=== PATIENT | female | born 1945 | race Caucasian/White ===

== ENCOUNTER → 2022-03-13 08:13 | Outpatient (BNVA) | payer MEDICARE, OTHER, SELFPAY | PROVIDERS: PCP Pediatrics; Visit Provider Psychiatry & Neurology Neurology | DX: G31.84 Mild cognitive impairment of uncertain or unknown etiology (principal); G47.33 Obstructive sleep apnea (adult) (pediatric); R25.1 Tremor, unspecified | CPT/HCPCS: 99212 ==

== ENCOUNTER → 2023-01-13 12:55 | Outpatient (BNVA) | payer MEDICARE, OTHER, SELFPAY | PROVIDERS: PCP Pediatrics; Visit Provider Nurse Practitioner Family | DX: G31.84 Mild cognitive impairment of uncertain or unknown etiology (principal); G47.33 Obstructive sleep apnea (adult) (pediatric); R25.1 Tremor, unspecified | CPT/HCPCS: 99212 ==

== ENCOUNTER 2023-07-08 10:12 | Outpatient (AMB) | payer MEDICARE, OTHER, SELFPAY ==
--- NOTE | 2023-07-08 10:07 | A.OFFVIS_ITS ---
Intake Vital Signs 07/08/23 10:19 Weight 164 lb BP 160/72 H Blood Pressure Location Lt brachial Position Sitting Pulse 63 Pulse Source Pulse Oximeter Pulse Oximetry (%) 97 Oxygen Delivery Method Room Air Intake Visit Reasons: 6m Follow up for LUANA - LVM Intake Note: F/U LUANA Feather Shaper Required: No Allergies pioglitazone [From Actos] Allergy (Severe, Verified 07/08/23 10:08) Anaphylaxis HPI HPI Comments History of Present Illness Details 77 y/o female comes with her daughter for followup of her cognitive disorder and LUANA. Pt reports that her memory is stable, but still forgetful. Sometiems she ask same questions more than 4 times. Her neuropsyhc eval was c/w mild cognitive impairment. She goes to congregational and having bible study weekly. Pt having knee pain and not physically active. The CPAP compliance and therapy response (04/04/23-07/02/23) reviewed. She is on APAP [id number]. Usage days 33 days and average usage hours 6 hours 20 min. The mean pressure is 8 and the residual AHI was 5.2 Pt reports that she feels air leaking and make her eyes puffy. She tried mask liner but not helpful. [facility]LY [facility], [facility] Medical History (Updated 01/13/23 @ 13:14 by Melania Gomes [facility]) Amputation of toe Arthritis C. difficile colitis CAD (coronary artery disease) CKD (chronic kidney disease) Diabetes H/O nephrolithotomy with removal of calculi HTN (hypertension) Hyperlipidemia Hypothyroid Mild cognitive impairment Obstructive sleep apnea Septic shock Toe amputee Tremors of nervous system Surgical History Hx of heart artery stent Family History Mother FH: lung cancer Father No problems noted. Family/Other Heart disease Family/Other Bladder cancer Social History (Updated 07/08/23 @ 10:19 by Bri Kingston [facility]) Alcohol intake: never Patient Tobacco Use Status: Never used Tobacco Review of Systems Const All systems reviewed & are unremarkable except as noted in HPI and below Physical Exam Vital Signs: Last Vital Signs Pulse 63 07/08/23 10:19 BP 160/72 H 07/08/23 10:19 Pulse Ox 97 07/08/23 10:19 Oxygen Delivery Method Room Air 07/08/23 10:19 Const General: cooperative, healthy appearing, comfortable and no acute distress Nutritional Appearance: average body habitus Orientation/consciousness: patient oriented x3 Neuro Other: Mild cedric postural and action tremors General: patient oriented x3 Psych Appearance: grossly normal Mental Status: mental status grossly normal Affect: normal affect Attitude: cooperative Assessment & Plan Assessment & Plan (1) Mild cognitive impairment: Code(s): G31.84 - Mild cognitive impairment of uncertain or unknown etiology (2) Obstructive sleep apnea: Code(s): G47.33 - Obstructive sleep apnea (adult) (pediatric) (3) Tremors of nervous system: Code(s): R25.1 - Tremor, unspecified Plan Advised patient to try new mask fitting session. Stressed compliance, use CPAP nightly and more than 4 hours. Continue to use APAP [id number]. Encouraged patient to have well balanced diet with increase physical and cognitive activity. Coding Level of Care Code Est Pt Level 4 (55024) Diagnoses Mild cognitive impairment G31.84 Obstructive sleep apnea G47.33 Tremors of nervous system R25.1
[2023-07-08 10:19] VITALS: BP 160/72; PULSE 63; O2SAT 97
== END 2023-07-08 10:50 | disposition home or self-care (01) ==
PROVIDERS: Visit Provider Nurse Practitioner Family
DX: G31.84 Mild cognitive impairment of uncertain or unknown etiology (principal); G47.33 Obstructive sleep apnea (adult) (pediatric); R25.1 Tremor, unspecified
CPT/HCPCS: 99214

== ENCOUNTER → 2023-07-08 10:12 | Outpatient (BNVA) | payer MEDICARE, OTHER, SELFPAY | PROVIDERS: Visit Provider Nurse Practitioner Family | DX: G47.33 Obstructive sleep apnea (adult) (pediatric) (principal); G31.84 Mild cognitive impairment of uncertain or unknown etiology; R25.1 Tremor, unspecified | CPT/HCPCS: 99212 ==

== ENCOUNTER 2024-01-06 09:02 | Outpatient (AMB) | payer MEDICARE, OTHER, SELFPAY ==
--- NOTE | 2024-01-06 09:12 | MHC.OFFVIS ---
Intake Vital Signs 01/06/24 09:18 Height 5 ft 5 in Weight 170 lb BMI 28.3 BP 120/80 Blood Pressure Location Lt brachial Position Sitting Pulse 69 Pulse Source Pulse Oximeter Pulse Oximetry (%) 94 Oxygen Delivery Method Room Air Intake Visit Reasons: 6 mnts f/u for sleep - LVM Intake Note: Patient presents 6 months f/u. having trouble using CPAP machine during the night and still not sleeping much Allergies pioglitazone [From Actos] Allergy (Severe, Verified 01/06/24 09:17) Anaphylaxis HPI HPI Comments History of Present Illness Details 78 y/o female comes with her daughter for followup of her cognitive disorder and LUANA. Pt reports that her memory is stable, but still forgetful. Her neuropsychology evaluation was c/w mild cognitive impairment. She goes to [employer] and having bible study weekly. Pt having knee pain and not physically active. The CPAP compliance and therapy response (10/06/23-01/06/24) reviewed. She is on APAP [id number]. Usage days 83% and average usage hours 6 hours 40 min. The max pressure is 10.4 and the residual AHI was 6. Pt reports that she sleeps better than before, still the mask is uncomfortable. Pt's daytime tiredness has improved. [facility] Medical History (Updated 01/13/23 @ 13:14 by Melania Elizondo) Toe amputee Mild cognitive impairment Tremors of nervous system Obstructive sleep apnea C. difficile colitis Septic shock Arthritis Hyperlipidemia CKD (chronic kidney disease) Hypothyroid HTN (hypertension) CAD (coronary artery disease) Diabetes Amputation of toe H/O nephrolithotomy with removal of calculi Surgical History Hx of heart artery stent Family History Mother FH: lung cancer Father No problems noted. Family/Other Heart disease Family/Other Bladder cancer Social History Alcohol intake: never Patient Tobacco Use Status: Never used Tobacco Review of Systems Const All systems reviewed & are unremarkable except as noted in HPI and below Physical Exam Vital Signs: Last Vital Signs Pulse 69 01/06/24 09:18 BP 120/80 01/06/24 09:18 Pulse Ox 94 01/06/24 09:18 Oxygen Delivery Method Room Air 01/06/24 09:18 BMI result Body Mass Index 28.3 Const General: cooperative, healthy appearing, comfortable and no acute distress Nutritional Appearance: average body habitus Orientation/consciousness: patient oriented x3 Neuro Other: Mild cedric postural and action tremors General: patient oriented x3 Psych Appearance: grossly normal Mental Status: mental status grossly normal Affect: normal affect Attitude: cooperative Assessment & Plan Assessment & Plan (1) Obstructive sleep apnea: Code(s): G47.33 - Obstructive sleep apnea (adult) (pediatric) (2) Mild cognitive impairment: Code(s): G31.84 - Mild cognitive impairment of uncertain or unknown etiology Plan Advised patient to continue to use CPAP at [id number] as patient experiences good clinical effects, better quality sleep and daytime sleepiness has improved. Stressed compliance, use CPAP nightly and more than 4 hours. Encouraged patient to have well balanced diet with increase physical and cognitive activity. Coding Level of Care Code Est Pt Level 3 (45400) Diagnoses Obstructive sleep apnea G47.33 Mild cognitive impairment G31.84
[2024-01-06 09:18] VITALS: BP 120/80; PULSE 69; O2SAT 94; BMI 28.3
== END 2024-01-06 09:43 | disposition home or self-care (01) ==
PROVIDERS: PCP Pediatrics; Visit Provider Nurse Practitioner Family
DX: G47.33 Obstructive sleep apnea (adult) (pediatric) (principal); G31.84 Mild cognitive impairment of uncertain or unknown etiology
CPT/HCPCS: 99213

== ENCOUNTER → 2024-01-06 09:02 | Outpatient (BNVA) | payer MEDICARE, OTHER, SELFPAY | PROVIDERS: PCP Pediatrics; Visit Provider Nurse Practitioner Family | DX: G47.33 Obstructive sleep apnea (adult) (pediatric) (principal); G31.84 Mild cognitive impairment of uncertain or unknown etiology | CPT/HCPCS: 99212 ==

== ENCOUNTER 2024-04-10 13:23 | Outpatient (AMB) | payer MEDICARE, OTHER, SELFPAY ==
[2024-04-10 13:37] VITALS: BP 126/64; PULSE 59; RESP 16; O2SAT 94; BMI 28.5
--- NOTE | 2024-04-10 13:37 | MHC.OFFVIS ---
Vital Signs 04/10/24 13:37 Height 5 ft 5 in Weight 171 lb 6 oz BMI 28.5 BP 126/64 Blood Pressure Location Rt brachial Position Sitting Respiration 16 Pulse 59 Pulse Source Pulse Oximeter Pulse Oximetry (%) 94 Oxygen Delivery Method Room Air Intake Visit Reasons: Follow up Intake Note: Pt presents for an evaluation s/p stroke on March 06, 2024. Delivery Man Required: No Allergies pioglitazone [From [employer]] Allergy (Severe, Verified 04/10/24 13:37) Anaphylaxis Medication List - Last Reconciled 04/10/24 by Evon Sullivan MD acetaminophen (Tylenol Extra Strength) 1,000 mg PO Q6H PRN alcaftadine 0.25% (Lastacaft) 1 drp ophthalmic (eye) DAILY PRN alcaftadine 0.25% 1 drp ophthalmic-Left .every other day allopurinol 100 mg PO DAILY alpha lipoic acid 200 mg PO DAILY amlodipine 10 mg PO DAILY apixaban (Eliquis) 5 mg PO BID ascorbic acid (vitamin C) 250 mg PO BID atorvastatin 80 mg PO DAILY [id number] 1.7 mg-400 mcg- 2.4 mcg (Neuriva Plus Brain Performance) caps PO DAILY bumetanide 1 mg PO DAILY calcitriol 0.25 mcg PO .every other day calcium carbonate (Calcium 600) 600 mg PO DAILY cholecalciferol (vitamin D3) 50 mcg PO DAILY ferrous sulfate 65 mg PO DAILY gabapentin 600 mg PO DAILY hydralazine 50 mg PO TID hydrocortisone 2.5% 1 appl ID BID-QID PRN insulin aspart U-100 (Novolog FlexPen U-100 Insulin aspart) 1 sliding scale dose subcut USEASDIRECTD insulin degludec 18 units subcut BEDTIME insulin degludec 8 units subcut DAILY Lactobacillus acidophilus (Probiotic) 10,000 mmu cells PO DAILY levothyroxine 112 mcg PO DAILY lifitegrast 5% (Xiidra) 1 drp ophthalmic (eye) BID mecobalamin (vitamin B12) 1,000 mcg PO DAILY metoprolol succinate ER 100 mg PO DAILY omeprazole 20 mg PO DAILY sodium bicarbonate 650 mg PO TID-QID PRN HPI Comments Details: 78y/o female comes for follow up . On March 06 ( 1month ago) she got up at 3am to use the bathroom and had a near fall. she was able to get back to the bed but was limping.when she woke up at 8 am - she could not walk and see out of her left eye. Her son in law noticed her right leg was weak and dragging she also has word retrieval issues she went to [place] [facility]- Acute CVA she stayed in the hospital 1 night and moved back to [place] for 13 days. she has improved but still mild weakness and vision issues.Her atorvostatin dose was increased from 20mg to 80 mg. she is compliant with CPAP. [facility] Medical History (Updated 04/10/24 @ 14:03 by Evon Sullivan MD) Right hemiparesis Cerebrovascular accident Toe amputee Mild cognitive impairment Tremors of nervous system Obstructive sleep apnea C. difficile colitis Septic shock Arthritis Hyperlipidemia CKD (chronic kidney disease) Hypothyroid HTN (hypertension) CAD (coronary artery disease) Diabetes Amputation of toe H/O nephrolithotomy with removal of calculi Surgical History Hx of heart artery stent Family History Mother FH: lung cancer Father No problems noted. Family/Other Heart disease Family/Other Bladder cancer Social History Alcohol intake: never Patient Tobacco Use Status: Never used Tobacco Physical Exam Vital Signs: Last Vital Signs Pulse 59 04/10/24 13:37 Resp 16 04/10/24 13:37 BP 126/64 04/10/24 13:37 Pulse Ox 94 04/10/24 13:37 Oxygen Delivery Method Room Air 04/10/24 13:37 BMI result Body Mass Index 28.5 Const General: cooperative, healthy appearing, comfortable and no acute distress Nutritional Appearance: average body habitus Orientation/consciousness: patient oriented x3 Eyes Pupils: Equal, round and reactive pupils present Neuro Other: Mild cedric postural and action tremors Mild right leg weakness and off balance General: patient oriented x3, tone normal, moves all extremities and no focal motor deficits Cranial nerves: Yes Facial sensation intact/muscles of mastication intact, Yes Equal, round and reactive pupils present, Yes Bilaterally intact EOM present, Yes Nystagmus not present, Yes Midline tongue present and Yes Symmetric palate elevation present Cognition (Neuro): abnormal cognition Gait exam (Neuro): Antalgic gait present Motor exam (neuro): 5/5 motor strength present throughout and Normal motor muscle tone present throughout Deep tendon reflexes (DTR's): Right triceps reflex intensity grade: 1+, Left triceps reflex intensity grade: 1+, Rt Biceps (C5, C6): 1+, Left biceps reflex intensity grade: 1+, Right brachioradialis reflex intensity grade: 1+, Left brachioradialis reflex intensity grade: 1+, Right patellar reflex intensity grade: 1+ and Left patellar reflex intensity grade: 1+ Coordination: [id number] test normal Psych Appearance: grossly normal Mental Status: mental status grossly normal Affect: normal affect Attitude: cooperative Assessment & Plan Assessment & Plan (1) Cerebrovascular accident: Comment: mild residual balance issues Code(s): I63.9 - Cerebral infarction, unspecified Category: Medical (2) Obstructive sleep apnea: Code(s): G47.33 - Obstructive sleep apnea (adult) (pediatric) Category: Medical (3) Mild cognitive impairment: Code(s): G31.84 - Mild cognitive impairment of uncertain or unknown etiology Category: Medical Plan Reports from [place] for review Speech therapy continue home PT OT continue eliquis 5mg bid Atrovostatin 80mg qd Coding Level of Care Code Est Pt Level 4 (02095) Diagnoses Cerebrovascular accident I63.9 Obstructive sleep apnea G47.33 Mild cognitive impairment G31.84
== END 2024-04-10 14:08 | disposition home or self-care (01) ==
PROVIDERS: PCP Pediatrics; Visit Provider Psychiatry & Neurology Neurology
DX: I69.393 Ataxia following cerebral infarction (principal); I69.319 Unspecified symptoms and signs involving cognitive functions following cerebral infarction; G47.33 Obstructive sleep apnea (adult) (pediatric)
CPT/HCPCS: 99214

== ENCOUNTER → 2024-04-10 13:23 | Outpatient (BNVA) | payer MEDICARE, OTHER, SELFPAY | PROVIDERS: PCP Pediatrics; Visit Provider Psychiatry & Neurology Neurology | DX: Z86.73 Personal history of transient ischemic attack (TIA), and cerebral infarction without residual deficits (principal); G47.33 Obstructive sleep apnea (adult) (pediatric); G31.84 Mild cognitive impairment of uncertain or unknown etiology | CPT/HCPCS: 99212 ==

== ENCOUNTER 2024-08-30 09:21 | Outpatient (AMB) | payer MEDICARE, OTHER, SELFPAY ==
--- NOTE | 2024-08-30 09:22 | MHC.OFFVIS ---
Vital Signs 08/30/24 09:24 Height 5 ft 5 in Weight 163 lb 2 oz BMI 27.1 BP 148/74 H Blood Pressure Location Rt brachial Position Sitting Respiration 16 Pulse 64 Pulse Source Pulse Oximeter Pulse Oximetry (%) 96 Oxygen Delivery Method Room Air Intake Visit Reasons: Follow up Intake Note: Pt presents for a 5 month follow up for CVA and cognitive impairment. 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 Cognition is worse.she repeats often, has trouble with word finding etc. she is independant in her ADLS.her daughter helps with cooking cleaning laundry. No falls since then. she lives with her daughters family. Her recent neuropsych tetsing showed decline c/w mild dementia - vascular. History from her last visit-On March 06 ( 1month ago) she got up at 3am to use the bathroom and had a near fall. she was able to get back to the bed but was limping.when she woke up at 8 am - she could not walk and see out of her left eye. Her son in law noticed her right leg was weak and dragging she also has word retrieval issues she went to [place] ER- Acute CVA she stayed in the hospital 1 night and moved back to [place] for 13 days. she has improved but still mild weakness and vision issues.Her atorvostatin dose was increased from 20mg to 80 mg. she is compliant with CPAP. [facility] Medical History (Updated 08/30/24 @ 09:41 by Evon Sullivan MD) Dementia Right hemiparesis Cerebrovascular accident Toe amputee Mild cognitive impairment Tremors of nervous system Obstructive sleep apnea C. difficile colitis Septic shock Arthritis Hyperlipidemia CKD (chronic kidney disease) Hypothyroid HTN (hypertension) CAD (coronary artery disease) Diabetes Amputation of toe H/O nephrolithotomy with removal of calculi Surgical History Hx of heart artery stent Family History Mother FH: lung cancer Father No problems noted. Family/Other Heart disease Family/Other Bladder cancer Social History Alcohol intake: never Patient Tobacco Use Status: Never used Tobacco Physical Exam Vital Signs: Last Vital Signs Pulse 64 08/30/24 09:24 Resp 16 08/30/24 09:24 BP 148/74 H 08/30/24 09:24 Pulse Ox 96 08/30/24 09:24 Oxygen Delivery Method Room Air 08/30/24 09:24 BMI result Body Mass Index 27.1 Const General: cooperative, healthy appearing, comfortable and no acute distress Nutritional Appearance: average body habitus Orientation/consciousness: patient oriented x3 Eyes Pupils: Equal, round and reactive pupils present Neuro Other: Mild cedric postural and action tremors Mild right leg weakness and off balance General: patient oriented x3, tone normal, moves all extremities and no focal motor deficits Cranial nerves: Yes Facial sensation intact/muscles of mastication intact, Yes Equal, round and reactive pupils present, Yes Bilaterally intact EOM present, Yes Nystagmus not present, Yes Midline tongue present and Yes Symmetric palate elevation present Cognition (Neuro): abnormal cognition Gait exam (Neuro): Antalgic gait present Motor exam (neuro): 5/5 motor strength present throughout and Normal motor muscle tone present throughout Coordination: [id number] test normal Psych Appearance: grossly normal Mental Status: mental status grossly normal Affect: normal affect Attitude: cooperative Assessment & Plan Assessment & Plan (1) Cerebrovascular accident: Comment: mild residual balance issues Code(s): I63.9 - Cerebral infarction, unspecified Category: Medical (2) Obstructive sleep apnea: Code(s): G47.33 - Obstructive sleep apnea (adult) (pediatric) Category: Medical (3) Dementia: Code(s): F03.90 - Unspecified dementia, unspecified severity, without behavioral disturbance, psychotic disturbance, mood disturbance, and anxiety Category: Medical Qualifiers: Dementia type: vascular dementia Dementia severity: mild Dementia behavioral or psychological symptom: without behavioral, psychotic, or mood disturbance or anxiety Qualified Code(s): F01.A0 - Vascular dementia, mild, without behavioral disturbance, psychotic disturbance, mood disturbance, and anxiety Plan Risk factor reduction Continue CPAP - compliance stressed Home PT OT and speech therapy will hold off on namenda and donepezil due to her CKD and cardiac issues. continue eliquis 5mg bid Atrovostatin 80mg qd Orders: [facility]errals [facility] Referral F01.A0 - Vascular dementia, mild, without behavioral disturbance, psychotic disturbance, mood disturbance, and anxiety, G81.91 - Hemiplegia, unspecified affecting right dominant side, I63.9 - Cerebral infarction, unspecified Coding Level of Care Code Est Pt Level 4 (69831) Complex EM visit Add On G2211 Diagnoses Cerebrovascular accident I63.9 Obstructive sleep apnea G47.33 Mild vascular dementia without behavioral disturbance, psychotic disturbance, mood disturbance, or anxiety F01.A0 Dementia type: vascular dementia Dementia severity: mild Dementia behavioral or psychological symptom: without behavioral, psychotic, or mood disturbance or anxiety
[2024-08-30 09:24] VITALS: BP 148/74; PULSE 64; RESP 16; O2SAT 96; BMI 27.1
== END 2024-08-30 09:52 | disposition home or self-care (01) ==
PROVIDERS: PCP Pediatrics; Visit Provider Psychiatry & Neurology Neurology
DX: I69.398 Other sequelae of cerebral infarction (principal); F01.A0 Vascular dementia, mild, without behavioral disturbance, psychotic disturbance, mood disturbance, and anxiety; G47.33 Obstructive sleep apnea (adult) (pediatric)
CPT/HCPCS: 99214; G2211

== ENCOUNTER → 2024-08-30 09:21 | Outpatient (BNVA) | payer MEDICARE, OTHER, SELFPAY | PROVIDERS: PCP Pediatrics; Visit Provider Psychiatry & Neurology Neurology | DX: Z86.73 Personal history of transient ischemic attack (TIA), and cerebral infarction without residual deficits (principal); G47.33 Obstructive sleep apnea (adult) (pediatric); F01.A0 Vascular dementia, mild, without behavioral disturbance, psychotic disturbance, mood disturbance, and anxiety | CPT/HCPCS: 99212 ==

== ENCOUNTER 2025-01-19 06:49 | Inpatient (IN) | payer MEDICARE, OTHER, SELFPAY ==
[2025-01-19] VITALS (33 sets, daily range): BP systolic 90–186; BP diastolic 62–96; PULSE 67–128; RESP 14–34; TEMP 34.9–38.1; O2SAT 65–100; BMI 24.1; BMI 24.6
--- NOTE | 2025-01-19 | ECG_ITS ---
Test Reason : Increased Trop Blood Pressure : */* mmHG Vent. Rate : 88 BPM Atrial Rate : 88 BPM P-R Int : 190 ms QRS Dur : 112 ms QT Int : 414 ms P-R-T Axes : 50 30 37 degrees QTcB Int : 500 ms Normal sinus rhythm Incomplete left bundle branch block Moderate voltage criteria for LVH, may be normal variant ( Sokolow-[employer] , Pineda product ) Nonspecific ST abnormality Prolonged QT Abnormal ECG When compared with ECG of 19-Jan-2025 07:18, Previous ECG has undetermined rhythm, needs review Nonspecific T wave abnormality, improved in Inferior leads Nonspecific T wave abnormality no longer evident in Lateral leads Referred By: Adela Madrid Electronically Signed By: ALBINA HERRERA
--- NOTE | ~2025-01-19 | XR_ITS ---
CLINICAL HISTORY: Intubated Chest X-ray, 1 View COMPARISON: CR - XR CHEST 1V - 01/29/25 17:22 EST FINDINGS: No consolidation. Mild bibasilar atelectasis. No pleural effusion. No pneumothorax. Stable heart size. No acute fracture. Endotracheal tube in place with tip 1.7 cm above the jeremías. Right internal jugular central line in place with tip projecting over the cavoatrial junction. Enteric tube has been removed. IMPRESSION: No acute findings. Support devices as above. This document has been electronically signed by: Ken Batista MD on 01/29/2025 22:35:10
--- NOTE | ~2025-01-19 | CT_ITS ---
EXAMINATION: CT HEAD WITHOUT CONTRAST CLINICAL INFORMATION: Altered mental status. COMPARISON: 02/06/2025. TECHNIQUE: Contiguous axial imaging was performed from the skull base to vertex without intravenous administration of contrast. This CT examination was performed using dose optimization techniques as appropriate, variously including the following: *Automated exposure control *Adjustment of mA and/or kV according to patient size (this includes techniques or standardized protocols for targeted exams where dose is matched to indication/reason for exam; i.e. extremities or head) *Use of iterative reconstruction technique FINDINGS: There is no evidence of intracranial hemorrhage or extra-axial fluid collection. There is no mass effect, or edema. No CT evidence of acute territorial infarct. Ventricles, sulci, and cisterns mildly diffusely prominent, in keeping with mildly age advanced involutional changes. No hydrocephalus. No midline shift. Negative hyperdense MCA sign. Negative insular ribbon sign. Patchy periventricular and deep white matter hypoattenuation is consistent with moderate small vessel ischemic changes. Old lacunar type infarcts left greater than right basal ganglia and bilateral thalami. Atheromatous calcification of the bilateral carotid siphons and V4 segments vertebral arteries bilaterally. Globes and orbital contents image normally. There are bilateral lens replacements. No extracranial soft tissue abnormalities. The paranasal sinuses, mastoid air cells, and tympanic cavities are normally aerated. No suspicious bony abnormalities. There are no acute fractures evident. Degenerative changes left TM joint. CT/CT head/brain wo IV con IMPRESSION: 1. No acute intracranial abnormality. 2. Moderate changes of small vessel ischemia. Old lacunar type infarcts bilateral basal ganglia and bilateral thalami. 3. Mildly age advanced cerebral and cerebellar involutional changes. 4. MRI could be performed for more definitive evaluation. Electronically signed by: Lon Spears MD 02/26/2025 04:20 PM EDT
--- NOTE | ~2025-01-19 | IR_ITS ---
CLINICAL HISTORY: End-stage renal disease. The patient presents to interventional radiology for placement of a tunneled central venous catheter for hemodialysis. PROCEDURES: 1. Real-time ultrasound-guided access into the right internal jugular vein after documentation of selected vessel patency, and permanent imaging storing in the patient record. 2. Placement of a 14.5 fr 23 cm tunneled, dual-lumen hemodialysis catheter. MEDICATIONS: -Fentanyl Lidocaine 1% 10 mL SQ. -For additional details, please see nursing flowsheet. COMPLICATIONS: None. ESTIMATED BLOOD LOSS: <5 ml SPECIMENS: None FLUOROSCOPY TIME: 0.3 min PROCEDURE NOTE: The procedure, risks, benefits, and alternatives were carefully explained to patient, and written informed consent was obtained. The patient was placed supine on the fluoroscopy table. A timeout was performed. The right neck and chest was prepped and draped in usual sterile fashion. Local anesthesia was administered to the access site with lidocaine. Under ultrasound guidance, the right internal jugular vein was accessed with a 5 Fr micropuncture set. A 0.035 in wire was advanced to the IVC to maintain access during the tunneling process. Next, subcutaneous lidocaine was administered to the chest. Using blunt dissection, a subcutaneous tunnel was created that connects from the upper chest to the venotomy site. The 23 cm tip to cuff dialysis catheter was pulled through the tunnel. The tract in the vein was dilated and a peel-away sheath was advanced over the wire. The catheter was advanced through the sheath, which was subsequently peeled away. The catheter was tested, flushed, and sutured to the skin with its tip in the high right atrium. A permanent fluoroscopic image of the chest was saved to PACS. The catheter ports were packed with heparin per routine protocol. The patient was stable after the procedure and was transferred to the post anesthesia care unit. This procedure was performed under moderate sedation with a dedicated nurse and continuous monitoring of vital signs. FINDINGS: 1. Patent right internal jugular vein. 2. Placement of a 23 cm tip to cuff tunneled, dual-lumen hemodialysis catheter as above. 3. Catheter flushes and aspirates very well with a 10 mL syringe. No pneumothorax. IR/IR cvc insert central tunnel IMPRESSION: Placement of a tunneled hemodialysis catheter in the right internal jugular vein. PLAN: -The catheter may be used immediately. Electronically signed by: Mayank De La Rosa MD 03/28/2025 03:04 PM EDT RP
--- NOTE | ~2025-01-19 | CT_ITS ---
EXAMINATION: CT HEAD WITHOUT CONTRAST CLINICAL INFORMATION: Altered mental status. COMPARISON: None available. Correlation made with MR brain 11/03/2021. TECHNIQUE: Contiguous axial imaging was performed from the skull base to vertex without intravenous administration of contrast. This CT examination was performed using dose optimization techniques as appropriate, variously including the following: *Automated exposure control *Adjustment of mA and/or kV according to patient size (this includes techniques or standardized protocols for targeted exams where dose is matched to indication/reason for exam; i.e. extremities or head) *Use of iterative reconstruction technique FINDINGS: There is no evidence of intracranial hemorrhage or extra-axial fluid collection. There is no mass effect, or edema. No CT evidence of acute territorial infarct. Ventricles, sulci, and cisterns are normal in size and configuration for patient age. No hydrocephalus. No midline shift. Negative hyperdense MCA sign. Negative insular ribbon sign. Patchy periventricular and deep white matter hypoattenuation is consistent with mild to moderate small vessel ischemic changes. Old lacunar type infarctions noted in the anterior gangliocapsular regions. Mild atheromatous calcification of the bilateral carotid siphons and V4 segments vertebral arteries bilaterally. Globes and orbital contents image normally. Bilateral lens replacements. Extracranial soft tissues demonstrate endotracheal tube and orogastric tube within the oropharynx. No additional abnormality. The paranasal sinuses, mastoid air cells, and tympanic cavities are normally aerated. No suspicious bony abnormalities. There are no acute fractures evident. There are moderate degenerative changes in the left TM joint. CT/CT head/brain wo IV con IMPRESSION: 1. No acute intracranial abnormality. Stable chronic white matter changes likely related to small vessel ischemia. 2. Endotracheal tube and enteric tube course to the oropharynx. 3. Moderate degenerative arthropathy left TM joint. Electronically signed by: Lon Spears MD 01/19/2025 09:15 AM [facility]
--- NOTE | ~2025-01-19 | XR_ITS ---
CLINICAL HISTORY: ogt placement 1 view chest x-ray Comparison: Same date Findings: NG tube tip below diaphragm and not visualized. Endotracheal tube tip 3.8 cm above jeremías. Right central line tip is unchanged. Patchy right basilar consolidation has developed. New medial left lung base atelectasis. Heart size normal. No bony abnormality. Impression: Support lines as listed above Patchy right base consolidation Medial left base atelectasis This document has been electronically signed by: Feroz Mai MD on 01/30/2025 19:07:33
--- NOTE | ~2025-01-19 | XR_ITS ---
CLINICAL HISTORY: SOB 1 view chest x-ray Comparison: CR - XR CHEST 1V - 01/27/25 20:38 EST Findings: Improving right basilar opacity. Tubes and lines appear stable. Normal size heart. No acute fracture. IMPRESSION: Improving right basilar opacity. Persistent mild interstitial prominence. This document has been electronically signed by: Meek Wills MD on 01/29/2025 18:05:21
--- NOTE | ~2025-01-19 | CT_ITS ---
CLINICAL HISTORY: encephalopathy CT head without contrast Comparison: CT/VA/SR - CT HEAD/BRAIN WO IV CON - 01/19/25 08:33 EST Findings: No intra-axial mass, midline shift, hydrocephalus, or acute hemorrhage. Small new area of hypodensity within the left basal ganglia may represent acute lacunar infarct. Moderate generalized cerebral volume loss and mild chronic microvascular ischemic changes of the periventricular and subcortical white matter. The visualized paranasal sinuses and mastoid air cells are normal. The orbits are within normal limits. No skull fracture. IMPRESSION: Small new area of hypodensity within the left basal ganglia may represent acute lacunar infarct. If clinically appropriate, MRI brain without contrast can be obtained for further evaluation. No evidence of acute territorial infarct or intracranial hemorrhage. This document has been electronically signed by: Timoteo Ji MD on 02/06/2025 21:40:52
--- NOTE | ~2025-01-19 | XR_ITS ---
CLINICAL HISTORY: confirm surgical clip placement to prior KUB 1 view abdomen Comparison: X-ray of the abdomen from 01/30/2025. Findings: Mild bibasilar atelectasis Enteric tube terminates about midbody of the stomach with side port just beyond expected cardia. No small bowel dilatation in the imaged abdomen. Postprocedural changes including right-sided clips and right upper quadrant coils, with new right-sided surgical clips about expected cecum. 6 mm metal is nonspecific between the 2 right-sided surgical clips. Moderate stool burden in the partially imaged abdomen. Vascular calcifications are redemonstrated. No definite osseous change in the [id number]. IMPRESSION: Enteric tube terminates in the stomach. This document has been electronically signed by: Andres Roque MD on 02/07/2025 19:25:50
--- NOTE | ~2025-01-19 | XR_ITS ---
EXAMINATION: XR CHEST CLINICAL INFORMATION: ogt placement COMPARISON: Chest 01/29/2025 TECHNIQUE: Frontal view of the chest was obtained. FINDINGS: There is a right central venous catheter tip in the proximal SVC. Endotracheal tube tip is in the stomach. Endotracheal tube is at the jeremías directed towards the right bronchus. The lungs are expanded and clear. Heart size and pulmonary vascularity is normal. No pleural effusion or pneumothorax. No gross bony abnormality seen. XR/XR chest 1V IMPRESSION: Endotracheal tube is at the jeremías facing the right bronchus and needs withdrawal at least by 2 cm. Right central venous catheter and enteric tube are in good position. The lungs are clear. Electronically signed by: Rony Viera MD 01/30/2025 09:40 AM [facility]
--- NOTE | ~2025-01-19 | XR_ITS ---
CLINICAL HISTORY: vented 1 view chest x-ray. Comparison: CR - XR CHEST 1V - 01/30/25 18:32 EST Findings: No airspace disease. Persistent interstitial thickening. No pneumothorax or pleural effusion. Patient is rotated Cardiomegaly.No mediastinal shift. Osseous structures intact. Tubes and catheters:ET tube 4 cm above jeremías. Enteric tube well within the stomach. Right IJ CVC tip SVC level. Impression: 1. No airspace disease. Stable cardiomegaly and interstitial thickening. 2. Well-positioned supportive devices. This document has been electronically signed by: Rafita Rosario MD on 02/03/2025 12:24:42
--- NOTE | ~2025-01-19 | XR_ITS ---
CLINICAL HISTORY: shortness of breath ; provider OK'd image for line placement. 1 view chest x-ray Comparison: None Findings: An enteric tube courses below the diaphragm likely terminating in the gastric fundus. Endotracheal tube terminates approximately 4 cm above the jeremías. Patchy bilateral airspace disease. Heart size is normal. IMPRESSION: 1. Enteric and endotracheal tubes appear to be in appropriate position. 2. Patchy bilateral airspace disease. This document has been electronically signed by: Carmen Brizuela MD on 01/19/2025 07:56:17
--- NOTE | ~2025-01-19 | XR_ITS ---
EXAMINATION: XR CHEST 1 VIEW HISTORY: s/p ngt placement COMPARISON: Comparison is made with the prior examination dated 02/03/2025. FINDINGS: A single AP portable view of the chest performed at ri 5:00 PM is submitted. Endotracheal tube and right internal jugular central venous catheter are unchanged in position. An orogastric tube is seen with its tip in the stomach. The lungs are expanded and clear. There is no pleural effusion, pneumothorax, or pulmonary vascular congestion. The heart is normal in size. The bones are intact. XR/XR chest 1V IMPRESSION: Lines and tubes in place as described. No acute cardiopulmonary abnormality. Electronically signed by: Fred Arias MD 02/14/2025 02:53 PM EDT
--- NOTE | ~2025-01-19 | XR_ITS ---
EXAMINATION: XR CHEST CLINICAL INFORMATION: NG tube placement COMPARISON: January 19, 2025. TECHNIQUE: Frontal view of the chest was obtained. FINDINGS: There is a feeding tube deep below the left hemidiaphragm in the left upper quadrant abdomen. Limited evaluation of the lungs demonstrated improved aeration/decreased interstitial lung edema. XR/XR chest 1V IMPRESSION: Feeding tube ending likely in the stomach region. Electronically signed by: George Johnson MD 01/24/2025 02:01 PM [facility]
--- NOTE | ~2025-01-19 | MR_ITS ---
EXAMINATION: MR BRAIN WITHOUT THEN WITH IV CONTRAST HISTORY: Persistent Encephalopathy TECHNIQUE: Sagittal T1, and axial T1, FLAIR, T2, gradient echo, and diffusion weighted MR images of the brain were obtained. Subsequently, axial, and coronal T1-weighted images were obtained after the administration of intravenous gadolinium. 5.5 mL Gadavist was administered. COMPARISON: Correlation is made with an unenhanced head CT dated 02/06/2025. FINDINGS: There is diffuse prominence of the ventricular system and cortical sulci, consistent with atrophy. Periventricular and subcortical white matter hyperintensities are noted on the FLAIR and T2-weighted images which are nonspecific, but often seen in the setting of small vessel ischemic disease. There is a focus of restricted diffusion in the left basal ganglia consistent with an acute infarct. Additional punctate foci of restricted diffusion are noted in the left posterior parietal lobe (series 7-2, images 17 and 19). There is no mass effect or midline shift. There are punctate foci of hemosiderin in the left frontal and bilateral temporal lobes. There is no evidence of acute intracranial hemorrhage. There is no abnormal contrast enhancement. Normal vascular flow voids are noted in the basilar and carotid arteries. The visualized paranasal sinuses are clear. MR/MR head/brain wo/w con IMPRESSION: Acute infarcts in the left basal ganglia and left posterior parietal lobe. Electronically signed by: Fred Arias MD 02/07/2025 03:47 PM EDT
--- NOTE | ~2025-01-19 | CT_ITS ---
EXAMINATION: CT CHEST WITHOUT CONTRAST CLINICAL INFORMATION: Respiratory failure. COMPARISON: None available. TECHNIQUE: Multidetector volumetric CT imaging of the chest was done. Axial MIP volume rendering provided. Sagittal and coronal reformatted images were obtained. This CT examination was performed using dose optimization techniques as appropriate, variously including the following: *Automated exposure control *Adjustment of mA and/or kV according to patient size (this includes techniques or standardized protocols for targeted exams where dose is matched to indication/reason for exam; i.e. extremities or head) *Use of iterative reconstruction technique FINDINGS: TUBES: -Endotracheal tube is present, terminating 3.0 cm above the jeremías, well-positioned. Impression enteric tube is present extending into the body of the stomach, well-positioned. LUNGS: -Small pleural effusions are present layering bilaterally. -Extensive consolidative changes are present involving the majority of the posterior lower lobes, significant portions of the superior right middle lobe, and large regions of the upper lobes right greater than left and in a more dependent fashion. Air bronchograms present. These opacities also demonstrate associated groundglass changes with interlobular septal thickening (crazy paving pattern). Findings most likely related to pulmonary interstitial and alveolar edema. Multifocal pneumonitis is not excluded. -Small airways demonstrate diffuse thickening proximally, findings typically associated with interstitial edema. -Central airways are patent. -No pneumothorax. MEDIASTINUM: -There is a small pericardial effusion. There is mild cardiac enlargement. There are extensive coronary calcifications present. The aorta is nonaneurysmal although demonstrates heavy atheromatous calcification. The main pulmonary artery is prominent, likely reflecting increased pulmonary pressures. -There are mildly prominent low density lymph nodes in the mediastinum and AP window region, nonspecific but can be associated with CHF. Largest in the AP window region measures 1.2 cm short axis (series 8, image 20). -Enteric tube courses through the esophagus. Esophagus appears normal. -Thyroid appears normal. CORONARY ARTERY CALCIFICATION: Heavy. AXILLA/CHEST WALL: No lymphadenopathy. UPPER ABDOMEN: -Unenhanced liver appears grossly normal. Portal veins appear mildly enlarged. This may be reflection of right heart failure. -Moderate pancreatic atrophy diffusely. -Mild hyperplasia of the left adrenal. -Small cyst in the superior left kidney measuring 1.5 cm. Mild nonspecific perirenal stranding. -Enteric tube within the body of the stomach. -Heavy atheromatous calcification of the aorta and its branches. -Gravel size layering gallstones in an otherwise normal-appearing gallbladder. OSSEOUS STRUCTURES: No suspicious lytic or blastic bone lesion. Mild spinal degenerative changes. CT/CT chest wo IV con IMPRESSION: 1. ET tube, and OG tube in good position. 2. Small layering pleural effusions bilaterally. 3. Mild cardiomegaly, with diffuse consolidations oriented dependently involving the majority of the bilateral posterior upper lobes and lower lobes. Air bronchograms present. Associated upper lobe groundglass opacities with interposed smooth interlobular septal thickening (crazy paving appearance) is highly suggestive of interstitial and alveolar pulmonary edema in this setting. Multifocal pneumonia is not excluded given the appearance. No pneumothorax. 4. Extensive atheromatous coronary and arterial calcifications. Enlarged main pulmonary artery suggests increased pulmonary pressures. 5. Low attenuating prominent mediastinal lymph nodes, nonspecific, but can be seen in the setting of CHF. 6. Cholelithiasis. 7. Enlarged portal veins, likely on the basis of increased right heart pressures. 8. Moderate to severe atrophy of the pancreas. 9. Additional ancillary findings as detailed in the body of the report. Electronically signed by: Lon Spears MD 01/19/2025 09:28 AM [facility] [place]
--- NOTE | ~2025-01-19 | XR_ITS ---
CLINICAL HISTORY: SOB 1 view chest x-ray Comparison: 01/27/2025, 12:50 p. M. Findings: Portions of the exam are obscured by overlying material. There is partial clearing of pulmonary consolidation. The exam is otherwise unchanged. IMPRESSION: 1. Improved appearance of the chest. This document has been electronically signed by: Skip Gan MD on 01/27/2025 21:08:56
--- NOTE | ~2025-01-19 | US_ITS ---
EXAMINATION: US RETROPERITONEAL LIMITED (RENAL ONLY) CLINICAL INFORMATION: Acute kidney injury. COMPARISON: 02/11/2022. 08/21/2021. Correlation made with CT chest 01/19/2025. TECHNIQUE: Real-time imaging of the kidneys. Exam done portably in the ICU. FINDINGS: RIGHT KIDNEY: 7.9 x 3.1 x 3.2 cm (SAG x AP x TRV). The kidney is diffusely atrophic with diffusely thinned and echogenic cortex. No calculi or focal parenchymal lesions. No hydronephrosis. LEFT KIDNEY: 11.0 x 5.4 x 5.0 cm (SAG x AP x TRV). The kidney is normal in size, contour, and echogenicity. Renal cortical thickness is normal. No calculi or suspicious focal parenchymal lesions. Prominent column of Andrea. No hydronephrosis. There are several simple renal cysts, largest in the upper pole measuring 1.0 cm. 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 This is unchanged from prior exams and benign. Incidental note made of echogenic sludge with small gallstones layering within the gallbladder. US/US renal BI IMPRESSION: 1. Moderate to severe diffuse right renal atrophy. 2. No hydronephrosis of either kidney. 3. 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 4. Incidental note made of echogenic sludge with tiny gallstones layering within the gallbladder. Electronically signed by: Lon Spears MD 01/23/2025 04:57 PM EST
--- NOTE | ~2025-01-19 | XR_ITS ---
CLINICAL HISTORY: Status post Femi placement 1 view chest x-ray Comparison: CR/SR - XR CHEST 1V - 01/24/25 13:06 EST Findings: The tip of the right IJ temporary hemodialysis catheter is in the region of the upper to mid SVC. There is new central vascular and interstitial prominence with diffuse alveolar densities. Trace bilateral effusions. Cardiac and mediastinal contours are stable No acute fracture. IMPRESSION: The tip of the temporary HD catheter is within the mid to upper SVC. New diffuse interstitial and central vascular prominence with ground-glass density suggestive of interstitial and alveolar edema. This document has been electronically signed by: Meek Wills MD on 01/27/2025 13:53:00
--- NOTE | ~2025-01-19 | XR_ITS ---
CLINICAL HISTORY: post EGD ? micro perf free air 1 view abdomen Comparison: CR - XR CHEST 1V - 01/30/25 18:32 EST Findings: No pneumoperitoneum or pneumatosis. No abnormal calcifications. No acute fractures. The enteric tube tip and the side port is within the gastric body. IMPRESSION: The bowel gas pattern is normal. No evidence of pneumoperitoneum. This document has been electronically signed by: Timoteo Ji MD on 01/30/2025 21:12:02
--- NOTE | ~2025-01-19 | XR_ITS ---
EXAMINATION: XR ABDOMEN KUB CLINICAL INDICATION: Please Assess GI Clip COMPARISON: 01/30/2025. TECHNIQUE: AP view of the abdomen. FINDINGS: Temperature probe within the rectum. Normal bowel gas pattern. No dilated loops. GI clips previously seen in the region of the duodenal bulb have migrated distally, are now located directly overlying the mid sacrum. This could potentially be within sigmoid colon or small bowel. Coil mass is again noted in the region of the gastroduodenal artery. No indirect evidence of free air. Extensive vascular calcifications present. XR/XR abdomen 1V IMPRESSION: 1. No acute findings of the abdomen. 2. GI clips previously seen in the region of the duodenal bulb at migrated distally and are now located directly overlying the mid sacrum. This could potentially be within sigmoid colon or small bowel. 3. GDA coil mass. 4. Temperature probe within the rectum. Electronically signed by: Lon Spears MD 02/07/2025 12:11 PM EDT
--- NOTE | ~2025-01-19 | IR_ITS ---
PROCEDURE: Angiogram, embolization HISTORY/INDICATION: Upper GI bleed status post endoscopy with marking clips placed. PROCEDURE: Informed consent was obtained following a discussion of the risks and benefits of the procedure with the patient's healthcare proxy. The patient was placed supine on the fluoroscopy table and the bilateral groins were sterilely prepped and draped. Preliminary ultrasound demonstrates moderate calcified plaque at the common femoral artery but widely patent superficial femoral and deep profunda femoral arteries. Following the administration of 1% lidocaine for local anesthesia, the right superficial femoral artery was accessed with a 21-gauge micropuncture needle under direct ultrasound guidance with permanent recordings and direct visualization of the needle entry into the vessel lumen. A 5 [place] sheath was placed. The celiac artery was accessed with a 5 [place] Cobra catheter. Angiogram demonstrates standard anatomy. No active extravasation or arterial abnormality is noted. A 2.4 [place] microcatheter was then used to catheterize the gastroduodenal artery (GDA). Angiogram does not demonstrate any active extravasation or arterial abnormality. Endoscopically placed clips are noted at the region of the proximal GDA. Given patient's clinical status and findings on endoscopy, we elected to empirically embolize the GDA. This was accomplished with detachable coils ranging in size from 3-6 mm as well as a very small aliquot of Gelfoam slurry. Completion angiogram demonstrates successful embolization of the GDA with no evidence of nontarget embolization. We then catheterized the superior mesenteric artery (SMA). Angiogram does not demonstrate any active extravasation or arterial abnormality. There are branch vessels leading to the GDA. However, the GDA itself is embolized and does not opacify. A limited attempt was made to catheterize the branch vessels leading towards the GDA, however, given the nonfilling of the GDA and no active extravasation, we elected to terminate the procedure. The catheter was removed. Angiogram through the sheath demonstrates no evidence of vascular injury with flow down the leg. The sheath was removed and hemostasis was achieved with a Celt device and manual compression. The patient tolerated the procedure well with no immediate complications. A dressing was applied. Complications: None immediately Estimated blood loss: Less than 10 mL IR/IR embolization arterial IMPRESSION: Angiogram does not demonstrate evidence of active extravasation or arterial abnormality. However, given clinical scenario, we elected to empirically embolize the gastroduodenal artery. This was successfully done with detachable coils. RECOMMENDATION: Acute right leg straight for 4 hours and monitor right groin puncture site. Electronically signed by: Mayank De La Rosa MD 01/30/2025 05:32 PM [facility]
--- NOTE | 2025-01-19 06:51 | ED_ITS ---
HPI - General Adult General Chief complaint: Altered Mental Status Stated complaint: SNF, AMS,hypoxia 55% RA,wheez,[id number], sepsis alert Time Seen by Provider: 01/19/25 06:51 History of Present Illness ED Provider: Curt TAYLOR narrative: The patient is a 79-year-old female who was brought to the emergency room by ambulance from [facility]. An ambulance was called because of altered mental status and respiratory distress. Paramedics found the patient somnolent and in respiratory distress with oxygen saturations around 65% on room air. Paramedics administered oxygen and DuoNeb updrafts. Her oxygen level came up to 88%. She remained somnolent EN route to the hospital. On arrival here the patient would open her eyes slightly in response to verbal stimuli but seemed confused and was not able to say anything coherent. According to the paramedics the detention staff said that the patient has deterioration had happened within the last hour or 2 before calling 911. I spoke to the patient's daughter. The patient was recently hospitalized at [facility] for labile blood pressures. The daughter was able to tell me that the patient has chronic renal insufficiency. I believe the patient has been living at home prior to December 30 when she was hospitalized at [facility]. At discharge from [facility] she went to [facility]. Related Data Home Medications ?Medication ?Instructions ?Recorded ?Confirmed alpha lipoic acid 200 mg capsule 600 mg PO BEDTIME 03/13/22 01/19/25 bumetanide 1 mg tablet 1 mg PO Q48H 03/13/22 01/19/25 hydralazine 50 mg tablet 75 mg PO QID 03/13/22 01/19/25 ascorbic acid (vitamin C) 250 mg 250 mg PO BID 01/13/23 01/19/25 tablet mecobalamin (vitamin B12) 1,000 1,000 mcg PO DAILY 01/13/23 01/19/25 mcg chewable tablet omeprazole 20 mg capsule,delayed 40 mg PO DAILY@0630 01/13/23 01/19/25 release sodium bicarbonate 650 mg tablet 1,300 mg PO TID 01/13/23 01/19/25 amlodipine 10 mg tablet 10 mg PO DAILY 04/10/24 01/19/25 atorvastatin 20 mg tablet 80 mg PO BEDTIME 04/10/24 01/19/25 gabapentin 600 mg tablet 600 mg PO BEDTIME 04/10/24 01/19/25 icosapent ethyl 1 gram capsule 1 g PO BID 08/30/24 01/19/25 (Vascepa) acetaminophen 325 mg tablet 650 mg PO Q6H PRN Pain/Fever 01/19/25 01/19/25 apixaban 2.5 mg tablet (Eliquis) 2.5 mg PO BID 01/19/25 01/19/25 bisacodyl 10 mg rectal suppository 10 mg [place] DAILY PRN Constipation 01/19/25 01/19/25 cholecalciferol (vitamin D3) 50 50 mcg PO DAILY 01/19/25 01/19/25 mcg (2,000 unit) tablet (Vitamin D3) clonidine HCl 0.1 mg tablet 0.1 mg PO BID 01/19/25 01/19/25 docusate sodium 100 mg capsule 100 mg PO DAILY 01/19/25 01/19/25 ferrous sulfate 137 mg (45 mg 137 mg PO DAILY 01/19/25 01/19/25 iron) tablet,extended release insulin glargine 100 unit/mL (3 20 unit subcut BEDTIME 01/19/25 01/19/25 mL) subcutaneous pen (Lantus Solostar U-100 Insulin) insulin lispro 100 unit/mL 1 sliding scale dose subcut 01/19/25 01/19/25 subcutaneous pen (Humalog KwikPen USEASDIRECTD (U-100) Insulin) labetalol 100 mg tablet 100 mg PO DAILY 01/19/25 01/19/25 levothyroxine 125 mcg tablet 125 mcg PO DAILY@0600 01/19/25 01/19/25 magnesium hydroxide 400 mg/5 mL 5 ml PO DAILY PRN Constipation 01/19/25 01/19/25 oral suspension (Milk of Magnesia) magnesium oxide 400 mg PO DAILY 01/19/25 01/19/25 polyethylene glycol 3350 17 17 g PO DAILY 01/19/25 01/19/25 gram/dose oral powder (Miralax) sennosides 8.6 mg tablet (senna) 17.2 mg PO BEDTIME Constipation 01/19/25 01/19/25 Allergies Allergy/AdvReac Type Severity Reaction Status Date / Time pioglitazone [From NEXAGEos] Allergy Severe Anaphylaxis Verified 01/19/25 07:00 Review of Systems 2 Review of Systems: Yes Unobtainable due to mental status [facility] Past Medical History Medical History (Updated 01/19/25 @ 09:19 by Mik Elias MD) Dementia Right hemiparesis Cerebrovascular accident Toe amputee Mild cognitive impairment Tremors of nervous system Obstructive sleep apnea C. difficile colitis Septic shock Arthritis Hyperlipidemia CKD (chronic kidney disease) Hypothyroid HTN (hypertension) CAD (coronary artery disease) Diabetes Amputation of toe H/O nephrolithotomy with removal of calculi Surgical History Hx of heart artery stent Family History Family History Mother FH: lung cancer Father No problems noted. Family/Other Heart disease Family/Other Bladder cancer Social History Social History Alcohol intake: never Patient Tobacco Use Status: Never used Tobacco Advance Directives: No Advance Directives Information Provided: No Physical Exam ED Vital Signs: Vital Signs - 24 hr 01/19/25 06:56 01/19/25 07:03 01/19/25 07:20 Temperature 99 F Pulse Rate 114 H 128 H 126 H Respiratory Rate 34 H 14 Blood Pressure 181/84 H 174/90 H 165/89 H Pulse Oximetry 93 97 88 L Oxygen Delivery Method Mechanical Ventilation Mechanical Ventilation Fraction of Inspired Oxygen 01/19/25 07:27 01/19/25 07:31 01/19/25 07:45 Temperature 100.0 F Pulse Rate 125 H 126 H Respiratory Rate 32 H 14 Blood Pressure 131/78 Pulse Oximetry 98 Oxygen Delivery Method Mechanical Ventilation Fraction of Inspired Oxygen 70 01/19/25 08:01 01/19/25 08:22 01/19/25 08:47 Temperature 100.6 F H 99.5 F Pulse Rate 92 85 83 Respiratory Rate 14 14 14 Blood Pressure 135/71 136/67 150/75 H Pulse Oximetry 99 99 100 Oxygen Delivery Method Mechanical Ventilation Mechanical Ventilation Mechanical Ventilation Fraction of Inspired Oxygen 70 70 70 01/19/25 09:21 Temperature 99.0 F Pulse Rate 75 Respiratory Rate 14 Blood Pressure 134/67 Pulse Oximetry 99 Oxygen Delivery Method Mechanical Ventilation Fraction of Inspired Oxygen 70 BMI result Body Mass Index 24.1 Const Other: The patient is a chronically ill-appearing older woman who looked quite acutely ill as well. She was very drowsy and showed increased work of breathing. Her eyes were closed. She opened her eyes to verbal stimuli but was not able to respond to coherently. She was diaphoretic HENMT Other: Face was symmetrical. Mucous membranes moist. Eyes General: appearance normal, both eyes and all related structures Neck Other: No obviously apparent JVD Neck: Yes full ROM Resp Other: Coarse rhonchorous breath sounds bilaterally. Increased work of breathing is present. GI Other: The abdomen was soft and seems nontender Skin Other: Pale and diaphoretic Neuro Other: The patient was somnolent. She opened her eyes slightly to loud verbal stimuli but did not speak coherently. No obvious facial asymmetry. The patient was diffusely weak Extrem Other: Some bilateral lower extremity edema Medications Administered Generic Name Dose Route Start Last Admin Trade Name Freq PRN Reason Stop Dose Admin Propofol 1,000 mg in 100 mls @ 0 mls/hr 01/19/25 07:15 01/19/25 07:09 Diprivan IVCONT 30 mcg/kg/min .Q0M KENYA 12.96 mls/hr Administration Protocol Per Protocol Discontinued Medications Generic Name Dose Route Start Last Admin Trade Name Freq PRN Reason Stop Dose Admin Albuterol/Ipratropium 3 ml 01/19/25 07:12 01/19/25 07:45 Albuterol/Iprat 2.5/0.5mg 3 Ml Ampul.Neb INHALE 01/19/25 07:13 3 ml ONCE ONE Administration Piperacillin Sod/Tazobactam 100 mls @ 200 mls/hr 01/19/25 07:08 01/19/25 08:18 Sod 4.5 gm/ Sodium Chloride IV 01/19/25 07:37 Infused ONCE ONE Infusion Vancomycin HCl 1,000 mg/ 535 mls @ 267.5 mls/hr 01/19/25 08:00 01/19/25 08:19 Vancomycin HCl 750 mg/ Sodium IV 01/19/25 09:59 267.5 mls/hr Chloride ONCE ONE Administration Ketamine HCl 110 mg 01/19/25 07:00 01/19/25 07:00 Ketamine Hcl/Ns 100 Mg/10 Ml Syringe IVPUSH 01/19/25 07:01 110 mg STAT STA Administration Rocuronium [place] 70 mg 01/19/25 07:00 01/19/25 07:00 Rocuronium [place] 50 Mg/5 Ml Vial IVPUSH 01/19/25 07:01 70 mg ONCE ONE Administration Medical Decision Making Medical Decision Making [facility] Narrative: The patient is a 79-year-old woman who arrived from the [facility] apparently becoming acutely ill this morning with significant shortness of breath and hypoxia. Also a decreased level of alertness. According to staff at the facility she was quite well yesterday and was looking forward to being discharged back home in a few days. Arrived with the an altered mental status. Her blood pressure was high. She was very short of breath and diaphoretic. Differential diagnosis seemed to be primarily congestive failure/acute pulmonary edema versus pneumonia. Chest x-ray was read as showing multifocal pneumonia but I thought it looked possibly more like pulmonary edema. She has a high white count. Her lactate is normal. Her pH was surprisingly normal. Her C-reactive protein is moderately elevated at 11. The patient looked very acutely ill on arrival with oxygen saturations in the high 80s on a non-rebreather. Given her diminished level of alertness it was not clear that she was awake enough to be on BiPAP and therefore we proceeded to. The actual intubation was done by the my colleague Slade Rodriguez under my direct supervision. She used a glide scope but if 7.5 ET tube. The patient was given IV ketamine and rocuronium for the intubation. The intubation was straight forward. An OG tube was placed. The patient was started on a propofol drip after intubation. The patient was given piperacillin/tazobactam and vancomycin after blood cultures were obtained. Temperature was 100.[address] scan of the head which showed no acute finding. A noncontrast CT scan of the chest was done which suggested pulmonary edema but could not exclude pneumonia. The patient will be admitted to the intensive care unit. Lab Data 01/19/25 07:00 01/19/25 07:01 Labs: Lab Results 01/19/25 01/19/25 01/19/25 Range/Units 07:00 07:01 07:16 WBC 16.1 H (4.8-10.8) X10*3/uL RBC 3.23 L (4.20-5.50) X10*6/uL Hgb 9.7 L (12.0-16.0) g/dl Hct 29.2 L (37.0-47.0) % MCV 90.4 (80.0-98.0) fL MCH 30.0 (27.0-33.0) pg MCHC 33.2 (31.0-35.0) g/dl RDW 14.2 (11.0-16.0) % Plt Count 267 (160-400) X10*3/uL MPV 10.5 (9.4-12.3) fL Immature Gran % (Auto) 1.4 H (0.0-0.4) % Neut % (Auto) 87.3 H (45-73) % Lymph % (Auto) 3.2 L (20-40) % [place] % (Auto) 7.3 (2-11) % Eos % (Auto) 0.2 (0-4) % Baso % (Auto) 0.6 (0-2) % Lymph # (Auto) 0.5 L (1.2-4.9) X10*3/uL [place] # (Auto) 1.2 (0.1-1.2) X10*3/uL Eos # (Auto) 0.0 (0.0-0.4) X10*3/uL Baso # (Auto) 0.1 (0.0-0.2) X10*3/uL Abs Immat Gran (auto) 0.23 H (0.00-0.03) X10*3/uL Absolute Neuts (auto) 14.0 H (2.0-8.3) x10*3/uL Absolute Nucleated RBC 0.000 (0.0-0.012) X10*3/uL Nucleated RBC % (auto) 0.0 (0.0-0.2) /100WBC PT 15.9 H (10.9-12.4) SEC INR 1.4 H (0.9-1.1) VBG pH 7.37 (7.32-7.43) VBG pCO2 46 mmHg VBG pO2 77 mmHg VBG HCO3 27 H (22-26) mmol/L VBG O2 Saturation 93.0 % VBG Base Excess 2.0 mmol/L Sodium 141 (135-145) mmol/L Potassium 4.2 (3.3-5.1) mmol/L Chloride 107 (96-108) mmol/L Carbon Dioxide 23 (22-29) mmol/L Anion Gap 15 (12-20) BUN 50 H (9-16) mg/dL Creatinine 2.61 H (0.5-1.4) mg/dL Estim Creat Clear Calc 17.6 Estimated GFR 18 Random Glucose 250 H (60-115) mg/dL Lactic Acid 1.3 (0.5-2.0) mmol/L Calcium 8.8 (8.4-10.2) mg/dL Magnesium 1.7 (1.6-2.6) mg/dL Total Bilirubin 1.0 (0.0-1.0) mg/dL Direct Bilirubin 0.3 (0.0-0.5) mg/dL AST 18 (5-31) U/L ALT 11 (0-31) U/L Alkaline Phosphatase 170 H (39-117) U/L Troponin I High Sens 42.8 H (<3.5-17.0) ng/L C-Reactive Protein 11.50 H (< or = 0.50) mg/dL B-Natriuretic Peptide 755 H (<100) pg/mL Total Protein 7.6 (6.5-8.0) g/dL Albumin 3.5 (3.5-5.0) g/dL Lipase 17 (8-78) U/L Urine Color Urine Appearance Urine pH (5.0-9.0) Ur Specific [place] (1.005-1.025) Urine Protein (Neg-Trace) mg/dL Urine Glucose (UA) (Negative) mg/dL Urine Ketones (Negative) mg/dL Urine Blood (Negative) Urine Nitrite (Negative) Ur Leukocyte Esterase (Negative) Urine RBC (0-2) /HPF Urine WBC (0-5) /HPF Ur Squamous Epith Cells (0-2) /HPF Urine Bacteria (None Seen) Hyaline Casts (0-2) /LPF Influenza Type A (PCR) NEGATIVE (Negative) Influenza Type B (PCR) NEGATIVE (Negative) RSV RNA Qual (PCR) NEGATIVE (Negative) SARS-CoV-2 RNA (RT-PCR) NEGATIVE (Negative) 01/19/25 Range/Units 07:18 WBC (4.8-10.8) X10*3/uL RBC (4.20-5.50) X10*6/uL Hgb (12.0-16.0) g/dl Hct (37.0-47.0) % MCV (80.0-98.0) fL MCH (27.0-33.0) pg MCHC (31.0-35.0) g/dl RDW (11.0-16.0) % Plt Count (160-400) X10*3/uL MPV (9.4-12.3) fL Immature Gran % (Auto) (0.0-0.4) % Neut % (Auto) (45-73) % Lymph % (Auto) (20-40) % [place] % (Auto) (2-11) % Eos % (Auto) (0-4) % Baso % (Auto) (0-2) % Lymph # (Auto) (1.2-4.9) X10*3/uL [place] # (Auto) (0.1-1.2) X10*3/uL Eos # (Auto) (0.0-0.4) X10*3/uL Baso # (Auto) (0.0-0.2) X10*3/uL Abs Immat Gran (auto) (0.00-0.03) X10*3/uL Absolute Neuts (auto) (2.0-8.3) x10*3/uL Absolute Nucleated RBC (0.0-0.012) X10*3/uL Nucleated RBC % (auto) (0.0-0.2) /100WBC PT (10.9-12.4) SEC INR (0.9-1.1) VBG pH (7.32-7.43) VBG pCO2 mmHg VBG pO2 mmHg VBG HCO3 (22-26) mmol/L VBG O2 Saturation % VBG Base Excess mmol/L Sodium (135-145) mmol/L Potassium (3.3-5.1) mmol/L Chloride (96-108) mmol/L Carbon Dioxide (22-29) mmol/L Anion Gap (12-20) BUN (9-16) mg/dL Creatinine (0.5-1.4) mg/dL Estim Creat Clear Calc Estimated GFR Random Glucose (60-115) mg/dL Lactic Acid (0.5-2.0) mmol/L Calcium (8.4-10.2) mg/dL Magnesium (1.6-2.6) mg/dL Total Bilirubin (0.0-1.0) mg/dL Direct Bilirubin (0.0-0.5) mg/dL AST (5-31) U/L ALT (0-31) U/L Alkaline Phosphatase (39-117) U/L Troponin I High Sens (<3.5-17.0) ng/L C-Reactive Protein (< or = 0.50) mg/dL B-Natriuretic Peptide (<100) pg/mL Total Protein (6.5-8.0) g/dL Albumin (3.5-5.0) g/dL Lipase (8-78) U/L Urine Color Yellow Urine Appearance Clear Urine pH 6.5 (5.0-9.0) Ur Specific [place] 1.025 (1.005-1.025) Urine Protein >=1000 (4+) H (Neg-Trace) mg/dL Urine Glucose (UA) 100 H (Negative) mg/dL Urine Ketones Negative (Negative) mg/dL Urine Blood Negative (Negative) Urine Nitrite Negative (Negative) Ur Leukocyte Esterase Negative (Negative) Urine RBC 0-2 (0-2) /HPF Urine WBC 0-5 (0-5) /HPF Ur Squamous Epith Cells 0-2 (0-2) /HPF Urine Bacteria None Seen (None Seen) Hyaline Casts 3-5 (0-2) /LPF Influenza Type A (PCR) (Negative) Influenza Type B (PCR) (Negative) RSV RNA Qual (PCR) (Negative) SARS-CoV-2 RNA (RT-PCR) (Negative) Independent Interpretation I performed an independent interpretation of an: EKG Interpretation: EKG at 07:18 shows a narrow complex tachycardia which is probably atrial flutter at 126 beats per minute. Critical Care Time Critical Care Time Critical Care Time: Yes Total Critical Care Time: 35 Attestation: The patient was critically ill with a high probability of imminent or life- threatening deterioration. ?I spent greater than 30 minutes of discontinuous time evaluating the patient, delivering critical care at the bedside, discussing evaluating data with consultants. ?Critical care time does not include time spent performing separately billable procedures or teaching. ?Time spent performing critical care with 35 minutes. Discharge Plan Discharge Clinical Impression: Respiratory failure, Pneumonia Patient Disposition: Admitted As Inpatient Interventions: Admission Worksheet (ED) Last Done: 01/19/25 10:14 Discharge Date/Time: 01/19/25 10:14
--- NOTE | 2025-01-19 06:51 | ECG_ITS ---
Test Reason : unresponsive Blood Pressure : */* mmHG Vent. Rate : 126 BPM Atrial Rate : 126 BPM P-R Int : 152 ms QRS Dur : 104 ms QT Int : 344 ms P-R-T Axes : 251 35 240 degrees QTcB Int : 498 ms Undetermined rhythm Left ventricular hypertrophy with repolarization abnormality ( Pineda product ) Abnormal ECG No previous ECGs available Referred By: Mik Elias Electronically Signed By: ALBINA HERRERA
[2025-01-19] MEDS: Rocuronium Bromide 50 MG/5 ML VIAL 70 MG IVPUSH (07:00)
[2025-01-19] MEDS: Ketamine HCl/NS 100 MG/10 ML SYRINGE 110 MG IVPUSH (07:00)
--- NOTE | 2025-01-19 07:00 | CA_ITS ---
Transthoracic Echocardiogram Patient (Last, First, Middle): Radha Wright, Gender: Female Date of : 1945 Age: 79 Procedure Date: 01/19/2025 Procedure Type: Transthoracic Echocardiogram Location: ICU Height: 165.1 cm Weight: 71.67 kg BSA: 1.79 m2 Heart Rate: bpm BP: 134 / 67 mmHg [employer]: Referring MD: Carmen Rodriguez MD Symptoms: Please Assess Function, c/f CHF Study Quality: Adequate w Contrast ECG Rhythm: Sinus Conclusions: - The left ventricular systolic function is severely decreased. The calculated ejection fraction is 29% by biplane method. - Evidence suggests grade II (moderate) diastolic dysfunction. - There is mild mitral valve regurgitation. - There is mild to moderate tricuspid valve regurgitation. Findings Procedure Information Contrast agent, definity, is being given per protocol without apparent complications. Left Ventricle Normal left ventricular cavity size. There is mildly increased left ventricular wall thickness. The left ventricular systolic function is severely decreased. The calculated ejection fraction is 29% by biplane method. Evidence suggests grade II (moderate) diastolic dysfunction. Globally hypokinetic. Right Ventricle Normal right ventricular cavity size and systolic function. Atria The left atrium is mildly dilated. The right atrium is normal in size. Aortic Valve There is mild calcification of the aortic valve. There is no aortic valve stenosis. There is mild aortic valve regurgitation. Mitral Valve There is mild anterior mitral leaflet thickening. There is mild mitral valve regurgitation. There is no mitral valve stenosis. Pulmonic Valve The pulmonic valve is likely normal. Tricuspid Valve There is mild to moderate tricuspid valve regurgitation. There is no evidence of pulmonary hypertension. Great Vessels The asc aorta is normal in size. Venous The inferior vena cava is dilated. (intubated) Pericardium/Pleural There is a trivial pericardial effusion. Prior Study Comparison No prior study available for comparison. Measurements 2D Linear Measurements IVSd: 1.17 0.6-0.9/0.6-1.0 cm LVIDd: 4.64 3.9-5.3/4.2-5.9 cm LVIDd Index: 2.59 2.4-3.2/2.2-3.1 cm/m2 LVIDs: 3.67 2.0-3.6 cm LVPWd: 1.16 0.7-1.1 cm Ao Root: 3.20 2.1-3.5 cm LA Diam: 3.90 2.7-3.8/3.0-4.0 cm LAIDs Index: 2.18 1.5-2.3 cm/m2 LV Mass: 248.26 67-162/88-224 g LV Mass Index: 138.69 43-95/49-115 g/m2 LVOT Diam: 2.00 3.0+(-)1.3 cm 2D Systolic Function EF 4C: 28.40 >55% EF 2C: 28.90 >55% EF BiP: 29.10 >55% Mitral Valve MV Pk E: 1.02 MV PK A: 0.89 MV Decel Time: 168.00 E/A: 1.10 E'Lateral: 7.07 E'Medial: 4.57 E/E' Med: 22.30 E/E' Lat: 14.40 PHT: 49.00 MVA PHT: 4.49 Decel [place]: 6.08 Aortic Valve AoV Pk Leonardo: 1.56 AoV Mn Leonardo: 1.06 AoV VTI: 0.44 AoV Pk Grad: 10.00 Aov Mn Grad: 5.00 [place] Cont.VTI: 1.66 LVOT LVOT Pk Leonardo: 0.94 LVOT Mn Leonardo: 0.60 LVOT VTI: 0.23 LVOT Pk Grad: 4.00 LVOT Mn Grad: 2.00 LVOT Diam: 2.00 LVOT Area: 3.14 Diastolic Function MV Pk E: 1.02 MV Pk A: 0.89 E/A: 1.10 E'Medial: 4.57 E/E' Med: 22.30 E' Laterial: 7.07 E/E' Lat: 14.40 Right Ventricle TAPSE (mm): 21.00 Tricuspid Valve TR Pk Leonardo: 2.97 TR Pk Grad: 35.00 Great Vessels Aorta Ao Root-2D: 3.20 2.0-3.7 cm Ao Asc: 2.90 2.1-3.4 cm Pulmonary Valve PV Pk Leonardo: 0.83 Peak PV Grad: 3.00 Updated in Other Vendor System with Status of Final Delvin Peralta MD electronically signed on 01/19/2025 4:00:59 PM with status of Final
[2025-01-19] MEDS: propofoL 1,000 MG/100 ML VIAL 12.96 MG IVCONT (07:09)
[2025-01-19 07:14] LABS: MANUAL DIFF FLAG NO
[2025-01-19 07:19] LABS: Venous Blood Gas Refer to POC result
[2025-01-19 07:19] LABS: VBG HCO3 27 mmol/L (22-26); VBG pCO2 46 mmHg; VBG pH 7.37 (7.32-7.43); VBG pO2 77 mmHg
[2025-01-19 07:23] LABS: Basophils Absolute Auto 0.1 X10*3/uL (0.0-0.2); Basophils Percent Auto 0.6 % (0-2); Eosinophils Percent Auto 0.2 % (0-4); Hematocrit 29.2 % (37.0-47.0); Hemoglobin 9.7 g/dl (12.0-16.0); Imm Gran Abs Auto 0.23 X10*3/uL (0.00-0.03); Imm Gran Pct Auto 1.4 % (0.0-0.4); Lymphocytes Absolute Auto 0.5 X10*3/uL (1.2-4.9); Lymphocytes Percent Auto 3.2 % (20-40); Mean Corpuscular HGB Conc 33.2 g/dl (31.0-35.0); Mean Corpuscular Volume 90.4 fL (80.0-98.0); Mean Platelet Volume 10.5 fL (9.4-12.3); Monocytes Absolute Auto 1.2 X10*3/uL (0.1-1.2); Monocytes Percent Auto 7.3 % (2-11); Neutrophils Percent Auto 87.3 % (45-73); Platelet Count 267 X10*3/uL (160-400); Red Blood Count 3.23 X10*6/uL (4.20-5.50); Red Cell Distribution Width 14.2 % (11.0-16.0); White Blood Count 16.1 X10*3/uL (4.8-10.8)
[2025-01-19 07:23] LABS: INTERNATIONAL NORM RATIO 1.4 (0.9-1.1); Prothrombin Time 15.9 SEC (10.9-12.4)
[2025-01-19 07:28] LABS: Appearance Urine Clear; Color Urine Yellow; Glucose Urine UA 100 mg/dL (Negative); Leukocyte Esterase Urine Negative (Negative); Nitrite Urine Negative (Negative); PH 6.5 (5.0-9.0); Specific Gravity - Urine 1.025 (1.005-1.025); UMIC TRIGGER UACC YES; Urine Blood Negative (Negative); Urine Ketones Negative (Negative); Urine Protein >=1000 (4+) mg/dL (Neg-Trace)
[2025-01-19 07:35] LABS: Lactic Acid 1.3 mmol/L (0.5-2.0)
[2025-01-19 07:36] LABS: Alanine Aminotransferase 11 U/L (0-31); Albumin Level 3.5 g/dL (3.5-5.0); Alkaline Phosphatase 170 U/L (39-117); Anion Gap 15 (12-20); Aspartate Amino Transferase 18 U/L (5-31); Bilirubin Direct 0.3 mg/dL (0.0-0.5); Blood Urea Nitrogen 50 mg/dL (9-16); Calcium 8.8 mg/dL (8.4-10.2); Carbon Dioxide 23 mmol/L (22-29); Chloride 107 mmol/L (96-108); Creatinine Clr Calc Pharmacy 17.6; Estimated Glomerular Filt Rate 18; Glucose Random 250 mg/dL (60-115); Lipase 17 U/L (8-78); Magnesium 1.7 mg/dL (1.6-2.6); Potassium 4.2 mmol/L (3.3-5.1); Sodium 141 mmol/L (135-145); Total Protein 7.6 g/dL (6.5-8.0)
[2025-01-19 07:41] LABS: Troponin-I High Sensitivity 42.8 ng/L (<3.5-17.0)
[2025-01-19 07:41] LABS: Bacteria Urine None Seen (None Seen); RBC Urine 0-2 /HPF (0-2); Squamous Epithelial Cell Urine 0-2 /HPF (0-2); WBC Urine 0-5 /HPF (0-5)
[2025-01-19 07:42] LABS: B Type Natriuretic Peptide 755 pg/mL (<100)
[2025-01-19] MEDS: Piperacillin Sodium/Tazobactam 4.5 GM in 0.9 % Sodium Chloride 100 ML IV ×2 (07:42→20:35)
[2025-01-19] MEDS: Albuterol/Iprat 2.5/0.5MG 3 ML AMPUL.NEB INHALE (07:45)
[2025-01-19] MEDS: vancomycin HCL 1,000 MG, vancomycin HCL 750 MG in 0.9 % Sodium Chloride 500 ML 267.5 MG IV (08:19)
[2025-01-19 08:33] LABS: Influenza A PCR NEGATIVE (Negative); Influenza B PCR NEGATIVE (Negative); Resp Syncy Virus RNA Qual PCR NEGATIVE (Negative); SARS COV2 PCR INHOUSE NEGATIVE (Negative)
--- OUTSIDE RECORDS SUMMARY | 2025-01-19 08:43 | XMS_ITS | Clinical Summary ---
Author Organization [facility] Address [address] [place] [address] Phone Care Team Providers Care Health Sciences Department Chair Name Role Phone Jacques Cline MD Primary Care Provider [phone] Allergies Active Allergy Reactions Criticality Noted Date Comments Adhesive Tape 10/28/2021 Flurandrenolide Rash,Other (see comments) Low 02/03 Nitrofurantoin Other (see comments) Medium 01/25/2012 Pioglitazone 10/28/2021 Medications cholecalciferol (VITAMIN D-3) 25 MCG (1000 UT) capsule Take 2,000 Units by mouth 3 Active gabapentin (NEURONTIN) 300 MG capsule 1 Active hydrocortisone 2.5 % cream Apply topically Ac tive Icosapent Ethyl 1 g capsule Take 2 capsules by mouth Active indomethacin (INDOCIN) 25 MG capsule Take 25 mg by mouth Active insulin aspart (NovoLOG) 100 UNIT/ML injection Inject under the skin Active pravastatin (PRAVACHOL) 80 MG tablet Take 1 tablet by mouth 1 (one) time each day 1 Active spironolactone (ALDACTONE) 25 MG tablet Comments: Filled Date: Apr 11 2020 2:18PM Patient Notes: TAKE 1 TABLET BY MOUTH EVERY 48 HOURS Duration: 90 9 Active amLODIPine (NORVASC) 5 MG tablet TAKE 1 TABLET BY MOUTH EVERY DAY 90 tablet 7 1 Active Brilinta 90 MG tablet Take 1 tablet by mouth 1 (one) time each day 1 Active Thiamine HCl (vitamin B-1) 50 MG tablet Take 1 tablet by mouth 1 (one) time each day 1 Active amoxicillin-cla vulanate (AUGMENTIN) 500-125 MG per tablet 1 Active azithromycin (ZITHROMAX) 250 MG tablet TAKE 1 TABLET BY MOUTH A SINGLE DOSE 1 Active vancomycin (VANCOCIN) 125 MG capsule 1 Active [facility] Dig[facility]ive Probiotic 250 MG capsule 1 Active hydroCHLOROthia zide (HYDRODIURIL) 50 MG tablet Take 50 mg by mouth 2 (two) times a day Active olmesartan (BENICAR) 20 MG tablet TAKE 1 TABLET BY MOUTH EVERY DAY 90 tablet 3 2 Active allopurinol (ZYLOPRIM) 100 MG tablet Take 200 mg by mouth 1 (one) time each day 6 Active amLODIPine (NORVASC) 10 MG tablet Take 1 tablet by mouth 1 (one) time each day 2 Active Alpha-Lipoic Acid 300 MG capsule Take by mouth Active ammonium lactate (LAC-HYDRIN) 12 % lotion ammonium lactate 12 % lotion APPYL TO LEGS/FEET 1 TO 2 TIMES DAILY Active Eliquis 5 MG tablet Take 5 mg by mouth 2 Active atorvastatin (LIPITOR) 20 MG tablet Take 20 mg by mouth 1 (one) time each day 2 Active benzocaine (BABY ORAJEL) 7.5 % oral gel See Instructions, Topically Every 6 hours 3 days, # 1 each, 0 Refills, Maintenance, 11/20/21 15:05:00 EST, Gel, [facility] 3, Partial fill upon patient request if the prescription is for a schedule II opioid drug., Topically Every 6 hours... 1 Active Butoconazole Nitrate, 1 Dose, (Gynazole-1) 2 % cream at bed time Active clopidogrel (PLAVIX) 75 MG tablet Take 75 mg by mouth 1 (one) time each day 2 Active cycloSPORINE (RESTASIS) 0.05 % ophthalmic emulsion Restasis 0.05 % eye drops in a dropperette Active Ferrous Fumarate 325 (106 Fe) MG tablet ferrous fumarate 325 mg (106 mg iron) tablet Take by oral route. Active hydrALAZINE 50 MG tablet Take 50 mg by mouth 1 Active omeprazole (PriLOSEC) [address] capsule Take 20 mg by mouth 2 Active levothyroxine (SYNTHROID, LEVOTHROID) 112 MCG tablet Take 112 mcg by mouth 8 Active lisinopril 20 MG tablet lisinopril 20 mg tablet Active metoprolol tartrate (LOPRESSOR) 100 MG tablet Take 100 mg by mouth 8 Active sodium bicarbonate 650 MG tablet Take 1,300 mg by mouth in the morning and 1,300 mg at noon and 1,300 mg in the evening. 2 Active terconazole (TERAZOL 7) 0.4 % vaginal cream at bed time Ac tive triamcinolone (KENALOG) 0.5 % cream triamcinolone acetonide 0.5 % topical cream APPLY TO AFFECTED AREA TWICE DAILY Active Bristol-3 Fatty Acids (FISH OIL PO) Take by mouth Active Insulin Degludec (TRESIBA SC) Inject under the skin Active calcitriol (ROCALTROL) 0.25 MCG capsule TAKE 1 CAPSULE BY MOUTH EVERY OTHER DAY 45 capsule 4 3 Active bumetanide (BUMEX) 1 MG tablet TAKE 1 TABLET (1 MG TOTAL) BY MOUTH EVERY OTHER DAY 45 tablet 3 5 Active Active Problems Problem Noted Date Diagnosed Date Oligoovulatory dysfunctional uterine bleeding Atrial fibrillation 03/26/2022 Swollen abdomen 02/02/2022 Obstructive sleep apnea 01/29/2022 Overview (04/29/2022): [facility] diagnostic polysomnogram 01/13/2022. Weight 166; BMI 28.AHI 19; REM AHI 31. 2 central apneas, 5 obstructive apneas, 129 hypopneas. Average oxygen saturation 90% and oxygen robinson 77%. PLM's 44. Obstructive sleep apnea: Moderate overall and severe in rem with mostly hypopneas and nocturnal hypoxemia with PLMD based on 2021 diagnostic polysomnogram. Appears ordering provider was Dr. Sullivan who manages [facility]. Memory loss 12/25/2021 Overview (04/29/2022): Neuropsych 12/20 Mild cog impairment only Hypercholesterolemia 02/18/2021 Overview (10/28/2021): Hypercholesterolemia Hypertension 04/29/2020 Neuropathy 11/24/2019 Osteoporosis 11/24/2019 Hyperkalemia 06/17/2017 Overview (10/28/2021): 06/14- sent to ER, level was 6.9 Microalbuminuria 01/12/2006 Benign essential hypertension 09/07/2005 Chronic kidney disease stage 3 08/12/2004 Resolved Problems Problem Noted Date Diagnosed Date Resolved Date Ascending aorta dilatation 02/18/2021 1 01/19/2021 Overview (10/28/2021): Ascending aorta dilatation Patient post percutaneous tr ansluminal coronary angioplasty 02/18/2021 11/18/2021 Overview (10/28/2021): Post percutaneous transluminal coronary angioplasty Anemia 06/30/2017 11/18/2021 Coronary arteriosclerosis 08/05/2016 Overview (10/28/2021): hosp 07/14 chest pain. . mibi abnormal. 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 Gastroesophageal reflux disease 11/06/2012 11/18/2021 Overview (10/28/2021): Barium swallow 11/09 Patient encounter status 10/24/2008 Overview (10/28/2021): Colonoscopy neg 02/01--10yrs 03/14 neg. No routine repeat needed Shoulder pain 07/23/2008 11/18/2021 Overview (10/28/2021): right Murmur 03/29/2008 11/18/2021 Overview (10/28/2021): Echo 07/05--mild to mod AI, Stable 01/08 07/14 mild AI. Osteopenia 11/11/2007 11/18/2021 Overview (10/28/2021): Stable by bone density 11/05--progression borderline osteoporosis 01/08--overall osteopenia (osteoporosis L4 and troch) 04/10 osteopenia hip and back 04/12 Osteopenia back and hip 07/16 normal back, osteopenia hip Chest pain 08/02/2007 11/18/2021 Overview (10/28/2021): 07/05--Adeno Mibi neg. EF 55% Gout 11/08/2006 11/18/2021 Polyneuropathy due to diabetes mellitus 01/12/2006 11/18/2021 Hypothyroidism 09/07/2005 11/18/2021 Encounters Date Type Department Care Team Description 12/13/2024 Refill [facility] [address] [place] [id number] Joel Colvin MD 11/04/2024 Refill [facility] [address] [place] [address] Joel Colvin MD from Last 3 Months Immunizations Name Administration Dates Next Due H1N1 Inj 12/02/2009 H1N1 Inj Preservative Free 12/02/2009 Influenza Split High Dose Pr eservative Free IM 11/04/2021,08/26/2018,08/24/2017,09/01,08/26/2015 Influenza, Quadrivalent, Wit h Preservative 09/01/2021,09/05/2019,08/29/2018,08/31 Influenza, Unspecified 10/21/2020,2018,09/05/2019,08/26,08/24/2017,09/01/2016,09/29/2015 ,08/26/2015,10/16/2014,08/29/2014,09/30,08/29/2013,10/06/2012, 1,09/01/2010,08/29/2009,09/11/2008,,11/01/2006,09/07/2005 Moderna SARS-COV-2 01/06/2022, 2,02/04/2021,01/07 Pneumococcal Conjugate 13-Valent 02/21/2016 Pneumococcal Polysaccharide 08/24/2017, 7,08/29/2001 Tdap 02/22/2018,10/24/2008 Zoster 2010 Family History Medical History Relation Comments Cancer Brother Cancer Daughter Cancer Mother Relation Status Comments Brother Daughter Alive Mother Social History Tobacco Use Types Packs/Day Years Used Date Smoking Tobacco: Never Smokeless Tobacco: Never Tobacco Cessation:Counseling Given: No Alcohol Use Standard Drinks/Week Comments Never 0 (1 standard drink = 0.6 oz pur e alcohol) Comments Unknown Sex and Gender Information Value Date Recorded Sex Assigned at Not on file Legal Sex Female 4:49 PM EST Gender Identity Not on file Sexual Orientation Not on file Last Filed Vital Signs Vital Sign Reading Time Taken Comments Blood Pressure 174/79 04/29/2022 3:33 PM EDT Pulse 75 04/29/2022 3:33 PM EDT Temperature - - Respiratory Rate - - Oxygen Saturation - - Inhaled Oxygen Concentration - - Weight 69.2 kg (152 lb 9.6 oz) 04/29/2022 3:33 P M EDT Height - - Body Mass Index - - Plan of Treatment Health Maintenance Due Date Last Done Comments Diabetes: Ophthalmology Exam 01/01/2025 Diabetes: Pedal Pulse Checked 01/01/2025 Diabetes: Sensory Foot Exam 01/01/2025 Diabetes: Visual Foot Exam 01/01/2025 Diabetes: Hemoglobin A1C 02/09/2025 11/11/2024 Pneumococcal Vaccine: 65+ Years Completed 08/24/2017, 02/21/2016, 11/08/2007, Additional history exists Influenza Vaccine Completed 10/31/2024, , 11/04/2021, Additional history exists Hepatitis B Vaccine Aged Out No longe r eligible based on patient's age to complete this topic Insurance MEDICARE [facility] MEDICARE Care Teams Health Sciences Department Chair Relationship Specialty Start Date End Date Jacques Cline MD PCP - General Nephrology 04/29/22
--- OUTSIDE RECORDS SUMMARY | 2025-01-19 08:43 | XMS_ITS | Encounter Summary ---
Author Organization [facility] [place] [address] Care Team Providers Care Bottom Pounder [employer] Name Role Phone Anil Bettencourt MD Primary Care Provider [phone] Encounter Details Date Type Department Care Team (Late st Contact Info) Description 11/20/2024 Lab Requisition [facility] - Main Lab [address] [facility] [place] [address] Social History Tobacco Use Types Packs/Day Years Used Date Smoking Tobacco: Never Smokeless Tobacco: Never Alcohol Use Standard Drinks/Week Comments Never 0 (1 standard drink = 0.6 oz pur e alcohol) Housing Instability Answer Date Recorde d Are you worried that in the next 2 months you may not have stable housing? No 10/30/2024 Food Access & Nutrition Answer Date Rec orded Do you have access to a vari ety of food including fruits and vegetables? Yes 10/30/2024 Access to Healthcare Answer Date Record ed Within the last 3 months, bob w many times did you visit the emergency department for your medical care? 0 10/30/2024 Health Literacy Answer Date Recorded How often do you need to hav e someone help you when you read instructions, pamphlets, or other written material from your doctor or pharmacy? Often 10/30/2024 Caregiver: How often do you need to have someone help you when you read instructions, pamphlets, or other written material from your doctor or pharmacy? Not on file 10/30/2024 Financial Risk Answer Date Recorded How hard is it for you to pa y for the very basics like food, housing, medical care, and air conditioning / heating? Not very hard 10/30/2024 Transportation Answer Date Recorded Has the lack of transportati on kept you from meetings, work, or from getting things needed for daily living? No Has the lack of transportati on kept you from medical appointments or from getting medications? No 10/30/2024 Social Isolation Answer Date Recorded How often do you feel lonely or isolated from th ose around you? Rarely 10/30/2024 Food Risk Answer Date Recorded Within the past 12 months we worried whether our food would run out before we got money to buy more. Never true 10/30/2024 Within the past 12 months th e food we bought just didn't last and we didn't have money to get more. Never true 10/30/2024 Dependent Care Answer Date Recorded Do you need help finding or paying for care for your loved ones. For example, child development instructor or elderly care for an older adult? No 10/30/2024 Education Answer Date Recorded Do you think completing more education or training, like finishing a GED, going to college, or learning a trade, would be helpful for you? N/A 10/30/2024 Employment and Income Answer Date Recor ded During the last four weeks, have you been actively looking for work? No 10/30/2024 Living Situation Answer Date Recorded What is your living situation? 1 12/31/2023 Comments No Sex and Gender Information Value Date Recorded Sex Assigned at Female 11/26/2024 10:53 PM EST Legal Sex Female 3:35 PM EST Gender Identity Female 11/26/2024 10:53 PM EST Sexual Orientation Not on file documented as of this encounter Plan of Treatment Upcoming Encounters Date Type Department Care Team (Late st Contact Info) Description 01/29/2025 10:30 AM EST Office Visit Adult [address] [address] Katharine Wadsworth MD [address] [place] [address] 03/27/2025 1:45 PM EDT Office Visit Nephrology - [place] [address] [place] [address] Joel Colvin MD [address] [place] [address] documented as of this encounter Visit Diagnoses Not on filedocumented in this encounter Additional Health Concerns Infection Onset Date Last Indicated Resolved Time Respiratory Rule-Out 11/26/2024 11/26/2024 024 6:03 PM EST Gastrointestinal Rule-Out 11/30/2024 11/30/2024 7:06 PM EST Assessment Noted Time PHQ-9 Depression Total Score: 0 10/30/20 24 10:57 PM EST documented as of this encounter Care Teams [employer] Relationship Specialty Start Date End Date Anil Bettencourt MD [address] [place] [address] PCP - General 08/02/01 documented as of this encounter
--- OUTSIDE RECORDS SUMMARY | 2025-01-19 08:43 | XMS_ITS | Encounter Summary ---
Author Organization [facility] Address [address] [place] [address] Care Team Providers Care Business Advisor Name Role Phone Anil Bettencourt MD Primary Care Provider [phone] Encounter Details Date Type Department Care Team (Latest Contact Info) Description 01/06/2025 Lab Requisition [facility] - Main Lab [address] [place] [address] Tyree Amador MD [address] [place] [phone] Type 2 diabetes mellitus with hyperglycemia (CMS/HCC); Chronic kidney disease, unspecified Social History Tobacco Use Types Packs/Day Years [...] Record ed Within the last 3 months, ho w many times did you visit the [...] for your loved ones. For example, child care education coordinator or elderly care for an older adult? [...] 01/29/2025 10:30 AM EST Office Visit Adult Medicine - [place] [address] [place] [address] Katharine Wadsworth MD [address] [place] [address] 03/27/2025 1:45 PM EDT [facility] [address] [place] [address] Joel Colvin MD [address] [place] [address] documented as of this encounter Procedures Procedure Name Priority Date/Time Associated Diagnosis Comments COMPLETE BLOOD COUNT Routine 01/08/2025 6:09 AM EST Type 2 diabetes mellitus with hyperglycemia ([facility]CC) Chronic kidney disease, unspecified BASIC METABOLIC PANEL Routine 01/08/2025 6:08 AM EST Type 2 diabetes mellitus with hyperglycemia ([facility]/HCC) Chronic kidney disease, unspecified documented in this encounter Results * (ABNORMAL) Complete blood count (01/08/2025 6:09 AM EST) WBC 6.4 4.8 - 10.8 K/mcL LAB HEMETOLOGY METHOD 01/08/2025 2:34 PM [facility] RBC 3.00(L) 3.80 - 4.80 M/mcL LAB HEMETOLOGY METHOD 01/08/2025 2:34 PM [facility] Hemoglobin 8.8(L) 11.5 - 16.0 g/dL LAB HEMETOLOGY METHOD 01/08/2025 2:34 PM [facility] Hematocrit 27.9(L) 35.0 - 47.0 % LAB HEMETOLOGY METHOD 01/08/2025 2:34 PM EST [facility] MCV 94.6 79.0 - 98.0 FL LAB HEMETOLOGY METHOD 01/08/2025 2:34 PM EST [facility] MCH 29.8 27.0 - 32.0 pcg LAB HEMETOLOGY METHOD 01/08/2025 2:34 PM [facility] MCHC 31.5(L) 32.0 - 37.0 g/dL LAB HEMETOLOGY METHOD 01/08/2025 2:34 PM EST [facility] RDW 14.0 11.0 - 15.0 % LAB HEMETOLOGY METHOD 01/08/2025 2:34 PM [facility] Platelets 253 130 - 400 K/mcL LAB HEMETOLOGY METHOD 01/08/2025 2:34 PM [facility] MPV 11.0 7.0 - 11.0 FL LAB HEMETOLOGY METHOD 01/08/2025 2:34 PM EST [facility] NRBC 0.0 <1.0 % LAB HEMETOLOGY METHOD 01/08/2025 2:34 PM [facility] NRBC Absolute 0.00 <0.10 K/mcL LAB HEMETOLOGY METHOD 01/08/2025 2:34 PM [facility] Blood Venous blood specimen / Unknown Venipuncture / Unknown 01/08/2025 6:09 AM EST 01/08/2025 1:30 PM EST us Tyree Amador MD LAB BLOOD ORDERABLES Final Resu lt [facility] [address] [place] [address], * (ABNORMAL) Basic metabolic panel (01/08/2025 6:08 AM EST) Pathologist [facility] Sodium 142 133 - 145 mmol/L LAB CHEMISTRY METHOD 01/08/2025 4:38 PM [facility] Potassium 3.7 3.5 - 5.5 mmol/L LAB CHEMISTRY METHOD 01/08/2025 4:38 PM [facility] Chloride 108 96 - 110 mmol/L LAB CHEMISTRY METHOD 01/08/2025 4:38 PM [facility] CO2 23 21 - 32 mmol/L LAB CHEMISTRY METHOD 01/08/2025 4:38 PM [facility] Anion Gap 11 3 - 11 LAB CHEMISTRY METHOD 01/08/2025 4:38 PM [facility] Glucose 93 70 - 100 mg/dL LAB CHEMISTRY METHOD 01/08/2025 4:38 PM [facility] BUN 41(H) 5 - 25 mg/dL LAB CHEMISTRY METHOD 01/08/2025 4:38 PM [facility] Creatinine 2.58(H) 0.50 - 1.10 mg/dL LAB CHEMISTRY METHOD 01/08/2025 4:38 PM [facility] eGFR 18(L) >=60 mL/min/1. 73m2 LAB CHEMISTRY METHOD 01/08/2025 4:38 PM [facility] Comment:Calculation based on the??Chronic Kidney Disease Epidemiology Collaboration (CKD-EPI) equation refit??without adjustment for race. BUN/Creatinine Ratio 15.9 LAB CHEMISTRY METHOD 01/08/2025 4:38 PM [facility] Calcium 8.6 8.5 - 10.5 mg/dL LAB CHEMISTRY METHOD 01/08/2025 4:38 PM [facility] Blood Venous blood specimen / Unknown Venipuncture / Unknown 01/08/2025 6:08 AM EST 01/08/2025 1:32 PM EST us Tyree Amador MD LAB BLOOD ORDERABLES Final Resu lt [facility] [address] [place] [address], documented in this encounter Visit Diagnoses Diagnosis Type 2 diabetes mellitus with hyperglycemia (CMS/HCC) Chronic kidney disease, unspecified documented in this encounter Additional Health Concerns Assessment Noted Time PHQ-9 Depression Total Score: 0 10/30/20 24 10:57 PM EST documented as of this encounter Care Teams Business Advisor Relationship Specialty Start Date End Date Anil Bettencourt MD [address] [place] [address] PCP - General 08/02/01 documented as of this encounter
--- OUTSIDE RECORDS SUMMARY | 2025-01-19 08:43 | XMS_ITS | Encounter Summary ---
Author Organization [facility] [place] [address] Care Team Providers Care Animal Physiology Teacher Name Role Phone Anil Bettencourt MD Primary Care Provider [phone] Encounter Details Date Type Department Care Team (Late st Contact Info) Description 01/04/2025 Lab Requisition [facility] - Main Lab [address] [place] [address] Tyree Amador MD [address] [place] [phone] Chronic kidney disease, unspecified Social History Tobacco [...] for your loved ones. For example, child life assistant or elderly care for an older adult? [...] AM EST Office Visit Adult Medicine - [place] [address] [place] [phone] Katharine Wadsworth MD [address] [place] [address] 03/27/2025 1:45 PM EDT Office Visit Nephrology - [facility] [address] [place] [phone] Joel Colvin MD [address] [place] [address] documented as of this encounter Procedures Procedure Name Priority Date/Time Associated Diagnosis Comments COMPLETE BLOOD COUNT Routine 01/04/2025 5:38 AM EST Chronic kidney disease, unspecified COMPREHENSIVE METABOLIC PANEL Routine 01/04/2025 5:38 AM EST Chronic kidney disease, unspecified documented in this encounter Results * (ABNORMAL) Comprehensive metabolic panel (01/04/2025 5:38 AM EST) Sodium 141 133 - 145 mmol/L LAB CHEMISTRY METHOD 01/04/2025 12:08 PM [facility] Potassium 3.7 3.5 - 5.5 mmol/L LAB CHEMISTRY METHOD 01/04/2025 12:08 PM [facility] Chloride 104 96 - 110 mmol/L LAB CHEMISTRY METHOD 01/04/2025 12:08 PM [facility] CO2 26 21 - 32 mmol/L LAB CHEMISTRY METHOD 01/04/2025 12:08 PM [facility] Anion Gap 11 3 - 11 LAB CHEMISTRY METHOD 01/04/2025 12:08 PM [facility] Glucose 70 70 - 100 mg/dL LAB CHEMISTRY METHOD 01/04/2025 12:08 PM [facility] BUN 45(H) 5 - 25 mg/dL LAB CHEMISTRY METHOD 01/04/2025 12:08 PM [facility] Creatinine 3.05(H) 0.50 - 1.10 mg/dL LAB CHEMISTRY METHOD 01/04/2025 12:08 PM [facility] eGFR 15(L) >=60 mL/min/1. 73m2 LAB CHEMISTRY METHOD 01/04/2025 12:08 PM [facility] Comment:Calculation based on the??Chronic Kidney Disease Epidemiology Collaboration (CKD-EPI) equation refit??without adjustment for race. BUN/Creatinine Ratio 14.8 LAB CHEMISTRY METHOD 01/04/2025 12:08 PM [facility] Calcium 8.2(L) 8.5 - 10.5 mg/dL LAB CHEMISTRY METHOD 01/04/2025 12:08 PM [facility] AST (SGOT) 12 10 - 42 unit/L LAB CHEMISTRY METHOD 01/04/2025 12:08 PM [facility] ALT (SGPT) 14 10 - 60 unit/L LAB CHEMISTRY METHOD 01/04/2025 12:08 PM [facility] Alkaline Phosphatase 115 42 - 121 unit/L LAB CHEMISTRY METHOD 01/04/2025 12:08 PM [facility] Total Protein 6.2 6.0 - 8.0 g/dL LAB CHEMISTRY METHOD 01/04/2025 12:08 PM [facility] Albumin 3.2 3.2 - 5.0 g/dL LAB CHEMISTRY METHOD 01/04/2025 12:08 PM [facility] Total Bilirubin 0.6 0.0 - 1.4 mg/dL LAB CHEMISTRY METHOD 01/04/2025 12:08 PM [facility] Blood Venous blood specimen / Unknown Venipuncture / Unknown 01/04/2025 5:38 AM EST 01/04/2025 11:15 AM EST us Tyree Amador MD LAB BLOOD ORDERABLES Final Resu lt [facility] [address] [place] [address], [place] [phone] * (ABNORMAL) Complete blood count (01/04/2025 5:38 AM EST) WBC 5.6 4.8 - 10.8 K/mcL LAB HEMETOLOGY METHOD 01/04/2025 11:43 AM [facility] RBC 3.00(L) 3.80 - 4.80 M/mcL LAB HEMETOLOGY METHOD 01/04/2025 11:43 AM [facility] Hemoglobin 9.0(L) 11.5 - 16.0 g/dL LAB HEMETOLOGY METHOD 01/04/2025 11:43 AM [facility] Hematocrit 27.6(L) 35.0 - 47.0 % LAB HEMETOLOGY METHOD 01/04/2025 11:43 AM [facility] MCV 92.0 79.0 - 98.0 FL LAB HEMETOLOGY METHOD 01/04/2025 11:43 AM [facility] MCH 30.0 27.0 - 32.0 pcg LAB HEMETOLOGY METHOD 01/04/2025 11:43 AM [facility] MCHC 32.6 32.0 - 37.0 g/dL LAB HEMETOLOGY METHOD 01/04/2025 11:43 AM [facility] RDW 13.8 11.0 - 15.0 % LAB HEMETOLOGY METHOD 01/04/2025 11:43 AM [facility] Platelets 201 130 - 400 K/mcL LAB HEMETOLOGY METHOD 01/04/2025 11:43 AM [facility] MPV 10.3 7.0 - 11.0 FL LAB HEMETOLOGY METHOD 01/04/2025 11:43 AM EST [facility] NRBC 0.0 <1.0 % LAB HEMETOLOGY METHOD 01/04/2025 11:43 AM EST [facility] NRBC Absolute 0.00 <0.10 K/mcL LAB HEMETOLOGY METHOD 01/04/2025 11:43 AM EST [facility] Blood Venous blood specimen / Unknown Venipuncture / Unknown 01/04/2025 5:38 AM EST 01/04/2025 11:15 AM EST us Tyree Amador MD LAB BLOOD ORDERABLES Final Resu lt [facility] [address] [place] [address], [place] [phone] documented in this encounter Visit Diagnoses Diagnosis Chronic kidney disease, unspecified documented in this encounter Additional Health Concerns Assessment Noted Time PHQ-9 Depression Total Score: 0 10/30/20 24 10:57 PM EST documented as of this encounter Care Teams Animal Physiology Teacher Relationship Specialty Start Date End Date Anil Bettencourt MD [address] [place] [address] PCP - General 08/02/01 documented as of this encounter
--- OUTSIDE RECORDS SUMMARY | 2025-01-19 08:43 | XMS_ITS | Encounter Summary ---
Author Organization [facility] Address [address] [place] [address] Phone Care Team Providers Care Manager Product Support Name Role Phone Jacques Cline MD Primary Care Provider [phone] Reason for Visit * Reason Comments Med Refill Encounter Details Date Type Department Care Team ([facility] st Contact Info) Description 11/04/2024 Refill [facility] [address] [place] [address] Joel Colvin MD [address] [facility] [address] [place] [phone] Social History Tobacco Use Types Packs/Day Years Used Date Smoking Tobacco: Never Smokeless Tobacco: Never Alcohol Use Standard Drinks/Week Comments Never 0 (1 standard drink = 0.6 oz pur e alcohol) Comments Unknown Sex and Gender Information Value Date Recorded Sex Assigned at Not on file Legal Sex Female 4:49 PM EST Gender Identity Not on file Sexual Orientation Not on file documented as of this encounter Plan of Treatment Not on file documented as of this encounter Visit Diagnoses Not on filedocumented in this encounter Care Teams Manager Product Support Relationship Specialty Start Date End Date Jacques Cline MD PCP - General Nephrology 04/29/22 documented as of this encounter
--- OUTSIDE RECORDS SUMMARY | 2025-01-19 08:43 | XMS_ITS | Encounter Summary ---
Author Organization [facility] Address [address] [place] [address] Care Team Providers Care Fire Chief'S Aide Name Role Phone Anil Bettencourt MD Primary Care Provider [phone] Encounter Details Date Type Department Care Team ([facility] Contact Info) Description 11/20/2024 Lab Requisition [facility] - Main Lab [address] [place] [address] Horace Solomon MD [address] [place] [address] Encounter for other general examination Social History Tobacco Use Types Packs/Day Years [...] ed Within the last 3 months, bob lao many times did you visit the emergency [...] care for your loved ones. For example, children's book author or elderly care for an older adult? [...] AM EST Office Visit Adult Medicine - [place] [address] [place] [phone] Katharine Wadsworth MD [address] [place] [address] 03/27/2025 1:45 PM EDT [facility] [address] [place] [phone] Joel Colvin MD [address] [place] [address] documented as of this encounter Procedures Procedure Name Priority Date/Time Associated Diagnosis Comments COMPLETE BLOOD COUNT Routine 11/20/2024 6:45 AM EST Encounter for other general examination BASIC METABOLIC PANEL Routine 11/20/2024 6:45 AM EST Encounter for other general examination documented in this encounter Results * (ABNORMAL) Complete blood count (11/20/2024 6:45 AM EST) WBC 6.1 4.8 - 10.8 K/mcL LAB HEMETOLOGY METHOD 11/20/2024 11:01 AM [facility] RBC 2.80(L) 3.80 - 4.80 M/mcL LAB HEMETOLOGY METHOD 11/20/2024 11:01 AM [facility] Hemoglobin 8.4(L) 11.5 - 16.0 g/dL LAB HEMETOLOGY METHOD 11/20/2024 11:01 AM [facility] Hematocrit 25.4(L) 35.0 - 47.0 % LAB HEMETOLOGY METHOD 11/20/2024 11:01 AM [facility] MCV 91.4 79.0 - 98.0 FL LAB HEMETOLOGY METHOD 11/20/2024 11:01 AM [facility] MCH 30.2 27.0 - 32.0 pcg LAB HEMETOLOGY METHOD 11/20/2024 11:01 AM EST [facility] MCHC 33.1 32.0 - 37.0 g/dL LAB HEMETOLOGY METHOD 11/20/2024 11:01 AM [facility] RDW 13.2 11.0 - 15.0 % LAB HEMETOLOGY METHOD 11/20/2024 11:01 AM [facility] Platelets 335 130 - 400 K/mcL LAB HEMETOLOGY METHOD 11/20/2024 11:01 AM [facility] MPV 10.3 7.0 - 11.0 FL LAB HEMETOLOGY METHOD 11/20/2024 11:01 AM [facility] NRBC 0.0 <1.0 % LAB HEMETOLOGY METHOD 11/20/2024 11:01 AM [facility] NRBC Absolute 0.00 <0.10 K/mcL LAB HEMETOLOGY METHOD 11/20/2024 11:01 AM [facility] Blood Venous blood specimen / Unknown Venipuncture / Unknown 11/20/2024 6:45 AM EST 11/20/2024 8:25 AM EST us Horace Solomon MD LAB BLOOD ORDERABLES Final Res ult [facility] [address] [place] [address], * (ABNORMAL) Basic metabolic panel (11/20/2024 6:45 AM EST) Sodium 137 133 - 145 mmol/L LAB CHEMISTRY METHOD 11/20/2024 11:21 AM [facility] Potassium 3.7 3.5 - 5.5 mmol/L LAB CHEMISTRY METHOD 11/20/2024 11:21 AM EST [facility] Chloride 101 96 - 110 mmol/L LAB CHEMISTRY METHOD 11/20/2024 11:21 AM [facility] CO2 29 21 - 32 mmol/L LAB CHEMISTRY METHOD 11/20/2024 11:21 AM [facility] Anion Gap 7 3 - 11 LAB CHEMISTRY METHOD 11/20/2024 11:21 AM [facility] Glucose 110(H) 70 - 100 mg/dL LAB CHEMISTRY METHOD 11/20/2024 11:21 AM [facility] BUN 68(H) 5 - 25 mg/dL LAB CHEMISTRY METHOD 11/20/2024 11:21 AM [facility] Creatinine 3.68(H) 0.50 - 1.10 mg/dL LAB CHEMISTRY METHOD 11/20/2024 11:21 AM [facility] eGFR 12(L) >=60 mL/min/1. 73m2 LAB CHEMISTRY METHOD 11/20/2024 11:21 AM EST [facility] Comment:Calculation based on the??Chronic Kidney Disease Epidemiology Collaboration (CKD-EPI) equation refit??without adjustment for race. BUN/Creatinine Ratio 18.5 LAB CHEMISTRY METHOD 11/20/2024 11:21 AM [facility] Calcium 8.6 8.5 - 10.5 mg/dL LAB CHEMISTRY METHOD 11/20/2024 11:21 AM [facility] Blood Venous blood specimen / Unknown Venipuncture / Unknown 11/20/2024 6:45 AM EST 11/20/2024 8:25 AM EST us Horace Solomon MD LAB BLOOD ORDERABLES Final Res ult [facility] [address] [place] [address], documented in this encounter Visit Diagnoses Diagnosis Encounter for other general examination documented in this encounter Additional Health Concerns Infection Onset Date Last Indicated Resolved Time Respiratory Rule-Out 11/26/2024 11/26/2024 024 6:03 PM EST Gastrointestinal Rule-Out 11/30/2024 11/30/2024 7:06 PM EST Assessment Noted Time PHQ-9 Depression Total Score: 0 10/30/20 24 10:57 PM EST documented as of this encounter Care Teams Fire Chief'S Aide Relationship Specialty Start Date End Date Anil Bettencourt MD [address] [place] [id number] PCP - General 08/02/01 documented as of this encounter
--- OUTSIDE RECORDS SUMMARY | 2025-01-19 08:43 | XMS_ITS | Encounter Summary ---
Author Organization [place] [address] Care Team Providers Care Inspector Fabric Name Role Phone Anil Bettencourt MD Primary Care Provider [phone] Reason for Referral * Cardiac Stress Testing (Routine) - Closed Specialty Diagnoses / Procedures Referred By Makenzie t Referred To Contact Cardiology Diagnoses Bradycardia Procedures Cardiac holter monitor (<= 48 hours) MI ECG EXTERNAL UP TO 48 HOURS RECORDING MI ECG EXTERNAL < 48 HOURS CONTINUOUS RECORDING/STORAGE R&I BY A PHYS/QHP MI EXTERNAL ECG UP TO 48 HRS INCL RECORDING SCANNING ANLYS W REPORT Albert Webber NP [address] [place] [address] [place] [address] Phone: tel: fax: [facility] Referral ID Status Reason Start Date Expiration Date Visits Re quested Visits Authorized [id number] Closed 12/12/2024 12/12/2025 1 1 Reason for Visit * Reason Onset Date Comments low heart rate 12/12/2024 Fatigue 12/12/2024 Encounter Details Date Type Department Care Team (Late st Contact Info) Description 12/12/2024 Telephone [facility] Cardiology [facility] [address] [place] [address] Alonzo Alvarez MD [address] [facility] [place] [address] low heart rate ; Fatigue Social History Tobacco Use Types Packs/Day Years [...] for your loved ones. For example, child and adolescent therapist or elderly care for an older adult? [...] on file documented as of this encounter Progress Notes * Cortney Tinoco RN - 12/12/2024 4:18 PM EST I called Tara, the visiting nurse, and informed her of the below recommendations from [facility]. I also spoke to pt's daughter, Jose. She is aware pt should hold Metoprolol for now and to not discardthe med. She is also agreeable with 24 hr holter monitoring. Diagnostic Scheduling, please assist with arranging 24 hr holter monitor placement. Please contact pt's daughter, Jose when scheduling. Thank you. * Albert Webber NP - 12/12/2024 3:47 PM EST Have her hold the Metoprolol and she how she does. Don't throw it out, just put it to the side. 24hr holter monitor please as well. * Cortney Tinoco RN - 12/12/2024 3:04 PM EST I spoke to Tara, pt's visiting nurse. For the last 2 weeks, pt has been very fatigued and sleeping most of the day. She gets up to eat and go to the bathroom, then goes right back to bed. Per Tara, she has not been reporting dizziness, lightheadedness, presyncope, palpitations, shortness of breath, or recent illness. PT saw pt 30 min before Tara and pt's BP at that time was 130/72, HR 45bpm. She rechecked pt's vitals during her visit- BP 130/70, HR 50 bpm (apical). On 12/04/24, pt's Metoprolol was decreased to 50 mg daily. Pt has a large jug of water next to her bedside and was drinking out of it when Tara was there. She noted it was fpc full, so she believes pt is trying to stay hydrated. Would you like pt to further decrease Metoprolol dose? * Peggy Ramsay - 12/12/2024 2:34 PM EST Tara a Visiting nurse calling from [facility] , she states patient has been really tired lately, with low heart rate. Its been ranging between 45-50. She's reporting this has been happening for thelast 2 weeks, her medication was adjusted, but she has not improved. documented in this encounter Plan of Treatment Upcoming Encounters Date Type Department Care Team (Late st Contact Info) Description 01/29/2025 10:30 AM EST Office Visit Adult Medicine - [place] [address] [place] [address] Katharine Wadsworth MD [address] [place] [address] 03/27/2025 1:45 PM EDT Office Visit Nephrology - [facility] [address] [place] [phone] Joel Colvin MD [address] [place] [address] documented as of this encounter Results * CARDIAC HOLTER MONITOR (REPORT GENERATED IN HOUSE) (12/13/2024 2:32 PM EST) Anatomical Region Laterality Modality Cardiac Diagnost ic Narrative 12/27/2024 3:00 PM EST [facility] DI[facility]ST[facility] DEPARTMENT [address] [facility], [address], [place] [address] TEL: FAX: Type of Test: 24 Hour Holter Monitor Date of Test: 12/13/2024 Ordering Provider: Albert Webber NP Reason for Test: Bradycardia PVCA Dam Operator Findings: ?? 1: Normal Sinus Rhythm with periods of Sinus Bradycardia. An episode of Second Degree AV Block Type I noted. 2: Heart rate range was 45-120 BPM with an average of 67 BPM. Total time in Sinus Bradycardia: 9 hrs 32 mins. 3: Frequent PACs. Occasional aberrant beats and atrial pairs. Rare atrial trigeminy and two 3-beat atrial runs with rates up to 132 BPM. 4: Occasional PVCs. Rare ventricular couplets and triplets. 5: No significant pause noted, longest R-R was 1.9 seconds at 1:44 PM. 6: Diary returned with no symptoms noted. Impression: ?? 1: Normal Sinus Rhythm with periods of Sinus Bradycardia. An episode of Second Degree AV Block Type I noted. 2: Heart rate range was 45-120 BPM with an average of 67 BPM. Total time in Sinus Bradycardia: 9 hrs 32 mins. 3: Frequent PACs. Occasional aberrant beats and atrial pairs. Rare atrial trigeminy and two 3-beat atrial runs with rates up to 132 BPM. 4: Occasional PVCs. Rare ventricular couplets and triplets. 5: No significant pause noted, longest R-R was 1.9 seconds at 1:44 PM. 6: Diary returned with no symptoms noted. 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
--- OUTSIDE RECORDS SUMMARY | 2025-01-19 08:43 | XMS_ITS | Encounter Summary ---
Author Organization [facility] Address [address] [place] [address] Care Team Providers Care Animation Producer Name Role Phone Anil Bettencourt MD Primary Care Provider Encounter Details Date Type Department Care Team ([facility] st Contact Info) Description 11/16/2024 Lab Requisition [facility] - Main Lab [address] [place] [address] Horace Solomon MD [address] [place] [address] Encounter for other general examination Social History [...] care for your loved ones. For example, childrens club attendant or elderly care for an older adult? [...] AM EST Office Visit Adult Medicine - [place] [address] [place] [address] Katharine Wadsworth MD [address] [place] [address] 03/27/2025 1:45 PM EDT Office Visit Nephrology - [place] [address] [place] [phone] Joel Colvin MD [address] [place] [address] Scheduled Orders Name Type Priority Associated Diagnoses Orde r Schedule Iron and TIBC Lab Routine Encounter for other general examination Ordered: 11/16/2024 Ferritin Lab Routine Encounter for other general examination Ordered: 11/16/2024 documented as of this encounter Procedures Procedure Name Priority Date/Time Associated Diagnosis Comments IRON AND TIBC Routine 11/16/2024 8:06 AM EST Encounter for other general examination COMPLETE BLOOD COUNT Routine 11/16/2024 8:06 AM EST Encounter for other general examination FERRITIN Routine 11/16/2024 8:06 AM EST Encounter for other general examination COMPREHENSIVE METABOLIC PANEL Routine 11/16/2024 8:06 AM EST Encounter for other general examination documented in this encounter Results * (ABNORMAL) Ferritin (11/16/2024 8:06 AM EST) Ferritin 290(H) 8 - 252 ng/mL LAB CHEMISTRY METHOD 11/16/2024 5:36 PM EST [facility] Blood Venous blood specimen / Unknown Venipuncture / Unknown 11/16/2024 8:06 AM EST 11/16/2024 9:12 AM EST Horace Solomon MD LAB BLOOD ORDERABLES Final Res ult Performing Organization Address City/[facility]/ZIP Co de Phone Number [facility] [address] [place] [address], * (ABNORMAL) Iron and TIBC (11/16/2024 8:06 AM EST) Iron 32(L) 40 - 150 mcg/dL LAB CHEMISTRY METHOD 11/16/2024 5:36 PM EST [facility] TIBC 208(L) 250 - 450 mcg/dL LAB CHEMISTRY METHOD 11/16/2024 5:36 PM [facility] Iron Saturation 15 15 - 50 % LAB CHEMISTRY METHOD 11/16/2024 5:36 PM [facility] Blood Venous blood specimen / Unknown Venipuncture / Unknown 11/16/2024 8:06 AM EST 11/16/2024 9:12 AM EST Horace Solomon MD LAB BLOOD ORDERABLES Final Res ult Performing Organization Address [facility]/ZIP Co de Phone Number [facility] [address] [place] [address], * (ABNORMAL) Complete blood count (11/16/2024 8:06 AM EST) WBC 7.0 4.8 - 10.8 K/[facility] LAB HEMETOLOGY METHOD 11/16/2024 10:12 AM EST [facility] RBC 3.10(L) 3.80 - 4.80 /[facility] LAB HEMETOLOGY METHOD 11/16/2024 10:12 AM EST [facility] Hemoglobin 9.4(L) 11.5 - 16.0 g/dL LAB HEMETOLOGY METHOD 11/16/2024 10:12 AM [facility] Hematocrit 28.8(L) 35.0 - 47.0 % LAB HEMETOLOGY METHOD 11/16/2024 10:12 AM EST [facility] MCV 92.0 79.0 - 98.0 FL LAB HEMETOLOGY METHOD 11/16/2024 10:12 AM EST [facility] MCH 30.0 27.0 - 32.0 pcg LAB HEMETOLOGY METHOD 11/16/2024 10:12 AM EST [facility] MCHC 32.6 32.0 - 37.0 g/dL LAB HEMETOLOGY METHOD 11/16/2024 10:12 AM EST [facility] RDW 13.2 11.0 - 15.0 % LAB HEMETOLOGY METHOD 11/16/2024 10:12 AM EST [facility] Platelets 334 130 - 400 K/mcL LAB HEMETOLOGY METHOD 11/16/2024 10:12 AM [facility] MPV 10.6 7.0 - 11.0 FL LAB HEMETOLOGY METHOD 11/16/2024 10:12 AM EST [facility] NRBC 0.0 <1.0 % LAB HEMETOLOGY METHOD 11/16/2024 10:12 AM [facility] NRBC Absolute 0.00 <0.10 K/mcL LAB HEMETOLOGY METHOD 11/16/2024 10:12 AM [facility] Blood Venous blood specimen / Unknown Venipuncture / Unknown 11/16/2024 8:06 AM EST 11/16/2024 9:12 AM EST us Horace Solomon MD LAB BLOOD ORDERABLES Final Res ult [facility] [address] [place] [address], * (ABNORMAL) Comprehensive metabolic panel (11/16/2024 8:06 AM EST) Sodium 141 133 - 145 mmol/L LAB CHEMISTRY METHOD 11/16/2024 10:46 AM [facility] Potassium 4.1 3.5 - 5.5 mmol/L LAB CHEMISTRY METHOD 11/16/2024 10:46 AM [facility] Chloride 105 96 - 110 mmol/L LAB CHEMISTRY METHOD 11/16/2024 10:46 AM [facility] CO2 25 21 - 32 mmol/L LAB CHEMISTRY METHOD 11/16/2024 10:46 AM [facility] Anion Gap 11 3 - 11 LAB CHEMISTRY METHOD 11/16/2024 10:46 AM [facility] Glucose 153(H) 70 - 100 mg/dL LAB CHEMISTRY METHOD 11/16/2024 10:46 AM [facility] BUN 61(H) 5 - 25 mg/dL LAB CHEMISTRY METHOD 11/16/2024 10:46 AM [facility] Creatinine 3.25(H) 0.50 - 1.10 mg/dL LAB CHEMISTRY METHOD 11/16/2024 10:46 AM [facility] eGFR 14(L) >=60 mL/min/1. 73m2 LAB CHEMISTRY METHOD 11/16/2024 10:46 AM [facility] Comment:Calculation based on the??Chronic Kidney Disease Epidemiology Collaboration (CKD-EPI) equation refit??without adjustment for race. BUN/Creatinine Ratio 18.8 LAB CHEMISTRY METHOD 11/16/2024 10:46 AM [facility] Calcium 9.1 8.5 - 10.5 mg/dL LAB CHEMISTRY METHOD 11/16/2024 10:46 AM [facility] AST (SGOT) 10 10 - 42 unit/L LAB CHEMISTRY METHOD 11/16/2024 10:46 AM [facility] ALT (SGPT) 11 10 - 60 unit/L LAB CHEMISTRY METHOD 11/16/2024 10:46 AM [facility] Alkaline Phosphatase 150(H) 42 - 121 unit/L LAB CHEMISTRY METHOD 11/16/2024 10:46 AM EST [facility] Total Protein 6.6 6.0 - 8.0 g/dL LAB CHEMISTRY METHOD 11/16/2024 10:46 AM EST [facility] Albumin 3.0(L) 3.2 - 5.0 g/dL LAB CHEMISTRY METHOD 11/16/2024 10:46 AM [facility] Total Bilirubin 0.8 0.0 - 1.4 mg/dL LAB CHEMISTRY METHOD 11/16/2024 10:46 AM EST [facility] Blood Venous blood specimen / Unknown Venipuncture / Unknown 11/16/2024 8:06 AM EST 11/16/2024 9:12 AM EST us Horace Solomon MD LAB BLOOD ORDERABLES Final Res ult [facility] [address] [place] [address], documented in this encounter Visit Diagnoses Diagnosis Encounter for other general examination documented in this encounter Additional Health Concerns Infection Onset Date Last Indicated Resolved Time Respiratory Rule-Out 11/26/2024 11/26/2024 024 6:03 PM EST Gastrointestinal Rule-Out 11/30/2024 11/30/2024 7:06 PM EST Assessment Noted Time PHQ-9 Depression Total Score: 0 10/30/20 24 10:57 PM EST documented as of this encounter Care Teams Animation Producer Relationship Specialty Start Date End Date Anil Bettencourt MD [address] [place] [address] PCP - General 08/02/01 documented as of this encounter
--- OUTSIDE RECORDS SUMMARY | 2025-01-19 08:43 | XMS_ITS | Encounter Summary ---
Author Organization [facility] [place] [address] Care Team Providers Care Child Care Leader Name Role Phone Anil Bettencourt MD Primary Care Provider [phone] Encounter Details Date Type Department Care Team (Late st Contact Info) Description 01/04/2025 Lab Requisition [facility] - Main Lab [address] [facility] [facility] [address] [place] [address] Social History Tobacco Use Types [...] your loved ones. For example, child care sitter or elderly care for an older adult? [...] 01/29/2025 10:30 AM EST Office Visit Adult [address] [address] Katharine Wadsworth MD [address] [place] [address] 03/27/2025 1:45 PM EDT Office Visit Nephrology - [place] [address] [place] [phone] Joel Colvin MD [address] [place] [address] documented as of this encounter Visit Diagnoses Not on filedocumented in this encounter Additional Health Concerns Assessment Noted Time PHQ-9 Depression Total Score: 0 10/30/20 24 10:57 PM EST documented as of this encounter Care Teams Child Care Leader Relationship Specialty Start Date End Date Anil Bettencourt MD [address] [place] [address] PCP - General 08/02/01 documented as of this encounter
--- OUTSIDE RECORDS SUMMARY | 2025-01-19 08:43 | XMS_ITS | Encounter Summary ---
Author Organization [facility] Address [address] [place] [address] Care Team Providers Care Tank Truck Engine Mechanic Name Role Phone Anil Bettencourt MD Primary Care Provider [phone] Encounter Details Date Type Department Care Team ([facility] Contact Info) Description 11/17/2024 Lab Requisition [facility] - Main Lab [address] [place] [address] Horace Solomon MD [address] [place] [address] Encounter for other general examination Social History [...] for your loved ones. For example, child nutrition assistant or elderly care for an older [...] AM EST Office Visit Adult Medicine - [place] [address] [place] [phone] Katharine Wadsworth MD [address] [place] [address] 03/27/2025 1:45 PM EDT Office Visit Nephrology - [place] [address] [place] [phone] Joel Colvin MD [address] [place] [address] documented as of this encounter Procedures Procedure Name Priority Date/Time Associated Diagnosis Comments PHOSPHORUS Routine 11/17/2024 7:32 AM EST Encounter for other general examination documented in this encounter Results * Phosphorus (11/17/2024 7:32 AM EST) Phosphorus 4.5 2.5 - 4.5 mg/dL LAB CHEMISTRY METHOD 11/17/2024 12:13 PM EST [facility] Blood Venous blood specimen / Unknown Venipuncture / Unknown 11/17/2024 7:32 AM EST 11/17/2024 10:54 AM EST us Horace Solomon MD LAB BLOOD ORDERABLES Final Res ult [facility] [address] [place] [address], documented in this encounter Visit Diagnoses Diagnosis Encounter for other general examination documented in this encounter Additional Health Concerns Infection Onset Date Last Indicated Resolved Time Respiratory Rule-Out 11/26/2024 11/26/2024 024 6:03 PM EST Gastrointestinal Rule-Out 11/30/2024 11/30/2024 7:06 PM EST Assessment Noted Time PHQ-9 Depression Total Score: 0 10/30/20 10:57 PM EST documented as of this encounter Care Teams Tank Truck Engine Mechanic Relationship Specialty Start Date End Date Anil Bettencourt MD [address] [place] [address] PCP - General 08/02/01 documented as of this encounter
--- OUTSIDE RECORDS SUMMARY | 2025-01-19 08:43 | XMS_ITS | Encounter Summary ---
Author Organization [facility] Address [address] [place] [address] Care Team Providers Care Motion Picture Photographer Name Role Phone Anil Bettencourt MD Primary Care Provider [phone] Encounter Details Date Type Department Care Team ([facility] Contact Info) Description 11/18/2024 Lab Requisition [facility] - Main Lab [address] [place] [address] Horace Solomon MD [address] [place] [address] Encounter for other general examination Social History [...] care for your loved ones. For example, childhood teacher or elderly care for an older adult? [...] AM EST Office Visit Adult Medicine - [place] [address] [place] [phone] Katharine Wadsworth MD [address] [place] [address] 03/27/2025 1:45 PM EDT [facility] [address] [place] [phone] Joel Colvin MD [address] [place] [address] documented as of this encounter Procedures Procedure Name Priority Date/Time Associated Diagnosis Comments CBC WITH AUTO DIFFERENTIAL Routine 11/18/2024 6:02 AM EST Encounter for other general examination CBC AND DIFFERENTIAL Routine 11/18/2024 6:02 AM EST Encounter for other general examination MAGNESIUM Routine 11/18/2024 6:02 AM EST Encounter for other general examination FOLATE Routine 11/18/2024 6:02 AM EST Encounter for other general examination VITAMIN B12 Routine 11/18/2024 6:02 AM EST Encounter for other general examination BASIC METABOLIC PANEL Routine 11/18/2024 6:02 AM EST Encounter for other general examination documented in this encounter Results * (ABNORMAL) CBC auto differential (11/18/2024 6:02 AM EST) WBC 7.0 4.8 - 10.8 K/mcL LAB HEMETOLOGY METHOD 11/18/2024 10:[address] [facility] RBC 3.00(L) 3.80 - 4.80 M/mcL LAB HEMETOLOGY METHOD 11/18/2024 10:[address] [facility] Hemoglobin 8.8(L) 11.5 - 16.0 g/dL LAB HEMETOLOGY METHOD 11/18/2024 10:18 AM [facility] Hematocrit 26.8(L) 35.0 - 47.0 % LAB HEMETOLOGY METHOD 11/18/2024 10:18 AM [facility] MCV 90.8 79.0 - 98.0 FL LAB HEMETOLOGY METHOD 11/18/2024 10:18 AM [facility] MCH 29.8 27.0 - 32.0 pcg LAB HEMETOLOGY METHOD 11/18/2024 10:18 AM [facility] MCHC 32.8 32.0 - 37.0 g/dL LAB HEMETOLOGY METHOD 11/18/2024 10:18 AM [facility] RDW 13.2 11.0 - 15.0 % LAB HEMETOLOGY METHOD 11/18/2024 10:18 AM [facility] Platelets 352 130 - 400 K/mcL LAB HEMETOLOGY METHOD 11/18/2024 10:18 AM [facility] MPV 10.5 7.0 - 11.0 FL LAB HEMETOLOGY METHOD 11/18/2024 10:18 AM [facility] NRBC 0.0 <1.0 % LAB HEMETOLOGY METHOD 11/18/2024 10:18 AM [facility] NRBC Absolute 0.00 <0.10 K/mcL LAB HEMETOLOGY METHOD 11/18/2024 10:18 AM [facility] Neutrophils Relative 74.3 % LAB HEMETOLOGY METHOD 11/18/2024 10:18 AM [facility] Lymphocytes Relative 9.5 % LAB HEMETOLOGY METHOD 11/18/2024 10:18 AM [facility] Monocytes Relative 11.1 % LAB HEMETOLOGY METHOD 11/18/2024 10:[address] [facility] Eosinophils Relative 2.7 % LAB HEMETOLOGY METHOD 11/18/2024 10:18 AM [facility] Basophils Relative 1.0 % LAB HEMETOLOGY METHOD 11/18/2024 10:18 AM [facility] Immature Granulocytes Relative 1.4 % LAB HEMETOLOGY METHOD 11/18/2024 10:18 AM [facility] Neutrophils Absolute 5.23 1.50 - 7.00 K/mcL LAB HEMETOLOGY METHOD 11/18/2024 10:18 AM [facility] Lymphocytes Absolute 0.67(L) 1.00 - 5.00 K/mcL LAB HEMETOLOGY METHOD 11/18/2024 10:18 AM [facility] Monocytes Absolute 0.78 0.20 - 1.00 K/mcL LAB HEMETOLOGY METHOD 11/18/2024 10:18 AM [facility] Eosinophils Absolute 0.19 0.00 - 0.50 K/mcL LAB HEMETOLOGY METHOD 11/18/2024 10:18 AM [facility] Basophils Absolute 0.07 0.00 - 0.20 K/mcL LAB HEMETOLOGY METHOD 11/18/2024 10:18 AM [facility] Immature Granulocytes Absolute 0.10(H) 0.00 - 0.03 K/mcL LAB HEMETOLOGY METHOD 11/18/2024 10:18 AM [facility] Blood Venous blood specimen / Unknown Venipuncture / Unknown 11/18/2024 6:02 AM EST 11/18/2024 9:16 AM EST us Horace Solomon MD LAB BLOOD ORDERABLES Final Res ult [facility] [address] [place] [address], * Magnesium (11/18/2024 6:02 AM EST) Pathologist [facility] Magnesium 2.0 1.9 - 2.6 mg/dL LAB CHEMISTRY METHOD 11/18/2024 10:[address] [facility] Blood Venous blood specimen / Unknown Venipuncture / Unknown 11/18/2024 6:02 AM EST 11/18/2024 9:16 AM EST Horace Solomon MD LAB BLOOD ORDERABLES Final Res ult [facility] [address] [place] [address], [place] [phone] * Folate (11/18/2024 6:02 AM EST) [facility] Folate 7.3 2.8 - 17.0 ng/ml LAB CHEMISTRY METHOD 11/18/2024 11:[address] [facility] Blood Venous blood specimen / Unknown Venipuncture / Unknown 11/18/2024 6:02 AM EST 11/18/2024 9:16 AM EST us Horace Solomon MD LAB BLOOD ORDERABLES Final Res ult [facility] [address] [place] [address], [place] [phone] * (ABNORMAL) Vitamin B12 (11/18/2024 6:02 AM EST) Pathologist [facility] Vitamin B-12 951(H) 250 - 900 pcg/mL LAB CHEMISTRY METHOD 11/18/2024 11:[address] [facility] Blood Venous blood specimen / Unknown Venipuncture / Unknown 11/18/2024 6:02 AM EST 11/18/2024 9:16 AM EST us Horace Solomon MD LAB BLOOD ORDERABLES Final Res ult [facility] [address] [place] [address], * (ABNORMAL) Basic metabolic panel (11/18/2024 6:02 AM EST) Sodium 136 133 - 145 mmol/L LAB CHEMISTRY METHOD 11/18/2024 10:40 AM [facility] Potassium 3.8 3.5 - 5.5 mmol/L LAB CHEMISTRY METHOD 11/18/2024 10:40 AM [facility] Chloride 102 96 - 110 mmol/L LAB CHEMISTRY METHOD 11/18/2024 10:40 AM [facility] CO2 27 21 - 32 mmol/L LAB CHEMISTRY METHOD 11/18/2024 10:40 AM [facility] Anion Gap 7 3 - 11 LAB CHEMISTRY METHOD 11/18/2024 10:40 AM [facility] Glucose 102(H) 70 - 100 mg/dL LAB CHEMISTRY METHOD 11/18/2024 10:40 AM [facility] BUN 64(H) 5 - 25 mg/dL LAB CHEMISTRY METHOD 11/18/2024 10:40 AM [facility] Creatinine 3.36(H) 0.50 - 1.10 mg/dL LAB CHEMISTRY METHOD 11/18/2024 10:40 AM [facility] eGFR 13(L) >=60 mL/min/1. 73m2 LAB CHEMISTRY METHOD 11/18/2024 10:40 AM [facility] Comment:Calculation based on the??Chronic Kidney Disease Epidemiology Collaboration (CKD-EPI) equation refit??without adjustment for race. BUN/Creatinine Ratio 19.0 LAB CHEMISTRY METHOD 11/18/2024 10:40 AM [facility] Calcium 9.0 8.5 - 10.5 mg/dL LAB CHEMISTRY METHOD 11/18/2024 10:40 AM [facility] Blood Venous blood specimen / Unknown Venipuncture / Unknown 11/18/2024 6:02 AM EST 11/18/2024 9:16 AM EST us Horace Solomon MD LAB BLOOD ORDERABLES Final Res ult [facility] [address] [place] [address], documented in this encounter Visit Diagnoses Diagnosis Encounter for other general examination documented in this encounter Additional Health Concerns Infection Onset Date Last Indicated Resolved Time Respiratory Rule-Out 11/26/2024 11/26/2024 024 6:03 PM EST Gastrointestinal Rule-Out 11/30/2024 11/30/2024 7:06 PM EST Assessment Noted Time PHQ-9 Depression Total Score: 0 10/30/20 24 10:57 PM EST documented as of this encounter Care Teams Motion Picture Photographer Relationship Specialty Start Date End Date Anil Bettencourt MD [address] [place] [address] PCP - General 08/02/01 documented as of this encounter
--- OUTSIDE RECORDS SUMMARY | 2025-01-19 08:43 | XMS_ITS | Encounter Summary ---
Author Organization [facility] Address [address] [place] [address] Care Team Providers Care Supervisor Polishing Name Role Phone Anil Bettencourt MD Primary Care Provider [phone] Encounter Details Date Type Department Care Team ([facility] Contact Info) Description 11/21/2024 Lab Requisition [facility] - Main Lab [address] [place] [address] Horace Solomon MD [address] [place] [address] Encounter for other general examination Social History [...] AM EST Office Visit Adult Medicine - [place] [address] [place] [phone] Katharine Wadsworth MD [address] [place] [address] 03/27/2025 1:45 PM EDT Office Visit [facility]phrology - [facility] [address] [facility] [place] [phone] Joel Colvin MD [address] [place] [address] documented as of this encounter Procedures Procedure Name Priority Date/Time Associated Diagnosis Comments BASIC METABOLIC PANEL Routine 11/21/2024 5:25 AM EST Encounter for other general examination documented in this encounter Results * (ABNORMAL) Basic metabolic panel (11/21/2024 5:25 AM EST) Sodium 139 133 - 145 mmol/L LAB CHEMISTRY METHOD 11/21/2024 10:44 AM [facility] Potassium 3.7 3.5 - 5.5 mmol/L LAB CHEMISTRY METHOD 11/21/2024 10:44 AM [facility] Chloride 103 96 - 110 mmol/L LAB CHEMISTRY METHOD 11/21/2024 10:44 AM [facility] CO2 27 21 - 32 mmol/L LAB CHEMISTRY METHOD 11/21/2024 10:44 AM [facility] Anion Gap 9 3 - 11 LAB CHEMISTRY METHOD 11/21/2024 10:44 AM [facility] Glucose 137(H) 70 - 100 mg/dL LAB CHEMISTRY METHOD 11/21/2024 10:44 AM [facility] BUN 67(H) 5 - 25 mg/dL LAB CHEMISTRY METHOD 11/21/2024 10:44 AM [facility] Creatinine 3.59(H) 0.50 - 1.10 mg/dL LAB CHEMISTRY METHOD 11/21/2024 10:44 AM EST [facility] eGFR 12(L) >=60 mL/min/1. 73m2 LAB CHEMISTRY METHOD 11/21/2024 10:44 AM EST [facility] Comment:Calculation based on the??Chronic Kidney Disease Epidemiology Collaboration (CKD-EPI) equation refit??without adjustment for race. BUN/Creatinine Ratio 18.7 LAB CHEMISTRY METHOD 11/21/2024 10:44 AM [facility] Calcium 8.3(L) 8.5 - 10.5 mg/dL LAB CHEMISTRY METHOD 11/21/2024 10:44 AM [facility] Blood Venous blood specimen / Unknown Venipuncture / Unknown 11/21/2024 5:25 AM EST 11/21/2024 9:37 AM EST us Horace Solomon MD LAB BLOOD ORDERABLES Final Res ult [facility] [address] [place] [address], documented in this encounter Visit Diagnoses Diagnosis Encounter for other general examination documented in this encounter Additional Health Concerns Infection Onset Date Last Indicated Resolved Time Respiratory Rule-Out 11/26/2024 11/26/2024 024 6:03 PM EST Gastrointestinal Rule-Out 11/30/2024 11/30/2024 7:06 PM EST Assessment Noted Time PHQ-9 Depression Total Score: 0 10/30/20 10:57 PM EST documented as of this encounter Care Teams Supervisor Polishing Relationship Specialty Start Date End Date Anil Bettencourt MD [address] [place] [address] PCP - General 08/02/01 documented as of this encounter
--- OUTSIDE RECORDS SUMMARY | 2025-01-19 08:43 | XMS_ITS | Encounter Summary ---
Author Organization [facility] Address [address] [place] [address] Care Team Providers Care Process Design Engineer Name Role Phone Anil Bettencourt MD Primary Care Provider [phone] Reason for Visit * Reason Onset Date Comments Faxed Order [id number] 01/08/2025 Encounter Details Date Type Department Care Team ([facility] st Contact Info) Description 01/08/2025 Telephone Adult Medicine [facility] [address] [place] [phone] Anil Bettencourt MD [address] [place] [address] Faxed Order [id number] Social History Tobacco Use Types Packs/Day Years [...] care for your loved ones. For example, school childcare attendant or elderly care for an older [...] as of this encounter Progress Notes * Lety Cortes - 01/18/2025 2:40 PM EST Please refax * Chata Charles MA - 01/16/2025 10:30 AM EST Faxed and filed. * Chata Charles MA - 01/11/2025 1:[address] Bettencourt to sign. * Lety Cortes - 01/08/2025 1:31 PM EST PLEASE CLOSE MESSAGE WHEN ORDER HAS BEEN FAXED Faxed order [id number] received from [employer], requesting signature from provider. Please sign and fax back to [phone]. Order in Green folder documented in this encounter Plan of Treatment Upcoming Encounters Date Type Department Care Team (Late st Contact Info) Description 01/29/2025 10:30 AM EST Office Visit Adult Medicine - [address] [phone] Katharine Wadsworth MD [address] [place] [address] 03/27/2025 1:45 PM EDT Office Visit Nephrology - [place] [address] [place] [phone] Joel Colvin MD [address] [place] [address] documented as of this encounter Visit Diagnoses Not on filedocumented in this encounter Additional Health Concerns Assessment Noted Time PHQ-9 Depression Total Score: 0 10/30/20 10:57 PM EST documented as of this encounter Care Teams Process Design Engineer Relationship Specialty Start Date End Date Anil Bettencourt MD [address] [place] [address] PCP - General 08/02/01 documented as of this encounter
--- OUTSIDE RECORDS SUMMARY | 2025-01-19 08:43 | XMS_ITS | Encounter Summary ---
Author Organization [facility] Address [address] [place] [address] Care Team Providers Care Outside Production Inspector Name Role Phone Anil Bettencourt MD Primary Care Provider [phone] Reason for Visit * Reason Onset Date Comments Faxed Order [id number] 01/08/2025 Encounter Details Date Type Department Care Team ([facility] st Contact Info) Description 01/08/2025 Telephone Adult Medicine [facility] [address] [place] [phone] Anil Bettencourt MD [address] [place] [address] Faxed Order [id number] Social History Tobacco Use Types Packs/Day Years [...] care for your loved ones. For example, exceptional children's teacher or elderly care for an older [...] Progress Notes * Lety Cortes - 01/18/2025 2:30 PM EST Please refax * Chata Charles MA - 01/16/2025 10:29 AM EST Faxed and filed. * Chata Charles MA - 01/11/2025 1:[address] Bettencourt to sign. * Lety Cortes - 01/08/2025 1:33 PM EST PLEASE CLOSE MESSAGE WHEN ORDER HAS BEEN FAXED Faxed order [id number] received from [employer], requesting signature from provider. Please sign and fax back to [phone]. Order in Green folder documented in this encounter Plan of Treatment Upcoming Encounters Date Type Department Care Team (Late st Contact Info) Description 01/29/2025 10:30 AM EST Office Visit Adult Medicine - [address] [phone] Katharine Wadsworth MD [address] [place] [address] 03/27/2025 1:45 PM EDT Office Visit Nephrology - [place] [address] [place] [phone] Joel Colvin MD [address] [place] [address] documented as of this encounter Visit Diagnoses Not on filedocumented in this encounter Additional Health Concerns Assessment Noted Time PHQ-9 Depression Total Score: 0 10/30/20 10:57 PM EST documented as of this encounter Care Teams Outside Production Inspector Relationship Specialty Start Date End Date Anil Bettencourt MD [address] [place] [address] PCP - General 08/02/01 documented as of this encounter
--- OUTSIDE RECORDS SUMMARY | 2025-01-19 08:43 | XMS_ITS | Encounter Summary ---
Author Organization [facility] Address [address] [place] [address] Care Team Providers Care Manager Study Name Role Phone Anil Bettencourt MD Primary Care Provider [phone] Encounter Details Date Type Department Care Team ([facility] Contact Info) Description 11/15/2024 Lab Requisition [facility] - Main Lab [address] [place] [address] Horace Solomon MD [address] [place] [address] Encounter for other general examination Social History [...] care for your loved ones. For example, children librarian or elderly care for an older adult? [...] AM EST Office Visit Adult Medicine - [place] [address] [place] [phone] Katharine Wadsworth MD [address] [place] [address] 03/27/2025 1:45 PM EDT Office Visit Nephrology - [place] [address] [place] [phone] Joel Colvin MD [address] [place] [address] documented as of this encounter Procedures Procedure Name Priority Date/Time Associated Diagnosis Comments MAGNESIUM Routine 11/15/2024 5:15 AM EST Encounter for other general examination documented in this encounter Results * Magnesium (11/15/2024 5:15 AM EST) Magnesium 1.9 1.9 - 2.6 mg/dL LAB CHEMISTRY METHOD 11/15/2024 11:02 AM EST [facility] Blood Venous blood specimen / Unknown Venipuncture / Unknown 11/15/2024 5:15 AM EST 11/15/2024 9:57 AM EST us Horace Solomon MD LAB BLOOD ORDERABLES Final Res ult [facility] [address] [place] [address], documented in this encounter Visit Diagnoses Diagnosis Encounter for other general examination documented in this encounter Additional Health Concerns Infection Onset Date Last Indicated Resolved Time Respiratory Rule-Out 11/26/2024 11/26/2024 024 6:03 PM EST Gastrointestinal Rule-Out 11/30/2024 11/30/2024 7:06 PM EST Assessment Noted Time PHQ-9 Depression Total Score: 0 10/30/20 10:57 PM EST documented as of this encounter Care Teams Manager Study Relationship Specialty Start Date End Date Anil Bettencourt MD [address] [place] [address] PCP - General 08/02/01 documented as of this encounter
--- OUTSIDE RECORDS SUMMARY | 2025-01-19 08:44 | XMS_ITS ---
Author Organization [facility] Address [address] [place], [place] [address] Phone Care Team Providers Care Soil Field Technician Name Role Phone Anil Bettencourt MD Primary Care Provider Post Acute Care Coordination Status:Ongoing (Active) Start date:01/03/2025 Enrollment date:01/03/2025 Enrollment reason:Post acute care coordination Case Team Name Relationship Phone Naima Gutierrez RN Post Acute Medical Staff Coordinator(Jyoti saldaña Staff) Continued Care and Services Coordination
--- OUTSIDE RECORDS SUMMARY | 2025-01-19 08:44 | XMS_ITS | Encounter Summary ---
Author Organization [facility] Address [address] [place] [address] Care Team Providers Care Orthodontist Name Role Phone Anil Bettencourt MD Primary Care Provider [phone] Reason for Visit * Reason Onset Date Comments triage call back 11/28/2024 Encounter Details Date Type Department Care Team ([facility] st Contact Info) Description 11/28/2024 Telephone Adult Medicine [facility] [address] [place] [phone] Anil Bettencourt MD [address] [place] [address] triage call back Social History Tobacco Use Types Packs/Day Years [...] care for your loved ones. For example, early childhood specialist or elderly care for an older adult? [...] Progress Notes * Cortney Tinoco RN - 12/04/2024 5:06 PM EST I called and spoke to pt's daughter, Jose, and informed her of the below recommendation to decrease Metoprolol to 50 mg daily. She voiced understanding. I informed Latoya, visiting nurse, as well. Updated med module * Albert Webber NP - 12/04/2024 4:34 PM EST Please have them half the Metoprolol dose. * Cortney Tinoco RN - 12/01/2024 4:39 PM EST I spoke to Latoya from [facility]. During her home visit today, pt's HR was 50 bpm, BP146/50. She also saw pt on 11/28/24 and her HR was 50 bpm at that time. Pt has not been reporting any dizziness, lightheadedness, weakness, or fatigue per Latoya. She had a surgery on her right foot on 11/08/24. She then went to rehab where her HR was noted to be low. They took her off of Metoprolol ER 100 mg daily, then restarted the med upon discharge. Zully was last seen in office 10/23/24. Please review. * Demi Diggs LPN - 12/01/2024 3:26 PM EST Spoke with visiting nurse, patient with low heart rate. Will forward to cardiology. She has order for stool spec. * Alonzo Starr - 12/01/2024 2:58 PM EST Please call vna back * Demi Diggs LPN - 12/01/2024 9:49 AM EST Message Left, Awaiting return call * Anil Bettencourt MD - 11/30/2024 7:20 PM EST ok * Nate Guillory RN - 11/28/2024 4:07 PM EST Is this all right * Bianka Romo - 11/28/2024 4:02 PM EST [facility] CALL Which [facility] office is calling? [facility] Full name of caller: Latoya from [facility] The caller is Latoya from [facility] Is the caller at the patients home?: no Reason for call: >asking for a call back with verbal orders for start of care >patient has been having diarrhea for last few days for several times a day. Nurse is asking fororders to bring stool sample to the lab for testing. >heart rate was 50 today Does caller need an urgent call back? no Was CONTACT Telephone # obtained above?: Yes Fax #: documented in this encounter Plan of Treatment Upcoming Encounters Date Type Department Care Team (Late st Contact Info) Description 01/29/2025 10:30 AM EST Office Visit Adult Medicine - [place] [address] [place] [address] Katharine Wadsworth MD [address] [place] [address] 03/27/2025 1:45 PM EDT Office Visit Nephrology - [place] [address] [place], [place] [address] [address] Joel Colvin MD [address] [place] [address] Scheduled Orders Name Type Priority Associated Diagnoses Orde r Schedule Clostridium difficile toxin Microbiology Routine Diarrhea, unspecified type 1 Occurrences starting 11/30/2024 until 11/30/2025 Culture salmonella, shigella, campylobacter and shIgA toxin with reflex to e coli culture Microbiology Routine Diarrhea, unspecified type 1 Occurrences starting 11/30/2024 until 11/30/2025 documented as of this encounter Visit Diagnoses Diagnosis Diarrhea, unspecified type- Primary documented in this encounter Additional Health Concerns Infection Onset Date Last Indicated Resolved Time Gastrointestinal Rule-Out 11/30/2024 11/30/2024 7:06 PM EST Assessment Noted Time PHQ-9 Depression Total Score: 0 10/30/20 24 10:57 PM EST documented as of this encounter Care Teams Orthodontist Relationship Specialty Start Date End Date Anil Bettencourt MD [address] [place] [address] PCP - General 08/02/01 documented as of this encounter
--- OUTSIDE RECORDS SUMMARY | 2025-01-19 08:44 | XMS_ITS ---
Author Organization [facility] Address [address] [place], [place] [address] Phone Care Team Providers Care Division Commander Name Role Phone Anil Bettencourt MD Primary Care Provider [phone] Transitional Care Management Status:Closed (Closed) Start date:11/27/2024 Enrollment date:11/27/2024 Enrollment reason:Identified using hospital discharge data End date:12/28/2024 Close reason:Completed program Continued Care and Services Coordination
--- OUTSIDE RECORDS SUMMARY | 2025-01-19 08:44 | XMS_ITS | Clinical Summary ---
Author Organization Unknown Care Team Providers Care Summer Babysitter Name Role Phone RAMON AKINS, JOHN Unavailable Unavailable CANDY RN, SHADE Unavailable Unavailable HERNAN DRAPERY INSPECTOR, ALICE Unavailable Unavailable [place] OT, CASTRO Unavailable Unavailable CONDINO HOT PLATE PLYWOOD PRESS OPERATOR/RENE, MAZIN Unavailable Unav ailable WESLEY PT, OLIVIA Unavailable Unavailable HAMEED PRODUCT SAFETY TECHNICIAN, CHI Unavailable Unavailable Payers Payer Name Policy Type Policy Number Effective Date Expira tion Date MEDICARE.NGS.PDGM [id number] Problems Condition Name Condition Details Condition Category Status Onset Date Resolution Date Last Treatment Date Treating Clinician Comments ENCOUNTER FOR OTHER ORTHOPEDIC AFTERCARE Active 2023-11 00:00: 00 CHRONIC GOUT, UNSPECIFIED, WITH TOPHUS (TOPHI) Active 2023-11 00:00: 00 HYPERTENSIVE CHRONIC KIDNEY DISEASE 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 Active 2023-11 00:00: 00 TYPE 2 DIABETES MELLITUS W DIABETIC CHRONIC KIDNEY DISEASE Active 2023-11 00:00: 00 CHRONIC KIDNEY DISEASE, STAGE 4 (SEVERE) Active 2023-11 00:00: 00 ANEMIA IN CHRONIC KIDNEY DISEASE Active 2023-11 00:00: 00 TYPE 2 DIABETES MELLITUS WITH DIABETIC POLYNEUROPAT HY Active 2023-11 00:00: 00 ATHSCL HEART DISEASE OF [place] CORONARY ARTERY W/O ANG PCTRS Active 11-29 00:00: 00 PAROXYSMAL ATRIAL FIBRILLATION Active 11-29 00:00: 00 OTHER THROMBOPHILI A Active 11-29 00:00: 00 HYPOTHYROIDI SM, UNSPECIFIED Active 11-29 00:00: 00 GASTRO-ESOPH AGEAL REFLUX DISEASE WITHOUT ESOPHAGITIS Active 11-29 00:00: 00 ACQUIRED ABSENCE OF OTHER RIGHT TOE(S) Active 11-29 00:00: 00 PRESENCE OF CORONARY ANGIOPLASTY IMPLANT AND GRAFT Active 11-29 00:00: 00 TRANSFER TABLE 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 Ordering Clinician Indication Dosage Frequency Signature (SIG) Comments Components pravastatin 80 mg tablet 05-26 00:00: 00 10-16 23:59 :00 No [id number] TREATS HIGH CHOLESTEROL 80 mg BEDTIME 80 mg BEDTIME (route: oral) Med Classific ation: Cardiovas cular Therapy Agents levothyroxi ne 112 mcg tablet 03-10 00:00: 00 03-03 23:59 :00 No [id number] THYROID MED 112 mcg EVERY DAY 112 mcg EVERY DAY (route: oral) Med Classific ation: Endocrine bumetanide 1 mg tablet 05-03 00:00: 00 03-03 23:59 :00 No [id number] DIURETIC 1 mg EVERY 48 HOURS 1 mg EVERY 48 HOURS (route: oral) Med Classific ation: Cardiovas cular Therapy Agents olmesartan 20 mg tablet 05-16 00:00: 00 03-03 23:59 :00 No [id number] B/P MED 20 mg EVERY DAY 20 mg EVERY DAY (route: oral) Med Classific ation: Cardiovas cular Therapy Agents metoprolol succinate ER 100 mg tablet,exte nded release 24 hr 09 00:00: 00 03-03 23:59 :00 No [id number] B/P MED 100 mg EVERY DAY 100 mg EVERY DAY (route: oral) Med Classific ation: Cardiovas cular Therapy Agents Vascepa 1 gram capsule 7-10 00:00: 00 07-03 00:00 :00 No [id number] Per instruc tions Per instructio ns (route: oral) Med Classific ation: Cardiovas cular Therapy Agents omeprazole 20 mg capsule,del ayed release 6-14 00:00: 00 03-03 23:59 :00 No [id number] FOR GERD 20 mg EVERY DAY 20 mg EVERY DAY (route: oral) Med Classific ation: Gastroint estinal Therapy Agents gabapentin 600 mg tablet - 00:00: 00 07-03 00:00 :00 No [id number] Per instruc tions TWICE A DAY Per instructio ns TWICE A DAY (route: oral) Med Classific ation: Central Nervous System Agents amlodipine 5 mg tablet 05-16 00:00: 00 10-16 23:59 :00 No [id number] B /P MED 5 mg EVERY DAY 5 mg EVERY DAY (route: oral) Med Classific ation: Cardiovas cular Therapy Agents calcitriol 0.25 mcg capsule -19 00:00: 00 10-16 23:59 :00 No [id number] SUPPLEMENT 25 mcg EVERY OTHER DAY 25 mcg EVERY OTHER DAY (route: oral) Med Classific ation: Electroly te Balance-N utritiona l Products Tresiba FlexTouch U-100 insulin 100 unit/mL (3 mL) [facility] s pen -13 00:00: 00 07-03 00:00 :00 No [id number] Per instruc tions Per instructio ns (route: subcutaneo us) Med Classific ation: Endocrine Novolog Flexpen U-100 Insulin aspart 100 unit/mL (3 mL) subcutaneou s 6-07 00:00: 00 10-16 23:59 :00 No [id number] TREATS DIABETES Per instruc tions 3 TIMES A DAY Per instructio ns 3 TIMES A DAY (route: subcutaneo us) Med Classific ation: Endocrine BD Ultra-Fine Rosita Pen Needle 32 gauge x 5/32 4-14 00:00: 00 03-03 23:59 :00 No [id number] FOR DIABETES Per instruc tions 3 TIMES DAILY Per instructio ns 3 TIMES DAILY (route: miscellane ous) Med Classific ation: Medical Supplies and Durable Medical Equipment (DME) alpha lipoic acid 100 mg capsule 07-03 00:00: 00 10-16 23:59 :00 No [id number] SUPPLEMENT 100 mg DAILY 100 mg DAILY (route: oral) Med Classific ation: Alternati ve Therapy Aspir-81 mg tablet,deuce yed release 07-03 00:00: 00 03-03 23:59 :00 No [id number] PREVENTS M.I. 81 mg DAILY 81 mg DAILY (route: oral) Med Classific ation: Hematolog ical Agents cephalexin 500 mg capsule 07-03 00:00: 00 07-08 23:59 :00 No [id number] ANTIBIOTIC 500 mg 2 TIMES DAILY 500 mg 2 TIMES DAILY (route: oral) Med Classific ation: Anti-Infe ctive Agents Diflucan 100 mg tablet 07-03 00:00: 00 10-16 23:59 :00 No [id number] PREVENTS FUNGAL INF. 100 mg DAILY 100 mg DAILY (route: oral) Med Classific ation: Anti-Infe ctive Agents gabapentin 300 mg capsule 07-03 00:00: 00 03-03 23:59 :00 No [id number] NERVE PAIN, WEAKNESS 300 mg 2 TIMES DAILY 300 mg 2 TIMES DAILY (route: oral) Med Classific ation: Central Nervous System Agents icosapent ethyl 1 gram capsule 07-03 00:00: 00 10-16 23:59 :00 No [id number] REDUCES HEART ATTACKS 2 g 2 TIMES DAILY 2 g 2 TIMES DAILY (route: oral) Med Classific ation: Cardiovas cular Therapy Agents Restasis 0.05 % eye drops in a dropperette 07-03 00:00: 00 03-03 23:59 :00 No [id number] DRY EYES 0.4 2 TIMES DAILY 0.4 % 2 TIMES DAILY (route: ophthalmic (eye)) Med Classific ation: Ophthalmi c Agents thiamine HCl (vitamin B1) 100 mg tablet 07-03 00:00: 10-16 23:59 :00 No [id number] SUPPLEMENT 100 mg DAILY 100 mg DAILY (route: oral) Med Classific ation: Electroly te Balance-N utritiona l Products allopurinol 100 mg tablet 07-08 00:00: 00 10-16 23:59 :00 No [id number] GOUT 1 tablet DAILY 1 tablet DAILY (route: oral) Med Classific ation: Gout and Hyperuric emia Therapy Calcium 600 + D(3) 600 mg (1,500 mg)-200 unit tablet 07-08 00:00: 00 10-16 23:59 :00 No [id number] SUPPLEMENT 1 tablet DAILY 1 tablet DAILY (route: oral) Med Classific ation: Electroly te Balance-N utritiona l Products fluconazole 100 mg tablet 07-08 00:00: 00 10-16 23:59 :00 No [id number] ANTIFUNGAL 1 tablet DAILY 1 tablet DAILY (route: oral) Med Classific ation: Anti-Infe ctive Agents hydralazine 50 mg tablet 07-08 00:00: 10-16 23:59 :00 No [id number] BLOOD PRESSURE 1 tablet 3 TIMES DAILY 1 tablet 3 TIMES DAILY (route: oral) Med Classific ation: Cardiovas cular Therapy Agents Tresiba U-100 Insulin 100 unit/mL subcutaneou s solution 07-08 00:00: 00 07-28 23:59 :00 No [id number] DIABETES 54-64 unit DAILY 54-64 unit DAILY (route: subcutaneo us) Med Classific ation: Endocrine Tresiba U-100 Insulin 100 unit/mL subcutaneou s solution 07-28 00:00: 00 03-03 23:59 :00 No [id number] INSULIN 40 unit 2 TIMES DAILY 40 unit 2 TIMES DAILY (route: subcutaneo us) Med Classific ation: Endocrine allopurinol 100 mg tablet 2020-11 00:00: 03-03 23:59 :00 No [id number] GOUT 2 tablet DAILY 2 tablet DAILY (route: oral) Med Classific ation: Gout and Hyperuric emia Therapy alpha lipoic acid 300 mg capsule 2020-11 00:00: 00 03-03 23:59 :00 No [id number] HEART DISEASE 1 capsule 2 TIMES DAILY 1 capsule 2 TIMES DAILY (route: oral) Med Classific ation: Alternati ve Therapy amlodipine 10 mg tablet 2020-11 00:00: 00 03-03 23:59 :00 No [id number] BLOOD PRESSURE 1 tablet DAILY 1 tablet DAILY (route: oral) Med Classific ation: Cardiovas cular Therapy Agents atorvastati n 80 mg tablet 2020-11 00:00: 00 03-03 23:59 :00 No [id number] CHOLESTEROL 1 tablet BEDTIME 1 tablet BEDTIME (route: oral) Med Classific ation: Cardiovas cular Therapy Agents Brilinta 90 mg tablet 2020-11 00:00: 00 03-03 23:59 :00 No [id number] ANTICOAGULA NT 1 tablet 2 TIMES DAILY 1 tablet 2 TIMES DAILY (route: oral) Med Classific ation: Hematolog ical Agents calcitriol 0.25 mcg capsule 2020-11 00:00: 00 03-03 23:59 :00 No [id number] KIDNEY HEALTH 1 capsule DAILY 1 capsule DAILY (route: oral) Med Classific ation: Electroly te Balance-N utritiona l Products Calcium 500 + D 500 mg (1,250 mg)-200 unit tablet 2020-11 00:00: 00 03-03 23:59 :00 No [id number] SUPPLEMENT 1 tablet DAILY 1 tablet DAILY (route: oral) Med Classific ation: Electroly te Balance-N utritiona l Products gabapentin 300 mg capsule 2020-11 00:00: 00 10-26 00:00 :00 No [id number] NERVE PAIN 1 capsule 2 TIMES DAILY 1 capsule 2 TIMES DAILY (route: oral) Med Classific ation: Central Nervous System Agents hydrocortis one 2.5 % topical cream 2020-11 00:00: 00 03-03 23:59 :00 No [id number] ITCHY RASH 1 inch 2 TIMES DAILY 1 inch 2 TIMES DAILY (route: topical) Med Classific ation: Dermatolo gical Novolog Flexpen U-100 Insulin aspart 100 unit/mL (3 mL) subcutaneou s 2020-11 00:00: 00 03-03 23:59 :00 No [id number] DIABETES 6-20 unit 3 TIMES DAILY 6-20 unit 3 TIMES DAILY (route: subcutaneo us) Med Classific ation: Endocrine Saccharomyc es boulardii 250 mg capsule 2020-11 00:00: 00 03-03 23:59 :00 No [id number] PROBIOTICS 1 capsule 2 TIMES DAILY 1 capsule 2 TIMES DAILY (route: oral) Med Classific ation: Gastroint estinal Therapy Agents hydrocortis one 2.5 % topical cream 02-13 00:00: 00 03-05 23:59 :00 No [id number] RASH Per instruc tions TWICE A DAY Per instructio ns TWICE A DAY (route: topical) Med Classific ation: Dermatolo gical amoxicillin 500 mg capsule 02-16 00:00: 00 03-05 23:59 :00 No [id number] ABX Per instruc tions THREE TIMES A DAY Per instructio ns THREE TIMES A DAY (route: oral) Med Classific ation: Anti-Infe ctive Agents pravastatin 80 mg tablet 2020-11 00:00: 00 05-28 23:59 :00 No [id number] CHOLESTEROL Per instruc tions EVERY DAY Per instructio ns EVERY DAY (route: oral) Med Classific ation: Cardiovas cular Therapy Agents levothyroxi ne 112 mcg tablet 01-07 00:00: 00 03-15 23:59 :00 No [id number] SUPPLEMENT Per instruc tions EVERY DAY Per instructio ns EVERY DAY (route: oral) Med Classific ation: Endocrine bumetanide 1 mg tablet 1- 00:00: 00 05-28 23:59 :00 No [id number] DECREASE EDEMA Per instruc tions EVERY 48 HOURS Per instructio ns EVERY 48 HOURS (route: oral) Med Classific ation: Cardiovas cular Therapy Agents calcitriol 0.25 mcg capsule 1-23 00:00: 00 05-28 23:59 :00 No [id number] SUPPLEMENT Per instruc tions EVERY OTHER DAY Per instructio ns EVERY OTHER DAY (route: oral) Med Classific ation: Electroly te Balance-N utritiona l Products thiamine HCl (vitamin B1) 50 mg tablet - 00:00: 00 05-28 23:59 :00 No [id number] SUPPLEMENT Per instruc tions EVERY DAY Per instructio ns EVERY DAY (route: oral) Med Classific ation: Electroly te Balance-N utritiona l Products clopidogrel 75 mg tablet - 00:00: 00 03-15 23:59 :00 No [id number] PREVENT CLOT Per instruc tions EVERY DAY Per instructio ns EVERY DAY (route: oral) Med Classific ation: Hematolog ical Agents gabapentin 300 mg capsule 2-18 00:00: 00 03-15 23:59 :00 No [id number] NERVE PAIN Per instruc tions TWICE A DAY Per instructio ns TWICE A DAY (route: oral) Med Classific ation: Central Nervous System Agents amlodipine 10 mg tablet 2-09 00:00: 00 03-15 23:59 :00 No [id number] HTN Per instruc tions EVERY DAY Per instructio ns EVERY DAY (route: oral) Med Classific ation: Cardiovas cular Therapy Agents olmesartan 20 mg tablet 2020-11 2-16 00:00: 00 05-28 23:59 :00 No [id number] HTN Per instruc tions EVERY DAY Per instructio ns EVERY DAY (route: oral) Med Classific ation: Cardiovas cular Therapy Agents ibuprofen 800 mg tablet 3-21 00:00: 00 03-05 23:59 :00 No [id number] FOR PAIN Per instruc tions EVERY 6 HOURS NEEDED Per instructio ns EVERY 6 HOURS NEEDED (route: oral) Med Classific ation: Analgesic , Anti-infl ammatory or Antipyret ic metoprolol succinate ER 100 mg tablet,exte nded release 24 hr 1-27 00:00: 00 03-15 23:59 :00 No [id number] HTN Per instruc tions EVERY DAY Per instructio ns EVERY DAY (route: oral) Med Classific ation: Cardiovas cular Therapy Agents Vascepa 1 gram capsule 2-04 00:00: 00 05-28 23:59 :00 No [id number] REDUCE LIPIDS Per instruc tions 2 TIMES DAILY Per instructio ns 2 TIMES DAILY (route: oral) Med Classific ation: Cardiovas cular Therapy Agents allopurinol 100 mg tablet 3-03 00:00: 00 05-28 00:00 :00 No [id number] GOUT Per instruc tions EVERY DAY Per instructio ns EVERY DAY (route: oral) Med Classific ation: Gout and Hyperuric emia Therapy Tresiba FlexTouch U-100 insulin 100 unit/mL (3 mL) subcutaneou s pen 2020-11 2- 00:00: 00 04-14 23:59 :00 No [id number] DM 40 unit 2 TIMES DAILY 40 unit 2 TIMES DAILY (route: subcutaneo us) Med Classific ation: Endocrine OneTouch Verio test strips 02-27 00:00: 00 03-05 23:59 :00 No [id number] DM 1 strip DAILY 1 strip DAILY (route: miscellane ous) Med Classific ation: Medical Supplies and Durable Medical Equipment (DME) Eliquis 5 mg tablet 03-07 00:00: 00 03-15 23:59 :00 No [id number] PREVENT CLOT 1 tablet 2 TIMES DAILY 1 tablet 2 TIMES DAILY (route: oral) Med Classific ation: Hematolog ical Agents hydralazine 50 mg tablet 03-07 00:00: 00 03-15 23:59 :00 No [id number] HTN 1 tablet 2 TIMES DAILY 1 tablet 2 TIMES DAILY (route: oral) Med Classific ation: Cardiovas cular Therapy Agents omeprazole 20 mg capsule,del ayed release 03-06 00:00: 00 03-15 23:59 :00 No [id number] GERD 1 capsule DAILY 1 capsule DAILY (route: oral) Med Classific ation: Gastroint estinal Therapy Agents sodium bicarbonate 650 mg tablet 03-07 00:00: 00 03-15 23:59 :00 No [id number] SUPPLEMENT 2 tablet 3 TIMES DAILY 2 tablet 3 TIMES DAILY (route: oral) Med Classific ation: Gastroint estinal Therapy Agents Vancocin 125 mg capsule 03-07 00:00: 00 05-28 23:59 :00 No [id number] CDIFF 1 capsule 4 TIMES DAILY 1 capsule 4 TIMES DAILY (route: oral) Med Classific ation: Anti-Infe ctive Agents Tresiba FlexTouch U-100 insulin 100 unit/mL (3 mL) subcutaneou s pen 04-14 00:00: 00 07-29 23:59 :00 No [id number] DIABETES 8 unit 2 TIMES DAILY 8 unit 2 TIMES DAILY (route: subcutaneo us) Med Classific ation: Endocrine atorvastati n 80 mg tablet 05-28 00:00: 00 03-15 23:59 :00 No [id number] CHOLESTEROL 1 tablet BEDTIME 1 tablet BEDTIME (route: oral) Med Classific ation: Cardiovas cular Therapy Agents Calcium with Vitamin D 600 mg-10 mcg (400 unit) tablet 05-28 00:00: 00 03-15 23:59 :00 No [id number] SUPPLEMENT 1 tablet DAILY 1 tablet DAILY (route: oral) Med Classific ation: Electroly te Balance-N utritiona l Products lisinopril 2.5 mg tablet 05-28 00:00: 00 03-15 23:59 :00 No [id number] B.OOD PRESSURE 1 tablet DAILY 1 tablet DAILY (route: oral) Med Classific ation: Cardiovas cular Therapy Agents Novolog Flexpen U-100 Insulin aspart 100 unit/mL (3 mL) subcutaneou s 05-28 00:00: 00 03-15 23:59 :00 No [id number] DM 4-10 unit 3 TIMES DAILY 4-10 unit 3 TIMES DAILY (route: subcutaneo us) Med Classific ation: Endocrine methenamine hippurate 1 gram tablet 7- 00:00: 00 03-15 23:59 :00 No [id number] . 1 tablet DAILY 1 tablet DAILY (route: oral) Alternate Route: BY MOUTH. Med Classific ation: Genitouri nary Therapy allopurinol 100 mg tablet 07-07 00:00: 00 03-15 23:59 :00 No [id number] GOUT 2 tablet DAILY 2 tablet DAILY (route: oral) Med Classific ation: Gout and Hyperuric emia Therapy alpha lipoic acid 300 mg capsule 07-07 00:00: 00 03-15 23:59 :00 No [id number] SUPPLEMENT 1 capsule 2 TIMES DAILY 1 capsule 2 TIMES DAILY (route: oral) Med Classific ation: Alternati ve Therapy amoxicillin 500 mg-potassiu m clavulanate 125 mg tablet 07-05 00:00: 00 07-09 23:59 :00 No [id number] WOUND INFECTION 1 tablet 2 TIMES DAILY 1 tablet 2 TIMES DAILY (route: oral) Med Classific ation: Anti-Infe ctive Agents bumetanide 1 mg tablet 07-07 00:00: 00 03-15 23:59 :00 No [id number] EDEMA 1 tablet DAILY 1 tablet DAILY (route: oral) Med Classific ation: Cardiovas cular Therapy Agents calcitriol 0.25 mcg capsule 07-07 00:00: 00 03-15 23:59 :00 No [id number] SUPPLEMENT 1 capsule EVERY OTHER DAY 1 capsule EVERY OTHER DAY (route: oral) Med Classific ation: Electroly te Balance-N utritiona l Products Ferretts 325 mg (106 mg iron) tablet 07-07 00:00: 00 03-15 23:59 :00 No [id number] SUPPLEMENT 1 tablet DAILY 1 tablet DAILY (route: oral) Med Classific ation: Electroly te Balance-N utritiona l Products Vascepa 1 gram capsule 07-07 00:00: 00 03-15 23:59 :00 No [id number] CHOLESTEROL 2 capsule 2 TIMES DAILY 2 capsule 2 TIMES DAILY (route: oral) Med Classific ation: Cardiovas cular Therapy Agents Tresiba FlexTouch U-100 insulin 100 unit/mL (3 mL) subcutaneou s pen 07-29 00:00: 00 03-15 23:59 :00 No [id number] DM 16 unit BEDTIME 16 unit BEDTIME (route: subcutaneo ) Med Classific ation: Endocrine bumetanide 1 mg tablet 03-15 00:00: 00 03-19 00:00 :00 No [id number] Per instruc tions Per instructio ns (route: oral) Med Classific ation: Cardiovas cular Therapy Agents levothyroxi ne 112 mcg tablet 03-14 00:00: 00 11-28 00:00 :00 No [id number] THYROID 1 tablet DAILY 1 tablet DAILY (route: oral) Med Classific ation: Endocrine amlodipine 10 mg tablet 03-07 00:00: 00 Yes [id number] HTN 1 tablet DAILY 1 tablet DAILY (route: oral) Med Classific ation: Cardiovas cular Therapy Agents cefpodoxime 200 mg tablet 03-07 00:00: 00 03-19 00:00 :00 No [id number] Per instruc tions Per instructio ns (route: oral) Med Classific ation: Anti-Infe ctive Agents atorvastati n 20 mg tablet 03-02 00:00: 00 03-19 00:00 :00 No [id number] Per instruc tions EVERY DAY Per instructio ns EVERY DAY (route: oral) Med Classific ation: Cardiovas cular Therapy Agents lisinopril 2.5 mg tablet 03-02 00:00: 00 03-19 00:00 :00 No [id number] Per instruc tions DAILY FOR 180 DAYS Per instructio ns DAILY FOR 180 DAYS (route: oral) Med Classific ation: Cardiovas cular Therapy Agents Vascepa 1 gram capsule 03-02 00:00: 00 04-13 23:59 :00 No [id number] HLD 2 capsule 2 TIMES DAILY 2 capsule 2 TIMES DAILY (route: oral) Med Classific ation: Cardiovas cular Therapy Agents hydralazine 50 mg tablet 03-01 00:00: 00 03-19 00:00 :00 No [id number] Per instruc tions 2 TIMES DAILY Per instructio ns 2 TIMES DAILY (route: oral) Med Classific ation: Cardiovas cular Therapy Agents metoprolol succinate ER 100 mg tablet,exte nded release 24 hr 03-01 00:00: 00 03-19 00:00 :00 No [id number] Per instruc tions EVERY DAY Per instructio ns EVERY DAY (route: oral) Med Classific ation: Cardiovas cular Therapy Agents amlodipine 5 mg tablet 02-21 00:00: 00 03-19 00:00 :00 No [id number] Per instruc tions EVERY DAY Per instructio ns EVERY DAY (route: oral) Med Classific ation: Cardiovas cular Therapy Agents Tresiba FlexTouch U-100 insulin 100 unit/mL (3 mL) [facility] s pen 02-14 00:00: 00 04-13 23:59 :00 No [id number] DM2 50 unit BEDTIME 50 unit [facility]TIME [facility] Med Classific ation: Endocrine atorvastati n 40 mg tablet 03-19 00:00: 00 04-13 23:59 :00 No [id number] HLD 1 tablet BEDTIME 1 tablet BEDTIME (route: oral) Med Classific ation: Cardiovas cular Therapy Agents calcitriol 0.25 mcg capsule 03-19 00:00: 00 04-13 23:59 :00 No [id number] BONE HEALTH 1 capsule EVERY OTHER DAY 1 capsule EVERY OTHER DAY (route: oral) Med Classific ation: Electroly te Balance-N utritiona l Products Calcium 500 + D 500 mg-10 mcg (400 unit) tablet 03-19 00:00: 00 04-13 23:59 :00 No [id number] VITAMIN 1 tablet DAILY 1 tablet DAILY (route: oral) Med Classific ation: Electroly te Balance-N utritiona l Products Colace 100 mg capsule 03-19 00:00: 00 08-30 00:00 :00 No [id number] CONSTIPATIO N 1 capsule 2 TIMES DAILY 1 capsule 2 TIMES DAILY (route: oral) Med Classific ation: Gastroint estinal Therapy Agents cyclosporin e 0.05 % eye drops in a dropperette 03-19 00:00: 00 08-30 00:00 :00 No [id number] EYE DROP Per instruc tions DAILY Per instructio ns DAILY (route: ophthalmic (eye)) Med Classific ation: Ophthalmi c Agents Eliquis 5 mg tablet 03-19 00:00: 00 11-28 00:00 :00 No [id number] AFIB 1 tablet 2 TIMES DAILY 1 tablet 2 TIMES DAILY (route: oral) Med Classific ation: Hematolog ical Agents gabapentin 100 mg capsule 03-19 00:00: 00 04-13 23:59 :00 No [id number] NEUROPATHY 2 capsule 2 TIMES DAILY 2 capsule 2 TIMES DAILY (route: oral) Med Classific ation: Central Nervous System Agents hydralazine 100 mg tablet 03-19 00:00: 00 08-30 00:00 :00 No [id number] HTN 1 tablet 3 TIMES DAILY 1 tablet 3 TIMES DAILY (route: oral) Med Classific ation: Cardiovas cular Therapy Agents Miralax 17 gram/dose oral powder 03-19 00:00: 00 08-30 00:00 :00 No [id number] CONSTIPATIO N 17 gram DAILY 17 gram DAILY (route: oral) Med Classific ation: Gastroint estinal Therapy Agents pantoprazol e 40 mg tablet,deuce yed release 03-19 00:00: 00 08-30 00:00 :00 No [id number] GERD 1 tablet DAILY 1 tablet DAILY (route: oral) Med Classific ation: Gastroint estinal Therapy Agents thiamine HCl (vitamin B1) 100 mg tablet 03-19 00:00: 00 04-13 23:59 :00 No [id number] VITAMIN 1 tablet DAILY 1 tablet DAILY (route: oral) Med Classific ation: Electroly te Balance-N utritiona l Products Toprol XL 100 mg tablet,exte nded release 03-19 00:00: 00 08-30 00:00 :00 No [id number] BETA SHARDA 125 mg DAILY 125 mg DAILY (route: oral) Med Classific ation: Cardiovas cular Therapy Agents acetaminoph en 325 mg tablet 03-19 00:00: 00 Yes [id number] pain 2 tablet EVERY 4 HOURS 2 tablet EVERY 4 HOURS (route: oral) Med Classific ation: Analgesic , Anti-infl ammatory or Antipyret ic alpha lipoic acid 200 mg capsule 04-13 00:00: 00 08-30 00:00 :00 No [id number] SUPPLEMENT 2 capsule BEDTIME 2 capsule BEDTIME (route: oral) Med Classific ation: Alternati ve Therapy atorvastati n 80 mg tablet 04-13 00:00: 00 Yes [id number] HLD 1 tablet BEDTIME 1 tablet BEDTIME (route: oral) Med Classific ation: Cardiovas cular Therapy Agents bumetanide 1 mg tablet 04-13 00:00: 00 08-30 00:00 :00 No [id number] DIURETIC 1 tablet 4 TIMES A WEEK 1 tablet 4 TIMES A WEEK (route: oral) Med Classific ation: Cardiovas cular Therapy Agents calcitriol 0.25 mcg capsule 04-13 00:00: 00 08-30 00:00 :00 No [id number] SUPPLEMENT 1 capsule 4 TIMES A WEEK 1 capsule 4 TIMES A WEEK (route: oral) Med Classific ation: Electroly te Balance-N utritiona l Products Calcium 600 mg calcium (1,500 mg) tablet 04-13 00:00: 00 11-28 00:00 :00 No [id number] SUPPLEMENT 1 tablet DAILY 1 tablet DAILY (route: oral) Med Classific ation: Electroly te Balance-N utritiona l Products ferrous sulfate 325 mg (65 mg iron) tablet 04-13 00:00: 00 Yes [id number] ANEMIA 1 tablet DAILY 1 tablet DAILY (route: oral) Med Classific ation: Electroly te Balance-N utritiona l Products gabapentin 100 mg capsule 04-13 00:00: 00 08-30 00:00 :00 No [id number] NEUROPATHY 4 capsule BEDTIME 4 capsule BEDTIME (route: oral) Med Classific ation: Central Nervous System Agents magnesium glycinate 100 mg capsule 04-13 00:00: 00 11-28 00:00 :00 No [id number] SUPPLEMENT 2 capsule BEDTIME 2 capsule BEDTIME (route: oral) Med Classific ation: Electroly te Balance-N utritiona l Products sodium bicarbonate 650 mg tablet 04-13 00:00: 00 08-30 00:00 :00 No [id number] SUPPLEMENT 2 tablet 3 TIMES DAILY 2 tablet 3 TIMES DAILY (route: oral) Med Classific ation: Gastroint estinal Therapy Agents Tresiba FlexTouch U-100 insulin 100 unit/mL (3 mL) subcutaneou s pen 04-13 00:00: 00 Yes [id number] DM 35 unit EVERY PM 35 unit EVERY PM (route: subcutaneo us) Med Classific ation: Endocrine Vascepa 1 gram capsule 04-13 00:00: 00 Yes [id number] DYSLIPIDEMI A 1 capsule 2 TIMES DAILY 1 capsule 2 TIMES DAILY (route: oral) Med Classific ation: Cardiovas cular Therapy Agents Vitamin B-12 50 mcg tablet 04-13 00:00: 00 Yes [id number] SUPPLEMENT 1 tablet DAILY 1 tablet DAILY (route: oral) Med Classific ation: Electroly te Balance-N utritiona l Products Vitamin C 250 mg tablet 04-13 00:00: 00 Yes [id number] SUPPLEMENT 2 tablet 2 TIMES DAILY 2 tablet 2 TIMES DAILY (route: oral) Med Classific ation: Electroly te Balance-N utritiona l Products Vitamin D3 50 mcg (2,000 unit) tablet 04-13 00:00: 00 Yes [id number] SUPPLEMENT 1 tablet DAILY 1 tablet DAILY (route: oral) Med Classific ation: Electroly te Balance-N utritiona l Products Augmentin 500 mg-125 mg tablet 2024-0 6-20 00:00: 00 05-29 23:59 :00 No UTI 1 tablet 2 TIMES DAILY 1 tablet 2 TIMES DAILY (route: oral) Med Classific ation: Anti-Infe ctive Agents alpha lipoic acid 600 mg tablet 2023-11 00:00: 00 Yes [id number] NEUROPATHY 2 tablet BEDTIME 2 tablet BEDTIME (route: oral) Med Classific ation: Alternati ve Therapy bumetanide 1 mg tablet 2023-11 00:00: 00 Yes [id number] EDEMA 1 tablet 4 TIMES A WEEK 1 tablet 4 TIMES A WEEK (route: oral) Med Classific ation: Cardiovas cular Therapy Agents gabapentin 600 mg tablet 2023-11 00:00: 00 11-28 00:00 :00 No [id number] PAIN 1 tablet BEDTIME 1 tablet BEDTIME (route: oral) Med Classific ation: Central Nervous System Agents Lastacaft Once Daily Relief 0.25 % eye drops 2023-11 00:00: 00 Yes [id number] DRY EYES 1 drops DAILY 1 drops DAILY (route: ophthalmic (eye)) Med Classific ation: Ophthalmi c Agents Novolog FlexPen U-100 Insulin aspart 100 unit/mL (3 mL) [facility] 2023-11 00:00: 00 Yes [id number] DM 2 unit 3 TIMES DAILY 2 unit 3 TIMES DAILY ([facility] Med Classific ation: Endocrine Novolog FlexPen U-100 Insulin aspart 100 unit/mL (3 mL) [facility] 2023-11 00:00: 00 Yes [id number] DM 4 unit 3 TIMES DAILY 4 unit 3 TIMES DAILY ([facility] Med Classific ation: Endocrine Novolog FlexPen U-100 Insulin aspart 100 unit/mL (3 mL) [facility] 2023-11 00:00: 00 Yes [id number] DM 6 unit 3 TIMES DAILY 6 unit 3 TIMES DAILY (route: [facility]) Med Classific ation: Endocrine omeprazole 40 mg capsule,del ayed release 2023-11 00:00: 00 11-28 00:00 :00 No [id number] GERD 1 capsule DAILY 1 capsule DAILY (route: oral) Med Classific ation: Gastroint estinal Therapy Agents Probiotic (S.boulardi i) 250 mg capsule 2023-11 0 00:00: 00 Yes [id number] GUT HEALTH 1 capsule DAILY 1 capsule DAILY (route: oral) Med Classific ation: Gastroint estinal Therapy Agents levothyroxi ne 125 mcg tablet 2023-11 00:00: 00 Yes HYPOTHYROID ISM 1 tablet EVERY AM 1 tablet EVERY AM (route: oral) Med Classific ation: Endocrine gabapentin 600 mg tablet 2023-11 00:00: 00 11-28 00:00 :00 No Per instruc tions Per instructio ns (route: oral) Med Classific ation: Central Nervous System Agents ondansetron 4 mg disintegrat ing tablet 2023-11 00:00: 00 11-28 00:00 :00 No Per instruc tions EVERY 8 HOURS NEEDED Per instructio ns EVERY 8 HOURS NEEDED (route: oral) Med Classific ation: Gastroint estinal Therapy Agents oxycodone 5 mg tablet 2023-11 00:00: 00 11-28 00:00 :00 No Per instruc tions EVERY 4 TO 6 HOURS NEEDED Per instructio ns EVERY 4 TO 6 HOURS NEEDED (route: oral) Med Classific ation: Analgesic , Anti-infl ammatory or Antipyret ic Tresiba FlexTouch U-100 insulin 100 unit/mL (3 mL) subcutaneou s pen 2023-11 00:00: 00 11-28 00:00 :00 No Per instruc tions Per instructio ns (route: [facility]) Med Classific ation: Endocrine metoprolol succinate ER 100 mg tablet,exte nded release 24 hr 2023-11 00:00: 00 12-04 17:44 :53 No HTN 1 tablet DAILY 1 tablet DAILY (route: oral) Med Classific ation: Cardiovas cular Therapy Agents clonidine HCl 0.1 mg tablet 2023-11 00:00: 00 Yes HTN 1 tablet 2 TIMES DAILY 1 tablet 2 TIMES DAILY (route: oral) Med Classific ation: Cardiovas cular Therapy Agents Eliquis 2.5 mg tablet 2023-11 00:00: 00 Yes ANTICOAGULA TION 1 tablet 2 TIMES DAILY 1 tablet 2 TIMES DAILY (route: oral) Med Classific ation: Hematolog ical Agents gabapentin 300 mg capsule 2023-11 00:00: 00 Yes NEUROPATHY 1 capsule DAILY 1 capsule DAILY (route: oral) Med Classific ation: Central Nervous System Agents hydralazine 25 mg tablet 2023-11 00:00: 00 Yes HTN 3 tablet 4 TIMES DAILY 3 tablet 4 TIMES DAILY (route: oral) Med Classific ation: Cardiovas cular Therapy Agents omeprazole 20 mg capsule,del ayed release 2023-11 00:00: 00 Yes GERD 1 capsule DAILY 1 capsule DAILY (route: oral) Med Classific ation: Gastroint estinal Therapy Agents sodium bicarbonate 650 mg tablet 2023-11 00:00: 00 Yes KIDNEYS 1 tablet 2 TIMES DAILY 1 tablet 2 TIMES DAILY (route: oral) Med Classific ation: Gastroint estinal Therapy Agents tramadol 50 mg tablet 2023-11 00:00: 00 Yes PAIN 1 tablet EVERY 6 HOURS 1 tablet EVERY 6 HOURS (route: oral) Med Classific ation: Analgesic , Anti-infl ammatory or Antipyret ic metoprolol succinate ER 100 mg tablet,exte nded release 24 hr 1-06 00:00: 00 Yes HTN 0.5 tablet DAILY 0.5 tablet DAILY (route: oral) Med Classific ation: Cardiovas cular Therapy Agents Vital Signs Vital Name Observation Time Observation Value Commen ts Temperature 2025-01-01 12:26:00.000 97.2 [degF] Temperature 2024-12-28 11:02:00.000 97.1 [degF] Temperature 2024-12-26 13:32:00.000 98.4 [degF] Temperature 2024-12-21 13:30:00.000 97.1 [degF] Temperature 2024-12-20 16:19:00.000 97.4 [degF] Temperature 2024 09:22:00.000 97.7 [degF] Temperature 2024-12-13 11:46:00.000 97.2 [degF] Temperature 2024-12-12 14:06:00.000 97.6 [degF] Temperature 2024-12-12 12:42:00.000 97.1 [degF] Temperature 2024-12-07 14:24:00.000 97.1 [degF] Temperature 2024-12-06 11:53:00.000 97.7 [degF] Temperature 2024-12-05 14:04:00.000 97.5 [degF] Temperature 2024-12-04 15:51:00.000 97 [degF] Temperature 2024-12-01 10:44:00.000 97.9 [degF] Temperature 2024-11-28 14:33:00.000 97.7 [degF] Height 2024-11-28 14:07:40.000 65 [in_us] Pulse 2025-01-01 12:26:00.000 60 /min Pulse 2024-12-28 11:02:00.000 85 /min Pulse 2024-12-26 13:32:00.000 61 /min Pulse 2024-12-21 13:30:00.000 65 /min Pulse 2024-12-20 16:20:00.000 73 /min Pulse 2024 09:22:00.000 52 /min Pulse 2024-12-13 11:46:00.000 80 /min Pulse 2024-12-12 14:06:00.000 50 /min Pulse 2024-12-12 12:42:00.000 57 /min Pulse 2024-12-07 14:25:00.000 54 /min Pulse 2024-12-06 11:53:00.000 51 /min Pulse 2024-12-05 14:04:00.000 60 /min Pulse 2024-12-04 15:51:00.000 68 /min Pulse 2024-12-01 10:44:00.000 52 /min Pulse 2024-11-28 14:33:00.000 50 /min O2 Saturation (%) 2024-12-28 11:02:00.000 97 % O2 Saturation (%) 2024-12-26 13:32:00.000 96 % O2 Saturation (%) 2024-12-21 13:30:00.000 98 % O2 Saturation (%) 2024-12-20 16:19:00.000 96 % O2 Saturation (%) 2024 09:22:00.000 98 % O2 Saturation (%) 2024-12-12 14:06:00.000 98 % O2 Saturation (%) 2024-12-07 14:24:00.000 96 % O2 Saturation (%) 2024-12-06 11:53:00.000 98 % O2 Saturation (%) 2024-12-05 14:04:00.000 97 % O2 Saturation (%) 2024-12-04 15:51:00.000 97 % O2 Saturation (%) 2024-12-01 10:44:00.000 96 % O2 Saturation (%) 2024-11-28 14:33:00.000 99 % Respirations 2025-01-01 12:26:00.000 18 /min Respirations 2024-12-28 11:02:00.000 16 /min Respirations 2024-12-26 13:32:00.000 16 /min Respirations 2024-12-21 13:30:00.000 16 /min Respirations 2024-12-20 16:20:00.000 16 /min Respirations 2024 09:22:00.000 16 /min Respirations 2024-12-13 11:46:00.000 18 /min Respirations 2024-12-12 14:06:00.000 16 /min Respirations 2024-12-12 12:42:00.000 16 /min Respirations 2024-12-07 14:24:00.000 16 /min Respirations 2024-12-06 11:53:00.000 16 /min Respirations 2024-12-05 14:04:00.000 16 /min Respirations 2024-12-04 15:51:00.000 16 /min Respirations 2024-12-01 10:44:00.000 18 /min Respirations 2024-11-28 14:33:00.000 18 /min Weight (lbs) 2024-11-28 14:08:13.000 0.1 [lb_av] Systolic Blood Pressure 2025-01-01 12:26:00.000 110 mm [Hg] Systolic Blood Pressure 2024-12-28 11:08:00.000 130 mm [Hg] Systolic Blood Pressure 2024-12-26 13:32:00.000 144 mm [Hg] Systolic Blood Pressure 2024-12-21 13:30:00.000 140 mm [Hg] Systolic Blood Pressure 2024-12-20 16:20:00.000 141 mm [Hg] Systolic Blood Pressure 2024 09:22:00.000 122 mm [Hg] Systolic Blood Pressure 2024-12-13 11:46:00.000 100 mm [Hg] Systolic Blood Pressure 2024-12-12 14:06:00.000 130 mm [Hg] Systolic Blood Pressure 2024-12-12 12:42:00.000 130 mm [Hg] Systolic Blood Pressure 2024-12-07 14:24:00.000 130 mm [Hg] Systolic Blood Pressure 2024-12-06 11:53:00.000 142 mm [Hg] Systolic Blood Pressure 2024-12-05 14:04:00.000 110 mm [Hg] Systolic Blood Pressure 2024-12-04 15:51:00.000 140 mm [Hg] Systolic Blood Pressure 2024-12-01 10:44:00.000 146 mm [Hg] Systolic Blood Pressure 2024-11-28 14:33:00.000 118 mm [Hg] Diastolic Blood Pressure 2025-01-01 12:26:00.000 62 mm [Hg] Diastolic Blood Pressure 2024-12-28 11:08:00.000 64 mm [Hg] Diastolic Blood Pressure 2024-12-26 13:32:00.000 58 mm [Hg] Diastolic Blood Pressure 2024-12-21 13:30:00.000 60 mm [Hg] Diastolic Blood Pressure 2024-12-20 16:20:00.000 70 mm [Hg] Diastolic Blood Pressure 2024 09:22:00.000 58 mm [Hg] Diastolic Blood Pressure 2024-12-13 11:46:00.000 62 mm [Hg] Diastolic Blood Pressure 2024-12-12 14:06:00.000 76 mm [Hg] Diastolic Blood Pressure 2024-12-12 12:42:00.000 58 mm [Hg] Diastolic Blood Pressure 2024-12-07 14:24:00.000 52 mm [Hg] Diastolic Blood Pressure 2024-12-06 11:53:00.000 60 mm [Hg] Diastolic Blood Pressure 2024-12-05 14:04:00.000 60 mm [Hg] Diastolic Blood Pressure 2024-12-04 15:51:00.000 68 mm [Hg] Diastolic Blood Pressure 2024-12-01 10:44:00.000 50 mm [Hg] Diastolic Blood Pressure 2024-11-28 14:33:00.000 54 mm [Hg] Plan of Treatment Planned Activity Planned Date Details Comments Future Scheduled Test PHYSICAL T HERAPIST TO EVALUATE FOR HOME EXERCISE PROGRAM [code = PHYSICAL THERAPIST TO EVALUATE FOR HOME EXERCISE PROGRAM ] Future Scheduled Test OCCUPATION AL THERAPIST TO EVALUATE FOR ADLS [code = OCCUPATIONAL THERAPIST TO EVALUATE FOR ADLS] Future Scheduled Test MEDICATION MANAGEMENT; RN/DRAPERY INSPECTOR/APPLICATIONS SALES REPRESENTATIVE TO REVIEW MEDICATIONS FOR INTERACTIONS, EFFECTIVENESS OF DRUG THERAPY, AND SIGNS/SYMPTOMS OF ADVERSE REACTIONS. MAY INSTRUCT AND REINFORCE MEDICATION TEACHING RELATED TO THE USE OF MEDICATIONS, DOSAGE, FREQUENCY, PURPOSE, SIDE EFFECTS, AND TO REPORT COMPLICATIONS. [code = MEDICATION MANAGEMENT; RN/DRAPERY INSPECTOR/APPLICATIONS SALES REPRESENTATIVE TO REVIEW MEDICATIONS FOR INTERACTIONS, EFFECTIVENESS OF DRUG THERAPY, AND SIGNS/SYMPTOMS OF ADVERSE REACTIONS. MAY INSTRUCT AND REINFORCE MEDICATION TEACHING RELATED TO THE USE OF MEDICATIONS, DOSAGE, FREQUENCY, PURPOSE, SIDE EFFECTS, AND TO REPORT COMPLICATIONS.] Future Scheduled Test ANTICOAGUL ATION MANAGEMENT; RN TO ASSESS AND TEACH, DRAPERY INSPECTOR/APPLICATIONS SALES REPRESENTATIVE TO OBSERVE/TEACH/MONITOR EFFECTIVENESS OF ANTICOAGULATION THERAPY. RN/DRAPERY INSPECTOR/APPLICATIONS SALES REPRESENTATIVE TO INSTRUCT ON SIGNS AND SYMPTOMS OF BLEEDING/ADVERSE REACTIONS TO REPORT TO PHYSICIAN. [code = ANTICOAGULATION MANAGEMENT; RN TO ASSESS AND TEACH, DRAPERY INSPECTOR/APPLICATIONS SALES REPRESENTATIVE TO OBSERVE/TEACH/MONITOR EFFECTIVENESS OF ANTICOAGULATION THERAPY. RN/DRAPERY INSPECTOR/APPLICATIONS SALES REPRESENTATIVE TO INSTRUCT ON SIGNS AND SYMPTOMS OF BLEEDING/ADVERSE REACTIONS TO REPORT TO PHYSICIAN. ] Future Scheduled Test FALL REDUC TION MANAGEMENT; RN TO ASSESS AND OBSERVE, DRAPERY INSPECTOR/APPLICATIONS SALES REPRESENTATIVE TO OBSERVE FALL RISK FACTORS AND EDUCATE PATIENT/CAREGIVER ON STRATEGIES TO MINIMIZE THE RISK OF FALLING. [code = FALL REDUCTION MANAGEMENT; RN TO ASSESS AND OBSERVE, DRAPERY INSPECTOR/APPLICATIONS SALES REPRESENTATIVE TO OBSERVE FALL RISK FACTORS AND EDUCATE PATIENT/CAREGIVER ON STRATEGIES TO MINIMIZE THE RISK OF FALLING.] Future Scheduled Test DIABETES M ANAGEMENT; RN TO ASSESS AND TEACH, APPLICATIONS SALES REPRESENTATIVE/DRAPERY INSPECTOR TO OBSERVE AND TEACH INSTRUCTIONS OF DIABETIC CARE TO INCLUDE: DIET,DIABETIC SKIN CARE, SIGNS AND SYMPTOMS OF HYPO/HYPERGLYCEMIA, PROPER ADMINISTRATION OF DIABETIC MEDICATION. RN/APPLICATIONS SALES REPRESENTATIVE/DRAPERY INSPECTOR TO INSTRUCT ON DIABETIC FOOT CARE AND MONITOR FOR SKIN LESIONS ON LOWER EXTREMITIES. BLOOD GLUCOSE TESTING VIA DEXCOM RN TO ASSESS AND TEACH, APPLICATIONS SALES REPRESENTATIVE/DRAPERY INSPECTOR TO OBSERVE AND TEACH PATIENT/CAREGIVER ABILITY TO PERFORM AND RECORD BLOOD GLUCOSE TESTING ORDERED AND TO REPORT ABNORMAL FINDINGS TO PHYSICIAN. RN/APPLICATIONS SALES REPRESENTATIVE/DRAPERY INSPECTOR MAY PERFORM BLOOD GLUCOSE TEST NEEDED. RN/APPLICATIONS SALES REPRESENTATIVE/DRAPERY INSPECTOR TO REPORT TO PHYSICIAN BLOOD GLUCOSE READINGS GREATER THAN 350 OR LESS THAN 70 RN/APPLICATIONS SALES REPRESENTATIVE/DRAPERY INSPECTOR TO INSTRUCT PATIENT ON IMPORTANCE OF HGBA1C MONITORING, KIDNEY FUNCTION TEST, EYE AND FOOT EXAMS. [code = DIABETES MANAGEMENT; RN TO ASSESS AND TEACH, APPLICATIONS SALES REPRESENTATIVE/DRAPERY INSPECTOR TO OBSERVE AND TEACH INSTRUCTIONS OF DIABETIC CARE TO INCLUDE: DIET,DIABETIC SKIN CARE, SIGNS AND SYMPTOMS OF HYPO/HYPERGLYCEMIA, PROPER ADMINISTRATION OF DIABETIC MEDICATION. RN/APPLICATIONS SALES REPRESENTATIVE/DRAPERY INSPECTOR TO INSTRUCT ON DIABETIC FOOT CARE AND MONITOR FOR SKIN LESIONS ON LOWER EXTREMITIES. BLOOD GLUCOSE TESTING VIA DEXCOM RN TO ASSESS AND TEACH, APPLICATIONS SALES REPRESENTATIVE/DRAPERY INSPECTOR TO OBSERVE AND TEACH PATIENT/CAREGIVER ABILITY TO PERFORM AND RECORD BLOOD GLUCOSE TESTING ORDERED AND TO REPORT ABNORMAL FINDINGS TO PHYSICIAN. RN/APPLICATIONS SALES REPRESENTATIVE/DRAPERY INSPECTOR MAY PERFORM BLOOD GLUCOSE TEST NEEDED. RN/APPLICATIONS SALES REPRESENTATIVE/DRAPERY INSPECTOR TO REPORT TO PHYSICIAN BLOOD GLUCOSE READINGS GREATER THAN 350 OR LESS THAN 70 RN/APPLICATIONS SALES REPRESENTATIVE/DRAPERY INSPECTOR TO INSTRUCT PATIENT ON IMPORTANCE OF HGBA1C MONITORING, KIDNEY FUNCTION TEST, EYE AND FOOT EXAMS.] Future Scheduled Test RN TO OBSE RVE, ASSESS, EVALUATE, AND DEVELOP AN INDIVIDUALIZED PLAN OF CARE. AGENCY MAY ACCEPT ORDERS FROM CONSULTING PHYSICIANS. RN TO OBSERVE AND ASSESS, DRAPERY INSPECTOR/APPLICATIONS SALES REPRESENTATIVE TO OBSERVE FOR RISK FOR FALLS AND INSTRUCT IN FALL PREVENTION, HOME SAFETY, MEDICATION MANAGEMENT, INFECTION PREVENTION, AND NUTRITION MANAGEMENT. RN/DRAPERY INSPECTOR/APPLICATIONS SALES REPRESENTATIVE NURSE MAY PERFORM O2 SATURATION LEVEL ON ADMISSION AND PRN FOR RN TO ASSESS/DRAPERY INSPECTOR TO OBSERVE PATIENT, WITH NOTIFICATION TO THE PHYSICIAN IF SATURATION IS 90% IN THE ABSENCE OF MORE SPECIFIC PARAMETERS FROM THE PHYSICIAN. AGENCY MAY PERFORM A RESUMPTION OF CARE VISIT FOLLOWING ANY HOSPITAL ADMISSION. RN/DRAPERY INSPECTOR/APPLICATIONS SALES REPRESENTATIVE TO MONITOR CO-MORBID CONDITIONS LISTED ON THE PLAN OF CARE AND ANY NEW CONDITIONS THAT PRESENT THEMSELVES DURING THIS EPISODE TO IDENTIFY CHANGES AND INTERVENE TO MINIMIZE COMPLICATIONS. [code = RN TO OBSERVE, ASSESS, EVALUATE, AND DEVELOP AN INDIVIDUALIZED PLAN OF CARE. AGENCY MAY ACCEPT ORDERS FROM CONSULTING PHYSICIANS. RN TO OBSERVE AND ASSESS, DRAPERY INSPECTOR/APPLICATIONS SALES REPRESENTATIVE TO OBSERVE FOR RISK FOR FALLS AND INSTRUCT IN FALL PREVENTION, HOME SAFETY, MEDICATION MANAGEMENT, INFECTION PREVENTION, AND NUTRITION MANAGEMENT. RN/DRAPERY INSPECTOR/APPLICATIONS SALES REPRESENTATIVE NURSE MAY PERFORM O2 SATURATION LEVEL ON ADMISSION AND PRN FOR RN TO ASSESS/DRAPERY INSPECTOR TO OBSERVE PATIENT, WITH NOTIFICATION TO THE PHYSICIAN IF SATURATION IS 90% IN THE ABSENCE OF MORE SPECIFIC PARAMETERS FROM THE PHYSICIAN. AGENCY MAY PERFORM A RESUMPTION OF CARE VISIT FOLLOWING ANY HOSPITAL ADMISSION. RN/DRAPERY INSPECTOR/APPLICATIONS SALES REPRESENTATIVE TO MONITOR CO-MORBID CONDITIONS LISTED ON THE PLAN OF CARE AND ANY NEW CONDITIONS THAT PRESENT THEMSELVES DURING THIS EPISODE TO IDENTIFY CHANGES AND INTERVENE TO MINIMIZE COMPLICATIONS.] Future Scheduled Test GASTROINTE STINAL MANAGEMENT; RN TO ASSESS AND TEACH, APPLICATIONS SALES REPRESENTATIVE/DRAPERY INSPECTOR TO OBSERVE AND TEACH RELATED TO ALTERED GASTROINTESTINAL STATUS TO MINIMIZE COMPLICATIONS AND REDUCE HOSPITALIZATION. [code = GASTROINTESTINAL MANAGEMENT; RN TO ASSESS AND TEACH, APPLICATIONS SALES REPRESENTATIVE/DRAPERY INSPECTOR TO OBSERVE AND TEACH RELATED TO ALTERED GASTROINTESTINAL STATUS TO MINIMIZE COMPLICATIONS AND REDUCE HOSPITALIZATION.] Future Scheduled Test PAIN MANAG EMENT; RN TO ASSESS AND TEACH, APPLICATIONS SALES REPRESENTATIVE/DRAPERY INSPECTOR TO OBSERVE AND TEACH AND PROVIDE EDUCATION ON PAIN MANAGEMENT TECHNIQUES. [code = PAIN MANAGEMENT; RN TO ASSESS AND TEACH, APPLICATIONS SALES REPRESENTATIVE/DRAPERY INSPECTOR TO OBSERVE AND TEACH AND PROVIDE EDUCATION ON PAIN MANAGEMENT TECHNIQUES.] Future Scheduled Test RISK FOR H OSPITALIZATION; RN TO ASSESS/TEACH, APPLICATIONS SALES REPRESENTATIVE/DRAPERY INSPECTOR TO OBSERVE/TEACH PATIENT/CAREGIVER ON RISK FOR HOSPITALIZATION/EMERGENCY ROOM VISITS, TEACH SIGNS AND SYMPTOMS THAT PUT PATIENT AT RISK, WHEN TO NOTIFY NURSE/PHYSICIAN OF COMPLICATIONS/DECLINE, AND WHEN TO CALL 911. [code = RISK FOR HOSPITALIZATION; RN TO ASSESS/TEACH, APPLICATIONS SALES REPRESENTATIVE/DRAPERY INSPECTOR TO OBSERVE/TEACH PATIENT/CAREGIVER ON RISK FOR HOSPITALIZATION/EMERGENCY ROOM VISITS, TEACH SIGNS AND SYMPTOMS THAT PUT PATIENT AT RISK, WHEN TO NOTIFY NURSE/PHYSICIAN OF COMPLICATIONS/DECLINE, AND WHEN TO CALL 911.] Future Scheduled Test CARDIOVASC ULAR SYSTEM; RN TO ASSESS/TEACH, DRAPERY INSPECTOR/APPLICATIONS SALES REPRESENTATIVE TO OBSERVE/TEACH RELATED TO ALTERED CARDIOVASCULAR STATUS TO MINIMIZE COMPLICATIONS AND REDUCE HOSPITALIZATION. [code = CARDIOVASCULAR SYSTEM; RN TO ASSESS/TEACH, DRAPERY INSPECTOR/APPLICATIONS SALES REPRESENTATIVE TO OBSERVE/TEACH RELATED TO ALTERED CARDIOVASCULAR STATUS TO MINIMIZE COMPLICATIONS AND REDUCE HOSPITALIZATION.] Future Scheduled Test HYPERTENSI ON MANAGEMENT; RN TO ASSESS AND TEACH, DRAPERY INSPECTOR/APPLICATIONS SALES REPRESENTATIVE TO OBSERVE AND TEACH WARNING SIGNS AND SYMPTOMS TO AVOID HOSPITALIZATION. [code = HYPERTENSION MANAGEMENT; RN TO ASSESS AND TEACH, DRAPERY INSPECTOR/APPLICATIONS SALES REPRESENTATIVE TO OBSERVE AND TEACH WARNING SIGNS AND SYMPTOMS TO AVOID HOSPITALIZATION.] Future Scheduled Test SKIN INTEG RITY : HAS CAST TO RLE FOLLOWING SURGERY TO RT FOOT RN TO ASSESS AND TEACH, DRAPERY INSPECTOR/APPLICATIONS SALES REPRESENTATIVE TO OBSERVE AND TEACH INTEGUMENTARY STATUS TO IDENTIFY CHANGES AND INTERVENE TO MINIMIZE COMPLICATIONS. PROVIDE SKILLED TEACHING OF GENERAL WOUND AND SKIN CARE AND PREVENTION RELATED TO POTENTIAL FOR OR ACTUAL ALTERED SKIN INTEGRITY [code = SKIN INTEGRITY : HAS CAST TO RLE FOLLOWING SURGERY TO RT FOOT RN TO ASSESS AND TEACH, DRAPERY INSPECTOR/APPLICATIONS SALES REPRESENTATIVE TO OBSERVE AND TEACH INTEGUMENTARY STATUS TO IDENTIFY CHANGES AND INTERVENE TO MINIMIZE COMPLICATIONS. PROVIDE SKILLED TEACHING OF GENERAL WOUND AND SKIN CARE AND PREVENTION RELATED TO POTENTIAL FOR OR ACTUAL ALTERED SKIN INTEGRITY ] Future Scheduled Test AGENCY MAY PERFORM A RESUMPTION OF CARE VISIT FOLLOWING ANY HOSPITAL ADMISSION. PT TO EVALUATE, OBSERVE / ASSESS, AND MONITOR, PRODUCT SAFETY TECHNICIAN TO OBSERVE AND MONITOR, PROVIDE SKILLED THERAPEUTIC INTERVENTION, ACTIVITY, EDUCATION, AND TRAINING TO ADDRESS; PT/PRODUCT SAFETY TECHNICIAN TO PROVIDE GAIT TRAINING FOR IMPROVED MOBILITY AND /OR TO NORMALIZE GAIT PATTERN NEUROMUSCULAR RE-EDUCATION / BALANCE / POSTURAL CONTROL (PT) THERAPEUTIC EXERCISES AND ESTABLISHING A HOME EXERCISE PROGRAM (PT/PRODUCT SAFETY TECHNICIAN) PT/PRODUCT SAFETY TECHNICIAN TO PROVIDE STAIR TRAINING CHAIR TRANSFERS (PT/PRODUCT SAFETY TECHNICIAN) PT TO ASSESS / PRODUCT SAFETY TECHNICIAN TO MONITOR FOR AND REPORT EARLY SIGNS OF ANTICOAGULANT TOXICITY TO THE PHYSICIAN AND/OR THE RN CLINICAL SHELL SIEVE OPERATOR FOR PHYSICIAN NOTIFICATION AND TO PROVIDE PATIENT/CAREGIVER EDUCATION ON ANTICOAGULANT THERAPY PT / PRODUCT SAFETY TECHNICIAN TO MONITOR FOR HYPO/HYPERGLYCEMIA AND CONDUCT ROUTINE FOOT INSPECTIONS. RECORD PATIENT REPORTED BLOOD SUGAR LEVELS AND NOTIFY PHYSICIAN AND/OR THE RN CLINICAL SHELL SIEVE OPERATOR FOR PHYSICIAN NOTIFICATION IF BLOOD SUGAR LEVELS ARE OUTSIDE ORDERED PARAMETERS. TEACH PATIENT/CAREGIVER ON DAILY FOOT INSPECTIONS PT/PRODUCT SAFETY TECHNICIAN TO IDENTIFY FALL RISK FACTORS; EDUCATE THE PATIENT/CAREGIVER ON WAYS TO REDUCE FALL RISK FACTORS AND ESTABLISH HOME EXERCISE PROGRAM TO MINIMIZE FALL RISK. MAY TEACH THE PATIENT FLOOR RECOVERY WHEN CLINICALLY APPROPRIATE [code = AGENCY MAY PERFORM A RESUMPTION OF CARE VISIT FOLLOWING ANY HOSPITAL ADMISSION. PT TO EVALUATE, OBSERVE / ASSESS, AND MONITOR, PRODUCT SAFETY TECHNICIAN TO OBSERVE AND MONITOR, PROVIDE SKILLED THERAPEUTIC INTERVENTION, ACTIVITY, EDUCATION, AND TRAINING TO ADDRESS; PT/PRODUCT SAFETY TECHNICIAN TO PROVIDE GAIT TRAINING FOR IMPROVED MOBILITY AND /OR TO NORMALIZE GAIT PATTERN NEUROMUSCULAR RE-EDUCATION / BALANCE / POSTURAL CONTROL (PT) THERAPEUTIC EXERCISES AND ESTABLISHING A HOME EXERCISE PROGRAM (PT/PRODUCT SAFETY TECHNICIAN) PT/PRODUCT SAFETY TECHNICIAN TO PROVIDE STAIR TRAINING CHAIR TRANSFERS (PT/PRODUCT SAFETY TECHNICIAN) PT TO ASSESS / PRODUCT SAFETY TECHNICIAN TO MONITOR FOR AND REPORT EARLY SIGNS OF ANTICOAGULANT TOXICITY TO THE PHYSICIAN AND/OR THE RN CLINICAL SHELL SIEVE OPERATOR FOR PHYSICIAN NOTIFICATION AND TO PROVIDE PATIENT/CAREGIVER EDUCATION ON ANTICOAGULANT THERAPY PT / PRODUCT SAFETY TECHNICIAN TO MONITOR FOR HYPO/HYPERGLYCEMIA AND CONDUCT ROUTINE FOOT INSPECTIONS. RECORD PATIENT REPORTED BLOOD SUGAR LEVELS AND NOTIFY PHYSICIAN AND/OR THE RN CLINICAL SHELL SIEVE OPERATOR FOR PHYSICIAN NOTIFICATION IF BLOOD SUGAR LEVELS ARE OUTSIDE ORDERED PARAMETERS. TEACH PATIENT/CAREGIVER ON DAILY FOOT INSPECTIONS PT/PRODUCT SAFETY TECHNICIAN TO IDENTIFY FALL RISK FACTORS; EDUCATE THE PATIENT/CAREGIVER ON WAYS TO REDUCE FALL RISK FACTORS AND ESTABLISH HOME EXERCISE PROGRAM TO MINIMIZE FALL RISK. MAY TEACH THE PATIENT FLOOR RECOVERY WHEN CLINICALLY APPROPRIATE] Future Scheduled Test AGENCY MAY PERFORM A RESUMPTION OF CARE VISIT FOLLOWING ANY HOSPITAL ADMISSION. OT TO EVALUATE, OBSERVE / ASSESS, AND MONITOR, SHWETHA TO OBSERVE AND MONITOR, PROVIDE SKILLED THERAPEUTIC INTERVENTION, ACTIVITY, EDUCATION, AND TRAINING TO ADDRESS; PERSONAL HYGIENE/GROOMING (OT/SHWETHA) BATHING/SHOWERING (OT/HOT PLATE [place]YWOOD PRESS OPERATOR) DRESSING (OT/SHWETHA) ACTIVITIES OF DAILY LIVING (OT/SHWETHA) MEAL PREPARATION AND CLEANUP (OT/HOT PLATE [place] PRESS OPERATOR) TOILET TRANSFER (OT/SHWETHA) BATH/SHOWER TRANSFER (OT/SHWETHA) ITEM RETRIEVAL AND TRANSPORTATION (OT/HOT PLATE [employer] PRESS OPERATOR) POSTURAL CONTROL/BALANCE (OT/HOT PLATE [employer] PRESS OPERATOR) THERAPEUTIC EXERCISE (OT/HOT PLATE [employer] PRESS OPERATOR) ENERGY CONSERVATION/ACTIVITY DEMAND (OT/SHWETHA) OT/SHWETHA TO MONITOR AND EDUCATE ON OXYGEN SATURATION DURING ADLS/IADLS, NOTIFY PHYSICIAN AND/OR THE RN CLINICAL SHELL SIEVE OPERATOR FOR PHYSICIAN NOTIFICATION AND IF O2 SATS BELOW 90% AFTER 10 MIN OF REST. OT / HOT PLATE [place] PRESS OPERATOR TO IDENTIFY FALL RISK FACTORS; EDUCATE THE PATIENT/CAREGIVER ON WAYS TO REDUCE FALL RISK FACTORS AND ESTABLISH HOME EXERCISE PROGRAM TO MINIMIZE FALL RISK. MAY TEACH THE PATIENT FLOOR RECOVERY WHEN CLINICALLY APPROPRIATE. [code = AGENCY MAY PERFORM A RESUMPTION OF CARE VISIT FOLLOWING ANY HOSPITAL ADMISSION. OT TO EVALUATE, OBSERVE / ASSESS, AND MONITOR, SHWETHA TO OBSERVE AND MONITOR, PROVIDE SKILLED THERAPEUTIC INTERVENTION, ACTIVITY, EDUCATION, AND TRAINING TO ADDRESS; PERSONAL HYGIENE/GROOMING (OT/HOT PLATE [employer] PRESS OPERATOR) BATHING/SHOWERING (OT/HOT PLATE [employer] PRESS OPERATOR) DRESSING (OT/HOT PLATE [employer] PRESS OPERATOR) ACTIVITIES OF DAILY LIVING (OT/SHWETHA) MEAL PREPARATION AND CLEANUP (OT/SHWETHA) TOILET TRANSFER (OT/SHWETHA) BATH/SHOWER TRANSFER (OT/HOT PLATE [employer] PRESS OPERATOR) ITEM RETRIEVAL AND TRANSPORTATION (OT/SHWETHA) POSTURAL CONTROL/BALANCE (OT/HOT PLATE [employer] PRESS OPERATOR) THERAPEUTIC EXERCISE (OT/SHWETHA) ENERGY CONSERVATION/ACTIVITY DEMAND (OT/SHWETHA) OT/SHWETHA TO MONITOR AND EDUCATE ON OXYGEN SATURATION DURING ADLS/IADLS, NOTIFY PHYSICIAN AND/OR THE RN CLINICAL SHELL SIEVE OPERATOR FOR PHYSICIAN NOTIFICATION AND IF O2 SATS BELOW 90% AFTER 10 MIN OF REST. OT / HOT PLATE PLYWOOD PRESS OPERATOR TO IDENTIFY FALL RISK FACTORS; EDUCATE THE PATIENT/CAREGIVER ON WAYS TO REDUCE FALL RISK FACTORS AND ESTABLISH HOME EXERCISE PROGRAM TO MINIMIZE FALL RISK. MAY TEACH THE PATIENT FLOOR RECOVERY WHEN CLINICALLY APPROPRIATE.] Goal Patient Goal - T O BE MORE INDEPENDENT, TO HEAL RIGHT FOOT Goal Provider Goal - Goal Provider Goal - Goal Provider Goal - PATIENT/CAREGIVER TO VERBALIZE, AND CONSISTENTLY DEMONSTRATE EFFECTIVE, SAFE MANAGEMENT OF MEDICATION INCLUDING KNOWLEDGE OF EFFECTIVENESS, POTENTIAL SIDE EFFECTS AND DRUG REACTIONS AND WHEN TO CONTACT THE APPROPRIATE CARE PROVIDER. PATIENT/CAREGIVER WILL BE ABLE TO VERBALIZE UNDERSTANDING OF MEDICATION REGIMEN AND ACCURATELY TAKE MEDICATIONS PRESCRIBED WITHOUT ADVERSE EFFECTS BY EOE Goal Provider Goal - INEFFECTIVE ANTICOAGULATION THERAPY WILL BE IDENTIFIED AND PROMPTLY REPORTED TO THE PHYSICIAN. PATIENT / CAREGIVER WILL VERBALIZE UNDERSTANDING OF MEASURES TO MAINTAIN EFFECTIVE ANTICOAGULATION THERAPY BY EOE Goal Provider Goal - PATIENT/CAREGIVER WILL VERBALIZE/DEMONSTRATE UNDERSTANDING OF FALL RISK FACTORS AND IMPLEMENT STRATEGIES TO MINIMIZE FALL RISK. PATIENT/CAREGIVER WILL VERBALIZE/DEMONSTRATE AN ABILITY TO ADHERE TO FALL REDUCTION SELF-MANAGEMENT AND LIFE-STYLE CHANGES BY EOE Goal Provider Goal - PATIENT / CAREGIVER WILL VERBALIZE / DEMONSTRATE AN ABILITY TO ADHERE TO SELF-MANAGEMENT OF DIABETES MANAGEMENT BY EOE Goal Provider Goal - A PLAN OF CARE WILL BE ESTABLISHED THAT MEETS THE PATIENTS NEEDS. PATIENT WILL DEMONSTRATE OXYGEN SATURATION WITHIN NORMAL LIMITS OR PATIENTS OPTIMAL LEVEL ESTABLISHED BY THE PHYSICIAN THROUGHOUT CARE. CHANGES TO CO-MORBID CONDITIONS AND ANY NEW CONDITIONS WILL BE IDENTIFIED AND REPORTED TO THE PHYSICIAN. Goal Provider Goal - PATIENT / CAREGIVER WILL VERBALIZE/DEMONSTRATE UNDERSTANDING OF MEASURES TO MANAGE ALTERED GASTROINTESTINAL STATUS BY END OF EPISODE. Goal Provider Goal - PATIENT / CAREGIVER WILL VERBALIZE / DEMONSTRATE UNDERSTANDING OF PAIN CONTROL MEASURES BY EOE Goal Provider Goal - PATIENT/CAREGIVER WILL VERBALIZE UNDERSTANDING OF SIGNS AND SYMPTOMS THAT PUT THE PATIENT AT RISK FOR HOSPITALIZATION /EMERGENCY ROOM VISITS, WHEN TO NOTIFY NURSE/PHYSICIAN OF COMPLICATIONS/DECLINE AND WHEN TO CALL 911. Goal Provider Goal - PATIENT / CAREGIVER WILL VERBALIZE/DEMONSTRATE UNDERSTANDING OF MEASURES TO MANAGE ALTERED CARDIOVASCULAR STATUS BY EOE Goal Provider Goal - PATIENT / CAREGIVER WILL VERBALIZE/DEMONSTRATE AN ABILITY TO ADHERE TO SELF-MANAGEMENT OF HTN TO MINIMIZE COMPLICATIONS AND AVOID HOSPITALIZATION BY END OF EPISODE. Goal Provider Goal - CHANGES IN SKIN INTEGRITY STATUS WILL BE IDENTIFIED AND REPORTED TO THE PHYSICIAN FOR PROMPT INTERVENTION. PATIENT / CAREGIVER WILL VERBALIZE/DEMONSTRATE ADEQUATE KNOWLEDGE OF INTEGUMENTARY STATUS AND APPROPRIATE MEASURES TO PROMOTE SKIN INTEGRITY AND PREVENT INJURY BY EOE Goal Provider Goal - PT LTG: PATIENT WILL DEMONSTRATE IMPROVED AMBULATION FROM MIN A TO INDEPENDENT WITHIN 9 WEEKS PT LTG: PATIENT WILL DEMONSTRATE IMPROVE STAIR SKILLS FROM MINIMAL ASSISTANCE TO INDEPENDENT WITHIN 9 WEEKS TO ALLOW PATIENT TO GET TO AND FROM CAR INDEPENDENTLY. PT LTG: PATIENT WILL DEMONSTRATE INCREASED STRENGTH OF BILAT LES FROM 3+ TO 4/5 WITHIN 9 WEEKS IN ORDER TO RETURN TO INDEPENDENT TRANSFER AND AMBULATION SKILLS. PT STG: PATIENT WILL DEMONSTRATE IMPROVED ABILITY TO PERFORM CHAIR TRANSFERS TO REDUCE THE RISK OF SKIN BREAKDOWN AND FALL RISK FROM CGA TO INDEPENDENT WITHIN 4 WEEKS. PT LTG: PATIENT WILL NOT EXHIBIT SIGNS AND SYMPTOMS OF ANTICOAGULANT TOXICITY THROUGHOUT EPISODE OF CARE. PATIENTS BLOOD SUGAR WILL REMAIN WELL CONTROLLED WITH SELF-MANAGEMENT THROUGHOUT EPISODE OF CARE. PT LTG: PATIENT/CAREGIVER WILL DEMONSTRATE ADHERENCE TO FALL REDUCTION SELF-MANAGEMENT AND REDUCING FALL RISK FACTORS TO MINIMIZE FALL RISK BY END OF EPISODE. PT LTG: PATIENT WILL BE INDEPENDENT WITH IMPLEMENTATION OF HEP WITHIN 4 WEEKS. Goal Provider Goal - OT STG: PATIENT WILL DEMONSTRATE IMPROVED ABILITY TO PERFORM PERSONAL HYGIENE AND GROOMING FROM MOD A TO MODIFIED INDEPENDENCE WITH SAFE TECHNIQUE WITHIN 5 WEEKS. OT LTG: PATIENT WILL DEMONSTRATE IMPROVED ABILITY TO PERFORM BATHING IN THE SHOWER WITH ADAPTIVE EQUIPMENT AND UTILIZING ENERGY CONSERVATION AND WORK SIMPLIFICATION TECHNIQUES FROM MOD A TO SBA WITH DECREASED FEAR OF FALLING WITHIN 8 WEEKS. OT LTG: PATIENT WILL DEMONSTRATE IMPROVED ABILITY TO PERFORM SHOWER TRANSFER FROM MOD A/ TO MODIFIED INDEPENDENCE UTILIZING GRABARS WITHIN 6 WEEKS. OT STG: PATIENT WILL DEMONSTRATE IMPROVED ABILITY TO PERFORM TOILET TRANSFER FROM MOD A TO MODIFIED INDEPENDENT UTILIZING LRD WITHIN 5 WEEKS OT STG: PATIENT WILL DEMONSTRATE IMPROVED ABILITY TO PERFORM /LB DRESSING INCLUDING ITEM RETRIEVAL FROM MOD A TO TO INDEPENDENCE UTILIZING ADAPTIVE EQUIPMENT NEEDED WITHIN 6 WEEKS OT LTG: PATIENT WILL DEMONSTRATE IMPROVED INDEPENDENCE WITH ACTIVITIES OF DAILY LIVING (ADL) SKILLS EVIDENCED BY AN IMPROVEMENT IN MODIFIED LIANA INDEX SCORE FROM 45/100 TO 70/100 INDICATING DECREASED DEPENDENCY ON CAREGIVER ASSISTANCE WITHIN 8 WEEKS. OT LTG: PATIENT WILL DEMONSTRATE THE ABILITY TO COMPLETE LIGHT BREAKFAST MEAL AND BEVERAGE PREPARATION AND CLEANUP FROM UNABLE TO MODIFIED INDEPENDENCE UTILIZING ADAPTIVE EQUIPMENT NEEDED IN INCORPORATING ENERGY CONSERVATION AND WORK SIMPLIFICATION TECHNIQUES INTO TASK WITHIN 8 WEEKS OT LTG: PATIENT WILL DEMONSTRATE DECREASED FALL RISK EVIDENCED BY AN IMPROVEMENT IN FUNCTIONAL REACH SCORE FROM 5 INCHES TO 8 INCHES FOR IMPROVED ADL/IADL COMPLETION AND HOME SAFETY BY DISCHARGE WITHIN 8 WEEKS OT LTG: PATIENT WILL DEMONSTRATE IMPROVED BUE MUSCLE POWER EVIDENCED BY AN IMPROVEMENT IN MMT FROM 3+/5 TO 4 /5 AND BE INDEPENDENT WITH LIGHT HEP FOR INCREASED STRENGTH AND ACTIVITY TOLERANCE WITH ADLS WITHIN 8 WEEKS. OT LTG: PATIENT WILL BE ABLE TO SAFELY RETRIEVE AND TRANSPORT ITEMS FROM UNABLE TO MODIFIED INDEPENDENCE USING ADAPTIVE EQUIPMENT IN ORDER TO MAKE BREAKFAST MEAL SAFELY AND TRANSFER HOT LIQUIDS WITHIN 8 WEEKS OT LTG: PATIENT WILL MAINTAIN OXYGEN SATURATION WITHIN PHYSICIAN ORDERED PARAMETERS THROUGHOUT THE EPISODE OF CARE. OT LTG: PATIENT/CAREGIVER WILL BE ABLE TO IMPLEMENT RECOMMENDATIONS SPECIFIC TO FALL REDUCTION FOR IMPROVED ADL/IADL COMPLETION AND HOME SAFETY BY END OF EPISODE. Encounters Start Date/Time End Date/Time Encounter Type Admission Type Attending [facility] Care Department Encounter ID Discharge Date Discharge Status Discharge Condition Discharge Reason Percent Goals Met 2024-11-28 00:00:00 2025-01-26 00:00:00 Outpatient [facility] [id number] 10.4 2
--- OUTSIDE RECORDS SUMMARY | 2025-01-19 08:44 | XMS_ITS | Encounter Summary ---
Author Organization [facility] [place] [address] Care Team Providers Care Touring Production Manager Name Role Phone Anil Bettencourt MD Primary Care Provider [phone] Encounter Details Date Type Department Care Team ([facility] st Contact Info) Description 12/01/2024 Telephone Adult Medicine [facility] [address] [place] [phone] Anil Bettencourt MD [address] [place] [address] Social History Tobacco Use Types Packs/Day Years [...] your loved ones. For example, child care nurse or elderly care for an older adult? [...] AM EST Office Visit Adult Medicine - [facility] [address] [place] [phone] Katharine Wadsworth MD [address] [place] [address] 03/27/2025 1:45 PM EDT Office Visit Nephrology - [facility] [address] [place] [phone] Joel Colvin MD [address] [place] [phone] documented as of this encounter Visit Diagnoses Not on filedocumented in this encounter Additional Health Concerns Infection Onset Date Last Indicated Resolved Time Gastrointestinal Rule-Out 11/30/2024 11/30/2024 7:06 PM EST Assessment Noted Time PHQ-9 Depression Total Score: 0 10/30/20 24 10:57 PM EST documented as of this encounter Care Teams Touring Production Manager Relationship Specialty Start Date End Date Anil Bettencourt MD [address] [place] [address] PCP - General 08/02/01 documented as of this encounter
--- OUTSIDE RECORDS SUMMARY | 2025-01-19 08:44 | XMS_ITS | Encounter Summary ---
Author Organization [facility] Address [address] [place] [address] Care Team Providers Care Weight Calculator Name Role Phone Anil Bettencourt MD Primary Care Provider [phone] Encounter Details Date Type Department Care Team ([facility] Contact Info) Description 11/11/2024 Lab Requisition [facility] - Main Lab [address] [place] [address] Horace Solomon MD [address] [place] [phone] Encounter for other general examination Social History [...] for your loved ones. For example, school child care attendant or elderly care for an older [...] AM EST Office Visit Adult Medicine - [facility] [address] [place] [phone] Katharine Wadsworth MD [address] [place] [address] 03/27/2025 1:45 PM EDT [facility] [address] [place] [phone] Joel Colvin MD [address] [place] [phone] documented as of this encounter Procedures Procedure Name Priority Date/Time Associated Diagnosis Comments CBC WITH AUTO DIFFERENTIAL Routine 11/11/2024 6:47 AM EST Encounter for other general examination CBC AND DIFFERENTIAL Routine 11/11/2024 6:47 AM EST Encounter for other general examination MAGNESIUM Routine 11/11/2024 6:47 AM EST Encounter for other general examination HEMOGLOBIN A1C Routine 11/11/2024 6:47 AM EST Encounter for other general examination COMPREHENSIVE METABOLIC PANEL Routine 11/11/2024 6:47 AM EST Encounter for other general examination documented in this encounter Results * (ABNORMAL) CBC auto differential (11/11/2024 6:47 AM EST) WBC 7.5 4.8 - 10.8 K/mcL LAB HEMETOLOGY METHOD 11/11/2024 1:40 PM EST [facility] RBC 3.20(L) 3.80 - 4.80 M/mcL LAB HEMETOLOGY METHOD 11/11/2024 1:40 PM EST [facility] Hemoglobin 9.7(L) 11.5 - 16.0 g/dL LAB HEMETOLOGY METHOD 11/11/2024 1:40 PM [facility] Hematocrit 30.3(L) 35.0 - 47.0 % LAB HEMETOLOGY METHOD 11/11/2024 1:40 PM [facility] MCV 93.5 79.0 - 98.0 FL LAB HEMETOLOGY METHOD 11/11/2024 1:40 PM [facility] MCH 29.9 27.0 - 32.0 pcg LAB HEMETOLOGY METHOD 11/11/2024 1:40 PM [facility] MCHC 32.0 32.0 - 37.0 g/dL LAB HEMETOLOGY METHOD 11/11/2024 1:40 PM [facility] RDW 13.3 11.0 - 15.0 % LAB HEMETOLOGY METHOD 11/11/2024 1:40 PM [facility] Platelets 313 130 - 400 K/mcL LAB HEMETOLOGY METHOD 11/11/2024 1:40 PM [facility] MPV 10.5 7.0 - 11.0 FL LAB HEMETOLOGY METHOD 11/11/2024 1:40 PM [facility] NRBC 0.0 <1.0 % LAB HEMETOLOGY METHOD 11/11/2024 1:40 PM [facility] NRBC Absolute 0.00 <0.10 K/mcL LAB HEMETOLOGY METHOD 11/11/2024 1:40 PM [facility] Neutrophils Relative 75.5 % LAB HEMETOLOGY METHOD 11/11/2024 1:40 PM [facility] Lymphocytes Relative 10.7 % LAB HEMETOLOGY METHOD 11/11/2024 1:40 PM [facility] Monocytes Relative 9.9 % LAB HEMETOLOGY METHOD 11/11/2024 1:40 PM [facility] Eosinophils Relative 1.5 % LAB HEMETOLOGY METHOD 11/11/2024 1:40 PM EST [facility] Basophils Relative 1.1 % LAB HEMETOLOGY METHOD 11/11/2024 1:40 PM EST [facility] Immature Granulocytes Relative 1.3 % LAB HEMETOLOGY METHOD 11/11/2024 1:40 PM EST [facility] Neutrophils Absolute 5.64 1.50 - 7.00 K/mcL LAB HEMETOLOGY METHOD 11/11/2024 1:40 PM EST [facility] Lymphocytes Absolute 0.80(L) 1.00 - 5.00 K/mcL LAB HEMETOLOGY METHOD 11/11/2024 1:40 PM EST [facility] Monocytes Absolute 0.74 0.20 - 1.00 K/mcL LAB HEMETOLOGY METHOD 11/11/2024 1:40 PM EST [facility] Eosinophils Absolute 0.11 0.00 - 0.50 K/mcL LAB HEMETOLOGY METHOD 11/11/2024 1:40 PM EST [facility] Basophils Absolute 0.08 0.00 - 0.20 K/mcL LAB HEMETOLOGY METHOD 11/11/2024 1:40 PM EST [facility] Immature Granulocytes Absolute 0.10(H) 0.00 - 0.03 K/mcL LAB HEMETOLOGY METHOD 11/11/2024 1:40 PM EST [facility] Blood Venous blood specimen / Unknown Venipuncture / Unknown 11/11/2024 6:47 AM EST 11/11/2024 10:56 AM EST us Horace Solomon MD LAB BLOOD ORDERABLES Final Res ult [facility] [address] [place] [address], * (ABNORMAL) Hemoglobin A1c (11/11/2024 6:47 AM EST) Hemoglobin A1C 6.7(H) <6.5 % LAB CHEMISTRY METHOD 11/12/2024 8:18 AM EST [facility] Mean Bld Glu Estim. 146 mg/dL LAB CHEMISTRY METHOD 11/12/2024 8:18 AM EST [facility] Blood Venous blood specimen / Unknown Venipuncture / Unknown 11/11/2024 6:47 AM EST 11/11/2024 10:56 AM EST Horace Solomon MD LAB BLOOD ORDERABLES Final Res ult [facility] [address] [place] [address], [place] [phone] * (ABNORMAL) Magnesium (11/11/2024 6:47 AM EST) Magnesium 1.7(L) 1.9 - 2.6 mg/dL LAB CHEMISTRY METHOD 11/11/2024 12:37 PM EST [facility] Blood Venous blood specimen / Unknown Venipuncture / Unknown 11/11/2024 6:47 AM EST 11/11/2024 10:56 AM EST Horace Solomon MD LAB BLOOD ORDERABLES Final Res ult [facility] [address] [place] [address], [place] [phone] * (ABNORMAL) Comprehensive metabolic panel (11/11/2024 6:47 AM EST) Sodium 141 133 - 145 mmol/L LAB CHEMISTRY METHOD 11/11/2024 12:37 PM EST [facility] Potassium 4.2 3.5 - 5.5 mmol/L LAB CHEMISTRY METHOD 11/11/2024 12:37 PM EST [facility] Chloride 107 96 - 110 mmol/L LAB CHEMISTRY METHOD 11/11/2024 12:37 PM [facility] CO2 23 21 - 32 mmol/L LAB CHEMISTRY METHOD 11/11/2024 12:37 PM [facility] Anion Gap 11 3 - 11 LAB CHEMISTRY METHOD 11/11/2024 12:37 PM [facility] Glucose 147(H) 70 - 100 mg/dL LAB CHEMISTRY METHOD 11/11/2024 12:37 PM [facility] BUN 63(H) 5 - 25 mg/dL LAB CHEMISTRY METHOD 11/11/2024 12:37 PM [facility] Creatinine 3.11(H) 0.50 - 1.10 mg/dL LAB CHEMISTRY METHOD 11/11/2024 12:37 PM [facility] eGFR 15(L) >=60 mL/min/1. 73m2 LAB CHEMISTRY METHOD 11/11/2024 12:37 PM [facility] Comment:Calculation based on the??Chronic Kidney Disease Epidemiology Collaboration (CKD-EPI) equation refit??without adjustment for race. BUN/Creatinine Ratio 20.3 LAB CHEMISTRY METHOD 11/11/2024 12:37 PM [facility] Calcium 8.6 8.5 - 10.5 mg/dL LAB CHEMISTRY METHOD 11/11/2024 12:37 PM [facility] AST (SGOT) 11 10 - 42 unit/L LAB CHEMISTRY METHOD 11/11/2024 12:37 PM [facility] ALT (SGPT) 6(L) 10 - 60 unit/L LAB CHEMISTRY METHOD 11/11/2024 12:37 PM [facility] Alkaline Phosphatase 134(H) 42 - 121 unit/L LAB CHEMISTRY METHOD 11/11/2024 12:37 PM [facility] Total Protein 6.7 6.0 - 8.0 g/dL LAB CHEMISTRY METHOD 11/11/2024 12:37 PM [facility] Albumin 3.1(L) 3.2 - 5.0 g/dL LAB CHEMISTRY METHOD 11/11/2024 12:37 PM EST [facility] Total Bilirubin 1.0 0.0 - 1.4 mg/dL LAB CHEMISTRY METHOD 11/11/2024 12:37 PM EST [facility] Blood Venous blood specimen / Unknown Venipuncture / Unknown 11/11/2024 6:47 AM EST 11/11/2024 10:56 AM EST us Horace Solomon MD LAB BLOOD ORDERABLES Final Res ult [facility] [address] [place] [address], documented in this encounter Visit Diagnoses Diagnosis Encounter for other general examination documented in this encounter Additional Health Concerns Infection Onset Date Last Indicated Resolved Time Respiratory Rule-Out 11/26/2024 11/26/2024 024 6:03 PM EST Gastrointestinal Rule-Out 11/30/2024 11/30/2024 7:06 PM EST Assessment Noted Time PHQ-9 Depression Total Score: 0 10/30/20 10:57 PM EST documented as of this encounter Care Teams Weight Calculator Relationship Specialty Start Date End Date Anil Bettencourt MD [address] [place] [id number] PCP - General 08/02/01 documented as of this encounter
--- OUTSIDE RECORDS SUMMARY | 2025-01-19 08:44 | XMS_ITS | Clinical Summary ---
Author Organization [facility] Address [address] [place], [place] [address] Phone Care Team Providers Care Raw Silk Grader Name Role Phone Anil Bettencourt MD Primary Care Provider [phone] Allergies Active Allergy Reactions Criticality Noted Date Comments Adhesive Photosensitivity 08/31/2024 Surgical tape Flurandrenolide Rash 02/03/2022 Iodinated Contrast Media 10/23/2024 Poor kidney function Nitrofurantoin 08/31/2024 Nitrofurantoin Monohyd/M-Cryst Rash 02/03/2022 Other reaction(s): rash on face Medications ACETAMINOPHEN ORAL Take 2 Tablets by mouth 2 times daily. Active alpha lipoic acid 200 mg tablet 600 mg at bedtime. Active ascorbic acid (VITAMIN C) 250 mg tablet Take 2 tablets (500 mg total) by mouth 2 (two) times a day. Active bumetanide (BUMEX) 1 mg tablet Take 1 tablet (1 mg total) by mouth every other day. Active CALCIUM CARBONATE ORAL Take 1 Tablet by mouth daily. Active cholecalciferol (VITAMIN D-3) 25 mcg (1,000 unit) capsule Take 2 Caps by mouth daily. 05/10/20 13 Active blood-glucose meter,continuou s misc 1 Device by Does not apply route See Admin Instructions. To monitor sugars - Does not apply Active CYANOCOBALAMIN, VITAMIN B-12, ORAL Take 50 mg by mouth. Active ferrous sulfate 325 mg (65 mg elemental iron) tablet Take 1 tablet (325 mg total) by mouth 1 (one) time each day. Active insulin aspart (NovoLOG U-100 Insulin aspart) 100 unit/mL injection Sliding scale Active insulin aspart (NovoLOG) 100 unit/mL injection Inject 1 Units as directed 3 times daily (before meals). 1 unit per 10 g carbohydrate plus sliding scale Sliding scale is as follows: 1:50 >150 150-200: 1 unit 201-250: 2 units 251-300: 3 units 301-350: 4 units >351-: 5 units 05/03/20 24 Active insulin degludec (Tresiba FlexTouch U-100) 100 unit/mL (3 mL) injection pen 34 Units at bedtime. 10/11/20 23 Active lifitegrast (Xiidra) 5 % dropperette apply 2 Drops to the eye 2 times daily. Active MAGNESIUM GLUCONATE ORAL Take 200 mg by mouth at bedtime. Active multivitamin (MULTIPLE VITAMINS ORAL) Brain health 1 daily Active sodium bicarbonate 650 mg tablet TAKE 2 TABLETS BY MOUTH 3 TIMES DAILY FOR 360 DAYS. 03/14/20 24 025 Active apixaban (ELIQUIS) 2.5 mg tablet Take 1 tablet (2.5 mg total) by mouth 2 (two) times a day. Active icosapent ethyL (Vascepa) 1 gram capsule Take 2 capsules (2 g total) by mouth 2 (two) times a day with meals. Active omeprazole (PriLOSEC) [address] capsule Take 1 capsule (40 mg total) by mouth 1 (one) time each day. Do not crush or chew. Active levothyroxine (SYNTHROID, LEVOTHROID) 125 mcg tablet Take 1 tablet (125 mcg total) by mouth 1 (one) time each day. 90 each 1 11/15/20 24 Active amLODIPine (NORVASC) 10 mg tablet TAKE 1 TABLET BY MOUTH EVERY DAY 90 tablet 1 12/07/19 25 Active gabapentin (NEURONTIN) 300 mg capsule Take 1 capsule (300 mg total) by mouth at bedtime. at bedtime Active atorvastatin (LIPITOR) 80 mg tablet Take 1 tablet (80 mg total) by mouth 1 (one) time each day. 90 each 1 12/05/19 25 025 Active metoprolol succinate (TOPROL-XL) 50 mg 24 hr tablet Take 1 tablet (50 mg total) by mouth 1 (one) time each day. Do not crush or chew. 90 each 1 12/05/19 25 025 Active Additional Information Patient not taking.Reported on 2024 hydrALAZINE (APRESOLINE) 50 mg tablet Take 1 tablet (50 mg total) by mouth 3 (three) times a day. 270 tablet 12/27/19 25 Active cloNIDine (CATAPRES) 0.1 mg tablet Take 1 tablet (0.1 mg total) by mouth 2 (two) times a day. 180 each 3 01/01/20 25 026 Active hydrALAZINE (APRESOLINE) 50 mg tablet Take 1 tablet (50 mg total) by mouth 4 (four) times a day. 04/10/20 24 025 Discontin ued(Reord er) cloNIDine (CATAPRES) 0.1 mg tablet Take 1 tablet (0.1 mg total) by mouth 2 (two) times a day. 025 Discontin ued(Reord er) Active Problems Problem Noted Date Diagnosed Date CKD (chronic kidney disease) stage 4, GFR 15-29 ml/min 2024 Atrial fibrillation 03/26/2022 Assessment & Plan (10/23/2024 12:41 PM EST): The patient does not have any evidence of recent paroxysmal atrial fibrillation. She has been maintained on low-dose Eliquis without problem or evident bleeding. Eliquis can be interrupted for surgery but I would recommend that the patient be maintained on low-dose aspirin particularly when she is off of her Eliquis given her rather extensive atherosclerotic cardiovascular disease. Orders: ECG 12 lead Obstructive sleep apnea 01/29/2022 Overview (08/31/2024): [facility] diagnostic polysomnogram 01/13/2022. Weight 166; BMI 28.AHI 19; REM AHI 31. 2 central apneas, 5 obstructive apneas, 129 hypopneas. Average oxygen saturation 90% and oxygen robinson 77%. PLM's 44. Obstructive sleep apnea: Moderate overall and severe in rem with mostly hypopneas and nocturnal hypoxemia with PLMD based on 2021 diagnostic polysomnogram. Appears ordering provider was Dr. Sullivan who manages [facility]. CPAP Assessment & Plan (10/23/2024 12:41 PM EST): Treated. Memory loss 12/25/2021 Overview (08/31/2024): Neuropsych 12/20 Mild cog impairment only 06/21. depression Coronary arteriosclerosis 02/18/2021 Overview (08/31/2024): Coronary arteriosclerosis Anemia 06/30/2017 Hyperkalemia 06/17/2017 Overview (08/31/2024): 06/14- sent to ER, level was 6.9 Coronary artery disease 08/05/2016 Overview (08/31/2024): hosp 07/14 chest pain. . mibi abnormal. PTCA RCA [place] Assessment & Plan (10/23/2024 12:41 PM EST): Patient has known coronary artery disease with history of stenting. She has not been having any clinical evidence of angina pectoris. Orders: ECG 12 lead Ascending aorta dilatation 07/13/2016 Overview (08/31/2024): 3.7 cm by echo 07/14. CT 1 yr 09/14 echo normal aorta. Mild diastolic dysfunction. Normal EF Stasis eczema 08/26/2015 Nuclear sclerosis 03/22/2015 Overview (08/31/2024): Dr Carpio report 06/14/06 Controlled type 2 diabetes m ana rosa with renal manifestation 03/15/2014 Overview (08/31/2024): A1C 7.7, Microalbumin 263 and GFR 40 on 3/13/14. Type 2 diabetes mellitus wit h neurological manifestations, controlled 03/15/2014 Overview (08/31/2024): Foot neuropathy. GERD (gastroesophageal reflux disease) 2 Overview (08/31/2024): Barium swallow 11/09 Shoulder pain 07/23/2008 Overview (08/31/2024): right Murmur 03/29/2008 Overview (08/31/2024): Echo 07/05--mild to mod AI, Stable 01/08 07/14 mild AI. Osteopenia 11/11/2007 Overview (08/31/2024): Stable by bone density 2001, 11/05--progression borderline osteoporosis 01/08--overall osteopenia (osteoporosis L4 and troch) 04/10 osteopenia hip and back 04/12 Osteopenia back and hip 07/16 normal back, osteopenia hip Chest pain, unspecified 08/02/2007 Overview (08/31/2024): 07/05--Adeno Mibi neg. EF 55% Gout, unspecified 11/08/2006 Hypercholesteremia 01/12/2006 Overview (08/31/2024): LDL and trig Assessment & Plan (10/23/2024 12:41 PM EST): The patient has hyperlipidemia. She should be treated aggressively with the goal of an LDL cholesterol less than 70 mg/dL. Microalbuminuria 01/12/2006 Diabetic polyneuropathy 01/12/2006 Assessment & Plan (10/23/2024 12:41 PM EST): I defer management of diabetes with complications to the primary care team Essential hypertension, benign 09/07/2005 Hypothyroidism 09/07/2005 Resolved Problems Problem Noted Date Diagnosed Date Resolved Date CKD (chronic kidney disease), stage III 08/12/2004 2024 Assessment & Plan (10/23/2024 12:41 PM EST): Followed by Dr. Colvin. Patient is treated with low-dose Eliquis. Encounters Date Type Department Care Team Description 01/17/[address] [facility] - Main Lab [address] [place] [phone] Tyree Amador MD Type 2 diabetes mellitus with hyperglycemia (CMS/HCC); Chronic kidney disease, unspecified 01/17/2025 Telephone Adult [address] [phone] Anil Bettencourt MD Hospital Follow-up 01/13/2025 Lab Requisition [facility] Lab [address] [place] [phone] Tyree Amador MD Chronic kidney disease, unspecified; Type 2 diabetes mellitus with hyperglycemia (CMS/HCC) 01/10/2025 Lab Requisition [facility] [address] [place] [phone] Tyree Amador MD Type 2 diabetes mellitus with hyperglycemia (CMS/HCC); Chronic kidney disease, unspecified 01/08/[address] [phone] Anil Bettencourt MD Faxed Order [id number] 01/08/[address] [address] Anil Bettencourt MD Faxed Order [id number] 01/06/2025 Lab Requisition [facility] [address] [place] [phone] Tyree Amador MD Type 2 diabetes mellitus with hyperglycemia (CMS/HCC); Chronic kidney disease, unspecified 01/04/[address] [facility] - Main Lab [address] [place] [phone] 01/04/2025 Lab Requisition [facility] Main Lab [address] [place] [phone] Tyree Amador MD Chronic kidney disease, unspecified 2024 3:15 PM EST Office Visit Nephrology - [address] [phone] Joel Colvin MD CKD (chronic kidney disease) stage 4, GFR 15-29 ml/min (CMS/[facility]) (Primary Dx); Essential hypertension, benign; Controlled type 2 diabetes mellitus with microalbuminuria, with long-term current use of insulin (CMS/HCC) 12/18/2024 Billing Patient Not Present Adult [facility] [address] [place] [phone] Anil Bettencourt MD Encounter for other orthopedic aftercare (Primary Dx); Chronic gout with tophus, unspecified cause, unspecified site; Hypertensive chronic kidney disease with stage 1 through stage 4 chronic kidney disease, or unspecified chronic kidney disease; Type 2 diabetes mellitus with diabetic chronic kidney disease, unspecified CKD stage, unspecified whether detention insulin use (CMS/[facility]); Chronic kidney disease, stage 4 (severe) (CMS/HCC); Anemia in chronic kidney disease, unspecified CKD stage 12/13/2024 2:30 PM EST Ancillary Procedure [facility] [address] [facility] [address] [place] [phone] Bradycardia 12/13/2024 Telephone Adult [facility] [address] [place] [phone] Anil Bettencourt MD Urinary Problem 12/13/2024 Telephone [facility] [address] [place] [address] Anil Bettencourt MD Medical Records 12/13/2024 Telephone Adult [facility] [address] [place] [phone] Anil Bettencourt MD Forms/questionnaires ([facility] 11/28/2024-01/26/2025) 12/12/2024 Telephone [facility] [address] [place] [address] Roma Scott MD low heart rate ; Fatigue 12/06/[address] [phone] Ania Griffin, RN appointment needed 12/05/2024 10:00 AM EST Office Visit [address] [phone] Mayank Parra PA History of surgery on lower extremity (Primary Dx); Diarrhea, unspecified type; Essential hypertension, benign; Stage 4 chronic kidney disease (CMS/HCC); Anemia, unspecified type 12/01/[address] [phone] Anil Bettencourt MD 11/28/[address] [phone] Anil Bettencourt MD triage call back 11/28/[address] [phone] Nate Guillory RN Hospital Follow-up 11/26/2024 Lab Requisition [facility] [address] [place] [phone] Horace Solomon MD Encounter for other general examination 11/24/2024 Lab Requisition [facility] [address] [place] [phone] Horace Solomon MD Encounter for other general examination 11/23/2024 Telephone Adult [address] [phone] Anil Bettencourt MD Hospital Follow-up 11/23/2024 Lab Requisition [facility] [address] [place] [phone] Horace Solomon MD Encounter for other general examination 11/23/2024 Lab Requisition [facility] [address] [place] [address] Horace Solomon MD Other diseases of stomach and duodenum; Encounter for other general examination 11/21/2024 Lab Requisition [facility] [address] [place] [address] Horace Solomon MD Encounter for other general examination 11/20/2024 Lab Requisition [facility] [address] [place] [address] 11/20/2024 Lab Requisition [facility] [address] [place] [address] Horace Solomon MD Encounter for other general examination 11/18/2024 Lab Requisition [facility] [address] [place] [address] Horace Solomon MD Encounter for other general examination 11/17/2024 Lab Requisition [facility] [address] [place] [address] Horace Solomon MD Encounter for other general examination 11/16/2024 Lab Requisition [facility] [address] [place] [address] Horace Solomon MD Encounter for other general examination 11/15/2024 Lab Requisition [facility] [address] [place] [address] Horace Solomon MD Encounter for other general examination 11/14/2024 Telephone Adult [facility] - [place] [address] [place] [phone] Anil Bettencourt MD 11/11/2024 Lab Requisition [facility] [address] [place] [address] Horace Solomon MD Encounter for other general examination 11/02/2024 Telephone Adult Medicine - [place] [address] [place] [address] Malinda Cole [place] 11/01/2024 Telephone [facility] Cardiology [facility] [address] [place] [address] Roma Scott MD medical records 10/31/2024 10:00 AM EST Consult Adult Medicine [facility] [address] [place] [address] Anil Bettenocurt MD Preop examination (Primary Dx) 10/23/2024 8:20 AM EST Consult [facility] [address] [place] [address] Roma Scott MD Coronary artery disease involving [place] coronary artery of [place] heart without angina pectoris (Primary Dx); Paroxysmal atrial fibrillation (CMS/HCC); Hypercholesteremia; Obstructive sleep apnea; Diabetic polyneuropathy associated with diabetes mellitus due to underlying condition (CMS/HCC); Stage 3 chronic kidney disease, unspecified whether stage 3a or 3b CKD (CMS/HCC) 10/19/[address] [facility] [address] [place] [address] Anil Bettencourt MD Fitting for DME from Last 3 Months Immunizations Name Administration Dates Next Due H1N1 Inj Preservative Free 12/02/2009 Influenza Quadrivalent, with preservative (Fluzone; Afluria) 6mo and older 09/05/2019 Influenza trivalent, 0.5mL ( Fluad) 65yo and older 10/31/2024 Influenza trivalent, 0.5mL ( Fluzone High-dose) 65yo and older 11/16/2022,11/04/2021,11/13/2019,08/26,08/24/2017,09/01/2016,08/26/2015 Influenza trivalent, with pr eservative (Fluzone; Afluria) 6mo and older 10/16/2014,10/20/2013,10/06/2012,09/04,09/01/2010,08/29/2009,09/11/2008 ,09/27/2007,11/01/2006,09/07/2005 Pfizer Covid-19 Bivalent, Or iginal + Ba.1 (Non-US Trademark [employer] Bivalent) 11/16/2022 Pneumococcal conjugate 13 va lent (Prevnar 13, PCV13) 2mo and older 02/21/2016 Pneumococcal polysaccharide 23 valent (Pneumovax 23) 2yo and older 08/24/2017,11/08/2007,08/29/2001 Tdap Tetanus diptheria acell ular pertussis (Boostrix; Adacel) 7yo and older 02/22/2018,10/24/2008 Zoster Live 2010 Surgical History Surgery Date Site/Laterality Comments VAGINAL DELIVERY x3 TOE AMPUTATION 10/29/2018 - 11/28/2018 METATARSOPHALANGEAL JOINT right 3rd due to osteomyelitis TUBAL LIGATION COLONOSCOPY 02/23/2006 hemorrhoids OTHER SURGICAL HISTORY 03/10/2016 COLON CA SCRN NOT HI RSK IND tics and hemorrhoids; would not repeat BREAST BX MAMMOTOME WRC 11/29/1994 - 11/28/1995 Right neg Medical History Medical History Date Comments Abnormal mammogram 12/16/2001 KAI (acute kidney injury) ([facility]) Anemia Astigmatism 04/2005 C. difficile colitis Candidiasis of vulva and vagina 11/17/2004 Cervicitis and endocervicitis 05/06/1999 Chest pain, unspecified 10/18/2003 Chronic ischemic heart disease CKD (chronic kidney disease) Disturbance of skin sensation Essential hypertension, benign 09/07/2005 Neuropathy of foot 12/2005 Gallstone Gastric ulcer unspecified as a cute or chronic, without mention of hemorrhage, perforation, or obstruction HABP (hospital-acquired bact erial pneumonia) Hematuria 10/2000 Leiomyoma of uterus, unspecified 03/09/2002 Microalbuminuria 01/12/2006 Myopia 05/27/2005 Ovarian cyst 05/19/1999 Other and unspec ified Atopic dermatitis and related condition 03/1999 Other vitreous opacities, unspecified eye 2004 Postmenopausal atrophic vaginitis 09/23/2001 Postmenopausal bleeding 05/2002 Presbyopia 05/27/2005 Pure hypercholesterolemia 05/29/2003 Seborrheic dermatitis, unspecified 05/01/2002 Senile cataract, unspecified age-related cataract type, unspecified laterality 05/07/2004 Sepsis ([facility]) Sleep apnea Symptomatic menopausal or fe male climacteric states 06/19/2002 Type II or unspecified type diabetes mellitus with renal manifestations, uncontrolled(250.42) ([facility]) 03/15/2014 Type II or unspecified type diabetes mellitus with ketoacidosis, uncontrolled(250.12) ([facility]) 06/04/2005 mellitus without mentio n of complication, not stated as uncontrolled Hypothyroidism 09/07/2005 Family History Medical History Relation Name Comments COPD Brother Coronary artery disease Brother Heart attack Brother Kidney cancer Brother Breast cancer Daughter Lung cancer Mother Breast cancer Other Coronary artery disease Sister Relation Name Status Comments Brother Daughter Alive Mother Other maternal aunt Sister Alive Social History Tobacco Use Types Packs/Day Years Used Date Smoking Tobacco: Never Smokeless Tobacco: Never Tobacco Cessation:Counseling Given: Not Answered Alcohol Use Standard Drinks/Week Comments Never 0 [...] for your loved ones. For example, children's librarian or elderly care for an older [...] PM EST Sexual Orientation Not on file Obstetrics History Last Filed Vital Signs Vital Sign Reading Time Taken Comments Blood Pressure 158/65 2024 3:34 PM EST Pulse 63 2024 3:34 PM EST Temperature 36.4 ??C (97.5 ??F) 12/05/2024 10:[address] Respiratory Rate - - Oxygen Saturation 97% 10/23/2024 8:27 AM EST Inhaled Oxygen Concentration - - Weight 71.2 kg (157 lb) 2024 3:34 PM EST Height 165.1 cm (5' 5 ) 12/05/2024 10:23 AM EST Body Mass Index 26.13 12/05/2024 10:23 AM EST Plan of Treatment Upcoming Encounters Date Type Department Care Team (Late st Contact Info) Description 01/29/2025 10:30 AM EST Office Visit Adult Medicine - [place] [address] [place] [address] Katharine Wadsworth MD [address] [place] [address] 03/27/2025 1:45 PM EDT Office Visit [place]phrology - [place] [address] [place] [phone] Joel Colvin MD [address] [place] [phone] Health Maintenance Due Date Last Done Comments Hepatitis A Vaccines (1 of 2 - Risk 2-dose series) 1964 Hepatitis B Vaccines (1 of 3 - Risk 3-dose series) 2005 Zoster Vaccines (2 of 3) 02/13/2011 2010 RSV Immunization Patients 60+ Years Old (1 - 1-dose 75+ series) 2020 Medicare Annual Wellness Visit 11/06/2022 COVID-19 Vaccine ( season) 2024 06/20/2024, 01/06/2022, 12/20/2021, Additional history exists Diabetes: Annual Foot Exam 11/18/2024 11/18/2023 Diabetes: Annual Retina Eye Exam 01/18/2025 01/18/2024 Diabetes: Annual Urine Albumin-Creatinine Ratio (uACR) 05/11/2025 05/11/2024 Diabetes: Blood Sugar Control Test (HGBA1C) 05/12/2025 11/11/2024, 09/08/2024, 05/19/2024, Additional history exists Falls Risk Assessment 05/25/2025 05/25/2024 Depression Screening 10/30/2025 10/30/2024 Social Influencers of Health Screening 10/30/2025 10/30/2024 Diabetes: Annual GFR (Glomerular Filtration Rate) 01/18/2026 01/18/2025, 01/15/2025, 01/11/2025, Additional history exists Hypertension/CHF/CAD Annual BMP Blood Test 01/18/2026 01/18/2025, 01/15/2025, 01/11/2025, Additional history exists DTaP,Tdap,and Td Vaccines (3 - Td or Tdap) 02/23/2028 02/22/2018, 10/24/2008 Cholesterol Screening (Lipid Panel) 09/08/2029 09/08/2024, 05/19/2024, 05/19/2024 Osteoporosis Screening (Bone Density Screening) 09/11/2032 09/11/2022, 07/05/2018 Hepatitis C Screening Completed 10/12/2013 Pneumococcal Vaccine: 50+ Years Completed 08/24/2017, 02/21/2016, 11/08/2007, Additional history exists Influenza Vaccine Completed 10/31/2024, , 11/16/2022, Additional history exists HIB Vaccines Aged Out No longer eligi ble based on patient's age to complete this topic HPV Vaccines Aged Out No longer eligi ble based on patient's age to complete this topic IPV Vaccines Aged Out No longer eligi ble based on patient's age to complete this topic MMR Vaccines Aged Out No longer eligi ble based on patient's age to complete this topic Meningococcal ACWY Vaccine Aged Out N o longer eligible based on patient's age to complete this topic Meningococcal B Vacine Aged Out No lo nger eligible based on patient's age to complete this topic RSV Immunization Patients Under 20 months Aged Out No longer eligible based on patient's age to complete this topic Varicella Vaccines Aged Out No longer eligible based on patient's age to complete this topic Procedures Procedure Name Priority Date/Time Associated Diagnosis Comments COMPLETE BLOOD COUNT Routine 01/18/2025 6:08 AM EST Type 2 diabetes mellitus with hyperglycemia (CMS/HCC) Chronic kidney disease, unspecified BASIC METABOLIC PANEL Routine 01/18/2025 5:08 AM EST Type 2 diabetes mellitus with hyperglycemia (CMS/HCC) Chronic kidney disease, unspecified COMPREHENSIVE METABOLIC PANEL Routine 01/15/2025 6:08 AM EST Chronic kidney disease, unspecified Type 2 diabetes mellitus with hyperglycemia (CMS/HCC) COMPLETE BLOOD COUNT Routine 01/15/2025 6:08 AM EST Chronic kidney disease, unspecified Type 2 diabetes mellitus with hyperglycemia (CMS/HCC) BASIC METABOLIC PANEL Routine 01/11/2025 5:48 AM EST Type 2 diabetes mellitus with hyperglycemia (CMS/HCC) Chronic kidney disease, unspecified COMPLETE BLOOD COUNT Routine 01/11/2025 5:48 AM EST Type 2 diabetes mellitus with hyperglycemia (CMS/HCC) Chronic kidney disease, unspecified COMPLETE BLOOD COUNT Routine 01/08/2025 6:09 AM EST Type 2 diabetes mellitus with hyperglycemia (CMS/HCC) Chronic kidney disease, unspecified BASIC METABOLIC PANEL Routine 01/08/2025 6:08 AM EST Type 2 diabetes mellitus with hyperglycemia (CMS/HCC) Chronic kidney disease, unspecified COMPREHENSIVE METABOLIC PANEL Routine 01/04/2025 5:38 AM EST Chronic kidney disease, unspecified COMPLETE BLOOD COUNT Routine 01/04/2025 5:38 AM EST Chronic kidney disease, unspecified YOUNG URINE CULTURE TUBE Routine 12/15/2024 4:13 PM EST Dysuria URINALYSIS WITH REFLEX MICROSCOPIC AND CULTURE Routine 12/15/2024 4:13 PM EST Dysuria URINALYSIS WITH REFLEX MICROSCOPIC AND CULTURE Routine 12/15/2024 4:13 PM EST Dysuria CARDIAC HOLTER MONITOR (REPORT GENERATED IN HOUSE) Routine 12/13/2024 2:32 PM EST Bradycardia CBC WITH AUTO DIFFERENTIAL Routine 12/05/2024 11:09 AM EST Anemia, unspecified type IRON AND TIBC Routine 12/05/2024 11:09 AM EST Anemia, unspecified type CBC AND DIFFERENTIAL Routine 12/05/2024 11:09 AM EST Anemia, unspecified type COMPREHENSIVE METABOLIC PANEL Routine 12/05/2024 11:09 AM EST Stage 4 chronic kidney disease (CMS/HCC) RESPIRATORY VIRUS PANEL MOLECULAR STUDY STAT 11/26/2024 12:30 PM EST Encounter for other general examination COMPLETE BLOOD COUNT Routine 11/24/2024 5:55 AM EST Encounter for other general examination BASIC METABOLIC PANEL Routine 11/24/2024 5:55 AM EST Encounter for other general examination COMPLETE BLOOD COUNT Routine 11/23/2024 6:01 AM EST Encounter for other general examination COMPREHENSIVE METABOLIC PANEL Routine 11/23/2024 6:01 AM EST Encounter for other general examination CREATININE, URINE, RANDOM Routine 11/22/2024 7:55 PM EST Other diseases of stomach and duodenum Encounter for other general examination PROTEIN, URINE, RANDOM Routine 11/22/2024 7:55 PM EST Other diseases of stomach and duodenum Encounter for other general examination BASIC METABOLIC PANEL Routine 11/21/2024 5:25 AM EST Encounter for other general examination COMPLETE BLOOD COUNT Routine 11/20/2024 6:45 AM EST Encounter for other general examination BASIC METABOLIC PANEL Routine 11/20/2024 6:45 AM EST Encounter for other general examination CBC WITH AUTO DIFFERENTIAL Routine 11/18/2024 6:02 [...] AM EST Encounter for other general examination PHOSPHORUS Routine 11/17/2024 7:32 AM EST Encounter for other general examination FERRITIN Routine 11/16/2024 8:06 AM EST Encounter for other general examination IRON AND TIBC Routine 11/16/2024 8:06 AM EST Encounter for other general examination COMPLETE BLOOD COUNT Routine 11/16/2024 8:06 AM EST Encounter for other general examination COMPREHENSIVE METABOLIC PANEL Routine 11/16/2024 8:06 AM EST Encounter for other general examination MAGNESIUM Routine 11/15/2024 5:15 AM EST Encounter for other general examination CBC WITH AUTO DIFFERENTIAL Routine 11/11/2024 6:47 AM EST Encounter for other general examination HEMOGLOBIN A1C Routine 11/11/2024 6:47 AM EST Encounter for other general examination MAGNESIUM Routine 11/11/2024 6:47 AM EST Encounter for other general examination CBC AND DIFFERENTIAL Routine 11/11/2024 6:47 AM EST Encounter for other general examination COMPREHENSIVE METABOLIC PANEL Routine 11/11/2024 6:47 AM EST Encounter for other general examination ECG 12-LEAD Routine 10/23/2024 8:42 AM EST Coronary artery disease involving [place] coronary artery of [place] heart without angina pectoris Paroxysmal atrial fibrillation (CMS/HCC) FALLS RISK ASSESSMENT Routine 05/25/2024 LIPID PANEL Routine 05/19/2024 URINE ALBUMIN CREATININE RATIO Routine 05/11/2024 DIABETES EYE EXAM Routine 01/18/2024 DIABETES FOOT EXAM Routine 11/18/2023 DXA BONE DENSITY STUDY 1+ SITS AXIAL SKEL Routine 09/11/2022 4:27 PM EDT Menopausal and female climacteric states HEPATITIS C SCREENING Routine 10/12/2013 from Last 3 Months or Most Recently Relevant to Health Maintenance Results * (ABNORMAL) Complete blood count (01/18/2025 6:08 AM EST) Only the most recent of9 resultswithin the time period is included. WBC 9.8 4.8 - 10.8 K/mcL LAB HEMETOLOGY METHOD 01/18/2025 9:41 AM [facility] RBC 2.70(L) 3.80 - 4.80 M/mcL LAB HEMETOLOGY METHOD 01/18/2025 9:41 AM [facility] Hemoglobin 8.2(L) 11.5 - 16.0 g/dL LAB HEMETOLOGY METHOD 01/18/2025 9:41 AM [facility] Hematocrit 26.2(L) 35.0 - 47.0 % LAB HEMETOLOGY METHOD 01/18/2025 9:41 AM [facility] MCV 96.0 79.0 - 98.0 FL LAB HEMETOLOGY METHOD 01/18/2025 9:41 AM [facility] MCH 30.0 27.0 - 32.0 pcg LAB HEMETOLOGY METHOD 01/18/2025 9:41 AM [facility] MCHC 31.3(L) 32.0 - 37.0 g/dL LAB HEMETOLOGY METHOD 01/18/2025 9:41 AM [facility] RDW 14.3 11.0 - 15.0 % LAB HEMETOLOGY METHOD 01/18/2025 9:41 AM [facility] Platelets 207 130 - 400 K/mcL LAB HEMETOLOGY METHOD 01/18/2025 9:41 AM [facility] MPV 11.1(H) 7.0 - 11.0 FL LAB HEMETOLOGY METHOD 01/18/2025 9:[address] [facility] NRBC 0.0 <1.0 % LAB HEMETOLOGY METHOD 01/18/2025 9:41 AM [facility] NRBC Absolute 0.00 <0.10 K/mcL LAB HEMETOLOGY METHOD 01/18/2025 9:[address] [facility] Blood Venous blood specimen / Unknown 01/18/2025 6:08 AM EST 01/18/2025 9:21 AM EST us Tyree Amador MD LAB BLOOD ORDERABLES Final Resu lt [facility] [address] [place] [address], [place] [phone] * (ABNORMAL) Basic metabolic panel (01/18/2025 5:08 AM EST) Only the most recent of7 resultswithin the time period is included. Sodium 140 133 - 145 mmol/L LAB CHEMISTRY METHOD 01/18/2025 9:50 AM [facility] Potassium 3.6 3.5 - 5.5 mmol/L LAB CHEMISTRY METHOD 01/18/2025 9:50 AM [facility] Chloride 106 96 - 110 mmol/L LAB CHEMISTRY METHOD 01/18/2025 9:50 AM [facility] CO2 24 21 - 32 mmol/L LAB CHEMISTRY METHOD 01/18/2025 9:50 AM [facility] Anion Gap 10 3 - 11 LAB CHEMISTRY METHOD 01/18/2025 9:50 AM [facility] Glucose 122(H) 70 - 100 mg/dL LAB CHEMISTRY METHOD 01/18/2025 9:50 AM [facility] BUN 43(H) 5 - 25 mg/dL LAB CHEMISTRY METHOD 01/18/2025 9:50 AM [facility] Creatinine 2.82(H) 0.50 - 1.10 mg/dL LAB CHEMISTRY METHOD 01/18/2025 9:50 AM [facility] eGFR 17(L) >=60 mL/min/1. 73m2 LAB CHEMISTRY METHOD 01/18/2025 9:50 AM [facility] Comment:Calculation based on the??Chronic Kidney Disease Epidemiology Collaboration (CKD-EPI) equation refit??without adjustment for race. BUN/Creatinine Ratio 15.2 LAB CHEMISTRY METHOD 01/18/2025 9:50 AM [facility] Calcium 8.3(L) 8.5 - 10.5 mg/dL LAB CHEMISTRY METHOD 01/18/2025 9:50 AM [facility] Blood Venous blood specimen / Unknown 01/18/2025 5:08 AM EST 01/18/2025 9:20 AM EST us Tyree Amador MD LAB BLOOD ORDERABLES Final Resu lt [facility] [address] [place] [address], * (ABNORMAL) Comprehensive metabolic panel (01/15/2025 6:08 AM EST) Only the most recent of6 resultswithin the time period is included. Sodium 143 133 - 145 mmol/L LAB CHEMISTRY METHOD 01/15/2025 10:44 AM [facility] Potassium 4.0 3.5 - 5.5 mmol/L LAB CHEMISTRY METHOD 01/15/2025 10:44 AM [facility] Comment:Hemolysis present Chloride 109 96 - 110 mmol/L LAB CHEMISTRY METHOD 01/15/2025 10:44 AM [facility] CO2 25 21 - 32 mmol/L LAB CHEMISTRY METHOD 01/15/2025 10:44 AM [facility] Anion Gap 9 3 - 11 LAB CHEMISTRY METHOD 01/15/2025 10:44 AM [facility] Glucose 123(H) 70 - 100 mg/dL LAB CHEMISTRY METHOD 01/15/2025 10:44 AM [facility] BUN 42(H) 5 - 25 mg/dL LAB CHEMISTRY METHOD 01/15/2025 10:44 AM [facility] Creatinine 2.88(H) 0.50 - 1.10 mg/dL LAB CHEMISTRY METHOD 01/15/2025 10:44 AM [facility] eGFR 16(L) >=60 mL/min/1. 73m2 LAB CHEMISTRY METHOD 01/15/2025 10:44 AM [facility] Comment:Calculation based on the??Chronic Kidney Disease Epidemiology Collaboration (CKD-EPI) equation refit??without adjustment for race. BUN/Creatinine Ratio 14.6 LAB CHEMISTRY METHOD 01/15/2025 10:44 AM [facility] Calcium 8.5 8.5 - 10.5 mg/dL LAB CHEMISTRY METHOD 01/15/2025 10:44 AM [facility] AST (SGOT) 21 10 - 42 unit/L LAB CHEMISTRY METHOD 01/15/2025 10:44 AM [facility] Comment:Hemolysis present ALT (SGPT) 12 10 - 60 unit/L LAB CHEMISTRY METHOD 01/15/2025 10:44 AM [facility] Alkaline Phosphatase 157(H) 42 - 121 unit/L LAB CHEMISTRY METHOD 01/15/2025 10:44 AM [facility] Total Protein 6.4 6.0 - 8.0 g/dL LAB CHEMISTRY METHOD 01/15/2025 10:44 AM [facility] Albumin 3.0(L) 3.2 - 5.0 g/dL LAB CHEMISTRY METHOD 01/15/2025 10:44 AM [facility] Total Bilirubin 0.7 0.0 - 1.4 mg/dL LAB CHEMISTRY METHOD 01/15/2025 10:44 AM [facility] Blood Venous blood specimen / Unknown Venipuncture / Unknown 01/15/2025 6:08 AM EST 01/15/2025 9:46 AM EST us Tyree Amador MD LAB BLOOD ORDERABLES Final Resu lt [facility] [address] [place] [address], [place] [phone] * (ABNORMAL) Urinalysis with reflex microscopic and culture (12/15/2024 4:13 PM EST) Specific [place] Urine 1.018 1.003 - 1.030 LAB URINALYSIS - AUTOMATED METHOD 12/15/2024 5:56 PM [facility] pH, Urine 7.5 5.0 - 8.0 pH LAB URINALYSIS - AUTOMATED METHOD 12/15/2024 5:56 PM [facility] Leukocytes, Urine Negative Negative LAB URINALYSIS - AUTOMATED METHOD 12/15/2024 5:56 PM [facility] Nitrite, Urine Negative Negative LAB URINALYSIS - AUTOMATED METHOD 12/15/2024 5:56 PM [facility] Protein, Urine >=1000(A) <=Trace mg/dL LAB URINALYSIS - AUTOMATED METHOD 12/15/2024 5:56 PM [facility] Glucose, Urine 100(A) Negative mg/dL LAB URINALYSIS - AUTOMATED METHOD 12/15/2024 5:56 PM [facility] Ketones, Urine Negative Negative mg/dL LAB URINALYSIS - AUTOMATED METHOD 12/15/2024 5:56 PM [facility] Urobilinogen , Urine 1.0 0.2 - 1.0 mg/dL LAB URINALYSIS - AUTOMATED METHOD 12/15/2024 5:56 PM [facility] Bilirubin, Urine Negative Negative LAB URINALYSIS - AUTOMATED METHOD 12/15/2024 5:56 PM [facility] Blood, Urine Negative Negative LAB URINALYSIS - AUTOMATED METHOD 12/15/2024 5:56 PM [facility] RBC, Urine 1.9 0 - 4 /HPF LAB URINALYSIS - AUTOMATED METHOD 12/15/2024 5:56 PM [facility] WBC, Urine 2.5 0 - 4 /HPF LAB URINALYSIS - AUTOMATED METHOD 12/15/2024 5:56 PM [facility] Squamous Epithelial, Urine 29 0 - 60 /LPF LAB URINALYSIS - AUTOMATED METHOD 12/15/2024 5:56 PM [facility] Bacteria, Urine Negative Negative /HPF LAB URINALYSIS - AUTOMATED METHOD 12/15/2024 5:56 PM [facility] Hyaline Casts, Urine 1.2 0 - 3 /LPF LAB URINALYSIS - AUTOMATED METHOD 12/15/2024 5:56 PM [facility] Urine Urine specimen obtained by clean catch procedure / Unknown Non-blood Collection / Unknown 12/15/2024 4:13 PM EST 12/15/2024 4:13 PM EST C Naga Bettencourt MD LAB URINE ORDERABLES Final Res ult Performing Organization Address City/State/[facility] Co de Phone Number [facility] [address] [place] [address], * Young urine culture tube (12/15/2024 4:13 PM EST) Extra Tube Hold for add-ons. 12/15/2024 6:01 PM [facility] Comment:Auto resulted. Urine Urine specimen obtained by clean catch procedure / Unknown Non-blood Collection / Unknown 12/15/2024 4:13 PM EST 12/15/2024 4:13 PM EST Anil Bettencourt MD LAB URINE ORDERABLES Final Res ult [facility] [address] [place] [address], * CARDIAC HOLTER MONITOR (REPORT GENERATED IN HOUSE) (12/13/2024 2:32 PM EST) Anatomical Region Laterality Modality Cardiac Diagnost ic Narrative 12/27/2024 3:00 PM EST [facility] DEPARTMENT [address] [facility], [id number], [place] [address] TEL: FAX: Type of Test: 24 Hour Holter Monitor Date of Test: 12/13/2024 Ordering Provider: Albert Webber NP 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 1: Normal Sinus Rhythm [...] CV CARDIAC SERVICES PROCEDU RES Final Result * (ABNORMAL) CBC auto differential (12/05/2024 11:09 AM EST) Only the most recent of3 resultswithin the time period is included. WBC 5.9 4.8 - 10.8 K/mcL LAB HEMETOLOGY METHOD 12/05/2024 2:30 PM [facility] RBC 3.20(L) 3.80 - 4.80 M/mcL LAB HEMETOLOGY METHOD 12/05/2024 2:30 PM [facility] Hemoglobin 9.6(L) 11.5 - 16.0 g/dL LAB HEMETOLOGY METHOD 12/05/2024 2:30 PM [facility] Hematocrit 30.2(L) 35.0 - 47.0 % LAB HEMETOLOGY METHOD 12/05/2024 2:30 PM [facility] MCV 93.8 79.0 - 98.0 FL LAB HEMETOLOGY METHOD 12/05/2024 2:30 PM [facility] MCH 29.8 27.0 - 32.0 pcg LAB HEMETOLOGY METHOD 12/05/2024 2:30 PM [facility] MCHC 31.8(L) 32.0 - 37.0 g/dL LAB HEMETOLOGY METHOD 12/05/2024 2:30 PM [facility] RDW 14.5 11.0 - 15.0 % LAB HEMETOLOGY METHOD 12/05/2024 2:30 PM [facility] Platelets 307 130 - 400 K/mcL LAB HEMETOLOGY METHOD 12/05/2024 2:30 PM [facility] MPV 10.5 7.0 - 11.0 FL LAB HEMETOLOGY METHOD 12/05/2024 2:30 PM [facility] NRBC 0.0 <1.0 % LAB HEMETOLOGY METHOD 12/05/2024 2:30 PM [facility] NRBC Absolute 0.00 <0.10 K/mcL LAB HEMETOLOGY METHOD 12/05/2024 2:30 PM [facility] Neutrophils Relative 75.8 % LAB HEMETOLOGY METHOD 12/05/2024 2:30 PM [facility] Lymphocytes Relative 12.9 % LAB HEMETOLOGY METHOD 12/05/2024 2:30 PM [facility] Monocytes Relative 7.8 % LAB HEMETOLOGY METHOD 12/05/2024 2:30 PM [facility] Eosinophils Relative 2.2 % LAB HEMETOLOGY METHOD 12/05/2024 2:30 PM [facility] Basophils Relative 1.0 % LAB HEMETOLOGY METHOD 12/05/2024 2:30 PM [facility] Immature Granulocytes Relative 0.3 % LAB HEMETOLOGY METHOD 12/05/2024 2:30 PM [facility] Neutrophils Absolute 4.44 1.50 - 7.00 K/mcL LAB HEMETOLOGY METHOD 12/05/2024 2:30 PM [facility] Lymphocytes Absolute 0.76(L) 1.00 - 5.00 K/mcL LAB HEMETOLOGY METHOD 12/05/2024 2:30 PM [facility] Monocytes Absolute 0.46 0.20 - 1.00 K/mcL LAB HEMETOLOGY METHOD 12/05/2024 2:30 PM [facility] Eosinophils Absolute 0.13 0.00 - 0.50 K/mcL LAB HEMETOLOGY METHOD 12/05/2024 2:30 PM [facility] Basophils Absolute 0.06 0.00 - 0.20 K/mcL LAB HEMETOLOGY METHOD 12/05/2024 2:30 PM [facility] Immature Granulocytes Absolute 0.02 0.00 - 0.03 K/mcL LAB HEMETOLOGY METHOD 12/05/2024 2:[address] [facility] Blood Venous blood specimen / Unknown Venipuncture / Unknown 12/05/2024 11:09 AM EST 12/05/2024 11:09 AM EST us Mayank CORLEY LAB BLOOD ORDERABLES Final Res ult Performing Organization Address City/[facility]/ZIP Co de Phone Number [facility] [address] [place] [address], [place] [phone] * (ABNORMAL) Iron and TIBC (12/05/2024 11:09 AM EST) Only the most recent of2 resultswithin the time period is included. [facility] Iron 61 40 - 150 mcg/dL LAB CHEMISTRY METHOD 12/05/2024 3:28 PM [facility] TIBC 248(L) 250 - 450 mcg/dL LAB CHEMISTRY METHOD 12/05/2024 3:28 PM [facility] Iron Saturation 25 15 - 50 % LAB CHEMISTRY METHOD 12/05/2024 3:28 PM [facility] Blood Venous blood specimen / Unknown Venipuncture / Unknown 12/05/2024 11:09 AM EST 12/05/2024 11:09 AM EST us Mayank CORLEY LAB BLOOD ORDERABLES Final Res ult Performing Organization Address City/[facility]/ZIP Co de Phone Number [facility] [address] [place] [address], [place] [phone] * Respiratory virus panel molecular study (11/26/2024 12:30 PM EST) [facility] Adenovirus Detection by PCR Not Detected Not Detected LAB MICROBIOLOGY METHOD 11/26/2024 6:[address] [facility] Influenza A PCR Not Detected Not Detected LAB MICROBIOLOGY METHOD 11/26/2024 6:[address] [facility] Influenza B PCR Not Detected Not Detected LAB MICROBIOLOGY METHOD 11/26/2024 6:03 PM [facility] Coronavirus 229E Not Detected Not Detected LAB MICROBIOLOGY METHOD 11/26/2024 6:03 PM [facility] Coronavirus HKU1 Not Detected Not Detected LAB MICROBIOLOGY METHOD 11/26/2024 6:03 PM [facility] Coronavirus OC43 Not Detected Not Detected LAB MICROBIOLOGY METHOD 11/26/2024 6:03 PM [facility] Coronavirus NL63 Not Detected Not Detected LAB MICROBIOLOGY METHOD 11/26/2024 6:03 PM [facility] Parainfluenza Virus 1 Not Detected Not Detected LAB MICROBIOLOGY METHOD 11/26/2024 6:03 PM [facility] Parainfluenza Virus 2 Not Detected Not Detected LAB MICROBIOLOGY METHOD 11/26/2024 6:03 PM [facility] Parainfluenza Virus 3 Not Detected Not Detected LAB MICROBIOLOGY METHOD 11/26/2024 6:03 PM [facility] Parainfluenza Virus 4 Not Detected Not Detected LAB MICROBIOLOGY METHOD 11/26/2024 6:03 PM [facility] RSV PCR Not Detected Not Detected LAB MICROBIOLOGY METHOD 11/26/2024 6:03 PM [facility] Human Metapneumovirus A and B Not Detected Not Detected LAB MICROBIOLOGY METHOD 11/26/2024 6:03 PM [facility] Rhinovirus/Entero virus Not Detected Not Detected LAB MICROBIOLOGY METHOD 11/26/2024 6:03 PM [facility] Bordetella pertussis Not Detected Not Detected LAB MICROBIOLOGY METHOD 11/26/2024 6:03 PM [facility] Bordetella parapertussis Not Detected Not Detected LAB MICROBIOLOGY METHOD 11/26/2024 6:03 PM [facility] Mycoplasma pneumo by PCR Not Detected Not Detected LAB MICROBIOLOGY METHOD 11/26/2024 6:03 PM [facility] Chlamydia pneumoniae Not Detected Not Detected LAB MICROBIOLOGY METHOD 11/26/2024 6:[address] [facility] SARS COV-2 Not Detected Not Detected LAB MICROBIOLOGY METHOD 11/26/2024 6:[address] [facility] Swab 11/26/2024 12:3 0 PM EST 11/26/2024 1:[address] [facility] - 11/26/2024 6:03 PM EST Testing was performed using the [employer] Respiratory Pathogen PCR Assay. All results must be correlated with the clinical findings. Results should not be used as the sole basis for diagnosis. False Negative results may occur from the presence of sequence variants in the region targeted by the assay or the presence of inhibitors. Results may be affected by concurrent antiviral/antimicrobial therapy or levels of organisms that are below the limit of detection. us Horace Solomon MD LAB MICROBIOLOGY - GENERAL ORD ERABLES Final Result Performing Organization Address City/[facility]/ZIP Co de Phone Number [facility] [address] [place] [address], [place] [phone] * Protein, urine, random (11/22/2024 7:55 PM EST) Protein, Urine 177 mg/dL LAB CHEMISTRY METHOD 11/23/2024 10:[address] [facility] Urine Urine specimen obtained by clean catch procedure / Unknown 11/22/2024 7:55 PM EST 11/23/2024 9:24 AM EST us Horace Solomon MD LAB URINE ORDERABLES Final Res ult Performing Organization Address City/[facility]/ZIP Co de Phone Number [facility] [address] [place] [address], [place] [phone] * Creatinine, urine, random (11/22/2024 7:55 PM EST) Creatinine, Urine 38.0 mg/dL LAB CHEMISTRY METHOD 11/23/2024 10:[address] [facility] Urine Urine specimen obtained by clean catch procedure / Unknown 11/22/2024 7:55 PM EST 11/23/2024 9:24 AM EST Horace Solomon MD LAB URINE ORDERABLES Final Res ult Performing Organization Address [facility] Co de Phone Number [facility] [address] [place] [address], [place] [phone] * Magnesium (11/18/2024 6:02 AM EST) Only the most recent of3 resultswithin the time period is included. Magnesium 2.0 1.9 - 2.6 mg/dL LAB CHEMISTRY METHOD 11/18/2024 10:[address] [facility] Blood Venous blood specimen / Unknown Venipuncture / Unknown 11/18/2024 6:02 AM EST 11/18/2024 9:16 AM EST Horace Solomon MD LAB BLOOD ORDERABLES Final Res ult Performing Organization Address [facility] de Phone Number [facility] [address] [place] [address], [place] [phone] * Folate (11/18/2024 6:02 AM EST) Folate 7.3 2.8 - 17.0 ng/ml LAB CHEMISTRY METHOD 11/18/2024 11:[address] [facility] Blood Venous blood specimen / Unknown Venipuncture / Unknown 11/18/2024 6:02 AM EST 11/18/2024 9:16 AM EST Horace Solomon MD LAB BLOOD ORDERABLES Final Res ult Performing Organization Address City/[facility]/ZIP Co de Phone Number [facility] [address] [place] [address], [place] [phone] * (ABNORMAL) Vitamin B12 (11/18/2024 6:02 AM EST) Pathologist [facility] Vitamin B-12 951(H) 250 - 900 pcg/mL LAB CHEMISTRY METHOD 11/18/2024 11:[address] [facility] Blood Venous blood specimen / Unknown Venipuncture / Unknown 11/18/2024 6:02 AM EST 11/18/2024 9:16 AM EST Horace Solomon MD LAB BLOOD ORDERABLES Final Res ult [facility] [address] [place] [address], [place] [phone] * Phosphorus (11/17/2024 7:32 AM EST) [facility] Phosphorus 4.5 2.5 - 4.5 mg/dL LAB CHEMISTRY METHOD 11/17/2024 12:[address] [facility] Blood Venous blood specimen / Unknown Venipuncture / Unknown 11/17/2024 7:32 AM EST 11/17/2024 10:54 AM EST us Horace Solomon MD LAB BLOOD ORDERABLES Final Res ult [facility] [address] [place] [address], [place] [phone] * (ABNORMAL) Ferritin (11/16/2024 8:06 AM EST) Pathologist [facility] Ferritin 290(H) 8 - 252 ng/mL LAB CHEMISTRY METHOD 11/16/2024 5:[address] [facility] Blood Venous blood specimen / Unknown Venipuncture / Unknown 11/16/2024 8:06 AM EST 11/16/2024 9:12 AM EST Horace Solomon MD LAB BLOOD ORDERABLES Final Res ult Performing Organization Address City/[facility]/ZIP Co de Phone Number [facility] [address] [place] [address], [place] [phone] * (ABNORMAL) Hemoglobin A1c (11/11/2024 6:47 AM EST) Hemoglobin A1C 6.7(H) <6.5 % LAB CHEMISTRY METHOD 11/12/2024 8:[address] [facility] Mean Bld Glu Estim. 146 mg/dL LAB CHEMISTRY METHOD 11/12/2024 8:[address] [facility] Blood Venous blood specimen / Unknown Venipuncture / Unknown 11/11/2024 6:47 AM EST 11/11/2024 10:56 AM EST Horace Solomon MD LAB BLOOD ORDERABLES Final Res ult Performing Organization Address City/[facility]/ZIP Co de Phone Number [facility] [address] [place] [address], [place] [phone] * ECG 12 lead (10/23/2024 8:42 AM EST) Ventricular Rate ECG 60 BPM GEMUSE Atrial Rate 60 BPM GEMUSE P-R Interval 172 ms GEMUSE QRS Duration 104 ms GEMUSE Q-T Interval 474 ms GEMUSE QTc 474 ms GEMUSE P Wave [place] 87 degrees GEMUSE R [place] 46 degrees GEMUSE T [place] -36 degrees GEMUSE ECG Interpretation Normal sinus rhythm Non specific ST segment and T wave abnormalities Abnormal ECG When compared with ECG of 06-MAR-2024 12:28, Nonspecific T wave abnormality, worse in Inferior leads Confirmed by ROMA SCOTT ([id number]) on 10/23/2024 9:37:18 AM GEMUSE 10/23/2024 8:42 AM EST 10/23/2024 9:37 AM EST Roma Scott MD ECG ORDERABLES Final Result GEMUSE * Falls Risk Assessment (05/25/2024) [facility] Falls Risk Assessment abstracted Result [facility] Provider HEALTH MAINTENANCE Final Result * (ABNORMAL) Lipid panel (05/19/2024) [facility] LDL/HDL Ratio 7(A) 0 - 4 Triglycerides 468(A) 0 - 150 mg/dL Cholesterol 201(A) 0 - 200 mg/dL HDL 27(A) >=40 mg/dL LDL Cholesterol 81 0 - 100 mg/dL Blood Venous blood specimen / Unknown Result [facility] Provider LAB BLOOD ORDERABLES Yady l Result * Urine Albumin Creatinine Ratio (05/11/2024) [facility] Urine Albumin Creatinine Ratio abstracted Result [facility] Provider HEALTH MAINTENANCE Final Result * Diabetes Eye Exam (01/18/2024) [facility] Diabetes: Annual Retina Eye Exam abstracted Result [facility] Provider HEALTH MAINTENANCE Final Result * Diabetes Foot Exam (11/18/2023) [facility] Diabetes: Annual Foot Exam abstracted Result [facility] Provider HEALTH MAINTENANCE Final Result * DXA BONE DENSITY STUDY 1+ SITS AXIAL SKEL (09/11/2022 4:27 PM EDT) Anatomical Region Laterality Modality Bone Densitometr y 04/29/2022 12:3 5 PM EDT Narrative 09/14/2022 5:51 PM EDT BONE DENSITY ? Lumbar Spine T-score is -0.7 ?? (SD relative to 20-29 y/o adult) Z-score is +1.8 ??(SD relative to age matched peers) This is normal by criteria defined by the WHO. Left Hip T-score is -1.9 Z-score is +0.0 This is consistent with osteopenia by criteria defined by the WHO. and consistent with osteoporosis by criteria defined by the WHO. Comparison exam(s): significant decrease in bone density of ??hip and lumbar spine when compared to most recent bone density examination ?? Confidence level is +/-95%. Impression: Based on the World Health Organization criteria, Radha Wright should be classified as having osteopenia. This patient has a 20% risk of major osteoporotic fracture and a 4.5% risk of hip fracture over the next 10 years. (World Health Organization Fracture Risk Assessment) [facility] Department of Internal Medicine recommends using National Osteoporosis Foundation (NOF) guidelines in treatment decisions related to osteoporosis. NOF guidelines suggest considering treatment for postmenopausal women and men aged 50 or older presenting with the following: History of hip or vertebral fracture. T-score less than or equal to -2.5 (DXA) at the femoral neck, total hip, or spine, after appropriate evaluation to exclude secondary causes. Low bone mass (T-score between -1.0 and -2.5 at the femoral neck or spine) AND a 10-year probability of a hip fracture greater than or equal to 3% OR a 10-year probability of a major osteoporosis-related fracture greater than or equal to 20% based on the [place]-adapted WHO algorithm Please note that all treatment decisions require clinical judgment and consideration of individual patient factors, including patient preferences, co-morbidities, previous drug use, risk factors not captured in the FRAX model (e.g., frailty, falls, vitamin D deficiency, increased bone turnover, interval significant decline in bone density) and possible under- or over-estimation of fracture risk by FRAX. Procedure Note Missy Plasencia MD - 11/17/2022 BONE DENSITY Lumbar Spine T-score is -0.7 (SD relative to 20-29 y/o adult) Z-score is +1.8 (SD relative to age matched peers) This is normal by criteria defined by the WHO. Left Hip T-score is -1.9 Z-score is +0.0 This is consistent with osteopenia by criteria defined by the WHO. andconsistent with osteoporosis by criteria defined by the WHO. Comparison exam(s): significant decrease in bone density of hip andlumbar spine when compared to most recent bone density examination Confidence level is +/-95%. Impression: Based on the World Health Organization criteria, Radha Wright shouldbe classified as having osteopenia. This patient has a 20% risk of majorosteoporotic fracture and a 4.5% risk of hip fracture over the next 10years. (World Health Organization Fracture Risk Assessment) [facility] Department of Internal Medicine recommendsusing National Osteoporosis Foundation (NOF) guidelines in treatmentdecisions related to osteoporosis. NOF guidelines suggest consideringtreatment for postmenopausal women and men aged 50 or older presentingwith the following: History of hip or vertebral fracture. T-score less than or equal to -2.5 (DXA) at the femoral neck, total hip,or spine, after appropriate evaluation to exclude secondary causes. Low bone mass (T-score between -1.0 and -2.5 at the femoral neck or spine)AND a 10-year probability of a hip fracture greater than or equal to 3% ORa 10-year probability of a major osteoporosis-related fracture greaterthan or equal to 20% based on the [place]-adapted WHO algorithm Please note that all treatment decisions require clinical judgment andconsideration of individual patient factors, including patientpreferences, co-morbidities, previous drug use, risk factors not capturedin the FRAX model (e.g., frailty, falls, vitamin D deficiency, increasedbone turnover, interval significant decline in bone density) and possibleunder- or over-estimation of fracture risk by FRAX. 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 Health Care Decision (hx) 03/24/2024 AD NAGEL DIRECTIVE Health Care Decision (hx) 03/24/2024 AD NAGEL DIRECTIVE Health Care Decision (hx) 06/07/2021 AD NAGEL DIRECTIVE Health Care Decision (hx) 06/07/2021 AD NAGEL DIRECTIVE Health Care Decision (hx) 06/07/2021 AD NAGEL DIRECTIVE Health Care Decision (hx) 06/07/2021 AD NAGEL DIRECTIVE Health Care Decision (hx) 06/07/2021 AD NAGEL DIRECTIVE Health Care Decision (hx) 06/07/2021 AD NAGEL DIRECTIVE Health Care Decision (hx) 06/07/2021 AD NAGEL DIRECTIVE Health Care Decision (hx) 06/07/2021 AD NAGEL DIRECTIVE Health Care Decision (hx) 06/07/2021 AD NAGEL DIRECTIVE Health Care Decision (hx) 06/07/2021 AD NAGEL DIRECTIVE Health Care Decision (hx) 06/07/2021 AD NAGEL DIRECTIVE Health Care Decision (hx) 06/07/2021 AD NAGEL DIRECTIVE Health Care Decision (hx) 06/07/2021 AD NAGEL DIRECTIVE Care Teams Raw Silk Grader Relationship Specialty Start Date End Date Anil Bettencourt MD [address] [place] [id number] PCP - General 08/02/01
--- OUTSIDE RECORDS SUMMARY | 2025-01-19 08:45 | XMS_ITS | Encounter Summary ---
Author Organization [facility] Address [address] [place] [address] Care Team Providers Care Regional Account Executive Name Role Phone Anil Bettencourt MD Primary Care Provider Encounter Details Date Type Department Care Team ([facility] Contact Info) Description 11/26/2024 Lab Requisition [facility] - Main Lab [address] [facility] [place] [address] Horace Solomon MD [address] [place] [phone] Encounter for other general examination Social History [...] AM EST Office Visit Adult Medicine - [place] [address] [place] [address] Katharine Wadsworth MD [address] [place] [address] 03/27/2025 1:45 PM EDT [facility] [address] [place] [phone] Joel Colvin MD [address] [place] [address] documented as of this encounter Procedures Procedure Name Priority Date/Time Associated Diagnosis Comments RESPIRATORY VIRUS PANEL MOLECULAR STUDY STAT 11/26/2024 12:30 PM EST Encounter for other general examination documented in this encounter Results * Respiratory virus panel molecular study (11/26/2024 12:30 PM EST) Adenovirus Detection by PCR Not Detected Not Detected LAB MICROBIOLOGY METHOD 11/26/2024 6:03 PM [facility] Influenza A PCR Not Detected Not Detected LAB MICROBIOLOGY METHOD 11/26/2024 6:03 PM [facility] Influenza B PCR Not Detected Not Detected LAB MICROBIOLOGY METHOD 11/26/2024 6:03 PM [facility] Coronavirus 229E Not Detected Not Detected LAB MICROBIOLOGY METHOD 11/26/2024 6:03 PM [facility] Coronavirus HKU1 Not Detected Not Detected LAB MICROBIOLOGY METHOD 11/26/2024 6:03 PM [facility] Coronavirus OC43 Not Detected Not Detected LAB MICROBIOLOGY METHOD 11/26/2024 6:03 PM [facility] Coronavirus NL63 Not Detected Not Detected LAB MICROBIOLOGY METHOD 11/26/2024 6:03 PM [facility] Parainfluenza Virus 1 Not Detected Not Detected LAB MICROBIOLOGY METHOD 11/26/2024 6:03 PM EST [facility] Parainfluenza Virus 2 Not Detected Not Detected LAB MICROBIOLOGY METHOD 11/26/2024 6:03 PM [facility] Parainfluenza Virus 3 Not Detected Not Detected LAB MICROBIOLOGY METHOD 11/26/2024 6:03 PM [facility] Parainfluenza Virus 4 Not Detected Not Detected LAB MICROBIOLOGY METHOD 11/26/2024 6:03 PM [facility] RSV PCR Not Detected Not Detected LAB MICROBIOLOGY METHOD 11/26/2024 6:03 PM [facility] Human Metapneumovirus A and B Not Detected Not Detected LAB MICROBIOLOGY METHOD 11/26/2024 6:03 PM [facility] Rhinovirus/Entero virus Not Detected Not Detected LAB MICROBIOLOGY METHOD 11/26/2024 6:03 PM [facility] Bordetella pertussis Not Detected Not Detected LAB MICROBIOLOGY METHOD 11/26/2024 6:03 PM [facility] Bordetella parapertussis Not Detected Not Detected LAB MICROBIOLOGY METHOD 11/26/2024 6:03 PM [facility] Mycoplasma pneumo by PCR Not Detected Not Detected LAB MICROBIOLOGY METHOD 11/26/2024 6:03 PM [facility] Chlamydia pneumoniae Not Detected Not Detected LAB MICROBIOLOGY METHOD 11/26/2024 6:03 PM [facility] SARS COV-2 Not Detected Not Detected LAB MICROBIOLOGY METHOD 11/26/2024 6:03 PM [facility] Swab 11/26/2024 12:3 0 PM EST 11/26/2024 1:41 PM EST [facility] - 11/26/2024 6:03 PM EST Testing was performed using the [employer] Respiratory Pathogen PCR Assay. All results must [...] that are below the limit of detection. Horace Solomon MD LAB MICROBIOLOGY - GENERAL ORD ERABLES Final Result [facility] [address] [place] [address], documented in this encounter Visit Diagnoses Diagnosis Encounter for other general examination documented in this encounter Additional Health Concerns Infection Onset Date Last Indicated Resolved Time Respiratory Rule-Out 11/26/2024 11/26/2024 024 6:03 PM EST Gastrointestinal Rule-Out 11/30/2024 11/30/2024 7:06 PM EST Assessment Noted Time PHQ-9 Depression Total Score: 0 10/30/20 24 10:57 PM EST documented as of this encounter Care Teams Regional Account Executive Relationship Specialty Start Date End Date Anil Bettencourt MD [address] [place] [phone] PCP - General 08/02/01 documented as of this encounter
--- OUTSIDE RECORDS SUMMARY | 2025-01-19 08:45 | XMS_ITS | Encounter Summary ---
Author Organization [facility] [place] [facility] [place] [address] Care Team Providers Care Auto Glass Installer Name Role Phone Anil Bettencourt MD Primary Care Provider [phone] Encounter Details Date Type Department Care Team (Late st Contact Info) Description 11/23/2024 Lab Requisition [facility] - Main Lab [address] [place] [address] Horace Solomon MD [address] [place] [phone] Other diseases of stomach and duodenum; Encounter for other general examination Social History [...] AM EST Office Visit Adult Medicine - [place] [address] [place] [address] Katharine Wadsworth MD [address] [place] [address] 03/27/2025 1:45 PM EDT Office Visit [facility]ph[facility] - [facility] [address] [place] [address] Joel Colvin MD [address] [place] [address] documented as of this encounter Procedures Procedure Name Priority Date/Time Associated Diagnosis Comments PROTEIN, URINE, RANDOM Routine 11/22/2024 7:55 PM EST Other diseases of stomach and duodenum Encounter for other general examination CREATININE, URINE, RANDOM Routine 11/22/2024 7:55 PM EST Other diseases of stomach and duodenum Encounter for other general examination documented in this encounter Results * Creatinine, urine, random (11/22/2024 7:55 PM EST) Creatinine, Urine 38.0 mg/dL LAB CHEMISTRY METHOD 11/23/2024 10:21 AM EST [facility] Urine Urine specimen obtained by clean catch procedure / Unknown 11/22/2024 7:55 PM EST 11/23/2024 9:24 AM EST us Horace Solomon MD LAB URINE ORDERABLES Final Res ult [facility]) [facility] [address] [place] [address], [place] [phone] * Protein, urine, random (11/22/2024 7:55 PM EST) Protein, Urine 177 mg/dL LAB CHEMISTRY METHOD 11/23/2024 10:21 AM EST [facility] Urine Urine specimen obtained by clean catch procedure / Unknown 11/22/2024 7:55 PM EST 11/23/2024 9:24 AM EST us Horace Solomon MD LAB URINE ORDERABLES Final Res ult [facility] [address] [place] [address], documented in this encounter Visit Diagnoses Diagnosis Other diseases of stomach and duodenum Encounter for other general examination documented in this encounter Additional Health Concerns Infection Onset Date Last Indicated Resolved Time Respiratory Rule-Out 11/26/2024 11/26/2024 024 6:03 PM EST Gastrointestinal Rule-Out 11/30/2024 11/30/2024 7:06 PM EST Assessment Noted Time PHQ-9 Depression Total Score: 0 10/30/20 24 10:57 PM EST documented as of this encounter Care Teams Auto Glass Installer Relationship Specialty Start Date End Date Anil Bettencourt MD [address] [place] [address] PCP - General 08/02/01 documented as of this encounter
--- OUTSIDE RECORDS SUMMARY | 2025-01-19 08:45 | XMS_ITS | Encounter Summary ---
Author Organization [facility] Address [address] [place] [address] Care Team Providers Care Hatch Boss Name Role Phone Anil Bettencourt MD Primary Care Provider [phone] Encounter Details Date Type Department Care Team (Latest Contact Info) Description 01/13/2025 Lab Requisition [facility] - Main Lab [address] [place] [address] Tyree Amador MD [address] [place] [phone] Chronic kidney disease, unspecified; Type 2 diabetes mellitus with hyperglycemia (CMS/HCC) Social History Tobacco Use Types Packs/Day Years [...] your loved ones. For example, early childhood worker or elderly care for an older adult? [...] AM EST Office Visit Adult Medicine - [place] [address] [place] [address] Katharine Wadsworth MD [address] [place] [address] 03/27/2025 1:45 PM EDT [facility] [address] [place] [address] Joel Colvin MD [address] [place] [address] documented as of this encounter Procedures Procedure Name Priority Date/Time Associated Diagnosis Comments COMPLETE BLOOD COUNT Routine 01/15/2025 6:08 AM EST Chronic kidney disease, unspecified Type 2 diabetes mellitus with hyperglycemia ([facility]/HCC) COMPREHENSIVE METABOLIC PANEL Routine 01/15/2025 6:08 AM EST Chronic kidney disease, unspecified Type 2 diabetes mellitus with hyperglycemia ([facility]/HCC) documented in this encounter Results * (ABNORMAL) Comprehensive metabolic panel (01/15/2025 6:08 AM EST) Sodium 143 133 - 145 mmol/L LAB CHEMISTRY METHOD 01/15/2025 10:44 AM [facility] Potassium 4.0 3.5 - 5.5 mmol/L LAB CHEMISTRY METHOD 01/15/2025 10:44 AM [facility] Comment:Hemolysis present Chloride 109 96 - 110 mmol/L LAB CHEMISTRY METHOD 01/15/2025 10:44 AM [facility] CO2 25 21 - 32 mmol/L LAB CHEMISTRY METHOD 01/15/2025 10:44 AM [facility] Anion Gap 9 3 - 11 LAB CHEMISTRY METHOD 01/15/2025 10:44 AM [facility] Glucose 123(H) 70 - 100 mg/dL LAB CHEMISTRY METHOD 01/15/2025 10:44 AM [facility] BUN 42(H) 5 - 25 mg/dL LAB CHEMISTRY METHOD 01/15/2025 10:44 AM [facility] Creatinine 2.88(H) 0.50 - 1.10 mg/dL LAB CHEMISTRY METHOD 01/15/2025 10:44 AM [facility] eGFR 16(L) >=60 mL/min/1. 73m2 LAB CHEMISTRY METHOD 01/15/2025 10:44 AM [facility] Comment:Calculation based on the??Chronic Kidney Disease Epidemiology Collaboration (CKD-EPI) equation refit??without adjustment for race. BUN/Creatinine Ratio 14.6 LAB CHEMISTRY METHOD 01/15/2025 10:44 AM [facility] Calcium 8.5 8.5 - 10.5 mg/dL LAB CHEMISTRY METHOD 01/15/2025 10:44 AM [facility] AST (SGOT) 21 10 - 42 unit/L LAB CHEMISTRY METHOD 01/15/2025 10:44 AM [facility] Comment:Hemolysis present ALT (SGPT) 12 10 - 60 unit/L LAB CHEMISTRY METHOD 01/15/2025 10:44 AM [facility] Alkaline Phosphatase 157(H) 42 - 121 unit/L LAB CHEMISTRY METHOD 01/15/2025 10:44 AM [facility] Total Protein 6.4 6.0 - 8.0 g/dL LAB CHEMISTRY METHOD 01/15/2025 10:44 AM [facility] Albumin 3.0(L) 3.2 - 5.0 g/dL LAB CHEMISTRY METHOD 01/15/2025 10:44 AM [facility] Total Bilirubin 0.7 0.0 - 1.4 mg/dL LAB CHEMISTRY METHOD 01/15/2025 10:44 AM [facility] Blood Venous blood specimen / Unknown Venipuncture / Unknown 01/15/2025 6:08 AM EST 01/15/2025 9:46 AM EST us Tyree Amador MD LAB BLOOD ORDERABLES Final Resu lt [facility] [address] [place] [address], * (ABNORMAL) Complete blood count (01/15/2025 6:08 AM EST) WBC 6.1 4.8 - 10.8 K/mcL LAB HEMETOLOGY METHOD 01/15/2025 10:33 AM [facility] RBC 2.80(L) 3.80 - 4.80 M/mcL LAB HEMETOLOGY METHOD 01/15/2025 10:33 AM [facility] Hemoglobin 8.4(L) 11.5 - 16.0 g/dL LAB HEMETOLOGY METHOD 01/15/2025 10:33 AM [facility] Hematocrit 26.2(L) 35.0 - 47.0 % LAB HEMETOLOGY METHOD 01/15/2025 10:33 AM [facility] MCV 93.6 79.0 - 98.0 FL LAB HEMETOLOGY METHOD 01/15/2025 10:33 AM [facility] MCH 30.0 27.0 - 32.0 pcg LAB HEMETOLOGY METHOD 01/15/2025 10:33 AM [facility] MCHC 32.1 32.0 - 37.0 g/dL LAB HEMETOLOGY METHOD 01/15/2025 10:33 AM [facility] RDW 14.0 11.0 - 15.0 % LAB HEMETOLOGY METHOD 01/15/2025 10:33 AM [facility] Platelets 225 130 - 400 K/mcL LAB HEMETOLOGY METHOD 01/15/2025 10:33 AM EST [facility] MPV 11.8(H) 7.0 - 11.0 FL LAB HEMETOLOGY METHOD 01/15/2025 10:33 AM EST [facility] NRBC 0.0 <1.0 % LAB HEMETOLOGY METHOD 01/15/2025 10:33 AM EST [facility] NRBC Absolute 0.00 <0.10 K/mcL LAB HEMETOLOGY METHOD 01/15/2025 10:33 AM EST [facility] Blood Venous blood specimen / Unknown Venipuncture / Unknown 01/15/2025 6:08 AM EST 01/15/2025 9:50 AM EST us Tyree Amador MD LAB BLOOD ORDERABLES Final Resu lt [facility] [address] [place] [address], documented in this encounter Visit Diagnoses Diagnosis Chronic kidney disease, unspecified Type 2 diabetes mellitus with hyperglycemia (CMS/HCC) documented in this encounter Additional Health Concerns Assessment Noted Time PHQ-9 Depression Total Score: 0 10/30/20 24 10:57 PM EST documented as of this encounter Care Teams Hatch Boss Relationship Specialty Start Date End Date Anil Bettencourt MD [address] [place] [address] PCP - General 08/02/01 documented as of this encounter
--- OUTSIDE RECORDS SUMMARY | 2025-01-19 08:45 | XMS_ITS | Encounter Summary ---
Author Organization [facility] Address [address] [place] [address] Care Team Providers Care Auto Body Repair Technician Name Role Phone Anil Bettencourt MD Primary Care Provider [phone] Encounter Details Date Type Department Care Team ([facility] Contact Info) Description 11/24/2024 Lab Requisition [facility] - Main Lab [address] [place] [address] Horace Solomon MD [address] [place] [address] Encounter for other general examination Social History [...] your loved ones. For example, child care attendant or elderly care for [...] AM EST Office Visit Adult Medicine - [place] [address] [place] [phone] Katharine Wadsworth MD [address] [place] [address] 03/27/2025 1:45 PM EDT [facility] [address] [place] [phone] Joel Colvin MD [address] [place] [address] documented as of this encounter Procedures Procedure Name Priority Date/Time Associated Diagnosis Comments COMPLETE BLOOD COUNT Routine 11/24/2024 5:55 AM EST Encounter for other general examination BASIC METABOLIC PANEL Routine 11/24/2024 5:55 AM EST Encounter for other general examination documented in this encounter Results * (ABNORMAL) Complete blood count (11/24/2024 5:55 AM EST) WBC 6.2 4.8 - 10.8 K/mcL LAB HEMETOLOGY METHOD 11/24/2024 11:00 AM [facility] RBC 2.60(L) 3.80 - 4.80 M/mcL LAB HEMETOLOGY METHOD 11/24/2024 11:00 AM [facility] Hemoglobin 7.9(L) 11.5 - 16.0 g/dL LAB HEMETOLOGY METHOD 11/24/2024 11:00 AM [facility] Hematocrit 24.4(L) 35.0 - 47.0 % LAB HEMETOLOGY METHOD 11/24/2024 11:00 AM [facility] MCV 92.8 79.0 - 98.0 FL LAB HEMETOLOGY METHOD 11/24/2024 11:00 AM [facility] MCH 30.0 27.0 - 32.0 pcg LAB HEMETOLOGY METHOD 11/24/2024 11:00 AM EST [facility] MCHC 32.4 32.0 - 37.0 g/dL LAB HEMETOLOGY METHOD 11/24/2024 11:00 AM [facility] RDW 13.5 11.0 - 15.0 % LAB HEMETOLOGY METHOD 11/24/2024 11:00 AM [facility] Platelets 315 130 - 400 K/mcL LAB HEMETOLOGY METHOD 11/24/2024 11:00 AM [facility] MPV 10.5 7.0 - 11.0 FL LAB HEMETOLOGY METHOD 11/24/2024 11:00 AM [facility] NRBC 0.0 <1.0 % LAB HEMETOLOGY METHOD 11/24/2024 11:00 AM [facility] NRBC Absolute 0.00 <0.10 K/mcL LAB HEMETOLOGY METHOD 11/24/2024 11:00 AM [facility] Blood Venous blood specimen / Unknown Venipuncture / Unknown 11/24/2024 5:55 AM EST 11/24/2024 8:56 AM EST us Horace Solomon MD LAB BLOOD ORDERABLES Final Res ult [facility] [address] [place] [address], * (ABNORMAL) Basic metabolic panel (11/24/2024 5:55 AM EST) Sodium 139 133 - 145 mmol/L LAB CHEMISTRY METHOD 11/24/2024 10:25 AM [facility] Potassium 3.5 3.5 - 5.5 mmol/L LAB CHEMISTRY METHOD 11/24/2024 10:25 AM EST [facility] Chloride 106 96 - 110 mmol/L LAB CHEMISTRY METHOD 11/24/2024 10:25 AM [facility] CO2 24 21 - 32 mmol/L LAB CHEMISTRY METHOD 11/24/2024 10:25 AM [facility] Anion Gap 9 3 - 11 LAB CHEMISTRY METHOD 11/24/2024 10:25 AM [facility] Glucose 100 70 - 100 mg/dL LAB CHEMISTRY METHOD 11/24/2024 10:25 AM [facility] BUN 66(H) 5 - 25 mg/dL LAB CHEMISTRY METHOD 11/24/2024 10:25 AM [facility] Creatinine 3.30(H) 0.50 - 1.10 mg/dL LAB CHEMISTRY METHOD 11/24/2024 10:25 AM [facility] eGFR 14(L) >=60 mL/min/1. 73m2 LAB CHEMISTRY METHOD 11/24/2024 10:25 AM [facility] Comment:Calculation based on the??Chronic Kidney Disease Epidemiology Collaboration (CKD-EPI) equation refit??without adjustment for race. BUN/Creatinine Ratio 20.0 LAB CHEMISTRY METHOD 11/24/2024 10:25 AM [facility] Calcium 8.6 8.5 - 10.5 mg/dL LAB CHEMISTRY METHOD 11/24/2024 10:25 AM [facility] Blood Venous blood specimen / Unknown Venipuncture / Unknown 11/24/2024 5:55 AM EST 11/24/2024 8:56 AM EST us Horace Solomon MD LAB BLOOD ORDERABLES Final Res ult [facility] [address] [place] [address], documented in this encounter Visit Diagnoses Diagnosis Encounter for other general examination documented in this encounter Additional Health Concerns Infection Onset Date Last Indicated Resolved Time Respiratory Rule-Out 11/26/2024 11/26/2024 024 6:03 PM EST Gastrointestinal Rule-Out 11/30/2024 11/30/2024 7:06 PM EST Assessment Noted Time PHQ-9 Depression Total Score: 0 10/30/20 10:57 PM EST documented as of this encounter Care Teams Auto Body Repair Technician Relationship Specialty Start Date End Date Anil Bettencourt MD [address] [place] [address] PCP - General 08/02/01 documented as of this encounter
--- OUTSIDE RECORDS SUMMARY | 2025-01-19 08:45 | XMS_ITS | Encounter Summary ---
Author Organization [facility] Address [address] [place] [address] Care Team Providers Care Urgent Care Name Role Phone Anil Bettencourt MD Primary Care Provider [phone] Encounter Details Date Type Department Care Team (Latest Contact Info) Description 01/10/2025 Lab Requisition [facility] - Main Lab [address] [place] [address] Tyree Amador MD [address] [place] [phone] Type 2 diabetes mellitus with hyperglycemia [...] for your loved ones. For example, child welfare social worker or elderly care for an older [...] AM EST Office Visit Adult Medicine - [place] [address] [place] [address] Katharine Wadsworth MD [address] [place] [address] 03/27/2025 1:45 PM EDT [facility] [address] [place] [address] Joel Colvin MD [address] [place] [address] documented as of this encounter Procedures Procedure Name Priority Date/Time Associated Diagnosis Comments COMPLETE BLOOD COUNT Routine 01/11/2025 5:48 AM EST Type 2 diabetes mellitus with hyperglycemia ([facility]/HCC) Chronic kidney disease, unspecified BASIC METABOLIC PANEL Routine 01/11/2025 5:48 AM EST Type 2 diabetes mellitus with hyperglycemia ([facility]/HCC) Chronic kidney disease, unspecified documented in this encounter Results * (ABNORMAL) Basic metabolic panel (01/11/2025 5:48 AM EST) Sodium 140 133 - 145 mmol/L LAB CHEMISTRY METHOD 01/11/2025 11:04 AM [facility] Potassium 4.3 3.5 - 5.5 mmol/L LAB CHEMISTRY METHOD 01/11/2025 11:04 AM [facility] Comment:Hemolysis present Chloride 110 96 - 110 mmol/L LAB CHEMISTRY METHOD 01/11/2025 11:04 AM [facility] CO2 24 21 - 32 mmol/L LAB CHEMISTRY METHOD 01/11/2025 11:04 AM [facility] Anion Gap 6 3 - 11 LAB CHEMISTRY METHOD 01/11/2025 11:04 AM [facility] Glucose 78 70 - 100 mg/dL LAB CHEMISTRY METHOD 01/11/2025 11:04 AM [facility] BUN 44(H) 5 - 25 mg/dL LAB CHEMISTRY METHOD 01/11/2025 11:04 AM [facility] Creatinine 2.75(H) 0.50 - 1.10 mg/dL LAB CHEMISTRY METHOD 01/11/2025 11:04 AM [facility] eGFR 17(L) >=60 mL/min/1. 73m2 LAB CHEMISTRY METHOD 01/11/2025 11:04 AM [facility] Comment:Calculation based on the??Chronic Kidney Disease Epidemiology Collaboration (CKD-EPI) equation refit??without adjustment for race. BUN/Creatinine Ratio 16.0 LAB CHEMISTRY METHOD 01/11/2025 11:04 AM [facility] Calcium 8.7 8.5 - 10.5 mg/dL LAB CHEMISTRY METHOD 01/11/2025 11:04 AM [facility] Blood Venous blood specimen / Unknown Venipuncture / Unknown 01/11/2025 5:48 AM EST 01/11/2025 10:20 AM EST us Tyree Amador MD LAB BLOOD ORDERABLES Final Resu lt [facility] [address] [place] [address], * (ABNORMAL) Complete blood count (01/11/2025 5:48 AM EST) WBC 5.8 4.8 - 10.8 K/mcL LAB HEMETOLOGY METHOD 01/11/2025 10:45 AM [facility] RBC 3.00(L) 3.80 - 4.80 M/mcL LAB HEMETOLOGY METHOD 01/11/2025 10:45 AM [facility] Hemoglobin 8.8(L) 11.5 - 16.0 g/dL LAB HEMETOLOGY METHOD 01/11/2025 10:45 AM EST [facility] Hematocrit 27.9(L) 35.0 - 47.0 % LAB HEMETOLOGY METHOD 01/11/2025 10:45 AM [facility] MCV 94.6 79.0 - 98.0 FL LAB HEMETOLOGY METHOD 01/11/2025 10:45 AM [facility] MCH 29.8 27.0 - 32.0 pcg LAB HEMETOLOGY METHOD 01/11/2025 10:45 AM [facility] MCHC 31.5(L) 32.0 - 37.0 g/dL LAB HEMETOLOGY METHOD 01/11/2025 10:45 AM [facility] RDW 14.1 11.0 - 15.0 % LAB HEMETOLOGY METHOD 01/11/2025 10:45 AM [facility] Platelets 246 130 - 400 K/mcL LAB HEMETOLOGY METHOD 01/11/2025 10:45 AM [facility] MPV 11.3(H) 7.0 - 11.0 FL LAB HEMETOLOGY METHOD 01/11/2025 10:45 AM [facility] NRBC 0.0 <1.0 % LAB HEMETOLOGY METHOD 01/11/2025 10:45 AM [facility] NRBC Absolute 0.00 <0.10 K/mcL LAB HEMETOLOGY METHOD 01/11/2025 10:45 AM [facility] Blood Venous blood specimen / Unknown Venipuncture / Unknown 01/11/2025 5:48 AM EST 01/11/2025 10:20 AM EST us Tyree Amador MD LAB BLOOD ORDERABLES Final Resu lt [facility] [address] [place] [address], documented in this encounter Visit Diagnoses Diagnosis Type 2 diabetes mellitus with hyperglycemia (CMS/HCC) Chronic kidney disease, unspecified documented in this encounter Additional Health Concerns Assessment Noted Time PHQ-9 Depression Total Score: 0 10/30/20 24 10:57 PM EST documented as of this encounter Care Teams Urgent Care Relationship Specialty Start Date End Date Anil Bettencourt MD [address] [place] [address] PCP - General 08/02/01 documented as of this encounter
--- OUTSIDE RECORDS SUMMARY | 2025-01-19 08:45 | XMS_ITS | Encounter Summary ---
Author Organization [facility] Address [address] [place] [address] Care Team Providers Care Glass Cutting Machine Feeder Name Role Phone Anil Bettencourt MD Primary Care Provider [phone] Encounter Details Date Type Department Care Team ([facility] Contact Info) Description 11/23/2024 Lab Requisition [facility] - Main Lab [address] [place] [address] Horace Solomon MD [address] [place] [address] Encounter for other general examination Social History [...] your loved ones. For example, child care lead teacher or elderly care for an older [...] AM EST Office Visit Adult Medicine - [place] [address] [place] [phone] Katharine Wadsworth MD [address] [place] [address] 03/27/2025 1:45 PM EDT Office Visit Nephrology - [facility] [address] [facility] [place] [phone] Joel Colvin MD [address] [place] [address] documented as of this encounter Procedures Procedure Name Priority Date/Time Associated Diagnosis Comments COMPLETE BLOOD COUNT Routine 11/23/2024 6:01 AM EST Encounter for other general examination COMPREHENSIVE METABOLIC PANEL Routine 11/23/2024 6:01 AM EST Encounter for other general examination documented in this encounter Results * (ABNORMAL) Complete blood count (11/23/2024 6:01 AM EST) WBC 5.7 4.8 - 10.8 K/mcL LAB HEMETOLOGY METHOD 11/23/2024 9:50 AM [facility] RBC 2.60(L) 3.80 - 4.80 M/mcL LAB HEMETOLOGY METHOD 11/23/2024 9:50 AM [facility] Hemoglobin 7.9(L) 11.5 - 16.0 g/dL LAB HEMETOLOGY METHOD 11/23/2024 9:50 AM [facility] Hematocrit 23.9(L) 35.0 - 47.0 % LAB HEMETOLOGY METHOD 11/23/2024 9:50 AM [facility] MCV 90.9 79.0 - 98.0 FL LAB HEMETOLOGY METHOD 11/23/2024 9:50 AM [facility] MCH 30.0 27.0 - 32.0 pcg LAB HEMETOLOGY METHOD 11/23/2024 9:50 AM EST [facility] MCHC 33.1 32.0 - 37.0 g/dL LAB HEMETOLOGY METHOD 11/23/2024 9:50 AM EST [facility] RDW 13.2 11.0 - 15.0 % LAB HEMETOLOGY METHOD 11/23/2024 9:50 AM EST [facility] Platelets 328 130 - 400 K/mcL LAB HEMETOLOGY METHOD 11/23/2024 9:50 AM EST [facility] MPV 10.3 7.0 - 11.0 FL LAB HEMETOLOGY METHOD 11/23/2024 9:50 AM EST [facility] NRBC 0.0 <1.0 % LAB HEMETOLOGY METHOD 11/23/2024 9:50 AM EST [facility] NRBC Absolute 0.00 <0.10 K/mcL LAB HEMETOLOGY METHOD 11/23/2024 9:50 AM [facility] Blood Venous blood specimen / Unknown Venipuncture / Unknown 11/23/2024 6:01 AM EST 11/23/2024 8:50 AM EST us Horace Solomon MD LAB BLOOD ORDERABLES Final Res ult [facility] [address] [place] [address], * (ABNORMAL) Comprehensive metabolic panel (11/23/2024 6:01 AM EST) Sodium 140 133 - 145 mmol/L LAB CHEMISTRY METHOD 11/23/2024 10:06 AM [facility] Potassium 3.6 3.5 - 5.5 mmol/L LAB CHEMISTRY METHOD 11/23/2024 10:06 AM EST [facility] Chloride 105 96 - 110 mmol/L LAB CHEMISTRY METHOD 11/23/2024 10:06 AM [facility] CO2 27 21 - 32 mmol/L LAB CHEMISTRY METHOD 11/23/2024 10:06 AM [facility] Anion Gap 8 3 - 11 LAB CHEMISTRY METHOD 11/23/2024 10:06 AM [facility] Glucose 134(H) 70 - 100 mg/dL LAB CHEMISTRY METHOD 11/23/2024 10:06 AM [facility] BUN 69(H) 5 - 25 mg/dL LAB CHEMISTRY METHOD 11/23/2024 10:06 AM [facility] Creatinine 3.62(H) 0.50 - 1.10 mg/dL LAB CHEMISTRY METHOD 11/23/2024 10:06 AM [facility] eGFR 12(L) >=60 mL/min/1. 73m2 LAB CHEMISTRY METHOD 11/23/2024 10:06 AM [facility] Comment:Calculation based on the??Chronic Kidney Disease Epidemiology Collaboration (CKD-EPI) equation refit??without adjustment for race. BUN/Creatinine Ratio 19.1 LAB CHEMISTRY METHOD 11/23/2024 10:06 AM [facility] Calcium 8.6 8.5 - 10.5 mg/dL LAB CHEMISTRY METHOD 11/23/2024 10:06 AM [facility] AST (SGOT) 13 10 - 42 unit/L LAB CHEMISTRY METHOD 11/23/2024 10:06 AM [facility] ALT (SGPT) 11 10 - 60 unit/L LAB CHEMISTRY METHOD 11/23/2024 10:06 AM [facility] Alkaline Phosphatase 160(H) 42 - 121 unit/L LAB CHEMISTRY METHOD 11/23/2024 10:06 AM [facility] Total Protein 6.2 6.0 - 8.0 g/dL LAB CHEMISTRY METHOD 11/23/2024 10:06 AM EST [facility] Albumin 2.7(L) 3.2 - 5.0 g/dL LAB CHEMISTRY METHOD 11/23/2024 10:06 AM EST [facility] Total Bilirubin 0.5 0.0 - 1.4 mg/dL LAB CHEMISTRY METHOD 11/23/2024 10:06 AM EST [facility] Blood Venous blood specimen / Unknown Venipuncture / Unknown 11/23/2024 6:01 AM EST 11/23/2024 8:50 AM EST us Horace Solomon MD LAB BLOOD ORDERABLES Final Res ult [facility] [address] [place] [address], [place] [phone] documented in this encounter Visit Diagnoses Diagnosis Encounter for other general examination documented in this encounter Additional Health Concerns Infection Onset Date Last Indicated Resolved Time Respiratory Rule-Out 11/26/2024 11/26/2024 024 6:03 PM EST Gastrointestinal Rule-Out 11/30/2024 11/30/2024 7:06 PM EST Assessment Noted Time PHQ-9 Depression Total Score: 0 10/30/20 24 10:57 PM EST documented as of this encounter Care Teams Glass Cutting Machine Feeder Relationship Specialty Start Date End Date Anil Bettencourt MD [address] [place] [address] PCP - General 08/02/01 documented as of this encounter
--- OUTSIDE RECORDS SUMMARY | 2025-01-19 08:45 | XMS_ITS | Encounter Summary ---
Author Organization [facility] [place] [address] Care Team Providers Care Steel Post Installer Supervisor Name Role Phone Anil Bettencourt MD Primary Care Provider [phone] Reason for Visit * Reason Onset Date Comments Hospital Follow-up 01/17/2025 Encounter Details Date Type Department Care Team ([facility] st Contact Info) Description 01/17/2025 Telephone Adult Medicine [facility] [address] [place] [phone] Anil Bettencourt MD [address] [place] [address] Hospital Follow-up Social History Tobacco Use Types Packs/Day Years [...] for your loved ones. For example, child protection specialist or elderly care for an older [...] as of this encounter Progress Notes * Nate Guillory RN - 01/17/2025 2:58 PM EST Appointment scheduled * Emmett Avila - 01/17/2025 2:27 PM EST Hospital/ER follow up appointment needed Hospital patient was treated at: [facility] Was this only an ER visit or was the patient admitted to the hospital? Admitted to the hospital/kept overnight Date of visit if ER visit only: n/a If patient was admitted what was the date of discharge? 01-24-25 Reason/diagnosis for visit or stay: Elevated and unstable BP When was the patient told to follow up? 7-10 days Was visit or stay related to an injury? If yes, what was the date of injury (DOI)? No If yes, was the injury due to: Not 3rd green party related documented in this encounter Plan of Treatment Upcoming Encounters Date Type Department Care Team (Late st Contact Info) Description 01/29/2025 10:30 AM EST Office Visit Adult Medicine [facility] [address] [place] [address] Katharine Wadsworth MD [address] [place] [address] 03/27/2025 1:45 PM EDT Office Visit Nephrology - [place] [address] [place] [phone] Joel Colvin MD [address] [place] [address] documented as of this encounter Visit Diagnoses Not on filedocumented in this encounter Additional Health Concerns Assessment Noted Time PHQ-9 Depression Total Score: 0 10/30/20 24 10:57 PM EST documented as of this encounter Care Teams Steel Post Installer Supervisor Relationship Specialty Start Date End Date Anil Bettencourt MD [address] [place] [address] PCP - General 08/02/01 documented as of this encounter
--- OUTSIDE RECORDS SUMMARY | 2025-01-19 08:45 | XMS_ITS | Encounter Summary ---
Author Organization [facility] Address [address] [place] [address] Care Team Providers Care Seo Strategist Name Role Phone Anil Bettencourt MD Primary Care Provider [phone] Encounter Details Date Type Department Care Team (Latest Contact Info) Description 01/17/2025 Lab Requisition [facility] - Main Lab [address] [place] [address] Tyree Amador MD [address] [place] [phone] Type 2 diabetes mellitus with hyperglycemia [...] for your loved ones. For example, child adolescent care or elderly care for an older adult? [...] AM EST Office Visit Adult Medicine - [place] [address] [place] [address] Katharine Wadsworth MD [address] [place] [address] 03/27/2025 1:45 PM EDT [facility] [address] [place] [address] Joel Colvin MD [address] [place] [address] documented as of this encounter Procedures Procedure Name Priority Date/Time Associated Diagnosis Comments COMPLETE BLOOD COUNT Routine 01/18/2025 6:08 AM EST Type 2 diabetes mellitus with hyperglycemia (CMS/HCC) Chronic kidney disease, unspecified BASIC METABOLIC PANEL Routine 01/18/2025 5:08 AM EST Type 2 diabetes mellitus with hyperglycemia ([facility]/HCC) Chronic kidney disease, unspecified documented in this encounter Results * (ABNORMAL) Complete blood count (01/18/2025 6:08 AM EST) WBC 9.8 4.8 - 10.8 K/mcL LAB HEMETOLOGY METHOD 01/18/2025 9:41 AM [facility] RBC 2.70(L) 3.80 - 4.80 M/mcL LAB HEMETOLOGY METHOD 01/18/2025 9:41 AM [facility] Hemoglobin 8.2(L) 11.5 - 16.0 g/dL LAB HEMETOLOGY METHOD 01/18/2025 9:41 AM [facility] Hematocrit 26.2(L) 35.0 - 47.0 % LAB HEMETOLOGY METHOD 01/18/2025 9:41 AM EST [facility] MCV 96.0 79.0 - 98.0 FL LAB HEMETOLOGY METHOD 01/18/2025 9:41 AM EST [facility] MCH 30.0 27.0 - 32.0 pcg LAB HEMETOLOGY METHOD 01/18/2025 9:41 AM [facility] MCHC 31.3(L) 32.0 - 37.0 g/dL LAB HEMETOLOGY METHOD 01/18/2025 9:41 AM EST [facility] RDW 14.3 11.0 - 15.0 % LAB HEMETOLOGY METHOD 01/18/2025 9:41 AM [facility] Platelets 207 130 - 400 K/mcL LAB HEMETOLOGY METHOD 01/18/2025 9:41 AM [facility] MPV 11.1(H) 7.0 - 11.0 FL LAB HEMETOLOGY METHOD 01/18/2025 9:41 AM EST [facility] NRBC 0.0 <1.0 % LAB HEMETOLOGY METHOD 01/18/2025 9:41 AM [facility] NRBC Absolute 0.00 <0.10 K/mcL LAB HEMETOLOGY METHOD 01/18/2025 9:41 AM [facility] Blood Venous blood specimen / Unknown 01/18/2025 6:08 AM EST 01/18/2025 9:21 AM EST us Tyree Amador MD LAB BLOOD ORDERABLES Final Resu lt [facility] [address] [place] [address], * (ABNORMAL) Basic metabolic panel (01/18/2025 5:08 AM EST) Sodium 140 133 - 145 mmol/L LAB CHEMISTRY METHOD 01/18/2025 9:50 AM [facility] Potassium 3.6 3.5 - 5.5 mmol/L LAB CHEMISTRY METHOD 01/18/2025 9:50 AM [facility] Chloride 106 96 - 110 mmol/L LAB CHEMISTRY METHOD 01/18/2025 9:50 AM [facility] CO2 24 21 - 32 mmol/L LAB CHEMISTRY METHOD 01/18/2025 9:50 AM [facility] Anion Gap 10 3 - 11 LAB CHEMISTRY METHOD 01/18/2025 9:50 AM [facility] Glucose 122(H) 70 - 100 mg/dL LAB CHEMISTRY METHOD 01/18/2025 9:50 AM [facility] BUN 43(H) 5 - 25 mg/dL LAB CHEMISTRY METHOD 01/18/2025 9:50 AM [facility] Creatinine 2.82(H) 0.50 - 1.10 mg/dL LAB CHEMISTRY METHOD 01/18/2025 9:50 AM [facility] eGFR 17(L) >=60 mL/min/1. 73m2 LAB CHEMISTRY METHOD 01/18/2025 9:50 AM [facility] Comment:Calculation based on the??Chronic Kidney Disease Epidemiology Collaboration (CKD-EPI) equation refit??without adjustment for race. BUN/Creatinine Ratio 15.2 LAB CHEMISTRY METHOD 01/18/2025 9:50 AM [facility] Calcium 8.3(L) 8.5 - 10.5 mg/dL LAB CHEMISTRY METHOD 01/18/2025 9:50 AM [facility] Blood Venous blood specimen / Unknown 01/18/2025 5:08 AM EST 01/18/2025 9:20 AM EST us Tyree Amador MD LAB BLOOD ORDERABLES Final Resu lt [facility] [address] [place] [address], [place] [phone] documented in this encounter Visit Diagnoses Diagnosis Type 2 diabetes mellitus with hyperglycemia (CMS/HCC) Chronic kidney disease, unspecified documented in this encounter Additional Health Concerns Assessment Noted Time PHQ-9 Depression Total Score: 0 10/30/20 24 10:57 PM EST documented as of this encounter Care Teams Seo Strategist Relationship Specialty Start Date End Date Anil Bettencourt MD [address] [place] [address] PCP - General 08/02/01 documented as of this encounter
--- NOTE | 2025-01-19 08:46 | PC.NURSE ---
Pt taken to CT Scan without incident with RN and RT escort. Pt tolerated well.
--- NOTE | 2025-01-19 09:43 | P.HPCC_ITS ---
History of Present Illness Date of Service: 01/19/25 Attending physician on admission: Carmen Rodriguez Chief Complaint: Acute Respiratory Failure Patient is a 79 Y F w/ hypertension, hyperlipidemia, diabetes mellitus, c/b CAD, prior CVA c/b R hemiparesis, hypothyroidism, and LUANA presenting from nursing facility to emergency department on 01/19 w/ obtundation, found to be hypoxic; in emergency department, patient intubated, found to have CT C c/f pulmonary edema and/or pneumonia Review of Systems 2 Review of Systems: Yes unobtainable due to endotracheal tube and Unobtainable due to mental condition [facility] Past Medical History Medical History (Updated 01/19/25 @ 12:46 by Carmen Rodriguez MD) Dementia Right hemiparesis Cerebrovascular accident Toe amputee Mild cognitive impairment Tremors of nervous system Obstructive sleep apnea C. difficile colitis Septic shock Arthritis Hyperlipidemia CKD (chronic kidney disease) Hypothyroid HTN (hypertension) CAD (coronary artery disease) Diabetes Amputation of toe H/O nephrolithotomy with removal of calculi Family History Family History Mother FH: lung cancer Father No problems noted. Family/Other Heart disease Family/Other Bladder cancer Surgical History Surgical History Hx of heart artery stent Social History Social History Household Members: Family Housing: House Do you presently have visiting nurse or other home services: Yes ([facility]) Alcohol intake: never Patient Tobacco Use Status: Never used Tobacco Use of substances other than those prescribed or required for medical reasons: No Have you been hit, kicked, punched, or otherwise hurt by someone within the past year? If so, by whom?: No Advance Directives: No Advance Directives Information Provided: No Do you have a plan to hurt others: No Plan Recently lost weight without trying: No Nutrition Risks: No Nutritional Risk Patient : No : No Meds Allergies Allergy/AdvReac Type Severity Reaction Status Date / Time pioglitazone [From Actos] Allergy Severe Anaphylaxis Verified 01/19/25 07:00 Active Medications: Current Medications Dextrose (Dextrose 50 % 25 Gm/50 Ml Syringe) 25 gm IVPUSH Q15M PRN; Protocol PRN Reason: per Hypoglycemia Standing Ord. Glucose (Glucose Gel 15 Gm Gel..Gram.) 15 gm PO Q15M PRN; Protocol PRN Reason: per Hypoglycemia Standing Ord. Propofol (Diprivan) 1,000 mg in 100 mls @ 0 mls/hr IVCONT .Q0M KENYA; Protocol Last Admin: 01/19/25 07:09 Dose: 30 mcg/kg/min, 12.96 mls/hr Vancomycin HCl 1,000 mg/Vancomycin HCl 750 mg/ Sodium Chloride 535 mls @ 267.5 mls/hr IV ONCE ONE Stop: 01/19/25 09:59 Last Admin: 01/19/25 08:19 Dose: 267.5 mls/hr Bumetanide 25 mg/ IV (Miscellaneous Supplies) 100 mls @ 8 mls/hr IVCONT .[id number] KENYA Insulin Human Lispro (Insulin Lispro 100 Unit/Ml 3 Ml Vial) 0 unit SUBCUT Q6H [facility]; Protocol Home Medications ?Medication ?Instructions ?Recorded ?Confirmed ?Last Taken ?Type alpha lipoic acid 200 mg capsule 600 mg PO BEDTIME 03/13/22 01/19/25 Unknown History bumetanide 1 mg tablet 1 mg PO Q48H 03/13/22 01/19/25 Unknown History hydralazine 50 mg tablet 75 mg PO QID 03/13/22 01/19/25 Unknown History ascorbic acid (vitamin C) 250 mg 250 mg PO BID 01/13/23 01/19/25 Unknown History tablet mecobalamin (vitamin B12) 1,000 1,000 mcg PO DAILY 01/13/23 01/19/25 Unknown History mcg chewable tablet omeprazole 20 mg capsule,delayed 40 mg PO DAILY@0630 01/13/23 01/19/25 Unknown History release sodium bicarbonate 650 mg tablet 1,300 mg PO TID 01/13/23 01/19/25 Unknown History amlodipine 10 mg tablet 10 mg PO DAILY 04/10/24 01/19/25 Unknown History atorvastatin 20 mg tablet 80 mg PO BEDTIME 04/10/24 01/19/25 Unknown History gabapentin 600 mg tablet 600 mg PO BEDTIME 04/10/24 01/19/25 Unknown History icosapent ethyl 1 gram capsule 1 g PO BID 08/30/24 01/19/25 Unknown History (Vascepa) acetaminophen 325 mg tablet 650 mg PO Q6H PRN Pain/Fever 01/19/25 01/19/25 Unknown History apixaban 2.5 mg tablet (Eliquis) 2.5 mg PO BID 01/19/25 01/19/25 Unknown History bisacodyl 10 mg rectal suppository 10 mg VT DAILY PRN Constipation 01/19/25 01/19/25 Unknown History cholecalciferol (vitamin D3) 50 50 mcg PO DAILY 01/19/25 01/19/25 Unknown History mcg (2,000 unit) tablet (Vitamin D3) clonidine HCl 0.1 mg tablet 0.1 mg PO BID 01/19/25 01/19/25 Unknown History docusate sodium 100 mg capsule 100 mg PO DAILY 01/19/25 01/19/25 Unknown History ferrous sulfate 137 mg (45 mg 137 mg PO DAILY 01/19/25 01/19/25 Unknown History iron) tablet,extended release insulin glargine 100 unit/mL (3 20 unit subcut BEDTIME 01/19/25 01/19/25 Unknown History mL) subcutaneous pen (Lantus Solostar U-100 Insulin) insulin lispro 100 unit/mL 1 sliding scale dose subcut 01/19/25 01/19/25 Unknown History subcutaneous pen (Humalog KwikPen USEASDIRECTD (U-100) Insulin) labetalol 100 mg tablet 100 mg PO DAILY 01/19/25 01/19/25 Unknown History levothyroxine 125 mcg tablet 125 mcg PO DAILY@0600 01/19/25 01/19/25 Unknown History magnesium hydroxide 400 mg/5 mL 5 ml PO DAILY PRN Constipation 01/19/25 01/19/25 Unknown History oral suspension (Milk of Magnesia) magnesium oxide 400 mg PO DAILY 01/19/25 01/19/25 Unknown History polyethylene glycol 3350 17 17 g PO DAILY 01/19/25 01/19/25 Unknown History gram/dose oral powder (Miralax) sennosides 8.6 mg tablet (senna) 17.2 mg PO BEDTIME Constipation 01/19/25 01/19/25 Unknown History Physical Exam 2 Vital Signs: Vital Signs: Last Vital Signs Temp 99.0 F 01/19/25 09:21 Pulse 75 01/19/25 09:21 Resp 14 01/19/25 09:21 BP 134/67 01/19/25 09:21 Pulse Ox 99 01/19/25 09:21 O2 Del Method Mechanical Ventil ation 01/19/25 09:21 FiO2 70 01/19/25 09:21 BMI result Body Mass Index 24.1 Const: Other: intubated, minimally sedated; grimaces; appreciable spontaneous movements General: no acute distress HEENT: Head: Yes normal to inspection, Yes normocephalic and Yes atraumatic Eyes: General: appearance normal, both eyes and all related structures Neck: Neck: Yes normal visual inspection, Yes full ROM, Yes no meningeal signs, Yes trachea midline and Yes supple Chest: Chest palpation & inspection: normal inspection of the chest Resp: Other: no appreciable overt rales, rhonchi, wheezing Effort & Inspection: normal respiratory effort Cardio: Rate: regular rate Rhythm: regular rhythm GI: Inspection: Yes normal to inspection, No Abdominal wall edema and No distended Palpation (GI): Soft to palpation, not firm, nontender, no guarding and not rigid Skin: General skin exam: no rashes or lesions noted Neuro: General: tone normal, moves all extremities and no meningeal signs Extrem: Other: appreciable trace pitting edema to bilateral shins General: Yes normal to inspection, Yes full ROM and Yes capillary refill normal Psych: Other: unable to asses Results Labs 01/19/25 07:00 01/19/25 07:01 Labs: Laboratory Results - last 24 hr 01/19/25 01/19/25 01/19/25 07:00 07:01 07:16 MCV 90.4 MCH 30.0 MCHC 33.2 RDW 14.2 Plt Count 267 MPV 10.5 Immature Gran % (Auto) 1.4 H Neut % (Auto) 87.3 H Lymph % (Auto) 3.2 L [place] % (Auto) 7.3 Eos % (Auto) 0.2 Baso % (Auto) 0.6 Lymph # (Auto) 0.5 L [place] # (Auto) 1.2 Eos # (Auto) 0.0 Baso # (Auto) 0.1 Abs Immat Gran (auto) 0.23 H Absolute Neuts (auto) 14.0 H Absolute Nucleated RBC 0.000 Nucleated RBC % (auto) 0.0 PT 15.9 H INR 1.4 H VBG pH 7.37 VBG pCO2 46 VBG pO2 77 VBG HCO3 27 H VBG O2 Saturation 93.0 VBG Base Excess 2.0 Anion Gap 15 Estim Creat Clear Calc 17.6 Estimated GFR 18 Random Glucose 250 H Lactic Acid 1.3 Calcium 8.8 Magnesium 1.7 Total Bilirubin 1.0 Direct Bilirubin 0.3 AST 18 ALT 11 Alkaline Phosphatase 170 H C-Reactive Protein 11.50 H B-Natriuretic Peptide 755 H Total Protein 7.6 Albumin 3.5 Lipase 17 Urine Color Urine Appearance Urine pH Ur Specific Crossroads Urine Protein Urine Glucose (UA) Urine Ketones Urine Blood Urine Nitrite Ur Leukocyte Esterase Urine RBC Urine WBC Ur Squamous Epith Cells Urine Bacteria Hyaline Casts Influenza Type A (PCR) NEGATIVE Influenza Type B (PCR) NEGATIVE RSV RNA Qual (PCR) NEGATIVE SARS-CoV-2 RNA (RT-PCR) NEGATIVE 01/19/25 07:18 MCV MCH MCHC RDW Plt Count MPV Immature Gran % (Auto) Neut % (Auto) Lymph % (Auto) [place] % (Auto) Eos % (Auto) Baso % (Auto) Lymph # (Auto) [place] # (Auto) Eos # (Auto) Baso # (Auto) Abs Immat Gran (auto) Absolute Neuts (auto) Absolute Nucleated RBC Nucleated RBC % (auto) PT INR VBG pH VBG pCO2 VBG pO2 VBG HCO3 VBG O2 Saturation VBG Base Excess Anion Gap Estim Creat Clear Calc Estimated GFR Random Glucose Lactic Acid Calcium Magnesium Total Bilirubin Direct Bilirubin AST ALT Alkaline Phosphatase C-Reactive Protein B-Natriuretic Peptide Total Protein Albumin Lipase Urine Color Yellow Urine Appearance Clear Urine pH 6.5 Ur Specific Crossroads 1.025 Urine Protein >=1000 (4+) H Urine Glucose (UA) 100 H Urine Ketones Negative Urine Blood Negative Urine Nitrite Negative Ur Leukocyte Esterase Negative Urine RBC 0-2 Urine WBC 0-5 Ur Squamous Epith Cells 0-2 Urine Bacteria None Seen Hyaline Casts 3-5 Influenza Type A (PCR) Influenza Type B (PCR) RSV RNA Qual (PCR) SARS-CoV-2 RNA (RT-PCR) Imaging Radiologist's Impressions: Impressions Head CT 01/19/25 08:11 IMPRESSION: 1. No acute intracranial abnormality. Stable chronic white matter changes likely related to small vessel ischemia. 2. Endotracheal tube and enteric tube course to the oropharynx. 3. Moderate degenerative arthropathy left TM joint. Electronically signed by: Lon Spears MD 01/19/2025 09:15 AM EST RP Chest CT 01/19/25 08:33 IMPRESSION: 1. ET tube, and OG tube in good position. 2. Small layering pleural effusions bilaterally. 3. Mild cardiomegaly, with diffuse consolidations oriented dependently involving the majority of the bilateral posterior upper lobes and lower lobes. Air bronchograms present. Associated upper lobe groundglass opacities with interposed smooth interlobular septal thickening (crazy paving appearance) is highly suggestive of interstitial and alveolar pulmonary edema in this setting. Multifocal pneumonia is not excluded given the appearance. No pneumothorax. 4. Extensive atheromatous coronary and arterial calcifications. Enlarged main pulmonary artery suggests increased pulmonary pressures. 5. Low attenuating prominent mediastinal lymph nodes, nonspecific, but can be seen in the setting of CHF. 6. Cholelithiasis. 7. Enlarged portal veins, likely on the basis of increased right heart pressures. 8. Moderate to severe atrophy of the pancreas. 9. Additional ancillary findings as detailed in the body of the report. Electronically signed by: Lon Spears MD 01/19/2025 09:28 AM EST RP Assessment and Plan (1) Acute hypoxic respiratory failure: Status: Acute (2) Pulmonary edema: Qualifiers: Chronicity: acute Qualified Code(s): J81.0 - Acute pulmonary edema Status: Acute Plan Patient is a 79 Y F w/ hypertension, hyperlipidemia, diabetes mellitus, c/b CAD, prior CVA c/b R hemiparesis, hypothyroidism, and LUANA presenting from nursing facility to emergency department on 01/19 w/ obtundation, found to be hypoxic; in emergency department, patient intubated, found to have CT C c/f pulmonary edema and/or pneumonia N: intubated, sedated w/ propofol gtt, wean as tolerated CV: no acute issues; to continue to monitor R: acute hypoxic respiratory failure, c/f pulmonary edema and/or pneumonia; intubated 01/19, wean as tolerated GI: NPO : acute on chronic renal insufficiency; diuresis as tolerated; to closely monitor renal indices, electrolytes H: no acute issues; chemical DVT prophylaxis w/ heparin SQ ID: c/f pneumonia, empiric vancomycin/zosyn E: diabetes mellitus, insulin sliding scale P: no acute issues
--- NOTE | 2025-01-19 10:10 | PHA.MEDREC ---
Addendum entered by Keon Lombardo 01/19/25 10:30: reviewed Original Note: Pharmacy Consult ? Medication Reconciliation Pharmacy has completed the medication reconciliation. Utilized list from [facility]el[facility] Gordon.
[2025-01-19 10:49] LABS: TSH reflex Free T4 1.74 uIU/mL (0.32-4.0)
[2025-01-19 10:53] LABS: Glucose, Whole Blood 196 mg/dL (60-115)
[2025-01-19] MEDS: Bumetanide 25 MG in Container,Empty 0 ML 8 MG IVCONT ×2 (12:06→18:30)
[2025-01-19] MEDS: Insulin Lispro 100 UNIT/ML 3 ML VIAL SUBCUT ×2 (12:07→17:34)
[2025-01-19] MEDS: propofoL 1,000 MG/100 ML VIAL 8.64 MG IVCONT (12:55)
--- NOTE | 2025-01-19 13:03 | PHA.PROG ---
Admission Date/Time: January 19, 2025 09:34 Indication: Respiratory Weight in k kg Adjusted body weight in Kg: [place] body weight in Kg: Obesity Dosing Indication % IBW: Serum Creatinine - Last 168 Hours 01/19/25 07:01 Creatinine 2.61 H Estimated CrCl and GFR - Last 168 Hours 01/19/25 07:01 Estim Creat Clear Calc 17.6 Estimated GFR 18 Vancomycin Loading Dose:1750mg x 1 Current Vancomycin Dosing Regimen: 500mg Q24H Vancomycin Monitoring using AUC goal of 400 - 600 range with trough as surrogate marker: 464 mg/L Date and Time for next Vancomycin Level to be drawn: 01/20 @0800 Pharmacist Comments on Vancomycin Plan: Due to patient's poor renal function, getting a level after load dose. Predicted trough of 16.6 mg/L Vancomycin dosing will take advantage of qcue as a clinical decision support tool that uses Bayesian modeling to calculate individual patient's pharmacokinetic parameters and forecast the patient's drug concentration time course with the target goal AUC 24 range of 400 - 600 mg/L/hr.
--- NOTE | 2025-01-19 15:44 | MHC.CM.PN ---
Pt intubated and unable to particpate in CM assessment: Met w/pt's two dtrs (also her HCP) to review d/c needs: Pt has been at [facility] since 12/30 for STR. Prior to this, she had been in and out of various rehabs including [facility] and [facility]. At baseline, she resides alone with no services or DME. Her dtrs assist w/transportation and anything else pt needs. Family would like pt to return to [facility] or [facility] / [facility] - referrals made. HCP copy requested, IMM in chart. CM to follow on 01/22 for extubation and PT/OT evals.
[2025-01-19 17:18] LABS: Glucose, Whole Blood 203 mg/dL (60-115)
--- NOTE | 2025-01-19 18:05 | PC.NURSE ---
Assumed care at approx 1400- pt. remains vented and sedated, propofol gtt titrated per MAR. SBPs sustaining 160s-180s, MD aware, no new orders at this time. Pt. SR on tele, HR 70s-80s. OGT to IWS- scant amount of yellow green output. Nunez in place, draining pale yellow urine, bumex gtt running per MAR. Family at bedside, updated by this RN and MD. Q2 repositioning and oral care performed, hovermat system in place. Plan of care ongoing.
[2025-01-19] MEDS: propofoL 1,000 MG/100 ML VIAL 17.28 MG IVCONT (18:18)
[2025-01-19 18:55] LABS: Anion Gap 17 (12-20); Blood Urea Nitrogen 49 mg/dL (9-16); Calcium 8.6 mg/dL (8.4-10.2); Carbon Dioxide 24 mmol/L (22-29); Chloride 106 mmol/L (96-108); Creatinine Clr Calc Pharmacy 15.8; Estimated Glomerular Filt Rate 16; Glucose Random 217 mg/dL (60-115); Magnesium 1.8 mg/dL (1.6-2.6); Phosphorus 3.9 mg/dL (2.7-4.5); Potassium 3.6 mmol/L (3.3-5.1); Sodium 143 mmol/L (135-145)
[2025-01-19 20:00] LABS: Hematocrit 26.7 % (37.0-47.0); Mean Corpuscular HGB Conc 33.7 g/dl (31.0-35.0); Mean Corpuscular Hemoglobin 30.3 pg (27.0-33.0); Mean Corpuscular Volume 89.9 fL (80.0-98.0); Mean Platelet Volume 10.6 fL (9.4-12.3); Platelet Count 207 X10*3/uL (160-400); Red Blood Count 2.97 X10*6/uL (4.20-5.50); Red Cell Distribution Width 14.1 % (11.0-16.0); White Blood Count 12.6 X10*3/uL (4.8-10.8)
[2025-01-19 20:16] LABS: INTERNATIONAL NORM RATIO 1.3 (0.9-1.1); Prothrombin Time 15.6 SEC (10.9-12.4)
[2025-01-19 20:19] LABS: PTT Heparin Drip 39.8 SEC (53-77.9)
[2025-01-19 20:25] LABS: Troponin-I High Sensitivity 1243.3 ng/L (<3.5-17.0)
[2025-01-19] MEDS: Heparin Sodium,Porcine/1/2NS 25,000 UNIT/250 ML IV.SOLN 8.81 UNIT IVCONT (20:27)
[2025-01-19] MEDS: Labetalol HCL 100 MG TABLET PO (20:36)
[2025-01-19] MEDS: Chlorhexidine Gluc Oral Rinse 15 ML MOUTHWASH BUCCAL (20:36)
[2025-01-19] MEDS: hydrALAZINE HCl 20 MG/ML VIAL 10 MG IVPUSH (21:01)
[2025-01-19] MEDS: propofoL 1,000 MG/100 ML VIAL 21.6 MG IVCONT (22:57)
[2025-01-19 23:15] LABS: Glucose, Whole Blood 155 mg/dL (60-115)
[2025-01-20] VITALS (35 sets, daily range): BP systolic 142–186; BP diastolic 62–80; PULSE 64–85; RESP 14–15; TEMP 34.9–37.3; O2SAT 96–98; BMI 24.2
[2025-01-20 02:33] LABS: PTT Heparin Drip 64.8 SEC (53-77.9)
[2025-01-20] MEDS: propofoL 1,000 MG/100 ML VIAL 17.28 MG IVCONT ×4 (02:36→21:43)
[2025-01-20 02:53] LABS: Troponin-I High Sensitivity 1367.4 ng/L (<3.5-17.0)
[2025-01-20 05:45] LABS: VBG HCO3 28 mmol/L (22-26); VBG pCO2 32 mmHg; VBG pH 7.54 (7.32-7.43); VBG pO2 87 mmHg
[2025-01-20 05:46] LABS: Venous Blood Gas Refer to POC result
[2025-01-20 05:49] LABS: Basophils Absolute Auto 0.1 X10*3/uL (0.0-0.2); Basophils Percent Auto 0.6 % (0-2); Eosinophils Percent Auto 0.1 % (0-4); Hematocrit 26.1 % (37.0-47.0); Hemoglobin 8.9 g/dl (12.0-16.0); Imm Gran Abs Auto 0.12 X10*3/uL (0.00-0.03); Imm Gran Pct Auto 1.4 % (0.0-0.4); Lymphocytes Absolute Auto 0.7 X10*3/uL (1.2-4.9); Lymphocytes Percent Auto 7.5 % (20-40); MANUAL DIFF FLAG NO; Mean Corpuscular HGB Conc 34.1 g/dl (31.0-35.0); Mean Corpuscular Hemoglobin 30.7 pg (27.0-33.0); Monocytes Absolute Auto 0.7 X10*3/uL (0.1-1.2); Monocytes Percent Auto 7.8 % (2-11); Neutrophils Absolute Auto 7.2 x10*3/uL (2.0-8.3); Neutrophils Percent Auto 82.6 % (45-73); Platelet Count 215 X10*3/uL (160-400); Red Cell Distribution Width 14.1 % (11.0-16.0); White Blood Count 8.7 X10*3/uL (4.8-10.8)
[2025-01-20 06:01] LABS: INTERNATIONAL NORM RATIO 1.3 (0.9-1.1); Prothrombin Time 15.1 SEC (10.9-12.4)
[2025-01-20 06:04] LABS: Albumin Level 3.1 g/dL (3.5-5.0); Anion Gap 16 (12-20); Blood Urea Nitrogen 50 mg/dL (9-16); Calcium 8.7 mg/dL (8.4-10.2); Carbon Dioxide 25 mmol/L (22-29); Chloride 105 mmol/L (96-108); Creatinine Clr Calc Pharmacy 15.6; Estimated Glomerular Filt Rate 15; Glucose Random 143 mg/dL (60-115); Magnesium 1.8 mg/dL (1.6-2.6); Phosphorus 4.5 mg/dL (2.7-4.5); Potassium 3.4 mmol/L (3.3-5.1); Sodium 143 mmol/L (135-145)
[2025-01-20 06:18] LABS: Troponin-I High Sensitivity 1482.2 ng/L (<3.5-17.0)
[2025-01-20 06:33] LABS: Glucose, Whole Blood 137 mg/dL (60-115)
[2025-01-20] MEDS: Bumetanide 25 MG in Container,Empty 0 ML 8 MG IVCONT ×2 (06:45→18:32)
[2025-01-20] MEDS: Pantoprazole Sodium 40 MG/10 ML VIAL IVPUSH (06:51)
[2025-01-20] MEDS: Piperacillin Sodium/Tazobactam 4.5 GM in 0.9 % Sodium Chloride 100 ML IV ×2 (08:20→20:58)
[2025-01-20] MEDS: Chlorhexidine Gluc Oral Rinse 15 ML MOUTHWASH BUCCAL ×3 (08:21→21:05)
[2025-01-20] MEDS: Labetalol HCL 100 MG TABLET PO (08:21)
[2025-01-20 08:45] LABS: PTT Heparin Drip 63.9 SEC (53-77.9)
[2025-01-20 08:56] LABS: Vancomycin Random 17.5 mcg/mL (15-20)
--- NOTE | 2025-01-20 08:58 | PM.CCPN ---
Subjective Subjective Date of Service: 01/20/25 Interval History: no significant overnight events; appreciable troponinemia, started on heparin gtt, though EKG not overtly ischemic and troponins appear to be plateauing at 1400s Critical Care Time (minutes): 60 Physical Exam Vital Signs: Vital Signs: Last Vital Signs Temp 99.0 F 01/20/25 08:00 Pulse 76 01/20/25 08:21 Resp 14 01/20/25 08:00 BP 167/70 H 01/20/25 08:21 Pulse Ox 97 01/20/25 08:00 O2 Del Method Mechanical Ventil ation 01/20/25 08:00 FiO2 40 01/20/25 08:00 BMI result Body Mass Index 24.2 Const: Other: intubated, minimally sedated; grimaces; moves all extremities spontaneously HEENT: Head: Yes normal to inspection, Yes normocephalic and Yes atraumatic Eyes: General: appearance normal, both eyes and all related structures Neck: Neck: Yes normal visual inspection, Yes full ROM, Yes no meningeal signs, Yes trachea midline and Yes supple Chest: Chest palpation & inspection: normal inspection of the chest Resp: Other: no appreciable overt rales, rhonchi, wheezing Effort & Inspection: normal respiratory effort Cardio: Rate: regular rate Rhythm: regular rhythm GI: Inspection: Yes normal to inspection, No Abdominal wall edema and No distended Palpation (GI): Soft to palpation, not firm, nontender, no guarding and not rigid Skin: General skin exam: no rashes or lesions noted Neuro: General: tone normal, moves all extremities and no meningeal signs Extrem: Other: 1+ pitting edema to bilateral shins General: Yes normal to inspection, Yes full ROM and Yes capillary refill normal Psych: Other: unable to assess Objective Data Labs 01/20/25 05:36 01/20/25 05:36 Labs: Laboratory Results - last 24 hr 01/19/25 01/19/25 01/19/25 09:49 10:49 17:14 WBC RBC Hgb Hct MCV MCH MCHC RDW Plt Count MPV Immature Gran % (Auto) Neut % (Auto) Lymph % (Auto) [place] % (Auto) Eos % (Auto) Baso % (Auto) Lymph # (Auto) [place] # (Auto) Eos # (Auto) Baso # (Auto) Abs Immat Gran (auto) Absolute Neuts (auto) Absolute Nucleated RBC Nucleated RBC % (auto) PT INR aPTT Heparin Protocol VBG pH VBG pCO2 VBG pO2 VBG HCO3 VBG O2 Saturation VBG Base Excess Sodium Potassium Chloride Carbon Dioxide Anion Gap BUN Creatinine Estim Creat Clear Calc Estimated GFR POC Glucose 196 H 203 H Random Glucose Calcium Phosphorus Magnesium Troponin I High Sens Albumin TSH 1.74 Random Vancomycin 01/19/25 01/19/25 01/19/25 18:14 19:51 23:12 WBC 12.6 H RBC 2.97 L Hgb 9.0 L Hct 26.7 L MCV 89.9 MCH 30.3 MCHC 33.7 RDW 14.1 Plt Count 207 MPV 10.6 Immature Gran % (Auto) Neut % (Auto) Lymph % (Auto) [place] % (Auto) Eos % (Auto) Baso % (Auto) Lymph # (Auto) [place] # (Auto) Eos # (Auto) Baso # (Auto) Abs Immat Gran (auto) Absolute Neuts (auto) Absolute Nucleated RBC 0.000 Nucleated RBC % (auto) 0.0 PT 15.6 H INR 1.3 H aPTT Heparin Protocol 39.8 L VBG pH VBG pCO2 VBG pO2 VBG HCO3 VBG O2 Saturation VBG Base Excess Sodium 143 Potassium 3.6 Chloride 106 Carbon Dioxide 24 Anion Gap 17 BUN 49 H Creatinine 2.91 H Estim Creat Clear Calc 15.8 Estimated GFR 16 POC Glucose 155 H Random Glucose 217 H Calcium 8.6 Phosphorus 3.9 Magnesium 1.8 Troponin I High Sens 1192.0 H* D 1243.3 H* Albumin TSH Random Vancomycin 01/20/25 01/20/25 01/20/25 02:05 05:36 05:39 WBC 8.7 RBC 2.90 L Hgb 8.9 L Hct 26.1 L MCV 90.0 MCH 30.7 MCHC 34.1 RDW 14.1 Plt Count 215 MPV 10.0 Immature Gran % (Auto) 1.4 H Neut % (Auto) 82.6 H Lymph % (Auto) 7.5 L [place] % (Auto) 7.8 Eos % (Auto) 0.1 Baso % (Auto) 0.6 Lymph # (Auto) 0.7 L [place] # (Auto) 0.7 Eos # (Auto) 0.0 Baso # (Auto) 0.1 Abs Immat Gran (auto) 0.12 H Absolute Neuts (auto) 7.2 Absolute Nucleated RBC 0.000 Nucleated RBC % (auto) 0.0 PT 15.1 H INR 1.3 H aPTT Heparin Protocol 64.8 D VBG pH 7.54 H VBG pCO2 32 VBG pO2 87 VBG HCO3 28 H VBG O2 Saturation 96.0 VBG Base Excess 6.0 Sodium 143 Potassium 3.4 Chloride 105 Carbon Dioxide 25 Anion Gap 16 BUN 50 H Creatinine 2.94 H Estim Creat Clear Calc 15.6 Estimated GFR 15 POC Glucose Random Glucose 143 H Calcium 8.7 Phosphorus 4.5 Magnesium 1.8 Troponin I High Sens 1367.4 H* 1482.2 H* Albumin 3.1 L TSH Random Vancomycin 01/20/25 01/20/25 06:29 08:07 WBC RBC Hgb Hct MCV MCH MCHC RDW Plt Count MPV Immature Gran % (Auto) Neut % (Auto) Lymph % (Auto) [place] % (Auto) Eos % (Auto) Baso % (Auto) Lymph # (Auto) [place] # (Auto) Eos # (Auto) Baso # (Auto) Abs Immat Gran (auto) Absolute Neuts (auto) Absolute Nucleated RBC Nucleated RBC % (auto) PT INR aPTT Heparin Protocol 63.9 VBG pH VBG pCO2 VBG pO2 VBG HCO3 VBG O2 Saturation VBG Base Excess Sodium Potassium Chloride Carbon Dioxide Anion Gap BUN Creatinine Estim Creat Clear Calc Estimated GFR POC Glucose 137 H Random Glucose Calcium Phosphorus Magnesium Troponin I High Sens Albumin TSH Random Vancomycin 17.5 Progress Note: A&P Assessment and plan (1) Acute hypoxic respiratory failure: Status: Acute (2) Pulmonary edema: Status: Acute (3) Heart failure: Status: Acute Plan Patient is a 79 Y F w/ hypertension, hyperlipidemia, diabetes mellitus, c/b CAD, prior CVA c/b R hemiparesis, hypothyroidism, and LUANA presenting from nursing facility to emergency department on 01/19 w/ obtundation, found to be hypoxic; in emergency department, patient intubated, found to have CT C c/f pulmonary edema and/or pneumonia N: intubated, sedated w/ propofol gtt, wean as tolerated CV: troponinemia, likely d/t demand; echo 01/20 demonstrating LVEF 30% and diastolic dysfunction; diuresis as tolerated, BP control, appreciate cardiology recommendations R: acute hypoxic respiratory failure, c/f pulmonary edema and/or pneumonia; intubated 01/19, wean as tolerated GI: NPO : acute on chronic renal insufficiency; diuresis as tolerated; to closely monitor renal indices, electrolytes H: no acute issues; chemical DVT prophylaxis w/ heparin SQ ID: c/f pneumonia, empiric vancomycin/zosyn E: diabetes mellitus, insulin sliding scale P: no acute issues Quality Stroke Does the patient have a stroke diagnosis?: No VTE Prior VTE?: No VTE Risk Level:: Medical - moderate - high VTE Device Contraindication: N/A - Device Ordered VTE Drug Contraindication: N/A - Med Ordered
--- NOTE | 2025-01-20 09:02 | HE.PHANOTE ---
RE: vanco Level on 01/20 came back at 17.5mg/L; renal function decreased. Delayed next dose until 1999 for 500mg; Getting another level 01/21 @1800
--- NOTE | 2025-01-20 10:02 | PM.CNCAR ---
History of Present Illness History of Present Illness Date of Service: 01/20/25 Chief complaint: respiratory Failure Narrative: This is a cardiology consultation regarding congestive heart failure. Reviewed documentation and also discussed with watch mechanic. Essentially patient with many comorbidities including diabetes, hypertension, dyslipidemia, history of stroke, presenting from nursing facility. It seems that she was hypoxic, obtunded. Then she was intubated. CT scan had shown question of pulmonary edema/pneumonia and then she was admitted to the ICU. Patient is currently intubated. She is being treated for acute hypoxic respiratory failure/pulmonary edema/pneumonia. We are asked to see her for further evaluation. Review of Systems Review of Systems: Unable to obtain. Patient is intubated. [facility] Past Medical History Medical History (Updated 01/20/25 @ 11:55 by Delvin Peralta MD) Dementia Right hemiparesis Cerebrovascular accident Toe amputee Mild cognitive impairment Tremors of nervous system Obstructive sleep apnea C. difficile colitis Septic shock Arthritis Hyperlipidemia CKD (chronic kidney disease) Hypothyroid HTN (hypertension) CAD (coronary artery disease) Diabetes Amputation of toe H/O nephrolithotomy with removal of calculi Family History Family History Mother FH: lung cancer Father No problems noted. Family/Other Heart disease Family/Other Bladder cancer Surgical History Surgical History Hx of heart artery stent Social History Social History Household Members: Family Housing: House Do you presently have visiting nurse or other home services: Yes ([facility]) Alcohol intake: never Patient Tobacco Use Status: Never used Tobacco Use of substances other than those prescribed or required for medical reasons: No Currently Displaying Signs/Symptoms of Drug Intoxication Withdrawal: No Have you been hit, kicked, punched, or otherwise hurt by someone within the past year? If so, by whom?: No Advance Directives: No Advance Directives Information Provided: No Do you have a plan to hurt others: No Plan Recently lost weight without trying: No Nutrition Risks: No Nutritional Risk Patient : No : No Meds Allergies Allergy/AdvReac Type Severity Reaction Status Date / Time pioglitazone [From Actos] Allergy Severe Anaphylaxis Verified 01/19/25 07:00 Active Medications: Current Medications Amlodipine Besylate (Amlodipine Besylate 10 Mg Tablet) 10 mg PO DAILY [facility]; Protocol Atorvastatin Calcium (Atorvastatin Calcium 80 Mg Tablet) 80 mg PO BEDTIME [facility] Chlorhexidine Gluconate (Chlorhexidine Gluc Oral Rinse 15 Ml Mouthwash) 15 ml BUCCAL TID [facility] Last Admin: 01/20/25 08:21 Dose: 15 ml Clonidine HCl (Clonidine Hcl 0.1 Mg Tablet) 0.1 mg PO BID [facility]; Protocol Dextrose (Dextrose 50 % 25 Gm/50 Ml Syringe) 25 gm IVPUSH Q15M PRN; Protocol PRN Reason: per Hypoglycemia Standing Ord. Glucose (Glucose Gel 15 Gm Gel..Gram.) 15 gm PO Q15M PRN; Protocol PRN Reason: per Hypoglycemia Standing Ord. Heparin Sodium (Porcine) (Heparin Sodium,Porcine 5,000 Unit/Ml Vial) 2,900 unit 40 unit/kg (2900 unit) IVPUSH PROTOCOL BOLUS PRN; Protocol PRN Reason: 40 unit/kg - Heparin Protocol Heparin Sodium (Porcine) (Heparin Sodium,Porcine 5,000 Unit/Ml Vial) 5,900 unit 80 unit/kg (5900 unit) IVPUSH PROTOCOL BOLUS PRN; Protocol PRN Reason: 80 unit/kg - Heparin Protocol Hydralazine HCl (Hydralazine Hcl 20 Mg/Ml Vial) 10 mg IVPUSH Q4H PRN; Protocol PRN Reason: Hypertension Propofol (Diprivan) 1,000 mg in 100 mls @ 0 mls/hr IVCONT .Q0M [facility]; Protocol Last Admin: 01/20/25 08:25 Dose: 40 mcg/kg/min, 17.28 mls/hr Vancomycin HCl 500 mg/ Sodium (Chloride) 110 mls @ 110 mls/hr IV Q24H [facility] Piperacillin Sod/Tazobactam (Sod 4.5 gm/ Sodium Chloride) 100 mls @ 200 mls/hr IV Q12H [facility] Last Infusion: 01/20/25 08:54 Dose: Infused Bumetanide 25 mg/ IV (Miscellaneous Supplies) 100 mls @ 8 mls/hr IVCONT .[id number] [facility] Last Admin: 01/20/25 06:45 Dose: 2 mg/hr, 8 mls/hr Heparin Sodium/Sodium Chloride (Heparin Sodium,Porcine/1/2ns) 25,000 unit in 250 mls @ 0 mls/hr IVCONT .Q0M [facility]; Protocol Last Titration: 01/20/25 08:46 Dose: 12 units/kg/hr, 8.81 mls/hr Insulin Human Lispro (Insulin Lispro 100 Unit/Ml 3 Ml Vial) 0 unit SUBCUT Q6H [facility]; Protocol Last Admin: 01/20/25 06:32 Dose: Not Given Labetalol HCl (Labetalol Hcl 100 Mg Tablet) 100 mg PO DAILY [facility]; Protocol Last Admin: 01/20/25 08:21 Dose: 100 mg Pantoprazole Sodium (Pantoprazole Sodium 40 Mg/10 Ml Vial) 40 mg IVPUSH DAILY@0630 [facility] Last Admin: 01/20/25 06:51 Dose: 40 mg Pharmacy Consult (Consult Rx Vancomycin Dosing) 1 each MISCELLANE DAILY PRN PRN Reason: Consult order Home Medications ?Medication ?Instructions ?Recorded ?Confirmed ?Last Taken ?Type alpha lipoic acid 200 mg capsule 600 mg PO BEDTIME 03/13/22 01/19/25 Unknown History bumetanide 1 mg tablet 1 mg PO Q48H 03/13/22 01/19/25 Unknown History hydralazine 50 mg tablet 75 mg PO QID 03/13/22 01/19/25 Unknown History ascorbic acid (vitamin C) 250 mg 250 mg PO BID 01/13/23 01/19/25 Unknown History tablet mecobalamin (vitamin B12) 1,000 1,000 mcg PO DAILY 01/13/23 01/19/25 Unknown History mcg chewable tablet omeprazole 20 mg capsule,delayed 40 mg PO DAILY@0630 01/13/23 01/19/25 Unknown History release sodium bicarbonate 650 mg tablet 1,300 mg PO TID 01/13/23 01/19/25 Unknown History amlodipine 10 mg tablet 10 mg PO DAILY 04/10/24 01/19/25 Unknown History atorvastatin 20 mg tablet 80 mg PO BEDTIME 04/10/24 01/19/25 Unknown History gabapentin 600 mg tablet 600 mg PO BEDTIME 04/10/24 01/19/25 Unknown History icosapent ethyl 1 gram capsule 1 g PO BID 08/30/24 01/19/25 Unknown History (Vascepa) acetaminophen 325 mg tablet 650 mg PO Q6H PRN Pain/Fever 01/19/25 01/19/25 Unknown History apixaban 2.5 mg tablet (Eliquis) 2.5 mg PO BID 01/19/25 01/19/25 Unknown History bisacodyl 10 mg rectal suppository 10 mg PA DAILY PRN Constipation 01/19/25 01/19/25 Unknown History cholecalciferol (vitamin D3) 50 50 mcg PO DAILY 01/19/25 01/19/25 Unknown History mcg (2,000 unit) tablet (Vitamin D3) clonidine HCl 0.1 mg tablet 0.1 mg PO BID 01/19/25 01/19/25 Unknown History docusate sodium 100 mg capsule 100 mg PO DAILY 01/19/25 01/19/25 Unknown History ferrous sulfate 137 mg (45 mg 137 mg PO DAILY 01/19/25 01/19/25 Unknown History iron) tablet,extended release insulin glargine 100 unit/mL (3 20 unit subcut BEDTIME 01/19/25 01/19/25 Unknown History mL) subcutaneous pen (Lantus Solostar U-100 Insulin) insulin lispro 100 unit/mL 1 sliding scale dose subcut 01/19/25 01/19/25 Unknown History subcutaneous pen (Humalog KwikPen USEASDIRECTD (U-100) Insulin) labetalol 100 mg tablet 100 mg PO DAILY 01/19/25 01/19/25 Unknown History levothyroxine 125 mcg tablet 125 mcg PO DAILY@0600 01/19/25 01/19/25 Unknown History magnesium hydroxide 400 mg/5 mL 5 ml PO DAILY PRN Constipation 01/19/25 01/19/25 Unknown History oral suspension (Milk of Magnesia) magnesium oxide 400 mg PO DAILY 01/19/25 01/19/25 Unknown History polyethylene glycol 3350 17 17 g PO DAILY 01/19/25 01/19/25 Unknown History gram/dose oral powder (Miralax) sennosides 8.6 mg tablet (senna) 17.2 mg PO BEDTIME Constipation 01/19/25 01/19/25 Unknown History Physical Exam Vital Signs: Vital Signs: Last Vital Signs Temp 99.0 F 01/20/25 09:00 Pulse 79 01/20/25 09:00 Resp 14 01/20/25 09:00 BP 179/73 H 01/20/25 09:00 Pulse Ox 97 01/20/25 09:00 O2 Del Method Mechanical Ventil ation 01/20/25 09:00 FiO2 40 01/20/25 09:00 BMI result Body Mass Index 24.2 Const: General: ill appearing Orientation/consciousness: patient oriented x3 HEENT: Other: Unremarkable Head: Yes normal to inspection Neck: Neck: Yes normal visual inspection Chest: Chest palpation & inspection: normal inspection of the chest Resp: Other: Limited auscultation but no obvious crackles or wheezing. Could not examine the back as she is intubated. Cardio: Palpation: normal PMI Heart sounds: S1 normal heart sound present, S2 normal heart sound present, no gallops, no murmurs and no rubs GI: Palpation (GI): Soft to palpation Back/Spine/Pelvis: Other: unremarkable Skin: General skin exam: no rashes or lesions noted Neuro: Other: Cannot assess General: patient oriented x3 Extrem: General: Yes normal to inspection Psych: Other: Cannot assess Objective Labs and Meds 01/20/25 05:36 01/20/25 05:36 Lab results: Laboratory Results - last 24 hr 01/19/25 01/19/25 01/19/25 09:49 10:49 17:14 WBC RBC Hgb Hct MCV MCH MCHC RDW Plt Count MPV Immature Gran % (Auto) Neut % (Auto) Lymph % (Auto) [place] % (Auto) Eos % (Auto) Baso % (Auto) Lymph # (Auto) [place] # (Auto) Eos # (Auto) Baso # (Auto) Abs Immat Gran (auto) Absolute Neuts (auto) Absolute Nucleated RBC Nucleated RBC % (auto) PT INR aPTT Heparin Protocol VBG pH VBG pCO2 VBG pO2 VBG HCO3 VBG O2 Saturation VBG Base Excess Sodium Potassium Chloride Carbon Dioxide Anion Gap BUN Creatinine Estim Creat Clear Calc Estimated GFR POC Glucose 196 H 203 H Random Glucose Calcium Phosphorus Magnesium Troponin I High Sens Albumin TSH 1.74 Random Vancomycin 01/19/25 01/19/25 01/19/25 18:14 19:51 23:12 WBC 12.6 H RBC 2.97 L Hgb 9.0 L Hct 26.7 L MCV 89.9 MCH 30.3 MCHC 33.7 RDW 14.1 Plt Count 207 MPV 10.6 Immature Gran % (Auto) Neut % (Auto) Lymph % (Auto) [place] % (Auto) Eos % (Auto) Baso % (Auto) Lymph # (Auto) [place] # (Auto) Eos # (Auto) Baso # (Auto) Abs Immat Gran (auto) Absolute Neuts (auto) Absolute Nucleated RBC 0.000 Nucleated RBC % (auto) 0.0 PT 15.6 H INR 1.3 H aPTT Heparin Protocol 39.8 L VBG pH VBG pCO2 VBG pO2 VBG HCO3 VBG O2 Saturation VBG Base Excess Sodium 143 Potassium 3.6 Chloride 106 Carbon Dioxide 24 Anion Gap 17 BUN 49 H Creatinine 2.91 H Estim Creat Clear Calc 15.8 Estimated GFR 16 POC Glucose 155 H Random Glucose 217 H Calcium 8.6 Phosphorus 3.9 Magnesium 1.8 Troponin I High Sens 1192.0 H* D 1243.3 H* Albumin TSH Random Vancomycin 01/20/25 01/20/25 01/20/25 02:05 05:36 05:39 WBC 8.7 RBC 2.90 L Hgb 8.9 L Hct 26.1 L MCV 90.0 MCH 30.7 MCHC 34.1 RDW 14.1 Plt Count 215 MPV 10.0 Immature Gran % (Auto) 1.4 H Neut % (Auto) 82.6 H Lymph % (Auto) 7.5 L [place] % (Auto) 7.8 Eos % (Auto) 0.1 Baso % (Auto) 0.6 Lymph # (Auto) 0.7 L [place] # (Auto) 0.7 Eos # (Auto) 0.0 Baso # (Auto) 0.1 Abs Immat Gran (auto) 0.12 H Absolute Neuts (auto) 7.2 Absolute Nucleated RBC 0.000 Nucleated RBC % (auto) 0.0 PT 15.1 H INR 1.3 H aPTT Heparin Protocol 64.8 D VBG pH 7.54 H VBG pCO2 32 VBG pO2 87 VBG HCO3 28 H VBG O2 Saturation 96.0 VBG Base Excess 6.0 Sodium 143 Potassium 3.4 Chloride 105 Carbon Dioxide 25 Anion Gap 16 BUN 50 H Creatinine 2.94 H Estim Creat Clear Calc 15.6 Estimated GFR 15 POC Glucose Random Glucose 143 H Calcium 8.7 Phosphorus 4.5 Magnesium 1.8 Troponin I High Sens 1367.4 H* 1482.2 H* Albumin 3.1 L TSH Random Vancomycin 01/20/25 01/20/25 06:29 08:07 WBC RBC Hgb Hct MCV MCH MCHC RDW Plt Count MPV Immature Gran % (Auto) Neut % (Auto) Lymph % (Auto) [place] % (Auto) Eos % (Auto) Baso % (Auto) Lymph # (Auto) [place] # (Auto) Eos # (Auto) Baso # (Auto) Abs Immat Gran (auto) Absolute Neuts (auto) Absolute Nucleated RBC Nucleated RBC % (auto) PT INR aPTT Heparin Protocol 63.9 VBG pH VBG pCO2 VBG pO2 VBG HCO3 VBG O2 Saturation VBG Base Excess Sodium Potassium Chloride Carbon Dioxide Anion Gap BUN Creatinine Estim Creat Clear Calc Estimated GFR POC Glucose 137 H Random Glucose Calcium Phosphorus Magnesium Troponin I High Sens Albumin TSH Random Vancomycin 17.5 ECG Interpretation: EKG shows underlying sinus tachycardia at 126/Min; left ventricular hypertrophy with some repolarization changes. Nonspecific interventricular conduction defect. Assessment and Plan (1) Acute combined systolic and diastolic congestive heart failure: Status: Acute (2) Acute hypoxic respiratory failure: Status: Acute (3) NSTEMI (non-ST elevated myocardial infarction): Status: Acute Plan Labs reviewed. She has got renal dysfunction with a BUN of 50 creatinine of 2.9. We do not have a baseline in our system. Cardiac BNP is around a 1000 multiple sets. Initial level on admission was 43. Cardiac BNP 755. Chest CT reported to have pulmonary edema/multifocal pneumonia. Extensive atheromatous coronary/arterial calcification. Echocardiogram with LVEF of 29%. Moderate diastolic dysfunction. Mild mitral regurgitation [id number] tricuspid regurgitation. In a prior echocardiogram sent to me by [facility] the [facility], LVEF was 55-60% in 2023. Overall, acute onset of congestive heart failure. Uncertain etiology. By CT, clearly has underlying CAD but doubt if this is an acute plaque rupture. Elevated troponins could be from demand. At the current time, she is intubated. Keep her on IV heparin for 48 hours. She is also on a diuretic drip. Keep her on aspirin and statins. Once she is extubated, need to assess mental status and then we will decide further care. At the current time, she is not suitable for cardiac catheterization due to intubated status as well as from renal failure. We will follow up with you. Discussed with . Procedures Date of Service Date of Service: 01/20/25
[2025-01-20] MEDS: Albumin Human 25 % 50 ML 100 ML IV (10:20)
[2025-01-20] MEDS: amLODIPine Besylate 10 MG TABLET PO (10:20)
[2025-01-20] MEDS: cloNIDine HCL 0.1 MG TABLET PO ×2 (10:20→21:05)
[2025-01-20 11:39] LABS: Glucose, Whole Blood 141 mg/dL (60-115)
[2025-01-20 18:26] LABS: Glucose, Whole Blood 128 mg/dL (60-115)
[2025-01-20] MEDS: propofoL 1,000 MG/100 ML VIAL 21.6 MG IVCONT (18:31)
[2025-01-20] MEDS: Aspirin 81 MG TAB.CHEW PO (18:32)
[2025-01-20 18:40] LABS: Anion Gap 19 (12-20); Blood Urea Nitrogen 55 mg/dL (9-16); Calcium 8.9 mg/dL (8.4-10.2); Carbon Dioxide 25 mmol/L (22-29); Chloride 103 mmol/L (96-108); Creatinine Clr Calc Pharmacy 14.8; Estimated Glomerular Filt Rate 14; Glucose Random 131 mg/dL (60-115); Magnesium 1.8 mg/dL (1.6-2.6); Phosphorus 4.5 mg/dL (2.7-4.5); Potassium 3.4 mmol/L (3.3-5.1); Sodium 144 mmol/L (135-145)
[2025-01-20] MEDS: vancomycin HCL 500 MG in 0.9 % Sodium Chloride 100 ML 110 MG IV (19:50)
[2025-01-20] MEDS: Heparin Sodium,Porcine/1/2NS 25,000 UNIT/250 ML IV.SOLN 8.81 UNIT IVCONT (19:53)
[2025-01-20] MEDS: Potassium Chloride Packet 20 MEQ PACKET 40 MEQ PO (21:05)
[2025-01-20] MEDS: Atorvastatin Calcium 80 MG TABLET PO (21:05)
[2025-01-21] VITALS (42 sets, daily range): BP systolic 126–190; BP diastolic 56–80; PULSE 61–86; RESP 10–16; TEMP 34.9–37.9; O2SAT 96–98; BMI 21.4
[2025-01-21 00:26] LABS: Glucose, Whole Blood 128 mg/dL (60-115)
[2025-01-21] MEDS: propofoL 1,000 MG/100 ML VIAL 17.28 MG IVCONT ×4 (03:52→23:55)
[2025-01-21 04:43] LABS: VBG Base Excess 5.9 mmol/L; VBG HCO3 26 mmol/L (22-26); VBG pCO2 27 mmHg; VBG pO2 87 mmHg
[2025-01-21 04:57] LABS: MANUAL DIFF FLAG NO
[2025-01-21 05:00] LABS: Basophils Absolute Auto 0.1 X10*3/uL (0.0-0.2); Basophils Percent Auto 0.7 % (0-2); Eosinophils Absolute Auto 0.1 X10*3/uL (0.0-0.4); Eosinophils Percent Auto 1.1 % (0-4); Hematocrit 29.3 % (37.0-47.0); Hemoglobin 10.1 g/dl (12.0-16.0); Imm Gran Abs Auto 0.08 X10*3/uL (0.00-0.03); Lymphocytes Absolute Auto 0.6 X10*3/uL (1.2-4.9); Lymphocytes Percent Auto 7.7 % (20-40); Mean Corpuscular HGB Conc 34.5 g/dl (31.0-35.0); Mean Corpuscular Hemoglobin 30.5 pg (27.0-33.0); Mean Corpuscular Volume 88.5 fL (80.0-98.0); Mean Platelet Volume 10.3 fL (9.4-12.3); Monocytes Absolute Auto 0.9 X10*3/uL (0.1-1.2); Monocytes Percent Auto 10.9 % (2-11); Neutrophils Absolute Auto 6.5 x10*3/uL (2.0-8.3); Neutrophils Percent Auto 78.6 % (45-73); Platelet Count 270 X10*3/uL (160-400); Red Blood Count 3.31 X10*6/uL (4.20-5.50); Red Cell Distribution Width 14.1 % (11.0-16.0); White Blood Count 8.3 X10*3/uL (4.8-10.8)
[2025-01-21 05:14] LABS: Albumin Level 3.4 g/dL (3.5-5.0); Anion Gap 22 (12-20); Blood Urea Nitrogen 61 mg/dL (9-16); Calcium 8.8 mg/dL (8.4-10.2); Carbon Dioxide 23 mmol/L (22-29); Chloride 103 mmol/L (96-108); Creatinine Clr Calc Pharmacy 14.2; Estimated Glomerular Filt Rate 14; Glucose Random 154 mg/dL (60-115); Magnesium 1.9 mg/dL (1.6-2.6); Phosphorus 4.9 mg/dL (2.7-4.5); Potassium 3.9 mmol/L (3.3-5.1); Sodium 144 mmol/L (135-145)
[2025-01-21 05:16] LABS: Venous Blood Gas Refer to POC result
[2025-01-21 06:00] LABS: Glucose, Whole Blood 151 mg/dL (60-115)
[2025-01-21] MEDS: Insulin Lispro 100 UNIT/ML 3 ML VIAL SUBCUT (06:04)
[2025-01-21] MEDS: Pantoprazole Sodium 40 MG/10 ML VIAL IVPUSH (06:05)
[2025-01-21 06:59] LABS: PTT Heparin Drip 58.9 SEC (53-77.9)
[2025-01-21] MEDS: Piperacillin Sodium/Tazobactam 4.5 GM in 0.9 % Sodium Chloride 100 ML IV ×2 (08:48→20:11)
[2025-01-21] MEDS: amLODIPine Besylate 10 MG TABLET PO (08:53)
[2025-01-21] MEDS: cloNIDine HCL 0.1 MG TABLET PO ×2 (08:55→20:13)
[2025-01-21] MEDS: Aspirin 81 MG TAB.CHEW PO (08:55)
[2025-01-21] MEDS: Chlorhexidine Gluc Oral Rinse 15 ML MOUTHWASH BUCCAL ×3 (08:55→20:13)
[2025-01-21] MEDS: Labetalol HCL 100 MG TABLET PO (08:56)
--- NOTE | 2025-01-21 09:41 | P.PNCC_ITS ---
Subjective Subjective Date of Service: 01/21/25 Interval History: no significant overnight events Critical Care Time (minutes): 60 Physical Exam 2 Vital Signs: Vital Signs: Last Vital Signs Temp 98.4 F 01/21/25 09:00 Pulse 72 01/21/25 09:00 Resp 11 L 01/21/25 09:00 BP 179/72 H 01/21/25 09:00 Pulse Ox 97 01/21/25 09:00 O2 Del Method Mechanical Ventil ation 01/21/25 09:00 FiO2 40 01/21/25 09:00 BMI result Body Mass Index 21.4 Const: General: cooperative, healthy appearing, comfortable, no acute distress and well developed HEENT: Head: Yes normal to inspection, Yes normocephalic and Yes atraumatic Eyes: General: appearance normal, both eyes and all related structures Neck: Neck: Yes normal visual inspection, Yes full ROM, Yes no meningeal signs, Yes trachea midline and Yes supple Chest: Chest palpation & inspection: normal inspection of the chest Resp: Other: no appreciable overt rales, rhonchi, wheezing Effort & Inspection: normal respiratory effort Cardio: Rate: regular rate Rhythm: regular rhythm GI: Inspection: Yes normal to inspection, No Abdominal wall edema and No distended Palpation (GI): Soft to palpation, not firm, nontender, no guarding and not rigid Skin: General skin exam: no rashes or lesions noted Neuro: General: tone normal and no meningeal signs Extrem: Other: appreciable 1+ pitting edema to bilateral shins General: Yes normal to inspection, Yes full ROM and Yes capillary refill normal Psych: Other: unable to assess Appearance: grossly normal Objective Data Labs 01/21/25 04:36 01/21/25 04:36 Labs: Laboratory Results - last 24 hr 01/20/25 01/20/25 01/20/25 09:46 11:35 18:03 WBC RBC Hgb Hct MCV MCH MCHC RDW Plt Count MPV Immature Gran % (Auto) Neut % (Auto) Lymph % (Auto) [place] % (Auto) Eos % (Auto) Baso % (Auto) Lymph # (Auto) [place] # (Auto) Eos # (Auto) Baso # (Auto) Abs Immat Gran (auto) Absolute Neuts (auto) Absolute Nucleated RBC Nucleated RBC % (auto) aPTT Heparin Protocol VBG pH VBG pCO2 VBG pO2 VBG HCO3 VBG O2 Saturation VBG Base Excess Sodium 144 Potassium 3.4 Chloride 103 Carbon Dioxide 25 Anion Gap 19 BUN 55 H Creatinine 3.10 H Estim Creat Clear Calc 14.8 Estimated GFR 14 POC Glucose 141 H Random Glucose 131 H Calcium 8.9 Phosphorus 4.5 Magnesium 1.8 Troponin I High Sens 1213.0 H* Albumin 01/20/25 01/21/25 01/21/25 18:23 00:23 04:36 WBC 8.3 RBC 3.31 L Hgb 10.1 L Hct 29.3 L MCV 88.5 MCH 30.5 MCHC 34.5 RDW 14.1 Plt Count 270 D MPV 10.3 Immature Gran % (Auto) 1.0 H Neut % (Auto) 78.6 H Lymph % (Auto) 7.7 L [place] % (Auto) 10.9 Eos % (Auto) 1.1 Baso % (Auto) 0.7 Lymph # (Auto) 0.6 L [place] # (Auto) 0.9 Eos # (Auto) 0.1 Baso # (Auto) 0.1 Abs Immat Gran (auto) 0.08 H Absolute Neuts (auto) 6.5 Absolute Nucleated RBC 0.000 Nucleated RBC % (auto) 0.0 aPTT Heparin Protocol VBG pH VBG pCO2 VBG pO2 VBG HCO3 VBG O2 Saturation VBG Base Excess Sodium 144 Potassium 3.9 Chloride 103 Carbon Dioxide 23 Anion Gap 22 H BUN 61 H Creatinine 3.24 H Estim Creat Clear Calc 14.2 Estimated GFR 14 POC Glucose 128 H 128 H Random Glucose 154 H Calcium 8.8 Phosphorus 4.9 H Magnesium 1.9 Troponin I High Sens Albumin 3.4 L 01/21/25 01/21/25 01/21/25 04:38 05:56 06:18 WBC RBC Hgb Hct MCV MCH MCHC RDW Plt Count MPV Immature Gran % (Auto) Neut % (Auto) Lymph % (Auto) [place] % (Auto) Eos % (Auto) Baso % (Auto) Lymph # (Auto) [place] # (Auto) Eos # (Auto) Baso # (Auto) Abs Immat Gran (auto) Absolute Neuts (auto) Absolute Nucleated RBC Nucleated RBC % (auto) aPTT Heparin Protocol 58.9 VBG pH 7.60 H* VBG pCO2 27 VBG pO2 87 VBG HCO3 26 VBG O2 Saturation 96.0 VBG Base Excess 5.9 Sodium Potassium Chloride Carbon Dioxide Anion Gap BUN Creatinine Estim Creat Clear Calc Estimated GFR POC Glucose 151 H Random Glucose Calcium Phosphorus Magnesium Troponin I High Sens Albumin Microbiology Microbiology Results: Microbiology 01/19/25 07:38 Blood - Venous Blood Culture - Preliminary No growth after 48 hours. 01/19/25 07:14 Blood - Venous Blood Culture - Preliminary No growth after 48 hours. Progress Note: A&P Assessment and plan (1) Acute hypoxic respiratory failure: Status: Acute (2) Pulmonary edema: Status: Acute (3) Acute combined systolic and diastolic congestive heart failure: Status: Acute Plan Patient is a 79 Y F w/ hypertension, hyperlipidemia, diabetes mellitus, c/b CAD, prior CVA c/b R hemiparesis, hypothyroidism, and LUANA presenting from nursing facility to emergency department on 01/19 w/ obtundation, found to be hypoxic; in emergency department, patient intubated, found to have CT C c/f pulmonary edema and/or pneumonia N: intubated, sedated w/ propofol gtt, wean as tolerated CV: troponinemia, likely d/t demand; echo 01/20 demonstrating LVEF 30% and diastolic dysfunction; diuresis as tolerated, BP control, appreciate cardiology recommendations R: acute hypoxic respiratory failure, c/f pulmonary edema and/or pneumonia; intubated 01/19, wean as tolerated GI: NPO : acute on chronic renal insufficiency; diuresis as tolerated; to closely monitor renal indices, electrolytes H: no acute issues; chemical DVT prophylaxis w/ heparin SQ ID: c/f pneumonia, empiric vancomycin/zosyn E: diabetes mellitus, insulin sliding scale P: no acute issues Quality Stroke Does the patient have a stroke diagnosis?: No VTE Prior VTE?: No VTE Risk Level:: Medical - moderate - high VTE Device Contraindication: N/A - Device Ordered VTE Drug Contraindication: N/A - Med Ordered
[2025-01-21] MEDS: Albumin Human 25 % 50 ML 100 ML IV (10:47)
[2025-01-21 12:10] LABS: Glucose, Whole Blood 142 mg/dL (60-115)
[2025-01-21 17:34] LABS: Glucose, Whole Blood 127 mg/dL (60-115)
[2025-01-21] MEDS: Bumetanide 25 MG in Container,Empty 0 ML 4 MG IVCONT (18:01)
--- NOTE | 2025-01-21 18:26 | PC.NURSE ---
assumed care at 0700 on 01/21/25. patient stable on vent. known to be hypertensive, MD aware (see vitals), patient in no acute distress see shift assessment. Per MD telephone order, titrate sedation and have respiratory adjust vent settings for SAT and PSV trial respectively. see shift assessment, MAR and vent assessment for related information on settings and sedation. patient tolerates PSV with some discomfort, frequently gagging on ETT. otherwise no acute incidents today.
[2025-01-21 18:45] LABS: Vancomycin Random 19.6 mcg/mL (15-20)
[2025-01-21 18:52] LABS: Anion Gap 22 (12-20); Blood Urea Nitrogen 64 mg/dL (9-16); Calcium 9.1 mg/dL (8.4-10.2); Carbon Dioxide 23 mmol/L (22-29); Chloride 103 mmol/L (96-108); Creatinine Clr Calc Pharmacy 13.3; Estimated Glomerular Filt Rate 13; Glucose Random 126 mg/dL (60-115); Phosphorus 5.9 mg/dL (2.7-4.5); Sodium 144 mmol/L (135-145)
[2025-01-21] MEDS: Atorvastatin Calcium 80 MG TABLET PO (20:13)
[2025-01-21 23:56] LABS: Glucose, Whole Blood 149 mg/dL (60-115)
[2025-01-22] VITALS (34 sets, daily range): BP systolic 147–190; BP diastolic 61–82; PULSE 65–110; RESP 13–22; TEMP 34.5–37.5; O2SAT 91–97; BMI 21.3
[2025-01-22] MEDS: propofoL 1,000 MG/100 ML VIAL 17.28 MG IVCONT (04:20)
[2025-01-22 05:56] LABS: VBG Base Excess 4.2 mmol/L; VBG HCO3 28 mmol/L (22-26); VBG pCO2 38 mmHg; VBG pH 7.46 (7.32-7.43); VBG pO2 69 mmHg
[2025-01-22 05:58] LABS: MANUAL DIFF FLAG NO
[2025-01-22 05:59] LABS: Basophils Percent Auto 0.5 % (0-2); Eosinophils Absolute Auto 0.2 X10*3/uL (0.0-0.4); Eosinophils Percent Auto 1.9 % (0-4); Hematocrit 29.8 % (37.0-47.0); Hemoglobin 9.9 g/dl (12.0-16.0); Imm Gran Abs Auto 0.05 X10*3/uL (0.00-0.03); Imm Gran Pct Auto 0.6 % (0.0-0.4); Lymphocytes Absolute Auto 0.5 X10*3/uL (1.2-4.9); Lymphocytes Percent Auto 6.5 % (20-40); Mean Corpuscular HGB Conc 33.2 g/dl (31.0-35.0); Mean Corpuscular Hemoglobin 29.7 pg (27.0-33.0); Mean Corpuscular Volume 89.5 fL (80.0-98.0); Mean Platelet Volume 9.5 fL (9.4-12.3); Monocytes Absolute Auto 0.8 X10*3/uL (0.1-1.2); Monocytes Percent Auto 9.7 % (2-11); Neutrophils Absolute Auto 6.6 x10*3/uL (2.0-8.3); Neutrophils Percent Auto 80.8 % (45-73); Platelet Count 268 X10*3/uL (160-400); Red Blood Count 3.33 X10*6/uL (4.20-5.50); White Blood Count 8.2 X10*3/uL (4.8-10.8)
[2025-01-22] MEDS: Pantoprazole Sodium 40 MG/10 ML VIAL IVPUSH (06:01)
[2025-01-22] MEDS: Insulin Lispro 100 UNIT/ML 3 ML VIAL SUBCUT ×3 (06:01→18:09)
[2025-01-22 06:03] LABS: Glucose, Whole Blood 163 mg/dL (60-115)
[2025-01-22 06:09] LABS: Albumin Level 3.8 g/dL (3.5-5.0)
[2025-01-22 06:17] LABS: Anion Gap 22 (12-20); Blood Urea Nitrogen 71 mg/dL (9-16); Calcium 8.8 mg/dL (8.4-10.2); Carbon Dioxide 24 mmol/L (22-29); Chloride 102 mmol/L (96-108); Creatinine Clr Calc Pharmacy 11.8; Estimated Glomerular Filt Rate 11; Glucose Random 168 mg/dL (60-115); Magnesium 2.1 mg/dL (1.6-2.6); Phosphorus 6.6 mg/dL (2.7-4.5); Sodium 144 mmol/L (135-145)
[2025-01-22 06:42] LABS: Vancomycin Random 17.9 mcg/mL (15-20)
[2025-01-22] MEDS: vancomycin HCL 500 MG in 0.9 % Sodium Chloride 100 ML 110 MG IV (07:34)
[2025-01-22] MEDS: Piperacillin Sodium/Tazobactam 4.5 GM in 0.9 % Sodium Chloride 100 ML IV (07:34)
[2025-01-22] MEDS: Chlorhexidine Gluc Oral Rinse 15 ML MOUTHWASH BUCCAL (08:06)
[2025-01-22] MEDS: amLODIPine Besylate 10 MG TABLET PO (08:07)
[2025-01-22] MEDS: Aspirin 81 MG TAB.CHEW PO (08:07)
[2025-01-22] MEDS: cloNIDine HCL 0.1 MG TABLET PO (08:07)
[2025-01-22] MEDS: Labetalol HCL 100 MG TABLET PO (08:07)
[2025-01-22 08:31] LABS: Venous Blood Gas Refer to POC result
[2025-01-22 11:29] LABS: Glucose, Whole Blood 161 mg/dL (60-115)
[2025-01-22] MEDS: Lactulose 20 GM/30 ML SOLUTION 30 GM PO (11:29)
--- NOTE | 2025-01-22 11:31 | MHC.CLN ---
F/U PT REMAINS INTUBATED AND SEDATED DISCUSSED AT ROUNDS WITH MD PLAN FOR POSSIBLE EXTUBATION TODAY PT IS DAY 4 NPO IF TF NEEDED; RECOMMEND GLUCERNA AT MAX GOAL RATE 65ML/HR WITH 240ML FREE WATER FLUSHES Q 8 HRS TO PROVIDE 1560KCALS (1788KCALS WITH SEDATION), 65G PROTEIN (.9G/KG), 2050ML TOTAL WATER FROM FORMULA AND FLUSHES (28ML/KG) MONITOR TOLERANCE AND LYTES FOLLOWING FOR DIET ADVANCEMENT
--- NOTE | 2025-01-22 12:28 | PC.RT ---
Pt control extubated by RT per MD order. Pt was trialed on PSV this am and steph well, was titrated down to 5/5 21%. Pt had a positive air leak pre extubation and negative for stridor post. Pt steph well on RA at this time. Will continue to monitor.
--- NOTE | 2025-01-22 13:23 | P.PNCC_ITS ---
Subjective Subjective Date of Service: 01/22/25 Interval History: 79-year-old lady with underlying history of hypertension, hyperlipidemia, diabetes mellitus, CAD, CVA with right-sided hemiparesis, hypothyroidism, LUANA admitted on 01/19/2025 with acute hypoxic respiratory failure and alteration of mental status requiring intubation and ventilatory support. Patient treated for pulmonary edema with diuresis with significant improvement, and also empiric antibiotics for overlying pneumonia. Extubated uneventfully on 01/22/2025. No events overnight. Critical Care Time (minutes): 60 Physical Exam 2 Vital Signs: Vital Signs: Last Vital Signs Temp 99.3 F 01/22/25 12:00 Pulse 72 01/22/25 12:00 Resp 20 01/22/25 12:00 BP 167/65 H 01/22/25 12:00 Pulse Ox 91 L 01/22/25 12:00 O2 Del Method Mechanical Ventil ation 01/22/25 12:00 O2 Flow Rate 35 01/22/25 10:00 FiO2 35 01/22/25 12:00 BMI result Body Mass Index 21.3 Const: General: no acute distress, alert and awake Eyes: Sclerae: sclerae normal EOM: EOMs intact bilaterally Neck: Neck: Yes no lymphadenopathy, Yes trachea midline and Yes supple Resp: Effort & Inspection: normal respiratory effort and no respiratory distress Auscultation: clear to auscultation bilaterally Cardio: Rate: regular rate Rhythm: regular rhythm Heart sounds: no gallops, no murmurs and no rubs GI: Palpation (GI): Soft to palpation and Other GI palpation findings present ( Nontender) Auscultation: normal bowel sounds Extrem: General: No clubbing, No cyanosis and Yes edema (Trace bilateral) Objective Data Labs 01/22/25 05:50 01/22/25 05:50 Labs: Laboratory Results - last 24 hr 01/21/25 01/21/25 01/21/25 17:29 17:59 23:45 WBC RBC Hgb Hct MCV MCH MCHC RDW Plt Count MPV Immature Gran % (Auto) Neut % (Auto) Lymph % (Auto) [place] % (Auto) Eos % (Auto) Baso % (Auto) Lymph # (Auto) [place] # (Auto) Eos # (Auto) Baso # (Auto) Abs Immat Gran (auto) Absolute Neuts (auto) Absolute Nucleated RBC Nucleated RBC % (auto) VBG pH VBG pCO2 VBG pO2 VBG HCO3 VBG O2 Saturation VBG Base Excess Sodium 144 Potassium 4.0 Chloride 103 Carbon Dioxide 23 Anion Gap 22 H BUN 64 H Creatinine 3.47 H Estim Creat Clear Calc 13.3 Estimated GFR 13 POC Glucose 127 H 149 H Random Glucose 126 H Calcium 9.1 Phosphorus 5.9 H Magnesium 2.0 Albumin Random Vancomycin 19.6 01/22/25 01/22/25 01/22/25 05:32 05:50 05:52 WBC 8.2 RBC 3.33 L Hgb 9.9 L Hct 29.8 L MCV 89.5 MCH 29.7 MCHC 33.2 RDW 14.0 Plt Count 268 MPV 9.5 Immature Gran % (Auto) 0.6 H Neut % (Auto) 80.8 H Lymph % (Auto) 6.5 L [place] % (Auto) 9.7 Eos % (Auto) 1.9 Baso % (Auto) 0.5 Lymph # (Auto) 0.5 L [place] # (Auto) 0.8 Eos # (Auto) 0.2 Baso # (Auto) 0.0 Abs Immat Gran (auto) 0.05 H Absolute Neuts (auto) 6.6 Absolute Nucleated RBC 0.000 Nucleated RBC % (auto) 0.0 VBG pH 7.46 H VBG pCO2 38 VBG pO2 69 VBG HCO3 28 H VBG O2 Saturation 89.0 VBG Base Excess 4.2 Sodium 144 Potassium 4.0 Chloride 102 Carbon Dioxide 24 Anion Gap 22 H BUN 71 H Creatinine 3.85 H Estim Creat Clear Calc 11.8 Estimated GFR 11 POC Glucose 163 H Random Glucose 168 H Calcium 8.8 Phosphorus 6.6 H Magnesium 2.1 Albumin 3.8 Random Vancomycin 17.9 01/22/25 11:21 WBC RBC Hgb Hct MCV MCH MCHC RDW Plt Count MPV Immature Gran % (Auto) Neut % (Auto) Lymph % (Auto) [place] % (Auto) Eos % (Auto) Baso % (Auto) Lymph # (Auto) [place] # (Auto) Eos # (Auto) Baso # (Auto) Abs Immat Gran (auto) Absolute Neuts (auto) Absolute Nucleated RBC Nucleated RBC % (auto) VBG pH VBG pCO2 VBG pO2 VBG HCO3 VBG O2 Saturation VBG Base Excess Sodium Potassium Chloride Carbon Dioxide Anion Gap BUN Creatinine Estim Creat Clear Calc Estimated GFR POC Glucose 161 H Random Glucose Calcium Phosphorus Magnesium Albumin Random Vancomycin Microbiology Microbiology Results: Microbiology 01/19/25 07:38 Blood - Venous Blood Culture - Preliminary No growth after 48 hours. 01/19/25 07:14 Blood - Venous Blood Culture - Preliminary No growth after 48 hours. Progress Note: A&P Assessment and plan (1) CAD (coronary artery disease): Status: Acute (2) Acute combined systolic and diastolic congestive heart failure: Status: Acute (3) Diabetes: Status: Acute (4) Hypothyroid: Status: Acute (5) CKD (chronic kidney disease): Status: Acute (6) Acute hypoxic respiratory failure: Status: Acute (7) Pulmonary edema: Status: Acute Plan Assessment: 79-year-old lady admitted with acute hypoxic respiratory failure requiring ventilatory support, likely secondary to acute on chronic combined systolic and diastolic congestive heart failure, improved with diuresis, extubated on 01/22/2025. Plan: Neuro: No acute issues. Cardiac: Acute on chronic combined systolic and diastolic congestive heart failure improved with diuresis. Cardiology service care appreciated. Pulmonary: Acute hypoxic respiratory failure secondary to exacerbation of underlying congestive heart failure initially requiring ventilatory support, extubated on 01/22/2025. Continue to titrate off supplemental oxygen as tolerated. Renal: Acute renal failure on background of chronic renal disease, secondary to exacerbation of underlying congestive heart failure, non oliguric. Continue to monitor renal indices and urine output. Endo: No acute issues. Underlying diabetes mellitus on subcutaneous insulin. GI: No acute issues. ID: No acute issues Heme/Onc: Cultures negative to date, leukocytosis resolved, will monitor off antibiotics. Psych: No acute issues. Miscellaneous: No acute issues. Prophylaxis: Heparin Diet: Pending swallow evaluation Critical care time spent: 60 minutes Quality Stroke Does the patient have a stroke diagnosis?: No VTE Prior VTE?: No VTE Risk Level:: Medical - moderate - high VTE Device Contraindication: N/A - Device Ordered VTE Drug Contraindication: N/A - Med Ordered
[2025-01-22] MEDS: Heparin Sodium,Porcine 5,000 UNIT/ML VIAL 5000 UNIT SUBCUT ×2 (14:11→21:31)
--- NOTE | 2025-01-22 14:14 | MHC.CM.PN ---
Pt remains in ICU: to be extubated today once weaned from sedation: + bacteremia findings: clinical updates remitted to acute and STR choices. Pt will need PT/OT evals once medically stable. CM to follow
--- NOTE | 2025-01-22 15:46 | PC.RT ---
Per office note on 01/13/2023, pt home CPAP settings are [id number]. Nocturnal order placed per ICU MD.
--- NOTE | 2025-01-22 17:12 | PC.NURSE ---
Assumed care at 0700- Pt. intubated and sedated. SV and PSV trial performed- see EMAR and vent assessment. Pt. successfully extubated at 1220 by RT. Pt. extremely drowsy, minimal speech, opens eyes to verbal stimuli, follows commands, nods Y/N to questions. MD notified. Pt. with loose, moist, non-productive cough- intermittent oral suction performed- O2 sats sustaining >90% on RA, RR 14-20, respirations even and unlabored. SBPs sustaining 160s-180s- MD notified, no new orders at this time. Pt. remains SR on tele HR 70s-80s, briefly converted to afib HR 90s-130s- MD notified, pt. converted back to SR HR 70s-80s. Nunez remains in place draining yellow urine. Pt. incontinent with large amount liquid brown stool. Q2 oral care and repositioning performed, hovermat system in place. Plan of care ongoing.
[2025-01-22 18:08] LABS: Glucose, Whole Blood 152 mg/dL (60-115)
[2025-01-22] MEDS: hydrALAZINE HCl 20 MG/ML VIAL 10 MG IVPUSH (18:52)
[2025-01-22 23:57] LABS: Glucose, Whole Blood 150 mg/dL (60-115)
[2025-01-23] VITALS (40 sets, daily range): BP systolic 125–213; BP diastolic 51–92; PULSE 94–128; RESP 15–28; TEMP 36.8–37.7; O2SAT 93–95; BMI 20.9
[2025-01-23] MEDS: hydrALAZINE HCl 20 MG/ML VIAL 10 MG IVPUSH ×3 (02:18→10:18)
[2025-01-23] MEDS: Labetalol HCL 100 MG/20 ML VIAL IVPUSH (02:37)
[2025-01-23] MEDS: Digoxin 0.5 MG/2 ML AMPUL 0.25 MG IVPUSH ×2 (03:37→09:49)
[2025-01-23] MEDS: Heparin Sodium,Porcine 5,000 UNIT/ML VIAL 5000 UNIT SUBCUT ×3 (05:30→20:32)
[2025-01-23] MEDS: Insulin Lispro 100 UNIT/ML 3 ML VIAL SUBCUT ×3 (05:32→17:46)
[2025-01-23 05:34] LABS: VBG Base Excess -0.6 mmol/L; VBG HCO3 23 mmol/L (22-26); VBG pCO2 34 mmHg; VBG pH 7.43 (7.32-7.43); VBG pO2 73 mmHg
[2025-01-23 05:35] LABS: Glucose, Whole Blood 185 mg/dL (60-115)
[2025-01-23 05:38] LABS: Venous Blood Gas Refer to POC result
[2025-01-23 05:50] LABS: MANUAL DIFF FLAG NO
[2025-01-23 05:52] LABS: Basophils Absolute Auto 0.1 X10*3/uL (0.0-0.2); Basophils Percent Auto 0.6 % (0-2); Eosinophils Absolute Auto 0.1 X10*3/uL (0.0-0.4); Eosinophils Percent Auto 0.6 % (0-4); Hematocrit 32.9 % (37.0-47.0); Hemoglobin 10.5 g/dl (12.0-16.0); Imm Gran Abs Auto 0.09 X10*3/uL (0.00-0.03); Imm Gran Pct Auto 0.9 % (0.0-0.4); Lymphocytes Absolute Auto 0.4 X10*3/uL (1.2-4.9); Lymphocytes Percent Auto 3.7 % (20-40); Mean Corpuscular HGB Conc 31.9 g/dl (31.0-35.0); Mean Corpuscular Hemoglobin 29.1 pg (27.0-33.0); Mean Corpuscular Volume 91.1 fL (80.0-98.0); Mean Platelet Volume 10.4 fL (9.4-12.3); Monocytes Absolute Auto 0.9 X10*3/uL (0.1-1.2); Monocytes Percent Auto 8.2 % (2-11); Platelet Count 274 X10*3/uL (160-400); Red Blood Count 3.61 X10*6/uL (4.20-5.50); White Blood Count 10.5 X10*3/uL (4.8-10.8)
[2025-01-23 06:10] LABS: Anion Gap 26 (12-20); Blood Urea Nitrogen 90 mg/dL (9-16); Carbon Dioxide 20 mmol/L (22-29); Chloride 106 mmol/L (96-108); Creatinine Clr Calc Pharmacy 10.6; Estimated Glomerular Filt Rate 10; Glucose Random 193 mg/dL (60-115); Magnesium 2.4 mg/dL (1.6-2.6); Phosphorus 7.4 mg/dL (2.7-4.5); Potassium 3.9 mmol/L (3.3-5.1); Sodium 148 mmol/L (135-145)
--- NOTE | 2025-01-23 06:37 | PC.NURSE ---
Upon initial assessment at 1999: Patient briefly arousable to name, but very somnolent. Able to nod or shake head for yes/no and follow commands. Patient with very minimal speech, voice hoarse and soft. Weak non productive cough, very weak gag. Able to move extremities but weakly. SR on tele, HR 70s-90s. Patient's respirations shallow and lung sounds diminished. Saturating well on RA, O2 goal >90%. Abdomen soft and active bs x4. Patient incontinent of large liquid BM. Nunez in place draining clear yellow urine. Skin warm dry and intact, with blanchable redness to buttocks/coccyx. Barrier cream and pink foam applied. Patient repositioned Q2HR, and HOB >30 due to risk of aspiration. Bed locked in lowest possible position, bed alarm on, call barbosa within reach.? Approx 0200: Patient having bursts of Afib up to the 130s on tele, quickly converts back to SR. ENRRIQUE Parmar notified, 5mg Labetolol?IVP?ordered, see MAR.? Approx 0330: Persistent Afib 110s-150s. ENRRIQUE Parmar aware. Digoxin 0.25mg IVP ordered, see MAR.? Now: Patient resting comfortably, RR even and unlabored. ENRRIQUE Parmar notified of all?critical lab values/changes in patient status. Bed locked in lowest position, bed alarm on, call barbosa within reach.
--- NOTE | 2025-01-23 08:11 | P.CDIM_ITS ---
PROVIDER RESPONSE TEXT: To clarify, the appropriate diagnosis supported by the clinical indicators: Acute renal failure on Chronic Kidney Disease (CKD): CKD 4 QUERY TEXT: PHYSICIAN'S DOCUMENTATION REQUEST Date of Query: 01/23/2025 06:51 AM EST Patient Name: Radha Wright Admit Date: 01/19/2025 Dear Taco Cobb MD, A review of the medical record indicates additional documentation may be needed. Please review below and update the documentation accordingly. Clinical Indicators: ICU progress note dated 01/22 - Acute renal failure on background of chronic renal disease, secondary to exacerbation of underlying congestive heart failure, non oliguric. Continue to monitor renal indices and urine output. PMH: CKD CR: 3.85 GFR : 11 BUN: 22 Please clarify which of the following accurately represents the stage of the noted CKD: Acute renal failure on Chronic Kidney Disease (CKD) stage 1, 2, 3a, 3b, 4 Other specified Other (explain) Clinically unable to determine (explain) Thank you, Claire Vo, CCS, CDIS Use of terms such as suspected, likely, concern for, or probable (associated with a specific diagnosi s that is being evaluated, monitored, or treated as if it exists) are acceptable and can be coded in the inpatient se tting, when documented at the time of discharge. Please use your independent medical judgment in providing your response. THIS QUERY IS PART OF THE PERMANENT MEDICAL RECORD
--- NOTE | 2025-01-23 08:56 | PM.EVENT ---
Event Note Date of Service: 01/23/25 Event Note: D/w . No active cardiac concerns for me to address and he managing the issues. Time Spent With Patient Time: Total time managing care of this patient today ____ minutes.
--- NOTE | 2025-01-23 09:24 | P.PNCC_ITS ---
Subjective Subjective Date of Service: 01/23/25 Interval History: 79-year-old lady with underlying history of hypertension, hyperlipidemia, diabetes mellitus, CAD, CVA with right-sided hemiparesis, hypothyroidism, LUANA admitted on 01/19/2025 with acute hypoxic respiratory failure and alteration of mental status requiring intubation and ventilatory support. Patient treated for pulmonary edema with diuresis with significant improvement, and also empiric antibiotics for overlying pneumonia. Extubated uneventfully on 01/22/2025. No events overnight. Renal function continues to deteriorate with worsening BUN and creatinine and uremic encephalopathy. Critical Care Time (minutes): 45 Physical Exam 2 Vital Signs: Vital Signs: Last Vital Signs Temp 99.3 F 01/23/25 09:00 Pulse 103 H 01/23/25 09:00 Resp 21 H 01/23/25 09:00 BP 152/92 H 01/23/25 09:00 Pulse Ox 94 01/23/25 09:00 O2 Del Method Room Air 01/23/25 09:00 O2 Flow Rate 35 01/22/25 10:00 FiO2 35 01/22/25 12:00 BMI result Body Mass Index 20.9 Const: General: no acute distress and lethargic (Arousable) O rientation/consciousness: lethargic (Arousable) and Other orientation findings ( oriented) HEENT: Head: Yes atraumatic Eyes: Sclerae: sclerae normal EOM: EOMs intact bilaterally Neck: Neck: Yes supple Lymphatic: no lymphadenopathy noted Resp: Effort & Inspection: normal respiratory effort and no use of accessory muscles Auscultation: clear to auscultation bilaterally Cardio: Rate: tachycardic Rhythm: abnormal rhythm irregularly irregular Heart sounds: no gallops, no murmurs and no rubs Skin: General skin exam: other ( warm) Extrem: General: No clubbing, No cyanosis and Yes edema (Trace bilateral) Objective Data Labs 01/23/25 05:20 01/23/25 05:20 Labs: Laboratory Results - last 24 hr 01/22/25 01/22/25 01/22/25 11:21 18:04 23:49 WBC RBC Hgb Hct MCV MCH MCHC RDW Plt Count MPV Immature Gran % (Auto) Neut % (Auto) Lymph % (Auto) [place] % (Auto) Eos % (Auto) Baso % (Auto) Lymph # (Auto) [place] # (Auto) Eos # (Auto) Baso # (Auto) Abs Immat Gran (auto) Absolute Neuts (auto) Absolute Nucleated RBC Nucleated RBC % (auto) VBG pH VBG pCO2 VBG pO2 VBG HCO3 VBG O2 Saturation VBG Base Excess Sodium Potassium Chloride Carbon Dioxide Anion Gap BUN Creatinine Estim Creat Clear Calc Estimated GFR POC Glucose 161 H 152 H 150 H Random Glucose Calcium Phosphorus Magnesium Albumin 01/23/25 01/23/25 01/23/25 05:20 05:29 05:30 WBC 10.5 RBC 3.61 L Hgb 10.5 L Hct 32.9 L MCV 91.1 MCH 29.1 MCHC 31.9 RDW 14.0 Plt Count 274 MPV 10.4 Immature Gran % (Auto) 0.9 H Neut % (Auto) 86.0 H Lymph % (Auto) 3.7 L [place] % (Auto) 8.2 Eos % (Auto) 0.6 Baso % (Auto) 0.6 Lymph # (Auto) 0.4 L [place] # (Auto) 0.9 Eos # (Auto) 0.1 Baso # (Auto) 0.1 Abs Immat Gran (auto) 0.09 H Absolute Neuts (auto) 9.0 H Absolute Nucleated RBC 0.000 Nucleated RBC % (auto) 0.0 VBG pH 7.43 VBG pCO2 34 VBG pO2 73 VBG HCO3 23 VBG O2 Saturation 90.0 VBG Base Excess -0.6 Sodium 148 H Potassium 3.9 Chloride 106 Carbon Dioxide 20 L Anion Gap 26 H BUN 90 H Creatinine 4.22 H* Estim Creat Clear Calc 10.6 Estimated GFR 10 POC Glucose 185 H Random Glucose 193 H Calcium 9.0 Phosphorus 7.4 H Magnesium 2.4 Albumin 4.0 Microbiology Microbiology Results: Microbiology 01/19/25 07:38 Blood - Venous Blood Culture - Preliminary No growth after 48 hours. 01/19/25 07:14 Blood - Venous Blood Culture - Preliminary No growth after 48 hours. Progress Note: A&P Assessment and plan (1) Metabolic encephalopathy: Status: Acute (2) Dementia: Status: Acute (3) Acute combined systolic and diastolic congestive heart failure: Status: Acute (4) Acute kidney injury superimposed on CKD: Status: Acute (5) Diabetes: Status: Acute (6) Hypothyroid: Status: Acute (7) CAD (coronary artery disease): Status: Acute Plan Assessment: 79-year-old lady admitted with acute hypoxic respiratory failure requiring ventilatory support, likely secondary to acute on chronic combined systolic and diastolic congestive heart failure, improved with diuresis, extubated on 01/22/2025. Plan: Neuro: Lethargy likely related to underlying metabolic encephalopathy, expect to improve with resolution of uremia. Cardiac: Acute on chronic combined systolic and diastolic congestive heart failure improved with diuresis. Cardiology service care appreciated. Pulmonary: Acute hypoxic respiratory failure secondary to exacerbation of underlying congestive heart failure initially requiring ventilatory support, extubated on 01/22/2025. Continue to titrate off supplemental oxygen as tolerated. Renal: Acute renal failure on background of chronic renal disease, secondary to exacerbation of underlying congestive heart failure, worsening. Non oliguric. Now with significant uremia, may require dialysis. Nephrology evaluation requested. Continue to monitor renal indices and urine output. Endo: No acute issues. Underlying diabetes mellitus on subcutaneous insulin. GI: No acute issues. ID: No acute issues Heme/Onc: Cultures negative to date, leukocytosis resolved, will monitor off antibiotics. Psych: No acute issues. Miscellaneous: No acute issues. Prophylaxis: Heparin Diet: Pending swallow evaluation Critical care time spent: 45 minutes Quality Stroke Does the patient have a stroke diagnosis?: No VTE Prior VTE?: No VTE Risk Level:: Medical - moderate - high VTE Device Contraindication: N/A - Device Ordered VTE Drug Contraindication: N/A - Med Ordered
[2025-01-23] MEDS: Sodium Bicarbonate 8.4% 150 MEQ in Dextrose 5 % 850 ML 50 MEQ IV (09:50)
--- NOTE | 2025-01-23 10:23 | MHC.CLN ---
F/U PT EXTUBATED YESTERDAY DISCUSSED AT ROUNDS WITH MD-POSSIBLE HD TODAY PT IS DAY 5 NPO WHEN DIET TO ADVANCE, RECOMMEND 1800DM 2GM NA LOW PHOS DIET IN ADDITION TO ANY STREET LIGHT LAMP CLE[employer]ER RECOMMENDATIONS (IF NEEDED) FOLLOWING FOR DIET ADVANCEMENT
[2025-01-23] MEDS: cloNIDine 0.3 MG PATCH.TDWK TRANSDERMA (10:25)
[2025-01-23] MEDS: niCARdipine HCL 25 MG in 0.9 % Sodium Chloride 240 ML 50 MG IVCONT (10:37)
[2025-01-23 11:24] LABS: Glucose, Whole Blood 194 mg/dL (60-115)
--- NOTE | 2025-01-23 12:22 | PM.CNNEP ---
History of Present Illness Reason for Consult Consult date: 01/23/25 Reason for consult: KAI Chief Complaint Chief complaint: respiratory Failure History of Present Illness Narrative: 79 Y F w/ hypertension, hyperlipidemia, diabetes mellitus, c/b CAD, prior CVA c/b R hemiparesis, hypothyroidism, and LUANA presenting from nursing facility to emergency department on 01/19 w/ obtundation, found to be hypoxic; in emergency department, patient intubated, found to have CT C c/f pulmonary edema and/or pneumonia She has been diuresed since admission. At the time of admission serum creatinine was 2.61 mg/dL. There has been a gradual increase in the serum creatinine over the last 4 days. As of today creatinine is 4.22. She has been nonoliguric. Consultation has been requested for management of KAI. Review of Systems Review of Systems Yes Unobtainable due to mental condition [facility] Past Medical History Medical History (Updated 01/23/25 @ 09:26 by Taco Cobb MD) Dementia Right hemiparesis Cerebrovascular accident Toe amputee Mild cognitive impairment Tremors of nervous system Obstructive sleep apnea C. difficile colitis Septic shock Arthritis Hyperlipidemia CKD (chronic kidney disease) Hypothyroid HTN (hypertension) CAD (coronary artery disease) Diabetes Amputation of toe H/O nephrolithotomy with removal of calculi Family History Family History Mother FH: lung cancer Father No problems noted. Family/Other Heart disease Family/Other Bladder cancer Surgical History Surgical History Hx of heart artery stent Social History Social History Household Members: Family Housing: House Do you presently have visiting nurse or other home services: Yes ([facility]) Alcohol intake: never Patient Tobacco Use Status: Never used Tobacco Meds Allergies Allergy/AdvReac Type Severity Reaction Status Date / Time pioglitazone [From Actos] Allergy Severe Anaphylaxis Verified 01/19/25 07:00 Active Medications: Current Medications Clonidine (Clonidine 0.3 Mg Patch.Tdwk) 0.3 mg TRANSDERMA Tu@0900 [facility]; Protocol Last Admin: 01/23/25 10:25 Dose: 0.3 mg Dextrose (Dextrose 50 % 25 Gm/50 Ml Syringe) 25 gm IVPUSH Q15M PRN; Protocol PRN Reason: per Hypoglycemia Standing Ord. Glucose (Glucose Gel 15 Gm Gel..Gram.) 15 gm PO Q15M PRN; Protocol PRN Reason: per Hypoglycemia Standing Ord. Heparin Sodium (Porcine) (Heparin Sodium,Porcine 5,000 Unit/Ml Vial) 5,000 unit SUBCUT Q8H [facility] Last Admin: 01/23/25 11:59 Dose: 5,000 unit Hydralazine HCl (Hydralazine Hcl 20 Mg/Ml Vial) 10 mg IVPUSH Q4H PRN; Protocol PRN Reason: Hypertension Last Admin: 01/23/25 10:18 Dose: 10 mg Sodium Bicarbonate 150 meq/ (Dextrose) 1,000 mls @ 50 mls/hr IV .Q20H KENYA Last Admin: 01/23/25 09:50 Dose: 50 mls/hr Nicardipine HCl 25 mg/ Sodium (Chloride) 250 mls @ 0 mls/hr IVCONT .Q0M KENYA; Protocol Last Titration: 01/23/25 11:06 Dose: 7.5 mg/hr, 75 mls/hr Insulin Human Lispro (Insulin Lispro 100 Unit/Ml 3 Ml Vial) 0 unit SUBCUT Q6H KENYA; Protocol Last Admin: 01/23/25 11:59 Dose: 2 unit Home Medications ?Medication ?Instructions ?Recorded ?Confirmed ?Last Taken ?Type alpha lipoic acid 200 mg capsule 600 mg PO BEDTIME 03/13/22 01/19/25 Unknown History bumetanide 1 mg tablet 1 mg PO Q48H 03/13/22 01/19/25 Unknown History hydralazine 50 mg tablet 75 mg PO QID 03/13/22 01/19/25 Unknown History ascorbic acid (vitamin C) 250 mg 250 mg PO BID 01/13/23 01/19/25 Unknown History tablet mecobalamin (vitamin B12) 1,000 1,000 mcg PO DAILY 01/13/23 01/19/25 Unknown History mcg chewable tablet omeprazole 20 mg capsule,delayed 40 mg PO DAILY@0630 01/13/23 01/19/25 Unknown History release sodium bicarbonate 650 mg tablet 1,300 mg PO TID 01/13/23 01/19/25 Unknown History amlodipine 10 mg tablet 10 mg PO DAILY 04/10/24 01/19/25 Unknown History atorvastatin 20 mg tablet 80 mg PO BEDTIME 04/10/24 01/19/25 Unknown History gabapentin 600 mg tablet 600 mg PO BEDTIME 04/10/24 01/19/25 Unknown History icosapent ethyl 1 gram capsule 1 g PO BID 08/30/24 01/19/25 Unknown History (Vascepa) acetaminophen 325 mg tablet 650 mg PO Q6H PRN Pain/Fever 01/19/25 01/19/25 Unknown History apixaban 2.5 mg tablet (Eliquis) 2.5 mg PO BID 01/19/25 01/19/25 Unknown History bisacodyl 10 mg rectal suppository 10 mg [place] DAILY PRN Constipation 01/19/25 01/19/25 Unknown History cholecalciferol (vitamin D3) 50 50 mcg PO DAILY 01/19/25 01/19/25 Unknown History mcg (2,000 unit) tablet (Vitamin D3) clonidine HCl 0.1 mg tablet 0.1 mg PO BID 01/19/25 01/19/25 Unknown History docusate sodium 100 mg capsule 100 mg PO DAILY 01/19/25 01/19/25 Unknown History ferrous sulfate 137 mg (45 mg 137 mg PO DAILY 01/19/25 01/19/25 Unknown History iron) tablet,extended release insulin glargine 100 unit/mL (3 20 unit subcut BEDTIME 01/19/25 01/19/25 Unknown History mL) subcutaneous pen (Lantus Solostar U-100 Insulin) insulin lispro 100 unit/mL 1 sliding scale dose subcut 01/19/25 01/19/25 Unknown History subcutaneous pen (Humalog KwikPen USEASDIRECTD (U-100) Insulin) labetalol 100 mg tablet 100 mg PO DAILY 01/19/25 01/19/25 Unknown History levothyroxine 125 mcg tablet 125 mcg PO DAILY@0600 01/19/25 01/19/25 Unknown History magnesium hydroxide 400 mg/5 mL 5 ml PO DAILY PRN Constipation 01/19/25 01/19/25 Unknown History oral suspension (Milk of Magnesia) magnesium oxide 400 mg PO DAILY 01/19/25 01/19/25 Unknown History polyethylene glycol 3350 17 17 g PO DAILY 01/19/25 01/19/25 Unknown History gram/dose oral powder (Miralax) sennosides 8.6 mg tablet (senna) 17.2 mg PO BEDTIME Constipation 01/19/25 01/19/25 Unknown History Physical Exam Vital Signs: Last Vital Signs Temp 99.5 F 01/23/25 12:00 Pulse 110 H 01/23/25 12:00 Resp 22 H 01/23/25 12:00 BP 160/63 H 01/23/25 12:00 Pulse Ox 94 01/23/25 12:00 O2 Del Method Room Air 01/23/25 12:00 O2 Flow Rate 35 01/22/25 10:00 FiO2 35 01/22/25 12:00 BMI result Body Mass Index 20.9 Const General: ill appearing Neck Neck: Yes supple Resp Auscultation: clear to auscultation bilaterally Cardio Palpation: no palpable S3 Heart sounds: no rubs GI Palpation (GI): Soft to palpation Auscultation: normal bowel sounds Neuro Motor exam (neuro): no asterixis Results Lab Results 01/25/25 05:20 01/25/25 05:20 Lab results: Chemistry 01/20/25 01/21/25 01/21/25 18:03 04:36 17:59 Sodium 144 144 144 Potassium 3.4 3.9 4.0 Carbon Dioxide 25 23 23 BUN 55 H 61 H 64 H Creatinine 3.10 H 3.24 H 3.47 H Calcium 8.9 8.8 9.1 Phosphorus 4.5 4.9 H 5.9 H 01/22/25 01/23/25 05:50 05:20 Sodium 144 148 H Potassium 4.0 3.9 Carbon Dioxide 24 20 L BUN 71 H 90 H Creatinine 3.85 H 4.22 H* Calcium 8.8 9.0 Phosphorus 6.6 H 7.4 H Hematology 01/21/25 01/22/25 01/23/25 04:36 05:50 05:20 WBC 8.3 8.2 10.5 Hgb 10.1 L 9.9 L 10.5 L Plt Count 270 D 268 274 Assessment and Plan (1) Acute kidney injury superimposed on CKD: Status: Acute (2) Acute combined systolic and diastolic congestive heart failure: Status: Acute Plan 79-year-old woman with acute kidney injury superimposed on chronic kidney disease. Differential diagnosis for acute kidney injury would include tubular injury. Obstruction should be ruled out as well. Urine sediments bland therefore glomerular nephritis or interstitial disease seem less likely. Recommendation check renal ultrasonogram Urine sodium creatinine protein. Optimize blood pressure. Avoid hypotension. Continue overt nephrotoxic agents including vancomycin. No absolute indication for dialysis today. However if renal function does not improve she may require renal replacement therapy in the next few days Shall follow with the team. Procedures Date of Service Date of Service: 01/25/25
[2025-01-23] MEDS: niCARdipine HCL 25 MG in 0.9 % Sodium Chloride 240 ML 100 MG IVCONT ×4 (13:20→22:35)
--- NOTE | 2025-01-23 15:29 | MHC.CM.PN ---
Pt continues care in ICU: on CPAP at night: renal consult to assess for HD need d/t worsening BUN. Pt has been referred to both acute rehab and STR. CM to follow
--- NOTE | 2025-01-23 17:15 | PC.NURSE ---
Assumed care at 0700. Pt. remains minimally verbal, nodding Y/N to questions, following some commands. Pt. A&O to self only. Pt switching between SR/ST and afib on tele, frequent PVCs. SBPs 170s-210s- PRN hydralazine given x1 with no effect- MD notified. Nicardipine gtt started and titrated per JAN- SBPs sustaining <160. Clonidine patch placed to R upper outer arm. Pt. remains on RA, RR16-22. Intermittent loose moist cough. Unable to perform bedside swallow eval d/t pt.s mental status- MD aware. Pt. hot to touch, core temp 99.3-100.0- MD aware. Nunez remains in place, UO decreasing to 5-10 cc/hr- MD notified. Bicarb gtt started per JAN. Family at bedside, updated by MD and this RN. Q2 repositioning and oral care performed, hovermat system in place. Bed locked in lowest position. Plan of care ongoing.
[2025-01-23 17:29] LABS: Glucose, Whole Blood 231 mg/dL (60-115)
[2025-01-23 19:54] LABS: Anion Gap 23 (12-20); Blood Urea Nitrogen 98 mg/dL (9-16); Calcium 9.2 mg/dL (8.4-10.2); Carbon Dioxide 22 mmol/L (22-29); Chloride 107 mmol/L (96-108); Creatinine Clr Calc Pharmacy 11.2; Estimated Glomerular Filt Rate 11; Glucose Random 225 mg/dL (60-115); Magnesium 2.5 mg/dL (1.6-2.6); Phosphorus 5.7 mg/dL (2.7-4.5); Potassium 3.7 mmol/L (3.3-5.1); Sodium 148 mmol/L (135-145)
[2025-01-23] MEDS: niCARdipine HCL 25 MG in 0.9 % Sodium Chloride 240 ML 125 MG IVCONT (20:33)
[2025-01-24] VITALS (46 sets, daily range): BP systolic 122–170; BP diastolic 41–86; PULSE 80–116; RESP 17–29; TEMP 36.9–37.8; O2SAT 91–97; BMI 21.3
[2025-01-24 00:05] LABS: Glucose, Whole Blood 236 mg/dL (60-115)
[2025-01-24] MEDS: Insulin Lispro 100 UNIT/ML 3 ML VIAL SUBCUT ×5 (00:05→23:26)
[2025-01-24] MEDS: niCARdipine HCL 25 MG in 0.9 % Sodium Chloride 240 ML 100 MG IVCONT ×2 (01:05→03:35)
[2025-01-24] MEDS: Heparin Sodium,Porcine 5,000 UNIT/ML VIAL 5000 UNIT SUBCUT ×3 (05:19→20:34)
[2025-01-24 05:37] LABS: VBG Base Excess 6.5 mmol/L; VBG HCO3 27 mmol/L (22-26); VBG pCO2 28 mmHg; VBG pH 7.59 (7.32-7.43); VBG pO2 95 mmHg
[2025-01-24 05:38] LABS: Venous Blood Gas Refer to POC result
[2025-01-24 05:48] LABS: MANUAL DIFF FLAG NO
[2025-01-24 05:49] LABS: Glucose, Whole Blood 190 mg/dL (60-115)
[2025-01-24 05:53] LABS: Basophils Percent Auto 0.4 % (0-2); Hematocrit 29.1 % (37.0-47.0); Hemoglobin 9.3 g/dl (12.0-16.0); Imm Gran Abs Auto 0.12 X10*3/uL (0.00-0.03); Imm Gran Pct Auto 1.2 % (0.0-0.4); Lymphocytes Absolute Auto 0.5 X10*3/uL (1.2-4.9); Lymphocytes Percent Auto 5.2 % (20-40); Mean Corpuscular Hemoglobin 29.2 pg (27.0-33.0); Mean Corpuscular Volume 91.2 fL (80.0-98.0); Mean Platelet Volume 10.6 fL (9.4-12.3); Monocytes Percent Auto 9.4 % (2-11); Neutrophils Absolute Auto 8.5 x10*3/uL (2.0-8.3); Neutrophils Percent Auto 83.8 % (45-73); Platelet Count 286 X10*3/uL (160-400); Red Blood Count 3.19 X10*6/uL (4.20-5.50); White Blood Count 10.1 X10*3/uL (4.8-10.8)
[2025-01-24] MEDS: niCARdipine HCL 25 MG in 0.9 % Sodium Chloride 240 ML 125 MG IVCONT ×9 (06:03→22:33)
[2025-01-24 06:06] LABS: Albumin Level 3.5 g/dL (3.5-5.0); Anion Gap 21 (12-20); Blood Urea Nitrogen 103 mg/dL (9-16); Calcium 8.7 mg/dL (8.4-10.2); Carbon Dioxide 23 mmol/L (22-29); Chloride 108 mmol/L (96-108); Creatinine Clr Calc Pharmacy 11.7; Estimated Glomerular Filt Rate 11; Glucose Random 223 mg/dL (60-115); Magnesium 2.4 mg/dL (1.6-2.6); Phosphorus 4.9 mg/dL (2.7-4.5); Potassium 3.4 mmol/L (3.3-5.1); Sodium 149 mmol/L (135-145)
--- NOTE | 2025-01-24 07:19 | PC.NURSE ---
1999: Upon initial assessment, patient remains drowsy and lethargic. Able to nod and shake head for yes/no. Speech is minimal, with voice hoarse and soft. Patient is able to track speaker and follow simple commands. Moves all extremities weakly. Patient flips between ST and Afib on tele, HR 100s-120s. Nicardipine gtt continues for BP control, see JAN. Patient on RA, lung sounds dim. Abdomen soft and nontender. Nunez cath in place draining clear yellow urine, OUP 15-30mL. Bicarb gtt continues per JAN. Skin warm dry and intact, patient repositioned Q2. Bed alarm on, call barbosa within reach.? 2230: Patient's daughter/HCP updated by this RN via phone on plan of care.? 0700: No acute events overnight. Report given to oncoming RN. Bed locked in lowest possible position, bed alarm on, call barbosa within reach.?
[2025-01-24] MEDS: 0.9 % Sodium Chloride Flush 3 ML SYRINGE IVFLUSH ×3 (08:14→23:49)
[2025-01-24] MEDS: Potassium Chloride/H20 10 MEQ/100 ML PIGGYBACK 100 MEQ IV ×2 (08:26→09:38)
--- NOTE | 2025-01-24 10:34 | MHC.CLN ---
F/U PT S/P EXTUBATION DISCUSSED AT ROUNDS WITH MD PT IS DAY 6 NPO-PLAN TO REMOVE CPAP PER MD AND DO BEDSIDE SWALLOW OR TF IF DIET TO ADVANCE, RECOMMEND 1800DM 2GM NA LOW PHOS DIET IN ADDITION TO ANY GLOBAL UPSTREAM MARKETING MANAGER RECOMMENDATIONS (IF NEEDED) IF TF NEEDED; RECOMMEND NEPRO AT MAX GOAL RATE 40ML/HR WITH 240ML FREE WATER Q 6 HRS TO PROVIDE 1728KCALS (28KCALS/KG), 78G PROTEIN (1.2G/KG), 1658ML TOTAL WATER FROM FORMULA AND FLUSHES (27ML/KG) MONITOR TOLERANCE AND LYTES FOLLOWING FOR DIET ADVANCEMENT
[2025-01-24 11:09] LABS: Glucose, Whole Blood 194 mg/dL (60-115)
--- NOTE | 2025-01-24 11:31 | P.PNCC_ITS ---
Subjective Subjective Date of Service: 01/24/25 Interval History: 79-year-old lady with underlying history of hypertension, hyperlipidemia, diabetes mellitus, CAD, CVA with right-sided hemiparesis, hypothyroidism, LUANA admitted on 01/19/2025 with acute hypoxic respiratory failure and alteration of mental status requiring intubation and ventilatory support. Patient treated for pulmonary edema with diuresis with significant improvement, and also empiric antibiotics for overlying pneumonia. Extubated uneventfully on 01/22/2025. No events overnight. Remains significantly encephalopathic. Critical Care Time (minutes): 45 Physical Exam 2 Vital Signs: Vital Signs: Last Vital Signs Temp 99.7 F 01/24/25 11:00 Pulse 108 H 01/24/25 11:00 Resp 25 H 01/24/25 11:00 BP 155/63 H 01/24/25 11:00 Pulse Ox 91 L 01/24/25 11:00 O2 Del Method Room Air 01/24/25 11:00 O2 Flow Rate 35 01/22/25 10:00 FiO2 35 01/22/25 12:00 BMI result Body Mass Index 21.3 Const: General: no acute distress and lethargic (Arousable) O rientation/consciousness: lethargic (Arousable) Eyes: Sclerae: sclerae normal EOM: EOMs intact bilaterally Neck: Neck: Yes no lymphadenopathy, Yes trachea midline and Yes supple Resp: Effort & Inspection: normal respiratory effort and no respiratory distress Auscultation: clear to auscultation bilaterally Cardio: Rate: tachycardic Rhythm: abnormal rhythm irregularly irregular Heart sounds: no gallops, no murmurs and no rubs GI: Palpation (GI): Soft to palpation and Other GI palpation findings present ( Nontender) Auscultation: normal bowel sounds Extrem: General: No clubbing, No cyanosis and Yes edema (1+ bilateral) Objective Data Labs 01/24/25 05:26 01/24/25 05:26 Labs: Laboratory Results - last 24 hr 01/23/25 01/23/25 01/23/25 17:24 19:19 23:57 WBC RBC Hgb Hct MCV MCH MCHC RDW Plt Count MPV Immature Gran % (Auto) Neut % (Auto) Lymph % (Auto) [place] % (Auto) Eos % (Auto) Baso % (Auto) Lymph # (Auto) [place] # (Auto) Eos # (Auto) Baso # (Auto) Abs Immat Gran (auto) Absolute Neuts (auto) Absolute Nucleated RBC Nucleated RBC % (auto) VBG pH VBG pCO2 VBG pO2 VBG HCO3 VBG O2 Saturation VBG Base Excess Sodium 148 H Potassium 3.7 Chloride 107 Carbon Dioxide 22 Anion Gap 23 H BUN 98 H Creatinine 4.01 H* Estim Creat Clear Calc 11.2 Estimated GFR 11 POC Glucose 231 H 236 H Random Glucose 225 H Calcium 9.2 Phosphorus 5.7 H Magnesium 2.5 Albumin 01/24/25 01/24/25 01/24/25 05:26 05:32 05:45 WBC 10.1 RBC 3.19 L Hgb 9.3 L Hct 29.1 L MCV 91.2 MCH 29.2 MCHC 32.0 RDW 14.0 Plt Count 286 MPV 10.6 Immature Gran % (Auto) 1.2 H Neut % (Auto) 83.8 H Lymph % (Auto) 5.2 L [place] % (Auto) 9.4 Eos % (Auto) 0.0 Baso % (Auto) 0.4 Lymph # (Auto) 0.5 L [place] # (Auto) 1.0 Eos # (Auto) 0.0 Baso # (Auto) 0.0 Abs Immat Gran (auto) 0.12 H Absolute Neuts (auto) 8.5 H Absolute Nucleated RBC 0.000 Nucleated RBC % (auto) 0.0 VBG pH 7.59 H VBG pCO2 28 VBG pO2 95 VBG HCO3 27 H VBG O2 Saturation 97.0 VBG Base Excess 6.5 Sodium 149 H Potassium 3.4 Chloride 108 Carbon Dioxide 23 Anion Gap 21 H BUN 103 H Creatinine 3.88 H Estim Creat Clear Calc 11.7 Estimated GFR 11 POC Glucose 190 H Random Glucose 223 H Calcium 8.7 Phosphorus 4.9 H Magnesium 2.4 Albumin 3.5 01/24/25 11:06 WBC RBC Hgb Hct MCV MCH MCHC RDW Plt Count MPV Immature Gran % (Auto) Neut % (Auto) Lymph % (Auto) [place] % (Auto) Eos % (Auto) Baso % (Auto) Lymph # (Auto) [place] # (Auto) Eos # (Auto) Baso # (Auto) Abs Immat Gran (auto) Absolute Neuts (auto) Absolute Nucleated RBC Nucleated RBC % (auto) VBG pH VBG pCO2 VBG pO2 VBG HCO3 VBG O2 Saturation VBG Base Excess Sodium Potassium Chloride Carbon Dioxide Anion Gap BUN Creatinine Estim Creat Clear Calc Estimated GFR POC Glucose 194 H Random Glucose Calcium Phosphorus Magnesium Albumin Microbiology Microbiology Results: Microbiology 01/19/25 07:38 Blood - Venous Blood Culture - Final No growth after 5 days. 01/19/25 07:14 Blood - Venous Blood Culture - Final No growth after 5 days. Progress Note: A&P Assessment and plan (1) Acute combined systolic and diastolic congestive heart failure: Status: Acute (2) CAD (coronary artery disease): Status: Acute (3) Diabetes: Status: Acute (4) Hypothyroid: Status: Acute (5) Acute kidney injury superimposed on CKD: Status: Acute (6) Right hemiparesis: Status: Inactive (7) Dementia: Status: Acute (8) Obstructive sleep apnea: Status: Acute Plan Assessment: 79-year-old lady admitted with acute hypoxic respiratory failure requiring ventilatory support, likely secondary to acute on chronic combined systolic and diastolic congestive heart failure, improved with diuresis, extubated on 01/22/2025. Plan: Neuro: Lethargy likely related to underlying metabolic encephalopathy, expect to improve with resolution of uremia. Cardiac: Acute on chronic combined systolic and diastolic congestive heart failure improved with diuresis. Cardiology service care appreciated. Pulmonary: Acute hypoxic respiratory failure secondary to exacerbation of underlying congestive heart failure initially requiring ventilatory support, extubated on 01/22/2025. Concern for low volume silent recurrent aspirations. Renal: Acute renal failure on background of chronic renal disease, secondary to exacerbation of underlying congestive heart failure, worsening. Non oliguric. Now with significant uremia, may require dialysis. Nephrology evaluation requested. Continue to monitor renal indices and urine output. Endo: No acute issues. Underlying diabetes mellitus on subcutaneous insulin. GI: No acute issues. ID: No acute issues Heme/Onc: Cultures negative to date, leukocytosis resolved, continue to monitor off antibiotics. Psych: No acute issues. Miscellaneous: No acute issues. Prophylaxis: Heparin Diet: Pending swallow evaluation Critical care time spent: 45 minutes Quality Stroke Does the patient have a stroke diagnosis?: No VTE Prior VTE?: No VTE Risk Level:: Medical - moderate - high VTE Device Contraindication: N/A - Device Ordered VTE Drug Contraindication: N/A - Med Ordered
--- NOTE | 2025-01-24 13:59 | P.PNNP_ITS ---
Subjective Subjective Date of Service: 01/24/25 Interval history: No events overnight. Remains significantly encephalopathic. All recent data reviewed Physical Exam 2 Vital Signs: Vital Signs: Last Vital Signs Temp 99.7 F 01/24/25 13:00 Pulse 116 H 01/24/25 13:00 Resp 20 01/24/25 13:00 BP 162/61 H 01/24/25 13:00 Pulse Ox 94 01/24/25 13:00 O2 Del Method Room Air 01/24/25 13:00 O2 Flow Rate 35 01/22/25 10:00 FiO2 35 01/22/25 12:00 BMI result Body Mass Index 21.3 Const: General: no acute distress Neck: Neck: Yes supple Resp: Auscultation: diminished lung sounds Cardio: Rate: regular rate GI: Palpation (GI): Soft to palpation Neuro: General: moves all extremities Objective Data Labs 01/24/25 05:26 01/24/25 05:26 Labs: Laboratory Results - last 24 hr 01/23/25 01/23/25 01/23/25 17:24 19:19 23:57 WBC RBC Hgb Hct MCV MCH MCHC RDW Plt Count MPV Immature Gran % (Auto) Neut % (Auto) Lymph % (Auto) [place] % (Auto) Eos % (Auto) Baso % (Auto) Lymph # (Auto) [place] # (Auto) Eos # (Auto) Baso # (Auto) Abs Immat Gran (auto) Absolute Neuts (auto) Absolute Nucleated RBC Nucleated RBC % (auto) VBG pH VBG pCO2 VBG pO2 VBG HCO3 VBG O2 Saturation VBG Base Excess Sodium 148 H Potassium 3.7 Chloride 107 Carbon Dioxide 22 Anion Gap 23 H BUN 98 H Creatinine 4.01 H* Estim Creat Clear Calc 11.2 Estimated GFR 11 POC Glucose 231 H 236 H Random Glucose 225 H Calcium 9.2 Phosphorus 5.7 H Magnesium 2.5 Albumin 01/24/25 01/24/25 01/24/25 05:26 05:32 05:45 WBC 10.1 RBC 3.19 L Hgb 9.3 L Hct 29.1 L MCV 91.2 MCH 29.2 MCHC 32.0 RDW 14.0 Plt Count 286 MPV 10.6 Immature Gran % (Auto) 1.2 H Neut % (Auto) 83.8 H Lymph % (Auto) 5.2 L [place] % (Auto) 9.4 Eos % (Auto) 0.0 Baso % (Auto) 0.4 Lymph # (Auto) 0.5 L [place] # (Auto) 1.0 Eos # (Auto) 0.0 Baso # (Auto) 0.0 Abs Immat Gran (auto) 0.12 H Absolute Neuts (auto) 8.5 H Absolute Nucleated RBC 0.000 Nucleated RBC % (auto) 0.0 VBG pH 7.59 H VBG pCO2 28 VBG pO2 95 VBG HCO3 27 H VBG O2 Saturation 97.0 VBG Base Excess 6.5 Sodium 149 H Potassium 3.4 Chloride 108 Carbon Dioxide 23 Anion Gap 21 H BUN 103 H Creatinine 3.88 H Estim Creat Clear Calc 11.7 Estimated GFR 11 POC Glucose 190 H Random Glucose 223 H Calcium 8.7 Phosphorus 4.9 H Magnesium 2.4 Albumin 3.5 01/24/25 11:06 WBC RBC Hgb Hct MCV MCH MCHC RDW Plt Count MPV Immature Gran % (Auto) Neut % (Auto) Lymph % (Auto) [place] % (Auto) Eos % (Auto) Baso % (Auto) Lymph # (Auto) [place] # (Auto) Eos # (Auto) Baso # (Auto) Abs Immat Gran (auto) Absolute Neuts (auto) Absolute Nucleated RBC Nucleated RBC % (auto) VBG pH VBG pCO2 VBG pO2 VBG HCO3 VBG O2 Saturation VBG Base Excess Sodium Potassium Chloride Carbon Dioxide Anion Gap BUN Creatinine Estim Creat Clear Calc Estimated GFR POC Glucose 194 H Random Glucose Calcium Phosphorus Magnesium Albumin Microbiology Microbiology Results: Microbiology 01/19/25 07:38 Blood - Venous Blood Culture - Final No growth after 5 days. 01/19/25 07:14 Blood - Venous Blood Culture - Final No growth after 5 days. Procedures Date of Service Date of Service: 01/24/25 Assessment & Plan Assessment and plan (1) Acute kidney injury superimposed on CKD: Status: Acute Plan 79-year-old woman with acute kidney injury superimposed on chronic kidney disease due to tubular injury. Urine sediments bland therefore glomerular nephritis or interstitial disease seem less likely. Serum creatinine stable; UO fair; Continue current medication regimen No absolute indication for renal replacement; Labs AM; Shall F/U closely Progress Note: Quality Stroke Does the patient have a stroke diagnosis?: No
--- NOTE | 2025-01-24 16:25 | MHC.SL.SWA ---
Speech Pathologist Impression: Dysphagia secondary to weakness, post-extubation. Pt aphonic, limits to oropharyngeal strength at this time. Recc NPO with ice chips permitted, daily re-assessment of functional swallow. Risk of Aspiration Due to: Lethargy Medically Fragile Hx of Recent Extubation Hx of CVA w/residual R sided weakness Dysphasia Diet Status: Liquid Consistency and Strategies for Safe Swallow: Liquid Intake Recommendation: NPO Liquid Intake Strategies: Solid Food Consistency: Dietary Recommendations: NPO Additional Modifications to Solid Foods: Ice chips permitted Oral Medication Intake: NPO Please contact the pharmacy regarding appropriate crushable or liquid drug formulations that are available whenever modified delivery is recommended. Compensatory Strategies and Precautions to be Taken for Safe Swallow: Sitting Upright (90 deg) Supervision While Eating and Drinking for Safe Swallow: Total Supervision (1:1) Foods to Avoid: Swallowing Recommended Treatments: Compens. Strategy Educat. Recommendation for Speech: Inpatient Speech Therapy Comment: Pt tolerated ice chips by single presentations with tsp, pt remains weak, not ready for PO trials yet. PUBLIC HEALTH SERVICE OFFICER to re-assess daily. Frequency/Duration: Daily M-F Date Range for Service Req: Timeline to reassess: Jackhammer Operator Clinican/Clinical Fellow: No Supervisory Statement: I have reviewed and agree with the student/clinical fellow's documentation: N/A Speech Language Pathologist: Carol Ann Ibarra M.S., CCC-PUBLIC HEALTH SERVICE OFFICER
[2025-01-24 17:38] LABS: Glucose, Whole Blood 186 mg/dL (60-115)
--- NOTE | 2025-01-24 18:38 | PC.NURSE ---
No changes to nicardapine gtt, SBP goal <160/ KO feeding tube placed, confirmed by CXR. Tube feeding started; glucerna currently at 30, goal is 60. Mental status improved, follows simple commands, answering to yes or no questions, responding with simple words at times. Nephro consult for potential dialysis.
[2025-01-24] MEDS: Labetalol HCL 100 MG TABLET PO (22:04)
[2025-01-24 23:21] LABS: Glucose, Whole Blood 204 mg/dL (60-115)
[2025-01-25] VITALS (34 sets, daily range): BP systolic 133–173; BP diastolic 52–71; PULSE 75–122; RESP 21–30; TEMP 37.3–37.9; O2SAT 90–94; BMI 21.7
[2025-01-25] MEDS: niCARdipine HCL 25 MG in 0.9 % Sodium Chloride 240 ML IVCONT (01:45)
[2025-01-25] MEDS: Heparin Sodium,Porcine 5,000 UNIT/ML VIAL 5000 UNIT SUBCUT ×3 (05:30→20:22)
[2025-01-25 05:34] LABS: VBG Base Excess 2.2 mmol/L; VBG HCO3 23 mmol/L (22-26); VBG pCO2 25 mmHg; VBG pH 7.57 (7.32-7.43); VBG pO2 73 mmHg
[2025-01-25 05:37] LABS: Venous Blood Gas Refer to POC result
[2025-01-25 05:56] LABS: MANUAL DIFF FLAG NO
[2025-01-25 06:07] LABS: Basophils Percent Auto 0.5 % (0-2); Eosinophils Percent Auto 0.1 % (0-4); Hematocrit 26.1 % (37.0-47.0); Hemoglobin 8.7 g/dl (12.0-16.0); Imm Gran Abs Auto 0.09 X10*3/uL (0.00-0.03); Lymphocytes Absolute Auto 0.6 X10*3/uL (1.2-4.9); Lymphocytes Percent Auto 6.5 % (20-40); Mean Corpuscular HGB Conc 33.3 g/dl (31.0-35.0); Mean Corpuscular Hemoglobin 30.3 pg (27.0-33.0); Mean Corpuscular Volume 90.9 fL (80.0-98.0); Mean Platelet Volume 10.7 fL (9.4-12.3); Monocytes Absolute Auto 0.9 X10*3/uL (0.1-1.2); Monocytes Percent Auto 10.5 % (2-11); Neutrophils Absolute Auto 7.1 x10*3/uL (2.0-8.3); Neutrophils Percent Auto 81.4 % (45-73); Platelet Count 243 X10*3/uL (160-400); Red Blood Count 2.87 X10*6/uL (4.20-5.50); Red Cell Distribution Width 14.1 % (11.0-16.0); White Blood Count 8.7 X10*3/uL (4.8-10.8)
[2025-01-25 06:11] LABS: Albumin Level 3.4 g/dL (3.5-5.0); Anion Gap 20 (12-20); Blood Urea Nitrogen 107 mg/dL (9-16); Calcium 9.2 mg/dL (8.4-10.2); Carbon Dioxide 21 mmol/L (22-29); Chloride 115 mmol/L (96-108); Creatinine Clr Calc Pharmacy 12.2; Estimated Glomerular Filt Rate 12; Glucose Random 233 mg/dL (60-115); Magnesium 2.5 mg/dL (1.6-2.6); Phosphorus 4.5 mg/dL (2.7-4.5); Potassium 3.8 mmol/L (3.3-5.1); Sodium 152 mmol/L (135-145)
[2025-01-25] MEDS: Insulin Lispro 100 UNIT/ML 3 ML VIAL SUBCUT ×4 (06:40→23:43)
[2025-01-25] MEDS: 0.9 % Sodium Chloride Flush 3 ML SYRINGE IVFLUSH ×3 (07:43→23:24)
[2025-01-25] MEDS: Labetalol HCL 100 MG TABLET PO (09:14)
--- NOTE | 2025-01-25 10:37 | MHC.CLN ---
F/U PT WITH KEOFEED TUBE IN PLACE DISCUSSED AT ROUNDS WITH MD CURRENT TF GLUCERNA AT 60ML/HR WITH 120ML FWF Q 4 HRS REVIEWED LABS RECOMMEND TF NEPRO AT MAX GOAL RATE 40ML/HR WITH 240ML FREE WATER FLUSHES TO PROVIDE 1728KCALS (28KCALS/KG), 78G PROTEIN (1.2G/KG), 1658ML TOTAL WATER FROM FORMULA AND FLUSHES (27ML/KG) MONITOR TOLERANCE AND LYTES SEE ALSO FULL CLINICAL NUTRITION ASSESSMENT
--- NOTE | 2025-01-25 10:49 | MHC.CM.PN ---
PT continues care in ICU: on a Cardene gtt for BP control: Pt will be able to transfer to a medical floor once she is off this med. Pt will need PT/OT evals in preparation for rehab. Pt had been at [facility] - clinical update remitted to SNF as well as to acute rehabs of pt/family choice. CM to follow
[2025-01-25] MEDS: niCARdipine HCL 25 MG in 0.9 % Sodium Chloride 240 ML 50 MG IVCONT ×2 (10:56→23:07)
[2025-01-25] MEDS: Levothyroxine Sodium 125 MCG TABLET PO (11:29)
[2025-01-25] MEDS: hydrALAZINE HCl 50 MG TABLET PO ×4 (11:29→20:21)
[2025-01-25] MEDS: amLODIPine Besylate 10 MG TABLET PO (11:29)
[2025-01-25 12:01] LABS: Glucose, Whole Blood 267 mg/dL (60-115)
--- NOTE | 2025-01-25 12:27 | MHC.SLORD ---
Speech Language Pathology Order Status: Patient now with NG Tube, continues lethargic, not following direction per RN secondary to ecephalopathy, not appropriate today for PO trials. SUPERVISOR WINTER will contiue to follow.
--- NOTE | 2025-01-25 14:39 | P.PNCC_ITS ---
Subjective Subjective Date of Service: 01/25/25 Interval History: 79-year-old lady with underlying history of hypertension, hyperlipidemia, diabetes mellitus, CAD, CVA with right-sided hemiparesis, hypothyroidism, LUANA admitted on 01/19/2025 with acute hypoxic respiratory failure and alteration of mental status requiring intubation and ventilatory support. Patient treated for pulmonary edema with diuresis with significant improvement, and also empiric antibiotics for overlying pneumonia. Extubated uneventfully on 01/22/2025. No events overnight. Remains significantly encephalopathic. Titrated off Cardene drip. Critical Care Time (minutes): 45 Physical Exam 2 Vital Signs: Vital Signs: Last Vital Signs Temp 99.3 F 01/25/25 13:00 Pulse 103 H 01/25/25 13:00 Resp 26 H 01/25/25 13:00 BP 160/61 H 01/25/25 13:00 Pulse Ox 91 L 01/25/25 13:00 O2 Del Method Room Air 01/25/25 13:00 O2 Flow Rate 35 01/22/25 10:00 FiO2 35 01/22/25 12:00 BMI result Body Mass Index 21.7 Const: General: no acute distress and lethargic Orientation/consciousness: lethargic Eyes: Sclerae: sclerae normal EOM: EOMs intact bilaterally Neck: Neck: Yes no lymphadenopathy, Yes trachea midline and Yes supple Resp: Effort & Inspection: normal respiratory effort and no respiratory distress Auscultation: crackles (Mild bibasilar) Cardio: Rate: tachycardic Rhythm: abnormal rhythm irregularly irregular Heart sounds: no gallops, no murmurs and no rubs GI: Palpation (GI): Soft to palpation and Other GI palpation findings present ( Nontender) Auscultation: normal bowel sounds Extrem: General: No clubbing, No cyanosis and Yes edema (1+ bilateral) Objective Data Labs 01/25/25 05:20 01/25/25 05:20 Labs: Laboratory Results - last 24 hr 01/24/25 01/24/25 01/25/25 17:33 23:17 05:20 WBC 8.7 RBC 2.87 L Hgb 8.7 L Hct 26.1 L MCV 90.9 MCH 30.3 MCHC 33.3 RDW 14.1 Plt Count 243 MPV 10.7 Immature Gran % (Auto) 1.0 H Neut % (Auto) 81.4 H Lymph % (Auto) 6.5 L [place] % (Auto) 10.5 Eos % (Auto) 0.1 Baso % (Auto) 0.5 Lymph # (Auto) 0.6 L [place] # (Auto) 0.9 Eos # (Auto) 0.0 Baso # (Auto) 0.0 Abs Immat Gran (auto) 0.09 H Absolute Neuts (auto) 7.1 Absolute Nucleated RBC 0.000 Nucleated RBC % (auto) 0.0 VBG pH VBG pCO2 VBG pO2 VBG HCO3 VBG O2 Saturation VBG Base Excess Sodium 152 H Potassium 3.8 Chloride 115 H Carbon Dioxide 21 L Anion Gap 20 BUN 107 H Creatinine 3.74 H Estim Creat Clear Calc 12.2 Estimated GFR 12 POC Glucose 186 H 204 H Random Glucose 233 H Calcium 9.2 Phosphorus 4.5 Magnesium 2.5 Albumin 3.4 L 01/25/25 01/25/25 05:29 11:54 WBC RBC Hgb Hct MCV MCH MCHC RDW Plt Count MPV Immature Gran % (Auto) Neut % (Auto) Lymph % (Auto) [place] % (Auto) Eos % (Auto) Baso % (Auto) Lymph # (Auto) [place] # (Auto) Eos # (Auto) Baso # (Auto) Abs Immat Gran (auto) Absolute Neuts (auto) Absolute Nucleated RBC Nucleated RBC % (auto) VBG pH 7.57 H VBG pCO2 25 VBG pO2 73 VBG HCO3 23 VBG O2 Saturation 94.0 VBG Base Excess 2.2 Sodium Potassium Chloride Carbon Dioxide Anion Gap BUN Creatinine Estim Creat Clear Calc Estimated GFR POC Glucose 267 H Random Glucose Calcium Phosphorus Magnesium Albumin Microbiology Microbiology Results: Microbiology 01/19/25 07:38 Blood - Venous Blood Culture - Final No growth after 5 days. 01/19/25 07:14 Blood - Venous Blood Culture - Final No growth after 5 days. Progress Note: A&P Assessment and plan (1) HTN (hypertension): Status: Acute (2) Acute combined systolic and diastolic congestive heart failure: Status: Acute (3) CAD (coronary artery disease): Status: Acute (4) Diabetes: Status: Acute (5) Hypothyroid: Status: Acute (6) Acute kidney injury superimposed on CKD: Status: Acute (7) Right hemiparesis: Status: Inactive (8) Dementia: Status: Acute (9) Metabolic encephalopathy: Status: Acute (10) Obstructive sleep apnea: Status: Acute Plan Assessment: 79-year-old lady admitted with acute hypoxic respiratory failure requiring ventilatory support, likely secondary to acute on chronic combined systolic and diastolic congestive heart failure, improved with diuresis, extubated on 01/22/2025. Plan: Neuro: Lethargy likely related to underlying metabolic encephalopathy, expect to improve with resolution of uremia. Cardiac: Acute on chronic combined systolic and diastolic congestive heart failure improved with diuresis. Cardiology service care appreciated. Titrated off Cardene drip. Pulmonary: Acute hypoxic respiratory failure secondary to exacerbation of underlying congestive heart failure initially requiring ventilatory support, extubated on 01/22/2025. Concern for low volume silent recurrent aspirations. Renal: Acute renal failure on background of chronic renal disease, secondary to exacerbation of underlying congestive heart failure, worsening. Non oliguric. Now with significant uremia, may require dialysis. Nephrology service care appreciated. Continue to monitor renal indices and urine output. Endo: No acute issues. Underlying diabetes mellitus on subcutaneous insulin. GI: No acute issues. ID: No acute issues Heme/Onc: Cultures negative to date, leukocytosis resolved, continue to monitor off antibiotics. Psych: No acute issues. Miscellaneous: No acute issues. Prophylaxis: Heparin Diet: Tube feeds Critical care time spent: 45 minutes Quality Stroke Does the patient have a stroke diagnosis?: No VTE Prior VTE?: No VTE Risk Level:: Medical - moderate - high VTE Device Contraindication: N/A - Device Ordered VTE Drug Contraindication: N/A - Med Ordered
--- NOTE | 2025-01-25 15:05 | P.PNNP_ITS ---
Subjective Subjective Date of Service: 01/25/25 Interval history: 79-year-old lady with underlying history of hypertension, hyperlipidemia, diabetes mellitus, CAD, CVA with right-sided hemiparesis, hypothyroidism, LUANA admitted on 01/19/2025 with acute hypoxic respiratory failure and alteration of mental status requiring intubation and ventilatory support. Patient treated for pulmonary edema with diuresis with significant improvement, and also empiric antibiotics for overlying pneumonia. Extubated uneventfully on 01/22/2025. Physical Exam 2 Vital Signs: Vital Signs: Last Vital Signs Temp 99.3 F 01/25/25 14:00 Pulse 105 H 01/25/25 14:00 Resp 25 H 01/25/25 14:00 BP 159/66 H 01/25/25 14:00 Pulse Ox 90 L 01/25/25 14:00 O2 Del Method Room Air 01/25/25 14:00 O2 Flow Rate 35 01/22/25 10:00 FiO2 35 01/22/25 12:00 BMI result Body Mass Index 21.7 Const: General: ill appearing Neck: Neck: Yes supple Resp: Auscultation: clear to auscultation bilaterally Cardio: Palpation: no palpable S3 Heart sounds: no rubs GI: Palpation (GI): Soft to palpation Auscultation: normal bowel sounds Neuro: Motor exam (neuro): no asterixis Objective Data Labs 01/29/25 05:06 01/29/25 05:06 Labs: Laboratory Results - last 24 hr 01/24/25 01/24/25 01/25/25 17:33 23:17 05:20 WBC 8.7 RBC 2.87 L Hgb 8.7 L Hct 26.1 L MCV 90.9 MCH 30.3 MCHC 33.3 RDW 14.1 Plt Count 243 MPV 10.7 Immature Gran % (Auto) 1.0 H Neut % (Auto) 81.4 H Lymph % (Auto) 6.5 L [place] % (Auto) 10.5 Eos % (Auto) 0.1 Baso % (Auto) 0.5 Lymph # (Auto) 0.6 L [place] # (Auto) 0.9 Eos # (Auto) 0.0 Baso # (Auto) 0.0 Abs Immat Gran (auto) 0.09 H Absolute Neuts (auto) 7.1 Absolute Nucleated RBC 0.000 Nucleated RBC % (auto) 0.0 VBG pH VBG pCO2 VBG pO2 VBG HCO3 VBG O2 Saturation VBG Base Excess Sodium 152 H Potassium 3.8 Chloride 115 H Carbon Dioxide 21 L Anion Gap 20 BUN 107 H Creatinine 3.74 H Estim Creat Clear Calc 12.2 Estimated GFR 12 POC Glucose 186 H 204 H Random Glucose 233 H Calcium 9.2 Phosphorus 4.5 Magnesium 2.5 Albumin 3.4 L 01/25/25 01/25/25 05:29 11:54 WBC RBC Hgb Hct MCV MCH MCHC RDW Plt Count MPV Immature Gran % (Auto) Neut % (Auto) Lymph % (Auto) [place] % (Auto) Eos % (Auto) Baso % (Auto) Lymph # (Auto) [place] # (Auto) Eos # (Auto) Baso # (Auto) Abs Immat Gran (auto) Absolute Neuts (auto) Absolute Nucleated RBC Nucleated RBC % (auto) VBG pH 7.57 H VBG pCO2 25 VBG pO2 73 VBG HCO3 23 VBG O2 Saturation 94.0 VBG Base Excess 2.2 Sodium Potassium Chloride Carbon Dioxide Anion Gap BUN Creatinine Estim Creat Clear Calc Estimated GFR POC Glucose 267 H Random Glucose Calcium Phosphorus Magnesium Albumin Imaging US - abdomen: Radiologist's impression: US/US renal BI IMPRESSION: 1. Moderate to severe diffuse right renal atrophy. 2. No hydronephrosis of either kidney. 3. 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 4. Incidental note made of echogenic sludge with tiny gallstones layering within the gallbladder. Microbiology Microbiology Results: Microbiology 01/19/25 07:38 Blood - Venous Blood Culture - Final No growth after 5 days. 01/19/25 07:14 Blood - Venous Blood Culture - Final No growth after 5 days. Procedures Date of Service Date of Service: 01/29/25 Assessment & Plan Assessment and plan (1) Acute kidney injury superimposed on CKD: Status: Acute (2) Acute combined systolic and diastolic congestive heart failure: Status: Acute Plan 79-year-old woman with acute kidney injury superimposed on chronic kidney disease. Differential diagnosis for acute kidney injury would include tubular injury. No obstruction based on renal ultrasonogram. Moderately atrophic right kidney. Urine sediments bland therefore glomerular nephritis or interstitial disease seem less likely. Hypernatremia due to free water deficit Optimize blood pressure. Avoid hypotension. Keep I > O with hypotonic fluids ( free water) Continue to avoid nephrotoxic agents including vancomycin. No absolute indication for dialysis and creatinine is gradually trending down. Shall follow with the team. Time Spent With Patient Time: Total time managing care of this patient today ____ minutes. Progress Note: Quality Stroke Does the patient have a stroke diagnosis?: No
[2025-01-25 18:06] LABS: Glucose, Whole Blood 223 mg/dL (60-115)
--- NOTE | 2025-01-25 19:25 | PC.NURSE ---
assumed care of patient at 0700 at 01/25/25. patient course uncomplicated today. see shift assessment for head to toe. resumed anti-hypertensive medications today PER MD (see JAN). drips infused per JAN. MD at the bedside at approx. 14:00 to update family. all family questions answered. SEE MD note for PLAN.
[2025-01-25 23:34] LABS: Glucose, Whole Blood 254 mg/dL (60-115)
[2025-01-26] VITALS (35 sets, daily range): BP systolic 104–176; BP diastolic 48–74; PULSE 72–129; RESP 20–29; TEMP 37.2–38.1; O2SAT 90–97; BMI 24.9
[2025-01-26] MEDS: Heparin Sodium,Porcine 5,000 UNIT/ML VIAL 5000 UNIT SUBCUT ×3 (05:24→21:21)
[2025-01-26] MEDS: Levothyroxine Sodium 125 MCG TABLET PO (05:24)
[2025-01-26 05:32] LABS: VBG Base Excess 1.5 mmol/L; VBG HCO3 21 mmol/L (22-26); VBG pCO2 21 mmHg; VBG pH 7.61 (7.32-7.43); VBG pO2 79 mmHg
[2025-01-26 05:33] LABS: Venous Blood Gas Refer to POC result
[2025-01-26] MEDS: niCARdipine HCL 25 MG in 0.9 % Sodium Chloride 240 ML 50 MG IVCONT ×3 (05:37→23:56)
[2025-01-26 05:44] LABS: Eosinophils Percent Auto 0.3 % (0-4); Hemoglobin 9.1 g/dl (12.0-16.0); PLT CLUMP 1; Red Cell Distribution Width 14.2 % (11.0-16.0); SCAN SMEAR FLAG 1
[2025-01-26 05:47] LABS: Basophils Absolute Auto 0.1 X10*3/uL (0.0-0.2); Basophils Percent Auto 0.7 % (0-2); Hematocrit 27.9 % (37.0-47.0); Imm Gran Abs Auto 0.36 X10*3/uL (0.00-0.03); Imm Gran Pct Auto 2.7 % (0.0-0.4); Lymphocytes Absolute Auto 0.6 X10*3/uL (1.2-4.9); Lymphocytes Percent Auto 4.1 % (20-40); MANUAL DIFF FLAG SCAN; Mean Corpuscular HGB Conc 32.6 g/dl (31.0-35.0); Mean Corpuscular Hemoglobin 29.9 pg (27.0-33.0); Mean Corpuscular Volume 91.8 fL (80.0-98.0); Mean Platelet Volume 11.2 fL (9.4-12.3); Monocytes Absolute Auto 1.2 X10*3/uL (0.1-1.2); Monocytes Percent Auto 8.8 % (2-11); Neutrophils Absolute Auto 11.2 x10*3/uL (2.0-8.3); Neutrophils Percent Auto 83.4 % (45-73); Red Blood Count 3.04 X10*6/uL (4.20-5.50)
[2025-01-26 05:50] LABS: Platelet Count 262 X10*3/uL (160-400); White Blood Count 13.4 X10*3/uL (4.8-10.8)
[2025-01-26 06:01] LABS: Albumin Level 3.5 g/dL (3.5-5.0); Anion Gap 20 (12-20); Blood Urea Nitrogen 107 mg/dL (9-16); Calcium 9.7 mg/dL (8.4-10.2); Carbon Dioxide 19 mmol/L (22-29); Chloride 115 mmol/L (96-108); Creatinine Clr Calc Pharmacy 13.9; Estimated Glomerular Filt Rate 13; Glucose Random 315 mg/dL (60-115); Magnesium 2.4 mg/dL (1.6-2.6); Phosphorus 3.9 mg/dL (2.7-4.5); Potassium 3.6 mmol/L (3.3-5.1); Sodium 150 mmol/L (135-145)
[2025-01-26] MEDS: Insulin Lispro 100 UNIT/ML 3 ML VIAL SUBCUT ×4 (06:12→23:39)
[2025-01-26 06:28] LABS: SLIDE REVIEW VERIFIED
[2025-01-26] MEDS: amLODIPine Besylate 10 MG TABLET PO (08:23)
[2025-01-26] MEDS: Labetalol HCL 100 MG TABLET PO (08:23)
[2025-01-26] MEDS: hydrALAZINE HCl 50 MG TABLET PO ×4 (08:23→21:21)
[2025-01-26] MEDS: 0.9 % Sodium Chloride Flush 3 ML SYRINGE IVFLUSH ×3 (08:23→21:21)
[2025-01-26] MEDS: Dextrose 5 % 1,000 ML 100 ML IVCONT ×2 (09:22→19:11)
--- NOTE | 2025-01-26 10:59 | MHC.CLN ---
F/U PT WITH KEOFEED TUBE IN PLACE DISCUSSED AT ROUNDS WITH MD REVIEWED LABS RECEIVING TF NEPRO AT MAX GOAL RATE 40ML/HR WITH 300ML FREE WATER FLUSHES Q 4 HRS PROVIDES 1728KCALS (28KCALS/KG), 78G PROTEIN (1.2G/KG), 2498ML TOTAL WATER FROM FORMULA AND FLUSHES (40ML/KG) MONITOR TOLERANCE AND LYTES CAN REDUCE FREE WATER FLUSHES WHEN SERUM SODIUM WNL; RECOMMEND 240ML FWF Q 6 HRS
[2025-01-26 11:24] LABS: Glucose, Whole Blood 317 mg/dL (60-115)
--- NOTE | 2025-01-26 12:02 | P.PNCC_ITS ---
Subjective Subjective Date of Service: 01/26/25 Interval History: 79-year-old lady with underlying history of hypertension, hyperlipidemia, diabetes mellitus, CAD, CVA with right-sided hemiparesis, hypothyroidism, LUANA admitted on 01/19/2025 with acute hypoxic respiratory failure and alteration of mental status requiring intubation and ventilatory support. Patient treated for pulmonary edema with diuresis with significant improvement, and also empiric antibiotics for overlying pneumonia. Extubated uneventfully on 01/22/2025. No events overnight. Remains significantly encephalopathic. On/off Cardene drip. Critical Care Time (minutes): 45 Physical Exam 2 Vital Signs: Vital Signs: Last Vital Signs Temp 99.3 F 01/26/25 11:00 Pulse 80 01/26/25 11:00 Resp 24 H 01/26/25 11:00 BP 154/73 H 01/26/25 11:00 Pulse Ox 94 01/26/25 11:00 O2 Del Method Nasal Cannula 01/26/25 11:00 O2 Flow Rate 2 01/26/25 11:00 FiO2 35 01/22/25 12:00 BMI result Body Mass Index 24.9 Const: General: no acute distress and lethargic Orientation/consciousness: lethargic Eyes: Sclerae: sclerae normal EOM: EOMs intact bilaterally Neck: Neck: Yes no lymphadenopathy, Yes trachea midline and Yes supple Resp: Effort & Inspection: normal respiratory effort and no respiratory distress Auscultation: crackles (Mild bilateral) Cardio: Rate: regular rate Rhythm: abnormal rhythm irregularly irregular Heart sounds: no gallops, no murmurs and no rubs GI: Palpation (GI): Soft to palpation and Other GI palpation findings present ( Nontender) Auscultation: normal bowel sounds Extrem: General: No clubbing, No cyanosis and Yes edema (1+ bilateral) Objective Data Labs 01/26/25 05:26 01/26/25 05:26 Labs: Laboratory Results - last 24 hr 01/25/25 01/25/25 01/26/25 18:00 23:30 05:26 WBC 13.4 H RBC 3.04 L Hgb 9.1 L Hct 27.9 L MCV 91.8 MCH 29.9 MCHC 32.6 RDW 14.2 Plt Count 262 MPV 11.2 Immature Gran % (Auto) 2.7 H Neut % (Auto) 83.4 H Lymph % (Auto) 4.1 L [place] % (Auto) 8.8 Eos % (Auto) 0.3 Baso % (Auto) 0.7 Lymph # (Auto) 0.6 L [place] # (Auto) 1.2 Eos # (Auto) 0.0 Baso # (Auto) 0.1 Abs Immat Gran (auto) 0.36 H Absolute Neuts (auto) 11.2 H Absolute Nucleated RBC 0.000 Nucleated RBC % (auto) 0.0 Smear Tech's Comments VERIFIED VBG pH VBG pCO2 VBG pO2 VBG HCO3 VBG O2 Saturation VBG Base Excess Sodium 150 H Potassium 3.6 Chloride 115 H Carbon Dioxide 19 L Anion Gap 20 BUN 107 H Creatinine 3.30 H Estim Creat Clear Calc 13.9 Estimated GFR 13 POC Glucose 223 H 254 H Random Glucose 315 H Calcium 9.7 Phosphorus 3.9 Magnesium 2.4 Albumin 3.5 01/26/25 01/26/25 05:29 11:17 WBC RBC Hgb Hct MCV MCH MCHC RDW Plt Count MPV Immature Gran % (Auto) Neut % (Auto) Lymph % (Auto) [place] % (Auto) Eos % (Auto) Baso % (Auto) Lymph # (Auto) [place] # (Auto) Eos # (Auto) Baso # (Auto) Abs Immat Gran (auto) Absolute Neuts (auto) Absolute Nucleated RBC Nucleated RBC % (auto) Smear Tech's Comments VBG pH 7.61 H* VBG pCO2 21 VBG pO2 79 VBG HCO3 21 L VBG O2 Saturation 95.0 VBG Base Excess 1.5 Sodium Potassium Chloride Carbon Dioxide Anion Gap BUN Creatinine Estim Creat Clear Calc Estimated GFR POC Glucose 317 H Random Glucose Calcium Phosphorus Magnesium Albumin Microbiology Microbiology Results: Microbiology 01/19/25 07:38 Blood - Venous Blood Culture - Final No growth after 5 days. 01/19/25 07:14 Blood - Venous Blood Culture - Final No growth after 5 days. Progress Note: A&P Assessment and plan (1) Acute combined systolic and diastolic congestive heart failure: Status: Acute (2) CAD (coronary artery disease): Status: Acute (3) Diabetes: Status: Acute (4) Hypothyroid: Status: Acute (5) Acute kidney injury superimposed on CKD: Status: Acute (6) Right hemiparesis: Status: Inactive (7) Dementia: Status: Acute (8) Obstructive sleep apnea: Status: Acute Plan Assessment: 79-year-old lady admitted with acute hypoxic respiratory failure requiring ventilatory support, likely secondary to acute on chronic combined systolic and diastolic congestive heart failure, improved with diuresis, extubated on 01/22/2025. Plan: Neuro: Lethargy likely related to underlying metabolic encephalopathy, expect to improve with resolution of uremia. Cardiac: Acute on chronic combined systolic and diastolic congestive heart failure improved with diuresis. Cardiology service care appreciated. On/off Cardene drip. Pulmonary: Acute hypoxic respiratory failure secondary to exacerbation of underlying congestive heart failure initially requiring ventilatory support, extubated on 01/22/2025. Concern for low volume silent recurrent aspirations with underlying cephalopathy. Renal: Acute renal failure on background of chronic renal disease, secondary to exacerbation of underlying congestive heart failure, worsening. Non oliguric. Still with worsening uremia, though creatinine is improving. Nephrology service care appreciated. Continue to monitor renal indices and urine output. Will proceed with IV fluid challenge as suggested by nephrology service. Endo: No acute issues. Underlying diabetes mellitus on subcutaneous insulin. GI: No acute issues. ID: No acute issues Heme/Onc: Continue to monitor off antibiotics. Psych: No acute issues. Miscellaneous: No acute issues. Prophylaxis: Heparin Diet: Tube feeds Critical care time spent: 45 minutes Quality Stroke Does the patient have a stroke diagnosis?: No VTE Prior VTE?: No VTE Risk Level:: Medical - moderate - high VTE Device Contraindication: N/A - Device Ordered VTE Drug Contraindication: N/A - Med Ordered
--- NOTE | 2025-01-26 12:31 | PM.PNNEP ---
Subjective Subjective Date of Service: 01/26/25 Interval history: No events overnight. Remains significantly encephalopathic. All recent data reviewed Physical Exam Vital Signs: Vital Signs: Last Vital Signs Temp 99.3 F 01/26/25 12:00 Pulse 87 01/26/25 12:00 Resp 24 H 01/26/25 12:00 BP 158/69 H 01/26/25 12:00 Pulse Ox 94 01/26/25 12:00 O2 Del Method Nasal Cannula 01/26/25 12:00 O2 Flow Rate 2 01/26/25 12:00 FiO2 35 01/22/25 12:00 BMI result Body Mass Index 24.9 Const: General: no acute distress Eyes: EOM: EOMs intact bilaterally Neck: Neck: Yes supple Resp: Auscultation: diminished lung sounds Cardio: Rate: regular rate GI: Palpation (GI): Soft to palpation Neuro: General: moves all extremities Objective Data Labs 01/26/25 05:26 01/26/25 05:26 Labs: Laboratory Results - last 24 hr 01/25/25 01/25/25 01/26/25 18:00 23:30 05:26 WBC 13.4 H RBC 3.04 L Hgb 9.1 L Hct 27.9 L MCV 91.8 MCH 29.9 MCHC 32.6 RDW 14.2 Plt Count 262 MPV 11.2 Immature Gran % (Auto) 2.7 H Neut % (Auto) 83.4 H Lymph % (Auto) 4.1 L [place] % (Auto) 8.8 Eos % (Auto) 0.3 Baso % (Auto) 0.7 Lymph # (Auto) 0.6 L [place] # (Auto) 1.2 Eos # (Auto) 0.0 Baso # (Auto) 0.1 Abs Immat Gran (auto) 0.36 H Absolute Neuts (auto) 11.2 H Absolute Nucleated RBC 0.000 Nucleated RBC % (auto) 0.0 Smear Tech's Comments VERIFIED VBG pH VBG pCO2 VBG pO2 VBG HCO3 VBG O2 Saturation VBG Base Excess Sodium 150 H Potassium 3.6 Chloride 115 H Carbon Dioxide 19 L Anion Gap 20 BUN 107 H Creatinine 3.30 H Estim Creat Clear Calc 13.9 Estimated GFR 13 POC Glucose 223 H 254 H Random Glucose 315 H Calcium 9.7 Phosphorus 3.9 Magnesium 2.4 Albumin 3.5 01/26/25 01/26/25 05:29 11:17 WBC RBC Hgb Hct MCV MCH MCHC RDW Plt Count MPV Immature Gran % (Auto) Neut % (Auto) Lymph % (Auto) [place] % (Auto) Eos % (Auto) Baso % (Auto) Lymph # (Auto) [place] # (Auto) Eos # (Auto) Baso # (Auto) Abs Immat Gran (auto) Absolute Neuts (auto) Absolute Nucleated RBC Nucleated RBC % (auto) Smear Tech's Comments VBG pH 7.61 H* VBG pCO2 21 VBG pO2 79 VBG HCO3 21 L VBG O2 Saturation 95.0 VBG Base Excess 1.5 Sodium Potassium Chloride Carbon Dioxide Anion Gap BUN Creatinine Estim Creat Clear Calc Estimated GFR POC Glucose 317 H Random Glucose Calcium Phosphorus Magnesium Albumin Microbiology Microbiology Results: Microbiology 01/19/25 07:38 Blood - Venous Blood Culture - Final No growth after 5 days. 01/19/25 07:14 Blood - Venous Blood Culture - Final No growth after 5 days. Procedures Date of Service Date of Service: 01/26/25 Assessment & Plan Assessment and plan (1) Acute kidney injury superimposed on CKD: Status: Acute (2) Hypernatremia: Status: Acute Plan 79-year-old woman with acute kidney injury superimposed on chronic kidney disease due to tubular injury-improving Urine sediments bland therefore glomerular nephritis or interstitial disease seem less likely. Serum creatinine better; UO fair; Free water replacement; Continue current medication regimen No indication for renal replacement; Labs AM; Shall F/U closely Progress Note: Quality Stroke Does the patient have a stroke diagnosis?: No
--- NOTE | 2025-01-26 13:32 | MHC.SLORD ---
Speech Language Pathology Order Status: Patient remains obtunded and unable to participate in bedside swallow eval. Patient w/ Keofeed tube in place. PRECINCT POLICE SERGEANT will continue to follow, plan to evaluate when patient becomes more awake/alert.
--- NOTE | 2025-01-26 14:26 | P.CDIM_ITS ---
PROVIDER RESPONSE TEXT: To clarify, the appropriate diagnosis supported by the clinical indicators: Hyperglycemia QUERY TEXT: PHYSICIAN'S DOCUMENTATION REQUEST Date of Query: 01/26/2025 12:59 PM EST Patient Name: Radha Wright Admit Date: 01/19/2025 Dear Taco Cobb MD, A review of the medical record indicates additional documentation may be needed. Please review below and update the documentation accordingly. Clinical Indicators: LABS: POC glucose 317 H ICU progress note 01/26 - Underlying diabetes mellitus on subcutaneous insulin. Based on the above, is there a diagnosis that correlates with these lab findings: Hyperglycemia Labs indicate a diagnosis of (please specify) Other (explain) Clinically unable to determine (explain) Thank you, Claire Vo, CCS, CDIS Use of terms such as suspected, likely, concern for, or probable (associated with a specific diagnosi s that is being evaluated, monitored, or treated as if it exists) are acceptable and can be coded in the inpatient se tting, when documented at the time of discharge. Please use your independent medical judgment in providing your response. THIS QUERY IS PART OF THE PERMANENT MEDICAL RECORD
--- NOTE | 2025-01-26 14:48 | MHC.CM.PN ---
PT REMAINS IN ICU, ON/OFF CARDENE GTT. CM CONTINUES TO FOLLOW AND SEND UPDATES TO SNF.
[2025-01-26 17:56] LABS: Glucose, Whole Blood 325 mg/dL (60-115)
--- NOTE | 2025-01-26 18:58 | PC.NURSE ---
Assumed care at 0700. Nicardipine gtt titrated per JAN. Pt. remains afib on tele, HR 70s-100s. Pt. tolerating TF via Keofeed- 65cm @ right nare- see TF assessment. Nunez in place draining clear yellow urine, 30-50cc/hr. Family at bedside, updated by this RN and MD. Q2 oral care and repositioning performed, hovermat system in place. Plan of care ongoing.
[2025-01-26 23:32] LABS: Glucose, Whole Blood 327 mg/dL (60-115)
[2025-01-27] VITALS (40 sets, daily range): BP systolic 131–165; BP diastolic 44–70; PULSE 81–111; RESP 25–43; TEMP 37.5–38.3; O2SAT 88–96; BMI 23.7
[2025-01-27] MEDS: niCARdipine HCL 25 MG in 0.9 % Sodium Chloride 240 ML 75 MG IVCONT ×2 (03:54→07:28)
[2025-01-27] MEDS: Dextrose 5 % 1,000 ML 100 ML IVCONT (05:09)
[2025-01-27] MEDS: Heparin Sodium,Porcine 5,000 UNIT/ML VIAL 5000 UNIT SUBCUT ×3 (05:25→20:51)
[2025-01-27] MEDS: Levothyroxine Sodium 125 MCG TABLET PO (05:25)
[2025-01-27 05:38] LABS: VBG Base Excess 0.8 mmol/L; VBG HCO3 20 mmol/L (22-26); VBG pCO2 20 mmHg; VBG pH 7.61 (7.32-7.43); VBG pO2 51 mmHg
[2025-01-27 06:07] LABS: Glucose, Whole Blood 391 mg/dL (60-115)
[2025-01-27] MEDS: Insulin Lispro 100 UNIT/ML 3 ML VIAL SUBCUT ×4 (06:14→18:23)
[2025-01-27 06:20] LABS: Albumin Level 3.1 g/dL (3.5-5.0); Anion Gap 19 (12-20); Blood Urea Nitrogen 102 mg/dL (9-16); Carbon Dioxide 17 mmol/L (22-29); Chloride 108 mmol/L (96-108); Creatinine Clr Calc Pharmacy 14.2; Estimated Glomerular Filt Rate 14; Glucose Random 415 mg/dL (60-115); Magnesium 2.1 mg/dL (1.6-2.6); Phosphorus 2.9 mg/dL (2.7-4.5); Potassium 3.5 mmol/L (3.3-5.1); Sodium 140 mmol/L (135-145)
--- NOTE | 2025-01-27 06:31 | PC.NURSE ---
Assumed care 1900 - pt obtunded, see shift assessment. SpO2 86-89% on 2L NC - increased to 4L NC to maintain spO2 >90%. HABITAT CONSERVATION PLANNER notified, order to pause tube feeds and put pt on cpap at 0000. Tube feeds off for 30 min prior to cpap, when cpap placed, pt vomited a small amount?of chau emesis - cpap off and placed back on 2L NC maintaining spO2>90%. HABITAT CONSERVATION PLANNER aware. - order to hold tube feeds for 2 hrs. On nicardipine gtt maintaining systolic BP 150-160s - see emar?for titrations. HR 90-130s afib on tele. Oral care provided, CHG bath given, and repositioned Q2H. Safety measures in place.?
[2025-01-27] MEDS: Albumin Human 25 % 100 ML IV ×2 (07:28→13:47)
[2025-01-27] MEDS: Potassium Chloride Packet 20 MEQ PACKET PO (07:33)
[2025-01-27] MEDS: 0.9 % Sodium Chloride Flush 3 ML SYRINGE IVFLUSH ×3 (07:34→22:55)
[2025-01-27 07:48] LABS: Basophils Absolute Auto 0.1 X10*3/uL (0.0-0.2); Basophils Percent Auto 0.5 % (0-2); Eosinophils Percent Auto 0.1 % (0-4); Hematocrit 25.3 % (37.0-47.0); Hemoglobin 8.4 g/dl (12.0-16.0); Imm Gran Abs Auto 0.35 X10*3/uL (0.00-0.03); Imm Gran Pct Auto 2.6 % (0.0-0.4); Lymphocytes Absolute Auto 0.5 X10*3/uL (1.2-4.9); Lymphocytes Percent Auto 3.8 % (20-40); Mean Corpuscular HGB Conc 33.2 g/dl (31.0-35.0); Mean Corpuscular Hemoglobin 29.6 pg (27.0-33.0); Mean Corpuscular Volume 89.1 fL (80.0-98.0); Monocytes Absolute Auto 1.1 X10*3/uL (0.1-1.2); Monocytes Percent Auto 8.3 % (2-11); NRBC Pct Auto 0.1 /100WBC (0.0-0.2); Neutrophils Absolute Auto 11.4 x10*3/uL (2.0-8.3); Neutrophils Percent Auto 84.7 % (45-73); Platelet Count 272 X10*3/uL (160-400); Red Blood Count 2.84 X10*6/uL (4.20-5.50); White Blood Count 13.5 X10*3/uL (4.8-10.8)
[2025-01-27] MEDS: hydrALAZINE HCl 50 MG TABLET PO ×2 (08:09→16:30)
[2025-01-27] MEDS: Labetalol HCL 100 MG TABLET PO (08:09)
[2025-01-27] MEDS: amLODIPine Besylate 10 MG TABLET PO (08:10)
[2025-01-27 09:04] LABS: MANUAL DIFF FLAG NO
[2025-01-27] MEDS: Dextrose 5 % 1,000 ML 50 ML IVCONT (09:44)
--- NOTE | 2025-01-27 10:28 | P.PNCC_ITS ---
Subjective Subjective Date of Service: 01/27/25 Interval History: 79-year-old lady with underlying history of hypertension, hyperlipidemia, diabetes mellitus, CAD, CVA with right-sided hemiparesis, hypothyroidism, LUANA admitted on 01/19/2025 with acute hypoxic respiratory failure and alteration of mental status requiring intubation and ventilatory support. Patient treated for pulmonary edema with diuresis with significant improvement, and also empiric antibiotics for overlying pneumonia. Extubated uneventfully on 01/22/2025. No events overnight. Remains significantly encephalopathic. Creatinine improved close to baseline after fluid challenge, however uremia is essentially the same and with worsening oxygenation and decreasing bicarbonate. Critical Care Time (minutes): 45 Physical Exam 2 Vital Signs: Vital Signs: Last Vital Signs Temp 100.8 F H 01/27/25 10:00 Pulse 82 01/27/25 10:12 Resp 25 H 01/27/25 10:00 BP 136/49 L 01/27/25 10:12 Pulse Ox 91 L 01/27/25 10:00 O2 Del Method Oxymask 01/27/25 10:00 O2 Flow Rate 8 01/27/25 10:00 FiO2 35 01/22/25 12:00 BMI result Body Mass Index 23.7 Const: General: no acute distress and lethargic Orientation/consciousness: lethargic HEENT: Head: Yes atraumatic Eyes: Sclerae: sclerae normal EOM: EOMs intact bilaterally Neck: Neck: Yes supple Lymphatic: no lymphadenopathy noted Resp: Effort & Inspection: normal respiratory effort and no use of accessory muscles Auscultation: crackles (Bilateral) Cardio: Rate: regular rate Rhythm: regular rhythm Heart sounds: no gallops, no murmurs and no rubs Skin: General skin exam: other ( warm) Extrem: General: No clubbing, No cyanosis and Yes edema (1+ bilateral) Objective Data Labs 01/27/25 07:30 01/27/25 05:32 Labs: Laboratory Results - last 24 hr 01/26/25 01/26/25 01/26/25 11:17 17:53 23:22 WBC RBC Hgb Hct MCV MCH MCHC RDW Plt Count MPV Immature Gran % (Auto) Neut % (Auto) Lymph % (Auto) [place] % (Auto) Eos % (Auto) Baso % (Auto) Lymph # (Auto) [place] # (Auto) Eos # (Auto) Baso # (Auto) Abs Immat Gran (auto) Absolute Neuts (auto) Absolute Nucleated RBC Nucleated RBC % (auto) VBG pH VBG pCO2 VBG pO2 VBG HCO3 VBG O2 Saturation VBG Base Excess Sodium Potassium Chloride Carbon Dioxide Anion Gap BUN Creatinine Estim Creat Clear Calc Estimated GFR POC Glucose 317 H 325 H 327 H Random Glucose Calcium Phosphorus Magnesium Albumin 01/27/25 01/27/25 01/27/25 05:32 05:35 05:59 WBC RBC Hgb Hct MCV MCH MCHC RDW Plt Count MPV Immature Gran % (Auto) Neut % (Auto) Lymph % (Auto) [place] % (Auto) Eos % (Auto) Baso % (Auto) Lymph # (Auto) [place] # (Auto) Eos # (Auto) Baso # (Auto) Abs Immat Gran (auto) Absolute Neuts (auto) Absolute Nucleated RBC Nucleated RBC % (auto) VBG pH 7.61 H* VBG pCO2 20 VBG pO2 51 VBG HCO3 20 L VBG O2 Saturation 84.0 VBG Base Excess 0.8 Sodium 140 Potassium 3.5 Chloride 108 Carbon Dioxide 17 L Anion Gap 19 BUN 102 H Creatinine 3.24 H Estim Creat Clear Calc 14.2 Estimated GFR 14 POC Glucose 391 H* Random Glucose 415 H* Calcium 9.0 D Phosphorus 2.9 Magnesium 2.1 Albumin 3.1 L 01/27/25 07:30 WBC 13.5 H RBC 2.84 L Hgb 8.4 L Hct 25.3 L MCV 89.1 MCH 29.6 MCHC 33.2 RDW 14.0 Plt Count 272 MPV 11.0 Immature Gran % (Auto) 2.6 H Neut % (Auto) 84.7 H Lymph % (Auto) 3.8 L [place] % (Auto) 8.3 Eos % (Auto) 0.1 Baso % (Auto) 0.5 Lymph # (Auto) 0.5 L [place] # (Auto) 1.1 Eos # (Auto) 0.0 Baso # (Auto) 0.1 Abs Immat Gran (auto) 0.35 H Absolute Neuts (auto) 11.4 H Absolute Nucleated RBC 0.020 H Nucleated RBC % (auto) 0.1 VBG pH VBG pCO2 VBG pO2 VBG HCO3 VBG O2 Saturation VBG Base Excess Sodium Potassium Chloride Carbon Dioxide Anion Gap BUN Creatinine Estim Creat Clear Calc Estimated GFR POC Glucose Random Glucose Calcium Phosphorus Magnesium Albumin Microbiology Microbiology Results: Microbiology 01/19/25 07:38 Blood - Venous Blood Culture - Final No growth after 5 days. 01/19/25 07:14 Blood - Venous Blood Culture - Final No growth after 5 days. Progress Note: A&P Assessment and plan (1) Acute combined systolic and diastolic congestive heart failure: Status: Acute (2) Diabetes: Status: Acute (3) Hypothyroid: Status: Acute (4) CKD (chronic kidney disease): Status: Acute (5) Acute kidney injury superimposed on CKD: Status: Acute (6) Right hemiparesis: Status: Inactive (7) Dementia: Status: Acute (8) Acute hypoxic respiratory failure: Status: Acute Plan Assessment: 79-year-old lady admitted with acute hypoxic respiratory failure requiring ventilatory support, likely secondary to acute on chronic combined systolic and diastolic congestive heart failure, improved with diuresis, extubated on 01/22/2025. Plan: Neuro: Lethargy likely related to underlying metabolic encephalopathy, expect to improve with resolution of uremia. Cardiac: Acute on chronic combined systolic and diastolic congestive heart failure improved with diuresis. Cardiology service care appreciated. On/off Cardene drip. Pulmonary: Acute hypoxic respiratory failure secondary to exacerbation of underlying congestive heart failure initially requiring ventilatory support, extubated on 01/22/2025. Concern for low volume silent recurrent aspirations with underlying cephalopathy. Renal: Acute renal failure on background of chronic renal disease, secondary to exacerbation of underlying congestive heart failure, worsening. Non oliguric. Uremia is stabilizing, however no significant improvement, creatinine improving to baseline, however with decreasing bicarbonate on tapering off the urine output. Nephrology service care appreciated. Continue to monitor renal indices and urine output. Will likely require hemodialysis. Endo: No acute issues. Underlying diabetes mellitus on subcutaneous insulin. GI: No acute issues. ID: No acute issues Heme/Onc: Continue to monitor off antibiotics. Psych: No acute issues. Miscellaneous: No acute issues. Prophylaxis: Heparin Diet: Tube feeds Critical care time spent: 45 minutes Quality Stroke Does the patient have a stroke diagnosis?: No VTE Prior VTE?: No VTE Risk Level:: Medical - moderate - high VTE Device Contraindication: N/A - Device Ordered VTE Drug Contraindication: N/A - Med Ordered
[2025-01-27 11:41] LABS: Glucose, Whole Blood 322 mg/dL (60-115)
[2025-01-27 12:13] LABS: Venous Blood Gas Refer to POC result
--- NOTE | 2025-01-27 12:36 | HO.HCP_ITS ---
Health Care Proxy Invocation Health Care Proxy Declaration: I, Taco Cobb , on the date cited below, have determined that, ____Radha Wright , lacks the capacity to make or communicate, informed health care decision. This determination is made in accordance with accepted standards of medical judgment and pursuant to [place] 201[place], the [facility] Care Proxy Law. The cause, nature, extent and probable duration of the patient's inapacity are described below: Cause: Uremia Nature: Organic Extent: Severe Probable Duration of Patient's Incapacity: Unclear
--- NOTE | 2025-01-27 12:36 | W.PM.CCHP ---
Procedures Date of Service Date of Service: 01/27/25 Central Line Placement Right IJ: Central Line Comments: After obtaining informed consent right internal jugular triple-lumen hemodialysis catheter placed for hemodialysis under ultrasound guidance and usual sterile conditions with no immediate complications. Chest x-ray for line position is pending.
[2025-01-27] MEDS: niCARdipine HCL 25 MG in 0.9 % Sodium Chloride 240 ML IVCONT (14:00)
--- NOTE | 2025-01-27 18:20 | PC.RT ---
Nurse noted desaturation on 15 lpm oxymask, RT called to bedside. Pt showing mild in wob and inc rr as well as spo2 86% was placed on cpap 6-16 to inc spo2 as well as ease wob. 10 lpm was titrated into the unit via flowmeter. Pt spo2 cont < 85% and wob evident with rr 35. RT placed pt on V60 in cpap mode with 8cmh20 and 45% fio2. Pt steph, rr dec < 30, wob eased. MD notified and nurse aware.
[2025-01-27 18:23] LABS: Glucose, Whole Blood 302 mg/dL (60-115)
--- NOTE | 2025-01-27 18:28 | PC.NURSE ---
Assumed care at 0700. Pt had increasing o2 needs throughout the shift. Pt was tachypnic, belly breathing, RR in 30s. Pt was slightly febrile, ice?packs used to manage temperature. Dialysis catheter placed in R IJ; dialysis session removed 2000mL. Pt producing 30-50 mL urine per hour. TF paused and water flush held at 1740 when pt was placed on cpap.
[2025-01-27 19:44] LABS: MANUAL DIFF FLAG NO
[2025-01-27 19:47] LABS: Basophils Absolute Auto 0.1 X10*3/uL (0.0-0.2); Basophils Percent Auto 0.4 % (0-2); Eosinophils Percent Auto 0.2 % (0-4); Hematocrit 24.3 % (37.0-47.0); Hemoglobin 8.2 g/dl (12.0-16.0); Imm Gran Abs Auto 0.62 X10*3/uL (0.00-0.03); Imm Gran Pct Auto 3.4 % (0.0-0.4); Lymphocytes Absolute Auto 0.7 X10*3/uL (1.2-4.9); Lymphocytes Percent Auto 3.8 % (20-40); Mean Corpuscular HGB Conc 33.7 g/dl (31.0-35.0); Mean Corpuscular Hemoglobin 29.8 pg (27.0-33.0); Mean Corpuscular Volume 88.4 fL (80.0-98.0); Mean Platelet Volume 10.8 fL (9.4-12.3); Monocytes Absolute Auto 1.3 X10*3/uL (0.1-1.2); Monocytes Percent Auto 7.3 % (2-11); NRBC Pct Auto 0.1 /100WBC (0.0-0.2); Neutrophils Absolute Auto 15.6 x10*3/uL (2.0-8.3); Neutrophils Percent Auto 84.9 % (45-73); Platelet Count 294 X10*3/uL (160-400); Red Blood Count 2.75 X10*6/uL (4.20-5.50); Red Cell Distribution Width 14.1 % (11.0-16.0); White Blood Count 18.4 X10*3/uL (4.8-10.8)
[2025-01-27 19:53] LABS: VBG Base Excess 9.7 mmol/L; VBG HCO3 29 mmol/L (22-26); VBG pCO2 25 mmHg; VBG pH 7.67 (7.32-7.43); VBG pO2 68 mmHg
[2025-01-27 19:56] LABS: Venous Blood Gas Refer to POC result
[2025-01-27 20:04] LABS: Anion Gap 16 (12-20); Blood Urea Nitrogen 69 mg/dL (9-16); Calcium 9.3 mg/dL (8.4-10.2); Carbon Dioxide 21 mmol/L (22-29); Chloride 106 mmol/L (96-108); Creatinine Clr Calc Pharmacy 20.9; Estimated Glomerular Filt Rate 22; Glucose Random 288 mg/dL (60-115); Phosphorus 2.7 mg/dL (2.7-4.5); Potassium 3.4 mmol/L (3.3-5.1); Sodium 140 mmol/L (135-145)
[2025-01-27] MEDS: Potassium Chloride/H20 10 MEQ/100 ML PIGGYBACK 100 MEQ IV ×2 (20:36→21:29)
[2025-01-27 22:14] LABS: VBG Base Excess 9.1 mmol/L; VBG HCO3 29 mmol/L (22-26); VBG pCO2 28 mmHg; VBG pH 7.63 (7.32-7.43); VBG pO2 96 mmHg
[2025-01-27 22:16] LABS: Venous Blood Gas Refer to POC result
[2025-01-27] MEDS: Ampicillin Sodium/Sulbactam Na 3 GM in 0.9 % Sodium Chloride 100 ML IV (22:54)
[2025-01-28] VITALS (49 sets, daily range): BP systolic 118–176; BP diastolic 53–81; PULSE 86–114; RESP 22–38; TEMP 37.2–37.9; O2SAT 65–100; BMI 23.1
[2025-01-28 00:08] LABS: Glucose, Whole Blood 293 mg/dL (60-115)
[2025-01-28] MEDS: Insulin Lispro 100 UNIT/ML 3 ML VIAL SUBCUT ×4 (00:12→17:29)
[2025-01-28] MEDS: fentaNYL citrate/PF 100 MCG/2 ML VIAL 25 MCG IVPUSH ×2 (04:22→20:17)
[2025-01-28 04:37] LABS: Basophils Absolute Auto 0.1 X10*3/uL (0.0-0.2); Basophils Percent Auto 0.4 % (0-2); Eosinophils Absolute Auto 0.1 X10*3/uL (0.0-0.4); Eosinophils Percent Auto 0.4 % (0-4); Hematocrit 23.9 % (37.0-47.0); Hemoglobin 8.2 g/dl (12.0-16.0); Imm Gran Abs Auto 0.39 X10*3/uL (0.00-0.03); Imm Gran Pct Auto 2.4 % (0.0-0.4); Lymphocytes Absolute Auto 0.7 X10*3/uL (1.2-4.9); Lymphocytes Percent Auto 4.3 % (20-40); MANUAL DIFF FLAG NO; Mean Corpuscular HGB Conc 34.3 g/dl (31.0-35.0); Mean Corpuscular Volume 87.5 fL (80.0-98.0); Mean Platelet Volume 10.7 fL (9.4-12.3); Monocytes Absolute Auto 1.2 X10*3/uL (0.1-1.2); Monocytes Percent Auto 7.5 % (2-11); Neutrophils Absolute Auto 13.6 x10*3/uL (2.0-8.3); Platelet Count 261 X10*3/uL (160-400); Red Blood Count 2.73 X10*6/uL (4.20-5.50); Red Cell Distribution Width 13.9 % (11.0-16.0)
[2025-01-28 04:38] LABS: VBG Base Excess 2.6 mmol/L; VBG HCO3 24 mmol/L (22-26); VBG pCO2 29 mmHg; VBG pH 7.53 (7.32-7.43); VBG pO2 45 mmHg
[2025-01-28 04:54] LABS: Albumin Level 3.5 g/dL (3.5-5.0); Anion Gap 18 (12-20); Blood Urea Nitrogen 74 mg/dL (9-16); Calcium 9.3 mg/dL (8.4-10.2); Carbon Dioxide 21 mmol/L (22-29); Chloride 107 mmol/L (96-108); Creatinine Clr Calc Pharmacy 18.2; Estimated Glomerular Filt Rate 18; Glucose Random 255 mg/dL (60-115); Magnesium 2.1 mg/dL (1.6-2.6); Phosphorus 2.8 mg/dL (2.7-4.5); Potassium 3.8 mmol/L (3.3-5.1); Sodium 142 mmol/L (135-145)
[2025-01-28] MEDS: Heparin Sodium,Porcine 5,000 UNIT/ML VIAL 5000 UNIT SUBCUT ×3 (05:57→20:49)
[2025-01-28 05:58] LABS: Glucose, Whole Blood 245 mg/dL (60-115)
[2025-01-28] MEDS: Ampicillin Sodium/Sulbactam Na 3 GM in 0.9 % Sodium Chloride 100 ML IV ×2 (06:28→17:30)
--- NOTE | 2025-01-28 06:37 | PC.NURSE ---
Assumed care at 1900 - pt obtunded. Switched from cpap to bipap at 2000 for increased work of breathing - see bipap assessment. Cxr ordered and completed. Tube feeds continue to be on hold. Titrated off nicardipine gtt - systolic BPs 150-160s. BEHAVIORAL INTERVENTIONIST aware.?? 0400 - Pt with increased work of breathing, tachypneic in 30s. BEHAVIORAL INTERVENTIONIST notified. Fentanyl 25 mcg ordered and administered with little effect on work of breathing. Repositioned Q2H, safety measures in place.?
[2025-01-28] MEDS: 0.9 % Sodium Chloride Flush 3 ML SYRINGE IVFLUSH ×2 (07:30→17:28)
[2025-01-28 07:54] LABS: Venous Blood Gas Refer to POC result
[2025-01-28] MEDS: niCARdipine HCL 25 MG in 0.9 % Sodium Chloride 240 ML 50 MG IVCONT ×3 (08:49→19:15)
--- NOTE | 2025-01-28 09:46 | PM.CCPN ---
Subjective Subjective Date of Service: 01/28/25 Interval History: 79-year-old lady with underlying history of hypertension, hyperlipidemia, diabetes mellitus, CAD, CVA with right-sided hemiparesis, hypothyroidism, LUANA admitted on 01/19/2025 with acute hypoxic respiratory failure and alteration of mental status requiring intubation and ventilatory support. Patient treated for pulmonary edema with diuresis with significant improvement, and also empiric antibiotics for overlying pneumonia. Extubated uneventfully on 01/22/2025. Start on hemodialysis 01/27/2025. No events overnight. Respiratory status is improving. Critical Care Time (minutes): 45 Physical Exam Vital Signs: Vital Signs: Last Vital Signs Temp 100.2 F 01/28/25 09:00 Pulse 86 01/28/25 09:00 Resp 22 H 01/28/25 09:00 BP 160/57 H 01/28/25 09:00 Pulse Ox 94 01/28/25 09:00 O2 Del Method BiPAP 01/28/25 09:00 O2 Flow Rate 12 01/27/25 18:00 FiO2 40 01/28/25 09:00 BMI result Body Mass Index 23.1 Const: General: no acute distress and lethargic (arousable) Orientation/consciousness: lethargic (arousable) HEENT: Head: Yes atraumatic Eyes: General: appearance normal, both eyes and all related structures Sclerae: sclerae normal EOM: EOMs intact bilaterally Neck: Neck: Yes supple Lymphatic: no lymphadenopathy noted Resp: Effort & Inspection: normal respiratory effort and no use of accessory muscles Auscultation: crackles (Mild bilateral) Cardio: Rate: regular rate Rhythm: regular rhythm Heart sounds: no gallops, no murmurs and no rubs Skin: General skin exam: other ( warm) Extrem: General: No clubbing, No cyanosis and Yes edema (1+ bilateral) Objective Data Labs 01/28/25 04:30 01/28/25 04:30 Labs: Laboratory Results - last 24 hr 01/27/25 01/27/25 01/27/25 11:29 18:19 19:38 WBC 18.4 H RBC 2.75 L Hgb 8.2 L Hct 24.3 L MCV 88.4 MCH 29.8 MCHC 33.7 RDW 14.1 Plt Count 294 MPV 10.8 Immature Gran % (Auto) 3.4 H Neut % (Auto) 84.9 H Lymph % (Auto) 3.8 L [place] % (Auto) 7.3 Eos % (Auto) 0.2 Baso % (Auto) 0.4 Lymph # (Auto) 0.7 L [place] # (Auto) 1.3 H Eos # (Auto) 0.0 Baso # (Auto) 0.1 Abs Immat Gran (auto) 0.62 H Absolute Neuts (auto) 15.6 H Absolute Nucleated RBC 0.020 H Nucleated RBC % (auto) 0.1 VBG pH VBG pCO2 VBG pO2 VBG HCO3 VBG O2 Saturation VBG Base Excess Sodium 140 Potassium 3.4 Chloride 106 Carbon Dioxide 21 L Anion Gap 16 BUN 69 H Creatinine 2.20 H Estim Creat Clear Calc 20.9 Estimated GFR 22 POC Glucose 322 H 302 H Random Glucose 288 H Lactic Acid Calcium 9.3 Phosphorus 2.7 Magnesium 2.0 Albumin 01/27/25 01/27/25 01/27/25 19:44 21:56 22:07 WBC RBC Hgb Hct MCV MCH MCHC RDW Plt Count MPV Immature Gran % (Auto) Neut % (Auto) Lymph % (Auto) [place] % (Auto) Eos % (Auto) Baso % (Auto) Lymph # (Auto) [place] # (Auto) Eos # (Auto) Baso # (Auto) Abs Immat Gran (auto) Absolute Neuts (auto) Absolute Nucleated RBC Nucleated RBC % (auto) VBG pH 7.67 H* 7.63 H* VBG pCO2 25 28 VBG pO2 68 96 VBG HCO3 29 H 29 H VBG O2 Saturation 96.0 98.0 VBG Base Excess 9.7 9.1 Sodium Potassium Chloride Carbon Dioxide Anion Gap BUN Creatinine Estim Creat Clear Calc Estimated GFR POC Glucose Random Glucose Lactic Acid 1.0 Calcium Phosphorus Magnesium Albumin 01/28/25 01/28/25 01/28/25 00:04 04:30 04:33 WBC 16.0 H RBC 2.73 L Hgb 8.2 L Hct 23.9 L MCV 87.5 MCH 30.0 MCHC 34.3 RDW 13.9 Plt Count 261 MPV 10.7 Immature Gran % (Auto) 2.4 H Neut % (Auto) 85.0 H Lymph % (Auto) 4.3 L [place] % (Auto) 7.5 Eos % (Auto) 0.4 Baso % (Auto) 0.4 Lymph # (Auto) 0.7 L [place] # (Auto) 1.2 Eos # (Auto) 0.1 Baso # (Auto) 0.1 Abs Immat Gran (auto) 0.39 H Absolute Neuts (auto) 13.6 H Absolute Nucleated RBC 0.000 Nucleated RBC % (auto) 0.0 VBG pH 7.53 H VBG pCO2 29 VBG pO2 45 VBG HCO3 24 VBG O2 Saturation 72.0 VBG Base Excess 2.6 Sodium 142 Potassium 3.8 Chloride 107 Carbon Dioxide 21 L Anion Gap 18 BUN 74 H Creatinine 2.52 H Estim Creat Clear Calc 18.2 Estimated GFR 18 POC Glucose 293 H Random Glucose 255 H Lactic Acid Calcium 9.3 Phosphorus 2.8 Magnesium 2.1 Albumin 3.5 01/28/25 05:51 WBC RBC Hgb Hct MCV MCH MCHC RDW Plt Count MPV Immature Gran % (Auto) Neut % (Auto) Lymph % (Auto) [place] % (Auto) Eos % (Auto) Baso % (Auto) Lymph # (Auto) [place] # (Auto) Eos # (Auto) Baso # (Auto) Abs Immat Gran (auto) Absolute Neuts (auto) Absolute Nucleated RBC Nucleated RBC % (auto) VBG pH VBG pCO2 VBG pO2 VBG HCO3 VBG O2 Saturation VBG Base Excess Sodium Potassium Chloride Carbon Dioxide Anion Gap BUN Creatinine Estim Creat Clear Calc Estimated GFR POC Glucose 245 H Random Glucose Lactic Acid Calcium Phosphorus Magnesium Albumin Microbiology Microbiology Results: Microbiology 01/19/25 07:38 Blood - Venous Blood Culture - Final No growth after 5 days. 01/19/25 07:14 Blood - Venous Blood Culture - Final No growth after 5 days. Progress Note: A&P Assessment and plan (1) Acute combined systolic and diastolic congestive heart failure: Status: Acute (2) CAD (coronary artery disease): Status: Acute (3) Diabetes: Status: Acute (4) Hypothyroid: Status: Acute (5) Acute kidney injury superimposed on CKD: Status: Acute (6) Right hemiparesis: Status: Inactive (7) Mild cognitive impairment: Status: Acute (8) Acute hypoxic respiratory failure: Status: Acute Plan Assessment: 79-year-old lady admitted with acute hypoxic respiratory failure requiring ventilatory support, likely secondary to acute on chronic combined systolic and diastolic congestive heart failure, improved with diuresis, extubated on 01/22/2025. Plan: Neuro: Lethargy likely related to underlying metabolic encephalopathy, expect to improve with resolution of uremia. Cardiac: Acute on chronic combined systolic and diastolic congestive heart failure improved with diuresis. Cardiology service care appreciated. Pulmonary: Acute hypoxic respiratory failure secondary to exacerbation of underlying congestive heart failure initially requiring ventilatory support, extubated on 01/22/2025. Concern for low volume silent recurrent aspirations with underlying cephalopathy. Renal: Acute renal failure on background of chronic renal disease, secondary to exacerbation of underlying congestive heart failure, started on hemodialysis. Nephrology service care appreciated. Continue to monitor renal indices and urine output. Endo: No acute issues. Underlying diabetes mellitus on subcutaneous insulin. GI: No acute issues. ID: No acute issues Heme/Onc: Empiric Unasyn for likely underlying pulmonary aspiration. Psych: No acute issues. Miscellaneous: No acute issues. Prophylaxis: Heparin Diet: Tube feeds Critical care time spent: 45 minutes Quality Stroke Does the patient have a stroke diagnosis?: No VTE Prior VTE?: No VTE Risk Level:: Medical - moderate - high VTE Device Contraindication: N/A - Device Ordered VTE Drug Contraindication: N/A - Med Ordered
--- NOTE | 2025-01-28 10:35 | PC.RT ---
RT called by nursing, pt noted mild inc wob on 7 lpm oxymask. barrier replaced and pt returned to Bipap without issue.
--- NOTE | 2025-01-28 12:04 | MHC.CM.PN ---
Patient remains in ICU. Copy of HCP obtained from [facility]. Continue to monitor for d/c needs.
[2025-01-28 12:11] LABS: Glucose, Whole Blood 322 mg/dL (60-115)
[2025-01-28 17:39] LABS: Glucose, Whole Blood 220 mg/dL (60-115)
--- NOTE | 2025-01-28 18:28 | PC.NURSE ---
Assumed care at 0700. Pts BPs were > 160 and pt was npo due to use of bipap so nicardipine drip was restarted. TF remained on hold. At 0930, pt was placed on oxymask. RR climbed to mid-30s and increased WOB noted. Pt placed back on bipap with good effect. Pt had elevated temps, ice packs used to ameliorate. Dialysis session removed 3.5L. Pt more rousable, able to answer yes/no questions and follow commands. For details regarding med administration, see JAN.
[2025-01-28 20:03] LABS: VBG Base Excess 13.5 mmol/L; VBG HCO3 32 mmol/L (22-26); VBG pCO2 24 mmHg; VBG pH 7.72 (7.32-7.43); VBG pO2 121 mmHg
[2025-01-28 20:10] LABS: Venous Blood Gas Refer to POC result
[2025-01-28 20:22] LABS: Anion Gap 16 (12-20); Blood Urea Nitrogen 45 mg/dL (9-16); Calcium 8.8 mg/dL (8.4-10.2); Carbon Dioxide 23 mmol/L (22-29); Chloride 106 mmol/L (96-108); Creatinine Clr Calc Pharmacy 25.8; Estimated Glomerular Filt Rate 27; Glucose Random 219 mg/dL (60-115); Magnesium 2.1 mg/dL (1.6-2.6); Phosphorus 2.3 mg/dL (2.7-4.5); Potassium 3.4 mmol/L (3.3-5.1); Sodium 142 mmol/L (135-145)
[2025-01-28] MEDS: levalbuterol HCL 1.25 MG/3 ML VIAL.NEB INHALE (20:43)
[2025-01-28] MEDS: Potassium Phosphate/NS 15 MMOL/250 ML PLAST..BAG 62.5 MMOL IV (20:50)
[2025-01-28 23:51] LABS: Glucose, Whole Blood 228 mg/dL (60-115)
[2025-01-28] MEDS: SODIUM CHLORIDE 0.9% IVCONT (23:57)
[2025-01-28] MEDS: NICARDIPINE HCL IVCONT (23:57)
[2025-01-29] VITALS (45 sets, daily range): BP systolic 99–169; BP diastolic 44–78; PULSE 69–111; RESP 17–36; TEMP 34.7–37.7; O2SAT 94–99; BMI 21.5
[2025-01-29] MEDS: Insulin Lispro 100 UNIT/ML 3 ML VIAL SUBCUT ×5 (00:01→23:53)
--- NOTE | 2025-01-29 03:32 | PC.NURSE ---
Upon initial assessment at 1900- family at bedside. Pt A&Ox1, lethargic, follows simple commands, R hemiparesis, nods head yes/no appropriately, minimal speech. Tmax 100 via core bladder probe. NSR/ST with PACs on tele, HR 80-100s. Cardene gtt ordered and titrated to maintain SBP < 160, switched to high concentration infusion d/t increased fluid volume. BiPAP in place, tolerating well, see assessment. Keofeed tube at 65 cm to R nare, remains NPO at this time. No BM. Nunez in place, UOP approx 20-30 mL/hr. Skin overall intact, foam dressing applied to coccyx for protection. Repositioned in bed q2hr with pillows. Bed locked in lowest position. See EMR/flowsheet for further details.
[2025-01-29 05:14] LABS: VBG Base Excess 3.4 mmol/L; VBG HCO3 25 mmol/L (22-26); VBG pCO2 31 mmHg; VBG pH 7.52 (7.32-7.43); VBG pO2 54 mmHg
[2025-01-29 05:29] LABS: Basophils Percent Auto 0.3 % (0-2); Eosinophils Absolute Auto 0.2 X10*3/uL (0.0-0.4); Eosinophils Percent Auto 1.3 % (0-4); Hematocrit 22.8 % (37.0-47.0); Hemoglobin 7.7 g/dl (12.0-16.0); Imm Gran Abs Auto 0.22 X10*3/uL (0.00-0.03); Imm Gran Pct Auto 1.7 % (0.0-0.4); Lymphocytes Absolute Auto 0.6 X10*3/uL (1.2-4.9); Lymphocytes Percent Auto 4.7 % (20-40); MANUAL DIFF FLAG NO; Mean Corpuscular HGB Conc 33.8 g/dl (31.0-35.0); Mean Corpuscular Volume 88.7 fL (80.0-98.0); Mean Platelet Volume 11.1 fL (9.4-12.3); Monocytes Percent Auto 7.9 % (2-11); Neutrophils Percent Auto 84.1 % (45-73); Platelet Count 293 X10*3/uL (160-400); Red Blood Count 2.57 X10*6/uL (4.20-5.50); White Blood Count 13.1 X10*3/uL (4.8-10.8)
[2025-01-29 05:47] LABS: Anion Gap 15 (12-20); Blood Urea Nitrogen 58 mg/dL (9-16); Carbon Dioxide 24 mmol/L (22-29); Chloride 107 mmol/L (96-108); Creatinine Clr Calc Pharmacy 20.1; Estimated Glomerular Filt Rate 21; Glucose Random 203 mg/dL (60-115); Magnesium 2.2 mg/dL (1.6-2.6); Phosphorus 4.1 mg/dL (2.7-4.5); Potassium 3.4 mmol/L (3.3-5.1); Sodium 143 mmol/L (135-145)
[2025-01-29] MEDS: Heparin Sodium,Porcine 5,000 UNIT/ML VIAL 5000 UNIT SUBCUT ×3 (05:59→21:07)
[2025-01-29] MEDS: Ampicillin Sodium/Sulbactam Na 3 GM in 0.9 % Sodium Chloride 100 ML IV ×2 (05:59→17:25)
[2025-01-29] MEDS: NICARDIPINE HCL IVCONT ×2 (06:12→17:25)
[2025-01-29] MEDS: SODIUM CHLORIDE 0.9% IVCONT ×2 (06:12→17:25)
[2025-01-29] MEDS: fentaNYL citrate/PF 100 MCG/2 ML VIAL 25 MCG IVPUSH (07:04)
[2025-01-29] MEDS: 0.9 % Sodium Chloride Flush 3 ML SYRINGE IVFLUSH ×3 (07:10→21:07)
[2025-01-29] MEDS: Heparin Sodium,Porcine 5,000 UNIT/ML VIAL 5000 UNIT INTRACATH (07:15)
[2025-01-29] MEDS: Albumin Human 25 % 100 ML IV (07:15)
[2025-01-29] MEDS: Potassium Chloride/H20 20 MEQ/100 ML PIGGYBACK 100 MEQ IV (07:15)
[2025-01-29 08:43] LABS: Venous Blood Gas Refer to POC result
--- NOTE | 2025-01-29 08:48 | P.PNCC_ITS ---
Subjective Subjective Date of Service: 01/29/25 Critical Care Time (minutes): 35 Comment: initiated on dialysis, undergoing hemodialysis this morning currently on BiPAP support on FiO2 30% Physical Exam 2 Vital Signs: Vital Signs: Last Vital Signs Temp 99.0 F 01/29/25 08:00 Pulse 89 01/29/25 08:00 Resp 17 01/29/25 08:00 BP 159/69 H 01/29/25 08:00 Pulse Ox 98 01/29/25 08:00 O2 Del Method BiPAP 01/29/25 08:00 O2 Flow Rate 7 01/28/25 10:00 FiO2 30 01/29/25 08:00 BMI result Body Mass Index 21.5 General: in acute distress, chronically ill appearing and tired appearing Nutritional Appearance: well nourished and overweight Eyes: appearance normal, both eyes and all related structures; Alignment and Position: alignment normal and position normal Neck: No lymphadenopathy, no thyromegaly Resp: bilateral air entry equal, occasional added sounds present mostly in the lung bases Cardio: Regular rate, regular rhythm; Heart sounds: S1 normal heart sound present and S2 normal heart sound present GI: soft, nontender, no guarding, no hepatosplenomegaly : bladder normal to inspection, bladder normal to palpation, no renal angle tenderness Skin: no rashes or lesions noted and elasticity normal Neuro: oriented to person, oriented to place, oriented to time and moves all extremities Objective Data Labs 01/29/25 05:06 01/29/25 05:06 Labs: Laboratory Results - last 24 hr 01/28/25 01/28/25 01/28/25 12:08 17:26 19:50 WBC RBC Hgb Hct MCV MCH MCHC RDW Plt Count MPV Immature Gran % (Auto) Neut % (Auto) Lymph % (Auto) [place] % (Auto) Eos % (Auto) Baso % (Auto) Lymph # (Auto) [place] # (Auto) Eos # (Auto) Baso # (Auto) Abs Immat Gran (auto) Absolute Neuts (auto) Absolute Nucleated RBC Nucleated RBC % (auto) VBG pH VBG pCO2 VBG pO2 VBG HCO3 VBG O2 Saturation VBG Base Excess Sodium 142 Potassium 3.4 Chloride 106 Carbon Dioxide 23 Anion Gap 16 BUN 45 H Creatinine 1.78 H Estim Creat Clear Calc 25.8 Estimated GFR 27 POC Glucose 322 H 220 H Random Glucose 219 H Calcium 8.8 Phosphorus 2.3 L Magnesium 2.1 Albumin 01/28/25 01/28/25 01/29/25 19:56 23:43 05:06 WBC 13.1 H RBC 2.57 L Hgb 7.7 L Hct 22.8 L MCV 88.7 MCH 30.0 MCHC 33.8 RDW 14.0 Plt Count 293 MPV 11.1 Immature Gran % (Auto) 1.7 H Neut % (Auto) 84.1 H Lymph % (Auto) 4.7 L [place] % (Auto) 7.9 Eos % (Auto) 1.3 Baso % (Auto) 0.3 Lymph # (Auto) 0.6 L [place] # (Auto) 1.0 Eos # (Auto) 0.2 Baso # (Auto) 0.0 Abs Immat Gran (auto) 0.22 H Absolute Neuts (auto) 11.0 H Absolute Nucleated RBC 0.000 Nucleated RBC % (auto) 0.0 VBG pH 7.72 H* VBG pCO2 24 VBG pO2 121 VBG HCO3 32 H VBG O2 Saturation 99.0 VBG Base Excess 13.5 Sodium 143 Potassium 3.4 Chloride 107 Carbon Dioxide 24 Anion Gap 15 BUN 58 H Creatinine 2.28 H Estim Creat Clear Calc 20.1 Estimated GFR 21 POC Glucose 228 H Random Glucose 203 H Calcium 9.0 Phosphorus 4.1 Magnesium 2.2 Albumin 3.0 L 01/29/25 05:09 WBC RBC Hgb Hct MCV MCH MCHC RDW Plt Count MPV Immature Gran % (Auto) Neut % (Auto) Lymph % (Auto) [place] % (Auto) Eos % (Auto) Baso % (Auto) Lymph # (Auto) [place] # (Auto) Eos # (Auto) Baso # (Auto) Abs Immat Gran (auto) Absolute Neuts (auto) Absolute Nucleated RBC Nucleated RBC % (auto) VBG pH 7.52 H VBG pCO2 31 VBG pO2 54 VBG HCO3 25 VBG O2 Saturation 84.0 VBG Base Excess 3.4 Sodium Potassium Chloride Carbon Dioxide Anion Gap BUN Creatinine Estim Creat Clear Calc Estimated GFR POC Glucose Random Glucose Calcium Phosphorus Magnesium Albumin Microbiology Microbiology Results: Microbiology 01/19/25 07:38 Blood - Venous Blood Culture - Final No growth after 5 days. 01/19/25 07:14 Blood - Venous Blood Culture - Final No growth after 5 days. Progress Note: A&P Assessment and plan (1) HTN (hypertension): Status: Acute (2) Heart failure: Status: Acute (3) Acute combined systolic and diastolic congestive heart failure: Status: Acute (4) CAD (coronary artery disease): Status: Acute (5) NSTEMI (non-ST elevated myocardial infarction): Status: Acute (6) Acute kidney injury superimposed on CKD: Status: Acute (7) Right hemiparesis: Status: Inactive (8) Metabolic encephalopathy: Status: Acute (9) Acute hypoxic respiratory failure: Status: Acute (10) Pneumonia: Status: Acute (11) Respiratory failure: Status: Acute (12) Pulmonary edema: Status: Acute Plan Neuro: Acute encephalopathy possibly due to metabolic encephalopathy mental status slightly improving after intiating dialysis Close neurological status monitoring in the ICU every hour Cardiac: acute on chronic heart failure: EF 29%, grade 2 diastolic dysfunction, moderate TR We will start the patient on carvedilol, hydralazine and Isordil paroxysmal atrial fibrillation: one episode 15 minutes this morning only on prophylactic heparin, if another episode we will change it to therapeutic hypertensive urgency: on nicardipine drip currently on labetalol, amlodipine, hydralazine and clonidine but couldnt take them due to poor mental status We will switch the antihypertensives to carvedilol, hydralazine and Isordil Respiratory: Acute hypoxemic respiratory failure due to pulmonary edema Currently on BiPAP support this morning, we will wean BiPAP as tolerated GI: tube feeds on hold as she is on BIPAP Renal: Acute on chronic renal failure: 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 Urinalysis bland, poor response to volume replacement Initiated on renal placement therapy, for session of dialysis on 01/27/2025, undergoing 2nd session of dialysis today We will closely monitor I's and O's Avoid nephrotoxic medications Heme: Chronic anemia, closely monitor H&H, transfuse for hemoglobin less than 7 grams/deciliter Endocrine: Blood sugars under control Sliding scale insulin as needed Infectious disease: on empiric ampicillin sulbactam for a possible superadded pneumonia Musculoskeletal: Decubitus ulcer prevention protocol Lines: peripheral Prophylaxis: heparin, pantoprazole Quality Stroke Does the patient have a stroke diagnosis?: No VTE Prior VTE?: No VTE Risk Level:: Medical - moderate - high VTE Device Contraindication: N/A - Device Ordered VTE Drug Contraindication: N/A - Med Ordered
--- NOTE | 2025-01-29 09:12 | W.PM.DNNEP ---
Subjective Subjective Date of Service: 01/29/25 This patient was seen during dialysis. Interval history: Events noted Physical Exam Vital Signs: Vital Signs: Last Vital Signs Temp 98.8 F 01/29/25 09:00 Pulse 82 01/29/25 09:00 Resp 19 01/29/25 09:00 BP 161/70 H 01/29/25 09:00 Pulse Ox 98 01/29/25 09:00 O2 Del Method BiPAP 01/29/25 09:00 O2 Flow Rate 7 01/28/25 10:00 FiO2 30 01/29/25 09:00 BMI result Body Mass Index 21.5 Const: General: no acute distress and ill appearing Eyes: EOM: EOMs intact bilaterally Neck: Neck: Yes supple Resp: Auscultation: clear to auscultation bilaterally and diminished lung sounds Cardio: Palpation: no palpable S3 Rate: regular rate Heart sounds: no rubs GI: Palpation (GI): Soft to palpation Auscultation: normal bowel sounds Neuro: General: moves all extremities Motor exam (neuro): no asterixis Assessment & Plan Assessment and plan (1) Acute kidney injury superimposed on CKD: Status: Acute (2) Acute combined systolic and diastolic congestive heart failure: Status: Acute Plan 79-year-old woman with acute kidney injury superimposed on chronic kidney disease. Differential diagnosis for acute kidney injury would include tubular injury. No obstruction based on renal ultrasonogram. Moderately atrophic right kidney. Urine sediments bland therefore glomerular nephritis or interstitial disease seem less likely. Optimize blood pressure. Avoid hypotension. Keep I > O with hypotonic fluids ( free water) Continue to avoid nephrotoxic agents including vancomycin. HD today Watch for renal recovery Time Spent With Patient Time: Total time managing care of this patient today ____ minutes. Procedures Date of Service Date of Service: 01/29/25
[2025-01-29 09:37] LABS: HBS Num1 0.13 mIU/mL (0-7.99); HBc Num1 0.21 S/CO (0.00-0.79); HBsAGNum1 0.34 S/CO (0.00-0.99); Hepatitis B Core Antibody Nonreactive (Nonreactive); Hepatitis B Surface Antigen Negative (Negative); ~Hepatitis B Surface Antibody NONREACTIVE (Nonreactive)
--- NOTE | 2025-01-29 10:10 | MHC.CLN ---
F/U PT WITH KEOFEED TUBE IN PLACE TF ON HOLD R/T BIPAP USE DISCUSSED AT ROUNDS WITH MD-PLAN TO RESTART TF RECOMMEND RE-START TF NEPRO AT MAX GOAL RATE 40ML/HR WITH 240ML FREE WATER FLUSHES Q 6 HRS TO PROVIDE 1728KCALS (28KCALS/KG), 78G PROTEIN (1.2G/KG), 1658ML TOTAL WATER FROM FORMULA AND FLUSHES (27ML/KG) MONITOR TOLERANCE AND LYTES
[2025-01-29] MEDS: hydrALAZINE HCl 50 MG TABLET PO ×3 (10:51→21:06)
[2025-01-29] MEDS: carvediloL 25 MG TABLET PO ×2 (10:51→21:06)
--- NOTE | 2025-01-29 11:09 | MHC.SLORD ---
Speech Language Pathology Order Status: Pt at dialysis this morning, ASSOCIATE [employer] to see pt in the afternoon.
--- NOTE | 2025-01-29 13:30 | MHC.CM.PN ---
Pt continues care in ICU: on BiPAP and Cardene gtt: no plans to transfer: pt has been referred to [facility] and acute rehab: will need formal PT/OT evals once medically stable. CM to follow
[2025-01-29 16:16] LABS: Glucose, Whole Blood 289 mg/dL (60-115)
[2025-01-29 17:28] LABS: Glucose, Whole Blood 233 mg/dL (60-115)
[2025-01-29] MEDS: Isosorbide Dinitrate 20 MG TABLET PO (18:02)
--- NOTE | 2025-01-29 18:18 | PC.NURSE ---
Patient unable to maintain off bipap support - tachypnic, tachycardic, abdominal breathing w/ accessory muscle use. Unable to titrate Cardene gtt off - patient medicated per EMAR. Plan of care ongoing.
[2025-01-29 21:33] LABS: Basophils Absolute Auto 0.1 X10*3/uL (0.0-0.2); Basophils Percent Auto 0.3 % (0-2); Eosinophils Absolute Auto 0.1 X10*3/uL (0.0-0.4); Eosinophils Percent Auto 0.6 % (0-4); Hematocrit 21.2 % (37.0-47.0); Imm Gran Abs Auto 0.37 X10*3/uL (0.00-0.03); Imm Gran Pct Auto 2.2 % (0.0-0.4); Lymphocytes Absolute Auto 0.9 X10*3/uL (1.2-4.9); MANUAL DIFF FLAG NO; Mean Platelet Volume 10.3 fL (9.4-12.3); Monocytes Absolute Auto 1.2 X10*3/uL (0.1-1.2); Monocytes Percent Auto 6.9 % (2-11); Neutrophils Absolute Auto 14.6 x10*3/uL (2.0-8.3); Platelet Count 379 X10*3/uL (160-400); Red Blood Count 2.33 X10*6/uL (4.20-5.50); Red Cell Distribution Width 14.3 % (11.0-16.0); White Blood Count 17.2 X10*3/uL (4.8-10.8)
[2025-01-29 21:37] LABS: ABG Base Excess 6.2 mmol/L; ABG HCO3 33 mmol/L (22-26); ABG pCO2 66 mmHg (32-45); ABG pH 7.31 (7.35-7.45); ABG pO2 92 mmHg (83-108)
[2025-01-29 21:50] LABS: Alanine Aminotransferase 10 U/L (0-31); Albumin Level 3.3 g/dL (3.5-5.0); Alkaline Phosphatase 82 U/L (39-117); Anion Gap 21 (12-20); Aspartate Amino Transferase 14 U/L (5-31); Bilirubin Total 0.5 mg/dL (0.0-1.0); Blood Urea Nitrogen 93 mg/dL (9-16); Calcium 8.5 mg/dL (8.4-10.2); Carbon Dioxide 28 mmol/L (22-29); Chloride 104 mmol/L (96-108); Creatinine Clr Calc Pharmacy 13.7; Estimated Glomerular Filt Rate 13; Glucose Random 298 mg/dL (60-115); Potassium 4.2 mmol/L (3.3-5.1); Sodium 149 mmol/L (135-145); Total Protein 6.7 g/dL (6.5-8.0)
[2025-01-29] MEDS: Norepinephrine Bitartrate/D5W 8 MG/250 ML PLAST..BAG 6 MG IVCONT (21:51)
[2025-01-29] MEDS: propofoL 1,000 MG/100 ML VIAL 11.52 MG IVCONT (21:52)
--- NOTE | 2025-01-29 22:14 | PM.CCN ---
Critical Care Event Note Summary Date of Service: 01/29/25 Code activated: No Narrative: This case had a high probability of a clinically significant, sudden, or life threatening deterioration of this patient's condition which required my full and direct attention, intervention and personal management. Critical Care Time (minutes): 20 Comment: At 2130, notified by nursing staff that patient was completely unresponsive to painful stimuli and sternal rub. Two hours previously during rounds, patient was lethargic but arousable to name and following simple commands. Pt has been on BiPAP 10/5/30%, now with moderate to severe respiratory distress, tachypneic RR 30s, using accessory muscles and abdominal breathing. BiPAP settings increased by RT. ABG was ordered. She showed pH of 7.31, pCO2 66, PaO2 of 91. Tidal volumes between 280 and 320; the patient completely unresponsive despite of painful stimuli. The plan was to intubate the patient emergently following RSI procedure under propofol induction and rocuronium paralyzation. She initial visualization of the posterior pharynx revealed a large fully obstructing foreign body in the posterior pharynx not allowing the visualization of the vocal cords, it appeared to flap up and down, suction was attempted but this was not possible. Subsequently, using the camera of the GlideScope, better visualization was made. Following this, the decision was to try to remove these or move it to the side so I could visualize the vocal cords and have a better idea of the anatomy prior to intubation. Please see procedure for foreign body removal, specimen sent to the lab for analysis. Subsequently RSI intubation took place with 7 and have tube without complications. Please see procedure note for details. Critical care time used for critical evaluation of this patient, diagnosis, treatment and coordination of care, review her records and documentation TOTAL CRITICAL CARE TIME 20 MIN . discussion and coordination with consultants, completely separate from any procedures performed. . Patient's care was discussed in detail with Dr. Orr He is aware of all the above as well as the plan of care for this patient. I also discussed this with the family members over the phone particularly with her healthcare proxy.
--- NOTE | 2025-01-29 22:15 | W.PM.CCHP ---
Procedures Date of Service Date of Service: 01/29/25 <JORY Streeter - Last Filed: 01/29/25 23:33> 01/30/25 <Jose Orr MD - Last Filed: 01/30/25 14:43> Foreign Body Removal Time out performed: yes <JORY Streeter - Last Filed: 01/29/25 23:33> Site: other (posterior pharynx) <JORY Streeter - Last Filed: 01/29/25 23:33> Description of foreign body: other (food and hair ball) <JORY Streeter - Last Filed: 01/29/25 23:33> Sedation/Analgesia: propofol <JORY Streeter - Last Filed: 01/29/25 23:33> Technique: manual removal <JORY Streeter - Last Filed: 01/29/25 23:33> Confirmed by: direct visualization <JORY Streeter - Last Filed: 01/29/25 23:33> Complications: none (pt was hypercarbic before procedure leading to intubation but air way obstruction was discovered, intubated post removal of above ) <JORY Streeter - Last Filed: 01/29/25 23:33>
--- NOTE | 2025-01-29 22:17 | W.PM.CCHP ---
Procedures Date of Service Date of Service: 01/29/25 Intubation Intubation Comments: pt gasping for air using accessory muscles and completely unresponsive despite ByPap, sternal rub not waking her, complete change from initial rounds at 7pm. sats about 94% on #0% FiO2 but TV in the high 200 and low 300's ABG obtained ph 7.3 pCO 69 pO2 91 given mental status and all the above I made the decision to intubate her, dicussed scenario with her HCP Juliano agrees with it. Pt pre Oxygenated with mask then RSI was initially attempted but a foreign body was discovered blocking the whole posterior pharinx. Please see separate procedure for foreign body removal Consent for Procedure: Elective - informed consent obtained Time out performed: Yes Sedative: propofol Mg given: 100 Paralytic: rocuronium Mg given: 30 Laryngoscope: fiber optic video scope ET tube size: 7.5 ET tube uncuffed: Yes Tube secured depth (cm): 26 Tube placement confirmation: visualized tube passing through cords, equal breath sounds bilaterally, no breath sounds over epigastrium and confirmation by capnometry Patient tolerated procedure: well Intubation complications: none (after fbx removal, post intubation CXR shows tube 4 cm above the jeremías no Ptrx)
[2025-01-29] MEDS: Rocuronium Bromide 50 MG/5 ML VIAL 30 MG IVPUSH (22:35)
[2025-01-29] MEDS: propofoL 200 MG/20 ML VIAL 100 MG IVPUSH (22:35)
[2025-01-29] MEDS: Chlorhexidine Gluc Oral Rinse 15 ML MOUTHWASH BUCCAL (22:40)
[2025-01-29 23:53] LABS: ABG Refer to POC result
[2025-01-29 23:59] LABS: Glucose, Whole Blood 355 mg/dL (60-115)
[2025-01-30] VITALS (59 sets, daily range): BP systolic 53–181; BP diastolic 29–73; PULSE 42–91; RESP 14–25; TEMP 34–37.8; O2SAT 91–100; BMI 19.5
[2025-01-30] MEDS: propofoL 1,000 MG/100 ML VIAL 19.2 MG IVCONT ×2 (01:30→06:01)
[2025-01-30 04:23] LABS: VBG Base Excess 6.1 mmol/L; VBG HCO3 27 mmol/L (22-26); VBG pCO2 25 mmHg; VBG pH 7.63 (7.32-7.43); VBG pO2 40 mmHg
[2025-01-30 04:42] LABS: MANUAL DIFF FLAG NO
[2025-01-30 04:45] LABS: Basophils Percent Auto 0.3 % (0-2); Eosinophils Percent Auto 0.2 % (0-4); Imm Gran Abs Auto 0.25 X10*3/uL (0.00-0.03); Imm Gran Pct Auto 1.9 % (0.0-0.4); Lymphocytes Absolute Auto 0.8 X10*3/uL (1.2-4.9); Mean Corpuscular HGB Conc 33.2 g/dl (31.0-35.0); Mean Corpuscular Hemoglobin 29.4 pg (27.0-33.0); Mean Corpuscular Volume 88.5 fL (80.0-98.0); Monocytes Percent Auto 7.6 % (2-11); NRBC Pct Auto 0.1 /100WBC (0.0-0.2); Neutrophils Absolute Auto 11.3 x10*3/uL (2.0-8.3); Platelet Count 364 X10*3/uL (160-400); Red Blood Count 2.18 X10*6/uL (4.20-5.50); Red Cell Distribution Width 14.2 % (11.0-16.0); White Blood Count 13.5 X10*3/uL (4.8-10.8)
[2025-01-30 04:48] LABS: Hematocrit 19.3 % (37.0-47.0); Hemoglobin 6.4 g/dl (12.0-16.0)
[2025-01-30] MEDS: Ampicillin Sodium/Sulbactam Na 3 GM in 0.9 % Sodium Chloride 100 ML IV ×2 (05:10→17:46)
[2025-01-30 05:18] LABS: Alanine Aminotransferase 11 U/L (0-31); Albumin Level 3.2 g/dL (3.5-5.0); Alkaline Phosphatase 80 U/L (39-117); Anion Gap 25 (12-20); Aspartate Amino Transferase 18 U/L (5-31); Bilirubin Total 0.5 mg/dL (0.0-1.0); Blood Urea Nitrogen 114 mg/dL (9-16); Calcium 8.5 mg/dL (8.4-10.2); Carbon Dioxide 23 mmol/L (22-29); Chloride 105 mmol/L (96-108); Creatinine Clr Calc Pharmacy 11.1; Estimated Glomerular Filt Rate 12; Glucose Random 252 mg/dL (60-115); Magnesium 2.5 mg/dL (1.6-2.6); Phosphorus 5.2 mg/dL (2.7-4.5); Potassium 3.5 mmol/L (3.3-5.1); Sodium 149 mmol/L (135-145); Total Protein 6.7 g/dL (6.5-8.0)
[2025-01-30] MEDS: Insulin Lispro 100 UNIT/ML 3 ML VIAL SUBCUT ×3 (05:22→17:53)
[2025-01-30 05:31] LABS: Venous Blood Gas Refer to POC result
--- NOTE | 2025-01-30 06:13 | PC.NURSE ---
Upon initial assessment at 2000- pt lethargic/obtunded but arousable to name and following simple commands, weakly BURGESS. On BiPAP 10/5/30%. At approx 213- pt completely unresponsive to painful stimuli and sternal rub; still on BiPAP now with respiratory distress- tachypneic RR 30s, Vt 100-200s, using accessory muscles and abdominal breathing. JORY Fernando notified and to bedside. BiPAP settings increased by RT. ABG ordered. HCP called and updated by PA with decision to intubate. At approx 214- pt given total of propofol 100 mg IVP and rocuronium 30 mg IVP for RSI. During intubation, large mass noted around NGT in posterior pharynx and removed by PA. ETT #7.5, 26 cm at lip. Placed on ACVC settings. Propofol gtt started for sedation. Family to bedside at approx 2200 and updated on pt status/plan of care by this RN and PA. See EMR/flowsheet for further details.
[2025-01-30] MEDS: 0.9 % Sodium Chloride Flush 3 ML SYRINGE IVFLUSH ×2 (07:42→14:35)
[2025-01-30] MEDS: hydrALAZINE HCl 50 MG TABLET PO (08:00)
--- NOTE | 2025-01-30 08:34 | PM.CCPN ---
Subjective Subjective Date of Service: 01/30/25 Critical Care Time (minutes): 35 Comment: Patient had to be intubated overnight due to increased work of breathing and respiratory fatigue Physical Exam Vital Signs: Vital Signs: Last Vital Signs Temp 98.8 F 01/30/25 08:00 Pulse 91 01/30/25 08:00 Resp 25 H 01/30/25 08:00 BP 153/68 H 01/30/25 08:00 Pulse Ox 91 L 01/30/25 08:00 O2 Del Method Mechanical Ventil ation 01/30/25 08:00 O2 Flow Rate 2 01/29/25 10:56 FiO2 21 01/30/25 08:00 BMI result Body Mass Index 19.5 General: Elderly female in acute distress, ill appearing and tired appearing Nutritional Appearance: well nourished and overweight Eyes: appearance normal, both eyes and all related structures; Alignment and Position: alignment normal and position normal Neck: No lymphadenopathy, no thyromegaly Resp: bilateral air entry equal, occasional added sounds present Cardio: Regular rate, regular rhythm; Heart sounds: S1 normal heart sound present and S2 normal heart sound present GI: soft, nontender, no guarding, no hepatosplenomegaly : bladder normal to inspection, bladder normal to palpation, no renal angle tenderness Skin: no rashes or lesions noted and elasticity normal Neuro: Sedated, no focal deficits Objective Data Labs 01/30/25 10:19 01/30/25 04:15 Labs: Laboratory Results - last 24 hr 01/29/25 01/29/25 01/29/25 07:54 12:13 17:22 WBC RBC Hgb Hct MCV MCH MCHC RDW Plt Count MPV Immature Gran % (Auto) Neut % (Auto) Lymph % (Auto) [place] % (Auto) Eos % (Auto) Baso % (Auto) Lymph # (Auto) [place] # (Auto) Eos # (Auto) Baso # (Auto) Abs Immat Gran (auto) Absolute Neuts (auto) Absolute Nucleated RBC Nucleated RBC % (auto) O2 Saturation ABG pH at Pt Temp ABG pCO2 at Pt Temp ABG pO2 at Pt Temp ABG HCO3 ABG Base Excess (Actual) VBG pH VBG pCO2 VBG pO2 VBG HCO3 VBG O2 Saturation VBG Base Excess Sodium Potassium Chloride Carbon Dioxide Anion Gap BUN Creatinine Estim Creat Clear Calc Estimated GFR POC Glucose 289 H 233 H Random Glucose Calcium Phosphorus Magnesium Total Bilirubin AST ALT Alkaline Phosphatase Total Protein Albumin Hep Bs Antigen Negative Hep Bs Antibody NONREACTIVE Hep B Core Total Ab Nonreactive Blood Type Antibody Screen 01/29/25 01/29/25 01/29/25 21:28 21:32 23:49 WBC 17.2 H RBC 2.33 L Hgb 7.0 L* Hct 21.2 L MCV 91.0 MCH 30.0 MCHC 33.0 RDW 14.3 Plt Count 379 D MPV 10.3 Immature Gran % (Auto) 2.2 H Neut % (Auto) 85.0 H Lymph % (Auto) 5.0 L [place] % (Auto) 6.9 Eos % (Auto) 0.6 Baso % (Auto) 0.3 Lymph # (Auto) 0.9 L [place] # (Auto) 1.2 Eos # (Auto) 0.1 Baso # (Auto) 0.1 Abs Immat Gran (auto) 0.37 H Absolute Neuts (auto) 14.6 H Absolute Nucleated RBC 0.000 Nucleated RBC % (auto) 0.0 O2 Saturation 95.0 ABG pH at Pt Temp 7.31 L ABG pCO2 at Pt Temp 66 H* ABG pO2 at Pt Temp 92 ABG HCO3 33 H ABG Base Excess (Actual) 6.2 VBG pH VBG pCO2 VBG pO2 VBG HCO3 VBG O2 Saturation VBG Base Excess Sodium 149 H Potassium 4.2 D Chloride 104 Carbon Dioxide 28 Anion Gap 21 H BUN 93 H Creatinine 3.35 H Estim Creat Clear Calc 13.7 Estimated GFR 13 POC Glucose 355 H* Random Glucose 298 H Calcium 8.5 Phosphorus Magnesium Total Bilirubin 0.5 AST 14 ALT 10 Alkaline Phosphatase 82 Total Protein 6.7 Albumin 3.3 L Hep Bs Antigen Hep Bs Antibody Hep B Core Total Ab Blood Type Antibody Screen 01/30/25 01/30/25 01/30/25 04:15 04:20 05:00 WBC 13.5 H RBC 2.18 L Hgb 6.4 L* Hct 19.3 L* MCV 88.5 MCH 29.4 MCHC 33.2 RDW 14.2 Plt Count 364 MPV 11.0 Immature Gran % (Auto) 1.9 H Neut % (Auto) 84.0 H Lymph % (Auto) 6.0 L [place] % (Auto) 7.6 Eos % (Auto) 0.2 Baso % (Auto) 0.3 Lymph # (Auto) 0.8 L [place] # (Auto) 1.0 Eos # (Auto) 0.0 Baso # (Auto) 0.0 Abs Immat Gran (auto) 0.25 H Absolute Neuts (auto) 11.3 H Absolute Nucleated RBC 0.020 H Nucleated RBC % (auto) 0.1 O2 Saturation ABG pH at Pt Temp ABG pCO2 at Pt Temp ABG pO2 at Pt Temp ABG HCO3 ABG Base Excess (Actual) VBG pH 7.63 H* VBG pCO2 25 VBG pO2 40 VBG HCO3 27 H VBG O2 Saturation 70.0 VBG Base Excess 6.1 Sodium 149 H Potassium 3.5 Chloride 105 Carbon Dioxide 23 Anion Gap 25 H BUN 114 H Creatinine 3.73 H Estim Creat Clear Calc 11.1 Estimated GFR 12 POC Glucose Random Glucose 252 H Calcium 8.5 Phosphorus 5.2 H Magnesium 2.5 Total Bilirubin 0.5 AST 18 ALT 11 Alkaline Phosphatase 80 Total Protein 6.7 Albumin 3.2 L Hep Bs Antigen Hep Bs Antibody Hep B Core Total Ab Blood Type A Positive Antibody Screen NEGATIVE Microbiology Microbiology Results: Microbiology 01/19/25 07:38 Blood - Venous Blood Culture - Final No growth after 5 days. 01/19/25 07:14 Blood - Venous Blood Culture - Final No growth after 5 days. Progress Note: A&P Assessment and plan (1) HTN (hypertension): Status: Acute (2) Heart failure: Status: Acute (3) Acute combined systolic and diastolic congestive heart failure: Status: Acute (4) CAD (coronary artery disease): Status: Acute (5) NSTEMI (non-ST elevated myocardial infarction): Status: Acute (6) Hyperlipidemia: Status: Acute (7) CKD (chronic kidney disease): Status: Acute (8) Acute kidney injury superimposed on CKD: Status: Acute (9) Cerebrovascular accident: Status: Acute (10) Metabolic encephalopathy: Status: Acute (11) Mild cognitive impairment: Status: Acute (12) Dementia: Status: Acute (13) Respiratory failure: Status: Acute (14) Pneumonia: Status: Acute (15) Acute hypoxic respiratory failure: Status: Acute (16) Pulmonary edema: Status: Acute Plan Neuro: Acute encephalopathy possibly due to metabolic encephalopathy mental status slightly improving after intiating dialysis Currently on Close neurological status monitoring in the ICU every hour Cardiac: acute on chronic heart failure: EF 29%, grade 2 diastolic dysfunction, moderate TR continue carvedilol, hydralazine and Isordil paroxysmal atrial fibrillation: one episode 15 minutes on 01/29/2025 only on prophylactic heparin, if another episode we will change it to therapeutic hypertensive urgency: off nicardipine drip since positive pressure ventilation continue carvedilol, hydralazine and Isordil Hemorrhagic shock: Patient started the day with hypertension but later on dropped the blood pressures due to hemorrhagic shock from upper GI bleed. Received 2 units of PRBC, 500 cc of NS and 200 cc of albumin and later started on Levophed for vasopressor support. Titrate Levophed to keep map above 65 mm Hg Respiratory: Had to be intubated on 01/29/2025 due to respiratory decompensation due to respiratory fatigue On ventilator support this morning PRVC mode FiO2: 21% PEEP:5 TV:400 RR:20 Ventilator management bundle Head end elevation, chlorhexidine oral care, daily spontaneous awakening trials, daily spontaneous breathing trials, bronchodilators as needed GI: Patient had large volume upper GI coffee ground emesis which was suctioned through OG tube Pantoprazole IV 80 mg start and 40 mg IV b.i.d. 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 Urinalysis bland, poor response to volume replacement Initiated on renal placement therapy, for session of dialysis on 01/27/2025, undergoing 2nd session of dialysis yesterday We will closely monitor I's and O's Avoid nephrotoxic medications Heme: Acute blood loss anemia: Secondary to upper GI bleed, received 2 units of PRBC transfusion, target to keep hemoglobin above 7 INR 1.2 Endocrine: Blood sugars under control Sliding scale insulin as needed Infectious disease: on empiric ampicillin sulbactam for a possible superadded pneumonia Musculoskeletal: Decubitus ulcer prevention protocol Lines: peripheral Prophylaxis: heparin, pantoprazole Total critical care time spent is about 60 minutes on ventilator management, sedation management, changing ventilator settings, close hemodynamic monitoring, managing patient's hemorrhagic shock with multiple transfusions and fluid boluses, vasopressor management at this time is excluding any procedural time Quality Stroke Does the patient have a stroke diagnosis?: No VTE Prior VTE?: No VTE Risk Level:: Medical - moderate - high VTE Device Contraindication: N/A - Device Ordered VTE Drug Contraindication: N/A - Med Ordered
[2025-01-30] MEDS: Metoclopramide HCl 10 MG/2 ML VIAL IVPUSH ×2 (09:30→17:46)
[2025-01-30] MEDS: Chlorhexidine Gluc Oral Rinse 15 ML MOUTHWASH BUCCAL ×3 (09:31→20:42)
[2025-01-30] MEDS: carvediloL 25 MG TABLET PO (09:31)
[2025-01-30] MEDS: Isosorbide Dinitrate 20 MG TABLET PO (09:31)
[2025-01-30 09:37] LABS: OBS Int Ctl Valid YES; OBS1 POSITIVE (NEGATIVE)
--- NOTE | 2025-01-30 10:01 | PM.PNNEP ---
Subjective Subjective Date of Service: 01/30/25 Interval history: Events noted Physical Exam Vital Signs: Vital Signs: Last Vital Signs Temp 99.9 F 01/30/25 09:00 Pulse 90 01/30/25 09:00 Resp 18 01/30/25 09:00 BP 168/73 H 01/30/25 09:00 Pulse Ox 97 01/30/25 09:00 O2 Del Method Mechanical Ventil ation 01/30/25 09:00 O2 Flow Rate 2 01/29/25 10:56 FiO2 21 01/30/25 09:00 BMI result Body Mass Index 19.5 Const: General: no acute distress and ill appearing Eyes: EOM: EOMs intact bilaterally Neck: Neck: Yes supple Resp: Auscultation: clear to auscultation bilaterally and diminished lung sounds Cardio: Palpation: no palpable S3 Rate: regular rate Heart sounds: no rubs GI: Palpation (GI): Soft to palpation Auscultation: normal bowel sounds Neuro: General: moves all extremities Motor exam (neuro): no asterixis Objective Data Labs 02/01/25 04:15 02/01/25 04:16 Labs: Laboratory Results - last 24 hr 01/29/25 01/29/25 01/29/25 12:13 17:22 21:28 WBC 17.2 H RBC 2.33 L Hgb 7.0 L* Hct 21.2 L MCV 91.0 MCH 30.0 MCHC 33.0 RDW 14.3 Plt Count 379 D MPV 10.3 Immature Gran % (Auto) 2.2 H Neut % (Auto) 85.0 H Lymph % (Auto) 5.0 L [place] % (Auto) 6.9 Eos % (Auto) 0.6 Baso % (Auto) 0.3 Lymph # (Auto) 0.9 L [place] # (Auto) 1.2 Eos # (Auto) 0.1 Baso # (Auto) 0.1 Abs Immat Gran (auto) 0.37 H Absolute Neuts (auto) 14.6 H Absolute Nucleated RBC 0.000 Nucleated RBC % (auto) 0.0 O2 Saturation ABG pH at Pt Temp ABG pCO2 at Pt Temp ABG pO2 at Pt Temp ABG HCO3 ABG Base Excess (Actual) VBG pH VBG pCO2 VBG pO2 VBG HCO3 VBG O2 Saturation VBG Base Excess Sodium 149 H Potassium 4.2 D Chloride 104 Carbon Dioxide 28 Anion Gap 21 H BUN 93 H Creatinine 3.35 H Estim Creat Clear Calc 13.7 Estimated GFR 13 POC Glucose 289 H 233 H Random Glucose 298 H Calcium 8.5 Phosphorus Magnesium Total Bilirubin 0.5 AST 14 ALT 10 Alkaline Phosphatase 82 Total Protein 6.7 Albumin 3.3 L Stool Occult Blood Blood Type Antibody Screen 01/29/25 01/29/25 01/30/25 21:32 23:49 04:15 WBC 13.5 H RBC 2.18 L Hgb 6.4 L* Hct 19.3 L* MCV 88.5 MCH 29.4 MCHC 33.2 RDW 14.2 Plt Count 364 MPV 11.0 Immature Gran % (Auto) 1.9 H Neut % (Auto) 84.0 H Lymph % (Auto) 6.0 L [place] % (Auto) 7.6 Eos % (Auto) 0.2 Baso % (Auto) 0.3 Lymph # (Auto) 0.8 L [place] # (Auto) 1.0 Eos # (Auto) 0.0 Baso # (Auto) 0.0 Abs Immat Gran (auto) 0.25 H Absolute Neuts (auto) 11.3 H Absolute Nucleated RBC 0.020 H Nucleated RBC % (auto) 0.1 O2 Saturation 95.0 ABG pH at Pt Temp 7.31 L ABG pCO2 at Pt Temp 66 H* ABG pO2 at Pt Temp 92 ABG HCO3 33 H ABG Base Excess (Actual) 6.2 VBG pH VBG pCO2 VBG pO2 VBG HCO3 VBG O2 Saturation VBG Base Excess Sodium 149 H Potassium 3.5 Chloride 105 Carbon Dioxide 23 Anion Gap 25 H BUN 114 H Creatinine 3.73 H Estim Creat Clear Calc 11.1 Estimated GFR 12 POC Glucose 355 H* Random Glucose 252 H Calcium 8.5 Phosphorus 5.2 H Magnesium 2.5 Total Bilirubin 0.5 AST 18 ALT 11 Alkaline Phosphatase 80 Total Protein 6.7 Albumin 3.2 L Stool Occult Blood Blood Type Antibody Screen 01/30/25 01/30/25 01/30/25 04:20 05:00 08:20 WBC RBC Hgb Hct MCV MCH MCHC RDW Plt Count MPV Immature Gran % (Auto) Neut % (Auto) Lymph % (Auto) [place] % (Auto) Eos % (Auto) Baso % (Auto) Lymph # (Auto) [place] # (Auto) Eos # (Auto) Baso # (Auto) Abs Immat Gran (auto) Absolute Neuts (auto) Absolute Nucleated RBC Nucleated RBC % (auto) O2 Saturation ABG pH at Pt Temp ABG pCO2 at Pt Temp ABG pO2 at Pt Temp ABG HCO3 ABG Base Excess (Actual) VBG pH 7.63 H* VBG pCO2 25 VBG pO2 40 VBG HCO3 27 H VBG O2 Saturation 70.0 VBG Base Excess 6.1 Sodium Potassium Chloride Carbon Dioxide Anion Gap BUN Creatinine Estim Creat Clear Calc Estimated GFR POC Glucose Random Glucose Calcium Phosphorus Magnesium Total Bilirubin AST ALT Alkaline Phosphatase Total Protein Albumin Stool Occult Blood POSITIVE Blood Type A Positive Antibody Screen NEGATIVE Microbiology Microbiology Results: Microbiology 01/19/25 07:38 Blood - Venous Blood Culture - Final No growth after 5 days. 01/19/25 07:14 Blood - Venous Blood Culture - Final No growth after 5 days. Procedures Date of Service Date of Service: 02/01/25 Assessment & Plan Assessment and plan (1) Acute kidney injury superimposed on CKD: Status: Acute (2) Acute combined systolic and diastolic congestive heart failure: Status: Acute Plan 79-year-old woman with acute kidney injury superimposed on chronic kidney disease. Differential diagnosis for acute kidney injury would include tubular injury. No obstruction based on renal ultrasonogram. Moderately atrophic right kidney. Urine sediments bland therefore glomerular nephritis or interstitial disease seem less likely. Optimize blood pressure. Avoid hypotension. Keep I > O with hypotonic fluids ( free water) Continue to avoid nephrotoxic agents including vancomycin. Hold HD today Watch for renal recovery Time Spent With Patient Time: Total time managing care of this patient today ____ minutes. Progress Note: Quality Stroke Does the patient have a stroke diagnosis?: No
[2025-01-30] MEDS: dexmedeTOMIDidine HCL/NS 400 MCG/100 ML INFUS..BTL 14.53 MCG IVCONT (10:15)
[2025-01-30] MEDS: cloNIDine 0.3 MG PATCH.TDWK TRANSDERMA (10:16)
[2025-01-30 10:26] LABS: Mean Corpuscular HGB Conc 34.1 g/dl (31.0-35.0); Mean Corpuscular Hemoglobin 30.2 pg (27.0-33.0); Mean Corpuscular Volume 88.6 fL (80.0-98.0); Mean Platelet Volume 10.7 fL (9.4-12.3); NRBC Pct Auto 0.2 /100WBC (0.0-0.2); Platelet Count 348 X10*3/uL (160-400); Red Blood Count 2.02 X10*6/uL (4.20-5.50); Red Cell Distribution Width 14.2 % (11.0-16.0); White Blood Count 15.1 X10*3/uL (4.8-10.8)
[2025-01-30 10:29] LABS: Hemoglobin 6.1 g/dl (12.0-16.0)
[2025-01-30] MEDS: Pantoprazole Sodium 40 MG/10 ML VIAL 80 MG IVPUSH (10:29)
[2025-01-30 10:30] LABS: Hematocrit 17.9 % (37.0-47.0)
[2025-01-30 10:45] LABS: CDiff Gene PCR NEGATIVE (Negative)
--- NOTE | 2025-01-30 11:05 | P.CDIM_ITS ---
PROVIDER RESPONSE TEXT: To clarify, the appropriate diagnosis supported by the clinical indicators: Hypernatremia: Acute hypernatremia QUERY TEXT: PHYSICIAN'S DOCUMENTATION REQUEST Date of Query: 01/30/2025 08:59 AM EST Patient Name: Radha Wright Admit Date: 01/19/2025 Dear Jose Orr MD, A review of the medical record indicates additional documentation may be needed. Please review below and update the documentation accordingly. Clinical Indicators: LABS: sodium 149 H Fluids Based on the above, could you clarify if there is a diagnosis that correlates with these lab findings ? Hypernatremia possible, probable, suspected etc. Labs indicate a diagnosis of (please specify) Other (explain) Clinically unable to determine (explain) Thank you, Claire Vo, CCS, CDIS Use of terms such as suspected, likely, concern for, or probable (associated with a specific diagnosi s that is being evaluated, monitored, or treated as if it exists) are acceptable and can be coded in the inpatient se tting, when documented at the time of discharge. Please use your independent medical judgment in providing your response. THIS QUERY IS PART OF THE PERMANENT MEDICAL RECORD
[2025-01-30 11:25] LABS: Glucose, Whole Blood 238 mg/dL (60-115)
--- NOTE | 2025-01-30 11:53 | PM.GICN ---
History of Present Illness Data of Consult Service Date: 01/30/25 Requesting physician: Jose Orr Primary Care Provider: Tyree Amador MD [facility] Reason for consult: GIB This is a 79-year-old female with past medical history of coronary artery disease with cardiomyopathy EF 30%, history of previous CVA with right hemiparesis, hypertension, type 2 diabetes, LUANA, who presented to the hospital initially on 01/19 for altered mental status and hypoxic respiratory failure requiring intubation. She was extubated on 01/22. Complicated by progressive renal failure requiring renal replacement therapy and hypertensive urgency. Unfortunately last night had decompensation of her respiratory status again requiring re-intubation.. Patient was also noted to have a drop in her H&H over the last 24 hours for which Gastroenterology has been consulted. Her initial hemoglobin at the time of admission was low at 9.7 and has slowly downtrending over the course of hospitalization, but she has had rapid drop since the last day. OG aspirate shows coffee grounds output of >1.5L since this morning. Pt currently receiving 1u PRBC. Vent requirements are minimal and she is sedated on precedex. Review of Systems Review of Systems: Yes all other systems are reviewed and are negative PMF Past Medical History Medical History (Updated 01/30/25 @ 12:09 by Beata Raymond MD) Dementia Right hemiparesis Cerebrovascular accident Toe amputee Mild cognitive impairment Tremors of nervous system Obstructive sleep apnea C. difficile colitis Septic shock Arthritis Hyperlipidemia CKD (chronic kidney disease) Hypothyroid HTN (hypertension) CAD (coronary artery disease) Diabetes Amputation of toe H/O nephrolithotomy with removal of calculi Family History Family History Mother FH: lung cancer Father No problems noted. Family/Other Heart disease Family/Other Bladder cancer Surgical History Surgical History Hx of heart artery stent Social History Social History Household Members: Family Housing: House Do you presently have visiting nurse or other home services: Yes ([facility]) Alcohol intake: never Patient Tobacco Use Status: Never used Tobacco Advance Directives Date on File: 01/28/25 Meds Allergies Allergy/AdvReac Type Severity Reaction Status Date / Time pioglitazone [From Actos] Allergy Severe Anaphylaxis Verified 01/19/25 07:00 Active Medications: Current Medications Carvedilol (Carvedilol 25 Mg Tablet) 25 mg PO BID [facility]; Protocol Last Admin: 01/30/25 09:31 Dose: 25 mg Chlorhexidine Gluconate (Chlorhexidine Gluc Oral Rinse 15 Ml Mouthwash) 15 ml BUCCAL TID [facility] Last Admin: 01/30/25 09:31 Dose: 15 ml Clonidine (Clonidine 0.3 Mg Patch.Tdwk) 0.3 mg TRANSDERMA Tu@0900 [facility]; Protocol Last Admin: 01/30/25 10:16 Dose: 0.3 mg Dextrose (Dextrose 50 % 25 Gm/50 Ml Syringe) 25 gm IVPUSH Q15M PRN; Protocol PRN Reason: per Hypoglycemia Standing Ord. Glucose (Glucose Gel 15 Gm Gel..Gram.) 15 gm PO Q15M PRN; Protocol PRN Reason: per Hypoglycemia Standing Ord. Heparin Sodium (Porcine) (Heparin Sodium,Porcine 5,000 Unit/Ml Vial) 5,000 unit SUBCUT Q8H [facility] Last Admin: 01/30/25 11:50 Dose: Not Given Hydralazine HCl (Hydralazine Hcl 20 Mg/Ml Vial) 10 mg IVPUSH Q4H PRN; Protocol PRN Reason: Hypertension Last Admin: 01/23/25 10:18 Dose: 10 mg Hydralazine HCl (Hydralazine Hcl 50 Mg Tablet) 50 mg PO QID [facility]; Protocol Last Admin: 01/30/25 11:50 Dose: Not Given Nicardipine HCl 25 mg/ Sodium (Chloride) 250 mls @ 0 mls/hr IVCONT .Q0M [facility]; Protocol Last Titration: 01/28/25 23:39 Dose: Infused Ampicillin Sodium/Sulbactam (Sodium 3 gm/ Sodium Chloride) 100 mls @ 200 mls/hr IV Q12H [facility] Last Infusion: 01/30/25 05:45 Dose: Infused Nicardipine HCl 50 mg/ Sodium (Chloride) 100 mls @ 0 mls/hr IVCONT .Q0M [facility]; Protocol Last Infusion: 01/29/25 20:54 Dose: 0 mg/hr, 0 mls/hr Propofol (Diprivan) 1,000 mg in 100 mls @ 0 mls/hr IVCONT .Q0M [facility]; Protocol Last Titration: 01/30/25 10:17 Dose: Infused Norepinephrine Bitartrate (Levophed) 8 mg in 250 mls @ 0 mls/hr IVCONT .Q0M KENYA; Protocol Last Titration: 01/30/25 08:53 Dose: Infused Dexmedetomidine HCl (Precedex) 400 mcg in 100 mls @ 0 mls/hr IVCONT .Q0M KENYA; Protocol Last Admin: 01/30/25 10:15 Dose: 1 mcg/kg/hr, 14.53 mls/hr Insulin Human Lispro (Insulin Lispro 100 Unit/Ml 3 Ml Vial) 0 unit SUBCUT Q6H [facility]; Protocol Last Admin: 01/30/25 05:22 Dose: 6 unit Isosorbide Dinitrate (Isosorbide Dinitrate 20 Mg Tablet) 20 mg PO 0800,1300,1800 [facility]; Protocol Last Admin: 01/30/25 11:50 Dose: Not Given Levalbuterol HCl (Levalbuterol Hcl 1.25 Mg/3 Ml Vial.Neb) 1.25 mg INHALE Q4H PRN PRN Reason: Shortness of Breath/Wheezing Last Admin: 01/28/25 20:43 Dose: 1.25 mg Levothyroxine Sodium (Levothyroxine Sodium 125 Mcg Tablet) 125 mcg PO DAILY@0600 [facility] Last Admin: 01/30/25 04:23 Dose: Not Given Metoclopramide HCl (Metoclopramide Hcl 10 Mg/2 Ml Vial) 10 mg IVPUSH Q8H [facility] Last Admin: 01/30/25 09:30 Dose: 10 mg Pantoprazole Sodium (Pantoprazole Sodium 40 Mg/10 Ml Vial) 40 mg IVPUSH BID@0630,1630 [facility] Sodium Chloride (0.9 % Sodium Chloride Flush 3 Ml Syringe) 3 ml IVFLUSH QSHIFT [facility] Last Admin: 01/30/25 07:42 Dose: 3 ml Home Medications ?Medication ?Instructions ?Recorded ?Confirmed ?Last Taken ?Type alpha lipoic acid 200 mg capsule 600 mg PO BEDTIME 03/13/22 01/19/25 Unknown History bumetanide 1 mg tablet 1 mg PO Q48H 03/13/22 01/19/25 Unknown History hydralazine 50 mg tablet 75 mg PO QID 03/13/22 01/19/25 Unknown History ascorbic acid (vitamin C) 250 mg 250 mg PO BID 01/13/23 01/19/25 Unknown History tablet mecobalamin (vitamin B12) 1,000 1,000 mcg PO DAILY 01/13/23 01/19/25 Unknown History mcg chewable tablet omeprazole 20 mg capsule,delayed 40 mg PO DAILY@0630 01/13/23 01/19/25 Unknown History release sodium bicarbonate 650 mg tablet 1,300 mg PO TID 01/13/23 01/19/25 Unknown History amlodipine 10 mg tablet 10 mg PO DAILY 04/10/24 01/19/25 Unknown History atorvastatin 20 mg tablet 80 mg PO BEDTIME 04/10/24 01/19/25 Unknown History gabapentin 600 mg tablet 600 mg PO BEDTIME 04/10/24 01/19/25 Unknown History icosapent ethyl 1 gram capsule 1 g PO BID 08/30/24 01/19/25 Unknown History (Vascepa) acetaminophen 325 mg tablet 650 mg PO Q6H PRN Pain/Fever 01/19/25 01/19/25 Unknown History apixaban 2.5 mg tablet (Eliquis) 2.5 mg PO BID 01/19/25 01/19/25 Unknown History bisacodyl 10 mg rectal suppository 10 mg OH DAILY PRN Constipation 01/19/25 01/19/25 Unknown History cholecalciferol (vitamin D3) 50 50 mcg PO DAILY 01/19/25 01/19/25 Unknown History mcg (2,000 unit) tablet (Vitamin D3) clonidine HCl 0.1 mg tablet 0.1 mg PO BID 01/19/25 01/19/25 Unknown History docusate sodium 100 mg capsule 100 mg PO DAILY 01/19/25 01/19/25 Unknown History ferrous sulfate 137 mg (45 mg 137 mg PO DAILY 01/19/25 01/19/25 Unknown History iron) tablet,extended release insulin glargine 100 unit/mL (3 20 unit subcut BEDTIME 01/19/25 01/19/25 Unknown History mL) subcutaneous pen (Lantus Solostar U-100 Insulin) insulin lispro 100 unit/mL 1 sliding scale dose subcut 01/19/25 01/19/25 Unknown History subcutaneous pen (Humalog KwikPen USEASDIRECTD (U-100) Insulin) labetalol 100 mg tablet 100 mg PO DAILY 01/19/25 01/19/25 Unknown History levothyroxine 125 mcg tablet 125 mcg PO DAILY@0600 01/19/25 01/19/25 Unknown History magnesium hydroxide 400 mg/5 mL 5 ml PO DAILY PRN Constipation 01/19/25 01/19/25 Unknown History oral suspension (Milk of Magnesia) magnesium oxide 400 mg PO DAILY 01/19/25 01/19/25 Unknown History polyethylene glycol 3350 17 17 g PO DAILY 01/19/25 01/19/25 Unknown History gram/dose oral powder (Miralax) sennosides 8.6 mg tablet (senna) 17.2 mg PO BEDTIME Constipation 01/19/25 01/19/25 Unknown History Physical Exam Vital Signs: Vital Signs: Last Vital Signs Temp 99.5 F 01/30/25 11:00 Pulse 84 01/30/25 11:00 Resp 16 01/30/25 11:00 BP 148/63 H 01/30/25 11:00 Pulse Ox 99 01/30/25 11:20 O2 Del Method Mechanical Ventil ation 01/30/25 11:00 O2 Flow Rate 2 01/29/25 10:56 FiO2 21 01/30/25 11:27 BMI result Body Mass Index 19.5 Elderly female pale appearing mechanically ventilated and sedated abd soft, mildly distended, no wincing to palpation mild BERE Results Labs 01/30/25 10:19 01/30/25 04:15 Labs: Short CBC 01/29/25 01/30/25 01/30/25 Range/Units 21:28 04:15 10:19 WBC 17.2 H 13.5 H 15.1 H (4.8-10.8) X10*3/uL Hgb 7.0 L* 6.4 L* 6.1 L* (12.0-16.0) g/dl Hct 21.2 L 19.3 L* 17.9 L* (37.0-47.0) % Plt Count 379 D 364 348 (160-400) X10*3/uL BMP 01/29/25 01/30/25 21:28 04:15 Sodium 149 H 149 H Potassium 4.2 D 3.5 Chloride 104 105 Carbon Dioxide 28 23 BUN 93 H 114 H Creatinine 3.35 H 3.73 H Calcium 8.5 8.5 Liver Function 01/29/25 01/30/25 Range/Units 21:28 04:15 Total Bilirubin 0.5 0.5 (0.0-1.0) mg/dL AST 14 18 (5-31) U/L ALT 10 11 (0-31) U/L Alkaline Phosphatase 82 80 (39-117) U/L Albumin 3.3 L 3.2 L (3.5-5.0) g/dL Microbiology Microbiology Results: Microbiology 01/19/25 07:38 Blood - Venous Blood Culture - Final No growth after 5 days. 01/19/25 07:14 Blood - Venous Blood Culture - Final No growth after 5 days. Assessment and Plan (1) Acute on chronic anemia: Status: Acute (2) NSTEMI (non-ST elevated myocardial infarction): Status: Acute (3) Acute hypoxic respiratory failure: Status: Acute (4) CKD (chronic kidney disease): Status: Acute (5) UGIB (upper gastrointestinal bleed): Status: Acute Plan This is her hospital day 11. GI consulted for likely UGIB. Ddx include stress ulcer vs PUD vs esophagitis. Hospital course reviewed. Pt with hypoxic resp failure overnight but on minimal vent settings. Has new onset cardiomyopathy, sedation being managed by ICU. Currently on precedex and propofol. Plan: - Agree with PRBC transfusion for goal Hb 7 - IV protonix 40 BID - Keep NPO - Urgent EGD to be arranged for today. Consent obtained from HCP Jose. Plan of care reviewed with the ICU provider. Thank you for allowing me to participate in her care. Please do not hesitate to reach out for any questions or concerns. Procedures Date of Service Date of Service: 01/30/25
[2025-01-30] MEDS: Albumin Human 25 % 100 ML 133.33 ML IV ×2 (12:26→12:30)
[2025-01-30] MEDS: Norepinephrine Bitartrate/D5W 8 MG/250 ML PLAST..BAG 6 MG IVCONT (12:40)
[2025-01-30] MEDS: 0.9 % Sodium Chloride 1,000 ML 999 ML IV (12:49)
[2025-01-30 13:29] LABS: INTERNATIONAL NORM RATIO 1.2 (0.9-1.1); Prothrombin Time 14.1 SEC (10.9-12.4)
--- NOTE | 2025-01-30 14:20 | MHC.CM.PN ---
Pt remains in ICU: required reintubation last night: low H&H: suspected GIB: pt will have an emergent EGD today after transfusion. CM to follow
--- NOTE | 2025-01-30 14:38 | P.OP_ITS ---
Operative Note Operative Note Date of Service: 01/30/25 Narrative: Procedure: Esophagogastroduodenoscopy Endoscopist: Beata Raymond MD Indication: UGIB Anesthesia Provider: Jose Orr MD (ICU) Anesthesia Type: GEA (precedex/propofol) ?? EGD Procedure:?? The procedure, indications, preparation and potential complications were reviewed with the patient's daughter, who indicated understanding and gave informed consent over the phone to proceed. A physical exam was performed. The endoscope was introduced through the mouth, and advanced to the Duodenal bulb. The mucosa was carefully examined on slow withdrawal of the endoscope. The patient tolerated the procedure well. There were no immediate complications.? ? EGD Findings:? * Esophagus:? Normal mucosa noted in the entire esophagus. The Z line was at 39 cm. * Stomach:? Old heme noted in the body of the stomach which was promptly suctioned. The pylorus was edematous. Retroflexion was performed in the cardia. * Duodenum:?There was a large 2.5 cm deep ulcer in the duodenal bulb obscuring most of the lumen. Scope could not traverse by this ulcer. It was not actively bleeding but had an adherent clot and visible vessel. 3 aliquots of 1 cc epinephrine were injected around the ulcer and the clot was attempted to be flushed off without much success. A resolution ultra clip was placed at the distal edge of this ulcer as a radio-opaque marker. ? EGD Impressions:? * Normal esophagus * Old heme in stomach * Large cratered duodenal bulb ulcer (Varghese IIa ) ?? Recommendations:?? * Switch to protonix drip * Keep pt NPO * IR consulted for embolization -- suspect GDA involvement based on location
[2025-01-30] MEDS: propofoL 200 MG/20 ML VIAL 100 MG IVPUSH (14:40)
[2025-01-30] MEDS: dexmedeTOMIDidine HCL/NS 400 MCG/100 ML INFUS..BTL 17.43 MCG IVCONT (14:41)
[2025-01-30] MEDS: Midazolam HCl 2 MG/2 ML VIAL 4 MG IVPUSH ×2 (16:20→17:29)
--- NOTE | 2025-01-30 16:20 | PC.NURSE ---
Assumed care at 0700 - patient remained intubated and sedated - sedation changed per JAN. Patient experienced two episodes of dark brown/melana liquid stool - positive for occult blood, negative cdiff. OGT placed - CXR completed - see report. OGT placed to continuous suction draining initial output of 1300cc dark brown/black liquid output - switched to low intermit suction vo dr curtis. H&H critical - 2uprbc ordered and administered per tar. Patient hypotensive requiring pressor support per JAN. GI consulted - upper endo @ bedside completed - additional sedation administered per JAN. Patient transferred to IR at 1540 without incident- bedside handoff provided to IR RNs Lizet & Rhonda. Family updated at bedside by this RN & MD. Care ongoing.
[2025-01-30] MEDS: Pantoprazole Sodium 40 MG/10 ML VIAL IVPUSH (17:46)
[2025-01-30 17:54] LABS: Glucose, Whole Blood 260 mg/dL (60-115)
[2025-01-30] MEDS: propofoL 1,000 MG/100 ML VIAL 6.97 MG IVCONT (19:21)
[2025-01-30 20:06] LABS: Mean Corpuscular HGB Conc 34.7 g/dl (31.0-35.0); Mean Corpuscular Hemoglobin 30.6 pg (27.0-33.0); Mean Platelet Volume 10.9 fL (9.4-12.3); NRBC Pct Auto 0.3 /100WBC (0.0-0.2); Platelet Count 223 X10*3/uL (160-400); Red Blood Count 2.16 X10*6/uL (4.20-5.50); Red Cell Distribution Width 13.9 % (11.0-16.0); White Blood Count 8.7 X10*3/uL (4.8-10.8)
[2025-01-30 20:15] LABS: Hemoglobin 6.6 g/dl (12.0-16.0)
[2025-01-30 20:17] LABS: Alanine Aminotransferase 15 U/L (0-31); Albumin Level 3.5 g/dL (3.5-5.0); Alkaline Phosphatase 63 U/L (39-117); Anion Gap 22 (12-20); Aspartate Amino Transferase 23 U/L (5-31); Bilirubin Total 0.7 mg/dL (0.0-1.0); Calcium 7.9 mg/dL (8.4-10.2); Carbon Dioxide 24 mmol/L (22-29); Chloride 107 mmol/L (96-108); Creatinine Clr Calc Pharmacy 10.1; Estimated Glomerular Filt Rate 10; Glucose Random 241 mg/dL (60-115); Potassium 3.2 mmol/L (3.3-5.1); Sodium 150 mmol/L (135-145); Total Protein 6.2 g/dL (6.5-8.0)
[2025-01-30 20:26] LABS: Blood Urea Nitrogen 127 mg/dL (9-16)
[2025-01-30] MEDS: Pantoprazole Sodium 80 MG in 0.9 % Sodium Chloride 80 ML 10 MG IV (20:47)
[2025-01-31] VITALS (43 sets, daily range): BP systolic 101–193; BP diastolic 51–81; PULSE 73–112; RESP 16–73; TEMP 34–39.3; O2SAT 97–100; BMI 18.0
[2025-01-31] MEDS: Furosemide 20 MG/2 ML VIAL IVPUSH (00:01)
[2025-01-31 00:02] LABS: Glucose, Whole Blood 169 mg/dL (60-115)
[2025-01-31] MEDS: 0.9 % Sodium Chloride Flush 3 ML SYRINGE IVFLUSH ×4 (00:02→20:33)
[2025-01-31] MEDS: Insulin Lispro 100 UNIT/ML 3 ML VIAL SUBCUT ×5 (00:37→23:20)
[2025-01-31 02:22] LABS: Hematocrit 21.1 % (37.0-47.0); Hemoglobin 7.4 g/dl (12.0-16.0)
[2025-01-31 04:30] LABS: VBG HCO3 24 mmol/L (22-26); VBG pCO2 27 mmHg; VBG pH 7.54 (7.32-7.43); VBG pO2 46 mmHg
[2025-01-31 04:31] LABS: Venous Blood Gas Refer to POC result
[2025-01-31] MEDS: Pantoprazole Sodium 80 MG in 0.9 % Sodium Chloride 80 ML 10 MG IV ×2 (04:31→14:25)
[2025-01-31 04:36] LABS: MANUAL DIFF FLAG NO
[2025-01-31 04:38] LABS: Basophils Absolute Auto 0.1 X10*3/uL (0.0-0.2); Basophils Percent Auto 0.6 % (0-2); Eosinophils Absolute Auto 0.3 X10*3/uL (0.0-0.4); Eosinophils Percent Auto 1.7 % (0-4); Imm Gran Abs Auto 0.58 X10*3/uL (0.00-0.03); Imm Gran Pct Auto 3.5 % (0.0-0.4); Mean Corpuscular HGB Conc 34.3 g/dl (31.0-35.0); Mean Corpuscular Hemoglobin 30.6 pg (27.0-33.0); Mean Corpuscular Volume 89.1 fL (80.0-98.0); Mean Platelet Volume 11.2 fL (9.4-12.3); Monocytes Absolute Auto 1.3 X10*3/uL (0.1-1.2); Monocytes Percent Auto 8.2 % (2-11); NRBC Pct Auto 0.3 /100WBC (0.0-0.2); Neutrophils Absolute Auto 13.1 x10*3/uL (2.0-8.3); Platelet Count 287 X10*3/uL (160-400); Red Blood Count 2.29 X10*6/uL (4.20-5.50); Red Cell Distribution Width 13.9 % (11.0-16.0); White Blood Count 16.4 X10*3/uL (4.8-10.8)
[2025-01-31 04:44] LABS: Hematocrit 20.4 % (37.0-47.0)
[2025-01-31 05:03] LABS: Alanine Aminotransferase 21 U/L (0-31); Albumin Level 3.2 g/dL (3.5-5.0); Alkaline Phosphatase 64 U/L (39-117); Anion Gap 23 (12-20); Aspartate Amino Transferase 27 U/L (5-31); Bilirubin Total 0.6 mg/dL (0.0-1.0); Calcium 7.9 mg/dL (8.4-10.2); Carbon Dioxide 19 mmol/L (22-29); Chloride 111 mmol/L (96-108); Creatinine Clr Calc Pharmacy 9.9; Estimated Glomerular Filt Rate 10; Glucose Random 261 mg/dL (60-115); Magnesium 2.4 mg/dL (1.6-2.6); Phosphorus 5.7 mg/dL (2.7-4.5); Potassium 3.9 mmol/L (3.3-5.1); Sodium 149 mmol/L (135-145); Total Protein 5.7 g/dL (6.5-8.0)
[2025-01-31 05:06] LABS: Blood Urea Nitrogen 126 mg/dL (9-16)
[2025-01-31] MEDS: Ampicillin Sodium/Sulbactam Na 3 GM in 0.9 % Sodium Chloride 100 ML IV (05:38)
[2025-01-31] MEDS: propofoL 1,000 MG/100 ML VIAL 6.97 MG IVCONT (05:41)
--- NOTE | 2025-01-31 07:18 | PC.NURSE ---
Assumed care at 1900, pt intubated and sedated. Precedex off d/t bradycardia, propofol gtt started for sedation - see JAN. OG tube to low intermittent suction per PA. Around 1999 - Hgb & Hct?6.6/19.0 - 1 unit PRBC ordered and administered. Protonix gtt started per JAN.? Pt had multiple?episodes of dark brown-bloody stool. Rectal tube placed. Tmax 101.1, PA made aware -tylenol ordered and to be administered - see JAN.?
[2025-01-31] MEDS: Acetaminophen 1,000 MG/100 ML PIGGYBACK 400 MG IV ×2 (07:57→13:52)
[2025-01-31] MEDS: Chlorhexidine Gluc Oral Rinse 15 ML MOUTHWASH BUCCAL ×3 (08:00→20:32)
--- NOTE | 2025-01-31 08:50 | P.PNCC_ITS ---
Subjective Subjective Date of Service: 01/31/25 Critical Care Time (minutes): 35 Comment: Continues to be on ventilator support this morning On propofol for sedation as she became bradycardic with precedex yesterday Received 1 unit of PRBC this morning as her hemoglobin was 7.0 Physical Exam 2 Vital Signs: Vital Signs: Last Vital Signs Temp 101.5 F H 01/31/25 08:00 Pulse 101 H 01/31/25 08:00 Resp 26 H 01/31/25 08:00 BP 137/61 01/31/25 08:00 Pulse Ox 97 01/31/25 08:00 O2 Del Method Mechanical Ventil ation 01/31/25 08:00 O2 Flow Rate 2 01/30/25 17:25 FiO2 21 01/31/25 08:15 BMI result Body Mass Index 18.0 General: Elderly lady in acute distress, ill appearing and tired appearing Nutritional Appearance: well nourished and overweight Eyes: appearance normal, both eyes and all related structures; Alignment and Position: alignment normal and position normal Neck: No lymphadenopathy, no thyromegaly Resp: bilateral air entry equal, occasional added sounds present Cardio: Regular rate, regular rhythm; Heart sounds: S1 normal heart sound present and S2 normal heart sound present GI: soft, nontender, no guarding, no hepatosplenomegaly : bladder normal to inspection, bladder normal to palpation, no renal angle tenderness Skin: no rashes or lesions noted and elasticity normal Neuro: No focal deficits, moves all extremities Objective Data Labs 01/31/25 04:23 01/31/25 04:23 Labs: Laboratory Results - last 24 hr 01/30/25 01/30/25 01/30/25 04:15 05:00 08:20 WBC RBC Hgb Hct MCV MCH MCHC RDW Plt Count MPV Immature Gran % (Auto) Neut % (Auto) Lymph % (Auto) Fre[place] % (Auto) Eos % (Auto) Baso % (Auto) Lymph # (Auto) [place] # (Auto) Eos # (Auto) Baso # (Auto) Abs Immat Gran (auto) Absolute Neuts (auto) Absolute Nucleated RBC Nucleated RBC % (auto) Smear Path Review SEE NOTE PT INR VBG pH VBG pCO2 VBG pO2 VBG HCO3 VBG O2 Saturation VBG Base Excess Sodium Potassium Chloride Carbon Dioxide Anion Gap BUN Creatinine Estim Creat Clear Calc Estimated GFR POC Glucose Random Glucose Calcium Phosphorus Magnesium Total Bilirubin AST ALT Alkaline Phosphatase Total Protein Albumin Stool Occult Blood POSITIVE C. difficile Tox B Gene NEGATIVE Blood Type A Positive Antibody Screen NEGATIVE Crossmatch See Detail 01/30/25 01/30/25 01/30/25 10:19 11:21 13:07 WBC 15.1 H RBC 2.02 L Hgb 6.1 L* Hct 17.9 L* MCV 88.6 MCH 30.2 MCHC 34.1 RDW 14.2 Plt Count 348 MPV 10.7 Immature Gran % (Auto) Neut % (Auto) Lymph % (Auto) Freestone % (Auto) Eos % (Auto) Baso % (Auto) Lymph # (Auto) Fre[place] # (Auto) Eos # (Auto) Baso # (Auto) Abs Immat Gran (auto) Absolute Neuts (auto) Absolute Nucleated RBC 0.030 H Nucleated RBC % (auto) 0.2 Smear Path Review PT 14.1 H INR 1.2 H VBG pH VBG pCO2 VBG pO2 VBG HCO3 VBG O2 Saturation VBG Base Excess Sodium Potassium Chloride Carbon Dioxide Anion Gap BUN Creatinine Estim Creat Clear Calc Estimated GFR POC Glucose 238 H Random Glucose Calcium Phosphorus Magnesium Total Bilirubin AST ALT Alkaline Phosphatase Total Protein Albumin Stool Occult Blood C. difficile Tox B Gene Blood Type Antibody Screen Crossmatch 01/30/25 01/30/25 01/30/25 17:51 19:54 23:57 WBC 8.7 RBC 2.16 L Hgb 6.6 L* Hct 19.0 L* MCV 88.0 MCH 30.6 MCHC 34.7 RDW 13.9 Plt Count 223 D MPV 10.9 Immature Gran % (Auto) Neut % (Auto) Lymph % (Auto) Freestone % (Auto) Eos % (Auto) Baso % (Auto) Lymph # (Auto) [place] # (Auto) Eos # (Auto) Baso # (Auto) Abs Immat Gran (auto) Absolute Neuts (auto) Absolute Nucleated RBC 0.030 H Nucleated RBC % (auto) 0.3 H Smear Path Review PT INR VBG pH VBG pCO2 VBG pO2 VBG HCO3 VBG O2 Saturation VBG Base Excess Sodium 150 H Potassium 3.2 L Chloride 107 Carbon Dioxide 24 Anion Gap 22 H BUN 127 H Creatinine 4.12 H* Estim Creat Clear Calc 10.1 Estimated GFR 10 POC Glucose 260 H 169 H Random Glucose 241 H Calcium 7.9 L D Phosphorus Magnesium Total Bilirubin 0.7 AST 23 ALT 15 Alkaline Phosphatase 63 Total Protein 6.2 L Albumin 3.5 Stool Occult Blood C. difficile Tox B Gene Blood Type Antibody Screen Crossmatch 01/31/25 01/31/25 01/31/25 02:16 04:23 04:27 WBC 16.4 H RBC 2.29 L Hgb 7.4 L 7.0 L* Hct 21.1 L 20.4 L* MCV 89.1 MCH 30.6 MCHC 34.3 RDW 13.9 Plt Count 287 D MPV 11.2 Immature Gran % (Auto) 3.5 H Neut % (Auto) 80.0 H Lymph % (Auto) 6.0 L Freestone % (Auto) 8.2 Eos % (Auto) 1.7 Baso % (Auto) 0.6 Lymph # (Auto) 1.0 L Freestone # (Auto) 1.3 H Eos # (Auto) 0.3 Baso # (Auto) 0.1 Abs Immat Gran (auto) 0.58 H Absolute Neuts (auto) 13.1 H Absolute Nucleated RBC 0.050 H Nucleated RBC % (auto) 0.3 H Smear Path Review PT INR VBG pH 7.54 H VBG pCO2 27 VBG pO2 46 VBG HCO3 24 VBG O2 Saturation Not Reportable VBG Base Excess 2.0 Sodium 149 H Potassium 3.9 D Chloride 111 H Carbon Dioxide 19 L Anion Gap 23 H BUN 126 H Creatinine 4.23 H* Estim Creat Clear Calc 9.9 Estimated GFR 10 POC Glucose Random Glucose 261 H Calcium 7.9 L Phosphorus 5.7 H Magnesium 2.4 Total Bilirubin 0.6 AST 27 ALT 21 Alkaline Phosphatase 64 Total Protein 5.7 L Albumin 3.2 L Stool Occult Blood C. difficile Tox B Gene Blood Type Antibody Screen Crossmatch Microbiology Microbiology Results: Microbiology 01/19/25 07:38 Blood - Venous Blood Culture - Final No growth after 5 days. 01/19/25 07:14 Blood - Venous Blood Culture - Final No growth after 5 days. Progress Note: A&P Assessment and plan (1) HTN (hypertension): Status: Acute (2) Heart failure: Status: Acute (3) Acute combined systolic and diastolic congestive heart failure: Status: Acute (4) CAD (coronary artery disease): Status: Acute (5) NSTEMI (non-ST elevated myocardial infarction): Status: Acute (6) UGIB (upper gastrointestinal bleed): Status: Acute (7) CKD (chronic kidney disease): Status: Acute (8) Acute kidney injury superimposed on CKD: Status: Acute (9) Hypernatremia: Status: Acute (10) Cerebrovascular accident: Status: Acute (11) Metabolic encephalopathy: Status: Acute (12) Acute hypoxic respiratory failure: Status: Acute (13) Pneumonia: Status: Acute (14) Respiratory failure: Status: Acute Plan Neuro: Acute encephalopathy possibly due to metabolic encephalopathy On propofol for sedation as she became bradycardic with precedex yesterday Close neurological status monitoring in the ICU every hour Cardiac: acute on chronic heart failure: EF 29%, grade 2 diastolic dysfunction, moderate TR We will restart carvedilol, hydralazine and Isordil as her blood pressures are better today paroxysmal atrial fibrillation: one episode 15 minutes on 01/29/2025 only on prophylactic heparin, we will withhold on therapeutic anticoagulation given massive upper GI bleed and still has a duodenal ulcer Respiratory: Had to be intubated on 01/29/2025 due to respiratory decompensation due to respiratory fatigue On ventilator support this morning PRVC mode FiO2: 21% PEEP:5 TV:400 RR:20, we will place her on pressor support trials and we will get the weaning parameters Ventilator management bundle Head end elevation, chlorhexidine oral care, daily spontaneous awakening trials, daily spontaneous breathing trials, bronchodilators as needed GI: Patient had large volume upper GI coffee ground emesis which was suctioned through OG tube Pantoprazole IV 80 mg start and 40 mg IV b.i.d. was started, GI was consulted for an emergent endoscope Emergent upper GI endoscopy showed a large duodenal ulcer which was clipped. 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 Hemoglobin 7.0 this morning INR 1.2 Endocrine: Blood sugars under control Sliding scale insulin as needed Infectious disease: on empiric ampicillin sulbactam for a possible superadded pneumonia Musculoskeletal: Decubitus ulcer prevention protocol Lines: peripheral Prophylaxis: heparin withheld, SCD, pantoprazole Quality Stroke Does the patient have a stroke diagnosis?: No VTE Prior VTE?: No VTE Risk Level:: Medical - moderate - high VTE Device Contraindication: N/A - Device Ordered VTE Drug Contraindication: N/A - Med Ordered
[2025-01-31 11:31] LABS: Mean Corpuscular HGB Conc 35.3 g/dl (31.0-35.0); Mean Corpuscular Hemoglobin 31.9 pg (27.0-33.0); Mean Corpuscular Volume 90.3 fL (80.0-98.0); Mean Platelet Volume 11.3 fL (9.4-12.3); NRBC Pct Auto 0.8 /100WBC (0.0-0.2); Platelet Count 312 X10*3/uL (160-400); Red Blood Count 2.07 X10*6/uL (4.20-5.50); Red Cell Distribution Width 14.5 % (11.0-16.0); White Blood Count 18.6 X10*3/uL (4.8-10.8)
[2025-01-31 11:36] LABS: Hemoglobin 6.6 g/dl (12.0-16.0)
[2025-01-31 11:37] LABS: Hematocrit 18.7 % (37.0-47.0)
[2025-01-31 11:57] LABS: Glucose, Whole Blood 291 mg/dL (60-115)
[2025-01-31] MEDS: dexmedeTOMIDidine HCL/NS 400 MCG/100 ML INFUS..BTL 13.4 MCG IVCONT (12:16)
[2025-01-31] MEDS: hydrALAZINE HCl 50 MG TABLET PO ×3 (12:17→20:32)
[2025-01-31] MEDS: Isosorbide Dinitrate 20 MG TABLET PO ×2 (12:18→18:08)
--- NOTE | 2025-01-31 12:40 | MHC.CLN ---
PT IS INTUBATED AND SEDATED PT WITH OGT TO SUCTION AND UNABLE TO RECEIVE TF FOR NUTRITION SUPPORT DISCUSSED AT ROUNDS WITH MD-PLAN TO START PPN TODAY R/T PROLONGED NPO STATUS DISCUSSED WITH PHARMACY RECOMMEND PPN AT 45ML/HR TO PROVIDE 551KCALS, 108G PROTEIN, 46G PROTEIN REPLETE LYTES NEEDED SEE ALSO FULL CLINICAL NUTRITION ASSESSMENT
--- NOTE | 2025-01-31 13:07 | MHC.SLORD ---
Speech Language Pathology Order Status: Pt intubated, ST to follow as indicated.
--- NOTE | 2025-01-31 13:14 | P.PNNP_ITS ---
Subjective Subjective Date of Service: 01/31/25 Interval history: Events noted. All recent data reviewed. Physical Exam 2 Vital Signs: Vital Signs: Last Vital Signs Temp 102.2 F H 01/31/25 13:07 Pulse 109 H 01/31/25 13:07 Resp 34 H 01/31/25 13:07 BP 101/51 L 01/31/25 13:07 Pulse Ox 98 01/31/25 12:00 O2 Del Method Mechanical Ventil ation 01/31/25 12:00 O2 Flow Rate 2 01/30/25 17:25 FiO2 21 01/31/25 12:00 BMI result Body Mass Index 18.0 Const: General: no acute distress Resp: Auscultation: diminished lung sounds Cardio: Rate: regular rate GI: Palpation (GI): Soft to palpation Neuro: Other: Intubated and sedated Objective Data Labs 01/31/25 11:04 01/31/25 04:23 Labs: Laboratory Results - last 24 hr 01/30/25 01/30/25 01/30/25 04:15 05:00 13:07 WBC RBC Hgb Hct MCV MCH MCHC RDW Plt Count MPV Immature Gran % (Auto) Neut % (Auto) Lymph % (Auto) [place] % (Auto) Eos % (Auto) Baso % (Auto) Lymph # (Auto) [place] # (Auto) Eos # (Auto) Baso # (Auto) Abs Immat Gran (auto) Absolute Neuts (auto) Absolute Nucleated RBC Nucleated RBC % (auto) Smear Path Review SEE NOTE PT 14.1 H INR 1.2 H VBG pH VBG pCO2 VBG pO2 VBG HCO3 VBG O2 Saturation VBG Base Excess Sodium Potassium Chloride Carbon Dioxide Anion Gap BUN Creatinine Estim Creat Clear Calc Estimated GFR POC Glucose Random Glucose Calcium Phosphorus Magnesium Total Bilirubin AST ALT Alkaline Phosphatase Total Protein Albumin Blood Type A Positive Antibody Screen NEGATIVE Crossmatch See Detail 01/30/25 01/30/25 01/30/25 17:51 19:54 23:57 WBC 8.7 RBC 2.16 L Hgb 6.6 L* Hct 19.0 L* MCV 88.0 MCH 30.6 MCHC 34.7 RDW 13.9 Plt Count 223 D MPV 10.9 Immature Gran % (Auto) Neut % (Auto) Lymph % (Auto) [place] % (Auto) Eos % (Auto) Baso % (Auto) Lymph # (Auto) [place] # (Auto) Eos # (Auto) Baso # (Auto) Abs Immat Gran (auto) Absolute Neuts (auto) Absolute Nucleated RBC 0.030 H Nucleated RBC % (auto) 0.3 H Smear Path Review PT INR VBG pH VBG pCO2 VBG pO2 VBG HCO3 VBG O2 Saturation VBG Base Excess Sodium 150 H Potassium 3.2 L Chloride 107 Carbon Dioxide 24 Anion Gap 22 H BUN 127 H Creatinine 4.12 H* Estim Creat Clear Calc 10.1 Estimated GFR 10 POC Glucose 260 H 169 H Random Glucose 241 H Calcium 7.9 L D Phosphorus Magnesium Total Bilirubin 0.7 AST 23 ALT 15 Alkaline Phosphatase 63 Total Protein 6.2 L Albumin 3.5 Blood Type Antibody Screen Crossmatch 01/31/25 01/31/25 01/31/25 02:16 04:23 04:27 WBC 16.4 H RBC 2.29 L Hgb 7.4 L 7.0 L* Hct 21.1 L 20.4 L* MCV 89.1 MCH 30.6 MCHC 34.3 RDW 13.9 Plt Count 287 D MPV 11.2 Immature Gran % (Auto) 3.5 H Neut % (Auto) 80.0 H Lymph % (Auto) 6.0 L [place] % (Auto) 8.2 Eos % (Auto) 1.7 Baso % (Auto) 0.6 Lymph # (Auto) 1.0 L [place] # (Auto) 1.3 H Eos # (Auto) 0.3 Baso # (Auto) 0.1 Abs Immat Gran (auto) 0.58 H Absolute Neuts (auto) 13.1 H Absolute Nucleated RBC 0.050 H Nucleated RBC % (auto) 0.3 H Smear Path Review PT INR VBG pH 7.54 H VBG pCO2 27 VBG pO2 46 VBG HCO3 24 VBG O2 Saturation Not Reportable VBG Base Excess 2.0 Sodium 149 H Potassium 3.9 D Chloride 111 H Carbon Dioxide 19 L Anion Gap 23 H BUN 126 H Creatinine 4.23 H* Estim Creat Clear Calc 9.9 Estimated GFR 10 POC Glucose Random Glucose 261 H Calcium 7.9 L Phosphorus 5.7 H Magnesium 2.4 Total Bilirubin 0.6 AST 27 ALT 21 Alkaline Phosphatase 64 Total Protein 5.7 L Albumin 3.2 L Blood Type Antibody Screen Crossmatch 01/31/25 01/31/25 11:04 11:49 WBC 18.6 H RBC 2.07 L Hgb 6.6 L* Hct 18.7 L* MCV 90.3 MCH 31.9 MCHC 35.3 H RDW 14.5 Plt Count 312 MPV 11.3 Immature Gran % (Auto) Neut % (Auto) Lymph % (Auto) [place] % (Auto) Eos % (Auto) Baso % (Auto) Lymph # (Auto) [place] # (Auto) Eos # (Auto) Baso # (Auto) Abs Immat Gran (auto) Absolute Neuts (auto) Absolute Nucleated RBC 0.140 H Nucleated RBC % (auto) 0.8 H Smear Path Review PT INR VBG pH VBG pCO2 VBG pO2 VBG HCO3 VBG O2 Saturation VBG Base Excess Sodium Potassium Chloride Carbon Dioxide Anion Gap BUN Creatinine Estim Creat Clear Calc Estimated GFR POC Glucose 291 H Random Glucose Calcium Phosphorus Magnesium Total Bilirubin AST ALT Alkaline Phosphatase Total Protein Albumin Blood Type Antibody Screen Crossmatch Microbiology Microbiology Results: Microbiology 01/19/25 07:38 Blood - Venous Blood Culture - Final No growth after 5 days. 01/19/25 07:14 Blood - Venous Blood Culture - Final No growth after 5 days. 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 Serum creatinine stable ; UO fair; Hold HD today ; Continue rest of current medication regimen Labs AM; Shall F/U closely Progress Note: Quality Stroke Does the patient have a stroke diagnosis?: No
[2025-01-31] MEDS: propofoL 1,000 MG/100 ML VIAL 10.46 MG IVCONT (13:44)
--- NOTE | 2025-01-31 14:27 | MHC.CM.PN ---
Pt intubated with many abnormal lab values: on IV ATB, received one unit PRBC today: goals of care are to reduce sedation and attempt to wake for extubation ability. CM to follow
[2025-01-31 16:58] LABS: Glucose, Whole Blood 290 mg/dL (60-115)
--- NOTE | 2025-01-31 17:29 | HO.POSTANES ---
Post Anesthesia Evaluation Post Anesthesia Evaluation Date of Service: 01/31/25 Vital Signs: Vital Signs Temp Pulse Resp BP Pulse Ox O2 Del Method FiO2 01/31/25 17:00 101 F H 103 H 28 H 193/81 H 99 Mechanical Ventilation 01/31/25 16:32 101.7 F H 101 H 27 H 155/71 H 01/31/25 16:00 102.6 F H 104 H 29 H 133/64 98 Mechanical Ventilation 01/31/25 15:09 21 01/31/25 15:00 102.4 F H 105 H 27 H 133/64 98 Mechanical Ventilation 01/31/25 14:00 102.7 F H 105 H 22 H 121/61 98 Mechanical Ventilation 01/31/25 13:30 102.6 F H 105 H 33 H 114/57 L 01/31/25 13:15 102.2 F H 107 H 36 H 101/51 L 01/31/25 13:07 102.2 F H 109 H 34 H 101/51 L 01/31/25 13:00 102.0 F H 108 H 23 H 101/51 L 98 Mechanical Ventilation 01/31/25 12:18 149/65 H 01/31/25 12:17 148/65 H 01/31/25 12:00 98 01/31/25 12:00 101.7 F H 112 H 35 H 148/65 H 98 Mechanical Ventilation 01/31/25 11:27 21 01/31/25 11:00 101.1 F H 107 H 28 H 155/70 H 98 Mechanical Ventilation 01/31/25 10:00 100.8 F H 104 H 25 H 162/69 H 98 Mechanical Ventilation 01/31/25 09:00 100.8 F H 100 25 H 157/70 H 98 Mechanical Ventilation 01/31/25 08:15 21 01/31/25 08:00 98 01/31/25 08:00 101.5 F H 101 H 26 H 137/61 97 Mechanical Ventilation 01/31/25 07:00 101.3 F H 104 H 28 H 157/69 H 98 Mechanical Ventilation 01/31/25 06:00 100.9 F H 101 H 23 H 152/67 H 98 Mechanical Ventilation 21 Anesthesia: General Mental Status: Awake Pain Control: Satisfactory Nausea/Vomiting: None Hydration: Adequate Anesthesia-Related Issues: No Anes. Related Issues
[2025-01-31 17:48] LABS: Hematocrit 23.8 % (37.0-47.0); Hemoglobin 8.4 g/dl (12.0-16.0); Mean Corpuscular HGB Conc 35.3 g/dl (31.0-35.0); Mean Corpuscular Hemoglobin 31.1 pg (27.0-33.0); Mean Corpuscular Volume 88.1 fL (80.0-98.0); Mean Platelet Volume 10.7 fL (9.4-12.3); Platelet Count 286 X10*3/uL (160-400); Red Cell Distribution Width 15.5 % (11.0-16.0); White Blood Count 18.9 X10*3/uL (4.8-10.8)
[2025-01-31] MEDS: Linezolid/D5W 600 MG/300 ML PIGGYBACK 300 MG IV (18:40)
[2025-01-31] MEDS: Piperacillin Sodium/Tazobactam 2.25 GM in 0.9 % Sodium Chloride 50 ML IV (18:40)
--- NOTE | 2025-01-31 19:10 | PC.NURSE ---
Assumed care of patient 0[address] system in place with arben/ caitie red output. Patent and functioning well. MD notified, plan to recheck H+H Q6HR. 11:30 AM: H+H 6.6/18.7. MD notified, see critical result reporting. New order for 1 unit RBCs transfused. 17:42 PM: H+H recheck 8.4/23.8. No new orders at this time. Pt temperature max 102.7 F. IV tylenol given with little effect. Per MD place on cooling blanket. Pt provided cool bed bath and cooling blanket added. Temp improved to 99.9F High fall precautions in place. Pt turned Q2HR with wedges. Isotour bed in use.
[2025-01-31] MEDS: carvediloL 25 MG TABLET PO (20:32)
[2025-01-31] MEDS: propofoL 1,000 MG/100 ML VIAL 13.94 MG IVCONT (21:06)
[2025-01-31] MEDS: Parenteral Nutrition 1,080 ML 45 ML IV (21:08)
[2025-01-31 22:50] LABS: Mean Corpuscular HGB Conc 35.4 g/dl (31.0-35.0); Mean Corpuscular Hemoglobin 31.1 pg (27.0-33.0); Mean Corpuscular Volume 87.8 fL (80.0-98.0); Mean Platelet Volume 11.2 fL (9.4-12.3); Platelet Count 241 X10*3/uL (160-400); Red Blood Count 2.22 X10*6/uL (4.20-5.50); Red Cell Distribution Width 15.9 % (11.0-16.0); White Blood Count 14.5 X10*3/uL (4.8-10.8)
[2025-01-31 23:01] LABS: Hematocrit 19.5 % (37.0-47.0); Hemoglobin 6.9 g/dl (12.0-16.0)
[2025-01-31 23:14] LABS: Glucose, Whole Blood 332 mg/dL (60-115)
[2025-02-01] VITALS (42 sets, daily range): BP systolic 120–170; BP diastolic 50–68; PULSE 63–83; RESP 16–38; TEMP 34.7–37.7; O2SAT 95–100; BMI 18.9
[2025-02-01] MEDS: Pantoprazole Sodium 80 MG in 0.9 % Sodium Chloride 80 ML 10 MG IV ×3 (00:27→20:06)
[2025-02-01] MEDS: Piperacillin Sodium/Tazobactam 2.25 GM in 0.9 % Sodium Chloride 50 ML IV ×4 (00:27→18:09)
[2025-02-01] MEDS: propofoL 1,000 MG/100 ML VIAL 13.94 MG IVCONT ×2 (01:52→07:51)
[2025-02-01 04:29] LABS: VBG Base Excess -3.3 mmol/L; VBG HCO3 19 mmol/L (22-26); VBG pCO2 25 mmHg; VBG pH 7.47 (7.32-7.43); VBG pO2 56 mmHg
[2025-02-01 04:39] LABS: Hematocrit 22.9 % (37.0-47.0); Mean Corpuscular HGB Conc 34.9 g/dl (31.0-35.0); Mean Corpuscular Hemoglobin 30.8 pg (27.0-33.0); Mean Corpuscular Volume 88.1 fL (80.0-98.0); Mean Platelet Volume 11.2 fL (9.4-12.3); NRBC Pct Auto 1.2 /100WBC (0.0-0.2); Platelet Count 220 X10*3/uL (160-400); Red Cell Distribution Width 15.5 % (11.0-16.0); White Blood Count 13.8 X10*3/uL (4.8-10.8)
[2025-02-01 04:45] LABS: Venous Blood Gas Refer to POC result
[2025-02-01 04:59] LABS: Band Neutrophils Percent 3 % (3-5); Eosinophils Absolute Manual 0.1 X10*3/uL (0.0-0.4); Eosinophils Percent Manual 1 % (0-4); Lymphocytes Absolute Manual 0.3 X10*3/uL (1.2-4.9); Lymphocytes Percent Manual 2 % (20-40); Metamyelocytes Absolute 0.4 X10*3/uL; Metamyelocytes Percent 3 %; Monocytes Absolute Manual 0.8 X10*3/uL (0.1-1.2); Monocytes Percent Manual 6 % (2-11); Myelocytes Absolute 0.1 X10*/uL; Myelocytes Percent 1 %; Neutrophils Percent Manual 84 % (45-73)
[2025-02-01 05:00] LABS: RBC Morphology NOTED
[2025-02-01] MEDS: Levothyroxine Sodium 125 MCG TABLET PO (05:00)
[2025-02-01] MEDS: Linezolid/D5W 600 MG/300 ML PIGGYBACK 300 MG IV ×2 (05:00→17:06)
[2025-02-01 05:01] LABS: Burr Cells 1+ (0-2) /OIF; Platelet Estimate NORMAL (NORMAL); Platelet Morphology Comment NORMAL; Polychromasia 1+ (0-2) /OIF; Tear Drop Cells 1+ (0-2) /OIF
[2025-02-01 05:05] LABS: Anion Gap 23 (12-20); Calcium 7.9 mg/dL (8.4-10.2); Carbon Dioxide 18 mmol/L (22-29); Chloride 109 mmol/L (96-108); Creatinine Clr Calc Pharmacy 6.7; Estimated Glomerular Filt Rate 7; Glucose Random 345 mg/dL (60-115); Magnesium 2.5 mg/dL (1.6-2.6); Phosphorus 6.3 mg/dL (2.7-4.5); Potassium 3.8 mmol/L (3.3-5.1); Sodium 146 mmol/L (135-145); Triglycerides 569 mg/dL (<150)
[2025-02-01 05:12] LABS: Blood Urea Nitrogen 169 mg/dL (9-16)
[2025-02-01] MEDS: Insulin Lispro 100 UNIT/ML 3 ML VIAL SUBCUT ×4 (05:25→23:46)
--- NOTE | 2025-02-01 06:18 | PC.NURSE ---
Assumed care at 1900, pt intubated and sedated. Propofol titrated for vent synchrony - see MAR. Core temps 96.9 - 99.5 F- cooling blanket?turned off. Around 2240 Hgb &?Hct 6.9/19.5. 1 unit PRBC ordered and administered.? PPN started per JAN.? Urine output 0-30 ml/hr. Rectal tube patent with small amount of dark brown/maroon stool.
[2025-02-01] MEDS: 0.9 % Sodium Chloride Flush 3 ML SYRINGE IVFLUSH ×3 (07:09→23:47)
[2025-02-01] MEDS: Chlorhexidine Gluc Oral Rinse 15 ML MOUTHWASH BUCCAL ×3 (08:00→20:00)
[2025-02-01] MEDS: hydrALAZINE HCl 50 MG TABLET PO ×4 (08:00→20:00)
[2025-02-01] MEDS: carvediloL 25 MG TABLET PO ×2 (08:00→20:00)
[2025-02-01] MEDS: Isosorbide Dinitrate 20 MG TABLET PO ×3 (08:00→17:03)
--- NOTE | 2025-02-01 09:15 | PM.CCPN ---
Subjective Subjective Date of Service: 02/01/25 Critical Care Time (minutes): 35 Comment: Continues to be on ventilator support this morning On propofol for sedation No further drop in hemoglobin, 8.0 this morning Physical Exam Vital Signs: Vital Signs: Last Vital Signs Temp 99.7 F 02/01/25 08:00 Pulse 77 02/01/25 08:00 Resp 22 H 02/01/25 08:00 BP 126/55 L 02/01/25 08:00 Pulse Ox 97 02/01/25 08:00 O2 Del Method Mechanical Ventil ation 02/01/25 08:00 O2 Flow Rate 2 01/30/25 17:25 FiO2 21 02/01/25 08:00 BMI result Body Mass Index 18.9 General: Elderly lady in somewhat acute distress, ill appearing and tired appearing Nutritional Appearance: well nourished and overweight Eyes: appearance normal, both eyes and all related structures; Alignment and Position: alignment normal and position normal Neck: No lymphadenopathy, no thyromegaly Resp: bilateral air entry equal, occasional added sounds present Cardio: Regular rate, regular rhythm; Heart sounds: S1 normal heart sound present and S2 normal heart sound present GI: soft, nontender, no guarding, no hepatosplenomegaly : bladder normal to inspection, bladder normal to palpation, no renal angle tenderness Skin: no rashes or lesions noted and elasticity normal Neuro: No focal deficit, sedated Objective Data Labs 02/01/25 04:15 02/01/25 04:16 Labs: Laboratory Results - last 24 hr 01/30/25 01/31/25 01/31/25 05:00 11:04 11:49 WBC 18.6 H RBC 2.07 L Hgb 6.6 L* Hct 18.7 L* MCV 90.3 MCH 31.9 MCHC 35.3 H RDW 14.5 Plt Count 312 MPV 11.3 Immature Gran % (Auto) Neut % (Auto) Lymph % (Auto) [place] % (Auto) Eos % (Auto) Baso % (Auto) Lymph # (Auto) [place] # (Auto) Eos # (Auto) Baso # (Auto) Abs Immat Gran (auto) Absolute Neuts (auto) Absolute Nucleated RBC 0.140 H Nucleated RBC % (auto) 0.8 H Neutrophils % (Manual) Band Neutrophils % Lymphocytes % (Manual) Monocytes % (Manual) Eosinophils % (Manual) Metamyelocytes % Myelocytes % Abs Neuts (Manual) Lymphocytes # (Manual) Monocytes # (Manual) Eosinophils # (Manual) Metamyelocytes # Myelocytes # Platelet Estimate Plt Morphology Comment RBC Morphology Polychromasia Tear Drop Cells [place] Cells VBG pH VBG pCO2 VBG pO2 VBG HCO3 VBG O2 Saturation VBG Base Excess Sodium Potassium Chloride Carbon Dioxide Anion Gap BUN Creatinine Estim Creat Clear Calc Estimated GFR POC Glucose 291 H Random Glucose Calcium Phosphorus Magnesium Triglycerides Blood Type A Positive Antibody Screen NEGATIVE Crossmatch See Detail 01/31/25 01/31/25 01/31/25 16:52 17:42 22:41 WBC 18.9 H 14.5 H RBC 2.70 L D 2.22 L Hgb 8.4 L D 6.9 L* Hct 23.8 L D 19.5 L* MCV 88.1 87.8 MCH 31.1 31.1 MCHC 35.3 H 35.4 H RDW 15.5 15.9 Plt Count 286 241 MPV 10.7 11.2 Immature Gran % (Auto) Neut % (Auto) Lymph % (Auto) [place] % (Auto) Eos % (Auto) Baso % (Auto) Lymph # (Auto) [place] # (Auto) Eos # (Auto) Baso # (Auto) Abs Immat Gran (auto) Absolute Neuts (auto) Absolute Nucleated RBC 0.190 H 0.140 H Nucleated RBC % (auto) 1.0 H 1.0 H Neutrophils % (Manual) Band Neutrophils % Lymphocytes % (Manual) Monocytes % (Manual) Eosinophils % (Manual) Metamyelocytes % Myelocytes % Abs Neuts (Manual) Lymphocytes # (Manual) Monocytes # (Manual) Eosinophils # (Manual) Metamyelocytes # Myelocytes # Platelet Estimate Plt Morphology Comment RBC Morphology Polychromasia Tear Drop Cells [place] Cells VBG pH VBG pCO2 VBG pO2 VBG HCO3 VBG O2 Saturation VBG Base Excess Sodium Potassium Chloride Carbon Dioxide Anion Gap BUN Creatinine Estim Creat Clear Calc Estimated GFR POC Glucose 290 H Random Glucose Calcium Phosphorus Magnesium Triglycerides Blood Type Antibody Screen Crossmatch 01/31/25 02/01/25 02/01/25 23:11 04:15 04:16 WBC 13.8 H RBC 2.60 L Hgb 8.0 L Hct 22.9 L MCV 88.1 MCH 30.8 MCHC 34.9 RDW 15.5 Plt Count 220 MPV 11.2 Immature Gran % (Auto) Cancelled Neut % (Auto) Cancelled Lymph % (Auto) Cancelled [place] % (Auto) Cancelled Eos % (Auto) Cancelled Baso % (Auto) Cancelled Lymph # (Auto) Cancelled [place] # (Auto) Cancelled Eos # (Auto) Cancelled Baso # (Auto) Cancelled Abs Immat Gran (auto) Cancelled Absolute Neuts (auto) Cancelled Absolute Nucleated RBC 0.160 H Nucleated RBC % (auto) 1.2 H Neutrophils % (Manual) 84 H Band Neutrophils % 3 Lymphocytes % (Manual) 2 L Monocytes % (Manual) 6 Eosinophils % (Manual) 1 Metamyelocytes % 3 Myelocytes % 1 Abs Neuts (Manual) 12.0 H Lymphocytes # (Manual) 0.3 L Monocytes # (Manual) 0.8 Eosinophils # (Manual) 0.1 Metamyelocytes # 0.4 Myelocytes # 0.1 Platelet Estimate NORMAL Plt Morphology Comment NORMAL RBC Morphology NOTED Polychromasia 1+ (0-2) Tear Drop Cells 1+ (0-2) [place] Cells 1+ (0-2) VBG pH VBG pCO2 VBG pO2 VBG HCO3 VBG O2 Saturation VBG Base Excess Sodium 146 H Potassium 3.8 Chloride 109 H Carbon Dioxide 18 L Anion Gap 23 H BUN 169 H Creatinine 5.74 H* Estim Creat Clear Calc 6.7 Estimated GFR 7 POC Glucose 332 H Random Glucose 345 H Calcium 7.9 L Phosphorus 6.3 H Magnesium 2.5 Triglycerides 569 H Blood Type Antibody Screen Crossmatch 02/01/25 04:24 WBC RBC Hgb Hct MCV MCH MCHC RDW Plt Count MPV Immature Gran % (Auto) Neut % (Auto) Lymph % (Auto) [place] % (Auto) Eos % (Auto) Baso % (Auto) Lymph # (Auto) [place] # (Auto) Eos # (Auto) Baso # (Auto) Abs Immat Gran (auto) Absolute Neuts (auto) Absolute Nucleated RBC Nucleated RBC % (auto) Neutrophils % (Manual) Band Neutrophils % Lymphocytes % (Manual) Monocytes % (Manual) Eosinophils % (Manual) Metamyelocytes % Myelocytes % Abs Neuts (Manual) Lymphocytes # (Manual) Monocytes # (Manual) Eosinophils # (Manual) Metamyelocytes # Myelocytes # Platelet Estimate Plt Morphology Comment RBC Morphology Polychromasia Tear Drop Cells [place] Cells VBG pH 7.47 H VBG pCO2 25 VBG pO2 56 VBG HCO3 19 L VBG O2 Saturation 86.0 VBG Base Excess -3.3 Sodium Potassium Chloride Carbon Dioxide Anion Gap BUN Creatinine Estim Creat Clear Calc Estimated GFR POC Glucose Random Glucose Calcium Phosphorus Magnesium Triglycerides Blood Type Antibody Screen Crossmatch Microbiology Microbiology Results: Microbiology 01/19/25 07:38 Blood - Venous Blood Culture - Final No growth after 5 days. 01/19/25 07:14 Blood - Venous Blood Culture - Final No growth after 5 days. Progress Note: A&P Assessment and plan (1) HTN (hypertension): Status: Acute (2) Acute kidney injury superimposed on CKD: Status: Acute (3) Acute hypoxic respiratory failure: Status: Acute (4) Pulmonary edema: Status: Acute (5) Hypernatremia: Status: Acute (6) UGIB (upper gastrointestinal bleed): Status: Acute Plan Neuro: Acute encephalopathy possibly due to metabolic encephalopathy On propofol for sedation as she became bradycardic with precedex, will turn off propofol for weaning from ventilator Close neurological status monitoring in the ICU every hour Cardiac: acute on chronic heart failure: EF 29%, grade 2 diastolic dysfunction, moderate TR continue carvedilol, hydralazine and Isordil as her blood pressures are better today paroxysmal atrial fibrillation: one episode 15 minutes on 01/29/2025 only on prophylactic heparin, we will withhold on therapeutic anticoagulation given massive upper GI bleed and still has a duodenal ulcer Respiratory: Had to be intubated on 01/29/2025 due to respiratory decompensation due to respiratory fatigue On ventilator support this morning PRVC mode FiO2: 21% PEEP:5 TV:400 RR:20, we will place her on pressor support trials and we will get the weaning parameters Ventilator management bundle Head end elevation, chlorhexidine oral care, daily spontaneous awakening trials, daily spontaneous breathing trials, bronchodilators as needed GI: Patient had large volume upper GI coffee ground emesis which was suctioned through OG tube Pantoprazole IV 80 mg start and 40 mg IV b.i.d. was started, GI was consulted for an emergent endoscope Emergent upper GI endoscopy showed a large duodenal ulcer which was clipped. 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 Hemoglobin 8.0 this morning, stable no further INR 1.2 Endocrine: Blood sugars under control Sliding scale insulin as needed Infectious disease: In view of fevers antibiotics has been escalated to Zosyn and Zyvox We will send blood cultures Musculoskeletal: Decubitus ulcer prevention protocol Lines: peripheral Prophylaxis: heparin withheld, SCD, pantoprazole Quality Stroke Does the patient have a stroke diagnosis?: No VTE Prior VTE?: No VTE Risk Level:: Medical - moderate - high VTE Device Contraindication: N/A - Device Ordered VTE Drug Contraindication: N/A - Med Ordered
--- NOTE | 2025-02-01 10:23 | MHC.CLN ---
F/U PT REMAINS INTUBATED AND SEDATED PT CONTINUES WITH OGT TO SUCTION AND UNABLE TO RECEIVE TF FOR NUTRITION SUPPORT DISCUSSED AT ROUNDS WITH -BRYANNA TODAY DISCUSSED WITH PHARMACY RECOMMEND INCREASING PPN TO 65ML/HR TO PROVIDE 796KCALS, 156G PROTEIN, 66G PROTEIN HOLD LIPIDS NOTED TRIGS 569 REPLETE LYTES NEEDED
[2025-02-01 10:47] LABS: Albumin Level 2.9 g/dL (3.5-5.0)
--- NOTE | 2025-02-01 10:52 | W.PM.CCHP ---
Procedures Date of Service Date of Service: 02/01/25 Bronchoscopy Consent for Procedure: Emergent-no informed consent obtained Indication: pulmonary toilet Procedure: As well says bronchoscope was passed through the ET tube there was difficulty suctioning the patient. Route: endotracheal tube Sedation/Analgesia: fentanyl Monitor: EKG and pulse oximetry Findings: Some secretions were noted in the bottom of the ET tube which was suctioned, airways looked clean without any obstruction or erythema. A small amount of thin white secretions were noted in left lower lobe bronchi Complications: none
--- NOTE | 2025-02-01 10:57 | P.PNNP_ITS ---
Subjective Subjective Date of Service: 02/01/25 Interval history: Events noted. All recent data reviewed. Status post bronchoscopy Physical Exam 2 Vital Signs: Vital Signs: Last Vital Signs Temp 99.9 F 02/01/25 10:00 Pulse 67 02/01/25 10:00 Resp 21 H 02/01/25 10:00 BP 143/53 H 02/01/25 10:00 Pulse Ox 97 02/01/25 10:00 O2 Del Method Mechanical Ventil ation 02/01/25 10:00 O2 Flow Rate 2 01/30/25 17:25 FiO2 21 02/01/25 10:00 BMI result Body Mass Index 18.9 Const: General: no acute distress and ill appearing Eyes: EOM: EOMs intact bilaterally Neck: Neck: Yes supple Resp: Auscultation: clear to auscultation bilaterally and diminished lung sounds Cardio: Palpation: no palpable S3 Rate: regular rate Heart sounds: no rubs GI: Palpation (GI): Soft to palpation Auscultation: normal bowel sounds Neuro: Other: Intubated and sedated General: moves all extremities Motor exam (neuro): no asterixis Objective Data Labs 02/05/25 04:45 02/05/25 04:45 Labs: Laboratory Results - last 24 hr 01/30/25 01/31/25 01/31/25 05:00 11:04 11:49 WBC 18.6 H RBC 2.07 L Hgb 6.6 L* Hct 18.7 L* MCV 90.3 MCH 31.9 MCHC 35.3 H RDW 14.5 Plt Count 312 MPV 11.3 Immature Gran % (Auto) Neut % (Auto) Lymph % (Auto) [place] % (Auto) Eos % (Auto) Baso % (Auto) Lymph # (Auto) [place] # (Auto) Eos # (Auto) Baso # (Auto) Abs Immat Gran (auto) Absolute Neuts (auto) Absolute Nucleated RBC 0.140 H Nucleated RBC % (auto) 0.8 H Neutrophils % (Manual) Band Neutrophils % Lymphocytes % (Manual) Monocytes % (Manual) Eosinophils % (Manual) Metamyelocytes % Myelocytes % Abs Neuts (Manual) Lymphocytes # (Manual) Monocytes # (Manual) Eosinophils # (Manual) Metamyelocytes # Myelocytes # Platelet Estimate Plt Morphology Comment RBC Morphology Polychromasia Tear Drop Cells [place] Cells VBG pH VBG pCO2 VBG pO2 VBG HCO3 VBG O2 Saturation VBG Base Excess Sodium Potassium Chloride Carbon Dioxide Anion Gap BUN Creatinine Estim Creat Clear Calc Estimated GFR POC Glucose 291 H Random Glucose Calcium Phosphorus Magnesium Albumin Triglycerides Blood Type A Positive Antibody Screen NEGATIVE Crossmatch See Detail 01/31/25 01/31/25 01/31/25 16:52 17:42 22:41 WBC 18.9 H 14.5 H RBC 2.70 L D 2.22 L Hgb 8.4 L D 6.9 L* Hct 23.8 L D 19.5 L* MCV 88.1 87.8 MCH 31.1 31.1 MCHC 35.3 H 35.4 H RDW 15.5 15.9 Plt Count 286 241 MPV 10.7 11.2 Immature Gran % (Auto) Neut % (Auto) Lymph % (Auto) [place] % (Auto) Eos % (Auto) Baso % (Auto) Lymph # (Auto) [place] # (Auto) Eos # (Auto) Baso # (Auto) Abs Immat Gran (auto) Absolute Neuts (auto) Absolute Nucleated RBC 0.190 H 0.140 H Nucleated RBC % (auto) 1.0 H 1.0 H Neutrophils % (Manual) Band Neutrophils % Lymphocytes % (Manual) Monocytes % (Manual) Eosinophils % (Manual) Metamyelocytes % Myelocytes % Abs Neuts (Manual) Lymphocytes # (Manual) Monocytes # (Manual) Eosinophils # (Manual) Metamyelocytes # Myelocytes # Platelet Estimate Plt Morphology Comment RBC Morphology Polychromasia Tear Drop Cells [place] Cells VBG pH VBG pCO2 VBG pO2 VBG HCO3 VBG O2 Saturation VBG Base Excess Sodium Potassium Chloride Carbon Dioxide Anion Gap BUN Creatinine Estim Creat Clear Calc Estimated GFR POC Glucose 290 H Random Glucose Calcium Phosphorus Magnesium Albumin Triglycerides Blood Type Antibody Screen Crossmatch 01/31/25 02/01/25 02/01/25 23:11 04:15 04:16 WBC 13.8 H RBC 2.60 L Hgb 8.0 L Hct 22.9 L MCV 88.1 MCH 30.8 MCHC 34.9 RDW 15.5 Plt Count 220 MPV 11.2 Immature Gran % (Auto) Cancelled Neut % (Auto) Cancelled Lymph % (Auto) Cancelled [place] % (Auto) Cancelled Eos % (Auto) Cancelled Baso % (Auto) Cancelled Lymph # (Auto) Cancelled [place] # (Auto) Cancelled Eos # (Auto) Cancelled Baso # (Auto) Cancelled Abs Immat Gran (auto) Cancelled Absolute Neuts (auto) Cancelled Absolute Nucleated RBC 0.160 H Nucleated RBC % (auto) 1.2 H Neutrophils % (Manual) 84 H Band Neutrophils % 3 Lymphocytes % (Manual) 2 L Monocytes % (Manual) 6 Eosinophils % (Manual) 1 Metamyelocytes % 3 Myelocytes % 1 Abs Neuts (Manual) 12.0 H Lymphocytes # (Manual) 0.3 L Monocytes # (Manual) 0.8 Eosinophils # (Manual) 0.1 Metamyelocytes # 0.4 Myelocytes # 0.1 Platelet Estimate NORMAL Plt Morphology Comment NORMAL RBC Morphology NOTED Polychromasia 1+ (0-2) Tear Drop Cells 1+ (0-2) [place] Cells 1+ (0-2) VBG pH VBG pCO2 VBG pO2 VBG HCO3 VBG O2 Saturation VBG Base Excess Sodium 146 H Potassium 3.8 Chloride 109 H Carbon Dioxide 18 L Anion Gap 23 H BUN 169 H Creatinine 5.74 H* Estim Creat Clear Calc 6.7 Estimated GFR 7 POC Glucose 332 H Random Glucose 345 H Calcium 7.9 L Phosphorus 6.3 H Magnesium 2.5 Albumin 2.9 L Triglycerides 569 H Blood Type Antibody Screen Crossmatch 02/01/25 04:24 WBC RBC Hgb Hct MCV MCH MCHC RDW Plt Count MPV Immature Gran % (Auto) Neut % (Auto) Lymph % (Auto) [place] % (Auto) Eos % (Auto) Baso % (Auto) Lymph # (Auto) [place] # (Auto) Eos # (Auto) Baso # (Auto) Abs Immat Gran (auto) Absolute Neuts (auto) Absolute Nucleated RBC Nucleated RBC % (auto) Neutrophils % (Manual) Band Neutrophils % Lymphocytes % (Manual) Monocytes % (Manual) Eosinophils % (Manual) Metamyelocytes % Myelocytes % Abs Neuts (Manual) Lymphocytes # (Manual) Monocytes # (Manual) Eosinophils # (Manual) Metamyelocytes # Myelocytes # Platelet Estimate Plt Morphology Comment RBC Morphology Polychromasia Tear Drop Cells [place] Cells VBG pH 7.47 H VBG pCO2 25 VBG pO2 56 VBG HCO3 19 L VBG O2 Saturation 86.0 VBG Base Excess -3.3 Sodium Potassium Chloride Carbon Dioxide Anion Gap BUN Creatinine Estim Creat Clear Calc Estimated GFR POC Glucose Random Glucose Calcium Phosphorus Magnesium Albumin Triglycerides Blood Type Antibody Screen Crossmatch Microbiology Microbiology Results: Microbiology 01/19/25 07:38 Blood - Venous Blood Culture - Final No growth after 5 days. 01/19/25 07:14 Blood - Venous Blood Culture - Final No growth after 5 days. Procedures Date of Service Date of Service: 02/05/25 Assessment & Plan Assessment and plan (1) Acute kidney injury superimposed on CKD: Status: Acute (2) Acute combined systolic and diastolic congestive heart failure: Status: Acute Plan 79-year-old woman with acute kidney injury superimposed on chronic kidney disease. Differential diagnosis for acute kidney injury would include tubular injury. No obstruction based on renal ultrasonogram. Moderately atrophic right kidney. Urine sediments bland therefore glomerular nephritis or interstitial disease seem less likely. Optimize blood pressure. Avoid hypotension. Keep I > O with hypotonic fluids ( free water) Continue to avoid nephrotoxic agents including vancomycin. We will plan for dialysis tomorrow if renal function does not show any improvement. Time Spent With Patient Time: Total time managing care of this patient today ____ minutes. Progress Note: Quality Stroke Does the patient have a stroke diagnosis?: No
[2025-02-01 11:36] LABS: Glucose, Whole Blood 355 mg/dL (60-115)
--- NOTE | 2025-02-01 13:51 | P.PNGI_ITS ---
Subjective Subjective Date of Service: 02/01/25 Interval History: Seen in follow up. s/p EGD 3/ with large duo bulb ulcer not amenable to endoscopic intervention. s/p IR guided embolization of GDA as guided by the clip though no active bleeding was noted at the time of angiography Critical Care Time (minutes): 0 Physical Exam 2 Vital Signs: Vital Signs: Last Vital Signs Temp 99.7 F 02/01/25 13:00 Pulse 80 02/01/25 13:00 Resp 21 H 02/01/25 13:00 BP 149/54 H 02/01/25 13:00 Pulse Ox 96 02/01/25 13:00 O2 Del Method Mechanical Ventil ation 02/01/25 13:00 O2 Flow Rate 2 01/30/25 17:25 FiO2 21 02/01/25 13:00 BMI result Body Mass Index 18.9 intubated and sedated pale appearing per care team had another episode of melena overnight Objective Data Labs 02/02/25 05:25 02/02/25 05:25 Labs: Laboratory Results - last 24 hr 01/30/25 01/31/25 01/31/25 05:00 16:52 17:42 WBC 18.9 H RBC 2.70 L D Hgb 8.4 L D Hct 23.8 L D MCV 88.1 MCH 31.1 MCHC 35.3 H RDW 15.5 Plt Count 286 MPV 10.7 Immature Gran % (Auto) Neut % (Auto) Lymph % (Auto) [place] % (Auto) Eos % (Auto) Baso % (Auto) Lymph # (Auto) [place] # (Auto) Eos # (Auto) Baso # (Auto) Abs Immat Gran (auto) Absolute Neuts (auto) Absolute Nucleated RBC 0.190 H Nucleated RBC % (auto) 1.0 H Neutrophils % (Manual) Band Neutrophils % Lymphocytes % (Manual) Monocytes % (Manual) Eosinophils % (Manual) Metamyelocytes % Myelocytes % Abs Neuts (Manual) Lymphocytes # (Manual) Monocytes # (Manual) Eosinophils # (Manual) Metamyelocytes # Myelocytes # Platelet Estimate Plt Morphology Comment RBC Morphology Polychromasia Tear Drop Cells [place] Cells VBG pH VBG pCO2 VBG pO2 VBG HCO3 VBG O2 Saturation VBG Base Excess Sodium Potassium Chloride Carbon Dioxide Anion Gap BUN Creatinine Estim Creat Clear Calc Estimated GFR POC Glucose 290 H Random Glucose Calcium Phosphorus Magnesium Albumin Triglycerides Blood Type A Positive Antibody Screen NEGATIVE Crossmatch See Detail 01/31/25 01/31/25 02/01/25 22:41 23:11 04:15 WBC 14.5 H 13.8 H RBC 2.22 L 2.60 L Hgb 6.9 L* 8.0 L Hct 19.5 L* 22.9 L MCV 87.8 88.1 MCH 31.1 30.8 MCHC 35.4 H 34.9 RDW 15.9 15.5 Plt Count 241 220 MPV 11.2 11.2 Immature Gran % (Auto) Cancelled Neut % (Auto) Cancelled Lymph % (Auto) Cancelled [place] % (Auto) Cancelled Eos % (Auto) Cancelled Baso % (Auto) Cancelled Lymph # (Auto) Cancelled [place] # (Auto) Cancelled Eos # (Auto) Cancelled Baso # (Auto) Cancelled Abs Immat Gran (auto) Cancelled Absolute Neuts (auto) Cancelled Absolute Nucleated RBC 0.140 H 0.160 H Nucleated RBC % (auto) 1.0 H 1.2 H Neutrophils % (Manual) 84 H Band Neutrophils % 3 Lymphocytes % (Manual) 2 L Monocytes % (Manual) 6 Eosinophils % (Manual) 1 Metamyelocytes % 3 Myelocytes % 1 Abs Neuts (Manual) 12.0 H Lymphocytes # (Manual) 0.3 L Monocytes # (Manual) 0.8 Eosinophils # (Manual) 0.1 Metamyelocytes # 0.4 Myelocytes # 0.1 Platelet Estimate NORMAL Plt Morphology Comment NORMAL RBC Morphology NOTED Polychromasia 1+ (0-2) Tear Drop Cells 1+ (0-2) [place] Cells 1+ (0-2) VBG pH VBG pCO2 VBG pO2 VBG HCO3 VBG O2 Saturation VBG Base Excess Sodium Potassium Chloride Carbon Dioxide Anion Gap BUN Creatinine Estim Creat Clear Calc Estimated GFR POC Glucose 332 H Random Glucose Calcium Phosphorus Magnesium Albumin Triglycerides Blood Type Antibody Screen Crossmatch 02/01/25 02/01/25 02/01/25 04:16 04:24 11:32 WBC RBC Hgb Hct MCV MCH MCHC RDW Plt Count MPV Immature Gran % (Auto) Neut % (Auto) Lymph % (Auto) [place] % (Auto) Eos % (Auto) Baso % (Auto) Lymph # (Auto) [place] # (Auto) Eos # (Auto) Baso # (Auto) Abs Immat Gran (auto) Absolute Neuts (auto) Absolute Nucleated RBC Nucleated RBC % (auto) Neutrophils % (Manual) Band Neutrophils % Lymphocytes % (Manual) Monocytes % (Manual) Eosinophils % (Manual) Metamyelocytes % Myelocytes % Abs Neuts (Manual) Lymphocytes # (Manual) Monocytes # (Manual) Eosinophils # (Manual) Metamyelocytes # Myelocytes # Platelet Estimate Plt Morphology Comment RBC Morphology Polychromasia Tear Drop Cells [place] Cells VBG pH 7.47 H VBG pCO2 25 VBG pO2 56 VBG HCO3 19 L VBG O2 Saturation 86.0 VBG Base Excess -3.3 Sodium 146 H Potassium 3.8 Chloride 109 H Carbon Dioxide 18 L Anion Gap 23 H BUN 169 H Creatinine 5.74 H* Estim Creat Clear Calc 6.7 Estimated GFR 7 POC Glucose 355 H* Random Glucose 345 H Calcium 7.9 L Phosphorus 6.3 H Magnesium 2.5 Albumin 2.9 L Triglycerides 569 H Blood Type Antibody Screen Crossmatch Microbiology Microbiology Results: Microbiology 01/19/25 07:38 Blood - Venous Blood Culture - Final No growth after 5 days. 01/19/25 07:14 Blood - Venous Blood Culture - Final No growth after 5 days. Procedures Date of Service Date of Service: 02/02/25 Progress Note: A&P Assessment and plan (1) Acute on chronic anemia: Status: Acute (2) UGIB (upper gastrointestinal bleed): Status: Acute (3) Duodenal ulcer: Status: Acute Plan Pt with coffee grounds G output and melena with acute on chronic anemia 2/2 large duo bulb ulcer. This was not amenable to endoscopic intervention based on exam 01/30. s/p urgent IR embolization as above. Plan: - Cont IV protonix drip - Add carafate 10 ml liquid QID through OG - Monitor H/H and OG output - If has recurrence of overt GI hemorrhage, consider CT bleed protocol vs repeat EGD Time Spent With Patient Time: Total time managing care of this patient today ____ minutes. Quality Stroke Does the patient have a stroke diagnosis?: No VTE Prior VTE?: No VTE Risk Level:: Medical - moderate - high VTE Device Contraindication: N/A - Device Ordered VTE Drug Contraindication: N/A - Med Ordered
[2025-02-01] MEDS: propofoL 1,000 MG/100 ML VIAL 10.46 MG IVCONT ×2 (16:56→23:46)
[2025-02-01 17:02] LABS: Glucose, Whole Blood 298 mg/dL (60-115)
--- NOTE | 2025-02-01 18:05 | PC.NURSE ---
Assumed care at 0700 - patient remains intubated and sedated. Sedation vacation & PSV trial initiated. Propofol gtt restarted and switched to PC by RT for worsening vent synchrony. Care ongoing.
[2025-02-01] MEDS: Parenteral Nutrition 1,560 ML 65 ML IV (20:08)
[2025-02-01 23:37] LABS: Glucose, Whole Blood 342 mg/dL (60-115)
[2025-02-02] VITALS (46 sets, daily range): BP systolic 82–217; BP diastolic 49–80; PULSE 58–89; RESP 12–29; TEMP 34.9–38; O2SAT 91–100; BMI 19.0
[2025-02-02] MEDS: Piperacillin Sodium/Tazobactam 2.25 GM in 0.9 % Sodium Chloride 50 ML IV ×4 (01:39→23:06)
[2025-02-02] MEDS: hydrALAZINE HCl 20 MG/ML VIAL 10 MG IVPUSH ×2 (04:36→19:45)
[2025-02-02] MEDS: Linezolid/D5W 600 MG/300 ML PIGGYBACK 300 MG IV ×2 (05:07→17:35)
[2025-02-02] MEDS: Levothyroxine Sodium 125 MCG TABLET PO (05:08)
[2025-02-02] MEDS: Pantoprazole Sodium 80 MG in 0.9 % Sodium Chloride 80 ML 10 MG IV ×2 (05:10→14:57)
[2025-02-02] MEDS: propofoL 1,000 MG/100 ML VIAL 10.46 MG IVCONT (05:13)
[2025-02-02 05:33] LABS: VBG HCO3 17 mmol/L (22-26); VBG pCO2 19 mmHg; VBG pH 7.54 (7.32-7.43); VBG pO2 61 mmHg
[2025-02-02 05:36] LABS: Mean Corpuscular HGB Conc 34.7 g/dl (31.0-35.0); Mean Corpuscular Hemoglobin 30.4 pg (27.0-33.0); Mean Corpuscular Volume 87.7 fL (80.0-98.0); Mean Platelet Volume 11.4 fL (9.4-12.3); NRBC Pct Auto 0.4 /100WBC (0.0-0.2); Platelet Count 170 X10*3/uL (160-400); Red Blood Count 2.27 X10*6/uL (4.20-5.50); Red Cell Distribution Width 15.6 % (11.0-16.0); White Blood Count 11.3 X10*3/uL (4.8-10.8)
[2025-02-02 05:39] LABS: Glucose, Whole Blood 348 mg/dL (60-115)
[2025-02-02 05:40] LABS: Hemoglobin 6.9 g/dl (12.0-16.0)
[2025-02-02 05:41] LABS: Hematocrit 19.9 % (37.0-47.0)
[2025-02-02 05:58] LABS: Albumin Level 2.7 g/dL (3.5-5.0); Anion Gap 24 (12-20); Calcium 8.6 mg/dL (8.4-10.2); Carbon Dioxide 14 mmol/L (22-29); Chloride 105 mmol/L (96-108); Creatinine Clr Calc Pharmacy 6.6; Estimated Glomerular Filt Rate 7; Glucose Random 386 mg/dL (60-115); Magnesium 2.6 mg/dL (1.6-2.6); Potassium 2.9 mmol/L (3.3-5.1); Sodium 140 mmol/L (135-145)
[2025-02-02 06:04] LABS: Blood Urea Nitrogen 176 mg/dL (9-16)
[2025-02-02] MEDS: Insulin Lispro 100 UNIT/ML 3 ML VIAL SUBCUT ×3 (06:11→18:04)
[2025-02-02 06:21] LABS: Venous Blood Gas Refer to POC result
[2025-02-02] MEDS: 0.9 % Sodium Chloride Flush 3 ML SYRINGE IVFLUSH ×2 (08:39→17:34)
[2025-02-02] MEDS: Chlorhexidine Gluc Oral Rinse 15 ML MOUTHWASH BUCCAL ×3 (08:41→21:36)
--- NOTE | 2025-02-02 08:46 | P.PNCC_ITS ---
Subjective Subjective Date of Service: 02/02/25 Critical Care Time (minutes): 35 Comment: No new events overnight Hemoglobin dropped to 6.9, receiving 1 unit of PRBC transfusion On ventilator support Plan for hemodialysis today Physical Exam 2 Vital Signs: Vital Signs: Last Vital Signs Temp 98.1 F 02/02/25 08:00 Pulse 73 02/02/25 08:00 Resp 16 02/02/25 08:00 BP 147/79 H 02/02/25 08:00 Pulse Ox 99 02/02/25 08:00 O2 Del Method Mechanical Ventil ation 02/02/25 08:00 O2 Flow Rate 2 01/30/25 17:25 FiO2 21 02/02/25 08:00 BMI result Body Mass Index 19.0 General: acute distress, ill appearing and tired appearing Nutritional Appearance: well nourished and overweight Eyes: appearance normal, both eyes and all related structures; Alignment and Position: alignment normal and position normal Neck: No lymphadenopathy, no thyromegaly Resp: bilateral air entry equal, occasional added sounds present Cardio: Regular rate, regular rhythm; Heart sounds: S1 normal heart sound present and S2 normal heart sound present GI: soft, nontender, no guarding, no hepatosplenomegaly : bladder normal to inspection, bladder normal to palpation, no renal angle tenderness Skin: no rashes or lesions noted and elasticity normal Neuro: oriented to person, oriented to place, oriented to time and moves all extremities Objective Data Labs 02/02/25 05:25 02/02/25 05:25 Labs: Laboratory Results - last 24 hr 02/01/25 02/01/25 02/01/25 04:16 11:32 16:59 WBC RBC Hgb Hct MCV MCH MCHC RDW Plt Count MPV Absolute Nucleated RBC Nucleated RBC % (auto) VBG pH VBG pCO2 VBG pO2 VBG HCO3 VBG O2 Saturation VBG Base Excess Sodium Potassium Chloride Carbon Dioxide Anion Gap BUN Creatinine Estim Creat Clear Calc Estimated GFR POC Glucose 355 H* 298 H Random Glucose Calcium Phosphorus Magnesium Albumin 2.9 L Blood Type Antibody Screen Crossmatch 02/01/25 02/02/25 02/02/25 23:33 05:25 05:29 WBC 11.3 H RBC 2.27 L Hgb 6.9 L* Hct 19.9 L* MCV 87.7 MCH 30.4 MCHC 34.7 RDW 15.6 Plt Count 170 MPV 11.4 Absolute Nucleated RBC 0.050 H Nucleated RBC % (auto) 0.4 H VBG pH 7.54 H VBG pCO2 19 VBG pO2 61 VBG HCO3 17 L VBG O2 Saturation 91.0 VBG Base Excess -4.0 Sodium 140 Potassium 2.9 L* D Chloride 105 Carbon Dioxide 14 L Anion Gap 24 H BUN 176 H Creatinine 6.12 H* Estim Creat Clear Calc 6.6 Estimated GFR 7 POC Glucose 342 H Random Glucose 386 H* Calcium 8.6 D Phosphorus 5.0 H Magnesium 2.6 Albumin 2.7 L Blood Type Antibody Screen Crossmatch 02/02/25 02/02/25 05:36 07:27 WBC RBC Hgb Hct MCV MCH MCHC RDW Plt Count MPV Absolute Nucleated RBC Nucleated RBC % (auto) VBG pH VBG pCO2 VBG pO2 VBG HCO3 VBG O2 Saturation VBG Base Excess Sodium Potassium Chloride Carbon Dioxide Anion Gap BUN Creatinine Estim Creat Clear Calc Estimated GFR POC Glucose 348 H Random Glucose Calcium Phosphorus Magnesium Albumin Blood Type A Positive Antibody Screen NEGATIVE Crossmatch See Detail Microbiology Microbiology Results: Microbiology 01/19/25 07:38 Blood - Venous Blood Culture - Final No growth after 5 days. 01/19/25 07:14 Blood - Venous Blood Culture - Final No growth after 5 days. Progress Note: A&P Assessment and plan (1) HTN (hypertension): Status: Acute (2) Heart failure: Status: Acute (3) Acute combined systolic and diastolic congestive heart failure: Status: Acute (4) CAD (coronary artery disease): Status: Acute (5) NSTEMI (non-ST elevated myocardial infarction): Status: Acute (6) Hyperlipidemia: Status: Acute (7) UGIB (upper gastrointestinal bleed): Status: Acute Plan Neuro: Acute encephalopathy possibly due to metabolic encephalopathy On propofol for sedation as she became bradycardic with precedex, will turn off propofol now to assist with weaning from ventilator Close neurological status monitoring in the ICU every hour Cardiac: acute on chronic heart failure: EF 29%, grade 2 diastolic dysfunction, moderate TR continue carvedilol, hydralazine and Isordil as her blood pressures are better today paroxysmal atrial fibrillation: one episode 15 minutes on 01/29/2025 only on prophylactic heparin, we will withhold on therapeutic anticoagulation given massive upper GI bleed and still has a duodenal ulcer Respiratory: Had to be intubated on 01/29/2025 due to respiratory decompensation due to respiratory fatigue On ventilator support this morning PRVC mode FiO2: 21% PEEP:5 TV:400 RR:20, we will place her on pressor support trials once the dialysis is over Ventilator management bundle Head end elevation, chlorhexidine oral care, daily spontaneous awakening trials, daily spontaneous breathing trials, bronchodilators as needed GI: Patient had large volume upper GI coffee ground emesis which was suctioned through OG tube Emergent upper GI endoscopy showed a large duodenal ulcer with a bleeding vessel which was clipped. Interventional Radiology could not find any active extravasation but the artery supplying the ulcer has been embolized Hb drop to 6.9 this morning, receiving 1 PRBC transfusion on continous pantoprazole infusion, on oral sucralfate suspension on PPN as she has poor nutrition, not cleared for feeds yet, okay to give meds Renal: Acute on chronic renal failure: urine output improving about 835cc in the past 24hrs, BUN and creatinine continues to increase, up to 6 this morning. 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 Hemoglobin 6.9 this morning, receiving 1 unit of PRBC transfusion INR 1.2 Endocrine: Blood sugars under control Sliding scale insulin as needed Infectious disease: In view of fevers antibiotics has been escalated to Zosyn and Zyvox We will send blood cultures Musculoskeletal: Decubitus ulcer prevention protocol Lines: peripheral Prophylaxis: heparin withheld, SCD, pantoprazole Quality Stroke Does the patient have a stroke diagnosis?: No VTE Prior VTE?: No VTE Risk Level:: Medical - moderate - high VTE Device Contraindication: N/A - Device Ordered VTE Drug Contraindication: N/A - Med Ordered
--- NOTE | 2025-02-02 10:00 | MHC.CLN ---
F/U PT REMAINS INTUBATED AND SEDATED PT CONTINUES WITH OGT TO SUCTION AND UNABLE TO RECEIVE TF FOR NUTRITION SUPPORT DISCUSSED AT ROUNDS WITH -BRYANNA TODAY DISCUSSED WITH PHARMACY RECOMMEND INCREASING PPN TO 70ML/HR TO PROVIDE 857KCALS, 168G PROTEIN, 71G PROTEIN HOLD LIPIDS NOTED TRIGS 569 REPLETE LYTES NEEDED CONTINUE THE ABOVE RATE OVER WEEKEND; RD CAN BE REACHED DURING OFF HOURS VIA TIGER CONNECT IF NEEDED
[2025-02-02] MEDS: carvediloL 25 MG TABLET PO (11:03)
[2025-02-02] MEDS: hydrALAZINE HCl 50 MG TABLET PO ×3 (11:03→17:35)
[2025-02-02] MEDS: Isosorbide Dinitrate 20 MG TABLET PO ×3 (11:03→17:35)
[2025-02-02] MEDS: Sucralfate Oral Suspension 1 GM/10 ML ORAL.SUSP PO ×3 (11:04→21:36)
[2025-02-02 11:47] LABS: Glucose, Whole Blood 351 mg/dL (60-115)
--- NOTE | 2025-02-02 14:25 | MHC.CM.PN ---
Pt remains intubated in ICU: Received 2 units PRBC today: will have HD session. Pt has been referred to SNF and ARF - pt not making clinical gains: MD to have goals of care discussion w/family this weekend. CM to follow
--- NOTE | 2025-02-02 14:31 | P.PNNP_ITS ---
Subjective Subjective Date of Service: 02/02/25 Interval history: Seen in follow up. ; s/p EGD 3/4 with large duo bulb ulcer not amenable to endoscopic intervention. ; s/p IR guided embolization of GDA as guided by the clip though no active bleeding was noted at the time of angiography; Dialyzed this morning. All recent data reviewed Physical Exam 2 Vital Signs: Vital Signs: Last Vital Signs Temp 99.1 F 02/02/25 13:53 Pulse 66 02/02/25 13:53 Resp 23 H 02/02/25 13:53 BP 175/60 H 02/02/25 13:53 Pulse Ox 97 02/02/25 13:53 O2 Del Method Mechanical Ventil ation 02/02/25 13:53 O2 Flow Rate 2 01/30/25 17:25 FiO2 21 02/02/25 13:53 BMI result Body Mass Index 19.0 Const: General: no acute distress Resp: Auscultation: diminished lung sounds Cardio: Rate: regular rate GI: Palpation (GI): Soft to palpation Neuro: Other: Intubated and sedated Objective Data Labs 02/02/25 05:25 02/02/25 05:25 Labs: Laboratory Results - last 24 hr 02/01/25 02/01/25 02/02/25 16:59 23:33 05:25 WBC 11.3 H RBC 2.27 L Hgb 6.9 L* Hct 19.9 L* MCV 87.7 MCH 30.4 MCHC 34.7 RDW 15.6 Plt Count 170 MPV 11.4 Absolute Nucleated RBC 0.050 H Nucleated RBC % (auto) 0.4 H VBG pH VBG pCO2 VBG pO2 VBG HCO3 VBG O2 Saturation VBG Base Excess Sodium 140 Potassium 2.9 L* D Chloride 105 Carbon Dioxide 14 L Anion Gap 24 H BUN 176 H Creatinine 6.12 H* Estim Creat Clear Calc 6.6 Estimated GFR 7 POC Glucose 298 H 342 H Random Glucose 386 H* Calcium 8.6 D Phosphorus 5.0 H Magnesium 2.6 Albumin 2.7 L Blood Type Antibody Screen Crossmatch 02/02/25 02/02/25 02/02/25 05:29 05:36 07:27 WBC RBC Hgb Hct MCV MCH MCHC RDW Plt Count MPV Absolute Nucleated RBC Nucleated RBC % (auto) VBG pH 7.54 H VBG pCO2 19 VBG pO2 61 VBG HCO3 17 L VBG O2 Saturation 91.0 VBG Base Excess -4.0 Sodium Potassium Chloride Carbon Dioxide Anion Gap BUN Creatinine Estim Creat Clear Calc Estimated GFR POC Glucose 348 H Random Glucose Calcium Phosphorus Magnesium Albumin Blood Type A Positive Antibody Screen NEGATIVE Crossmatch See Detail 02/02/25 11:40 WBC RBC Hgb Hct MCV MCH MCHC RDW Plt Count MPV Absolute Nucleated RBC Nucleated RBC % (auto) VBG pH VBG pCO2 VBG pO2 VBG HCO3 VBG O2 Saturation VBG Base Excess Sodium Potassium Chloride Carbon Dioxide Anion Gap BUN Creatinine Estim Creat Clear Calc Estimated GFR POC Glucose 351 H* Random Glucose Calcium Phosphorus Magnesium Albumin Blood Type Antibody Screen Crossmatch Microbiology Microbiology Results: Microbiology 01/19/25 07:38 Blood - Venous Blood Culture - Final No growth after 5 days. 01/19/25 07:14 Blood - Venous Blood Culture - Final No growth after 5 days. Procedures Date of Service Date of Service: 02/02/25 Assessment & Plan Assessment and plan (1) Acute kidney injury superimposed on CKD: Status: Acute Plan 79-year-old woman with acute kidney injury superimposed on chronic kidney disease due to tubular injury Urine sediments bland therefore glomerular nephritis or interstitial disease seem less likely. HD today and tomorrow; Hold HD Wednesday ; Continue rest of current medication regimen Labs AM; Shall F/U closely Progress Note: Quality Stroke Does the patient have a stroke diagnosis?: No
[2025-02-02 17:58] LABS: Glucose, Whole Blood 361 mg/dL (60-115)
[2025-02-02] MEDS: propofoL 1,000 MG/100 ML VIAL 3.49 MG IVCONT (18:53)
--- NOTE | 2025-02-02 19:29 | PC.NURSE ---
ICU Critical Care Nursing Note ICU Day #:15 Vent Day #: 5 Assumed care of patient 0700. Pt received dialysis 0700- approx. 11:30 Neuro: positive cough, positive gag. Pt moved b/l lower extremities to command. Unable to squeeze hands to command or move hands.? Cardiac: sinus rhythm on tele. SBP slightly elevated, MD aware. PO blood pressure medications given via OG tube after dialysis session per orders.? Resp: Pt is mechanically ventilated. PSV trial initated at 10:50 AM. PSV trial continued until 18:37. At 18:37 volumes decreased, RR elevated. RT notified and changed vent settings to PC. GI/: lemus catheter in place, oliguric this shift. PPN running per orders.? Endocrine: POC glucose levels elevated requiring 10 units lispro SSI per JAN. MD notified. Plan to adjust PPN with dietitian.? Integumentary/Musculoskeletal: blanchable redness to sacrum area; new large foam in place.? Psychosocial (family etc.): Daughters Juana and Laverne visited at bedside.? Infectious Disease: Linezolid and Zosyn IV antibiotics.? Central Lines: [place] Right IJ with pigtail HD catheter. [address] left arm.
[2025-02-02] MEDS: propofoL 200 MG/20 ML VIAL 50 MG IVPUSH (19:50)
[2025-02-02] MEDS: Rocuronium Bromide 50 MG/5 ML VIAL 30 MG IVPUSH (19:54)
[2025-02-02] MEDS: Norepinephrine Bitartrate/D5W 8 MG/250 ML PLAST..BAG 5.31 MG IVCONT (19:59)
[2025-02-02] MEDS: Albuterol Sulfate (0.083%) 2.5 MG/3 ML VIAL.NEB 10 MG INHALE (21:12)
[2025-02-02] MEDS: Albuterol/Iprat 2.5/0.5MG 3 ML AMPUL.NEB INHALE (21:13)
[2025-02-02] MEDS: Parenteral Nutrition 1,680 ML 70 ML IV (21:36)
[2025-02-02] MEDS: guaiFENesin 100 MG/5 ML 5 ML LIQUID PO (21:36)
[2025-02-02 22:54] LABS: Hematocrit 22.4 % (37.0-47.0); Hemoglobin 8.2 g/dl (12.0-16.0)
[2025-02-02] MEDS: propofoL 1,000 MG/100 ML VIAL 17.43 MG IVCONT (23:05)
[2025-02-03] VITALS (43 sets, daily range): BP systolic 89–173; BP diastolic 48–84; PULSE 63–122; RESP 16–36; TEMP 31.7–38.1; O2SAT 21–100; BMI 17.7
[2025-02-03 00:09] LABS: Glucose, Whole Blood 371 mg/dL (60-115)
[2025-02-03] MEDS: Insulin Lispro 100 UNIT/ML 3 ML VIAL SUBCUT ×2 (00:24→05:35)
[2025-02-03] MEDS: guaiFENesin 100 MG/5 ML 5 ML LIQUID PO ×6 (00:25→21:16)
[2025-02-03] MEDS: 0.9 % Sodium Chloride Flush 3 ML SYRINGE IVFLUSH ×2 (00:25→09:13)
[2025-02-03] MEDS: Pantoprazole Sodium 80 MG in 0.9 % Sodium Chloride 80 ML 10 MG IV ×3 (00:41→19:50)
[2025-02-03] MEDS: Albuterol/Iprat 2.5/0.5MG 3 ML AMPUL.NEB INHALE ×4 (01:12→17:58)
[2025-02-03] MEDS: Piperacillin Sodium/Tazobactam 2.25 GM in 0.9 % Sodium Chloride 50 ML IV ×4 (04:23→23:12)
[2025-02-03] MEDS: propofoL 1,000 MG/100 ML VIAL 13.94 MG IVCONT (04:28)
[2025-02-03 04:56] LABS: VBG Base Excess 0.6 mmol/L; VBG HCO3 22 mmol/L (22-26); VBG pCO2 25 mmHg; VBG pH 7.55 (7.32-7.43); VBG pO2 46 mmHg
[2025-02-03 05:06] LABS: MANUAL DIFF FLAG NO
[2025-02-03 05:07] LABS: Basophils Percent Auto 0.2 % (0-2); Eosinophils Absolute Auto 0.3 X10*3/uL (0.0-0.4); Eosinophils Percent Auto 2.8 % (0-4); Imm Gran Abs Auto 0.54 X10*3/uL (0.00-0.03); Imm Gran Pct Auto 4.8 % (0.0-0.4); Lymphocytes Percent Auto 8.6 % (20-40); Mean Corpuscular HGB Conc 36.5 g/dl (31.0-35.0); Mean Corpuscular Hemoglobin 31.8 pg (27.0-33.0); Mean Corpuscular Volume 87.1 fL (80.0-98.0); Mean Platelet Volume 11.4 fL (9.4-12.3); Monocytes Percent Auto 8.8 % (2-11); NRBC Pct Auto 0.3 /100WBC (0.0-0.2); Neutrophils Absolute Auto 8.5 x10*3/uL (2.0-8.3); Neutrophils Percent Auto 74.8 % (45-73); Platelet Count 146 X10*3/uL (160-400); Red Blood Count 2.17 X10*6/uL (4.20-5.50); Red Cell Distribution Width 14.6 % (11.0-16.0); White Blood Count 11.3 X10*3/uL (4.8-10.8)
[2025-02-03 05:09] LABS: Hemoglobin 6.9 g/dl (12.0-16.0)
[2025-02-03 05:10] LABS: Hematocrit 18.9 % (37.0-47.0)
[2025-02-03 05:11] LABS: Venous Blood Gas Refer to POC result
[2025-02-03] MEDS: Levothyroxine Sodium 125 MCG TABLET PO (05:13)
[2025-02-03] MEDS: Linezolid/D5W 600 MG/300 ML PIGGYBACK 300 MG IV ×2 (05:14→17:27)
[2025-02-03 05:28] LABS: Alanine Aminotransferase 75 U/L (0-31); Albumin Level 2.6 g/dL (3.5-5.0); Alkaline Phosphatase 58 U/L (39-117); Anion Gap 22 (12-20); Aspartate Amino Transferase 44 U/L (5-31); Bilirubin Total 0.4 mg/dL (0.0-1.0); Blood Urea Nitrogen 121 mg/dL (9-16); Calcium 8.6 mg/dL (8.4-10.2); Carbon Dioxide 17 mmol/L (22-29); Chloride 96 mmol/L (96-108); Estimated Glomerular Filt Rate 9; Glucose Random 357 mg/dL (60-115); Magnesium 2.2 mg/dL (1.6-2.6); Potassium 3.1 mmol/L (3.3-5.1); Sodium 132 mmol/L (135-145); Total Protein 5.3 g/dL (6.5-8.0)
[2025-02-03 06:02] LABS: Glucose, Whole Blood 401 mg/dL (60-115)
--- NOTE | 2025-02-03 06:38 | HE.NUR.EV ---
Status Change: At approx 1900- tidal volumes low, adventitious LS auscultated throughout. Difficulty passing inline catheter, small amount of thick white inline secretions suctioned. SpO2 >90. Immediate Actions Taken: RT called to bedside. Propofol gtt titrated per JAN. Pt difficult to bag per RT but attempted to lavage. Notifications: JORY Fernando called and to bedside. Further Monitoring and Treatment: Propofol gtt to max rate per PA, additonal propofol 50 mg IVP and rocuronium 30 mg IVP given per PA. Still continuously bagging pt by RT, now able to suction copious amounts of thick white inline secretions. Now easy to bag, placed back on vent, adequate tidal volumes. Given total of albuterol 10 mg UPD and 1 duoneb UPD by RT. Levophed gtt started per JAN. Plan for Mucinex PO q4h, scheduled duonerbs, and lavaging q4-6hrs PRN.
[2025-02-03] MEDS: Sucralfate Oral Suspension 1 GM/10 ML ORAL.SUSP PO ×4 (08:41→21:16)
[2025-02-03] MEDS: hydrALAZINE HCl 50 MG TABLET PO ×4 (08:42→21:16)
[2025-02-03] MEDS: carvediloL 25 MG TABLET PO ×2 (08:42→21:16)
[2025-02-03] MEDS: Isosorbide Dinitrate 20 MG TABLET PO ×3 (08:42→17:12)
[2025-02-03] MEDS: Chlorhexidine Gluc Oral Rinse 15 ML MOUTHWASH BUCCAL ×3 (08:43→21:16)
[2025-02-03] MEDS: propofoL 1,000 MG/100 ML VIAL 10.46 MG IVCONT (11:17)
--- NOTE | 2025-02-03 11:50 | PM.CCPN ---
Subjective Subjective Date of Service: 02/03/25 Critical Care Time (minutes): 35 Comment: Episodes of agitation, desaturations with excessive secretions coming out of the right lung that had to be sectioned Undergoing hemodialysis this afternoon Physical Exam Vital Signs: Vital Signs: Last Vital Signs Temp 99.9 F 02/03/25 11:00 Pulse 83 02/03/25 11:39 Resp 17 02/03/25 11:39 BP 149/80 H 02/03/25 11:00 Pulse Ox 99 02/03/25 11:43 O2 Del Method Mechanical Ventil ation 02/03/25 11:00 O2 Flow Rate 21 02/03/25 06:00 FiO2 21 02/03/25 11:43 BMI result Body Mass Index 17.7 General: In somewhat acute distress, ill appearing and tired appearing Nutritional Appearance: well nourished and overweight Eyes: appearance normal, both eyes and all related structures; Alignment and Position: alignment normal and position normal Neck: No lymphadenopathy, no thyromegaly Resp: bilateral air entry equal, occasional added sounds present Cardio: Regular rate, regular rhythm; Heart sounds: S1 normal heart sound present and S2 normal heart sound present GI: soft, nontender, no guarding, no hepatosplenomegaly : bladder normal to inspection, bladder normal to palpation, no renal angle tenderness Skin: no rashes or lesions noted and elasticity normal Neuro: Drowsy, poorly responsive Objective Data Labs 02/03/25 04:50 02/03/25 04:50 Labs: Laboratory Results - last 24 hr 02/02/25 02/02/25 02/02/25 07:27 17:52 22:49 WBC RBC Hgb 8.2 L Hct 22.4 L MCV MCH MCHC RDW Plt Count MPV Immature Gran % (Auto) Neut % (Auto) Lymph % (Auto) Wilkinson % (Auto) Eos % (Auto) Baso % (Auto) Lymph # (Auto) Wilkinson # (Auto) Eos # (Auto) Baso # (Auto) Abs Immat Gran (auto) Absolute Neuts (auto) Absolute Nucleated RBC Nucleated RBC % (auto) VBG pH VBG pCO2 VBG pO2 VBG HCO3 VBG O2 Saturation VBG Base Excess Sodium Potassium Chloride Carbon Dioxide Anion Gap BUN Creatinine Estim Creat Clear Calc Estimated GFR POC Glucose 361 H* Random Glucose Calcium Phosphorus Magnesium Total Bilirubin AST ALT Alkaline Phosphatase Total Protein Albumin Blood Type A Positive Antibody Screen NEGATIVE Crossmatch See Detail 02/03/25 02/03/25 02/03/25 00:05 04:50 04:50 WBC 11.3 H RBC 2.17 L Hgb 6.9 L* Hct 18.9 L* MCV 87.1 MCH 31.8 MCHC 36.5 H RDW 14.6 Plt Count 146 L MPV 11.4 Immature Gran % (Auto) 4.8 H Neut % (Auto) 74.8 H Lymph % (Auto) 8.6 L Wilkinson % (Auto) 8.8 Eos % (Auto) 2.8 Baso % (Auto) 0.2 Lymph # (Auto) 1.0 L Wilkinson # (Auto) 1.0 Eos # (Auto) 0.3 Baso # (Auto) 0.0 Abs Immat Gran (auto) 0.54 H Absolute Neuts (auto) 8.5 H Absolute Nucleated RBC 0.030 H Nucleated RBC % (auto) 0.3 H VBG pH VBG pCO2 VBG pO2 VBG HCO3 VBG O2 Saturation VBG Base Excess Sodium 132 L Potassium 3.1 L Chloride 96 Carbon Dioxide 17 L Anion Gap 22 H BUN 121 H Creatinine 4.51 H* Estim Creat Clear Calc 9.0 Estimated GFR 9 POC Glucose 371 H* Random Glucose 357 H* Calcium 8.6 Phosphorus 5.0 H Magnesium 2.2 Total Bilirubin 0.4 AST 44 H ALT 75 H Alkaline Phosphatase 58 Total Protein 5.3 L Albumin 2.6 L Cancelled Blood Type Antibody Screen Crossmatch 02/03/25 02/03/25 04:52 05:57 WBC RBC Hgb Hct MCV MCH MCHC RDW Plt Count MPV Immature Gran % (Auto) Neut % (Auto) Lymph % (Auto) Wilkinson % (Auto) Eos % (Auto) Baso % (Auto) Lymph # (Auto) Wilkinson # (Auto) Eos # (Auto) Baso # (Auto) Abs Immat Gran (auto) Absolute Neuts (auto) Absolute Nucleated RBC Nucleated RBC % (auto) VBG pH 7.55 H VBG pCO2 25 VBG pO2 46 VBG HCO3 22 VBG O2 Saturation 76.0 VBG Base Excess 0.6 Sodium Potassium Chloride Carbon Dioxide Anion Gap BUN Creatinine Estim Creat Clear Calc Estimated GFR POC Glucose 401 H* Random Glucose Calcium Phosphorus Magnesium Total Bilirubin AST ALT Alkaline Phosphatase Total Protein Albumin Blood Type Antibody Screen Crossmatch Microbiology Microbiology Results: Microbiology 01/19/25 07:38 Blood - Venous Blood Culture - Final No growth after 5 days. 01/19/25 07:14 Blood - Venous Blood Culture - Final No growth after 5 days. Progress Note: A&P Assessment and plan (1) HTN (hypertension): Status: Acute (2) Heart failure: Status: Acute (3) Acute combined systolic and diastolic congestive heart failure: Status: Acute (4) CAD (coronary artery disease): Status: Acute (5) NSTEMI (non-ST elevated myocardial infarction): Status: Acute (6) Metabolic encephalopathy: Status: Acute (7) Acute hypoxic respiratory failure: Status: Acute (8) Pneumonia: Status: Acute Plan Neuro: Acute encephalopathy possibly due to metabolic encephalopathy On propofol for sedation as she became bradycardic with precedex, will turn off propofol now to assist with weaning from ventilator Close neurological status monitoring in the ICU every hour Cardiac: acute on chronic heart failure: EF 29%, grade 2 diastolic dysfunction, moderate TR continue carvedilol, hydralazine and Isordil paroxysmal atrial fibrillation: one episode 15 minutes on 01/29/2025 only on prophylactic heparin, we will withhold on therapeutic anticoagulation given massive upper GI bleed and still has a duodenal ulcer Respiratory: Had to be intubated on 01/29/2025 due to respiratory decompensation due to respiratory fatigue On ventilator support this morning PRVC mode FiO2: 21% PEEP:5 TV:400 RR:20, on dialysis again this morning, poor candidate for weaning from ventilator due to poor mental status and physical fatigue Ventilator management bundle Head end elevation, chlorhexidine oral care, daily spontaneous awakening trials, daily spontaneous breathing trials, bronchodilators as needed GI: Patient had large volume upper GI coffee ground emesis which was suctioned through OG tube Emergent upper GI endoscopy showed a large duodenal ulcer with a bleeding vessel which was clipped. Interventional Radiology could not find any active extravasation but the artery supplying the ulcer has been embolized Hb drop to 6.9 this morning, receiving 1 PRBC transfusion during HD on continous pantoprazole infusion, on oral sucralfate suspension on PPN as she has poor nutrition, not cleared for feeds yet, okay to give meds Renal: Acute on chronic renal failure: urine output improving about 835cc in the past 24hrs, BUN and creatinine continues to increase, up to 6 this morning. 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, , no possibly has not ATN for unknown reasons, and now has further insults with drop in hemoglobin, hemorrhagic shock and contrast for embolization of the heart Urinalysis bland, poor response to volume replacement Initiated on renal placement therapy, for session of dialysis on 01/27/2025, 2nd session on 01/29/2025, 3 rd session on We will closely monitor I's and O's Avoid nephrotoxic medications Acute hypokalemia: hemodialysis should fix it Acute hyponatremia: dialysis should get it better Heme: Acute blood loss anemia: Secondary to upper GI bleed, received 5 units of PRBC transfusion, target to keep hemoglobin above 7. Hemoglobin 6.9 this morning, receiving 1 unit of PRBC transfusion INR 1.2 Endocrine: Blood sugars under control Sliding scale insulin as needed Infectious disease: In view of fevers antibiotics has been escalated to Zosyn and Zyvox Zyvox discontinued Musculoskeletal: Decubitus ulcer prevention protocol Lines: peripheral Prophylaxis: heparin withheld, SCD, pantoprazole Quality Stroke Does the patient have a stroke diagnosis?: No VTE Prior VTE?: No VTE Risk Level:: Medical - moderate - high VTE Device Contraindication: N/A - Device Ordered VTE Drug Contraindication: N/A - Med Ordered
[2025-02-03 12:54] LABS: Glucose, Whole Blood 455 mg/dL (60-115)
[2025-02-03] MEDS: Insulin Regular/NS 100 UNIT/100 ML PLAST..BAG IVCONT (15:05)
[2025-02-03 15:15] LABS: Glucose, Whole Blood 454 mg/dL (60-115)
[2025-02-03] MEDS: Insulin Regular, Human 100 UNIT/ML 10 ML VIAL 10 UNIT IVPUSH (15:38)
[2025-02-03 16:12] LABS: Glucose, Whole Blood 458 mg/dL (60-115)
[2025-02-03 16:12] LABS: Glucose, Whole Blood 503 mg/dL (60-115)
[2025-02-03 17:15] LABS: Glucose, Whole Blood 406 mg/dL (60-115)
[2025-02-03 17:15] LABS: Glucose, Whole Blood 433 mg/dL (60-115)
[2025-02-03 18:21] LABS: Glucose, Whole Blood 502 mg/dL (60-115)
[2025-02-03 18:21] LABS: Glucose, Whole Blood 469 mg/dL (60-115)
[2025-02-03 19:14] LABS: Glucose, Whole Blood 493 mg/dL (60-115)
[2025-02-03 19:14] LABS: Glucose, Whole Blood 483 mg/dL (60-115)
--- NOTE | 2025-02-03 19:31 | PC.NURSE ---
assumed care 0700 on 02/03/25 patient FMS ripped spilling black tarry stool on the floor. approx 900cc black tarry stool left in bag (see I+O). patient started on awakening trial at 11:30 (sedation titrated per JAN), opened eyes to name and tracked around the room. patient recived x-ray at approx 12:30 (at this time patient still awake and tracking. Started dialysis approx 13:30. during dialysis patient had episode of hypotension, tachypnea w/ low tidal volumes on vent. 1u RBC transfused. vital signs stabilized post transfusion. however patient post dialysis no longer producing urine and no longer awakening with eye tracking. MD made aware of urine output and mental status at approx 1745. MD started will order CT. relived by night RN at 1900 on 02/03/25
[2025-02-03 20:06] LABS: Glucose, Whole Blood 433 mg/dL (60-115)
[2025-02-03 20:21] LABS: Hematocrit 23.4 % (37.0-47.0); Hemoglobin 8.4 g/dl (12.0-16.0)
[2025-02-03 20:59] LABS: Anion Gap 18 (12-20); Blood Urea Nitrogen 85 mg/dL (9-16); Carbon Dioxide 21 mmol/L (22-29); Chloride 95 mmol/L (96-108); Creatinine Clr Calc Pharmacy 10.8; Estimated Glomerular Filt Rate 13; Glucose Random 481 mg/dL (60-115); Potassium 2.9 mmol/L (3.3-5.1); Sodium 131 mmol/L (135-145)
[2025-02-03 21:01] LABS: Glucose, Whole Blood 442 mg/dL (60-115)
[2025-02-03] MEDS: Potassium Chloride Packet 20 MEQ PACKET PO (21:16)
[2025-02-03] MEDS: Insulin Glargine,Hum.rec.anlog 100 UNIT/ML 10 ML VIAL 10 UNIT SUBCUT (21:16)
[2025-02-03] MEDS: Parenteral Nutrition 1,680 ML 70 ML IV (21:53)
[2025-02-03 22:01] LABS: Glucose, Whole Blood 371 mg/dL (60-115)
[2025-02-03 23:05] LABS: Glucose, Whole Blood 341 mg/dL (60-115)
[2025-02-03 23:58] LABS: Glucose, Whole Blood 312 mg/dL (60-115)
[2025-02-04] VITALS (35 sets, daily range): BP systolic 126–176; BP diastolic 38–77; PULSE 64–84; RESP 14–16; TEMP 34.9–38; O2SAT 95–100; BMI 17.2
--- NOTE | 2025-02-04 | ECG_ITS ---
Test Reason : ?flutter Blood Pressure : */* mmHG Vent. Rate : 65 BPM Atrial Rate : 260 BPM P-R Int : * ms QRS Dur : 104 ms QT Int : 392 ms P-R-T Axes : 94 65 237 degrees QTcB Int : 407 ms Atrial flutter with 4:1 A-V conduction Abnormal ECG When compared with ECG of 19-Jan-2025 19:22, Atrial flutter has replaced Sinus rhythm Referred By: Carmen Rodriguez Electronically Signed By: ALBINA HERRERA
[2025-02-04] MEDS: Albuterol/Iprat 2.5/0.5MG 3 ML AMPUL.NEB INHALE ×4 (00:36→23:28)
[2025-02-04] MEDS: 0.9 % Sodium Chloride Flush 3 ML SYRINGE IVFLUSH ×4 (00:49→23:10)
[2025-02-04 01:00] LABS: Glucose, Whole Blood 269 mg/dL (60-115)
[2025-02-04] MEDS: guaiFENesin 100 MG/5 ML 5 ML LIQUID PO ×6 (01:12→20:13)
[2025-02-04 03:06] LABS: Glucose, Whole Blood 235 mg/dL (60-115)
[2025-02-04 04:08] LABS: Glucose, Whole Blood 229 mg/dL (60-115)
[2025-02-04 04:25] LABS: VBG Base Excess 1.5 mmol/L; VBG HCO3 23 mmol/L (22-26); VBG pCO2 27 mmHg; VBG pH 7.54 (7.32-7.43); VBG pO2 40 mmHg
[2025-02-04] MEDS: Piperacillin Sodium/Tazobactam 2.25 GM in 0.9 % Sodium Chloride 50 ML IV ×4 (04:29→23:09)
[2025-02-04] MEDS: Insulin Regular/NS 100 UNIT/100 ML PLAST..BAG 9 UNIT IVCONT (04:32)
[2025-02-04 04:33] LABS: MANUAL DIFF FLAG NO
[2025-02-04 04:39] LABS: Venous Blood Gas Refer to POC result
[2025-02-04 04:41] LABS: Basophils Absolute Auto 0.1 X10*3/uL (0.0-0.2); Basophils Percent Auto 0.3 % (0-2); Eosinophils Absolute Auto 0.2 X10*3/uL (0.0-0.4); Eosinophils Percent Auto 1.2 % (0-4); Hematocrit 22.7 % (37.0-47.0); Hemoglobin 8.1 g/dl (12.0-16.0); Imm Gran Abs Auto 0.93 X10*3/uL (0.00-0.03); Lymphocytes Percent Auto 5.2 % (20-40); Mean Corpuscular HGB Conc 35.7 g/dl (31.0-35.0); Mean Corpuscular Hemoglobin 31.3 pg (27.0-33.0); Mean Corpuscular Volume 87.6 fL (80.0-98.0); Mean Platelet Volume 12.2 fL (9.4-12.3); Monocytes Absolute Auto 1.3 X10*3/uL (0.1-1.2); Monocytes Percent Auto 6.7 % (2-11); NRBC Pct Auto 0.2 /100WBC (0.0-0.2); Neutrophils Absolute Auto 15.1 x10*3/uL (2.0-8.3); Neutrophils Percent Auto 81.6 % (45-73); Platelet Count 167 X10*3/uL (160-400); Red Blood Count 2.59 X10*6/uL (4.20-5.50); White Blood Count 18.5 X10*3/uL (4.8-10.8)
[2025-02-04 04:54] LABS: Alanine Aminotransferase 199 U/L (0-31); Albumin Level 2.8 g/dL (3.5-5.0); Alkaline Phosphatase 68 U/L (39-117); Anion Gap 20 (12-20); Aspartate Amino Transferase 169 U/L (5-31); Bilirubin Total 0.5 mg/dL (0.0-1.0); Blood Urea Nitrogen 91 mg/dL (9-16); Calcium 9.1 mg/dL (8.4-10.2); Carbon Dioxide 19 mmol/L (22-29); Chloride 97 mmol/L (96-108); Creatinine Clr Calc Pharmacy 10.3; Estimated Glomerular Filt Rate 12; Glucose Random 218 mg/dL (60-115); Potassium 3.1 mmol/L (3.3-5.1); Sodium 133 mmol/L (135-145); Total Protein 5.8 g/dL (6.5-8.0)
[2025-02-04] MEDS: Levothyroxine Sodium 125 MCG TABLET PO (05:03)
[2025-02-04] MEDS: Linezolid/D5W 600 MG/300 ML PIGGYBACK 300 MG IV (05:03)
[2025-02-04 05:05] LABS: Glucose, Whole Blood 200 mg/dL (60-115)
[2025-02-04] MEDS: Pantoprazole Sodium 80 MG in 0.9 % Sodium Chloride 80 ML 10 MG IV (05:10)
[2025-02-04 06:07] LABS: Glucose, Whole Blood 276 mg/dL (60-115)
--- NOTE | 2025-02-04 07:04 | HE.ICUCC ---
ICU Critical Care Nursing Note Neuro: Pt off sedation since approximately 1130 02/03/25. Pt lethargic, weakly opens eyes to name and tracks speaker. Cough reflex present, minimal gag reflex. Grimaces with oral care. Inconsistently follows simple commands- moved bilateral feet to command x1. Cardiac: Approximately 2300- patient became tachycardic with HR 120s for approx. 15 minutes. Pt converted to normal sinus, HR 70-80s with increased ectopy- JORY Fernando aware. Approximately 0700- patient became tachycardic with HR 120s during bedside shift report- ?Aflutter, oncoming RN aware. Resp: Remains on PCV, see vent assessment. Lungs diminished throughout. Scant amount of thick white inline secretions. GI/: OGT clamped. Pt receiving PPN @ 70 mL/hr. On Insulin gtt for hyperglycemia- see JAN. Pt started on Lantus 10 units BID- see JAN. Abd round, soft. Hyperactive bowel sounds. Fecal management system in place- draining liquid black stool. Integumentary/Musculoskeletal: Blanchable redness to bilateral buttocks- foam C/D/I. Psychosocial (family etc.): Daughter Laverne (alternate HCP) spoke with JORY Fernando to discuss goals of care.
[2025-02-04 07:07] LABS: Glucose, Whole Blood 238 mg/dL (60-115)
[2025-02-04 08:42] LABS: Glucose, Whole Blood 223 mg/dL (60-115)
[2025-02-04] MEDS: Insulin Glargine,Hum.rec.anlog 100 UNIT/ML 10 ML VIAL 10 UNIT SUBCUT ×3 (08:51→20:10)
[2025-02-04] MEDS: carvediloL 25 MG TABLET PO ×2 (08:55→20:13)
[2025-02-04] MEDS: Isosorbide Dinitrate 20 MG TABLET PO ×3 (08:55→18:41)
[2025-02-04] MEDS: hydrALAZINE HCl 50 MG TABLET PO ×4 (08:55→20:13)
[2025-02-04] MEDS: Chlorhexidine Gluc Oral Rinse 15 ML MOUTHWASH BUCCAL ×3 (08:56→20:13)
[2025-02-04] MEDS: Sucralfate Oral Suspension 1 GM/10 ML ORAL.SUSP PO ×4 (08:56→20:13)
[2025-02-04 09:15] LABS: Glucose, Whole Blood 224 mg/dL (60-115)
--- NOTE | 2025-02-04 09:32 | PC.NURSE ---
Addendum entered by Zane Gregory RN 02/04/25 19:24: patient failed PSV trial three attempts today. patinet apneic on spontaneous setting. Protonix gtt DC's. Rectal tube black tarry output appears to be slowing. H+H stable today. Patient alerts spontaneously and tracks, but still unable to follow commands and move with purpose. blood sugar still greater than 200 despite increasing insulin per hour (per JAN). followed MD order/preference for insulin gtt titration multiple times today. patient converted back to sinus rhythm [place] 70-[place] [id number] on 02/04/25 Original Note: assumed care of patient 07:00 on 02/04/25 At 0742: MD notified of patient heart rhythm frequently changing with increased ectopic beats overnight. MD stated obtain EKG. EKG showed Aflutter. (see EKG charting for more detail)
[2025-02-04 10:10] LABS: Magnesium 2.3 mg/dL (1.6-2.6)
[2025-02-04 10:52] LABS: Glucose, Whole Blood 238 mg/dL (60-115)
[2025-02-04 11:24] LABS: Glucose, Whole Blood 227 mg/dL (60-115)
--- NOTE | 2025-02-04 12:02 | PM.CCPN ---
Subjective Subjective Date of Service: 02/04/25 Critical Care Time (minutes): 35 Comment: Remains on ventilator, off propofol, continues to have poor mental status. Blood sugars high while on TPN, currently insulin drip Hemoglobin stable at 8.1 this morning Physical Exam Vital Signs: Vital Signs: Last Vital Signs Temp 99.0 F 02/04/25 11:00 Pulse 70 02/04/25 11:36 Resp 16 02/04/25 11:36 BP 152/52 H 02/04/25 11:00 Pulse Ox 100 02/04/25 11:00 O2 Del Method Mechanical Ventil ation 02/04/25 11:00 O2 Flow Rate 21 02/03/25 06:00 FiO2 21 02/04/25 11:36 BMI result Body Mass Index 17.2 General: Elderly lady chronically ill and tired appearing on the ventilator Nutritional Appearance: well nourished and overweight Eyes: appearance normal, both eyes and all related structures; Alignment and Position: alignment normal and position normal Neck: No lymphadenopathy, no thyromegaly Resp: bilateral air entry equal, occasional added sounds present, ET tube in placed Cardio: Regular rate, regular rhythm; Heart sounds: S1 normal heart sound present and S2 normal heart sound present GI: soft, nontender, no guarding, no hepatosplenomegaly : bladder normal to inspection, bladder normal to palpation, no renal angle tenderness Skin: no rashes or lesions noted and elasticity normal Neuro: Poor mental status, not following commands Objective Data Labs 02/04/25 04:18 02/04/25 04:18 Labs: Laboratory Results - last 24 hr 02/02/25 02/03/25 02/03/25 07:27 12:49 15:09 WBC RBC Hgb Hct MCV MCH MCHC RDW Plt Count MPV Immature Gran % (Auto) Neut % (Auto) Lymph % (Auto) Carbon % (Auto) Eos % (Auto) Baso % (Auto) Lymph # (Auto) Carbon # (Auto) Eos # (Auto) Baso # (Auto) Abs Immat Gran (auto) Absolute Neuts (auto) Absolute Nucleated RBC Nucleated RBC % (auto) VBG pH VBG pCO2 VBG pO2 VBG HCO3 VBG O2 Saturation VBG Base Excess Sodium Potassium Chloride Carbon Dioxide Anion Gap BUN Creatinine Estim Creat Clear Calc Estimated GFR POC Glucose 455 H* 454 H* Random Glucose Calcium Phosphorus Magnesium Total Bilirubin AST ALT Alkaline Phosphatase Total Protein Albumin Blood Type A Positive Antibody Screen NEGATIVE Crossmatch See Detail 02/03/25 02/03/25 02/03/25 16:06 16:08 17:07 WBC RBC Hgb Hct MCV MCH MCHC RDW Plt Count MPV Immature Gran % (Auto) Neut % (Auto) Lymph % (Auto) Carbon % (Auto) Eos % (Auto) Baso % (Auto) Lymph # (Auto) Carbon # (Auto) Eos # (Auto) Baso # (Auto) Abs Immat Gran (auto) Absolute Neuts (auto) Absolute Nucleated RBC Nucleated RBC % (auto) VBG pH VBG pCO2 VBG pO2 VBG HCO3 VBG O2 Saturation VBG Base Excess Sodium Potassium Chloride Carbon Dioxide Anion Gap BUN Creatinine Estim Creat Clear Calc Estimated GFR POC Glucose 458 H* 503 H* 406 H* Random Glucose Calcium Phosphorus Magnesium Total Bilirubin AST ALT Alkaline Phosphatase Total Protein Albumin Blood Type Antibody Screen Crossmatch 02/03/25 02/03/25 02/03/25 17:10 18:12 18:15 WBC RBC Hgb Hct MCV MCH MCHC RDW Plt Count MPV Immature Gran % (Auto) Neut % (Auto) Lymph % (Auto) Carbon % (Auto) Eos % (Auto) Baso % (Auto) Lymph # (Auto) Carbon # (Auto) Eos # (Auto) Baso # (Auto) Abs Immat Gran (auto) Absolute Neuts (auto) Absolute Nucleated RBC Nucleated RBC % (auto) VBG pH VBG pCO2 VBG pO2 VBG HCO3 VBG O2 Saturation VBG Base Excess Sodium Potassium Chloride Carbon Dioxide Anion Gap BUN Creatinine Estim Creat Clear Calc Estimated GFR POC Glucose 433 H* 502 H* 469 H* Random Glucose Calcium Phosphorus Magnesium Total Bilirubin AST ALT Alkaline Phosphatase Total Protein Albumin Blood Type Antibody Screen Crossmatch 02/03/25 02/03/25 02/03/25 19:08 19:10 20:02 WBC RBC Hgb Hct MCV MCH MCHC RDW Plt Count MPV Immature Gran % (Auto) Neut % (Auto) Lymph % (Auto) Carbon % (Auto) Eos % (Auto) Baso % (Auto) Lymph # (Auto) Carbon # (Auto) Eos # (Auto) Baso # (Auto) Abs Immat Gran (auto) Absolute Neuts (auto) Absolute Nucleated RBC Nucleated RBC % (auto) VBG pH VBG pCO2 VBG pO2 VBG HCO3 VBG O2 Saturation VBG Base Excess Sodium Potassium Chloride Carbon Dioxide Anion Gap BUN Creatinine Estim Creat Clear Calc Estimated GFR POC Glucose 483 H* 493 H* 433 H* Random Glucose Calcium Phosphorus Magnesium Total Bilirubin AST ALT Alkaline Phosphatase Total Protein Albumin Blood Type Antibody Screen Crossmatch 02/03/25 02/03/25 02/03/25 20:12 20:57 21:57 WBC RBC Hgb 8.4 L D Hct 23.4 L D MCV MCH MCHC RDW Plt Count MPV Immature Gran % (Auto) Neut % (Auto) Lymph % (Auto) Carbon % (Auto) Eos % (Auto) Baso % (Auto) Lymph # (Auto) Carbon # (Auto) Eos # (Auto) Baso # (Auto) Abs Immat Gran (auto) Absolute Neuts (auto) Absolute Nucleated RBC Nucleated RBC % (auto) VBG pH VBG pCO2 VBG pO2 VBG HCO3 VBG O2 Saturation VBG Base Excess Sodium 131 L Potassium 2.9 L* Chloride 95 L Carbon Dioxide 21 L Anion Gap 18 BUN 85 H Creatinine 3.49 H Estim Creat Clear Calc 10.8 Estimated GFR 13 POC Glucose 442 H* 371 H* Random Glucose 481 H* Calcium 9.0 Phosphorus Magnesium Total Bilirubin AST ALT Alkaline Phosphatase Total Protein Albumin Blood Type Antibody Screen Crossmatch 02/03/25 02/03/25 02/04/25 23:00 23:53 00:56 WBC RBC Hgb Hct MCV MCH MCHC RDW Plt Count MPV Immature Gran % (Auto) Neut % (Auto) Lymph % (Auto) Carbon % (Auto) Eos % (Auto) Baso % (Auto) Lymph # (Auto) Carbon # (Auto) Eos # (Auto) Baso # (Auto) Abs Immat Gran (auto) Absolute Neuts (auto) Absolute Nucleated RBC Nucleated RBC % (auto) VBG pH VBG pCO2 VBG pO2 VBG HCO3 VBG O2 Saturation VBG Base Excess Sodium Potassium Chloride Carbon Dioxide Anion Gap BUN Creatinine Estim Creat Clear Calc Estimated GFR POC Glucose 341 H 312 H 269 H Random Glucose Calcium Phosphorus Magnesium Total Bilirubin AST ALT Alkaline Phosphatase Total Protein Albumin Blood Type Antibody Screen Crossmatch 02/04/25 02/04/25 02/04/25 03:01 04:05 04:18 WBC 18.5 H RBC 2.59 L Hgb 8.1 L Hct 22.7 L MCV 87.6 MCH 31.3 MCHC 35.7 H RDW 15.0 Plt Count 167 MPV 12.2 Immature Gran % (Auto) 5.0 H Neut % (Auto) 81.6 H Lymph % (Auto) 5.2 L Carbon % (Auto) 6.7 Eos % (Auto) 1.2 Baso % (Auto) 0.3 Lymph # (Auto) 1.0 L Carbon # (Auto) 1.3 H Eos # (Auto) 0.2 Baso # (Auto) 0.1 Abs Immat Gran (auto) 0.93 H Absolute Neuts (auto) 15.1 H Absolute Nucleated RBC 0.040 H Nucleated RBC % (auto) 0.2 VBG pH VBG pCO2 VBG pO2 VBG HCO3 VBG O2 Saturation VBG Base Excess Sodium 133 L Potassium 3.1 L Chloride 97 Carbon Dioxide 19 L Anion Gap 20 BUN 91 H Creatinine 3.67 H Estim Creat Clear Calc 10.3 Estimated GFR 12 POC Glucose 235 H 229 H Random Glucose 218 H Calcium 9.1 Phosphorus 4.0 Magnesium 2.3 Total Bilirubin 0.5 AST 169 H ALT 199 H Alkaline Phosphatase 68 Total Protein 5.8 L Albumin 2.8 L Blood Type Antibody Screen Crossmatch 02/04/25 02/04/25 02/04/25 04:21 05:01 06:04 WBC RBC Hgb Hct MCV MCH MCHC RDW Plt Count MPV Immature Gran % (Auto) Neut % (Auto) Lymph % (Auto) Carbon % (Auto) Eos % (Auto) Baso % (Auto) Lymph # (Auto) Carbon # (Auto) Eos # (Auto) Baso # (Auto) Abs Immat Gran (auto) Absolute Neuts (auto) Absolute Nucleated RBC Nucleated RBC % (auto) VBG pH 7.54 H VBG pCO2 27 VBG pO2 40 VBG HCO3 23 VBG O2 Saturation 69.0 VBG Base Excess 1.5 Sodium Potassium Chloride Carbon Dioxide Anion Gap BUN Creatinine Estim Creat Clear Calc Estimated GFR POC Glucose 200 H 276 H Random Glucose Calcium Phosphorus Magnesium Total Bilirubin AST ALT Alkaline Phosphatase Total Protein Albumin Blood Type Antibody Screen Crossmatch 02/04/25 02/04/25 02/04/25 07:02 08:38 09:11 WBC RBC Hgb Hct MCV MCH MCHC RDW Plt Count MPV Immature Gran % (Auto) Neut % (Auto) Lymph % (Auto) Carbon % (Auto) Eos % (Auto) Baso % (Auto) Lymph # (Auto) Carbon # (Auto) Eos # (Auto) Baso # (Auto) Abs Immat Gran (auto) Absolute Neuts (auto) Absolute Nucleated RBC Nucleated RBC % (auto) VBG pH VBG pCO2 VBG pO2 VBG HCO3 VBG O2 Saturation VBG Base Excess Sodium Potassium Chloride Carbon Dioxide Anion Gap BUN Creatinine Estim Creat Clear Calc Estimated GFR POC Glucose 238 H 223 H 224 H Random Glucose Calcium Phosphorus Magnesium Total Bilirubin AST ALT Alkaline Phosphatase Total Protein Albumin Blood Type Antibody Screen Crossmatch 02/04/25 02/04/25 10:48 11:20 WBC RBC Hgb Hct MCV MCH MCHC RDW Plt Count MPV Immature Gran % (Auto) Neut % (Auto) Lymph % (Auto) Carbon % (Auto) Eos % (Auto) Baso % (Auto) Lymph # (Auto) Carbon # (Auto) Eos # (Auto) Baso # (Auto) Abs Immat Gran (auto) Absolute Neuts (auto) Absolute Nucleated RBC Nucleated RBC % (auto) VBG pH VBG pCO2 VBG pO2 VBG HCO3 VBG O2 Saturation VBG Base Excess Sodium Potassium Chloride Carbon Dioxide Anion Gap BUN Creatinine Estim Creat Clear Calc Estimated GFR POC Glucose 238 H 227 H Random Glucose Calcium Phosphorus Magnesium Total Bilirubin AST ALT Alkaline Phosphatase Total Protein Albumin Blood Type Antibody Screen Crossmatch Microbiology Microbiology Results: Microbiology 01/19/25 07:38 Blood - Venous Blood Culture - Final No growth after 5 days. 01/19/25 07:14 Blood - Venous Blood Culture - Final No growth after 5 days. Progress Note: A&P Assessment and plan (1) HTN (hypertension): Status: Acute (2) Heart failure: Status: Acute (3) Acute combined systolic and diastolic congestive heart failure: Status: Acute (4) Acute kidney injury superimposed on CKD: Status: Acute (5) Hypernatremia: Status: Acute (6) Acute hypoxic respiratory failure: Status: Acute (7) Pulmonary edema: Status: Acute (8) Pneumonia: Status: Acute Plan 79-year-old lady with underlying history of hypertension, hyperlipidemia, diabetes mellitus, CAD, CVA with right-sided hemiparesis, hypothyroidism, LUANA admitted on 01/19/2025 with acute hypoxic respiratory failure and alteration of mental status requiring intubation and ventilatory support. Patient treated for pulmonary edema with diuresis with significant improvement, and also empiric antibiotics for overlying pneumonia. Extubated uneventfully on 01/22/2025, postextubation her respiratory status slowly worsened with deconditioning eventually needing BiPAP and failing BiPAP needing re-intubation 01/29/2025, although the oxygen requirement is very minimal unable to wean from ventilator due to poor mental status and poor respiratory efforts. Her KAI worsened and she has started on hemodialysis 01/27/2025. Ongoing goals of care discussion with the family regarding transition to comfort care. Neuro: Acute encephalopathy possibly due to metabolic encephalopathy Off propofol since this morning, continues to have poor mental status Close neurological status monitoring in the ICU every hour Cardiac: acute on chronic heart failure: EF 29%, grade 2 diastolic dysfunction, moderate TR continue carvedilol, hydralazine and Isordil paroxysmal atrial fibrillation: one episode 15 minutes on 01/29/2025 only on prophylactic heparin, we will withhold on therapeutic anticoagulation given massive upper GI bleed and still has a duodenal ulcer Respiratory: Had to be intubated on 01/29/2025 due to respiratory decompensation due to respiratory fatigue On ventilator support this morning PRVC mode FiO2: 21% PEEP:5 TV:400 RR:20, failed weaning trials multiple times this morning due to poor minute ventilation or apnea Ventilator management bundle Head end elevation, chlorhexidine oral care, daily spontaneous awakening trials, daily spontaneous breathing trials, bronchodilators as needed GI: Patient had large volume upper GI coffee ground emesis which was suctioned through OG tube Emergent upper GI endoscopy showed a large duodenal ulcer with a bleeding vessel which was clipped. Interventional Radiology could not find any active extravasation but the artery supplying the ulcer has been embolized Hb stable overnight 8.1 this morning. Received unit of PRBC transfusion yesterday with dialysis on continous pantoprazole infusion, on oral sucralfate suspension on PPN as she has poor nutrition, not cleared for feeds yet, okay to give meds Renal: Acute on chronic renal failure: urine output improving about 835cc in the past 24hrs, BUN and creatinine continues to increase, up to 6 this morning. 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, , no possibly has not ATN for unknown reasons, and now has further insults with drop in hemoglobin, hemorrhagic shock and contrast for embolization of the heart Urinalysis bland, poor response to volume replacement Initiated on renal placement therapy, for session of dialysis on 01/27/2025, 2nd session on 01/29/2025, 3 rd session on 02/02/2025, 4th of 02/03/2025 We will closely monitor I's and O's Avoid nephrotoxic medications Acute hypokalemia: secondary to insulin drip will replace as per protocol will repeat BMP Heme: Acute blood loss anemia: Secondary to upper GI bleed, received 6 units of PRBC transfusion, target to keep hemoglobin above 7. Hemoglobin stable overnight INR 1.2 Endocrine: Blood sugars under control Sliding scale insulin as needed Infectious disease: antibiotics has been escalated to Zosyn given fever Musculoskeletal: Decubitus ulcer prevention protocol Lines: peripheral Prophylaxis: heparin withheld, SCD, pantoprazole Quality Stroke Does the patient have a stroke diagnosis?: No VTE Prior VTE?: No VTE Risk Level:: Medical - moderate - high VTE Device Contraindication: N/A - Device Ordered VTE Drug Contraindication: N/A - Med Ordered
[2025-02-04 12:05] LABS: Glucose, Whole Blood 221 mg/dL (60-115)
[2025-02-04] MEDS: Insulin Regular/NS 100 UNIT/100 ML PLAST..BAG 11 UNIT IVCONT (12:05)
[2025-02-04 13:05] LABS: Glucose, Whole Blood 217 mg/dL (60-115)
[2025-02-04 14:35] LABS: Glucose, Whole Blood 219 mg/dL (60-115)
[2025-02-04 15:04] LABS: Glucose, Whole Blood 215 mg/dL (60-115)
[2025-02-04 16:09] LABS: Glucose, Whole Blood 214 mg/dL (60-115)
[2025-02-04] MEDS: Pantoprazole Sodium 40 MG/10 ML VIAL IVPUSH (16:14)
[2025-02-04 17:02] LABS: Glucose, Whole Blood 200 mg/dL (60-115)
[2025-02-04 18:03] LABS: Glucose, Whole Blood 206 mg/dL (60-115)
[2025-02-04 19:03] LABS: Glucose, Whole Blood 201 mg/dL (60-115)
[2025-02-04 19:58] LABS: Glucose, Whole Blood 194 mg/dL (60-115)
[2025-02-04] MEDS: Insulin Regular/NS 100 UNIT/100 ML PLAST..BAG 12 UNIT IVCONT (20:11)
[2025-02-04 21:14] LABS: Glucose, Whole Blood 203 mg/dL (60-115)
[2025-02-04] MEDS: Parenteral Nutrition 1,680 ML 70 ML IV (21:26)
[2025-02-04 23:15] LABS: Glucose, Whole Blood 197 mg/dL (60-115)
[2025-02-05] VITALS (41 sets, daily range): BP systolic 111–158; BP diastolic 32–63; PULSE 67–87; RESP 12–26; TEMP 34.3–37.6; O2SAT 75–99; BMI 18.9
[2025-02-05] MEDS: guaiFENesin 100 MG/5 ML 5 ML LIQUID PO ×3 (00:25→08:31)
[2025-02-05 01:04] LABS: Glucose, Whole Blood 234 mg/dL (60-115)
[2025-02-05 01:09] LABS: Glucose, Whole Blood 244 mg/dL (60-115)
[2025-02-05 03:03] LABS: Glucose, Whole Blood 259 mg/dL (60-115)
[2025-02-05] MEDS: Insulin Regular/NS 100 UNIT/100 ML PLAST..BAG 14 UNIT IVCONT (03:58)
[2025-02-05] MEDS: Piperacillin Sodium/Tazobactam 2.25 GM in 0.9 % Sodium Chloride 50 ML IV ×4 (04:20→22:58)
[2025-02-05 04:58] LABS: Basophils Percent Auto 0.1 % (0-2); Hemoglobin 7.2 g/dl (12.0-16.0); Imm Gran Abs Auto 0.74 X10*3/uL (0.00-0.03); Imm Gran Pct Auto 3.1 % (0.0-0.4); Lymphocytes Absolute Auto 0.5 X10*3/uL (1.2-4.9); Lymphocytes Percent Auto 2.2 % (20-40); MANUAL DIFF FLAG SCAN; Mean Corpuscular HGB Conc 35.1 g/dl (31.0-35.0); Mean Corpuscular Volume 88.4 fL (80.0-98.0); Mean Platelet Volume 11.6 fL (9.4-12.3); Monocytes Absolute Auto 0.8 X10*3/uL (0.1-1.2); Monocytes Percent Auto 3.2 % (2-11); Neutrophils Absolute Auto 21.8 x10*3/uL (2.0-8.3); Neutrophils Percent Auto 91.4 % (45-73); Platelet Count 158 X10*3/uL (160-400); Red Blood Count 2.32 X10*6/uL (4.20-5.50); Red Cell Distribution Width 15.3 % (11.0-16.0); SCAN SMEAR FLAG 1; White Blood Count 23.8 X10*3/uL (4.8-10.8)
[2025-02-05 05:01] LABS: Glucose, Whole Blood 270 mg/dL (60-115); VBG Base Excess -6.7 mmol/L; VBG HCO3 16 mmol/L (22-26); VBG pCO2 23 mmHg; VBG pH 7.44 (7.32-7.43); VBG pO2 55 mmHg
[2025-02-05 05:04] LABS: Venous Blood Gas Refer to POC result
[2025-02-05 05:06] LABS: Hematocrit 20.5 % (37.0-47.0)
[2025-02-05] MEDS: Pantoprazole Sodium 40 MG/10 ML VIAL IVPUSH ×2 (05:11→17:04)
[2025-02-05] MEDS: Levothyroxine Sodium 125 MCG TABLET PO (05:12)
[2025-02-05] MEDS: Albuterol/Iprat 2.5/0.5MG 3 ML AMPUL.NEB INHALE ×3 (05:13→18:18)
[2025-02-05 05:19] LABS: SLIDE REVIEW VERIFIED
[2025-02-05 05:20] LABS: Alkaline Phosphatase 70 U/L (39-117)
[2025-02-05 05:23] LABS: Alanine Aminotransferase 148 U/L (0-31); Albumin Level 2.6 g/dL (3.5-5.0); Anion Gap 23 (12-20); Aspartate Amino Transferase 79 U/L (5-31); Bilirubin Total 0.4 mg/dL (0.0-1.0); Blood Urea Nitrogen 110 mg/dL (9-16); Calcium 9.4 mg/dL (8.4-10.2); Carbon Dioxide 13 mmol/L (22-29); Chloride 93 mmol/L (96-108); Creatinine Clr Calc Pharmacy 8.7; Estimated Glomerular Filt Rate 9; Glucose Random 280 mg/dL (60-115); Magnesium 2.4 mg/dL (1.6-2.6); Phosphorus 4.5 mg/dL (2.7-4.5); Potassium 2.3 mmol/L (3.3-5.1); Sodium 127 mmol/L (135-145); Total Protein 5.5 g/dL (6.5-8.0)
[2025-02-05] MEDS: Potassium Chloride Packet 20 MEQ PACKET 40 MEQ PO (05:50)
[2025-02-05] MEDS: Sodium Bicarbonate 8.4% 50 MEQ/50 ML SYRINGE 100 MEQ IVPUSH (05:51)
--- NOTE | 2025-02-05 06:17 | PC.NURSE ---
Assumed care 1900 - pt off sedation, opens eyes spontaneously and tracks, does not follow commands. Remains on PC settings - see vent assessment. HR 60s, SR on tele, junctional at times. On insulin gtt - see MAR for titrations. Lantus increased to 20 units Q12H per JORY Fernando - see MAR. Fecal management tube patent - draining tarry liquid stool, total output 600 ml.
[2025-02-05 07:09] LABS: Glucose, Whole Blood 303 mg/dL (60-115)
--- NOTE | 2025-02-05 08:07 | PM.CCPN ---
Subjective Subjective Date of Service: 02/05/25 Critical Care Time (minutes): 60 Physical Exam Vital Signs: Vital Signs: Last Vital Signs Temp 98.2 F 02/05/25 08:00 Pulse 69 02/05/25 08:00 Resp 15 02/05/25 08:00 BP 137/49 L 02/05/25 08:00 Pulse Ox 99 02/05/25 08:00 O2 Del Method Mechanical Ventil ation 02/05/25 08:00 O2 Flow Rate 21 02/03/25 06:00 FiO2 21 02/05/25 08:00 BMI result Body Mass Index 18.9 Const: Other: opens eyes spontaneously; does not follow commands General: comfortable, no acute distress, well developed, alert and awake HEENT: Head: Yes normal to inspection, Yes normocephalic and Yes atraumatic Eyes: General: appearance normal, both eyes and all related structures Neck: Neck: Yes normal visual inspection, Yes full ROM, Yes no meningeal signs, Yes trachea midline and Yes supple Chest: Chest palpation & inspection: normal inspection of the chest Resp: Other: no appreciable overt rales, rhonchi, wheezing Effort & Inspection: normal respiratory effort Cardio: Rate: regular rate Rhythm: regular rhythm GI: Inspection: Yes normal to inspection, No Abdominal wall edema and No distended Palpation (GI): Soft to palpation, not firm, nontender, no guarding and not rigid Skin: General skin exam: no rashes or lesions noted Neuro: General: tone normal and no meningeal signs Extrem: Other: appreciable 1+ pitting edema to bilateral shins General: Yes normal to inspection, Yes full ROM and Yes capillary refill normal Psych: Other: unable to assess Objective Data Labs 02/05/25 04:45 02/05/25 04:45 Labs: Laboratory Results - last 24 hr 02/02/25 02/04/25 02/04/25 07:27 04:18 08:38 WBC RBC Hgb Hct MCV MCH MCHC RDW Plt Count MPV Immature Gran % (Auto) Neut % (Auto) Lymph % (Auto) Russell % (Auto) Eos % (Auto) Baso % (Auto) Lymph # (Auto) Russell # (Auto) Eos # (Auto) Baso # (Auto) Abs Immat Gran (auto) Absolute Neuts (auto) Absolute Nucleated RBC Nucleated RBC % (auto) Smear Tech's Comments VBG pH VBG pCO2 VBG pO2 VBG HCO3 VBG O2 Saturation VBG Base Excess Sodium Potassium Chloride Carbon Dioxide Anion Gap BUN Creatinine Estim Creat Clear Calc Estimated GFR POC Glucose 223 H Random Glucose Calcium Phosphorus 4.0 Magnesium 2.3 Total Bilirubin AST ALT Alkaline Phosphatase Total Protein Albumin Blood Type A Positive Antibody Screen NEGATIVE Crossmatch See Detail 02/04/25 02/04/25 02/04/25 09:11 10:48 11:20 WBC RBC Hgb Hct MCV MCH MCHC RDW Plt Count MPV Immature Gran % (Auto) Neut % (Auto) Lymph % (Auto) Russell % (Auto) Eos % (Auto) Baso % (Auto) Lymph # (Auto) Russell # (Auto) Eos # (Auto) Baso # (Auto) Abs Immat Gran (auto) Absolute Neuts (auto) Absolute Nucleated RBC Nucleated RBC % (auto) Smear Tech's Comments VBG pH VBG pCO2 VBG pO2 VBG HCO3 VBG O2 Saturation VBG Base Excess Sodium Potassium Chloride Carbon Dioxide Anion Gap BUN Creatinine Estim Creat Clear Calc Estimated GFR POC Glucose 224 H 238 H 227 H Random Glucose Calcium Phosphorus Magnesium Total Bilirubin AST ALT Alkaline Phosphatase Total Protein Albumin Blood Type Antibody Screen Crossmatch 02/04/25 02/04/25 02/04/25 12:02 13:01 14:30 WBC RBC Hgb Hct MCV MCH MCHC RDW Plt Count MPV Immature Gran % (Auto) Neut % (Auto) Lymph % (Auto) Russell % (Auto) Eos % (Auto) Baso % (Auto) Lymph # (Auto) Russell # (Auto) Eos # (Auto) Baso # (Auto) Abs Immat Gran (auto) Absolute Neuts (auto) Absolute Nucleated RBC Nucleated RBC % (auto) Smear Tech's Comments VBG pH VBG pCO2 VBG pO2 VBG HCO3 VBG O2 Saturation VBG Base Excess Sodium Potassium Chloride Carbon Dioxide Anion Gap BUN Creatinine Estim Creat Clear Calc Estimated GFR POC Glucose 221 H 217 H 219 H Random Glucose Calcium Phosphorus Magnesium Total Bilirubin AST ALT Alkaline Phosphatase Total Protein Albumin Blood Type Antibody Screen Crossmatch 02/04/25 02/04/25 02/04/25 15:00 16:05 16:59 WBC RBC Hgb Hct MCV MCH MCHC RDW Plt Count MPV Immature Gran % (Auto) Neut % (Auto) Lymph % (Auto) Russell % (Auto) Eos % (Auto) Baso % (Auto) Lymph # (Auto) Russell # (Auto) Eos # (Auto) Baso # (Auto) Abs Immat Gran (auto) Absolute Neuts (auto) Absolute Nucleated RBC Nucleated RBC % (auto) Smear Tech's Comments VBG pH VBG pCO2 VBG pO2 VBG HCO3 VBG O2 Saturation VBG Base Excess Sodium Potassium Chloride Carbon Dioxide Anion Gap BUN Creatinine Estim Creat Clear Calc Estimated GFR POC Glucose 215 H 214 H 200 H Random Glucose Calcium Phosphorus Magnesium Total Bilirubin AST ALT Alkaline Phosphatase Total Protein Albumin Blood Type Antibody Screen Crossmatch 02/04/25 02/04/25 02/04/25 17:59 18:59 19:55 WBC RBC Hgb Hct MCV MCH MCHC RDW Plt Count MPV Immature Gran % (Auto) Neut % (Auto) Lymph % (Auto) Russell % (Auto) Eos % (Auto) Baso % (Auto) Lymph # (Auto) Russell # (Auto) Eos # (Auto) Baso # (Auto) Abs Immat Gran (auto) Absolute Neuts (auto) Absolute Nucleated RBC Nucleated RBC % (auto) Smear Tech's Comments VBG pH VBG pCO2 VBG pO2 VBG HCO3 VBG O2 Saturation VBG Base Excess Sodium Potassium Chloride Carbon Dioxide Anion Gap BUN Creatinine Estim Creat Clear Calc Estimated GFR POC Glucose 206 H 201 H 194 H Random Glucose Calcium Phosphorus Magnesium Total Bilirubin AST ALT Alkaline Phosphatase Total Protein Albumin Blood Type Antibody Screen Crossmatch 02/04/25 02/04/25 02/05/25 21:11 23:07 01:00 WBC RBC Hgb Hct MCV MCH MCHC RDW Plt Count MPV Immature Gran % (Auto) Neut % (Auto) Lymph % (Auto) Russell % (Auto) Eos % (Auto) Baso % (Auto) Lymph # (Auto) Russell # (Auto) Eos # (Auto) Baso # (Auto) Abs Immat Gran (auto) Absolute Neuts (auto) Absolute Nucleated RBC Nucleated RBC % (auto) Smear Tech's Comments VBG pH VBG pCO2 VBG pO2 VBG HCO3 VBG O2 Saturation VBG Base Excess Sodium Potassium Chloride Carbon Dioxide Anion Gap BUN Creatinine Estim Creat Clear Calc Estimated GFR POC Glucose 203 H 197 H 234 H Random Glucose Calcium Phosphorus Magnesium Total Bilirubin AST ALT Alkaline Phosphatase Total Protein Albumin Blood Type Antibody Screen Crossmatch 03/09/2202/05/25 02/05/25 01:06 03:00 04:45 WBC 23.8 H RBC 2.32 L Hgb 7.2 L Hct 20.5 L* MCV 88.4 MCH 31.0 MCHC 35.1 H RDW 15.3 Plt Count 158 L MPV 11.6 Immature Gran % (Auto) 3.1 H Neut % (Auto) 91.4 H Lymph % (Auto) 2.2 L Russell % (Auto) 3.2 Eos % (Auto) 0.0 Baso % (Auto) 0.1 Lymph # (Auto) 0.5 L Russell # (Auto) 0.8 Eos # (Auto) 0.0 Baso # (Auto) 0.0 Abs Immat Gran (auto) 0.74 H Absolute Neuts (auto) 21.8 H Absolute Nucleated RBC 0.000 Nucleated RBC % (auto) 0.0 Smear Tech's Comments VERIFIED VBG pH VBG pCO2 VBG pO2 VBG HCO3 VBG O2 Saturation VBG Base Excess Sodium 127 L Potassium 2.3 L* D Chloride 93 L Carbon Dioxide 13 L Anion Gap 23 H BUN 110 H Creatinine 4.69 H* Estim Creat Clear Calc 8.7 Estimated GFR 9 POC Glucose 244 H 259 H Random Glucose 280 H Calcium 9.4 Phosphorus 4.5 Magnesium 2.4 Total Bilirubin 0.4 AST 79 H ALT 148 H Alkaline Phosphatase 70 Total Protein 5.5 L Albumin 2.6 L Blood Type Antibody Screen Crossmatch 02/05/25 02/05/25 04:57 07:05 WBC RBC Hgb Hct MCV MCH MCHC RDW Plt Count MPV Immature Gran % (Auto) Neut % (Auto) Lymph % (Auto) Russell % (Auto) Eos % (Auto) Baso % (Auto) Lymph # (Auto) Russell # (Auto) Eos # (Auto) Baso # (Auto) Abs Immat Gran (auto) Absolute Neuts (auto) Absolute Nucleated RBC Nucleated RBC % (auto) Smear Tech's Comments VBG pH 7.44 H VBG pCO2 23 VBG pO2 55 VBG HCO3 16 L VBG O2 Saturation Not Reportable VBG Base Excess -6.7 Sodium Potassium Chloride Carbon Dioxide Anion Gap BUN Creatinine Estim Creat Clear Calc Estimated GFR POC Glucose 270 H 303 H Random Glucose Calcium Phosphorus Magnesium Total Bilirubin AST ALT Alkaline Phosphatase Total Protein Albumin Blood Type Antibody Screen Crossmatch Microbiology Microbiology Results: Microbiology 01/19/25 07:38 Blood - Venous Blood Culture - Final No growth after 5 days. 01/19/25 07:14 Blood - Venous Blood Culture - Final No growth after 5 days. Progress Note: A&P Assessment and plan (1) Heart failure: Status: Acute (2) Respiratory failure: Status: Acute (3) Renal failure: Status: Acute Plan Patient is a 79 Y F w/ hypertension, hyperlipidemia, diabetes mellitus, c/b CAD, prior CVA c/b R hemiparesis, hypothyroidism, and LUANA presenting from nursing facility to emergency department on 01/19 w/ obtundation, found to be hypoxic; in emergency department, patient intubated 01/19, found to have CT C c/f pulmonary edema and/or pneumonia, extubated 01/22, though c/b persistent respiratory failure d/t weakness, re-intubated 01/29; ICU course c/b renal failure, initiated on hemodialysis 01/27 and hyperglycemia N: encephalopathy, likely toxic-metabolic CV: HFrEF; hypertension; atrial fibrillation previously on apixaban, though held in setting of upper GI bleed R: persistent respiratory failure, intuabted 01/19, extubated 01/22, re-intubated 01/29, wean as tolerated GI: upper GI bleed d/t duodenal ulcer s/p clipping, embolization, PPI; PPN : acute renal failure, initiated on hemodialysis 01/27, last session 02/03; to appreciate nephrology recommendations; to closely monitor electrolytes H: acute blood loss anemia d/t upper GI bleed; transfusions as needed; DVT prophylaxis w/ mechanical devices ID: empiric zosyn in setting of fever E: hyperglycemia, on insulin gtt P: no acute issues S: ongoing goals of care discussions w/ daughters Quality Stroke Does the patient have a stroke diagnosis?: No VTE Prior VTE?: No VTE Risk Level:: Medical - moderate - high VTE Device Contraindication: N/A - Device Ordered VTE Drug Contraindication: N/A - Med Ordered
[2025-02-05] MEDS: Sucralfate Oral Suspension 1 GM/10 ML ORAL.SUSP PO ×4 (08:30→20:35)
[2025-02-05] MEDS: Isosorbide Dinitrate 20 MG TABLET PO ×3 (08:31→17:05)
[2025-02-05] MEDS: Chlorhexidine Gluc Oral Rinse 15 ML MOUTHWASH BUCCAL ×3 (08:31→20:35)
[2025-02-05] MEDS: carvediloL 25 MG TABLET PO ×2 (08:31→20:35)
[2025-02-05] MEDS: hydrALAZINE HCl 50 MG TABLET PO ×4 (08:31→20:35)
[2025-02-05] MEDS: 0.9 % Sodium Chloride Flush 3 ML SYRINGE IVFLUSH ×3 (08:31→22:59)
[2025-02-05] MEDS: Insulin Glargine,Hum.rec.anlog 100 UNIT/ML 10 ML VIAL 20 UNIT SUBCUT (08:32)
[2025-02-05 08:33] LABS: Glucose, Whole Blood 297 mg/dL (60-115)
[2025-02-05 09:03] LABS: Glucose, Whole Blood 313 mg/dL (60-115)
[2025-02-05] MEDS: Potassium Phosphate/NS 15 MMOL/250 ML PLAST..BAG 62.5 MMOL IV (09:03)
[2025-02-05] MEDS: Albumin Human 25 % 50 ML 100 ML IV (09:03)
[2025-02-05] MEDS: Insulin Regular/NS 100 UNIT/100 ML PLAST..BAG 19 UNIT IVCONT (09:48)
--- NOTE | 2025-02-05 09:53 | MHC.CLN ---
F/U PT REMAINS INTUBATED REVIEWED LABS DISCUSSED WITH PHARMACY CONTINUE PPN TO 70ML/HR TO PROVIDE 857KCALS, 168G PROTEIN, 71G PROTEIN HOLD LIPIDS NOTED TRIGS 569; PPN PROVIDES 48% ESTIMATED KCAL NEEDS AND 1.25G/KG PROTEIN REPLETE LYTES NEEDED; RECHECK TRIGS
[2025-02-05 10:15] LABS: Glucose, Whole Blood 296 mg/dL (60-115)
[2025-02-05 10:21] LABS: Triglycerides 458 mg/dL (<150)
--- NOTE | 2025-02-05 10:53 | PM.PNNEP ---
Subjective Subjective Date of Service: 02/05/25 Interval history: Seen in follow up. ; s/p EGD 3/ with large duo bulb ulcer not amenable to endoscopic intervention. ; s/p IR guided embolization of GDA as guided by the clip though no active bleeding was noted at the time of angiography; Dialyzed this morning. All recent data reviewed Physical Exam Vital Signs: Vital Signs: Last Vital Signs Temp 98.1 F 02/05/25 10: Pulse 77 02/05/25 10:26 Resp 26 H 02/05/25 10:26 BP 151/63 H 02/05/25 10: Pulse Ox 98 02/05/25 10:00 O2 Del Method Mechanical Ventil ation 02/05/25 10:00 O2 Flow Rate 21 02/03/25 06:00 FiO2 21 02/05/25 10:00 BMI result Body Mass Index 18.9 Const: General: no acute distress and ill appearing Eyes: EOM: EOMs intact bilaterally Neck: Neck: Yes supple Resp: Auscultation: clear to auscultation bilaterally and diminished lung sounds Cardio: Palpation: no palpable S3 Rate: regular rate Heart sounds: no rubs GI: Palpation (GI): Soft to palpation Auscultation: normal bowel sounds Neuro: Other: Intubated and sedated General: moves all extremities Motor exam (neuro): no asterixis Objective Data Labs 02/05/25 04:45 02/05/25 04:45 Labs: Laboratory Results - last 24 hr 02/02/25 02/04/25 02/04/25 07:27 11:20 12:02 WBC RBC Hgb Hct MCV MCH MCHC RDW Plt Count MPV Immature Gran % (Auto) Neut % (Auto) Lymph % (Auto) [place] % (Auto) Eos % (Auto) Baso % (Auto) Lymph # (Auto) [place] # (Auto) Eos # (Auto) Baso # (Auto) Abs Immat Gran (auto) Absolute Neuts (auto) Absolute Nucleated RBC Nucleated RBC % (auto) Smear Tech's Comments VBG pH VBG pCO2 VBG pO2 VBG HCO3 VBG O2 Saturation VBG Base Excess Sodium Potassium Chloride Carbon Dioxide Anion Gap BUN Creatinine Estim Creat Clear Calc Estimated GFR POC Glucose 227 H 221 H Random Glucose Calcium Phosphorus Magnesium Total Bilirubin AST ALT Alkaline Phosphatase Total Protein Albumin Triglycerides Blood Type A Positive Antibody Screen NEGATIVE Crossmatch See Detail 02/04/25 02/04/25 02/04/25 13:01 14:30 15:00 WBC RBC Hgb Hct MCV MCH MCHC RDW Plt Count MPV Immature Gran % (Auto) Neut % (Auto) Lymph % (Auto) [place] % (Auto) Eos % (Auto) Baso % (Auto) Lymph # (Auto) [place] # (Auto) Eos # (Auto) Baso # (Auto) Abs Immat Gran (auto) Absolute Neuts (auto) Absolute Nucleated RBC Nucleated RBC % (auto) Smear Tech's Comments VBG pH VBG pCO2 VBG pO2 VBG HCO3 VBG O2 Saturation VBG Base Excess Sodium Potassium Chloride Carbon Dioxide Anion Gap BUN Creatinine Estim Creat Clear Calc Estimated GFR POC Glucose 217 H 219 H 215 H Random Glucose Calcium Phosphorus Magnesium Total Bilirubin AST ALT Alkaline Phosphatase Total Protein Albumin Triglycerides Blood Type Antibody Screen Crossmatch 02/04/25 02/04/25 02/04/25 16:05 16:59 17:59 WBC RBC Hgb Hct MCV MCH MCHC RDW Plt Count MPV Immature Gran % (Auto) Neut % (Auto) Lymph % (Auto) [place] % (Auto) Eos % (Auto) Baso % (Auto) Lymph # (Auto) [place] # (Auto) Eos # (Auto) Baso # (Auto) Abs Immat Gran (auto) Absolute Neuts (auto) Absolute Nucleated RBC Nucleated RBC % (auto) Smear Tech's Comments VBG pH VBG pCO2 VBG pO2 VBG HCO3 VBG O2 Saturation VBG Base Excess Sodium Potassium Chloride Carbon Dioxide Anion Gap BUN Creatinine Estim Creat Clear Calc Estimated GFR POC Glucose 214 H 200 H 206 H Random Glucose Calcium Phosphorus Magnesium Total Bilirubin AST ALT Alkaline Phosphatase Total Protein Albumin Triglycerides Blood Type Antibody Screen Crossmatch 02/04/25 02/04/25 02/04/25 18:59 19:55 21:11 WBC RBC Hgb Hct MCV MCH MCHC RDW Plt Count MPV Immature Gran % (Auto) Neut % (Auto) Lymph % (Auto) [place] % (Auto) Eos % (Auto) Baso % (Auto) Lymph # (Auto) [place] # (Auto) Eos # (Auto) Baso # (Auto) Abs Immat Gran (auto) Absolute Neuts (auto) Absolute Nucleated RBC Nucleated RBC % (auto) Smear Tech's Comments VBG pH VBG pCO2 VBG pO2 VBG HCO3 VBG O2 Saturation VBG Base Excess Sodium Potassium Chloride Carbon Dioxide Anion Gap BUN Creatinine Estim Creat Clear Calc Estimated GFR POC Glucose 201 H 194 H 203 H Random Glucose Calcium Phosphorus Magnesium Total Bilirubin AST ALT Alkaline Phosphatase Total Protein Albumin Triglycerides Blood Type Antibody Screen Crossmatch 02/04/25 02/05/25 02/05/25 23:07 01:00 01:06 WBC RBC Hgb Hct MCV MCH MCHC RDW Plt Count MPV Immature Gran % (Auto) Neut % (Auto) Lymph % (Auto) [place] % (Auto) Eos % (Auto) Baso % (Auto) Lymph # (Auto) [place] # (Auto) Eos # (Auto) Baso # (Auto) Abs Immat Gran (auto) Absolute Neuts (auto) Absolute Nucleated RBC Nucleated RBC % (auto) Smear Tech's Comments VBG pH VBG pCO2 VBG pO2 VBG HCO3 VBG O2 Saturation VBG Base Excess Sodium Potassium Chloride Carbon Dioxide Anion Gap BUN Creatinine Estim Creat Clear Calc Estimated GFR POC Glucose 197 H 234 H 244 H Random Glucose Calcium Phosphorus Magnesium Total Bilirubin AST ALT Alkaline Phosphatase Total Protein Albumin Triglycerides Blood Type Antibody Screen Crossmatch 02/05/25 02/05/25 02/05/25 03:00 04:45 04:57 WBC 23.8 H RBC 2.32 L Hgb 7.2 L Hct 20.5 L* MCV 88.4 MCH 31.0 MCHC 35.1 H RDW 15.3 Plt Count 158 L MPV 11.6 Immature Gran % (Auto) 3.1 H Neut % (Auto) 91.4 H Lymph % (Auto) 2.2 L [place] % (Auto) 3.2 Eos % (Auto) 0.0 Baso % (Auto) 0.1 Lymph # (Auto) 0.5 L [place] # (Auto) 0.8 Eos # (Auto) 0.0 Baso # (Auto) 0.0 Abs Immat Gran (auto) 0.74 H Absolute Neuts (auto) 21.8 H Absolute Nucleated RBC 0.000 Nucleated RBC % (auto) 0.0 Smear Tech's Comments VERIFIED VBG pH 7.44 H VBG pCO2 23 VBG pO2 55 VBG HCO3 16 L VBG O2 Saturation Not Reportable VBG Base Excess -6.7 Sodium 127 L Potassium 2.3 L* D Chloride 93 L Carbon Dioxide 13 L Anion Gap 23 H BUN 110 H Creatinine 4.69 H* Estim Creat Clear Calc 8.7 Estimated GFR 9 POC Glucose 259 H 270 H Random Glucose 280 H Calcium 9.4 Phosphorus 4.5 Magnesium 2.4 Total Bilirubin 0.4 AST 79 H ALT 148 H Alkaline Phosphatase 70 Total Protein 5.5 L Albumin 2.6 L Triglycerides 458 H Blood Type Antibody Screen Crossmatch 02/05/25 02/05/25 02/05/25 07:05 08:02 08:59 WBC RBC Hgb Hct MCV MCH MCHC RDW Plt Count MPV Immature Gran % (Auto) Neut % (Auto) Lymph % (Auto) [place] % (Auto) Eos % (Auto) Baso % (Auto) Lymph # (Auto) [place] # (Auto) Eos # (Auto) Baso # (Auto) Abs Immat Gran (auto) Absolute Neuts (auto) Absolute Nucleated RBC Nucleated RBC % (auto) Smear Tech's Comments VBG pH VBG pCO2 VBG pO2 VBG HCO3 VBG O2 Saturation VBG Base Excess Sodium Potassium Chloride Carbon Dioxide Anion Gap BUN Creatinine Estim Creat Clear Calc Estimated GFR POC Glucose 303 H 297 H 313 H Random Glucose Calcium Phosphorus Magnesium Total Bilirubin AST ALT Alkaline Phosphatase Total Protein Albumin Triglycerides Blood Type Antibody Screen Crossmatch 02/05/25 10:07 WBC RBC Hgb Hct MCV MCH MCHC RDW Plt Count MPV Immature Gran % (Auto) Neut % (Auto) Lymph % (Auto) [place] % (Auto) Eos % (Auto) Baso % (Auto) Lymph # (Auto) [place] # (Auto) Eos # (Auto) Baso # (Auto) Abs Immat Gran (auto) Absolute Neuts (auto) Absolute Nucleated RBC Nucleated RBC % (auto) Smear Tech's Comments VBG pH VBG pCO2 VBG pO2 VBG HCO3 VBG O2 Saturation VBG Base Excess Sodium Potassium Chloride Carbon Dioxide Anion Gap BUN Creatinine Estim Creat Clear Calc Estimated GFR POC Glucose 296 H Random Glucose Calcium Phosphorus Magnesium Total Bilirubin AST ALT Alkaline Phosphatase Total Protein Albumin Triglycerides Blood Type Antibody Screen Crossmatch Microbiology Microbiology Results: Microbiology 01/19/25 07:38 Blood - Venous Blood Culture - Final No growth after 5 days. 01/19/25 07:14 Blood - Venous Blood Culture - Final No growth after 5 days. Procedures Date of Service Date of Service: 02/05/25 Assessment & Plan Assessment and plan (1) Acute kidney injury superimposed on CKD: Status: Acute (2) Acute combined systolic and diastolic congestive heart failure: Status: Acute Plan 79-year-old woman with acute kidney injury superimposed on chronic kidney disease. Differential diagnosis for acute kidney injury would include tubular injury. No obstruction based on renal ultrasonogram. Moderately atrophic right kidney. Urine sediments bland therefore glomerular nephritis or interstitial disease seem less likely. Optimize blood pressure. Avoid hypotension. Keep I > O with hypotonic fluids ( free water) Continue to avoid nephrotoxic agents including vancomycin. HD today Time Spent With Patient Time: Total time managing care of this patient today ____ minutes. Progress Note: Quality Stroke Does the patient have a stroke diagnosis?: No
[2025-02-05 11:14] LABS: Glucose, Whole Blood 321 mg/dL (60-115)
[2025-02-05 11:14] LABS: Glucose, Whole Blood 333 mg/dL (60-115)
[2025-02-05 12:09] LABS: Glucose, Whole Blood 326 mg/dL (60-115)
[2025-02-05 13:14] LABS: Glucose, Whole Blood 320 mg/dL (60-115)
--- NOTE | 2025-02-05 13:32 | MHC.CM.PN ---
Pt continues care in ICU: intubated and receiving HD. H&H low today: received PRBC. Goals of care ongoing with family - no change to status at this time.
[2025-02-05 14:05] LABS: Glucose, Whole Blood 299 mg/dL (60-115)
[2025-02-05] MEDS: Insulin Regular/NS 100 UNIT/100 ML PLAST..BAG 23 UNIT IVCONT (14:14)
[2025-02-05 15:10] LABS: Glucose, Whole Blood 232 mg/dL (60-115)
[2025-02-05 16:02] LABS: Glucose, Whole Blood 196 mg/dL (60-115)
--- NOTE | 2025-02-05 16:36 | P.CDIM_ITS ---
PROVIDER RESPONSE TEXT: To clarify, the appropriate diagnosis supported by the clinical indicators: Acute Duodenal ulcer QUERY TEXT: PHYSICIAN'S DOCUMENTATION REQUEST Date of Query: 02/05/2025 11:06 AM EDT Patient Name: Radha Wright Admit Date: 01/19/2025 Dear Carmen Rodriguez MD, A review of the medical record indicates additional documentation may be needed. Please review below and update the documentation accordingly. Clinical Indicators: GI - EGD performed : Duodenum there was a large 2.5 cm deep ulcer in he duodenal bulb, scope could no t traverse by this ulcer. It was not actively bleeding but had an adherent clot and visible vessel. 3 aliquots of 1 cc epinephrine were injected around the ulcer. EGD impression: large cratered duodenal ulcer s/p clipping, embolization, PPI; PPN. Clarify which of the following accurately represents the acuity of the Duodenal ulcer: Possible options might include: Acute Duodenal ulcer Chronic (erosive) Duodenal ulcer Chronic stable condition Other specified Other (explain) Clinically unable to determine (explain) Thank you, Claire Vo, CCS, CDIS Use of terms such as suspected, likely, concern for, or probable (associated with a specific diagnosi s that is being evaluated, monitored, or treated as if it exists) are acceptable and can be coded in the inpatient se tting, when documented at the time of discharge. Please use your independent medical judgment in providing your response. THIS QUERY IS PART OF THE PERMANENT MEDICAL RECORD
[2025-02-05 17:05] LABS: Glucose, Whole Blood 193 mg/dL (60-115)
--- NOTE | 2025-02-05 17:21 | PC.NURSE ---
Assumed care at 0700 - patient remains intubated, alert, unable to follow commands. Tolerated PSV trail. Removed 3.5k w/ dialysis. Care ongoing.
[2025-02-05 18:09] LABS: Glucose, Whole Blood 211 mg/dL (60-115)
[2025-02-05] MEDS: Insulin Regular/NS 100 UNIT/100 ML PLAST..BAG 22 UNIT IVCONT (18:15)
[2025-02-05 19:06] LABS: Glucose, Whole Blood 217 mg/dL (60-115)
[2025-02-05 20:19] LABS: Glucose, Whole Blood 223 mg/dL (60-115)
[2025-02-05 20:47] LABS: Glucose, Whole Blood 191 mg/dL (60-115)
[2025-02-05 21:50] LABS: Glucose, Whole Blood 164 mg/dL (60-115)
[2025-02-05 22:35] LABS: Glucose, Whole Blood 144 mg/dL (60-115)
[2025-02-05 23:56] LABS: Glucose, Whole Blood 133 mg/dL (60-115)
[2025-02-06] VITALS (38 sets, daily range): BP systolic 97–160; BP diastolic 45–81; PULSE 49–73; RESP 12–24; TEMP 34.7–37.6; O2SAT 97–99; BMI 18.7
[2025-02-06 00:31] LABS: Glucose, Whole Blood 159 mg/dL (60-115)
[2025-02-06] MEDS: Albuterol/Iprat 2.5/0.5MG 3 ML AMPUL.NEB INHALE ×3 (00:55→11:29)
[2025-02-06 01:33] LABS: Glucose, Whole Blood 190 mg/dL (60-115)
[2025-02-06] MEDS: Insulin Regular/NS 100 UNIT/100 ML PLAST..BAG 6 UNIT IVCONT (01:42)
[2025-02-06 02:32] LABS: Glucose, Whole Blood 187 mg/dL (60-115)
[2025-02-06 03:38] LABS: Glucose, Whole Blood 184 mg/dL (60-115)
[2025-02-06] MEDS: Piperacillin Sodium/Tazobactam 2.25 GM in 0.9 % Sodium Chloride 50 ML IV ×4 (04:05→23:31)
[2025-02-06 04:40] LABS: Glucose, Whole Blood 194 mg/dL (60-115)
[2025-02-06 05:41] LABS: Glucose, Whole Blood 170 mg/dL (60-115)
[2025-02-06 05:43] LABS: VBG Base Excess 4.5 mmol/L; VBG HCO3 26 mmol/L (22-26); VBG pCO2 29 mmHg; VBG pH 7.55 (7.32-7.43); VBG pO2 42 mmHg
[2025-02-06] MEDS: Pantoprazole Sodium 40 MG/10 ML VIAL IVPUSH (05:47)
[2025-02-06] MEDS: Levothyroxine Sodium 100 MCG/5 ML VIAL 75 MCG IVPUSH (05:47)
[2025-02-06 06:23] LABS: Venous Blood Gas Refer to POC result
--- NOTE | 2025-02-06 06:25 | PC.NURSE ---
Assumed care at 1900, pt remains intubated. Switched?to [facility] settings?@ 2014 from PSV - see vent assessment.?PPN on hold overnight d/t high blood sugars per [employer] Julius. Continued on?insulin gtt - see MAR for titrations.? 61 - pt placed back on previous PSV settings by RT
[2025-02-06 06:39] LABS: Glucose, Whole Blood 154 mg/dL (60-115)
[2025-02-06 06:43] LABS: Basophils Percent Auto 0.2 % (0-2); Hematocrit 24.5 % (37.0-47.0); Hemoglobin 8.6 g/dl (12.0-16.0); Imm Gran Abs Auto 0.44 X10*3/uL (0.00-0.03); Imm Gran Pct Auto 2.2 % (0.0-0.4); Lymphocytes Absolute Auto 0.6 X10*3/uL (1.2-4.9); Lymphocytes Percent Auto 2.9 % (20-40); MANUAL DIFF FLAG SCAN; Mean Corpuscular HGB Conc 35.1 g/dl (31.0-35.0); Mean Corpuscular Hemoglobin 31.7 pg (27.0-33.0); Mean Corpuscular Volume 90.4 fL (80.0-98.0); Mean Platelet Volume 11.8 fL (9.4-12.3); Monocytes Absolute Auto 0.8 X10*3/uL (0.1-1.2); Monocytes Percent Auto 4.2 % (2-11); Neutrophils Absolute Auto 18.3 x10*3/uL (2.0-8.3); Neutrophils Percent Auto 90.5 % (45-73); Platelet Count 175 X10*3/uL (160-400); Red Blood Count 2.71 X10*6/uL (4.20-5.50); Red Cell Distribution Width 15.6 % (11.0-16.0); SCAN SMEAR FLAG 1; White Blood Count 20.2 X10*3/uL (4.8-10.8)
[2025-02-06 07:02] LABS: Alanine Aminotransferase 152 U/L (0-31); Albumin Level 2.9 g/dL (3.5-5.0); Alkaline Phosphatase 71 U/L (39-117); Anion Gap 18 (12-20); Aspartate Amino Transferase 77 U/L (5-31); Bilirubin Total 0.5 mg/dL (0.0-1.0); Blood Urea Nitrogen 60 mg/dL (9-16); Calcium 8.8 mg/dL (8.4-10.2); Carbon Dioxide 22 mmol/L (22-29); Chloride 100 mmol/L (96-108); Creatinine Clr Calc Pharmacy 11.6; Estimated Glomerular Filt Rate 13; Glucose Random 158 mg/dL (60-115); Magnesium 2.3 mg/dL (1.6-2.6); Phosphorus 4.4 mg/dL (2.7-4.5); Sodium 137 mmol/L (135-145); Total Protein 5.9 g/dL (6.5-8.0)
[2025-02-06 07:08] LABS: Glucose, Whole Blood 151 mg/dL (60-115)
[2025-02-06] MEDS: Potassium Chloride/H20 40 MEQ/100 ML PIGGYBACK 50 MEQ IV ×2 (07:56→09:56)
[2025-02-06] MEDS: Sucralfate Oral Suspension 1 GM/10 ML ORAL.SUSP PO ×3 (07:56→16:20)
[2025-02-06] MEDS: Chlorhexidine Gluc Oral Rinse 15 ML MOUTHWASH BUCCAL ×3 (07:56→21:39)
[2025-02-06 07:57] LABS: SLIDE REVIEW VERIFIED
[2025-02-06] MEDS: 0.9 % Sodium Chloride Flush 3 ML SYRINGE IVFLUSH ×2 (07:57→14:40)
[2025-02-06] MEDS: Isosorbide Dinitrate 20 MG TABLET PO ×3 (08:00→17:04)
[2025-02-06] MEDS: carvediloL 25 MG TABLET PO (08:02)
[2025-02-06] MEDS: hydrALAZINE HCl 50 MG TABLET PO ×4 (08:12→21:39)
[2025-02-06 09:03] LABS: Glucose, Whole Blood 127 mg/dL (60-115)
--- NOTE | 2025-02-06 09:17 | P.PNCC_ITS ---
Subjective Subjective Date of Service: 02/06/25 Interval History: no significant overnight events; persistent hyperglycemia, TPN held Critical Care Time (minutes): 60 Physical Exam 2 Vital Signs: Vital Signs: Last Vital Signs Temp 98.6 F 02/06/25 08:00 Pulse 61 02/06/25 08:02 Resp 20 02/06/25 08:00 BP 114/55 L 02/06/25 08:02 Pulse Ox 99 02/06/25 08:00 O2 Del Method Mechanical Ventil ation 02/06/25 08:00 O2 Flow Rate 21 02/03/25 06:00 FiO2 21 02/06/25 08:00 BMI result Body Mass Index 18.7 Const: Other: intubated, opens eyes to verbal stimulus, attempts to track; no appreciable spontaneous movements in bilateral upper and lower extremities General: no acute distress HEENT: Head: Yes normal to inspection, Yes normocephalic and Yes atraumatic Eyes: General: appearance normal, both eyes and all related structures Neck: Neck: Yes normal visual inspection, Yes full ROM, Yes no meningeal signs, Yes trachea midline and Yes supple Chest: Chest palpation & inspection: normal inspection of the chest Resp: Other: no appreciable overt rales, rhonchi, wheezing Effort & Inspection: normal respiratory effort Cardio: Rate: regular rate Rhythm: regular rhythm GI: Inspection: Yes normal to inspection, No Abdominal wall edema and No distended Palpation (GI): Soft to palpation, not firm, nontender, no guarding and not rigid Skin: General skin exam: no rashes or lesions noted Neuro: General: tone normal and no meningeal signs Extrem: Other: appreciable 1+ pitting edema to bilateral shins General: Yes normal to inspection, Yes full ROM and Yes capillary refill normal Psych: Other: unable to assess Objective Data Labs 02/06/25 06:18 02/06/25 06:18 Labs: Laboratory Results - last 24 hr 02/02/25 02/05/25 02/05/25 07:27 04:45 10:07 WBC RBC Hgb Hct MCV MCH MCHC RDW Plt Count MPV Immature Gran % (Auto) Neut % (Auto) Lymph % (Auto) [place] % (Auto) Eos % (Auto) Baso % (Auto) Lymph # (Auto) [place] # (Auto) Eos # (Auto) Baso # (Auto) Abs Immat Gran (auto) Absolute Neuts (auto) Absolute Nucleated RBC Nucleated RBC % (auto) Smear Tech's Comments VBG pH VBG pCO2 VBG pO2 VBG HCO3 VBG O2 Saturation VBG Base Excess Sodium Potassium Chloride Carbon Dioxide Anion Gap BUN Creatinine Estim Creat Clear Calc Estimated GFR POC Glucose 296 H Random Glucose Calcium Phosphorus Magnesium Total Bilirubin AST ALT Alkaline Phosphatase Total Protein Albumin Triglycerides 458 H Blood Type Antibody Screen Crossmatch See Detail 02/05/25 02/05/25 02/05/25 11:05 11:08 11:10 WBC RBC Hgb Hct MCV MCH MCHC RDW Plt Count MPV Immature Gran % (Auto) Neut % (Auto) Lymph % (Auto) [place] % (Auto) Eos % (Auto) Baso % (Auto) Lymph # (Auto) [place] # (Auto) Eos # (Auto) Baso # (Auto) Abs Immat Gran (auto) Absolute Neuts (auto) Absolute Nucleated RBC Nucleated RBC % (auto) Smear Tech's Comments VBG pH VBG pCO2 VBG pO2 VBG HCO3 VBG O2 Saturation VBG Base Excess Sodium Potassium Chloride Carbon Dioxide Anion Gap BUN Creatinine Estim Creat Clear Calc Estimated GFR POC Glucose 321 H 333 H Random Glucose Calcium Phosphorus Magnesium Total Bilirubin AST ALT Alkaline Phosphatase Total Protein Albumin Triglycerides Blood Type A Positive Antibody Screen NEGATIVE Crossmatch 02/05/25 02/05/25 02/05/25 12:05 13:10 14:01 WBC RBC Hgb Hct MCV MCH MCHC RDW Plt Count MPV Immature Gran % (Auto) Neut % (Auto) Lymph % (Auto) [place] % (Auto) Eos % (Auto) Baso % (Auto) Lymph # (Auto) [place] # (Auto) Eos # (Auto) Baso # (Auto) Abs Immat Gran (auto) Absolute Neuts (auto) Absolute Nucleated RBC Nucleated RBC % (auto) Smear Tech's Comments VBG pH VBG pCO2 VBG pO2 VBG HCO3 VBG O2 Saturation VBG Base Excess Sodium Potassium Chloride Carbon Dioxide Anion Gap BUN Creatinine Estim Creat Clear Calc Estimated GFR POC Glucose 326 H 320 H 299 H Random Glucose Calcium Phosphorus Magnesium Total Bilirubin AST ALT Alkaline Phosphatase Total Protein Albumin Triglycerides Blood Type Antibody Screen Crossmatch 02/05/25 02/05/25 02/05/25 15:06 15:58 16:58 WBC RBC Hgb Hct MCV MCH MCHC RDW Plt Count MPV Immature Gran % (Auto) Neut % (Auto) Lymph % (Auto) [place] % (Auto) Eos % (Auto) Baso % (Auto) Lymph # (Auto) [place] # (Auto) Eos # (Auto) Baso # (Auto) Abs Immat Gran (auto) Absolute Neuts (auto) Absolute Nucleated RBC Nucleated RBC % (auto) Smear Tech's Comments VBG pH VBG pCO2 VBG pO2 VBG HCO3 VBG O2 Saturation VBG Base Excess Sodium Potassium Chloride Carbon Dioxide Anion Gap BUN Creatinine Estim Creat Clear Calc Estimated GFR POC Glucose 232 H 196 H 193 H Random Glucose Calcium Phosphorus Magnesium Total Bilirubin AST ALT Alkaline Phosphatase Total Protein Albumin Triglycerides Blood Type Antibody Screen Crossmatch 02/05/25 02/05/25 02/05/25 18:06 19:02 20:16 WBC RBC Hgb Hct MCV MCH MCHC RDW Plt Count MPV Immature Gran % (Auto) Neut % (Auto) Lymph % (Auto) [place] % (Auto) Eos % (Auto) Baso % (Auto) Lymph # (Auto) [place] # (Auto) Eos # (Auto) Baso # (Auto) Abs Immat Gran (auto) Absolute Neuts (auto) Absolute Nucleated RBC Nucleated RBC % (auto) Smear Tech's Comments VBG pH VBG pCO2 VBG pO2 VBG HCO3 VBG O2 Saturation VBG Base Excess Sodium Potassium Chloride Carbon Dioxide Anion Gap BUN Creatinine Estim Creat Clear Calc Estimated GFR POC Glucose 211 H 217 H 223 H Random Glucose Calcium Phosphorus Magnesium Total Bilirubin AST ALT Alkaline Phosphatase Total Protein Albumin Triglycerides Blood Type Antibody Screen Crossmatch 02/05/25 02/05/25 02/05/25 20:43 21:47 22:31 WBC RBC Hgb Hct MCV MCH MCHC RDW Plt Count MPV Immature Gran % (Auto) Neut % (Auto) Lymph % (Auto) [place] % (Auto) Eos % (Auto) Baso % (Auto) Lymph # (Auto) [place] # (Auto) Eos # (Auto) Baso # (Auto) Abs Immat Gran (auto) Absolute Neuts (auto) Absolute Nucleated RBC Nucleated RBC % (auto) Smear Tech's Comments VBG pH VBG pCO2 VBG pO2 VBG HCO3 VBG O2 Saturation VBG Base Excess Sodium Potassium Chloride Carbon Dioxide Anion Gap BUN Creatinine Estim Creat Clear Calc Estimated GFR POC Glucose 191 H 164 H 144 H Random Glucose Calcium Phosphorus Magnesium Total Bilirubin AST ALT Alkaline Phosphatase Total Protein Albumin Triglycerides Blood Type Antibody Screen Crossmatch 02/05/25 02/06/25 02/06/25 23:43 00:28 01:28 WBC RBC Hgb Hct MCV MCH MCHC RDW Plt Count MPV Immature Gran % (Auto) Neut % (Auto) Lymph % (Auto) [place] % (Auto) Eos % (Auto) Baso % (Auto) Lymph # (Auto) [place] # (Auto) Eos # (Auto) Baso # (Auto) Abs Immat Gran (auto) Absolute Neuts (auto) Absolute Nucleated RBC Nucleated RBC % (auto) Smear Tech's Comments VBG pH VBG pCO2 VBG pO2 VBG HCO3 VBG O2 Saturation VBG Base Excess Sodium Potassium Chloride Carbon Dioxide Anion Gap BUN Creatinine Estim Creat Clear Calc Estimated GFR POC Glucose 133 H 159 H 190 H Random Glucose Calcium Phosphorus Magnesium Total Bilirubin AST ALT Alkaline Phosphatase Total Protein Albumin Triglycerides Blood Type Antibody Screen Crossmatch 02/06/25 02/06/25 02/06/25 02:27 03:34 04:36 WBC RBC Hgb Hct MCV MCH MCHC RDW Plt Count MPV Immature Gran % (Auto) Neut % (Auto) Lymph % (Auto) [place] % (Auto) Eos % (Auto) Baso % (Auto) Lymph # (Auto) [place] # (Auto) Eos # (Auto) Baso # (Auto) Abs Immat Gran (auto) Absolute Neuts (auto) Absolute Nucleated RBC Nucleated RBC % (auto) Smear Tech's Comments VBG pH VBG pCO2 VBG pO2 VBG HCO3 VBG O2 Saturation VBG Base Excess Sodium Potassium Chloride Carbon Dioxide Anion Gap BUN Creatinine Estim Creat Clear Calc Estimated GFR POC Glucose 187 H 184 H 194 H Random Glucose Calcium Phosphorus Magnesium Total Bilirubin AST ALT Alkaline Phosphatase Total Protein Albumin Triglycerides Blood Type Antibody Screen Crossmatch 02/06/25 02/06/25 02/06/25 05:31 05:39 06:18 WBC 20.2 H RBC 2.71 L Hgb 8.6 L Hct 24.5 L MCV 90.4 MCH 31.7 MCHC 35.1 H RDW 15.6 Plt Count 175 MPV 11.8 Immature Gran % (Auto) 2.2 H Neut % (Auto) 90.5 H Lymph % (Auto) 2.9 L [place] % (Auto) 4.2 Eos % (Auto) 0.0 Baso % (Auto) 0.2 Lymph # (Auto) 0.6 L [place] # (Auto) 0.8 Eos # (Auto) 0.0 Baso # (Auto) 0.0 Abs Immat Gran (auto) 0.44 H Absolute Neuts (auto) 18.3 H Absolute Nucleated RBC 0.000 Nucleated RBC % (auto) 0.0 Smear Tech's Comments VERIFIED VBG pH 7.55 H VBG pCO2 29 VBG pO2 42 VBG HCO3 26 VBG O2 Saturation 74.0 VBG Base Excess 4.5 Sodium 137 Potassium 2.6 L* Chloride 100 Carbon Dioxide 22 Anion Gap 18 BUN 60 H Creatinine 3.48 H Estim Creat Clear Calc 11.6 Estimated GFR 13 POC Glucose 170 H Random Glucose 158 H Calcium 8.8 D Phosphorus 4.4 Magnesium 2.3 Total Bilirubin 0.5 AST 77 H ALT 152 H Alkaline Phosphatase 71 Total Protein 5.9 L Albumin 2.9 L Triglycerides Blood Type Antibody Screen Crossmatch 02/06/25 02/06/25 02/06/25 06:35 07:05 09:00 WBC RBC Hgb Hct MCV MCH MCHC RDW Plt Count MPV Immature Gran % (Auto) Neut % (Auto) Lymph % (Auto) [place] % (Auto) Eos % (Auto) Baso % (Auto) Lymph # (Auto) [place] # (Auto) Eos # (Auto) Baso # (Auto) Abs Immat Gran (auto) Absolute Neuts (auto) Absolute Nucleated RBC Nucleated RBC % (auto) Smear Tech's Comments VBG pH VBG pCO2 VBG pO2 VBG HCO3 VBG O2 Saturation VBG Base Excess Sodium Potassium Chloride Carbon Dioxide Anion Gap BUN Creatinine Estim Creat Clear Calc Estimated GFR POC Glucose 154 H 151 H 127 H Random Glucose Calcium Phosphorus Magnesium Total Bilirubin AST ALT Alkaline Phosphatase Total Protein Albumin Triglycerides Blood Type Antibody Screen Crossmatch Microbiology Microbiology Results: Microbiology 01/19/25 07:38 Blood - Venous Blood Culture - Final No growth after 5 days. 01/19/25 07:14 Blood - Venous Blood Culture - Final No growth after 5 days. Progress Note: A&P Assessment and plan (1) Respiratory failure: Status: Acute (2) Myopathy: Status: Acute (3) Pulmonary edema: Status: Acute (4) Heart failure: Status: Acute Plan Patient is a 79 Y F w/ hypertension, hyperlipidemia, diabetes mellitus, c/b CAD, prior CVA c/b R hemiparesis, hypothyroidism, and LUANA presenting from nursing facility to emergency department on 01/19 w/ obtundation, found to be hypoxic; in emergency department, patient intubated 01/19, found to have CT C c/f pulmonary edema and/or pneumonia, extubated 01/22, though c/b persistent respiratory failure d/t weakness, re-intubated 01/29; ICU course c/b renal failure, initiated on hemodialysis 01/27 and hyperglycemia N: persistent encephalopathy, likely toxic-metabolic, despite off sedating gtts CV: HFrEF; hypertension; atrial fibrillation previously on apixaban, though held in setting of upper GI bleed R: persistent respiratory failure, intuabted 01/19, extubated 01/22, re- intubated 01/29, wean as tolerated GI: upper GI bleed d/t duodenal ulcer s/p clipping, embolization, PPI; PPN though held d/t hyperglycemia : acute renal failure, initiated on hemodialysis 01/27, last session 02/05; to appreciate nephrology recommendations; to closely monitor electrolytes H: acute blood loss anemia d/t upper GI bleed; transfusions as needed; DVT prophylaxis w/ mechanical devices ID: empiric [id number] in setting of fever E: hyperglycemia, on insulin gtt P: no acute issues S: ongoing goals of care discussions w/ daughters Quality Stroke Does the patient have a stroke diagnosis?: No VTE Prior VTE?: No VTE Risk Level:: Medical - moderate - high VTE Device Contraindication: N/A - Device Ordered VTE Drug Contraindication: Treatment Not Tolerated
[2025-02-06] MEDS: Albumin Human 25 % 50 ML 100 ML IV (09:47)
[2025-02-06] MEDS: cloNIDine 0.3 MG PATCH.TDWK TRANSDERMA (09:48)
[2025-02-06 10:25] LABS: Potassium 2.6 mmol/L (3.3-5.1)
[2025-02-06 11:03] LABS: Glucose, Whole Blood 90 mg/dL (60-115)
[2025-02-06 13:01] LABS: Glucose, Whole Blood 161 mg/dL (60-115)
[2025-02-06] MEDS: Insulin Regular/NS 100 UNIT/100 ML PLAST..BAG 9 UNIT IVCONT (13:37)
--- NOTE | 2025-02-06 14:58 | MHC.CM.PN ---
Pt continues on Vent and HD: not making clinical gains towards extubation. MD to speak with family about goals of care. Pt has been referred to SNF. CM to follow
[2025-02-06 15:06] LABS: Glucose, Whole Blood 164 mg/dL (60-115)
[2025-02-06 17:04] LABS: Glucose, Whole Blood 130 mg/dL (60-115)
[2025-02-06 19:16] LABS: Glucose, Whole Blood 99 mg/dL (60-115)
--- NOTE | 2025-02-06 23:58 | PC.NURSE ---
Pt brought for head CT at approx 2100 without incident. Provider aware of results.
[2025-02-07] VITALS (34 sets, daily range): BP systolic 139–172; BP diastolic 48–68; PULSE 52–89; RESP 12–26; TEMP 35–37.2; O2SAT 93–100; BMI 18.7
[2025-02-07] MEDS: 0.9 % Sodium Chloride Flush 3 ML SYRINGE IVFLUSH ×2 (00:19→09:39)
[2025-02-07] MEDS: Insulin Lispro 100 UNIT/ML 3 ML VIAL SUBCUT ×4 (00:20→17:07)
[2025-02-07 00:25] LABS: Glucose, Whole Blood 173 mg/dL (60-115)
[2025-02-07] MEDS: Albuterol/Iprat 2.5/0.5MG 3 ML AMPUL.NEB INHALE ×3 (01:06→11:00)
[2025-02-07 01:23] LABS: Glucose, Whole Blood 163 mg/dL (60-115)
[2025-02-07] MEDS: Piperacillin Sodium/Tazobactam 2.25 GM in 0.9 % Sodium Chloride 50 ML IV ×4 (04:26→22:30)
[2025-02-07] MEDS: Levothyroxine Sodium 100 MCG/5 ML VIAL 75 MCG IVPUSH (04:58)
[2025-02-07] MEDS: Pantoprazole Sodium 40 MG/10 ML VIAL IVPUSH (04:58)
[2025-02-07 05:40] LABS: VBG Base Excess -0.7 mmol/L; VBG HCO3 22 mmol/L (22-26); VBG pCO2 29 mmHg; VBG pH 7.48 (7.32-7.43); VBG pO2 47 mmHg
[2025-02-07 05:54] LABS: MANUAL DIFF FLAG NO
[2025-02-07 05:55] LABS: Venous Blood Gas Refer to POC result
[2025-02-07 05:55] LABS: Basophils Percent Auto 0.2 % (0-2); Eosinophils Absolute Auto 0.1 X10*3/uL (0.0-0.4); Eosinophils Percent Auto 0.6 % (0-4); Hematocrit 25.5 % (37.0-47.0); Hemoglobin 8.6 g/dl (12.0-16.0); Imm Gran Abs Auto 0.32 X10*3/uL (0.00-0.03); Imm Gran Pct Auto 1.9 % (0.0-0.4); Lymphocytes Absolute Auto 0.7 X10*3/uL (1.2-4.9); Lymphocytes Percent Auto 4.2 % (20-40); Mean Corpuscular HGB Conc 33.7 g/dl (31.0-35.0); Mean Corpuscular Hemoglobin 30.9 pg (27.0-33.0); Mean Corpuscular Volume 91.7 fL (80.0-98.0); Mean Platelet Volume 11.1 fL (9.4-12.3); Monocytes Percent Auto 5.7 % (2-11); Neutrophils Absolute Auto 15.1 x10*3/uL (2.0-8.3); Neutrophils Percent Auto 87.4 % (45-73); Platelet Count 203 X10*3/uL (160-400); Red Blood Count 2.78 X10*6/uL (4.20-5.50); Red Cell Distribution Width 15.9 % (11.0-16.0); White Blood Count 17.3 X10*3/uL (4.8-10.8)
[2025-02-07 06:14] LABS: Glucose, Whole Blood 182 mg/dL (60-115)
[2025-02-07 06:25] LABS: Alanine Aminotransferase 165 U/L (0-31); Alkaline Phosphatase 86 U/L (39-117); Anion Gap 21 (12-20); Aspartate Amino Transferase 81 U/L (5-31); Bilirubin Total 0.6 mg/dL (0.0-1.0); Blood Urea Nitrogen 79 mg/dL (9-16); Calcium 8.6 mg/dL (8.4-10.2); Carbon Dioxide 19 mmol/L (22-29); Chloride 101 mmol/L (96-108); Estimated Glomerular Filt Rate 10; Glucose Random 192 mg/dL (60-115); Magnesium 2.4 mg/dL (1.6-2.6); Phosphorus 6.3 mg/dL (2.7-4.5); Potassium 3.5 mmol/L (3.3-5.1); Sodium 137 mmol/L (135-145); Total Protein 6.1 g/dL (6.5-8.0)
--- NOTE | 2025-02-07 08:38 | P.PNCC_ITS ---
Subjective Subjective Date of Service: 02/07/25 Interval History: CT H performed 02/07 PM to continue work-up for generalized weakness demonstrating small lacunar infarct w/ unclear clinical significance Critical Care Time (minutes): 60 Physical Exam 2 Vital Signs: Vital Signs: Last Vital Signs Temp 98.8 F 02/07/25 08:00 Pulse 58 02/07/25 08:00 Resp 18 02/07/25 08:00 BP 155/50 H 02/07/25 08:00 Pulse Ox 99 02/07/25 08:00 O2 Del Method Mechanical Ventil ation 02/07/25 08:00 O2 Flow Rate 21 02/03/25 06:00 FiO2 21 02/07/25 08:00 BMI result Body Mass Index 18.7 Const: Other: intubated, not sedated; opens eyes spontaneously; intermittently tracks; no appreciable purposeful movements General: comfortable and no acute distress HEENT: Head: Yes normal to inspection, Yes normocephalic and Yes atraumatic Eyes: General: appearance normal, both eyes and all related structures Neck: Neck: Yes normal visual inspection, Yes full ROM, Yes no meningeal signs, Yes trachea midline and Yes supple Chest: Chest palpation & inspection: normal inspection of the chest Resp: Effort & Inspection: normal respiratory effort Cardio: Rate: regular rate Rhythm: regular rhythm GI: Inspection: Yes normal to inspection, No Abdominal wall edema and No distended Palpation (GI): Soft to palpation, not firm, nontender, no guarding and not rigid Skin: General skin exam: no rashes or lesions noted Neuro: General: no meningeal signs Extrem: Other: appreciable 1+ pitting edema to bilateral shins General: Yes normal to inspection, Yes full ROM and Yes capillary refill normal Psych: Other: unable to assess Objective Data Labs 02/07/25 05:30 02/07/25 05:30 Labs: Laboratory Results - last 24 hr 02/06/25 02/06/25 02/06/25 06:18 09:00 11:00 WBC RBC Hgb Hct MCV MCH MCHC RDW Plt Count MPV Immature Gran % (Auto) Neut % (Auto) Lymph % (Auto) [place] % (Auto) Eos % (Auto) Baso % (Auto) Lymph # (Auto) [place] # (Auto) Eos # (Auto) Baso # (Auto) Abs Immat Gran (auto) Absolute Neuts (auto) Absolute Nucleated RBC Nucleated RBC % (auto) VBG pH VBG pCO2 VBG pO2 VBG HCO3 VBG O2 Saturation VBG Base Excess Sodium Potassium 2.6 L* Chloride Carbon Dioxide Anion Gap BUN Creatinine Estim Creat Clear Calc Estimated GFR POC Glucose 127 H 90 Random Glucose Calcium Phosphorus Magnesium Total Bilirubin AST ALT Alkaline Phosphatase Total Protein Albumin 02/06/25 02/06/25 02/06/25 12:59 15:02 17:01 WBC RBC Hgb Hct MCV MCH MCHC RDW Plt Count MPV Immature Gran % (Auto) Neut % (Auto) Lymph % (Auto) [place] % (Auto) Eos % (Auto) Baso % (Auto) Lymph # (Auto) [place] # (Auto) Eos # (Auto) Baso # (Auto) Abs Immat Gran (auto) Absolute Neuts (auto) Absolute Nucleated RBC Nucleated RBC % (auto) VBG pH VBG pCO2 VBG pO2 VBG HCO3 VBG O2 Saturation VBG Base Excess Sodium Potassium Chloride Carbon Dioxide Anion Gap BUN Creatinine Estim Creat Clear Calc Estimated GFR POC Glucose 161 H 164 H 130 H Random Glucose Calcium Phosphorus Magnesium Total Bilirubin AST ALT Alkaline Phosphatase Total Protein Albumin 02/06/25 02/07/25 02/07/25 19:13 00:09 01:20 WBC RBC Hgb Hct MCV MCH MCHC RDW Plt Count MPV Immature Gran % (Auto) Neut % (Auto) Lymph % (Auto) [place] % (Auto) Eos % (Auto) Baso % (Auto) Lymph # (Auto) [place] # (Auto) Eos # (Auto) Baso # (Auto) Abs Immat Gran (auto) Absolute Neuts (auto) Absolute Nucleated RBC Nucleated RBC % (auto) VBG pH VBG pCO2 VBG pO2 VBG HCO3 VBG O2 Saturation VBG Base Excess Sodium Potassium Chloride Carbon Dioxide Anion Gap BUN Creatinine Estim Creat Clear Calc Estimated GFR POC Glucose 99 173 H 163 H Random Glucose Calcium Phosphorus Magnesium Total Bilirubin AST ALT Alkaline Phosphatase Total Protein Albumin 02/07/25 02/07/25 02/07/25 05:30 05:36 05:59 WBC 17.3 H RBC 2.78 L Hgb 8.6 L Hct 25.5 L MCV 91.7 MCH 30.9 MCHC 33.7 RDW 15.9 Plt Count 203 MPV 11.1 Immature Gran % (Auto) 1.9 H Neut % (Auto) 87.4 H Lymph % (Auto) 4.2 L [place] % (Auto) 5.7 Eos % (Auto) 0.6 Baso % (Auto) 0.2 Lymph # (Auto) 0.7 L [place] # (Auto) 1.0 Eos # (Auto) 0.1 Baso # (Auto) 0.0 Abs Immat Gran (auto) 0.32 H Absolute Neuts (auto) 15.1 H Absolute Nucleated RBC 0.000 Nucleated RBC % (auto) 0.0 VBG pH 7.48 H VBG pCO2 29 VBG pO2 47 VBG HCO3 22 VBG O2 Saturation 79.0 VBG Base Excess -0.7 Sodium 137 Potassium 3.5 D Chloride 101 Carbon Dioxide 19 L Anion Gap 21 H BUN 79 H Creatinine 4.43 H* Estim Creat Clear Calc 9.0 Estimated GFR 10 POC Glucose 182 H Random Glucose 192 H Calcium 8.6 Phosphorus 6.3 H Magnesium 2.4 Total Bilirubin 0.6 AST 81 H ALT 165 H Alkaline Phosphatase 86 Total Protein 6.1 L Albumin 3.0 L Microbiology Microbiology Results: Microbiology 01/19/25 07:38 Blood - Venous Blood Culture - Final No growth after 5 days. 01/19/25 07:14 Blood - Venous Blood Culture - Final No growth after 5 days. Progress Note: A&P Assessment and plan (1) Acute hypoxic respiratory failure: Status: Acute (2) Pulmonary edema: Status: Acute (3) Renal failure: Status: Acute Plan Patient is a 79 Y F w/ hypertension, hyperlipidemia, diabetes mellitus, c/b CAD, prior CVA c/b R hemiparesis, hypothyroidism, and LUANA presenting from nursing facility to emergency department on 01/19 w/ obtundation, found to be hypoxic; in emergency department, patient intubated 01/19, found to have CT C c/f pulmonary edema and/or pneumonia, extubated 01/22, though c/b persistent respiratory failure d/t weakness, re-intubated 01/29; ICU course c/b renal failure, initiated on hemodialysis 01/27 and hyperglycemia N: persistent encephalopathy, likely toxic-metabolic, despite off sedating gtts; CT H 02/06 demonstrating lacunar infarct CV: HFrEF; hypertension; atrial fibrillation previously on apixaban, though held in setting of upper GI bleed R: persistent respiratory failure, intubated 01/19, extubated 01/22, re- intubated 01/29, wean as tolerated GI: upper GI bleed d/t duodenal ulcer s/p clipping, embolization, PPI; PPN though held d/t hyperglycemia : acute renal failure, initiated on hemodialysis 01/27, last session 02/05; to appreciate nephrology recommendations; to closely monitor electrolytes H: acute blood loss anemia d/t upper GI bleed; transfusions as needed; DVT prophylaxis w/ mechanical devices ID: empiric zosyn in setting of fever E: hyperglycemia, insulin sliding scale P: no acute issues S: ongoing goals of care discussions w/ daughters Quality Stroke Does the patient have a stroke diagnosis?: Yes Reason for No Anti-thrombotic by Day Two: N/A - Med Ordered VTE Prior VTE?: No VTE Risk Level:: Medical - moderate - high VTE Device Contraindication: N/A - Device Ordered VTE Drug Contraindication: Treatment Not Tolerated
[2025-02-07] MEDS: Isosorbide Dinitrate 20 MG TABLET PO ×3 (09:38→17:06)
[2025-02-07] MEDS: hydrALAZINE HCl 50 MG TABLET PO ×4 (09:38→20:48)
[2025-02-07] MEDS: Albumin Human 25 % 50 ML 100 ML IV (09:39)
[2025-02-07] MEDS: Chlorhexidine Gluc Oral Rinse 15 ML MOUTHWASH BUCCAL ×3 (09:39→20:48)
--- NOTE | 2025-02-07 10:09 | MHC.CLN ---
F/U DISCUSSED AT ROUNDS WITH MD REVIEWED LABS GLUCERNA CURRENTLY AT 40ML/HR AND TOLERATING WELL PER NSG-GOAL IS SLOWLY TITRATE TO GOAL RATE RECOMMEND GLUCERNA AT MAX GOAL RATE 70ML/HR TO PROVIDE 1680KCALS (29KCALS/KG BASED ON IBW), 70G PROTEIN (1.2G/KG), 1433ML FREE WATER FROM FORMULA MONITOR RG, LYTES AND TOLERANCE
[2025-02-07 12:13] LABS: Glucose, Whole Blood 220 mg/dL (60-115)
--- NOTE | 2025-02-07 12:14 | P.ACPN_ITS ---
Advanced Care Planning Note Advanced Care Planning Note Discussed with: family member(s) Time spent (in minutes): 30 Narrative: I met w/ Ms. Wright's daughter and healthcare proxy, and son-in-law at her bedside this AM; I offered updates and clarifications; we discussed that Ms. 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 Wright's daughter expressed that they have discussed her goals of care last week, and that when it is appropriate, family believes, given Ms. Wright's values, that it would be appropriate to extubate Ms. Wright, without the pos sibility of re-intubation and tracheostomy; we discussed that there unfortunately not many interventions that can immediately/meaningfully improve global weakness; given such, the timing of extubation may rely moreso on readiness of family; Ms. Wright's daughter and son-in-law expressed understanding of this; we planned to discuss with additional family members tomorrow Problems Discussed (1) Acute hypoxic respiratory failure: (2) Pulmonary edema: (3) Renal failure:
--- NOTE | 2025-02-07 13:49 | MHC.CM.PN ---
Pt remains on ventilator and HD support: spoke with family about goals of care: family feels [employer] would be appropriate but would like to discuss w/all family members before making the transition. CM to follow
[2025-02-07] MEDS: gadobutroL 7.5 ML VIAL IVPUSH (15:29)
[2025-02-07 17:04] LABS: Glucose, Whole Blood 163 mg/dL (60-115)
--- NOTE | 2025-02-07 18:39 | P.PNNP_ITS ---
Subjective Subjective Date of Service: 02/07/25 Interval history: CT H performed 02/07 PM to continue work-up for generalized weakness demonstrating small lacunar infarct w/ unclear clinical significance; All recent data reviewed. D/W ICU Attending Physical Exam 2 Vital Signs: Vital Signs: Last Vital Signs Temp 97.7 F 02/07/25 17:53 Pulse 89 02/07/25 17:53 Resp 13 02/07/25 17:53 BP 140/55 H 02/07/25 17:53 Pulse Ox 97 02/07/25 17:53 O2 Del Method Mechanical Ventil ation 02/07/25 17:53 O2 Flow Rate 21 02/03/25 06:00 FiO2 21 02/07/25 17:53 BMI result Body Mass Index 18.7 Const: General: no acute distress Resp: Auscultation: diminished lung sounds Cardio: Rate: regular rate GI: Palpation (GI): Soft to palpation Neuro: Other: Intubated and sedated Objective Data Labs 02/07/25 05:30 02/07/25 05:30 Labs: Laboratory Results - last 24 hr 02/06/25 02/07/25 02/07/25 19:13 00:09 01:20 WBC RBC Hgb Hct MCV MCH MCHC RDW Plt Count MPV Immature Gran % (Auto) Neut % (Auto) Lymph % (Auto) [place] % (Auto) Eos % (Auto) Baso % (Auto) Lymph # (Auto) [place] # (Auto) Eos # (Auto) Baso # (Auto) Abs Immat Gran (auto) Absolute Neuts (auto) Absolute Nucleated RBC Nucleated RBC % (auto) VBG pH VBG pCO2 VBG pO2 VBG HCO3 VBG O2 Saturation VBG Base Excess Sodium Potassium Chloride Carbon Dioxide Anion Gap BUN Creatinine Estim Creat Clear Calc Estimated GFR POC Glucose 99 173 H 163 H Random Glucose Calcium Phosphorus Magnesium Total Bilirubin AST ALT Alkaline Phosphatase Total Protein Albumin 02/07/25 02/07/25 02/07/25 05:30 05:36 05:59 WBC 17.3 H RBC 2.78 L Hgb 8.6 L Hct 25.5 L MCV 91.7 MCH 30.9 MCHC 33.7 RDW 15.9 Plt Count 203 MPV 11.1 Immature Gran % (Auto) 1.9 H Neut % (Auto) 87.4 H Lymph % (Auto) 4.2 L [place] % (Auto) 5.7 Eos % (Auto) 0.6 Baso % (Auto) 0.2 Lymph # (Auto) 0.7 L [place] # (Auto) 1.0 Eos # (Auto) 0.1 Baso # (Auto) 0.0 Abs Immat Gran (auto) 0.32 H Absolute Neuts (auto) 15.1 H Absolute Nucleated RBC 0.000 Nucleated RBC % (auto) 0.0 VBG pH 7.48 H VBG pCO2 29 VBG pO2 47 VBG HCO3 22 VBG O2 Saturation 79.0 VBG Base Excess -0.7 Sodium 137 Potassium 3.5 D Chloride 101 Carbon Dioxide 19 L Anion Gap 21 H BUN 79 H Creatinine 4.43 H* Estim Creat Clear Calc 9.0 Estimated GFR 10 POC Glucose 182 H Random Glucose 192 H Calcium 8.6 Phosphorus 6.3 H Magnesium 2.4 Total Bilirubin 0.6 AST 81 H ALT 165 H Alkaline Phosphatase 86 Total Protein 6.1 L Albumin 3.0 L 02/07/25 02/07/25 12:05 17:01 WBC RBC Hgb Hct MCV MCH MCHC RDW Plt Count MPV Immature Gran % (Auto) Neut % (Auto) Lymph % (Auto) [place] % (Auto) Eos % (Auto) Baso % (Auto) Lymph # (Auto) [place] # (Auto) Eos # (Auto) Baso # (Auto) Abs Immat Gran (auto) Absolute Neuts (auto) Absolute Nucleated RBC Nucleated RBC % (auto) VBG pH VBG pCO2 VBG pO2 VBG HCO3 VBG O2 Saturation VBG Base Excess Sodium Potassium Chloride Carbon Dioxide Anion Gap BUN Creatinine Estim Creat Clear Calc Estimated GFR POC Glucose 220 H 163 H Random Glucose Calcium Phosphorus Magnesium Total Bilirubin AST ALT Alkaline Phosphatase Total Protein Albumin Microbiology Microbiology Results: Microbiology 01/19/25 07:38 Blood - Venous Blood Culture - Final No growth after 5 days. 01/19/25 07:14 Blood - Venous Blood Culture - Final No growth after 5 days. 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 HD today ; Continue rest of current medication regimen ; Labs AM; Shall F/U closely Progress Note: Quality Stroke Does the patient have a stroke diagnosis?: Yes Reason for No Anti-thrombotic by Day Two: N/A - Med Ordered
--- NOTE | 2025-02-07 19:36 | PC.NURSE ---
Addendum entered by Zane Gregory RN 02/09/25 19:38: 02/07/25, due to surgical clips in abdomen, KUB obtained before and after MRI to confirm surgical clips have not migrated. MD aware of results. Original Note: LATE ENTRY 02/07/25 patient brought to MRI on 02/07/25, MD aware of results. ongoing talks with family, RN, Case Management and MD about plan for pt. prior to
[2025-02-07] MEDS: carvediloL 25 MG TABLET PO (20:48)
[2025-02-07 23:37] LABS: Glucose, Whole Blood 218 mg/dL (60-115)
[2025-02-08] VITALS (38 sets, daily range): BP systolic 128–180; BP diastolic 39–66; PULSE 57–99; RESP 10–17; TEMP 34.9–38; O2SAT 95–99; BMI 16.8
[2025-02-08] MEDS: Insulin Lispro 100 UNIT/ML 3 ML VIAL SUBCUT ×4 (00:01→17:10)
[2025-02-08] MEDS: 0.9 % Sodium Chloride Flush 3 ML SYRINGE IVFLUSH ×4 (00:01→23:20)
[2025-02-08] MEDS: Albuterol/Iprat 2.5/0.5MG 3 ML AMPUL.NEB INHALE ×3 (00:58→11:25)
[2025-02-08] MEDS: Piperacillin Sodium/Tazobactam 2.25 GM in 0.9 % Sodium Chloride 50 ML IV ×4 (04:32→23:20)
[2025-02-08] MEDS: Levothyroxine Sodium 100 MCG/5 ML VIAL 75 MCG IVPUSH (05:17)
[2025-02-08] MEDS: Pantoprazole Sodium 40 MG/10 ML VIAL IVPUSH (05:17)
[2025-02-08 05:41] LABS: VBG Base Excess 5.5 mmol/L; VBG HCO3 26 mmol/L (22-26); VBG pCO2 28 mmHg; VBG pH 7.58 (7.32-7.43); VBG pO2 39 mmHg
[2025-02-08 05:43] LABS: MANUAL DIFF FLAG NO
[2025-02-08 05:48] LABS: Basophils Percent Auto 0.2 % (0-2); Eosinophils Absolute Auto 0.2 X10*3/uL (0.0-0.4); Eosinophils Percent Auto 1.4 % (0-4); Hematocrit 25.3 % (37.0-47.0); Hemoglobin 8.5 g/dl (12.0-16.0); Imm Gran Abs Auto 0.11 X10*3/uL (0.00-0.03); Imm Gran Pct Auto 0.9 % (0.0-0.4); Lymphocytes Absolute Auto 0.5 X10*3/uL (1.2-4.9); Lymphocytes Percent Auto 4.2 % (20-40); Mean Corpuscular HGB Conc 33.6 g/dl (31.0-35.0); Mean Corpuscular Hemoglobin 30.7 pg (27.0-33.0); Mean Corpuscular Volume 91.3 fL (80.0-98.0); Mean Platelet Volume 10.4 fL (9.4-12.3); Monocytes Absolute Auto 0.8 X10*3/uL (0.1-1.2); Monocytes Percent Auto 6.2 % (2-11); Neutrophils Percent Auto 87.1 % (45-73); Platelet Count 218 X10*3/uL (160-400); Red Blood Count 2.77 X10*6/uL (4.20-5.50); Red Cell Distribution Width 15.4 % (11.0-16.0); White Blood Count 12.6 X10*3/uL (4.8-10.8)
[2025-02-08 05:49] LABS: Venous Blood Gas Refer to POC result
[2025-02-08 06:06] LABS: Alanine Aminotransferase 136 U/L (0-31); Anion Gap 16 (12-20); Aspartate Amino Transferase 51 U/L (5-31); Bilirubin Total 0.7 mg/dL (0.0-1.0); Blood Urea Nitrogen 54 mg/dL (9-16); Calcium 8.5 mg/dL (8.4-10.2); Carbon Dioxide 22 mmol/L (22-29); Chloride 104 mmol/L (96-108); Creatinine Clr Calc Pharmacy 11.6; Estimated Glomerular Filt Rate 15; Glucose Random 211 mg/dL (60-115); Magnesium 2.1 mg/dL (1.6-2.6); Phosphorus 4.8 mg/dL (2.7-4.5); Potassium 3.3 mmol/L (3.3-5.1); Sodium 139 mmol/L (135-145); Total Protein 6.1 g/dL (6.5-8.0)
[2025-02-08 06:15] LABS: Alkaline Phosphatase 97 U/L (39-117)
[2025-02-08] MEDS: Potassium Chloride Packet 20 MEQ PACKET 40 MEQ PO (06:45)
[2025-02-08] MEDS: Chlorhexidine Gluc Oral Rinse 15 ML MOUTHWASH BUCCAL ×3 (08:11→20:29)
[2025-02-08] MEDS: hydrALAZINE HCl 50 MG TABLET PO ×4 (08:11→20:29)
[2025-02-08] MEDS: carvediloL 25 MG TABLET PO (08:11)
[2025-02-08] MEDS: Isosorbide Dinitrate 20 MG TABLET PO ×3 (08:11→17:10)
--- NOTE | 2025-02-08 09:25 | PM.CCPN ---
Subjective Subjective Date of Service: 02/08/25 Interval History: no significant overnight events Critical Care Time (minutes): 60 Physical Exam Vital Signs: Vital Signs: Last Vital Signs Temp 99.7 F 02/08/25 09:00 Pulse 65 02/08/25 09:00 Resp 12 02/08/25 09:00 BP 174/54 H 02/08/25 09:00 Pulse Ox 98 02/08/25 09:00 O2 Del Method Mechanical Ventil ation 02/08/25 09:00 O2 Flow Rate 21 02/03/25 06:00 FiO2 21 02/08/25 09:00 BMI result Body Mass Index 16.8 Const: Other: no appreciable spontaneous movements; no appreciable response to verbal nor noxious stimulus General: well developed; No no acute distress HEENT: Head: Yes normal to inspection, Yes normocephalic and Yes atraumatic Eyes: General: appearance normal, both eyes and all related structures Neck: Neck: Yes normal visual inspection, Yes full ROM, Yes no meningeal signs, Yes trachea midline and Yes supple Chest: Chest palpation & inspection: normal inspection of the chest Resp: Other: no appreciable overt rales, rhonchi, wheezing Effort & Inspection: normal respiratory effort Cardio: Rate: regular rate Rhythm: regular rhythm GI: Inspection: Yes normal to inspection, No Abdominal wall edema and No distended Skin: General skin exam: no rashes or lesions noted Neuro: General: tone normal and no meningeal signs Extrem: Other: appreciable 1+ pitting edema bilateral hands; trace pitting edema to bilateral shins General: Yes normal to inspection, Yes full ROM and Yes capillary refill normal Psych: Other: unable to assess Objective Data Labs 02/08/25 05:26 02/08/25 05:26 Labs: Laboratory Results - last 24 hr 02/07/25 02/07/25 02/07/25 12:05 17:01 23:26 WBC RBC Hgb Hct MCV MCH MCHC RDW Plt Count MPV Immature Gran % (Auto) Neut % (Auto) Lymph % (Auto) [place] % (Auto) Eos % (Auto) Baso % (Auto) Lymph # (Auto) [place] # (Auto) Eos # (Auto) Baso # (Auto) Abs Immat Gran (auto) Absolute Neuts (auto) Absolute Nucleated RBC Nucleated RBC % (auto) VBG pH VBG pCO2 VBG pO2 VBG HCO3 VBG O2 Saturation VBG Base Excess Sodium Potassium Chloride Carbon Dioxide Anion Gap BUN Creatinine Estim Creat Clear Calc Estimated GFR POC Glucose 220 H 163 H 218 H Random Glucose Calcium Phosphorus Magnesium Total Bilirubin AST ALT Alkaline Phosphatase Total Protein Albumin 02/08/25 02/08/25 05:26 05:36 WBC 12.6 H RBC 2.77 L Hgb 8.5 L Hct 25.3 L MCV 91.3 MCH 30.7 MCHC 33.6 RDW 15.4 Plt Count 218 MPV 10.4 Immature Gran % (Auto) 0.9 H Neut % (Auto) 87.1 H Lymph % (Auto) 4.2 L [place] % (Auto) 6.2 Eos % (Auto) 1.4 Baso % (Auto) 0.2 Lymph # (Auto) 0.5 L [place] # (Auto) 0.8 Eos # (Auto) 0.2 Baso # (Auto) 0.0 Abs Immat Gran (auto) 0.11 H Absolute Neuts (auto) 11.0 H Absolute Nucleated RBC 0.000 Nucleated RBC % (auto) 0.0 VBG pH 7.58 H VBG pCO2 28 VBG pO2 39 VBG HCO3 26 VBG O2 Saturation 72.0 VBG Base Excess 5.5 Sodium 139 Potassium 3.3 Chloride 104 Carbon Dioxide 22 Anion Gap 16 BUN 54 H Creatinine 3.08 H Estim Creat Clear Calc 11.6 Estimated GFR 15 POC Glucose Random Glucose 211 H Calcium 8.5 Phosphorus 4.8 H Magnesium 2.1 Total Bilirubin 0.7 AST 51 H ALT 136 H Alkaline Phosphatase 97 Total Protein 6.1 L Albumin 3.0 L Microbiology Microbiology Results: Microbiology 01/19/25 07:38 Blood - Venous Blood Culture - Final No growth after 5 days. 01/19/25 07:14 Blood - Venous Blood Culture - Final No growth after 5 days. Progress Note: A&P Assessment and plan (1) Respiratory failure: Status: Acute (2) Pulmonary edema: Status: Acute (3) Heart failure: Status: Acute (4) Renal failure: Status: Acute (5) Myopathy: Status: Acute Plan Patient is a 79 Y F w/ hypertension, hyperlipidemia, diabetes mellitus, c/b CAD, prior CVA c/b R hemiparesis, hypothyroidism, and LUANA presenting from nursing facility to emergency department on 01/19 w/ obtundation, found to be hypoxic; in emergency department, patient intubated 01/19, found to have CT C c/f pulmonary edema and/or pneumonia, extubated 01/22, though c/b persistent respiratory failure d/t weakness, re-intubated 01/29; ICU course c/b renal failure, initiated on hemodialysis 01/27 and hyperglycemia N: persistent encephalopathy, likely toxic-metabolic, despite off sedating gtts; CT H 02/06 demonstrating lacunar infarct; MRI 02/07 re-demonstrating lacunar infarct and posterior parietal infarct CV: HFrEF; hypertension; atrial fibrillation previously on apixaban, though held in setting of upper GI bleed R: persistent respiratory failure, intubated 01/19, extubated 01/22, re-intubated 01/29, wean as tolerated GI: upper GI bleed d/t duodenal ulcer s/p clipping, embolization, resolved; tube feeds; PPI : acute renal failure, initiated on hemodialysis 01/27, last session 02/07; to appreciate nephrology recommendations; to closely monitor electrolytes H: acute blood loss anemia d/t upper GI bleed, resolved; DVT prophylaxis w/ mechanical devices ID: empiric zosyn in setting of fever E: hyperglycemia, insulin sliding scale MSK: critical illness myopathy P: no acute issues S: ongoing goals of care discussions w/ daughters Quality Stroke Does the patient have a stroke diagnosis?: Yes Reason for No Anti-thrombotic by Day Two: N/A - Med Ordered VTE Prior VTE?: No VTE Risk Level:: Medical - moderate - high VTE Device Contraindication: N/A - Device Ordered VTE Drug Contraindication: Treatment Not Tolerated
[2025-02-08] MEDS: cloNIDine HCL 0.1 MG TABLET PO ×2 (09:43→20:30)
[2025-02-08] MEDS: Labetalol HCL 100 MG TABLET PO (09:43)
[2025-02-08 11:21] LABS: Glucose, Whole Blood 227 mg/dL (60-115)
--- NOTE | 2025-02-08 12:35 | MHC.CM.PN ---
Pt vented: MRI from 02/07 notes acute CVA. discussed prognosis with pt's dtrs: no change in status at this time. CM to follow for finalization of d/c needs.
[2025-02-08 17:17] LABS: Glucose, Whole Blood 263 mg/dL (60-115)
[2025-02-08] MEDS: Atorvastatin Calcium 80 MG TABLET PO (20:29)
[2025-02-08 23:46] LABS: Glucose, Whole Blood 220 mg/dL (60-115)
[2025-02-09] VITALS (38 sets, daily range): BP systolic 105–185; BP diastolic 43–82; PULSE 57–97; RESP 12–25; TEMP 34.9–38; O2SAT 95–99; BMI 17.3
[2025-02-09] MEDS: Albuterol/Iprat 2.5/0.5MG 3 ML AMPUL.NEB INHALE ×5 (00:11→23:29)
[2025-02-09] MEDS: Insulin Lispro 100 UNIT/ML 3 ML VIAL SUBCUT ×4 (00:22→17:57)
[2025-02-09] MEDS: Piperacillin Sodium/Tazobactam 2.25 GM in 0.9 % Sodium Chloride 50 ML IV ×4 (04:55→22:20)
[2025-02-09 05:00] LABS: MANUAL DIFF FLAG NO
[2025-02-09 05:02] LABS: VBG Base Excess 1.8 mmol/L; VBG HCO3 22 mmol/L (22-26); VBG pCO2 22 mmHg; VBG pH 7.61 (7.32-7.43); VBG pO2 40 mmHg
[2025-02-09 05:02] LABS: Basophils Percent Auto 0.2 % (0-2); Eosinophils Absolute Auto 0.2 X10*3/uL (0.0-0.4); Eosinophils Percent Auto 1.9 % (0-4); Hematocrit 23.8 % (37.0-47.0); Hemoglobin 7.9 g/dl (12.0-16.0); Imm Gran Abs Auto 0.08 X10*3/uL (0.00-0.03); Imm Gran Pct Auto 0.8 % (0.0-0.4); Lymphocytes Absolute Auto 0.5 X10*3/uL (1.2-4.9); Mean Corpuscular HGB Conc 33.2 g/dl (31.0-35.0); Mean Corpuscular Hemoglobin 30.9 pg (27.0-33.0); Mean Platelet Volume 10.3 fL (9.4-12.3); Monocytes Absolute Auto 0.7 X10*3/uL (0.1-1.2); Monocytes Percent Auto 6.5 % (2-11); Neutrophils Percent Auto 85.6 % (45-73); Platelet Count 225 X10*3/uL (160-400); Red Blood Count 2.56 X10*6/uL (4.20-5.50); Red Cell Distribution Width 14.8 % (11.0-16.0); White Blood Count 10.5 X10*3/uL (4.8-10.8)
[2025-02-09 05:18] LABS: Venous Blood Gas Refer to POC result
[2025-02-09 05:19] LABS: Alanine Aminotransferase 107 U/L (0-31); Albumin Level 2.9 g/dL (3.5-5.0); Alkaline Phosphatase 91 U/L (39-117); Anion Gap 18 (12-20); Aspartate Amino Transferase 31 U/L (5-31); Bilirubin Total 0.6 mg/dL (0.0-1.0); Blood Urea Nitrogen 76 mg/dL (9-16); Carbon Dioxide 18 mmol/L (22-29); Chloride 104 mmol/L (96-108); Creatinine Clr Calc Pharmacy 9.9; Estimated Glomerular Filt Rate 12; Glucose Random 222 mg/dL (60-115); Magnesium 2.2 mg/dL (1.6-2.6); Phosphorus 5.7 mg/dL (2.7-4.5); Potassium 4.4 mmol/L (3.3-5.1); Sodium 136 mmol/L (135-145)
[2025-02-09] MEDS: Calcium Chloride 1 GM/10 ML SYRINGE IVPUSH (06:23)
[2025-02-09] MEDS: Albumin Human 25 % 50 ML 100 ML IV ×3 (06:24→09:56)
[2025-02-09] MEDS: Levothyroxine Sodium 100 MCG/5 ML VIAL 75 MCG IVPUSH (06:24)
[2025-02-09] MEDS: Pantoprazole Sodium 40 MG/10 ML VIAL IVPUSH (06:24)
[2025-02-09] MEDS: Isosorbide Dinitrate 20 MG TABLET PO ×3 (07:36→16:59)
[2025-02-09] MEDS: 0.9 % Sodium Chloride Flush 3 ML SYRINGE IVFLUSH ×2 (07:36→15:21)
[2025-02-09] MEDS: cloNIDine HCL 0.1 MG TABLET PO ×2 (08:01→21:14)
[2025-02-09] MEDS: Chlorhexidine Gluc Oral Rinse 15 ML MOUTHWASH BUCCAL ×3 (08:02→21:14)
[2025-02-09] MEDS: hydrALAZINE HCl 50 MG TABLET PO ×4 (08:02→21:14)
[2025-02-09] MEDS: Labetalol HCL 100 MG TABLET PO (08:02)
--- NOTE | 2025-02-09 08:36 | P.PNCC_ITS ---
Subjective Subjective Date of Service: 02/09/25 Interval History: no significant overnight events Critical Care Time (minutes): 60 Physical Exam 2 Vital Signs: Vital Signs: Last Vital Signs Temp 99.7 F 02/09/25 08:00 Pulse 65 02/09/25 08:00 Resp 12 02/09/25 08:00 BP 185/58 H 02/09/25 08:01 Pulse Ox 98 02/09/25 08:00 O2 Del Method Mechanical Ventil ation 02/09/25 08:00 O2 Flow Rate 21 02/03/25 06:00 FiO2 21 02/09/25 08:00 BMI result Body Mass Index 17.3 Const: General: comfortable, no acute distress, well developed, alert and awake HEENT: Head: Yes normal to inspection, Yes normocephalic and Yes atraumatic Eyes: General: appearance normal, both eyes and all related structures Neck: Neck: Yes normal visual inspection, Yes full ROM, Yes no meningeal signs, Yes trachea midline and Yes supple Chest: Chest palpation & inspection: normal inspection of the chest Resp: Other: no appreciable overt rales, rhonchi, wheezing Effort & Inspection: normal respiratory effort Cardio: Rate: regular rate Rhythm: regular rhythm GI: Inspection: Yes normal to inspection, No Abdominal wall edema and No distended Palpation (GI): Soft to palpation, not firm, nontender, no guarding and not rigid Skin: General skin exam: no rashes or lesions noted Neuro: Other: no appreciable purposeful movements General: tone normal and no meningeal signs Extrem: General: Yes normal to inspection, Yes full ROM, Yes capillary refill normal and Yes no clubbing, cyanosis or edema Psych: Appearance: grossly normal Objective Data Labs 02/09/25 04:52 02/09/25 04:52 Labs: Laboratory Results - last 24 hr 02/08/25 02/08/25 02/08/25 11:08 17:03 23:35 WBC RBC Hgb Hct MCV MCH MCHC RDW Plt Count MPV Immature Gran % (Auto) Neut % (Auto) Lymph % (Auto) [place] % (Auto) Eos % (Auto) Baso % (Auto) Lymph # (Auto) [place] # (Auto) Eos # (Auto) Baso # (Auto) Abs Immat Gran (auto) Absolute Neuts (auto) Absolute Nucleated RBC Nucleated RBC % (auto) VBG pH VBG pCO2 VBG pO2 VBG HCO3 VBG O2 Saturation VBG Base Excess Sodium Potassium Chloride Carbon Dioxide Anion Gap BUN Creatinine Estim Creat Clear Calc Estimated GFR POC Glucose 227 H 263 H 220 H Random Glucose Calcium Phosphorus Magnesium Total Bilirubin AST ALT Alkaline Phosphatase Total Protein Albumin 02/09/25 02/09/25 04:52 04:58 WBC 10.5 RBC 2.56 L Hgb 7.9 L Hct 23.8 L MCV 93.0 MCH 30.9 MCHC 33.2 RDW 14.8 Plt Count 225 MPV 10.3 Immature Gran % (Auto) 0.8 H Neut % (Auto) 85.6 H Lymph % (Auto) 5.0 L [place] % (Auto) 6.5 Eos % (Auto) 1.9 Baso % (Auto) 0.2 Lymph # (Auto) 0.5 L [place] # (Auto) 0.7 Eos # (Auto) 0.2 Baso # (Auto) 0.0 Abs Immat Gran (auto) 0.08 H Absolute Neuts (auto) 9.0 H Absolute Nucleated RBC 0.000 Nucleated RBC % (auto) 0.0 VBG pH 7.61 H* VBG pCO2 22 VBG pO2 40 VBG HCO3 22 VBG O2 Saturation 78.0 VBG Base Excess 1.8 Sodium 136 Potassium 4.4 D Chloride 104 Carbon Dioxide 18 L Anion Gap 18 BUN 76 H Creatinine 3.72 H Estim Creat Clear Calc 9.9 Estimated GFR 12 POC Glucose Random Glucose 222 H Calcium 8.0 L Phosphorus 5.7 H Magnesium 2.2 Total Bilirubin 0.6 AST 31 ALT 107 H Alkaline Phosphatase 91 Total Protein 6.0 L Albumin 2.9 L Microbiology Microbiology Results: Microbiology 01/19/25 07:38 Blood - Venous Blood Culture - Final No growth after 5 days. 01/19/25 07:14 Blood - Venous Blood Culture - Final No growth after 5 days. Progress Note: A&P Assessment and plan (1) Acute hypoxic respiratory failure: Status: Acute (2) Pulmonary edema: Status: Acute (3) Heart failure: Status: Acute (4) Renal failure: Status: Acute (5) Myopathy: Status: Acute Plan Patient is a 79 Y F w/ hypertension, hyperlipidemia, diabetes mellitus, c/b CAD, prior CVA c/b R hemiparesis, hypothyroidism, and LUANA presenting from nursing facility to emergency department on 01/19 w/ obtundation, found to be hypoxic; in emergency department, patient intubated 01/19, found to have CT C c/f pulmonary edema and/or pneumonia, extubated 01/22, though c/b persistent respiratory failure d/t weakness, re-intubated 01/29; ICU course c/b renal failure, initiated on hemodialysis 01/27 and hyperglycemia N: persistent encephalopathy, likely toxic-metabolic, despite off sedating gtts; CT H 02/06 demonstrating lacunar infarct; MRI 02/07 re-demonstrating lacunar infarct and posterior parietal infarct CV: HFrEF; hypertension; atrial fibrillation previously on apixaban, though held in setting of upper GI bleed R: persistent respiratory failure, intubated 01/19, extubated 01/22, re- intubated 01/29, wean as tolerated GI: upper GI bleed d/t duodenal ulcer s/p clipping, embolization, resolved; tube feeds; PPI : acute renal failure, initiated on hemodialysis 01/27, last session 02/07; to appreciate nephrology recommendations; to closely monitor electrolytes H: acute blood loss anemia d/t upper GI bleed, resolved; DVT prophylaxis w/ mechanical devices ID: empiric zosyn in setting of fever E: hyperglycemia, insulin sliding scale MSK: critical illness myopathy P: no acute issues S: ongoing goals of care discussions w/ daughters Quality Stroke Does the patient have a stroke diagnosis?: Yes Reason for No Anti-thrombotic by Day Two: N/A - Med Ordered VTE Prior VTE?: No VTE Risk Level:: Medical - moderate - high VTE Device Contraindication: N/A - Device Ordered VTE Drug Contraindication: Treatment Not Tolerated
--- NOTE | 2025-02-09 09:34 | MHC.CLN ---
F/U REVIEWED LABS PT TOLERATING GLUCERNA AT MAX GOAL RATE 70ML/HR PROVIDES 1680KCALS (29KCALS/KG BASED ON IBW), 70G PROTEIN (1.2G/KG), 1433ML FREE WATER FROM FORMULA MONITOR RG, LYTES AND TF TOLERANCE
[2025-02-09] MEDS: Alteplase Cath Clear 2 MG/2 ML VIAL 2.6 MG INTRACATH (10:00)
[2025-02-09 11:43] LABS: Glucose, Whole Blood 191 mg/dL (60-115)
--- NOTE | 2025-02-09 12:18 | MHC.CM.PN ---
Pt remains intubated : MRI confirmed + CVA: family continues to decide on care options. CM to follow
--- NOTE | 2025-02-09 13:44 | P.PNNP_ITS ---
Subjective Subjective Date of Service: 02/09/25 Interval history: no significant overnight events; seen on HD this AM Physical Exam 2 Vital Signs: Vital Signs: Last Vital Signs Temp 99.1 F 02/09/25 13:00 Pulse 70 02/09/25 13:00 Resp 12 02/09/25 13:00 BP 129/54 L 02/09/25 13:00 Pulse Ox 97 02/09/25 13:00 O2 Del Method Mechanical Ventil ation 02/09/25 13:00 O2 Flow Rate 21 02/03/25 06:00 FiO2 21 02/09/25 13:00 BMI result Body Mass Index 17.3 Const: General: no acute distress Resp: Auscultation: diminished lung sounds Cardio: Rate: regular rate GI: Palpation (GI): Soft to palpation Neuro: Other: Intubated & sedated Objective Data Labs 02/09/25 04:52 02/09/25 04:52 Labs: Laboratory Results - last 24 hr 02/08/25 02/08/25 02/09/25 17:03 23:35 04:52 WBC 10.5 RBC 2.56 L Hgb 7.9 L Hct 23.8 L MCV 93.0 MCH 30.9 MCHC 33.2 RDW 14.8 Plt Count 225 MPV 10.3 Immature Gran % (Auto) 0.8 H Neut % (Auto) 85.6 H Lymph % (Auto) 5.0 L [place] % (Auto) 6.5 Eos % (Auto) 1.9 Baso % (Auto) 0.2 Lymph # (Auto) 0.5 L [place] # (Auto) 0.7 Eos # (Auto) 0.2 Baso # (Auto) 0.0 Abs Immat Gran (auto) 0.08 H Absolute Neuts (auto) 9.0 H Absolute Nucleated RBC 0.000 Nucleated RBC % (auto) 0.0 VBG pH VBG pCO2 VBG pO2 VBG HCO3 VBG O2 Saturation VBG Base Excess Sodium 136 Potassium 4.4 D Chloride 104 Carbon Dioxide 18 L Anion Gap 18 BUN 76 H Creatinine 3.72 H Estim Creat Clear Calc 9.9 Estimated GFR 12 POC Glucose 263 H 220 H Random Glucose 222 H Calcium 8.0 L Phosphorus 5.7 H Magnesium 2.2 Total Bilirubin 0.6 AST 31 ALT 107 H Alkaline Phosphatase 91 Total Protein 6.0 L Albumin 2.9 L 02/09/25 02/09/25 04:58 11:29 WBC RBC Hgb Hct MCV MCH MCHC RDW Plt Count MPV Immature Gran % (Auto) Neut % (Auto) Lymph % (Auto) [place] % (Auto) Eos % (Auto) Baso % (Auto) Lymph # (Auto) [place] # (Auto) Eos # (Auto) Baso # (Auto) Abs Immat Gran (auto) Absolute Neuts (auto) Absolute Nucleated RBC Nucleated RBC % (auto) VBG pH 7.61 H* VBG pCO2 22 VBG pO2 40 VBG HCO3 22 VBG O2 Saturation 78.0 VBG Base Excess 1.8 Sodium Potassium Chloride Carbon Dioxide Anion Gap BUN Creatinine Estim Creat Clear Calc Estimated GFR POC Glucose 191 H Random Glucose Calcium Phosphorus Magnesium Total Bilirubin AST ALT Alkaline Phosphatase Total Protein Albumin Microbiology Microbiology Results: Microbiology 01/19/25 07:38 Blood - Venous Blood Culture - Final No growth after 5 days. 01/19/25 07:14 Blood - Venous Blood Culture - Final No growth after 5 days. Procedures Date of Service Date of Service: 02/09/25 Assessment & Plan Assessment and plan (1) Acute kidney injury superimposed on CKD: Status: Acute Plan 79-year-old woman with acute kidney injury superimposed on chronic kidney disease due to tubular injury Urine sediments bland therefore glomerular nephritis or interstitial disease seem less likely. Seen on HD today ; Continue rest of current medication regimen ; Labs AM; Shall F/U closely Progress Note: Quality Stroke Does the patient have a stroke diagnosis?: Yes Reason for No Anti-thrombotic by Day Two: N/A - Med Ordered
[2025-02-09 17:45] LABS: Glucose, Whole Blood 286 mg/dL (60-115)
--- NOTE | 2025-02-09 19:42 | PC.NURSE ---
assumed care 0700, handed off at 1900. patient stable on vent without sedation, grimaces with oral care. patient PSV trial ended early due to dialysis starting. see I+O and seperate dialysis paper charting. see shift assessment. ongoing talks with family, case management, MD and RN about plan of care. patinet course uncomplicated today.
[2025-02-09] MEDS: Atorvastatin Calcium 80 MG TABLET PO (21:14)
[2025-02-10] VITALS (34 sets, daily range): BP systolic 116–168; BP diastolic 34–57; PULSE 58–77; RESP 12–23; TEMP 34.9–38.1; O2SAT 96–100; BMI 17.9
[2025-02-10 00:15] LABS: Glucose, Whole Blood 225 mg/dL (60-115)
[2025-02-10] MEDS: Insulin Lispro 100 UNIT/ML 3 ML VIAL SUBCUT ×4 (00:23→18:26)
[2025-02-10] MEDS: 0.9 % Sodium Chloride Flush 3 ML SYRINGE IVFLUSH ×4 (00:24→20:17)
[2025-02-10] MEDS: Piperacillin Sodium/Tazobactam 2.25 GM in 0.9 % Sodium Chloride 50 ML IV ×4 (05:19→22:54)
[2025-02-10] MEDS: Pantoprazole Sodium 40 MG/10 ML VIAL IVPUSH (05:19)
[2025-02-10] MEDS: Levothyroxine Sodium 100 MCG/5 ML VIAL 75 MCG IVPUSH (05:19)
[2025-02-10 05:33] LABS: VBG Base Excess 4.4 mmol/L; VBG HCO3 25 mmol/L (22-26); VBG pCO2 27 mmHg; VBG pH 7.57 (7.32-7.43); VBG pO2 34 mmHg; Venous Blood Gas Refer to POC result
[2025-02-10 05:41] LABS: MANUAL DIFF FLAG NO
[2025-02-10 05:43] LABS: Basophils Percent Auto 0.3 % (0-2); Eosinophils Absolute Auto 0.3 X10*3/uL (0.0-0.4); Eosinophils Percent Auto 3.1 % (0-4); Hematocrit 22.6 % (37.0-47.0); Hemoglobin 7.2 g/dl (12.0-16.0); Imm Gran Abs Auto 0.08 X10*3/uL (0.00-0.03); Imm Gran Pct Auto 0.8 % (0.0-0.4); Lymphocytes Absolute Auto 0.5 X10*3/uL (1.2-4.9); Lymphocytes Percent Auto 4.4 % (20-40); Mean Corpuscular HGB Conc 31.9 g/dl (31.0-35.0); Mean Corpuscular Hemoglobin 29.8 pg (27.0-33.0); Mean Corpuscular Volume 93.4 fL (80.0-98.0); Mean Platelet Volume 10.3 fL (9.4-12.3); Monocytes Absolute Auto 0.7 X10*3/uL (0.1-1.2); Monocytes Percent Auto 6.6 % (2-11); Neutrophils Absolute Auto 8.8 x10*3/uL (2.0-8.3); Neutrophils Percent Auto 84.8 % (45-73); Platelet Count 203 X10*3/uL (160-400); Red Blood Count 2.42 X10*6/uL (4.20-5.50); Red Cell Distribution Width 14.6 % (11.0-16.0); White Blood Count 10.4 X10*3/uL (4.8-10.8)
[2025-02-10 06:12] LABS: Alanine Aminotransferase 84 U/L (0-31); Albumin Level 3.3 g/dL (3.5-5.0); Alkaline Phosphatase 84 U/L (39-117); Anion Gap 19 (12-20); Aspartate Amino Transferase 30 U/L (5-31); Bilirubin Total 0.7 mg/dL (0.0-1.0); Blood Urea Nitrogen 54 mg/dL (9-16); Calcium 8.2 mg/dL (8.4-10.2); Carbon Dioxide 23 mmol/L (22-29); Chloride 102 mmol/L (96-108); Creatinine Clr Calc Pharmacy 11.8; Estimated Glomerular Filt Rate 14; Glucose Random 226 mg/dL (60-115); Magnesium 2.1 mg/dL (1.6-2.6); Potassium 4.5 mmol/L (3.3-5.1); Sodium 139 mmol/L (135-145); Total Protein 6.3 g/dL (6.5-8.0)
[2025-02-10] MEDS: Isosorbide Dinitrate 20 MG TABLET PO ×3 (08:42→16:28)
[2025-02-10] MEDS: Labetalol HCL 100 MG TABLET PO (08:42)
[2025-02-10] MEDS: hydrALAZINE HCl 50 MG TABLET PO ×4 (08:43→20:17)
[2025-02-10] MEDS: Chlorhexidine Gluc Oral Rinse 15 ML MOUTHWASH BUCCAL ×3 (08:43→20:17)
[2025-02-10] MEDS: cloNIDine HCL 0.1 MG TABLET PO ×2 (08:48→20:17)
--- NOTE | 2025-02-10 08:53 | P.PNCC_ITS ---
Subjective Subjective Date of Service: 02/10/25 Interval History: no signficant overnight events Critical Care Time (minutes): 60 Physical Exam 2 Vital Signs: Vital Signs: Last Vital Signs Temp 100.4 F 02/10/25 08:00 Pulse 60 02/10/25 08:00 Resp 12 02/10/25 08:00 BP 168/53 H 02/10/25 08:00 Pulse Ox 98 02/10/25 08:00 O2 Del Method Mechanical Ventil ation 02/10/25 08:00 O2 Flow Rate 21 02/03/25 06:00 FiO2 21 02/10/25 08:04 BMI result Body Mass Index 17.9 Const: Other: intubated, not sedated; no appreciable spontaneous movements General: no acute distress and well developed HEENT: Head: Yes normal to inspection, Yes normocephalic and Yes atraumatic Eyes: General: appearance normal, both eyes and all related structures Neck: Neck: Yes normal visual inspection, Yes full ROM, Yes no meningeal signs, Yes trachea midline and Yes supple Chest: Chest palpation & inspection: normal inspection of the chest Resp: Other: no appreciable rales, rhonchi, wheezing Effort & Inspection: normal respiratory effort Cardio: Rate: regular rate Rhythm: regular rhythm GI: Inspection: Yes normal to inspection, No Abdominal wall edema and No distended Palpation (GI): Soft to palpation, not firm, nontender, no guarding and not rigid Skin: General skin exam: no rashes or lesions noted Neuro: General: tone normal and no meningeal signs Extrem: Other: appreciable trace pitting edema to bilateral shins General: Yes normal to inspection, Yes full ROM and Yes capillary refill normal Psych: Other: unable to assess Objective Data Labs 02/10/25 05:17 02/10/25 05:17 Labs: Laboratory Results - last 24 hr 02/09/25 02/09/25 02/10/25 11:29 17:20 00:05 WBC RBC Hgb Hct MCV MCH MCHC RDW Plt Count MPV Immature Gran % (Auto) Neut % (Auto) Lymph % (Auto) [place] % (Auto) Eos % (Auto) Baso % (Auto) Lymph # (Auto) [place] # (Auto) Eos # (Auto) Baso # (Auto) Abs Immat Gran (auto) Absolute Neuts (auto) Absolute Nucleated RBC Nucleated RBC % (auto) VBG pH VBG pCO2 VBG pO2 VBG HCO3 VBG O2 Saturation VBG Base Excess Sodium Potassium Chloride Carbon Dioxide Anion Gap BUN Creatinine Estim Creat Clear Calc Estimated GFR POC Glucose 191 H 286 H 225 H Random Glucose Calcium Phosphorus Magnesium Total Bilirubin AST ALT Alkaline Phosphatase Total Protein Albumin 02/10/25 02/10/25 05:17 05:29 WBC 10.4 RBC 2.42 L Hgb 7.2 L Hct 22.6 L MCV 93.4 MCH 29.8 MCHC 31.9 RDW 14.6 Plt Count 203 MPV 10.3 Immature Gran % (Auto) 0.8 H Neut % (Auto) 84.8 H Lymph % (Auto) 4.4 L [place] % (Auto) 6.6 Eos % (Auto) 3.1 Baso % (Auto) 0.3 Lymph # (Auto) 0.5 L [place] # (Auto) 0.7 Eos # (Auto) 0.3 Baso # (Auto) 0.0 Abs Immat Gran (auto) 0.08 H Absolute Neuts (auto) 8.8 H Absolute Nucleated RBC 0.000 Nucleated RBC % (auto) 0.0 VBG pH 7.57 H VBG pCO2 27 VBG pO2 34 VBG HCO3 25 VBG O2 Saturation 61.0 VBG Base Excess 4.4 Sodium 139 Potassium 4.5 Chloride 102 Carbon Dioxide 23 Anion Gap 19 BUN 54 H Creatinine 3.24 H Estim Creat Clear Calc 11.8 Estimated GFR 14 POC Glucose Random Glucose 226 H Calcium 8.2 L Phosphorus 6.0 H Magnesium 2.1 Total Bilirubin 0.7 AST 30 ALT 84 H Alkaline Phosphatase 84 Total Protein 6.3 L Albumin 3.3 L Microbiology Microbiology Results: Microbiology 01/19/25 07:38 Blood - Venous Blood Culture - Final No growth after 5 days. 01/19/25 07:14 Blood - Venous Blood Culture - Final No growth after 5 days. Progress Note: A&P Assessment and plan (1) Acute hypoxic respiratory failure: Status: Acute (2) Heart failure: Status: Acute (3) Renal failure: Status: Acute (4) Myopathy: Status: Acute Plan Patient is a 79 Y F w/ hypertension, hyperlipidemia, diabetes mellitus, c/b CAD, prior CVA c/b R hemiparesis, hypothyroidism, and LUANA presenting from nursing facility to emergency department on 01/19 w/ obtundation, found to be hypoxic; in emergency department, patient intubated 01/19, found to have CT C c/f pulmonary edema and/or pneumonia, extubated 01/22, though c/b persistent respiratory failure d/t weakness, re-intubated 01/29; ICU course c/b renal failure, initiated on hemodialysis 01/27 and hyperglycemia N: persistent encephalopathy, likely toxic-metabolic, despite off sedating gtts; CT H 02/06 demonstrating lacunar infarct; MRI 02/07 re-demonstrating lacunar infarct and posterior parietal infarct CV: HFrEF; hypertension; atrial fibrillation previously on apixaban, though held in setting of upper GI bleed R: persistent respiratory failure, intubated 01/19, extubated 01/22, re- intubated 01/29, wean as tolerated GI: upper GI bleed d/t duodenal ulcer s/p clipping, embolization, resolved; tube feeds; PPI : acute renal failure, initiated on hemodialysis 01/27, last session 02/09; to appreciate nephrology recommendations; to closely monitor electrolytes H: acute blood loss anemia d/t upper GI bleed, resolved; DVT prophylaxis w/ mechanical devices ID: empiric zosyn in setting of fever E: hyperglycemia, insulin sliding scale MSK: critical illness myopathy P: no acute issues S: ongoing goals of care discussions w/ daughters Quality Stroke Does the patient have a stroke diagnosis?: Yes Reason for No Anti-thrombotic by Day Two: N/A - Med Ordered VTE Prior VTE?: No VTE Risk Level:: Medical - moderate - high VTE Device Contraindication: N/A - Device Ordered VTE Drug Contraindication: Treatment Not Tolerated
[2025-02-10] MEDS: Calcium Chloride 1 GM/10 ML SYRINGE IVPUSH (09:47)
[2025-02-10] MEDS: Albumin Human 25 % 50 ML 100 ML IV (11:01)
[2025-02-10 11:54] LABS: Glucose, Whole Blood 257 mg/dL (60-115)
--- NOTE | 2025-02-10 12:52 | HO.SKINPHOTO ---
Location: sacrum some dark discoloration, blanchable redness
--- NOTE | 2025-02-10 16:58 | PC.NURSE ---
ICU Critical Care Nursing Note Neuro: Pt more awake, eyes spontaneously open, briefly tracks people walking in room. Positive cough and gag reflex. Moves left hand and b/l feet spontaneously. No sedation medications.? Cardiac: sinus rhythm on tele? Resp: spontaneous breathing trial started 11:15. PSV 8/5.0, 21%. Patient tolerated well approximately 11:15-16:00. 16:00 patient having apnea alarms, low volumes <200. RT notified. The patient was put back to ACPC settings at this time.? GI/: lemus catheter, oliguria, no plan for dialysis today.? Endocrine: POC glucose elevated 257. 6 unit SSI lispro given per orders.? Integumentary/Musculoskeletal: see new skin photo of sacrum Psychosocial (family etc.): Daughter and son-in-law visited patient at bedside, update provided.?Jen (daughter) at bedside at 16:30 to visit today. Infectious Disease: IV zosyn 2.25G given per MAR orders.? Central Lines: HD catheter to right IJ with 3rd lumen access. 2 PIVs to left arm patent and functioning.?
[2025-02-10 18:10] LABS: Glucose, Whole Blood 224 mg/dL (60-115)
[2025-02-10] MEDS: Atorvastatin Calcium 80 MG TABLET PO (20:17)
[2025-02-11] VITALS (37 sets, daily range): BP systolic 98–184; BP diastolic 41–67; PULSE 58–72; RESP 12–27; TEMP 35–37.7; O2SAT 93–100; BMI 17.2
[2025-02-11] MEDS: HYDROmorphone HCl 1 MG/ML SYRINGE IVPUSH ×3 (00:10→19:44)
[2025-02-11 00:29] LABS: Glucose, Whole Blood 204 mg/dL (60-115)
[2025-02-11] MEDS: Insulin Lispro 100 UNIT/ML 3 ML VIAL SUBCUT ×5 (00:33→23:44)
[2025-02-11] MEDS: Piperacillin Sodium/Tazobactam 2.25 GM in 0.9 % Sodium Chloride 50 ML IV ×4 (04:20→22:30)
[2025-02-11 05:16] LABS: VBG Base Excess 0.2 mmol/L; VBG HCO3 22 mmol/L (22-26); VBG pCO2 28 mmHg; VBG pH 7.51 (7.32-7.43); VBG pO2 43 mmHg
[2025-02-11] MEDS: Levothyroxine Sodium 100 MCG/5 ML VIAL 75 MCG IVPUSH (05:31)
[2025-02-11] MEDS: Pantoprazole Sodium 40 MG/10 ML VIAL IVPUSH (05:31)
[2025-02-11 05:38] LABS: Venous Blood Gas Refer to POC result
[2025-02-11 06:00] LABS: MANUAL DIFF FLAG NO
[2025-02-11 06:01] LABS: Basophils Percent Auto 0.3 % (0-2); Eosinophils Absolute Auto 0.5 X10*3/uL (0.0-0.4); Eosinophils Percent Auto 4.8 % (0-4); Imm Gran Abs Auto 0.07 X10*3/uL (0.00-0.03); Imm Gran Pct Auto 0.7 % (0.0-0.4); Lymphocytes Absolute Auto 0.4 X10*3/uL (1.2-4.9); Lymphocytes Percent Auto 4.5 % (20-40); Mean Corpuscular HGB Conc 32.9 g/dl (31.0-35.0); Mean Corpuscular Hemoglobin 30.2 pg (27.0-33.0); Mean Platelet Volume 10.7 fL (9.4-12.3); Monocytes Absolute Auto 0.7 X10*3/uL (0.1-1.2); Monocytes Percent Auto 6.6 % (2-11); Neutrophils Absolute Auto 8.2 x10*3/uL (2.0-8.3); Neutrophils Percent Auto 83.1 % (45-73); Platelet Count 207 X10*3/uL (160-400); Red Blood Count 2.25 X10*6/uL (4.20-5.50); Red Cell Distribution Width 14.3 % (11.0-16.0); White Blood Count 9.9 X10*3/uL (4.8-10.8)
[2025-02-11 06:08] LABS: Hematocrit 20.7 % (37.0-47.0); Hemoglobin 6.8 g/dl (12.0-16.0)
[2025-02-11 06:29] LABS: Alanine Aminotransferase 84 U/L (0-31); Albumin Level 3.1 g/dL (3.5-5.0); Alkaline Phosphatase 82 U/L (39-117); Anion Gap 20 (12-20); Aspartate Amino Transferase 38 U/L (5-31); Bilirubin Total 0.6 mg/dL (0.0-1.0); Blood Urea Nitrogen 71 mg/dL (9-16); Calcium 8.2 mg/dL (8.4-10.2); Carbon Dioxide 20 mmol/L (22-29); Chloride 104 mmol/L (96-108); Creatinine Clr Calc Pharmacy 8.8; Estimated Glomerular Filt Rate 10; Glucose Random 205 mg/dL (60-115); Magnesium 2.1 mg/dL (1.6-2.6); Potassium 4.8 mmol/L (3.3-5.1); Sodium 139 mmol/L (135-145); Total Protein 6.1 g/dL (6.5-8.0)
[2025-02-11 06:33] LABS: Glucose, Whole Blood 210 mg/dL (60-115)
--- NOTE | 2025-02-11 06:39 | PC.NURSE ---
Assumed care at 1900, pt intubated. On ACPC settings - see vent assessment. Medicated for pain with prn dilaudid?- see JAN.? Critical Hgb/Hct 6.8/20.7 - 1 unit PRBC ordered and to be administered.
[2025-02-11] MEDS: Chlorhexidine Gluc Oral Rinse 15 ML MOUTHWASH BUCCAL ×3 (08:20→21:01)
[2025-02-11] MEDS: cloNIDine HCL 0.1 MG TABLET PO ×2 (08:21→21:01)
[2025-02-11] MEDS: Isosorbide Dinitrate 20 MG TABLET PO ×3 (08:21→16:48)
[2025-02-11] MEDS: hydrALAZINE HCl 50 MG TABLET PO ×4 (08:21→21:00)
[2025-02-11] MEDS: 0.9 % Sodium Chloride Flush 3 ML SYRINGE IVFLUSH ×3 (08:21→23:43)
[2025-02-11] MEDS: Labetalol HCL 100 MG TABLET PO (08:21)
--- NOTE | 2025-02-11 09:30 | P.PNCC_ITS ---
Subjective Subjective Date of Service: 02/11/25 Interval History: no significant overnight events Critical Care Time (minutes): 60 Physical Exam 2 Vital Signs: Vital Signs: Last Vital Signs Temp 99.9 F 02/11/25 08:00 Pulse 72 02/11/25 08:00 Resp 24 H 02/11/25 08:00 BP 165/54 H 02/11/25 08:00 Pulse Ox 99 02/11/25 08:00 O2 Del Method Mechanical Ventil ation 02/11/25 08:00 O2 Flow Rate 21 02/03/25 06:00 FiO2 21 02/11/25 08:00 BMI result Body Mass Index 17.2 Const: Other: intubated; no appreciable spontaneous movements; opens eyes to verbal stimulus; unable to follow commands General: cooperative, no acute distress and well developed HEENT: Head: Yes normal to inspection, Yes normocephalic and Yes atraumatic Eyes: General: appearance normal, both eyes and all related structures Neck: Neck: Yes normal visual inspection, Yes full ROM, Yes trachea midline and Yes supple Chest: Chest palpation & inspection: normal inspection of the chest Resp: Other: no appreciable overt rales, rhonchi, wheezing Effort & Inspection: normal respiratory effort Cardio: Rate: regular rate Rhythm: regular rhythm GI: Inspection: Yes normal to inspection, No Abdominal wall edema and No distended Palpation (GI): Soft to palpation, not firm, nontender, no guarding and not rigid Skin: General skin exam: no rashes or lesions noted Neuro: General: No moves all extremities Extrem: General: Yes normal to inspection, Yes full ROM, Yes capillary refill normal and Yes no clubbing, cyanosis or edema Psych: Other: unable to assess Objective Data Labs 02/11/25 05:25 02/11/25 05:25 Labs: Laboratory Results - last 24 hr 02/10/25 02/10/25 02/11/25 11:45 18:06 00:19 WBC RBC Hgb Hct MCV MCH MCHC RDW Plt Count MPV Immature Gran % (Auto) Neut % (Auto) Lymph % (Auto) [place] % (Auto) Eos % (Auto) Baso % (Auto) Lymph # (Auto) [place] # (Auto) Eos # (Auto) Baso # (Auto) Abs Immat Gran (auto) Absolute Neuts (auto) Absolute Nucleated RBC Nucleated RBC % (auto) VBG pH VBG pCO2 VBG pO2 VBG HCO3 VBG O2 Saturation VBG Base Excess Sodium Potassium Chloride Carbon Dioxide Anion Gap BUN Creatinine Estim Creat Clear Calc Estimated GFR POC Glucose 257 H 224 H 204 H Random Glucose Calcium Phosphorus Magnesium Total Bilirubin AST ALT Alkaline Phosphatase Total Protein Albumin Blood Type Antibody Screen Crossmatch 02/11/25 02/11/25 02/11/25 05:12 05:25 06:29 WBC 9.9 RBC 2.25 L Hgb 6.8 L* Hct 20.7 L* MCV 92.0 MCH 30.2 MCHC 32.9 RDW 14.3 Plt Count 207 MPV 10.7 Immature Gran % (Auto) 0.7 H Neut % (Auto) 83.1 H Lymph % (Auto) 4.5 L [place] % (Auto) 6.6 Eos % (Auto) 4.8 H Baso % (Auto) 0.3 Lymph # (Auto) 0.4 L [place] # (Auto) 0.7 Eos # (Auto) 0.5 H Baso # (Auto) 0.0 Abs Immat Gran (auto) 0.07 H Absolute Neuts (auto) 8.2 Absolute Nucleated RBC 0.000 Nucleated RBC % (auto) 0.0 VBG pH 7.51 H VBG pCO2 28 VBG pO2 43 VBG HCO3 22 VBG O2 Saturation Not Reportable VBG Base Excess 0.2 Sodium 139 Potassium 4.8 Chloride 104 Carbon Dioxide 20 L Anion Gap 20 BUN 71 H Creatinine 4.16 H* Estim Creat Clear Calc 8.8 Estimated GFR 10 POC Glucose 210 H Random Glucose 205 H Calcium 8.2 L Phosphorus 8.0 H Magnesium 2.1 Total Bilirubin 0.6 AST 38 H ALT 84 H Alkaline Phosphatase 82 Total Protein 6.1 L Albumin 3.1 L Blood Type A Positive Antibody Screen NEGATIVE Crossmatch See Detail Microbiology Microbiology Results: Microbiology 01/19/25 07:38 Blood - Venous Blood Culture - Final No growth after 5 days. 01/19/25 07:14 Blood - Venous Blood Culture - Final No growth after 5 days. Progress Note: A&P Assessment and plan (1) Acute hypoxic respiratory failure: Status: Acute (2) Pulmonary edema: Status: Acute (3) Heart failure: Status: Acute (4) Renal failure: Status: Acute (5) Myopathy: Status: Acute Plan Patient is a 79 Y F w/ hypertension, hyperlipidemia, diabetes mellitus, c/b CAD, prior CVA c/b R hemiparesis, hypothyroidism, and LUANA presenting from nursing facility to emergency department on 01/19 w/ obtundation, found to be hypoxic; in emergency department, patient intubated 01/19, found to have CT C c/f pulmonary edema and/or pneumonia, extubated 01/22, though c/b persistent respiratory failure d/t weakness, re-intubated 01/29; ICU course c/b renal failure, initiated on hemodialysis 01/27 and hyperglycemia N: persistent encephalopathy, likely toxic-metabolic, despite off sedating gtts; CT H 02/06 demonstrating lacunar infarct; MRI 02/07 re-demonstrating lacunar infarct and posterior parietal infarct CV: HFrEF; hypertension; atrial fibrillation previously on apixaban, though held in setting of upper GI bleed R: persistent respiratory failure, intubated 01/19, extubated 01/22, re- intubated 01/29, wean as tolerated GI: upper GI bleed d/t duodenal ulcer s/p clipping, embolization, resolved; tube feeds; PPI : acute renal failure, initiated on hemodialysis 01/27, last session 02/09; to appreciate nephrology recommendations; to closely monitor electrolytes H: acute blood loss anemia d/t upper GI bleed, resolved; DVT prophylaxis w/ mechanical devices ID: empiric zosyn in setting of fever E: hyperglycemia, insulin sliding scale MSK: critical illness myopathy P: no acute issues S: ongoing goals of care discussions w/ daughters Quality Stroke Does the patient have a stroke diagnosis?: Yes Reason for No Anti-thrombotic by Day Two: N/A - Med Ordered VTE Prior VTE?: No VTE Risk Level:: Medical - moderate - high VTE Device Contraindication: N/A - Device Ordered VTE Drug Contraindication: Treatment Not Tolerated
[2025-02-11] MEDS: Calcium Chloride 1 GM/10 ML SYRINGE IVPUSH (10:06)
[2025-02-11] MEDS: Albumin Human 25 % 50 ML 100 ML IV (10:06)
[2025-02-11 12:06] LABS: Glucose, Whole Blood 223 mg/dL (60-115)
[2025-02-11 18:32] LABS: Glucose, Whole Blood 233 mg/dL (60-115)
--- NOTE | 2025-02-11 19:19 | PC.NURSE ---
Assumed care of patient 0700. Pt opens eyes to name, moves left hand spontaneously, tracks voices, does not follow commands. 1 unit RBCs transfusion initiated per orders for low H+H. Pt grimacing to oral care of left mouth, ETT adjusted with RT to right side of mouth. Blood pressure elevated. PRN Dilaudid 1mg IVP given for 5/10 nonverbal pain scale. PSV trial 08:30-17:00. No other changes to plan of care.
[2025-02-11] MEDS: Atorvastatin Calcium 80 MG TABLET PO (21:00)
[2025-02-11 23:45] LABS: Glucose, Whole Blood 225 mg/dL (60-115)
[2025-02-12] VITALS (35 sets, daily range): BP systolic 88–189; BP diastolic 49–65; PULSE 64–105; RESP 14–29; TEMP 34.8–38; O2SAT 92–99; BMI 17.8
[2025-02-12] MEDS: hydrALAZINE HCl 20 MG/ML VIAL 10 MG IVPUSH (03:38)
[2025-02-12] MEDS: Piperacillin Sodium/Tazobactam 2.25 GM in 0.9 % Sodium Chloride 50 ML IV (05:02)
[2025-02-12 05:09] LABS: VBG Base Excess -1.6 mmol/L; VBG HCO3 19 mmol/L (22-26); VBG pCO2 23 mmHg; VBG pH 7.53 (7.32-7.43); VBG pO2 40 mmHg
[2025-02-12 05:12] LABS: Venous Blood Gas Refer to POC result
[2025-02-12 05:30] LABS: MANUAL DIFF FLAG NO
[2025-02-12 05:33] LABS: Basophils Percent Auto 0.4 % (0-2); Eosinophils Absolute Auto 0.5 X10*3/uL (0.0-0.4); Eosinophils Percent Auto 5.5 % (0-4); Hematocrit 24.7 % (37.0-47.0); Hemoglobin 8.2 g/dl (12.0-16.0); Imm Gran Abs Auto 0.05 X10*3/uL (0.00-0.03); Imm Gran Pct Auto 0.5 % (0.0-0.4); Lymphocytes Absolute Auto 0.4 X10*3/uL (1.2-4.9); Lymphocytes Percent Auto 4.5 % (20-40); Mean Corpuscular HGB Conc 33.2 g/dl (31.0-35.0); Mean Corpuscular Volume 90.5 fL (80.0-98.0); Mean Platelet Volume 10.7 fL (9.4-12.3); Monocytes Absolute Auto 0.5 X10*3/uL (0.1-1.2); Monocytes Percent Auto 5.5 % (2-11); Neutrophils Absolute Auto 8.3 x10*3/uL (2.0-8.3); Neutrophils Percent Auto 83.6 % (45-73); Platelet Count 219 X10*3/uL (160-400); Red Blood Count 2.73 X10*6/uL (4.20-5.50); Red Cell Distribution Width 14.4 % (11.0-16.0); White Blood Count 9.9 X10*3/uL (4.8-10.8)
[2025-02-12] MEDS: Pantoprazole Sodium 40 MG/10 ML VIAL IVPUSH (05:41)
[2025-02-12] MEDS: Levothyroxine Sodium 100 MCG/5 ML VIAL 75 MCG IVPUSH (05:42)
[2025-02-12 05:52] LABS: Albumin Level 3.2 g/dL (3.5-5.0); Anion Gap 20 (12-20); Blood Urea Nitrogen 84 mg/dL (9-16); Calcium 8.5 mg/dL (8.4-10.2); Carbon Dioxide 18 mmol/L (22-29); Chloride 104 mmol/L (96-108); Creatinine Clr Calc Pharmacy 8.1; Estimated Glomerular Filt Rate 9; Glucose Random 208 mg/dL (60-115); Magnesium 2.1 mg/dL (1.6-2.6); Phosphorus 7.7 mg/dL (2.7-4.5); Potassium 4.8 mmol/L (3.3-5.1); Sodium 137 mmol/L (135-145)
[2025-02-12] MEDS: Insulin Lispro 100 UNIT/ML 3 ML VIAL SUBCUT ×3 (06:15→18:13)
--- NOTE | 2025-02-12 07:20 | PC.NURSE ---
Critical Care Nursing Note? Neuro:? opens eyes to verbal stimuli, intermittently tracks movement/voice, +cough/ gag,? Cardiac: sinus rhythm Resp: intubated,? ACVC settings overnight GI/: ? lemus; tube feedings Endocrine: sliding scale? Integumentary/Musculoskeletal: buttocks redness? ID:? zosyn? Central Lines:Ryan Events: n/a Plan moving forward: PSV trials, dialysis 02/12
[2025-02-12] MEDS: Chlorhexidine Gluc Oral Rinse 15 ML MOUTHWASH BUCCAL ×3 (08:13→20:51)
[2025-02-12] MEDS: hydrALAZINE HCl 50 MG TABLET PO ×3 (08:14→20:51)
[2025-02-12] MEDS: cloNIDine HCL 0.1 MG TABLET PO ×2 (08:14→20:51)
[2025-02-12] MEDS: Isosorbide Dinitrate 20 MG TABLET PO ×3 (08:14→18:13)
[2025-02-12] MEDS: Labetalol HCL 100 MG TABLET PO (08:14)
[2025-02-12] MEDS: 0.9 % Sodium Chloride Flush 3 ML SYRINGE IVFLUSH ×2 (08:14→16:17)
--- NOTE | 2025-02-12 10:16 | MHC.CLN ---
F/U DISCUSSED AT ROUNDS WITH GLUCERNA TUBE FEEDING ON BACKORDER AND CURRENTLY NOT AVAILABLE IN FACILITY PT PREVIOUSLY TOLERATING GLUCERNA AT MAX GOAL RATE 70ML/HR PROVIDED 1680KCALS (29KCALS/KG BASED ON IBW), 70G PROTEIN (1.2G/KG), 1433ML FREE WATER FROM FORMULA RECOMMEND SWITCHING FORMULA TO NEPRO AT MAX GOAL RATE 40ML/HR WITH 240ML FREE WATER FLUSHES Q 8 HRS TO PROVIDE 1728KCALS (32.6KCALS/KG BASED ON ABW), 78G PROTEIN (1.5G/KG), 1418MLTOAL WATER FROM FORMULA AND FLUSHES (26.7ML/KG) MONITOR RG, LYTES AND TF TOLERANCE
--- NOTE | 2025-02-12 10:25 | PM.CCPN ---
Subjective Subjective Date of Service: 02/12/25 Interval History: 79-year-old lady with underlying history of hypertension, hyperlipidemia, diabetes mellitus, CAD, CVA with right-sided hemiparesis, hypothyroidism, LUANA admitted on 01/19/2025 with acute hypoxic respiratory failure and alteration of mental status requiring intubation and ventilatory support. Patient treated for pulmonary edema with diuresis with significant improvement, and also empiric antibiotics for overlying pneumonia. Extubated uneventfully on 01/22/2025. However, patient with persistent encephalopathy and rising uremia started on hemodialysis 01/27/2025. Required re-intubation on 01/29/2025 secondary to pulmonary aspiration, upper GI bleed secondary to duodenal ulcer requiring embolization on 01/30/2025, and MRI brain demonstrating new left-sided infarcts. now remains significantly encephalopathic on ventilatory support despite having no sedatives. No events overnight. Critical Care Time (minutes): 60 Physical Exam Vital Signs: Vital Signs: Last Vital Signs Temp 99.5 F 02/12/25 09:00 Pulse 74 02/12/25 09:00 Resp 21 H 02/12/25 09:00 BP 149/52 H 02/12/25 09:00 Pulse Ox 98 02/12/25 09:00 O2 Del Method Mechanical Ventil ation 02/12/25 09:00 O2 Flow Rate 21 02/03/25 06:00 FiO2 21 02/12/25 09:00 BMI result Body Mass Index 17.8 Const: General: no acute distress and other ( encephalopathic) Eyes: Sclerae: sclerae normal EOM: EOMs intact bilaterally Neck: Neck: Yes no lymphadenopathy, Yes trachea midline and Yes supple Resp: Auscultation: clear to auscultation bilaterally Cardio: Rate: regular rate Rhythm: regular rhythm Heart sounds: no gallops, no murmurs and no rubs GI: Palpation (GI): Soft to palpation and Other GI palpation findings present ( Nontender) Auscultation: normal bowel sounds Extrem: General: No clubbing, No cyanosis and Yes edema ( trace bilateral) Objective Data Labs 02/12/25 05:01 02/12/25 05:01 Labs: Laboratory Results - last 24 hr 02/11/25 02/11/25 02/11/25 11:53 18:26 23:36 WBC RBC Hgb Hct MCV MCH MCHC RDW Plt Count MPV Immature Gran % (Auto) Neut % (Auto) Lymph % (Auto) [place] % (Auto) Eos % (Auto) Baso % (Auto) Lymph # (Auto) [place] # (Auto) Eos # (Auto) Baso # (Auto) Abs Immat Gran (auto) Absolute Neuts (auto) Absolute Nucleated RBC Nucleated RBC % (auto) VBG pH VBG pCO2 VBG pO2 VBG HCO3 VBG O2 Saturation VBG Base Excess Sodium Potassium Chloride Carbon Dioxide Anion Gap BUN Creatinine Estim Creat Clear Calc Estimated GFR POC Glucose 223 H 233 H 225 H Random Glucose Calcium Phosphorus Magnesium Albumin 02/12/25 02/12/25 05:01 05:06 WBC 9.9 RBC 2.73 L D Hgb 8.2 L D Hct 24.7 L MCV 90.5 MCH 30.0 MCHC 33.2 RDW 14.4 Plt Count 219 MPV 10.7 Immature Gran % (Auto) 0.5 H Neut % (Auto) 83.6 H Lymph % (Auto) 4.5 L [place] % (Auto) 5.5 Eos % (Auto) 5.5 H Baso % (Auto) 0.4 Lymph # (Auto) 0.4 L [place] # (Auto) 0.5 Eos # (Auto) 0.5 H Baso # (Auto) 0.0 Abs Immat Gran (auto) 0.05 H Absolute Neuts (auto) 8.3 Absolute Nucleated RBC 0.000 Nucleated RBC % (auto) 0.0 VBG pH 7.53 H VBG pCO2 23 VBG pO2 40 VBG HCO3 19 L VBG O2 Saturation 73.0 VBG Base Excess -1.6 Sodium 137 Potassium 4.8 Chloride 104 Carbon Dioxide 18 L Anion Gap 20 BUN 84 H Creatinine 4.73 H* Estim Creat Clear Calc 8.1 Estimated GFR 9 POC Glucose Random Glucose 208 H Calcium 8.5 Phosphorus 7.7 H Magnesium 2.1 Albumin 3.2 L Microbiology Microbiology Results: Microbiology 01/19/25 07:38 Blood - Venous Blood Culture - Final No growth after 5 days. 01/19/25 07:14 Blood - Venous Blood Culture - Final No growth after 5 days. Progress Note: A&P Assessment and plan (1) Acute combined systolic and diastolic congestive heart failure: Status: Acute (2) CAD (coronary artery disease): Status: Acute (3) HTN (hypertension): Status: Acute (4) Diabetes: Status: Acute (5) Hypothyroid: Status: Acute (6) ESRD on hemodialysis: Status: Acute (7) Cerebrovascular accident: Status: Acute (8) Dementia: Status: Acute (9) Pulmonary aspiration: Status: Acute (10) Respiratory failure: Status: Acute Plan Assessment: 79-year-old lady admitted with acute hypoxic respiratory failure requiring ventilatory support, likely secondary to acute on chronic combined systolic and diastolic congestive heart failure, improved with diuresis, extubated on 01/22/2025. Plan: Neuro: encephalopathy with new left-sided CVA on the background of prior CVA. Cardiac: Acute on chronic combined systolic and diastolic congestive heart failure. Cardiology service care appreciated. Pulmonary: acute hypoxic respiratory failure secondary to pulmonary aspiration requiring ventilatory support, continue to titrate off as tolerated. Renal: End-stage renal disease on hemodialysis. Nephrology service care appreciated. Continue to monitor renal indices and urine output. Endo: No acute issues. Underlying diabetes mellitus on subcutaneous insulin. GI: upper GI bleed secondary to duodenal ulcer requiring embolization, now resolved. ID: No acute issues Heme/Onc: acute blood loss anemia secondary to upper GI bleed, resolved. Continue to monitor hemoglobin level. Psych: No acute issues. Miscellaneous: No acute issues. Prophylaxis: ppi, compression therapy Diet: Tube feeds Critical care time spent: 60 minutes Quality Stroke Does the patient have a stroke diagnosis?: Yes Reason for No Anti-thrombotic by Day Two: N/A - Med Ordered VTE Prior VTE?: No VTE Risk Level:: Medical - moderate - high VTE Device Contraindication: N/A - Device Ordered VTE Drug Contraindication: Treatment Not Tolerated
[2025-02-12 11:41] LABS: Glucose, Whole Blood 237 mg/dL (60-115)
--- NOTE | 2025-02-12 13:09 | MHC.CM.PN ---
Pt remains on vent and HD: MRI last week confirmed + CVA: not following commands: family continues to struggle with goals of care decisions: will meet w/MD this week to review lack of clinical progress. CM to follow
--- NOTE | 2025-02-12 17:11 | PC.NURSE ---
Assumed care at 0700- pt. remains mechanically vented, off sedation. Dialysis performed at approx 1300- 2.2L removed. Family at bedside, updated by this RN. Q2 oral care and repositioning performed. Plan of care ongoing.
[2025-02-12 17:33] LABS: Glucose, Whole Blood 254 mg/dL (60-115)
[2025-02-12 20:16] LABS: Hematocrit 25.8 % (37.0-47.0); Hemoglobin 8.6 g/dl (12.0-16.0); Mean Corpuscular HGB Conc 33.3 g/dl (31.0-35.0); Mean Corpuscular Volume 89.9 fL (80.0-98.0); Mean Platelet Volume 10.8 fL (9.4-12.3); Platelet Count 244 X10*3/uL (160-400); Red Blood Count 2.87 X10*6/uL (4.20-5.50); Red Cell Distribution Width 14.4 % (11.0-16.0); White Blood Count 9.1 X10*3/uL (4.8-10.8)
[2025-02-12 20:25] LABS: Anion Gap 16 (12-20); Blood Urea Nitrogen 50 mg/dL (9-16); Calcium 8.1 mg/dL (8.4-10.2); Carbon Dioxide 22 mmol/L (22-29); Chloride 102 mmol/L (96-108); Creatinine Clr Calc Pharmacy 12.1; Estimated Glomerular Filt Rate 14; Glucose Fasting 293 mg/dL (60-99); Magnesium 1.9 mg/dL (1.6-2.6); Phosphorus 5.2 mg/dL (2.7-4.5); Potassium 4.4 mmol/L (3.3-5.1); Sodium 136 mmol/L (135-145)
[2025-02-12] MEDS: Atorvastatin Calcium 80 MG TABLET PO (20:51)
[2025-02-13] VITALS (33 sets, daily range): BP systolic 129–179; BP diastolic 48–69; PULSE 64–83; RESP 15–25; TEMP 34.5–37.4; O2SAT 95–99; BMI 17.4
[2025-02-13] MEDS: 0.9 % Sodium Chloride Flush 3 ML SYRINGE IVFLUSH ×4 (00:06→20:06)
[2025-02-13] MEDS: Insulin Lispro 100 UNIT/ML 3 ML VIAL SUBCUT ×4 (00:06→18:15)
[2025-02-13 00:08] LABS: Glucose, Whole Blood 221 mg/dL (60-115)
[2025-02-13] MEDS: Pantoprazole Sodium 40 MG/10 ML VIAL IVPUSH (05:41)
[2025-02-13] MEDS: Levothyroxine Sodium 100 MCG/5 ML VIAL 75 MCG IVPUSH (05:42)
[2025-02-13 05:50] LABS: MANUAL DIFF FLAG NO
[2025-02-13 05:53] LABS: VBG Base Excess 3.4 mmol/L; VBG HCO3 25 mmol/L (22-26); VBG pCO2 28 mmHg; VBG pH 7.55 (7.32-7.43); VBG pO2 42 mmHg
[2025-02-13 05:55] LABS: Basophils Percent Auto 0.4 % (0-2); Eosinophils Absolute Auto 0.4 X10*3/uL (0.0-0.4); Eosinophils Percent Auto 4.5 % (0-4); Hematocrit 24.9 % (37.0-47.0); Hemoglobin 8.2 g/dl (12.0-16.0); Imm Gran Abs Auto 0.04 X10*3/uL (0.00-0.03); Imm Gran Pct Auto 0.5 % (0.0-0.4); Lymphocytes Absolute Auto 0.5 X10*3/uL (1.2-4.9); Lymphocytes Percent Auto 5.9 % (20-40); Mean Corpuscular HGB Conc 32.9 g/dl (31.0-35.0); Mean Corpuscular Hemoglobin 29.7 pg (27.0-33.0); Mean Corpuscular Volume 90.2 fL (80.0-98.0); Mean Platelet Volume 10.8 fL (9.4-12.3); Monocytes Absolute Auto 0.6 X10*3/uL (0.1-1.2); Monocytes Percent Auto 7.9 % (2-11); Neutrophils Absolute Auto 6.3 x10*3/uL (2.0-8.3); Neutrophils Percent Auto 80.8 % (45-73); Platelet Count 215 X10*3/uL (160-400); Red Blood Count 2.76 X10*6/uL (4.20-5.50); Red Cell Distribution Width 14.3 % (11.0-16.0); White Blood Count 7.8 X10*3/uL (4.8-10.8)
[2025-02-13 06:06] LABS: Venous Blood Gas Refer to POC result
[2025-02-13 06:14] LABS: Alanine Aminotransferase 297 U/L (0-31); Albumin Level 3.2 g/dL (3.5-5.0); Anion Gap 18 (12-20); Aspartate Amino Transferase 191 U/L (5-31); Bilirubin Total 0.7 mg/dL (0.0-1.0); Blood Urea Nitrogen 64 mg/dL (9-16); Calcium 8.5 mg/dL (8.4-10.2); Carbon Dioxide 22 mmol/L (22-29); Chloride 102 mmol/L (96-108); Creatinine Clr Calc Pharmacy 9.8; Estimated Glomerular Filt Rate 11; Glucose Random 237 mg/dL (60-115); Phosphorus 5.9 mg/dL (2.7-4.5); Potassium 4.2 mmol/L (3.3-5.1); Sodium 138 mmol/L (135-145); Total Protein 6.7 g/dL (6.5-8.0)
[2025-02-13 06:22] LABS: Alkaline Phosphatase 149 U/L (39-117)
[2025-02-13] MEDS: Albumin Human 25 % 100 ML IV ×2 (08:41→13:44)
[2025-02-13] MEDS: Labetalol HCL 100 MG TABLET PO (08:44)
[2025-02-13] MEDS: Chlorhexidine Gluc Oral Rinse 15 ML MOUTHWASH BUCCAL ×3 (08:44→20:06)
[2025-02-13] MEDS: hydrALAZINE HCl 50 MG TABLET PO ×4 (08:44→20:06)
[2025-02-13] MEDS: Isosorbide Dinitrate 20 MG TABLET PO ×3 (08:44→17:56)
[2025-02-13] MEDS: cloNIDine HCL 0.1 MG TABLET PO ×2 (08:44→20:06)
--- NOTE | 2025-02-13 09:37 | PM.CCPN ---
Subjective Subjective Date of Service: 02/13/25 Interval History: 79-year-old lady with underlying history of hypertension, hyperlipidemia, diabetes mellitus, CAD, CVA with right-sided hemiparesis, hypothyroidism, LUANA admitted on 01/19/2025 with acute hypoxic respiratory failure and alteration of mental status requiring intubation and ventilatory support. Patient treated for pulmonary edema with diuresis with significant improvement, and also empiric antibiotics for overlying pneumonia. Extubated uneventfully on 01/22/2025. However, patient with persistent encephalopathy and rising uremia started on hemodialysis 01/27/2025. Required re-intubation on 01/29/2025 secondary to pulmonary aspiration, upper GI bleed secondary to duodenal ulcer requiring embolization on 01/30/2025, and MRI brain demonstrating new left-sided infarcts. now remains significantly encephalopathic on ventilatory support despite having no sedatives. No events overnight. Critical Care Time (minutes): 45 Physical Exam Vital Signs: Vital Signs: Last Vital Signs Temp 98.8 F 02/13/25 08:00 Pulse 79 02/13/25 09:00 Resp 15 02/13/25 09:00 BP 153/59 H 02/13/25 09:00 Pulse Ox 99 02/13/25 09:00 O2 Del Method Mechanical Ventil ation 02/13/25 09:00 O2 Flow Rate 21 02/03/25 06:00 FiO2 21 02/13/25 09:00 BMI result Body Mass Index 17.4 Const: General: no acute distress and lethargic Orientation/consciousness: lethargic Eyes: Sclerae: sclerae normal Neck: Neck: Yes no lymphadenopathy, Yes trachea midline and Yes supple Resp: Auscultation: clear to auscultation bilaterally Cardio: Rate: regular rate Rhythm: regular rhythm Heart sounds: no gallops, no murmurs and no rubs GI: Palpation (GI): Soft to palpation and Other GI palpation findings present ( Nontender) Auscultation: normal bowel sounds Extrem: General: No clubbing, No cyanosis and Yes edema (Trace bilateral) Objective Data Labs 02/13/25 05:37 02/13/25 05:37 Labs: Laboratory Results - last 24 hr 02/12/25 02/12/25 02/12/25 11:12 17:26 19:54 WBC 9.1 RBC 2.87 L Hgb 8.6 L Hct 25.8 L MCV 89.9 MCH 30.0 MCHC 33.3 RDW 14.4 Plt Count 244 MPV 10.8 Immature Gran % (Auto) Neut % (Auto) Lymph % (Auto) [place] % (Auto) Eos % (Auto) Baso % (Auto) Lymph # (Auto) [place] # (Auto) Eos # (Auto) Baso # (Auto) Abs Immat Gran (auto) Absolute Neuts (auto) Absolute Nucleated RBC 0.000 Nucleated RBC % (auto) 0.0 VBG pH VBG pCO2 VBG pO2 VBG HCO3 VBG O2 Saturation VBG Base Excess Sodium 136 Potassium 4.4 Chloride 102 Carbon Dioxide 22 Anion Gap 16 BUN 50 H Creatinine 3.15 H Estim Creat Clear Calc 12.1 Estimated GFR 14 POC Glucose 237 H 254 H Random Glucose Fasting Glucose 293 H Calcium 8.1 L Phosphorus 5.2 H Magnesium 1.9 Total Bilirubin AST ALT Alkaline Phosphatase Total Protein Albumin 02/12/25 02/13/25 02/13/25 23:58 05:37 05:48 WBC 7.8 RBC 2.76 L Hgb 8.2 L Hct 24.9 L MCV 90.2 MCH 29.7 MCHC 32.9 RDW 14.3 Plt Count 215 MPV 10.8 Immature Gran % (Auto) 0.5 H Neut % (Auto) 80.8 H Lymph % (Auto) 5.9 L [place] % (Auto) 7.9 Eos % (Auto) 4.5 H Baso % (Auto) 0.4 Lymph # (Auto) 0.5 L [place] # (Auto) 0.6 Eos # (Auto) 0.4 Baso # (Auto) 0.0 Abs Immat Gran (auto) 0.04 H Absolute Neuts (auto) 6.3 Absolute Nucleated RBC 0.000 Nucleated RBC % (auto) 0.0 VBG pH 7.55 H VBG pCO2 28 VBG pO2 42 VBG HCO3 25 VBG O2 Saturation 75.0 VBG Base Excess 3.4 Sodium 138 Potassium 4.2 Chloride 102 Carbon Dioxide 22 Anion Gap 18 BUN 64 H Creatinine 3.79 H Estim Creat Clear Calc 9.8 Estimated GFR 11 POC Glucose 221 H Random Glucose 237 H Fasting Glucose Calcium 8.5 Phosphorus 5.9 H Magnesium 2.0 Total Bilirubin 0.7 AST 191 H ALT 297 H Alkaline Phosphatase 149 H Total Protein 6.7 Albumin 3.2 L Microbiology Microbiology Results: Microbiology 01/19/25 07:38 Blood - Venous Blood Culture - Final No growth after 5 days. 01/19/25 07:14 Blood - Venous Blood Culture - Final No growth after 5 days. Progress Note: A&P Assessment and plan (1) HTN (hypertension): Status: Acute (2) Acute combined systolic and diastolic congestive heart failure: Status: Acute (3) CAD (coronary artery disease): Status: Acute (4) Diabetes: Status: Acute (5) Hypothyroid: Status: Acute (6) Duodenal ulcer: Status: Acute (7) ESRD on hemodialysis: Status: Acute (8) Cerebrovascular accident: Status: Acute (9) Respiratory failure: Status: Acute (10) Pulmonary aspiration: Status: Acute Plan Assessment: 79-year-old lady admitted with acute hypoxic respiratory failure requiring ventilatory support, likely secondary to acute on chronic combined systolic and diastolic congestive heart failure, improved with diuresis, extubated on 01/22/2025. Plan: Neuro: encephalopathy with new left-sided CVA on the background of prior CVA. Cardiac: Acute on chronic combined systolic and diastolic congestive heart failure. Cardiology service care appreciated. Pulmonary: Acute hypoxic respiratory failure secondary to pulmonary aspiration requiring ventilatory support, continue to titrate off as tolerated. Renal: End-stage renal disease on hemodialysis. Nephrology service care appreciated. Continue to monitor renal indices and urine output. Endo: No acute issues. Underlying diabetes mellitus on subcutaneous insulin. GI: Upper GI bleed secondary to duodenal ulcer requiring embolization, now resolved. ID: No acute issues Heme/Onc: acute blood loss anemia secondary to upper GI bleed, resolved. Continue to monitor hemoglobin level. Psych: No acute issues. Miscellaneous: No acute issues. Prophylaxis: ppi, compression therapy Diet: Tube feeds Critical care time spent: 45 minutes Quality Stroke Does the patient have a stroke diagnosis?: Yes Reason for No Anti-thrombotic by Day Two: N/A - Med Ordered VTE Prior VTE?: No VTE Risk Level:: Medical - moderate - high VTE Device Contraindication: N/A - Device Ordered VTE Drug Contraindication: Treatment Not Tolerated
--- NOTE | 2025-02-13 11:24 | P.PNNP_ITS ---
Subjective Subjective Date of Service: 02/13/25 Interval history: Events noted. Had dialysis yesterday. Remains intubated. Discussed with ICU attending. Physical Exam 2 Vital Signs: Vital Signs: Last Vital Signs Temp 98.8 F 02/13/25 08:00 Pulse 70 02/13/25 11:00 Resp 18 02/13/25 11:00 BP 152/53 H 02/13/25 11:00 Pulse Ox 98 02/13/25 11:00 O2 Del Method Mechanical Ventil ation 02/13/25 11:00 O2 Flow Rate 21 02/03/25 06:00 FiO2 21 02/13/25 11:00 BMI result Body Mass Index 17.4 Const: General: no acute distress and ill appearing Eyes: EOM: EOMs intact bilaterally Neck: Neck: Yes supple Resp: Auscultation: clear to auscultation bilaterally and diminished lung sounds Cardio: Palpation: no palpable S3 Rate: regular rate Heart sounds: no rubs GI: Palpation (GI): Soft to palpation Auscultation: normal bowel sounds Neuro: Other: Intubated & sedated General: moves all extremities Motor exam (neuro): no asterixis Objective Data Labs 02/13/25 05:37 02/13/25 05:37 Labs: Laboratory Results - last 24 hr 02/12/25 02/12/25 02/12/25 11:12 17:26 19:54 WBC 9.1 RBC 2.87 L Hgb 8.6 L Hct 25.8 L MCV 89.9 MCH 30.0 MCHC 33.3 RDW 14.4 Plt Count 244 MPV 10.8 Immature Gran % (Auto) Neut % (Auto) Lymph % (Auto) [place] % (Auto) Eos % (Auto) Baso % (Auto) Lymph # (Auto) [place] # (Auto) Eos # (Auto) Baso # (Auto) Abs Immat Gran (auto) Absolute Neuts (auto) Absolute Nucleated RBC 0.000 Nucleated RBC % (auto) 0.0 VBG pH VBG pCO2 VBG pO2 VBG HCO3 VBG O2 Saturation VBG Base Excess Sodium 136 Potassium 4.4 Chloride 102 Carbon Dioxide 22 Anion Gap 16 BUN 50 H Creatinine 3.15 H Estim Creat Clear Calc 12.1 Estimated GFR 14 POC Glucose 237 H 254 H Random Glucose Fasting Glucose 293 H Calcium 8.1 L Phosphorus 5.2 H Magnesium 1.9 Total Bilirubin AST ALT Alkaline Phosphatase Total Protein Albumin 02/12/25 02/13/25 02/13/25 23:58 05:37 05:48 WBC 7.8 RBC 2.76 L Hgb 8.2 L Hct 24.9 L MCV 90.2 MCH 29.7 MCHC 32.9 RDW 14.3 Plt Count 215 MPV 10.8 Immature Gran % (Auto) 0.5 H Neut % (Auto) 80.8 H Lymph % (Auto) 5.9 L [place] % (Auto) 7.9 Eos % (Auto) 4.5 H Baso % (Auto) 0.4 Lymph # (Auto) 0.5 L [place] # (Auto) 0.6 Eos # (Auto) 0.4 Baso # (Auto) 0.0 Abs Immat Gran (auto) 0.04 H Absolute Neuts (auto) 6.3 Absolute Nucleated RBC 0.000 Nucleated RBC % (auto) 0.0 VBG pH 7.55 H VBG pCO2 28 VBG pO2 42 VBG HCO3 25 VBG O2 Saturation 75.0 VBG Base Excess 3.4 Sodium 138 Potassium 4.2 Chloride 102 Carbon Dioxide 22 Anion Gap 18 BUN 64 H Creatinine 3.79 H Estim Creat Clear Calc 9.8 Estimated GFR 11 POC Glucose 221 H Random Glucose 237 H Fasting Glucose Calcium 8.5 Phosphorus 5.9 H Magnesium 2.0 Total Bilirubin 0.7 AST 191 H ALT 297 H Alkaline Phosphatase 149 H Total Protein 6.7 Albumin 3.2 L Microbiology Microbiology Results: Microbiology 01/19/25 07:38 Blood - Venous Blood Culture - Final No growth after 5 days. 01/19/25 07:14 Blood - Venous Blood Culture - Final No growth after 5 days. Procedures Date of Service Date of Service: 02/13/25 Assessment & Plan Assessment and plan (1) Acute kidney injury superimposed on CKD: Status: Acute Plan 79-year-old woman with acute kidney injury superimposed on chronic kidney disease due to tubular injury Urine sediments bland therefore glomerular nephritis or interstitial disease seem less likely. Plan is to proceed with hemodialysis tomorrow followed by extubation. Based on her overall clinical condition family will decide if they want to proceed dialysis. Time Spent With Patient Time: Total time managing care of this patient today ____ minutes. Progress Note: Quality Stroke Does the patient have a stroke diagnosis?: Yes Reason for No Anti-thrombotic by Day Two: N/A - Med Ordered
[2025-02-13 11:31] LABS: Glucose, Whole Blood 243 mg/dL (60-115)
--- NOTE | 2025-02-13 13:34 | MHC.CM.PN ---
Pt intubated and receiving HD: no improvement in cognition: MRI notes + Left sided infarct. Family has decided not to trach patient or reintubate but no other goals of care have been established. Pt has been referred to Acute and SNF. Clinical updates will be sent once pt's care plan is better known. CM to follow
[2025-02-13 18:00] LABS: Glucose, Whole Blood 215 mg/dL (60-115)
[2025-02-13] MEDS: Atorvastatin Calcium 80 MG TABLET PO (20:06)
[2025-02-13] MEDS: HYDROmorphone HCl 1 MG/ML SYRINGE IVPUSH (20:31)
[2025-02-14] VITALS (34 sets, daily range): BP systolic 92–193; BP diastolic 44–78; PULSE 69–92; RESP 15–32; TEMP 34.5–37.1; O2SAT 92–100; BMI 17.1
[2025-02-14 00:12] LABS: Glucose, Whole Blood 165 mg/dL (60-115)
[2025-02-14] MEDS: Insulin Lispro 100 UNIT/ML 3 ML VIAL SUBCUT ×5 (00:16→23:27)
[2025-02-14] MEDS: Levothyroxine Sodium 100 MCG/5 ML VIAL 75 MCG IVPUSH (05:01)
[2025-02-14] MEDS: HYDROmorphone HCl 1 MG/ML SYRINGE IVPUSH (05:01)
[2025-02-14] MEDS: Pantoprazole Sodium 40 MG/10 ML VIAL IVPUSH (05:02)
[2025-02-14 05:36] LABS: VBG Base Excess 7.6 mmol/L; VBG HCO3 30 mmol/L (22-26); VBG pCO2 37 mmHg; VBG pH 7.51 (7.32-7.43); VBG pO2 44 mmHg
[2025-02-14 05:43] LABS: Venous Blood Gas Refer to POC result
[2025-02-14 06:00] LABS: MANUAL DIFF FLAG NO
[2025-02-14 06:02] LABS: Basophils Percent Auto 0.3 % (0-2); Eosinophils Absolute Auto 0.5 X10*3/uL (0.0-0.4); Hemoglobin 8.4 g/dl (12.0-16.0); Imm Gran Abs Auto 0.07 X10*3/uL (0.00-0.03); Imm Gran Pct Auto 0.7 % (0.0-0.4); Lymphocytes Absolute Auto 0.4 X10*3/uL (1.2-4.9); Lymphocytes Percent Auto 3.9 % (20-40); Mean Corpuscular HGB Conc 33.6 g/dl (31.0-35.0); Mean Corpuscular Hemoglobin 30.1 pg (27.0-33.0); Mean Corpuscular Volume 89.6 fL (80.0-98.0); Mean Platelet Volume 10.9 fL (9.4-12.3); Monocytes Absolute Auto 0.5 X10*3/uL (0.1-1.2); Monocytes Percent Auto 5.5 % (2-11); Neutrophils Absolute Auto 8.3 x10*3/uL (2.0-8.3); Neutrophils Percent Auto 84.6 % (45-73); Platelet Count 226 X10*3/uL (160-400); Red Blood Count 2.79 X10*6/uL (4.20-5.50); Red Cell Distribution Width 13.7 % (11.0-16.0); White Blood Count 9.8 X10*3/uL (4.8-10.8)
[2025-02-14 06:11] LABS: Glucose, Whole Blood 157 mg/dL (60-115)
--- NOTE | 2025-02-14 06:27 | PC.NURSE ---
Assumed care 1900, pt intubated and drowsy. On ACVC settings - see vent assessment. PRN Dilaudid given?with good effect x2 - see JAN. HD started?@ 0400.
[2025-02-14 06:29] LABS: Albumin Level 3.9 g/dL (3.5-5.0); Anion Gap 16 (12-20); Blood Urea Nitrogen 36 mg/dL (9-16); Calcium 9.3 mg/dL (8.4-10.2); Carbon Dioxide 27 mmol/L (22-29); Chloride 105 mmol/L (96-108); Creatinine Clr Calc Pharmacy 17.2; Estimated Glomerular Filt Rate 22; Glucose Random 133 mg/dL (60-115); Phosphorus 3.1 mg/dL (2.7-4.5); Sodium 145 mmol/L (135-145)
[2025-02-14] MEDS: Potassium Chloride Packet 20 MEQ PACKET 40 MEQ OG-TUBE (07:54)
[2025-02-14] MEDS: cloNIDine HCL 0.1 MG TABLET PO ×2 (07:54→21:10)
[2025-02-14] MEDS: Chlorhexidine Gluc Oral Rinse 15 ML MOUTHWASH BUCCAL ×2 (07:54→16:01)
[2025-02-14] MEDS: 0.9 % Sodium Chloride Flush 3 ML SYRINGE IVFLUSH ×3 (07:54→23:27)
[2025-02-14] MEDS: Labetalol HCL 100 MG TABLET PO (07:55)
[2025-02-14] MEDS: hydrALAZINE HCl 50 MG TABLET PO ×4 (07:55→21:10)
[2025-02-14] MEDS: Isosorbide Dinitrate 20 MG TABLET PO ×3 (07:55→17:32)
--- NOTE | 2025-02-14 08:44 | P.PNCC_ITS ---
Subjective Subjective Date of Service: 02/14/25 Interval History: 79-year-old lady with underlying history of hypertension, hyperlipidemia, diabetes mellitus, CAD, CVA with right-sided hemiparesis, hypothyroidism, LUANA admitted on 01/19/2025 with acute hypoxic respiratory failure and alteration of mental status requiring intubation and ventilatory support. Patient treated for pulmonary edema with diuresis with significant improvement, and also empiric antibiotics for overlying pneumonia. Extubated uneventfully on 01/22/2025. However, patient with persistent encephalopathy and rising uremia started on hemodialysis 01/27/2025. Required re-intubation on 01/29/2025 secondary to pulmonary aspiration, upper GI bleed secondary to duodenal ulcer requiring embolization on 01/30/2025, and MRI brain demonstrating new left-sided infarcts. now remains significantly encephalopathic on ventilatory support despite having no sedatives. No events overnight. Critical Care Time (minutes): 60 Physical Exam 2 Vital Signs: Vital Signs: Last Vital Signs Temp 98.4 F 02/14/25 08:00 Pulse 76 02/14/25 08:00 Resp 15 02/14/25 08:00 BP 133/56 L 02/14/25 08:00 Pulse Ox 98 02/14/25 08:00 O2 Del Method Mechanical Ventil ation 02/14/25 08:00 O2 Flow Rate 21 02/03/25 06:00 FiO2 21 02/14/25 08:04 BMI result Body Mass Index 17.1 Const: General: no acute distress and lethargic Orientation/consciousness: lethargic Eyes: Sclerae: sclerae normal Neck: Neck: Yes no lymphadenopathy, Yes trachea midline and Yes supple Resp: Auscultation: clear to auscultation bilaterally Cardio: Rate: regular rate Rhythm: regular rhythm Heart sounds: no gallops, no murmurs and no rubs GI: Palpation (GI): Soft to palpation and Other GI palpation findings present ( Nontender) Auscultation: normal bowel sounds Extrem: General: Yes no pedal edema, No clubbing and No cyanosis Objective Data Labs 02/14/25 05:20 02/14/25 05:20 Labs: Laboratory Results - last 24 hr 02/13/25 02/13/25 02/13/25 11:25 17:51 23:57 WBC RBC Hgb Hct MCV MCH MCHC RDW Plt Count MPV Immature Gran % (Auto) Neut % (Auto) Lymph % (Auto) [place] % (Auto) Eos % (Auto) Baso % (Auto) Lymph # (Auto) [place] # (Auto) Eos # (Auto) Baso # (Auto) Abs Immat Gran (auto) Absolute Neuts (auto) Absolute Nucleated RBC Nucleated RBC % (auto) VBG pH VBG pCO2 VBG pO2 VBG HCO3 VBG O2 Saturation VBG Base Excess Sodium Potassium Chloride Carbon Dioxide Anion Gap BUN Creatinine Estim Creat Clear Calc Estimated GFR POC Glucose 243 H 215 H 165 H Random Glucose Calcium Phosphorus Magnesium Albumin 02/14/25 02/14/25 02/14/25 05:20 05:31 05:51 WBC 9.8 RBC 2.79 L Hgb 8.4 L Hct 25.0 L MCV 89.6 MCH 30.1 MCHC 33.6 RDW 13.7 Plt Count 226 MPV 10.9 Immature Gran % (Auto) 0.7 H Neut % (Auto) 84.6 H Lymph % (Auto) 3.9 L [place] % (Auto) 5.5 Eos % (Auto) 5.0 H Baso % (Auto) 0.3 Lymph # (Auto) 0.4 L [place] # (Auto) 0.5 Eos # (Auto) 0.5 H Baso # (Auto) 0.0 Abs Immat Gran (auto) 0.07 H Absolute Neuts (auto) 8.3 Absolute Nucleated RBC 0.000 Nucleated RBC % (auto) 0.0 VBG pH 7.51 H VBG pCO2 37 VBG pO2 44 VBG HCO3 30 H VBG O2 Saturation 73.0 VBG Base Excess 7.6 Sodium 145 Potassium 3.0 L D Chloride 105 Carbon Dioxide 27 Anion Gap 16 BUN 36 H Creatinine 2.13 H Estim Creat Clear Calc 17.2 Estimated GFR 22 POC Glucose 157 H Random Glucose 133 H Calcium 9.3 D Phosphorus 3.1 Magnesium 2.0 Albumin 3.9 Microbiology Microbiology Results: Microbiology 01/19/25 07:38 Blood - Venous Blood Culture - Final No growth after 5 days. 01/19/25 07:14 Blood - Venous Blood Culture - Final No growth after 5 days. Progress Note: A&P Assessment and plan (1) Acute combined systolic and diastolic congestive heart failure: Status: Acute (2) CAD (coronary artery disease): Status: Acute (3) Diabetes: Status: Acute (4) Hypothyroid: Status: Acute (5) Duodenal ulcer: Status: Acute (6) ESRD on hemodialysis: Status: Acute (7) Cerebrovascular accident: Status: Acute (8) Dementia: Status: Acute (9) Pulmonary aspiration: Status: Acute Plan Assessment: 79-year-old lady admitted with acute hypoxic respiratory failure requiring ventilatory support, likely secondary to acute on chronic combined systolic and diastolic congestive heart failure, improved with diuresis, extubated on 01/22/2025. Plan: Neuro: encephalopathy with new left-sided CVA on the background of prior CVA. Cardiac: Acute on chronic combined systolic and diastolic congestive heart failure. Cardiology service care appreciated. Pulmonary: Acute hypoxic respiratory failure secondary to pulmonary aspiration requiring ventilatory support, continue to titrate off as tolerated. Renal: End-stage renal disease on hemodialysis. Nephrology service care appreciated. Continue to monitor renal indices and urine output. Endo: No acute issues. Underlying diabetes mellitus on subcutaneous insulin. GI: Upper GI bleed secondary to duodenal ulcer requiring embolization, now resolved. ID: No acute issues Heme/Onc: acute blood loss anemia secondary to upper GI bleed, resolved. Continue to monitor hemoglobin level. Psych: No acute issues. Miscellaneous: Discussions of goals of healthcare ongoing with healthcare proxy with the plan for extubation later today and subsequent DNI status with transition to palliation if developing respiratory distress. Prophylaxis: ppi, compression therapy Diet: Tube feeds Critical care time spent: 60 minutes Quality Stroke Does the patient have a stroke diagnosis?: Yes Reason for No Anti-thrombotic by Day Two: N/A - Med Ordered VTE Prior VTE?: No VTE Risk Level:: Medical - moderate - high VTE Device Contraindication: N/A - Device Ordered VTE Drug Contraindication: Treatment Not Tolerated
--- NOTE | 2025-02-14 10:57 | MHC.CLN ---
F/U DISCUSSED AT ROUNDS WITH CONTINUE NEPRO AT MAX GOAL RATE 40ML/HR WITH 240ML FREE WATER FLUSHES Q 8 HRS PROVIDES 1728KCALS (32.6KCALS/KG BASED ON ABW), 78G PROTEIN (1.5G/KG), 1418 ML TOTAL WATER FROM FORMULA AND FLUSHES (26.7ML/KG) MONITOR LYTES AND TF TOLERANCE
[2025-02-14 12:03] LABS: Glucose, Whole Blood 258 mg/dL (60-115)
--- NOTE | 2025-02-14 12:48 | MHC.CM.PN ---
Pt remains on vent support and HD. Family will be in later to extubate pt: they are opting to not reintubate should she fail. Pt had been referred to acute rehab and SNF but updates have been on hold d/t fragile pt condition and families difficulty deciding on goals of care. If pt able to maintain airway on 02/15, clinical updates will be remitted for possible placement.
--- NOTE | 2025-02-14 13:11 | P.PNNP_ITS ---
Subjective Subjective Date of Service: 02/14/25 Interval history: No events overnight. Had HD this AM Physical Exam 2 Vital Signs: Vital Signs: Last Vital Signs Temp 98.4 F 02/14/25 08:00 Pulse 72 02/14/25 12:00 Resp 18 02/14/25 12:00 BP 147/47 H 02/14/25 12:49 Pulse Ox 98 02/14/25 12:00 O2 Del Method Mechanical Ventil ation 02/14/25 12:00 O2 Flow Rate 21 02/03/25 06:00 FiO2 21 02/14/25 12:00 BMI result Body Mass Index 17.1 Const: General: no acute distress Resp: Auscultation: diminished lung sounds Cardio: Rate: regular rate GI: Palpation (GI): Soft to palpation Objective Data Labs 02/14/25 05:20 02/14/25 05:20 Labs: Laboratory Results - last 24 hr 02/13/25 02/13/25 02/14/25 17:51 23:57 05:20 WBC 9.8 RBC 2.79 L Hgb 8.4 L Hct 25.0 L MCV 89.6 MCH 30.1 MCHC 33.6 RDW 13.7 Plt Count 226 MPV 10.9 Immature Gran % (Auto) 0.7 H Neut % (Auto) 84.6 H Lymph % (Auto) 3.9 L [place] % (Auto) 5.5 Eos % (Auto) 5.0 H Baso % (Auto) 0.3 Lymph # (Auto) 0.4 L [place] # (Auto) 0.5 Eos # (Auto) 0.5 H Baso # (Auto) 0.0 Abs Immat Gran (auto) 0.07 H Absolute Neuts (auto) 8.3 Absolute Nucleated RBC 0.000 Nucleated RBC % (auto) 0.0 VBG pH VBG pCO2 VBG pO2 VBG HCO3 VBG O2 Saturation VBG Base Excess Sodium 145 Potassium 3.0 L D Chloride 105 Carbon Dioxide 27 Anion Gap 16 BUN 36 H Creatinine 2.13 H Estim Creat Clear Calc 17.2 Estimated GFR 22 POC Glucose 215 H 165 H Random Glucose 133 H Calcium 9.3 D Phosphorus 3.1 Magnesium 2.0 Albumin 3.9 02/14/25 02/14/25 02/14/25 05:31 05:51 11:47 WBC RBC Hgb Hct MCV MCH MCHC RDW Plt Count MPV Immature Gran % (Auto) Neut % (Auto) Lymph % (Auto) [place] % (Auto) Eos % (Auto) Baso % (Auto) Lymph # (Auto) [place] # (Auto) Eos # (Auto) Baso # (Auto) Abs Immat Gran (auto) Absolute Neuts (auto) Absolute Nucleated RBC Nucleated RBC % (auto) VBG pH 7.51 H VBG pCO2 37 VBG pO2 44 VBG HCO3 30 H VBG O2 Saturation 73.0 VBG Base Excess 7.6 Sodium Potassium Chloride Carbon Dioxide Anion Gap BUN Creatinine Estim Creat Clear Calc Estimated GFR POC Glucose 157 H 258 H Random Glucose Calcium Phosphorus Magnesium Albumin Microbiology Microbiology Results: Microbiology 01/19/25 07:38 Blood - Venous Blood Culture - Final No growth after 5 days. 01/19/25 07:14 Blood - Venous Blood Culture - Final No growth after 5 days. Procedures Date of Service Date of Service: 02/14/25 Assessment & Plan Assessment and plan (1) Acute kidney injury superimposed on CKD: Status: Acute Plan 79-year-old woman with acute kidney injury superimposed on chronic kidney disease due to tubular injury Urine sediments bland therefore glomerular nephritis or interstitial disease seem less likely.Got HD today Continue rest of current medication regimen ; Labs AM; Shall F/U closely Time Spent With Patient Time: . Progress Note: Quality Stroke Does the patient have a stroke diagnosis?: Yes Reason for No Anti-thrombotic by Day Two: N/A - Med Ordered
[2025-02-14 17:28] LABS: Glucose, Whole Blood 214 mg/dL (60-115)
--- NOTE | 2025-02-14 18:10 | PC.NURSE ---
Assumed care at 0700. Dialysis session ended at approx 0730 with 1.5L removed. Pt switched to PSV of 10/5 with fio2 of 21% at approx 0800. [place] tube placed in R nare by at approx 1400. 70cm at nare. MD ordered pt extubated at 1505. Performed without incident. RT, family, credit underwriter at bedside. Oral suction provided. Pt placed on 2L via NC. TF running at goal rate; tolerated well. Pt repositioned q2hr.
[2025-02-14] MEDS: Atorvastatin Calcium 80 MG TABLET PO (21:10)
[2025-02-14 23:26] LABS: Glucose, Whole Blood 222 mg/dL (60-115)
[2025-02-15] VITALS (16 sets, daily range): BP systolic 130–184; BP diastolic 52–77; PULSE 70–84; RESP 15–32; TEMP 36.2–36.9; O2SAT 96–98; BMI 17.3
[2025-02-15 05:22] LABS: Glucose, Whole Blood 196 mg/dL (60-115)
[2025-02-15] MEDS: Levothyroxine Sodium 100 MCG/5 ML VIAL 75 MCG IVPUSH (05:23)
[2025-02-15] MEDS: Insulin Lispro 100 UNIT/ML 3 ML VIAL SUBCUT ×3 (05:23→17:56)
[2025-02-15 05:36] LABS: VBG Base Excess 5.4 mmol/L; VBG HCO3 27 mmol/L (22-26); VBG pCO2 31 mmHg; VBG pH 7.55 (7.32-7.43); VBG pO2 47 mmHg
[2025-02-15 05:54] LABS: MANUAL DIFF FLAG NO
[2025-02-15 05:55] LABS: Basophils Percent Auto 0.4 % (0-2); Eosinophils Absolute Auto 0.5 X10*3/uL (0.0-0.4); Eosinophils Percent Auto 5.7 % (0-4); Hematocrit 22.8 % (37.0-47.0); Hemoglobin 7.6 g/dl (12.0-16.0); Imm Gran Abs Auto 0.05 X10*3/uL (0.00-0.03); Imm Gran Pct Auto 0.6 % (0.0-0.4); Lymphocytes Absolute Auto 0.5 X10*3/uL (1.2-4.9); Lymphocytes Percent Auto 5.4 % (20-40); Mean Corpuscular HGB Conc 33.3 g/dl (31.0-35.0); Mean Corpuscular Hemoglobin 29.9 pg (27.0-33.0); Mean Corpuscular Volume 89.8 fL (80.0-98.0); Mean Platelet Volume 11.1 fL (9.4-12.3); Monocytes Absolute Auto 0.7 X10*3/uL (0.1-1.2); Monocytes Percent Auto 8.8 % (2-11); Neutrophils Absolute Auto 6.6 x10*3/uL (2.0-8.3); Neutrophils Percent Auto 79.1 % (45-73); Platelet Count 191 X10*3/uL (160-400); Red Blood Count 2.54 X10*6/uL (4.20-5.50); Red Cell Distribution Width 13.7 % (11.0-16.0); White Blood Count 8.4 X10*3/uL (4.8-10.8)
[2025-02-15] MEDS: hydrALAZINE HCl 20 MG/ML VIAL 10 MG IVPUSH (06:06)
[2025-02-15 06:16] LABS: Albumin Level 3.3 g/dL (3.5-5.0); Anion Gap 19 (12-20); Blood Urea Nitrogen 59 mg/dL (9-16); Calcium 8.8 mg/dL (8.4-10.2); Carbon Dioxide 23 mmol/L (22-29); Chloride 100 mmol/L (96-108); Creatinine Clr Calc Pharmacy 10.9; Estimated Glomerular Filt Rate 13; Glucose Random 202 mg/dL (60-115); Magnesium 1.9 mg/dL (1.6-2.6); Phosphorus 4.1 mg/dL (2.7-4.5); Potassium 4.5 mmol/L (3.3-5.1); Sodium 137 mmol/L (135-145)
--- NOTE | 2025-02-15 06:16 | PC.NURSE ---
Assumed care 1900 - pt drowsy/arousable to name, does not follow commands. SpO2 >97% on RA. PRN Hydralazine administered for BP 184/85 - see MAR.?
[2025-02-15 06:19] LABS: Venous Blood Gas Refer to POC result
[2025-02-15] MEDS: 0.9 % Sodium Chloride Flush 3 ML SYRINGE IVFLUSH ×3 (07:29→20:09)
[2025-02-15] MEDS: Albumin Human 25 % 100 ML IV ×2 (07:30→15:00)
[2025-02-15] MEDS: Chlorhexidine Gluc Oral Rinse 15 ML MOUTHWASH BUCCAL ×3 (07:58→20:14)
[2025-02-15] MEDS: hydrALAZINE HCl 50 MG TABLET PO ×4 (08:03→20:09)
[2025-02-15] MEDS: Labetalol HCL 100 MG TABLET PO (08:04)
[2025-02-15] MEDS: cloNIDine HCL 0.1 MG TABLET PO ×2 (08:04→20:09)
[2025-02-15] MEDS: Isosorbide Dinitrate 20 MG TABLET PO ×3 (08:04→17:56)
--- NOTE | 2025-02-15 08:40 | PM.CCPN ---
Subjective Subjective Date of Service: 02/15/25 Interval History: 79-year-old lady with underlying history of hypertension, hyperlipidemia, diabetes mellitus, CAD, CVA with right-sided hemiparesis, hypothyroidism, LUANA admitted on 01/19/2025 with acute hypoxic respiratory failure and alteration of mental status requiring intubation and ventilatory support. Patient treated for pulmonary edema with diuresis with significant improvement, and also empiric antibiotics for overlying pneumonia. Extubated uneventfully on 01/22/2025. However, patient with persistent encephalopathy and rising uremia started on hemodialysis 01/27/2025. Required re-intubation on 01/29/2025 secondary to pulmonary aspiration, upper GI bleed secondary to duodenal ulcer requiring embolization on 01/30/2025, and MRI brain demonstrating new left-sided infarcts. now remains significantly encephalopathic on ventilatory support despite having no sedatives. Extubated 02/14/2025. Not require positive pressure ventilatory support overnight. Mental status remains significantly suppressed. No events overnight. Critical Care Time (minutes): 0 Physical Exam Vital Signs: Vital Signs: Last Vital Signs Temp 97.7 F 02/15/25 08:00 Pulse 81 02/15/25 08:00 Resp 28 H 02/15/25 08:00 BP 173/62 H 02/15/25 08:04 Pulse Ox 97 02/15/25 08:00 O2 Del Method Room Air 02/15/25 08:00 O2 Flow Rate 2 02/14/25 19:00 FiO2 21 02/14/25 17:00 BMI result Body Mass Index 17.3 Const: General: no acute distress and lethargic (Intermittently arousable, intermittently nods to questions) Orientation/consciousness: lethargic (Intermittently arousable, intermittently nods to questions) Eyes: Sclerae: sclerae normal EOM: EOMs intact bilaterally Neck: Neck: Yes no lymphadenopathy, Yes trachea midline and Yes supple Resp: Effort & Inspection: normal respiratory effort and no respiratory distress Auscultation: clear to auscultation bilaterally Cardio: Rate: regular rate Rhythm: regular rhythm Heart sounds: no gallops, no murmurs and no rubs GI: Palpation (GI): Soft to palpation and Other GI palpation findings present ( Nontender) Auscultation: normal bowel sounds Extrem: General: Yes no pedal edema, No clubbing and No cyanosis Objective Data Labs 02/15/25 05:26 02/15/25 05:26 Labs: Laboratory Results - last 24 hr 02/14/25 02/14/25 02/14/25 11:47 17:20 23:22 WBC RBC Hgb Hct MCV MCH MCHC RDW Plt Count MPV Immature Gran % (Auto) Neut % (Auto) Lymph % (Auto) [place] % (Auto) Eos % (Auto) Baso % (Auto) Lymph # (Auto) [place] # (Auto) Eos # (Auto) Baso # (Auto) Abs Immat Gran (auto) Absolute Neuts (auto) Absolute Nucleated RBC Nucleated RBC % (auto) VBG pH VBG pCO2 VBG pO2 VBG HCO3 VBG O2 Saturation VBG Base Excess Sodium Potassium Chloride Carbon Dioxide Anion Gap BUN Creatinine Estim Creat Clear Calc Estimated GFR POC Glucose 258 H 214 H 222 H Random Glucose Calcium Phosphorus Magnesium Albumin 02/15/25 02/15/25 02/15/25 05:17 05:26 05:33 WBC 8.4 RBC 2.54 L Hgb 7.6 L Hct 22.8 L MCV 89.8 MCH 29.9 MCHC 33.3 RDW 13.7 Plt Count 191 MPV 11.1 Immature Gran % (Auto) 0.6 H Neut % (Auto) 79.1 H Lymph % (Auto) 5.4 L [place] % (Auto) 8.8 Eos % (Auto) 5.7 H Baso % (Auto) 0.4 Lymph # (Auto) 0.5 L [place] # (Auto) 0.7 Eos # (Auto) 0.5 H Baso # (Auto) 0.0 Abs Immat Gran (auto) 0.05 H Absolute Neuts (auto) 6.6 Absolute Nucleated RBC 0.000 Nucleated RBC % (auto) 0.0 VBG pH 7.55 H VBG pCO2 31 VBG pO2 47 VBG HCO3 27 H VBG O2 Saturation 82.0 VBG Base Excess 5.4 Sodium 137 Potassium 4.5 D Chloride 100 Carbon Dioxide 23 Anion Gap 19 BUN 59 H Creatinine 3.40 H Estim Creat Clear Calc 10.9 Estimated GFR 13 POC Glucose 196 H Random Glucose 202 H Calcium 8.8 Phosphorus 4.1 Magnesium 1.9 Albumin 3.3 L Microbiology Microbiology Results: Microbiology 01/19/25 07:38 Blood - Venous Blood Culture - Final No growth after 5 days. 01/19/25 07:14 Blood - Venous Blood Culture - Final No growth after 5 days. Progress Note: A&P Assessment and plan (1) HTN (hypertension): Status: Acute (2) Acute combined systolic and diastolic congestive heart failure: Status: Acute (3) Diabetes: Status: Acute (4) Hypothyroid: Status: Acute (5) Duodenal ulcer: Status: Acute (6) ESRD on hemodialysis: Status: Acute (7) Myopathy: Status: Acute (8) Cerebrovascular accident: Status: Acute (9) Dementia: Status: Acute (10) Pulmonary aspiration: Status: Acute Plan Assessment: 79-year-old lady admitted with acute hypoxic respiratory failure requiring ventilatory support, likely secondary to acute on chronic combined systolic and diastolic congestive heart failure, improved with diuresis, extubated on 01/22/2025, further complicated by acute chronic CVA with significant encephalopathy. Plan: Neuro: encephalopathy with new left-sided CVA on the background of prior CVA. Cardiac: Acute on chronic combined systolic and diastolic congestive heart failure. Cardiology service care appreciated. Hypertension, continue antihypertensive regimen. Pulmonary: Acute hypoxic respiratory failure secondary to pulmonary aspiration requiring ventilatory support, extubated on 02/14/2025. Healthcare proxy/family chose against re-intubation if patient addition starts to deteriorate. Renal: End-stage renal disease on hemodialysis. Nephrology service care appreciated. Continue to monitor renal indices and urine output. Endo: No acute issues. Underlying diabetes mellitus on subcutaneous insulin. GI: Upper GI bleed secondary to duodenal ulcer requiring embolization, now resolved. ID: No acute issues Heme/Onc: acute blood loss anemia secondary to upper GI bleed, resolved. Continue to monitor hemoglobin level. Psych: No acute issues. Miscellaneous: Now in DNI status with transition to palliation if developing respiratory distress. Prophylaxis: Compression therapy Diet: Tube feeds Quality Stroke Does the patient have a stroke diagnosis?: Yes Reason for No Anti-thrombotic by Day Two: N/A - Med Ordered VTE Prior VTE?: No VTE Risk Level:: Medical - moderate - high VTE Device Contraindication: N/A - Device Ordered VTE Drug Contraindication: Treatment Not Tolerated
--- NOTE | 2025-02-15 09:56 | MHC.CM.PN ---
Pt extubated and will transfer to the medical floor today. Family has decided not to reintubate but no other changes to care plan at this time. Family would like to pursue STR at [facility] (where pt was prior to hospitalization) Clinical updates remitted. No other SNF choices at this time. Pt may not be medically appropriate for acute rehab but referrals were made as well. CM to follow
[2025-02-15 12:28] LABS: Glucose, Whole Blood 246 mg/dL (60-115)
--- NOTE | 2025-02-15 13:50 | P.PNNP_ITS ---
Subjective Subjective Date of Service: 02/15/25 Interval history: 79-year-old lady with underlying history of hypertension, hyperlipidemia, diabetes mellitus, CAD, CVA with right-sided hemiparesis, hypothyroidism, LUANA admitted on 01/19/2025 with acute hypoxic respiratory failure and alteration of mental status requiring intubation and ventilatory support. Patient treated for pulmonary edema with diuresis with significant improvement, and also empiric antibiotics for overlying pneumonia. Extubated uneventfully on 01/22/2025. However, patient with persistent encephalopathy and rising uremia started on hemodialysis 01/27/2025. Required re-intubation on 01/29/2025 secondary to pulmonary aspiration, upper GI bleed secondary to duodenal ulcer requiring embolization on 01/30/2025, and MRI brain demonstrating new left-sided infarcts. now remains significantly encephalopathic on ventilatory support despite having no sedatives. Extubated 02/14/2025. Not require positive pressure ventilatory support overnight. Mental status remains significantly suppressed. No events overnight. Physical Exam 2 Vital Signs: Vital Signs: Last Vital Signs Temp 97.1 F 02/15/25 12:00 Pulse 78 02/15/25 12:00 Resp 15 02/15/25 12:00 BP 140/60 H 02/15/25 12:00 Pulse Ox 98 02/15/25 12:00 O2 Del Method Room Air 02/15/25 12:00 O2 Flow Rate 2 02/14/25 19:00 FiO2 21 02/14/25 17:00 BMI result Body Mass Index 17.3 Const: General: no acute distress and ill appearing Eyes: EOM: EOMs intact bilaterally Neck: Neck: Yes supple Resp: Auscultation: diminished lung sounds Cardio: Palpation: no palpable S3 Rate: regular rate Heart sounds: no rubs GI: Palpation (GI): Soft to palpation Auscultation: normal bowel sounds Neuro: General: moves all extremities Motor exam (neuro): no asterixis Objective Data Labs 02/15/25 05:26 02/15/25 05:26 Labs: Laboratory Results - last 24 hr 02/14/25 02/14/25 02/15/25 17:20 23:22 05:17 WBC RBC Hgb Hct MCV MCH MCHC RDW Plt Count MPV Immature Gran % (Auto) Neut % (Auto) Lymph % (Auto) [place] % (Auto) Eos % (Auto) Baso % (Auto) Lymph # (Auto) [place] # (Auto) Eos # (Auto) Baso # (Auto) Abs Immat Gran (auto) Absolute Neuts (auto) Absolute Nucleated RBC Nucleated RBC % (auto) VBG pH VBG pCO2 VBG pO2 VBG HCO3 VBG O2 Saturation VBG Base Excess Sodium Potassium Chloride Carbon Dioxide Anion Gap BUN Creatinine Estim Creat Clear Calc Estimated GFR POC Glucose 214 H 222 H 196 H Random Glucose Calcium Phosphorus Magnesium Albumin 02/15/25 02/15/25 02/15/25 05:26 05:33 12:23 WBC 8.4 RBC 2.54 L Hgb 7.6 L Hct 22.8 L MCV 89.8 MCH 29.9 MCHC 33.3 RDW 13.7 Plt Count 191 MPV 11.1 Immature Gran % (Auto) 0.6 H Neut % (Auto) 79.1 H Lymph % (Auto) 5.4 L [place] % (Auto) 8.8 Eos % (Auto) 5.7 H Baso % (Auto) 0.4 Lymph # (Auto) 0.5 L [place] # (Auto) 0.7 Eos # (Auto) 0.5 H Baso # (Auto) 0.0 Abs Immat Gran (auto) 0.05 H Absolute Neuts (auto) 6.6 Absolute Nucleated RBC 0.000 Nucleated RBC % (auto) 0.0 VBG pH 7.55 H VBG pCO2 31 VBG pO2 47 VBG HCO3 27 H VBG O2 Saturation 82.0 VBG Base Excess 5.4 Sodium 137 Potassium 4.5 D Chloride 100 Carbon Dioxide 23 Anion Gap 19 BUN 59 H Creatinine 3.40 H Estim Creat Clear Calc 10.9 Estimated GFR 13 POC Glucose 246 H Random Glucose 202 H Calcium 8.8 Phosphorus 4.1 Magnesium 1.9 Albumin 3.3 L Microbiology Microbiology Results: Microbiology 01/19/25 07:38 Blood - Venous Blood Culture - Final No growth after 5 days. 01/19/25 07:14 Blood - Venous Blood Culture - Final No growth after 5 days. Procedures Date of Service Date of Service: 02/15/25 Assessment & Plan Assessment and plan (1) Acute kidney injury superimposed on CKD: Status: Acute Plan 79-year-old woman with acute kidney injury superimposed on chronic kidney disease due to tubular injury Urine sediments bland therefore glomerular nephritis or interstitial disease seem less likely. No renal recovery yet. We will schedule for dialysis tomorrow and reassess Overall prognosis guarded Time Spent With Patient Time: Total time managing care of this patient today ____ minutes. Progress Note: Quality Stroke Does the patient have a stroke diagnosis?: Yes Reason for No Anti-thrombotic by Day Two: N/A - Med Ordered
--- NOTE | 2025-02-15 17:12 | PC.NURSE ---
Assumed care at 0700. Pt on room air, o2 sat 97%. Pt repositioned q2hr. See assessments for more details regarding medications, etc. Pt to be transferred to [place]. Report given to Marie PIERCE at approx 1130.
[2025-02-15 17:57] LABS: Glucose, Whole Blood 232 mg/dL (60-115)
[2025-02-15] MEDS: Atorvastatin Calcium 80 MG TABLET PO (20:09)
[2025-02-16] VITALS (8 sets, daily range): BP systolic 105–176; BP diastolic 50–76; PULSE 79–93; RESP 16–24; TEMP 36.5–37.5; O2SAT 96–99; BMI 23.9
[2025-02-16 00:11] LABS: Glucose, Whole Blood 200 mg/dL (60-115)
[2025-02-16] MEDS: Insulin Lispro 100 UNIT/ML 3 ML VIAL SUBCUT ×5 (00:21→23:58)
[2025-02-16] MEDS: Levothyroxine Sodium 125 MCG TABLET PO (05:38)
[2025-02-16 05:58] LABS: Glucose, Whole Blood 223 mg/dL (60-115)
[2025-02-16 07:45] LABS: MANUAL DIFF FLAG NO
[2025-02-16 07:53] LABS: Basophils Absolute Auto 0.1 X10*3/uL (0.0-0.2); Basophils Percent Auto 0.5 % (0-2); Eosinophils Absolute Auto 0.5 X10*3/uL (0.0-0.4); Eosinophils Percent Auto 4.8 % (0-4); Hematocrit 23.1 % (37.0-47.0); Hemoglobin 7.8 g/dl (12.0-16.0); Imm Gran Abs Auto 0.05 X10*3/uL (0.00-0.03); Imm Gran Pct Auto 0.5 % (0.0-0.4); Lymphocytes Absolute Auto 0.4 X10*3/uL (1.2-4.9); Lymphocytes Percent Auto 4.1 % (20-40); Mean Corpuscular HGB Conc 33.8 g/dl (31.0-35.0); Mean Corpuscular Hemoglobin 29.9 pg (27.0-33.0); Mean Corpuscular Volume 88.5 fL (80.0-98.0); Mean Platelet Volume 10.9 fL (9.4-12.3); Monocytes Absolute Auto 0.6 X10*3/uL (0.1-1.2); Monocytes Percent Auto 6.1 % (2-11); Neutrophils Absolute Auto 8.5 x10*3/uL (2.0-8.3); Platelet Count 208 X10*3/uL (160-400); Red Blood Count 2.61 X10*6/uL (4.20-5.50); Red Cell Distribution Width 13.6 % (11.0-16.0); White Blood Count 10.1 X10*3/uL (4.8-10.8)
[2025-02-16 08:17] LABS: Albumin Level 3.6 g/dL (3.5-5.0); Anion Gap 21 (12-20); Blood Urea Nitrogen 97 mg/dL (9-16); Calcium 9.6 mg/dL (8.4-10.2); Carbon Dioxide 21 mmol/L (22-29); Chloride 97 mmol/L (96-108); Glucose Random 212 mg/dL (60-115); Magnesium 1.9 mg/dL (1.6-2.6); Phosphorus 5.1 mg/dL (2.7-4.5); Potassium 4.5 mmol/L (3.3-5.1); Sodium 134 mmol/L (135-145)
[2025-02-16 08:21] LABS: Creatinine Clr Calc Pharmacy 9.4; Estimated Glomerular Filt Rate 9
[2025-02-16] MEDS: Labetalol HCL 100 MG TABLET PO (08:30)
[2025-02-16] MEDS: amLODIPine Besylate 5 MG TABLET PO (08:30)
[2025-02-16] MEDS: Isosorbide Dinitrate 20 MG TABLET PO ×2 (08:31→18:12)
[2025-02-16] MEDS: 0.9 % Sodium Chloride Flush 3 ML SYRINGE IVFLUSH ×3 (08:31→20:19)
[2025-02-16] MEDS: hydrALAZINE HCl 50 MG TABLET PO ×3 (08:31→20:18)
[2025-02-16] MEDS: cloNIDine HCL 0.1 MG TABLET PO ×2 (08:32→20:18)
[2025-02-16] MEDS: Chlorhexidine Gluc Oral Rinse 15 ML MOUTHWASH BUCCAL ×3 (08:53→23:59)
--- NOTE | 2025-02-16 10:31 | MHC.CM.PN ---
EMR REVIEWED, PT W/NEW LEFT SIDED CVA, HF, AHRFD/T PULOMONARY ASPIRATION S/P VENTED IN ICU, PT STEP DOWN FROM ICU 02/15, PT WAS AT [facility] FOR STR PRIOR TO ADMIT, REFERRALS TO ACUTE REHAB WELL, NO PLAN FOR DC AT THIS TIME, CM WILL CONT TO FOLLOW DC NEEDS.
[2025-02-16 11:45] LABS: Glucose, Whole Blood 226 mg/dL (60-115)
--- NOTE | 2025-02-16 12:06 | MHC.CLN ---
F/U PT EXTUBATED AND TRANSFERRED TO MEDICAL FLOOR PT WITH NGT IN PLACE-TF TO RESUME CONTINUE NEPRO AT MAX GOAL RATE 40ML/HR WITH 240ML FREE WATER FLUSHES Q 8 HRS PROVIDES 1728KCALS (32.6KCALS/KG BASED ON ABW), 78G PROTEIN (1.5G/KG), 1418 ML TOTAL WATER FROM FORMULA AND FLUSHES (26.7ML/KG) MONITOR LYTES AND TF TOLERANCE
--- NOTE | 2025-02-16 13:29 | P.PNIM_ITS ---
Subjective Subjective Date of Service: 02/16/25 Interval History: Seen and evaluated this morning Altered mentation , open eyes Tube feeding running On RA no other events Review of Systems Review of Systems: Yes all other systems are reviewed and are negative Physical Exam 2 Vital Signs: Vital Signs: Last Vital Signs Temp 98.8 F 02/16/25 11:49 Pulse 88 02/16/25 11:49 Resp 22 H 02/16/25 11:49 BP 157/67 H 02/16/25 11:49 Pulse Ox 98 02/16/25 11:49 O2 Del Method Room Air 02/16/25 08:00 O2 Flow Rate 2 02/14/25 19:00 FiO2 21 02/14/25 17:00 BMI result Body Mass Index 23.9 Const: Other: Constitutional : not interactive, not in distress Cardiovascular : no JVP, no lower extremity edema Respiratory : bilateral chest movement, not in resp distress Gastrointestinal: soft, lax, Non tender, NG tube in place Skin : Warm, Dry Neurological : Altered, open eyes to vocal stimuli, not moving extremities. non verbal Objective Data Active Medications Amlodipine Besylate (Amlodipine Besylate 5 Mg Tablet) 5 mg PO DAILY [facility]; Protocol Last Admin: 02/16/25 08:30 Dose: 5 mg Documented By: OCTAVIO Atorvastatin Calcium (Atorvastatin Calcium 80 Mg Tablet) 80 mg PO BEDTIME [facility] Last Admin: 02/15/25 20:09 Dose: 80 mg Documented By: VALERIA Chlorhexidine Gluconate (Chlorhexidine Gluc Oral Rinse 15 Ml Mouthwash) 15 ml BUCCAL TID [facility] Last Admin: 02/16/25 08:53 Dose: 15 ml Documented By: OCTAVIO Clonidine HCl (Clonidine Hcl 0.1 Mg Tablet) 0.1 mg PO BID [facility]; Protocol Last Admin: 02/16/25 08:32 Dose: 0.1 mg Documented By: OCTAVIO Dextrose (Dextrose 50 % 25 Gm/50 Ml Syringe) 25 gm IVPUSH Q15M PRN; Protocol PRN Reason: per Hypoglycemia Standing Ord. Glucose (Glucose Gel 15 Gm Gel..Gram.) 15 gm PO Q15M PRN; Protocol PRN Reason: per Hypoglycemia Standing Ord. Hydralazine HCl (Hydralazine Hcl 20 Mg/Ml Vial) 10 mg IVPUSH Q4H PRN; Protocol PRN Reason: Hypertension Last Admin: 02/15/25 06:06 Dose: 10 mg Documented By: CHYNA Hydralazine HCl (Hydralazine Hcl 50 Mg Tablet) 50 mg PO QID [facility]; Protocol Last Admin: 02/16/25 08:31 Dose: 50 mg Documented By: OCTAVIO Insulin Human Lispro (Insulin Lispro 100 Unit/Ml 3 Ml Vial) 0 unit SUBCUT Q6H [facility]; Protocol Last Admin: 02/16/25 12:07 Dose: 4 unit Documented By: OCTAVIO Isosorbide Dinitrate (Isosorbide Dinitrate 20 Mg Tablet) 20 mg PO 0800,1300,1800 [facility]; Protocol Last Admin: 02/16/25 08:31 Dose: 20 mg Documented By: OCTAVIO Labetalol HCl (Labetalol Hcl 100 Mg Tablet) 100 mg PO DAILY [facility]; Protocol Last Admin: 02/16/25 08:30 Dose: 100 mg Documented By: OCTAVIO Levothyroxine Sodium (Levothyroxine Sodium 125 Mcg Tablet) 125 mcg PO DAILY@0600 [facility] Last Admin: 02/16/25 05:38 Dose: 125 mcg Documented By: VALERIA Sodium Chloride (0.9 % Sodium Chloride Flush 3 Ml Syringe) 3 ml IVFLUSH QSHIFT [facility] Last Admin: 02/16/25 08:31 Dose: 3 ml Documented By: OCTAVIO Labs 02/16/25 07:25 02/16/25 07:25 Labs: Laboratory Results - last 24 hr 02/15/25 02/16/25 02/16/25 17:53 00:07 05:54 MCV MCH MCHC RDW Plt Count MPV Immature Gran % (Auto) Neut % (Auto) Lymph % (Auto) [place] % (Auto) Eos % (Auto) Baso % (Auto) Lymph # (Auto) [place] # (Auto) Eos # (Auto) Baso # (Auto) Abs Immat Gran (auto) Absolute Neuts (auto) Absolute Nucleated RBC Nucleated RBC % (auto) Anion Gap Estim Creat Clear Calc Estimated GFR POC Glucose 232 H 200 H 223 H Random Glucose Calcium Phosphorus Magnesium Albumin 02/16/25 02/16/25 07:25 11:32 MCV 88.5 MCH 29.9 MCHC 33.8 RDW 13.6 Plt Count 208 MPV 10.9 Immature Gran % (Auto) 0.5 H Neut % (Auto) 84.0 H Lymph % (Auto) 4.1 L [place] % (Auto) 6.1 Eos % (Auto) 4.8 H Baso % (Auto) 0.5 Lymph # (Auto) 0.4 L [place] # (Auto) 0.6 Eos # (Auto) 0.5 H Baso # (Auto) 0.1 Abs Immat Gran (auto) 0.05 H Absolute Neuts (auto) 8.5 H Absolute Nucleated RBC 0.000 Nucleated RBC % (auto) 0.0 Anion Gap 21 H Estim Creat Clear Calc 9.4 Estimated GFR 9 POC Glucose 226 H Random Glucose 212 H Calcium 9.6 D Phosphorus 5.1 H Magnesium 1.9 Albumin 3.6 Assessment and Plan (1) Pulmonary aspiration: Status: Acute (2) ESRD on hemodialysis: Status: Acute (3) Myopathy: Status: Acute (4) Renal failure: Status: Acute (5) Duodenal ulcer: Status: Acute (6) Acute on chronic anemia: Status: Acute Plan 79-year-old lady admitted with acute hypoxic respiratory failure requiring ventilatory support, likely secondary to acute on chronic combined systolic and diastolic congestive heart failure, improved with diuresis, extubated on 01/22/2025, further complicated by acute chronic CVA with significant encephalopathy, GI bleed. extubated 02/14 but remains altered mentation Toxic metabolic encephalopathy with new left-sided CVA on the background of prior CVA on Statin Start Tube feeding not on ASA given GIB , restart after discussing with GI to discuss goals of care Acute on chronic combined systolic and diastolic congestive heart failure. Cardiology following improved continue antihypertensive regimen. Acute hypoxic respiratory failure secondary to pulmonary aspiration requiring ventilatory support REsolved, extubated on 02/14/2025. Healthcare proxy/family chose DNI Monitor End-stage renal disease on hemodialysis. Nephrology following, on dialysis monitor renal indices and urine output. diabetes mellitus subcutaneous insulin. Upper GI bleed with acute blood loss anemia secondary to duodenal ulcer requiring embolization continue PPI Prophylaxis: Compression therapy ACP: Discuss goals of care with HCP The patient will need overnight stay pending improvement in mentation, tolerance of diet vs advance goals of care discussion. Quality Stroke Does the patient have a stroke diagnosis?: Yes Reason for No Anti-thrombotic by Day Two: N/A - Med Ordered VTE Prior VTE?: No VTE Risk Level:: Medical - moderate - high VTE Device Contraindication: N/A - Device Ordered VTE Drug Contraindication: Treatment Not Tolerated
--- NOTE | 2025-02-16 15:20 | P.PNNP_ITS ---
Subjective Subjective Date of Service: 02/16/25 Interval history: Seen and evaluated this morning ; Altered mentation ;Tube feeding running ;On RA ;no other events Physical Exam 2 Vital Signs: Vital Signs: Last Vital Signs Temp 98.8 F 02/16/25 11:49 Pulse 88 02/16/25 11:49 Resp 22 H 02/16/25 11:49 BP 157/67 H 02/16/25 11:49 Pulse Ox 98 02/16/25 11:49 O2 Del Method Room Air 02/16/25 08:00 O2 Flow Rate 2 02/14/25 19:00 FiO2 21 02/14/25 17:00 BMI result Body Mass Index 23.9 Const: General: no acute distress Resp: Auscultation: diminished lung sounds Cardio: Rate: regular rate GI: Palpation (GI): Soft to palpation Skin: General skin exam: no rashes or lesions noted Objective Data Labs 02/16/25 07:25 02/16/25 07:25 Labs: Laboratory Results - last 24 hr 02/15/25 02/16/25 02/16/25 17:53 00:07 05:54 WBC RBC Hgb Hct MCV MCH MCHC RDW Plt Count MPV Immature Gran % (Auto) Neut % (Auto) Lymph % (Auto) [place] % (Auto) Eos % (Auto) Baso % (Auto) Lymph # (Auto) [place] # (Auto) Eos # (Auto) Baso # (Auto) Abs Immat Gran (auto) Absolute Neuts (auto) Absolute Nucleated RBC Nucleated RBC % (auto) Sodium Potassium Chloride Carbon Dioxide Anion Gap BUN Creatinine Estim Creat Clear Calc Estimated GFR POC Glucose 232 H 200 H 223 H Random Glucose Calcium Phosphorus Magnesium Albumin 02/16/25 02/16/25 07:25 11:32 WBC 10.1 RBC 2.61 L Hgb 7.8 L Hct 23.1 L MCV 88.5 MCH 29.9 MCHC 33.8 RDW 13.6 Plt Count 208 MPV 10.9 Immature Gran % (Auto) 0.5 H Neut % (Auto) 84.0 H Lymph % (Auto) 4.1 L [place] % (Auto) 6.1 Eos % (Auto) 4.8 H Baso % (Auto) 0.5 Lymph # (Auto) 0.4 L [place] # (Auto) 0.6 Eos # (Auto) 0.5 H Baso # (Auto) 0.1 Abs Immat Gran (auto) 0.05 H Absolute Neuts (auto) 8.5 H Absolute Nucleated RBC 0.000 Nucleated RBC % (auto) 0.0 Sodium 134 L Potassium 4.5 Chloride 97 Carbon Dioxide 21 L Anion Gap 21 H BUN 97 H Creatinine 4.92 H* Estim Creat Clear Calc 9.4 Estimated GFR 9 POC Glucose 226 H Random Glucose 212 H Calcium 9.6 D Phosphorus 5.1 H Magnesium 1.9 Albumin 3.6 Microbiology Microbiology Results: Microbiology 01/19/25 07:38 Blood - Venous Blood Culture - Final No growth after 5 days. 01/19/25 07:14 Blood - Venous Blood Culture - Final No growth after 5 days. Procedures Date of Service Date of Service: 02/16/25 Assessment & Plan Assessment and plan (1) Acute kidney injury superimposed on CKD: Status: Acute Assessment and Plan: 79-year-old woman with acute kidney injury superimposed on chronic kidney disease due to tubular injury Urine sediments bland therefore glomerular nephritis or interstitial disease seem less likely.Shall keep on MWF HD Continue rest of current medication regimen ; Labs AM; Shall F/U closely Progress Note: Quality Stroke Does the patient have a stroke diagnosis?: Yes Reason for No Anti-thrombotic by Day Two: N/A - Med Ordered
--- NOTE | 2025-02-16 16:33 | HO.WOUND ---
Wound Consult: Initial 79yr old female? admitted to [facility] on 01/19/25 09:34 - See progress notes and H&P for detailed history.? Wound consult placed for Coccyx.? Patient is not responsive to her environment at the time of mu consult. Sacrum and Perineal Etiology: ??MASD Wound Bed: mirrored hyperpigmentaiton noted - scattered areas of partial thickness tissue loss Drainage / Odor: None noted Edges: ? Mirrored and attached Pinky wound: ? No Induration, Fluctuance or Warmth noted Goals of Treatment: ? Foam to sacrum to protect from friction and moisture and aid in pressure redistribution - Triad to perineal and intergluteal area Recommendations: 1. Turn and Reposition every 2 hours and as needed for patient comfort.? Use pillows or wedges to support off loading positions. 2. Off Load all bony prominences with use of pillows and heel boots if needed.? Apply Preventative foams where needed. ? 3. Monitor for incontinence and moisture control, use barrier creams when needed for prevention and treatment. 4. Provide adequate and supplemental nutrition.? 5. Continue low air loss mattress. 6. When applicable maintain blood glucose levels per Providers order. 7. Sacrum - Off Load Pressure with Q2 hr turns and use of pillows - Cleanse with PH balance spray or wipes, pat dry. Apply foam dressing to aid in off loading and protection from friction. Change every 5 days and PRN. 8. Perineal and Intergluteal - Off Load Pressure with Q2 hr turns and use of pillows - Cleanse with PH balance spray or wipes, pat dry. ?Apply thin layer of Triad to wound bed - only pat and dab no scrub and rub when soiling occurs. Reapply thin layer PRN after each episode of incontinence. Re-consult wound care Nurse for wound deterioration or wound changes.
[2025-02-16 18:12] LABS: Glucose, Whole Blood 266 mg/dL (60-115)
[2025-02-16 20:00] LABS: Glucose, Whole Blood 265 mg/dL (60-115)
[2025-02-16] MEDS: Atorvastatin Calcium 80 MG TABLET PO (20:18)
[2025-02-16 23:40] LABS: Glucose, Whole Blood 223 mg/dL (60-115)
[2025-02-17] VITALS (11 sets, daily range): BP systolic 118–178; BP diastolic 56–72; PULSE 71–92; RESP 16–20; TEMP 36.4–37.1; O2SAT 94–98; BMI 23.0
[2025-02-17 05:39] LABS: Glucose, Whole Blood 239 mg/dL (60-115)
[2025-02-17] MEDS: Levothyroxine Sodium 125 MCG TABLET PO (05:44)
[2025-02-17] MEDS: Insulin Lispro 100 UNIT/ML 3 ML VIAL SUBCUT ×3 (05:44→17:58)
[2025-02-17 07:05] LABS: MANUAL DIFF FLAG NO
[2025-02-17 07:07] LABS: Basophils Absolute Auto 0.1 X10*3/uL (0.0-0.2); Basophils Percent Auto 0.6 % (0-2); Eosinophils Absolute Auto 0.4 X10*3/uL (0.0-0.4); Eosinophils Percent Auto 4.5 % (0-4); Hematocrit 25.3 % (37.0-47.0); Hemoglobin 8.3 g/dl (12.0-16.0); Imm Gran Abs Auto 0.06 X10*3/uL (0.00-0.03); Imm Gran Pct Auto 0.6 % (0.0-0.4); Lymphocytes Absolute Auto 0.5 X10*3/uL (1.2-4.9); Mean Corpuscular HGB Conc 32.8 g/dl (31.0-35.0); Mean Corpuscular Hemoglobin 29.4 pg (27.0-33.0); Mean Corpuscular Volume 89.7 fL (80.0-98.0); Mean Platelet Volume 10.8 fL (9.4-12.3); Monocytes Absolute Auto 0.7 X10*3/uL (0.1-1.2); Monocytes Percent Auto 6.9 % (2-11); Neutrophils Absolute Auto 8.2 x10*3/uL (2.0-8.3); Neutrophils Percent Auto 82.4 % (45-73); Platelet Count 226 X10*3/uL (160-400); Red Blood Count 2.82 X10*6/uL (4.20-5.50); Red Cell Distribution Width 13.6 % (11.0-16.0); White Blood Count 9.9 X10*3/uL (4.8-10.8)
[2025-02-17 07:31] LABS: Anion Gap 19 (12-20); Blood Urea Nitrogen 59 mg/dL (9-16); Calcium 9.3 mg/dL (8.4-10.2); Carbon Dioxide 25 mmol/L (22-29); Chloride 97 mmol/L (96-108); Creatinine Clr Calc Pharmacy 13.7; Estimated Glomerular Filt Rate 13; Glucose Random 268 mg/dL (60-115); Potassium 3.9 mmol/L (3.3-5.1); Sodium 137 mmol/L (135-145)
[2025-02-17] MEDS: amLODIPine Besylate 5 MG TABLET G-TUBE (10:00)
[2025-02-17] MEDS: cloNIDine HCL 0.1 MG TABLET G-TUBE ×2 (10:00→20:06)
[2025-02-17] MEDS: Labetalol HCL 100 MG TABLET G-TUBE (10:02)
[2025-02-17] MEDS: hydrALAZINE HCl 50 MG TABLET G-TUBE ×4 (10:02→20:06)
[2025-02-17] MEDS: Isosorbide Dinitrate 20 MG TABLET G-TUBE ×3 (10:03→17:57)
[2025-02-17] MEDS: 0.9 % Sodium Chloride Flush 3 ML SYRINGE IVFLUSH ×3 (10:03→19:08)
[2025-02-17] MEDS: Chlorhexidine Gluc Oral Rinse 15 ML MOUTHWASH BUCCAL ×3 (10:20→20:13)
[2025-02-17 11:07] LABS: Glucose, Whole Blood 262 mg/dL (60-115)
[2025-02-17] MEDS: Omeprazole/Na Bicarb Oral Susp 20 MG/10 ML UD Cup 40 MG PO ×2 (12:54→16:06)
--- NOTE | 2025-02-17 15:40 | P.PNIM_ITS ---
Subjective Subjective Date of Service: 02/17/25 Interval History: Seen and evaluated this morning more alert and interactive Tube feeding running On RA no other events Review of Systems Review of Systems: Yes all other systems are reviewed and are negative Physical Exam 2 Vital Signs: Vital Signs: Last Vital Signs Temp 97.6 F 02/17/25 10:55 Pulse 71 02/17/25 10:55 Resp 18 02/17/25 10:55 BP 142/58 H 02/17/25 12:55 Pulse Ox 98 02/17/25 10:55 O2 Del Method Room Air 02/17/25 10:55 O2 Flow Rate 2 02/14/25 19:00 FiO2 21 02/14/25 17:00 BMI result Body Mass Index 23.0 Const: Other: Constitutional : more awake, more interactive, not in distress Cardiovascular : no JVP, no lower extremity edema Respiratory : bilateral chest movement, not in resp distress Gastrointestinal: soft, lax, Non tender, NG tube in place Skin : Warm, Dry Neurological : more alert and interactive, open eyes to vocal stimuli, answers with yes\no, frail Objective Data Active Medications Amlodipine Besylate (Amlodipine Besylate 5 Mg Tablet) 5 mg G-TUBE DAILY KENYA; Protocol Last Admin: 02/17/25 10:00 Dose: 5 mg Documented By: KENN Atorvastatin Calcium (Atorvastatin Calcium 80 Mg Tablet) 80 mg G-TUBE BEDTIME [facility] Chlorhexidine Gluconate (Chlorhexidine Gluc Oral Rinse 15 Ml Mouthwash) 15 ml BUCCAL TID KENYA Last Admin: 02/17/25 10:20 Dose: 15 ml Documented By: KENN Clonidine HCl (Clonidine Hcl 0.1 Mg Tablet) 0.1 mg G-TUBE BID KENYA; Protocol Last Admin: 02/17/25 10:00 Dose: 0.1 mg Documented By: KENN Dextrose (Dextrose 50 % 25 Gm/50 Ml Syringe) 25 gm IVPUSH Q15M PRN; Protocol PRN Reason: per Hypoglycemia Standing Ord. Glucose (Glucose Gel 15 Gm Gel..Gram.) 15 gm PO Q15M PRN; Protocol PRN Reason: per Hypoglycemia Standing Ord. Hydralazine HCl (Hydralazine Hcl 20 Mg/Ml Vial) 10 mg IVPUSH Q4H PRN; Protocol PRN Reason: Hypertension Last Admin: 02/15/25 06:06 Dose: 10 mg Documented By: CHYNA Hydralazine HCl (Hydralazine Hcl 50 Mg Tablet) 50 mg G-TUBE QID [facility]; Protocol Last Admin: 02/17/25 12:55 Dose: 50 mg Documented By: KENN Insulin Human Lispro (Insulin Lispro 100 Unit/Ml 3 Ml Vial) 0 unit SUBCUT Q6H [facility]; Protocol Last Admin: 02/17/25 12:54 Dose: 6 unit Documented By: KENN Isosorbide Dinitrate (Isosorbide Dinitrate 20 Mg Tablet) 20 mg G-TUBE 0800,1300,1800 [facility]; Protocol Last Admin: 02/17/25 12:55 Dose: 20 mg Documented By: KENN Labetalol HCl (Labetalol Hcl 100 Mg Tablet) 100 mg G-TUBE DAILY [facility]; Protocol Last Admin: 02/17/25 10:02 Dose: 100 mg Documented By: KENN Levothyroxine Sodium (Levothyroxine Sodium 125 Mcg Tablet) 125 mcg G-TUBE DAILY@0600 [facility] Omeprazole (Omeprazole/Na Bicarb Oral Susp 20 Mg/10 Ml Ud Cup) 40 mg PO BID@0630,1630 [facility] Last Admin: 02/17/25 12:54 Dose: 40 mg Documented By: KENN Sodium Chloride (0.9 % Sodium Chloride Flush 3 Ml Syringe) 3 ml IVFLUSH QSHIFT [facility] Last Admin: 02/17/25 10:03 Dose: 3 ml Documented By: KENN Labs 02/17/25 06:44 02/17/25 06:44 Labs: Laboratory Results - last 24 hr 02/16/25 02/16/25 02/16/25 18:07 19:54 23:36 MCV MCH MCHC RDW Plt Count MPV Immature Gran % (Auto) Neut % (Auto) Lymph % (Auto) [place] % (Auto) Eos % (Auto) Baso % (Auto) Lymph # (Auto) [place] # (Auto) Eos # (Auto) Baso # (Auto) Abs Immat Gran (auto) Absolute Neuts (auto) Absolute Nucleated RBC Nucleated RBC % (auto) Anion Gap Estim Creat Clear Calc Estimated GFR POC Glucose 266 H 265 H 223 H Random Glucose Calcium 02/17/25 02/17/25 02/17/25 05:35 06:44 11:04 MCV 89.7 MCH 29.4 MCHC 32.8 RDW 13.6 Plt Count 226 MPV 10.8 Immature Gran % (Auto) 0.6 H Neut % (Auto) 82.4 H Lymph % (Auto) 5.0 L [place] % (Auto) 6.9 Eos % (Auto) 4.5 H Baso % (Auto) 0.6 Lymph # (Auto) 0.5 L [place] # (Auto) 0.7 Eos # (Auto) 0.4 Baso # (Auto) 0.1 Abs Immat Gran (auto) 0.06 H Absolute Neuts (auto) 8.2 Absolute Nucleated RBC 0.000 Nucleated RBC % (auto) 0.0 Anion Gap 19 Estim Creat Clear Calc 13.7 Estimated GFR 13 POC Glucose 239 H 262 H Random Glucose 268 H Calcium 9.3 Assessment and Plan (1) Pulmonary aspiration: Status: Acute (2) ESRD on hemodialysis: Status: Acute (3) Myopathy: Status: Acute (4) Renal failure: Status: Acute (5) Duodenal ulcer: Status: Acute (6) Acute on chronic anemia: Status: Acute Plan 79-year-old lady admitted with acute hypoxic respiratory failure requiring ventilatory support, likely secondary to acute on chronic combined systolic and diastolic congestive heart failure, improved with diuresis, extubated on 01/22/2025, further complicated by acute chronic CVA with significant encephalopathy, GI bleed. 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 improved Cardiology following continue antihypertensive regimen. Acute hypoxic respiratory failure secondary to pulmonary aspiration requiring ventilatory support REsolved, extubated on 02/14/2025. Healthcare proxy/family chose DNI\DNR Monitor End-stage renal disease on hemodialysis. Nephrology following, on dialysis monitor renal indices and urine output. diabetes mellitus subcutaneous insulin. Upper GI bleed with acute blood loss anemia secondary to duodenal ulcer requiring embolization continue PPI Prophylaxis: Compression therapy ACP: Discuss goals of care with HCP The patient will need overnight stay pending improvement in mentation, tolerance of diet vs advance goals of care discussion. Quality Stroke Does the patient have a stroke diagnosis?: Yes Reason for No Anti-thrombotic by Day Two: N/A - Med Ordered VTE Prior VTE?: No VTE Risk Level:: Medical - moderate - high VTE Device Contraindication: N/A - Device Ordered VTE Drug Contraindication: Treatment Not Tolerated
[2025-02-17 17:42] LABS: Glucose, Whole Blood 194 mg/dL (60-115)
[2025-02-17] MEDS: Atorvastatin Calcium 80 MG TABLET G-TUBE (20:06)
[2025-02-18] VITALS (11 sets, daily range): BP systolic 134–176; BP diastolic 51–72; PULSE 74–84; RESP 17–20; TEMP 36.3–37.6; O2SAT 95–97
[2025-02-18 00:21] LABS: Glucose, Whole Blood 208 mg/dL (60-115)
[2025-02-18] MEDS: Insulin Lispro 100 UNIT/ML 3 ML VIAL SUBCUT ×4 (00:43→17:11)
[2025-02-18 05:10] LABS: Glucose, Whole Blood 201 mg/dL (60-115)
[2025-02-18] MEDS: Omeprazole/Na Bicarb Oral Susp 20 MG/10 ML UD Cup 40 MG PO (05:11)
[2025-02-18] MEDS: Levothyroxine Sodium 125 MCG TABLET G-TUBE (05:11)
[2025-02-18] MEDS: Labetalol HCL 100 MG TABLET G-TUBE (08:55)
[2025-02-18] MEDS: Isosorbide Dinitrate 20 MG TABLET G-TUBE ×3 (08:57→17:10)
[2025-02-18] MEDS: hydrALAZINE HCl 50 MG TABLET G-TUBE ×4 (08:57→23:46)
[2025-02-18] MEDS: amLODIPine Besylate 5 MG TABLET G-TUBE (08:57)
[2025-02-18] MEDS: cloNIDine HCL 0.1 MG TABLET G-TUBE ×2 (08:57→23:46)
[2025-02-18] MEDS: 0.9 % Sodium Chloride Flush 3 ML SYRINGE IVFLUSH ×2 (09:27→23:47)
--- NOTE | 2025-02-18 09:59 | P.CONGS_ITS ---
History of Present Illness Consult details Consult date: 02/18/25 Requesting physician: Alma Christiansen Narrative: 79-year-old female patient with multiple medical problems currently requiring tube feeding therefore surgical consultation was requested for possible PEG placement. She was admitted with acute hypoxic respiratory failure requiring ventilatory support in his history of acute/chronic systolic and diastolic congestive heart failure, CVA with significant encephalopathy, end-stage renal disease on hemodialysis, diabetes mellitus, upper GI bleed with acute blood loss anemia secondary to duodenal ulcer requiring embolization. The patient was recently made DNR DNI. Review of Systems 2 Review of Systems: Yes Unobtainable due to mental status PMFSH Past Medical History Medical History (Updated 02/12/25 @ 10:35 by Taco Cobb MD) Dementia Right hemiparesis Cerebrovascular accident Toe amputee Mild cognitive impairment Tremors of nervous system Obstructive sleep apnea C. difficile colitis Septic shock Arthritis Hyperlipidemia CKD (chronic kidney disease) Hypothyroid HTN (hypertension) CAD (coronary artery disease) Diabetes Amputation of toe H/O nephrolithotomy with removal of calculi Family History Family History Mother FH: lung cancer Father No problems noted. Family/Other Heart disease Family/Other Bladder cancer Surgical History Surgical History Hx of heart artery stent Social History Social History Household Members: Family Housing: House Do you presently have visiting nurse or other home services: Yes ([facility]) Alcohol intake: never Patient Tobacco Use Status: Never used Tobacco Advance Directives Date on File: 01/28/25 Meds Allergies Allergy/AdvReac Type Severity Reaction Status Date / Time pioglitazone [From Actos] Allergy Severe Anaphylaxis Verified 01/19/25 07:00 Active Medications: Current Medications Amlodipine Besylate (Amlodipine Besylate 5 Mg Tablet) 5 mg G-TUBE DAILY KENYA; Protocol Last Admin: 02/18/25 08:57 Dose: 5 mg Atorvastatin Calcium (Atorvastatin Calcium 80 Mg Tablet) 80 mg G-TUBE BEDTIME KENYA Last Admin: 02/17/25 20:06 Dose: 80 mg Chlorhexidine Gluconate (Chlorhexidine Gluc Oral Rinse 15 Ml Mouthwash) 15 ml BUCCAL TID KENYA Last Admin: 02/17/25 20:13 Dose: 15 ml Clonidine HCl (Clonidine Hcl 0.1 Mg Tablet) 0.1 mg G-TUBE BID [facility]; Protocol Last Admin: 02/18/25 08:57 Dose: 0.1 mg Dextrose (Dextrose 50 % 25 Gm/50 Ml Syringe) 25 gm IVPUSH Q15M PRN; Protocol PRN Reason: per Hypoglycemia Standing Ord. Glucose (Glucose Gel 15 Gm Gel..Gram.) 15 gm PO Q15M PRN; Protocol PRN Reason: per Hypoglycemia Standing Ord. Hydralazine HCl (Hydralazine Hcl 20 Mg/Ml Vial) 10 mg IVPUSH Q4H PRN; Protocol PRN Reason: Hypertension Last Admin: 02/15/25 06:06 Dose: 10 mg Hydralazine HCl (Hydralazine Hcl 50 Mg Tablet) 50 mg G-TUBE QID [facility]; Protocol Last Admin: 02/18/25 08:57 Dose: 50 mg Insulin Human Lispro (Insulin Lispro 100 Unit/Ml 3 Ml Vial) 0 unit SUBCUT Q6H [facility]; Protocol Last Admin: 02/18/25 05:11 Dose: 4 unit Isosorbide Dinitrate (Isosorbide Dinitrate 20 Mg Tablet) 20 mg G-TUBE 0800,1300,1800 [facility]; Protocol Last Admin: 02/18/25 08:57 Dose: 20 mg Labetalol HCl (Labetalol Hcl 100 Mg Tablet) 100 mg G-TUBE DAILY [facility]; Protocol Last Admin: 02/18/25 08:55 Dose: 100 mg Levothyroxine Sodium (Levothyroxine Sodium 125 Mcg Tablet) 125 mcg G-TUBE DAILY@0600 [facility] Last Admin: 02/18/25 05:11 Dose: 125 mcg Omeprazole (Omeprazole/Na Bicarb Oral Susp 20 Mg/10 Ml Ud Cup) 40 mg PO BID@0630,1630 [facility] Last Admin: 02/18/25 05:11 Dose: 40 mg Sodium Chloride (0.9 % Sodium Chloride Flush 3 Ml Syringe) 3 ml IVFLUSH QSHIFT [facility] Last Admin: 02/18/25 09:27 Dose: 3 ml Home Medications ?Medication ?Instructions ?Recorded ?Confirmed ?Last Taken ?Type alpha lipoic acid 200 mg capsule 600 mg PO BEDTIME 03/13/22 01/19/25 Unknown History bumetanide 1 mg tablet 1 mg PO Q48H 03/13/22 01/19/25 Unknown History hydralazine 50 mg tablet 75 mg PO QID 03/13/22 01/19/25 Unknown History ascorbic acid (vitamin C) 250 mg 250 mg PO BID 01/13/23 01/19/25 Unknown History tablet mecobalamin (vitamin B12) 1,000 1,000 mcg PO DAILY 01/13/23 01/19/25 Unknown History mcg chewable tablet omeprazole 20 mg capsule,delayed 40 mg PO DAILY@0630 01/13/23 01/19/25 Unknown History release sodium bicarbonate 650 mg tablet 1,300 mg PO TID 01/13/23 01/19/25 Unknown History amlodipine 10 mg tablet 10 mg PO DAILY 04/10/24 01/19/25 Unknown History atorvastatin 20 mg tablet 80 mg PO BEDTIME 04/10/24 01/19/25 Unknown History gabapentin 600 mg tablet 600 mg PO BEDTIME 04/10/24 01/19/25 Unknown History icosapent ethyl 1 gram capsule 1 g PO BID 08/30/24 01/19/25 Unknown History (Vascepa) acetaminophen 325 mg tablet 650 mg PO Q6H PRN Pain/Fever 01/19/25 01/19/25 Unknown History apixaban 2.5 mg tablet (Eliquis) 2.5 mg PO BID 01/19/25 01/19/25 Unknown History bisacodyl 10 mg rectal suppository 10 mg NC DAILY PRN Constipation 01/19/25 01/19/25 Unknown History cholecalciferol (vitamin D3) 50 50 mcg PO DAILY 01/19/25 01/19/25 Unknown History mcg (2,000 unit) tablet (Vitamin D3) clonidine HCl 0.1 mg tablet 0.1 mg PO BID 01/19/25 01/19/25 Unknown History docusate sodium 100 mg capsule 100 mg PO DAILY 01/19/25 01/19/25 Unknown History ferrous sulfate 137 mg (45 mg 137 mg PO DAILY 01/19/25 01/19/25 Unknown History iron) tablet,extended release insulin glargine 100 unit/mL (3 20 unit subcut BEDTIME 01/19/25 01/19/25 Unknown History mL) subcutaneous pen (Lantus Solostar U-100 Insulin) insulin lispro 100 unit/mL 1 sliding scale dose subcut 01/19/25 01/19/25 Unknown History subcutaneous pen (Humalog KwikPen USEASDIRECTD (U-100) Insulin) labetalol 100 mg tablet 100 mg PO DAILY 01/19/25 01/19/25 Unknown History levothyroxine 125 mcg tablet 125 mcg PO DAILY@0600 01/19/25 01/19/25 Unknown History magnesium hydroxide 400 mg/5 mL 5 ml PO DAILY PRN Constipation 01/19/25 01/19/25 Unknown History oral suspension (Milk of Magnesia) magnesium oxide 400 mg PO DAILY 01/19/25 01/19/25 Unknown History polyethylene glycol 3350 17 17 g PO DAILY 01/19/25 01/19/25 Unknown History gram/dose oral powder (Miralax) sennosides 8.6 mg tablet (senna) 17.2 mg PO BEDTIME Constipation 01/19/25 01/19/25 Unknown History Physical Exam 2 Vital Signs: Vital Signs: Last Vital Signs Temp 97.4 F 02/18/25 07:45 Pulse 84 02/18/25 08:55 Resp 17 02/18/25 07:45 BP 176/64 H 02/18/25 08:57 Pulse Ox 95 02/18/25 07:45 O2 Del Method Room Air 02/18/25 07:45 O2 Flow Rate 2 02/14/25 19:00 FiO2 21 02/14/25 17:00 BMI result Body Mass Index 23.0 Const: General: lethargic Nutritional Appearance: average body habitus O rientation/consciousness: lethargic HEENT: Other: Nasogastric feeding tube in place, functioning Resp: Effort & Inspection: no audible wheezes, no cough and no respiratory distress GI: Other: Soft and nondistended, no apparent tenderness Results Labs 02/17/25 06:44 02/17/25 06:44 Labs: Abnormal lab results 02/17/25 02/17/25 02/18/25 Range/Units 11:04 17:36 00:17 POC Glucose 262 H 194 H 208 H (60-115) mg/dL 02/18/25 Range/Units 05:05 POC Glucose 201 H (60-115) mg/dL Urine 01/19/25 Range/Units 07:18 Urine Color Yellow Urine Appearance Clear Urine pH 6.5 (5.0-9.0) Ur Specific [place] 1.025 (1.005-1.025) Urine Protein >=1000 (4+) H (Neg-Trace) mg/dL Urine Glucose (UA) 100 H (Negative) mg/dL All other labs normal. Assessment and Plan (1) Respiratory failure: Status: Acute (2) Metabolic encephalopathy: Status: Acute (3) Cerebrovascular accident: Status: Acute Plan 79-year-old female patient requiring tube feeds, surgical consultation requested regarding PEG tube placement. Patient is currently DNR DNI and family is considering goals of care. I will discuss with Dr. Lorenzo in the a.m. Procedures Date of Service Date of Service: 02/18/25
[2025-02-18 11:14] LABS: Glucose, Whole Blood 228 mg/dL (60-115)
--- NOTE | 2025-02-18 11:25 | P.PNIM_ITS ---
Subjective Subjective Date of Service: 02/18/25 Interval History: Seen and evaluated this morning more alert and interactive Tube feeding running On RA no other events Review of Systems Review of Systems: Yes all other systems are reviewed and are negative Physical Exam 2 Vital Signs: Vital Signs: Last Vital Signs Temp 98.1 F 02/18/25 11:06 Pulse 74 02/18/25 11:06 Resp 18 02/18/25 11:06 BP 134/51 L 02/18/25 11:06 Pulse Ox 97 02/18/25 11:06 O2 Del Method Room Air 02/18/25 11:06 O2 Flow Rate 2 02/14/25 19:00 FiO2 21 02/14/25 17:00 BMI result Body Mass Index 23.0 Const: Other: Constitutional : more awake, more interactive, not in distress Cardiovascular : no JVP, no lower extremity edema Respiratory : bilateral chest movement, not in resp distress Gastrointestinal: soft, lax, Non tender, NG tube in place Skin : Warm, Dry Neurological : more alert and interactive, open eyes to vocal stimuli, answers with yes\no, frail Objective Data Active Medications Amlodipine Besylate (Amlodipine Besylate 5 Mg Tablet) 5 mg G-TUBE DAILY KENYA; Protocol Last Admin: 02/18/25 08:57 Dose: 5 mg Documented By: ASHLEE Atorvastatin Calcium (Atorvastatin Calcium 80 Mg Tablet) 80 mg G-TUBE BEDTIME [facility] Last Admin: 02/17/25 20:06 Dose: 80 mg Documented By: LOULOU Chlorhexidine Gluconate (Chlorhexidine Gluc Oral Rinse 15 Ml Mouthwash) 15 ml BUCCAL TID [facility] Last Admin: 02/18/25 11:12 Dose: Not Given Documented By: MICHELE Non-Admin Reason: patient not follwoing commands Clonidine HCl (Clonidine Hcl 0.1 Mg Tablet) 0.1 mg G-TUBE BID [facility]; Protocol Last Admin: 02/18/25 08:57 Dose: 0.1 mg Documented By: ASHLEE Dextrose (Dextrose 50 % 25 Gm/50 Ml Syringe) 25 gm IVPUSH Q15M PRN; Protocol PRN Reason: per Hypoglycemia Standing Ord. Glucose (Glucose Gel 15 Gm Gel..Gram.) 15 gm PO Q15M PRN; Protocol PRN Reason: per Hypoglycemia Standing Ord. Hydralazine HCl (Hydralazine Hcl 20 Mg/Ml Vial) 10 mg IVPUSH Q4H PRN; Protocol PRN Reason: Hypertension Last Admin: 02/15/25 06:06 Dose: 10 mg Documented By: CHYNA Hydralazine HCl (Hydralazine Hcl 50 Mg Tablet) 50 mg G-TUBE QID [facility]; Protocol Last Admin: 02/18/25 08:57 Dose: 50 mg Documented By: ASHLEE Insulin Human Lispro (Insulin Lispro 100 Unit/Ml 3 Ml Vial) 0 unit SUBCUT Q6H [facility]; Protocol Last Admin: 02/18/25 05:11 Dose: 4 unit Documented By: LOULOU Isosorbide Dinitrate (Isosorbide Dinitrate 20 Mg Tablet) 20 mg G-TUBE 0800,1300,1800 [facility]; Protocol Last Admin: 02/18/25 08:57 Dose: 20 mg Documented By: ASHLEE Labetalol HCl (Labetalol Hcl 100 Mg Tablet) 100 mg G-TUBE DAILY [facility]; Protocol Last Admin: 02/18/25 08:55 Dose: 100 mg Documented By: ASHLEE Levothyroxine Sodium (Levothyroxine Sodium 125 Mcg Tablet) 125 mcg G-TUBE DAILY@0600 [facility] Last Admin: 02/18/25 05:11 Dose: 125 mcg Documented By: LOULOU Omeprazole (Omeprazole/Na Bicarb Oral Susp 20 Mg/10 Ml Ud Cup) 40 mg PO BID@0630,1630 [facility] Last Admin: 02/18/25 05:11 Dose: 40 mg Documented By: LOULOU Sodium Chloride (0.9 % Sodium Chloride Flush 3 Ml Syringe) 3 ml IVFLUSH QSHIFT [facility] Last Admin: 02/18/25 09:27 Dose: 3 ml Documented By: ASHLEE Labs 02/17/25 06:44 02/17/25 06:44 Labs: Laboratory Results - last 24 hr 02/17/25 02/18/25 02/18/25 17:36 00:17 05:05 POC Glucose 194 H 208 H 201 H 02/18/25 11:11 POC Glucose 228 H Assessment and Plan (1) Pulmonary aspiration: Status: Acute (2) ESRD on hemodialysis: Status: Acute (3) Duodenal ulcer: Status: Acute (4) Acute on chronic anemia: Status: Acute (5) UGIB (upper gastrointestinal bleed): Status: Acute Plan 79-year-old lady admitted with acute hypoxic respiratory failure requiring ventilatory support, likely secondary to acute on chronic combined systolic and diastolic congestive heart failure, improved with diuresis, extubated on 01/22/2025, further complicated by acute chronic CVA with significant encephalopathy, GI bleed. 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 improved Cardiology following continue antihypertensive regimen. Acute hypoxic respiratory failure secondary to pulmonary aspiration requiring ventilatory support REsolved, extubated on 02/14/2025. Healthcare proxy/family chose DNI\DNR Monitor End-stage renal disease on hemodialysis. Nephrology following, on dialysis monitor renal indices and urine output. diabetes mellitus subcutaneous insulin. Upper GI bleed with acute blood loss anemia secondary to duodenal ulcer requiring embolization continue PPI Prophylaxis: Compression therapy ACP: Discussed goals of care with HCP. They would like to continue therapy and give the patient a chance to recover understand she might need PEG tube placement for feeding and extensive PT once she is more interactive and aware. confirmed DNR\DNI status. The patient will need overnight stay pending improvement in mentation, tolerance of diet Quality Stroke Does the patient have a stroke diagnosis?: Yes Reason for No Anti-thrombotic by Day Two: N/A - Med Ordered VTE Prior VTE?: No VTE Risk Level:: Medical - moderate - high VTE Device Contraindication: N/A - Device Ordered VTE Drug Contraindication: Treatment Not Tolerated
[2025-02-18 17:23] LABS: Glucose, Whole Blood 241 mg/dL (60-115)
[2025-02-18] MEDS: Atorvastatin Calcium 80 MG TABLET G-TUBE (23:45)
[2025-02-19] VITALS (7 sets, daily range): BP systolic 123–171; BP diastolic 52–74; PULSE 78–91; RESP 14–24; TEMP 36–37.4; O2SAT 96–99
[2025-02-19] MEDS: Insulin Lispro 100 UNIT/ML 3 ML VIAL SUBCUT ×5 (00:02→23:56)
[2025-02-19 00:10] LABS: Glucose, Whole Blood 211 mg/dL (60-115)
[2025-02-19] MEDS: Omeprazole/Na Bicarb Oral Susp 20 MG/10 ML UD Cup 40 MG PO ×2 (04:46→18:04)
[2025-02-19] MEDS: Levothyroxine Sodium 125 MCG TABLET G-TUBE (04:47)
[2025-02-19 06:19] LABS: Glucose, Whole Blood 215 mg/dL (60-115)
[2025-02-19 07:02] LABS: MANUAL DIFF FLAG NO
[2025-02-19 07:09] LABS: Basophils Absolute Auto 0.1 X10*3/uL (0.0-0.2); Basophils Percent Auto 0.6 % (0-2); Eosinophils Absolute Auto 0.6 X10*3/uL (0.0-0.4); Eosinophils Percent Auto 6.9 % (0-4); Hematocrit 24.6 % (37.0-47.0); Hemoglobin 8.1 g/dl (12.0-16.0); Imm Gran Abs Auto 0.09 X10*3/uL (0.00-0.03); Imm Gran Pct Auto 1.1 % (0.0-0.4); Lymphocytes Absolute Auto 0.5 X10*3/uL (1.2-4.9); Lymphocytes Percent Auto 6.1 % (20-40); Mean Corpuscular HGB Conc 32.9 g/dl (31.0-35.0); Mean Corpuscular Hemoglobin 29.2 pg (27.0-33.0); Mean Corpuscular Volume 88.8 fL (80.0-98.0); Mean Platelet Volume 11.2 fL (9.4-12.3); Monocytes Absolute Auto 0.5 X10*3/uL (0.1-1.2); Monocytes Percent Auto 6.4 % (2-11); Neutrophils Absolute Auto 6.3 x10*3/uL (2.0-8.3); Neutrophils Percent Auto 78.9 % (45-73); Platelet Count 240 X10*3/uL (160-400); Red Blood Count 2.77 X10*6/uL (4.20-5.50); Red Cell Distribution Width 13.4 % (11.0-16.0)
[2025-02-19 07:30] LABS: Anion Gap 22 (12-20); Blood Urea Nitrogen 115 mg/dL (9-16); Calcium 9.1 mg/dL (8.4-10.2); Carbon Dioxide 24 mmol/L (22-29); Chloride 91 mmol/L (96-108); Glucose Random 229 mg/dL (60-115); Potassium 4.5 mmol/L (3.3-5.1); Sodium 132 mmol/L (135-145)
[2025-02-19 07:37] LABS: Creatinine Clr Calc Pharmacy 8.5; Estimated Glomerular Filt Rate 8
[2025-02-19 07:39] LABS: Glucose, Whole Blood 224 mg/dL (60-115)
--- NOTE | 2025-02-19 10:27 | P.PNNP_ITS ---
Subjective Subjective Date of Service: 02/20/25 Interval history: Events noted Unable to give any history Physical Exam 2 Vital Signs: Vital Signs: Last Vital Signs Temp 98.5 F 02/19/25 08:00 Pulse 82 02/19/25 08:00 Resp 22 H 02/19/25 08:00 BP 171/68 H 02/19/25 08:00 Pulse Ox 99 02/19/25 08:00 O2 Del Method Room Air 02/19/25 08:00 O2 Flow Rate 2 02/14/25 19:00 FiO2 21 02/14/25 17:00 BMI result Body Mass Index 23.0 Const: General: ill appearing Neck: Neck: Yes supple Resp: Auscultation: clear to auscultation bilaterally Cardio: Palpation: no palpable S3 Heart sounds: no rubs GI: Palpation (GI): Soft to palpation Auscultation: normal bowel sounds Neuro: Motor exam (neuro): no asterixis Objective Data Labs 02/20/25 06:35 02/20/25 06:35 Labs: Laboratory Results - last 24 hr 02/18/25 02/18/25 02/19/25 11:11 17:11 00:00 WBC RBC Hgb Hct MCV MCH MCHC RDW Plt Count MPV Immature Gran % (Auto) Neut % (Auto) Lymph % (Auto) [place] % (Auto) Eos % (Auto) Baso % (Auto) Lymph # (Auto) [place] # (Auto) Eos # (Auto) Baso # (Auto) Abs Immat Gran (auto) Absolute Neuts (auto) Absolute Nucleated RBC Nucleated RBC % (auto) Sodium Potassium Chloride Carbon Dioxide Anion Gap BUN Creatinine Estim Creat Clear Calc Estimated GFR POC Glucose 228 H 241 H 211 H Random Glucose Calcium 02/19/25 02/19/25 02/19/25 06:14 06:16 07:32 WBC 8.0 RBC 2.77 L Hgb 8.1 L Hct 24.6 L MCV 88.8 MCH 29.2 MCHC 32.9 RDW 13.4 Plt Count 240 MPV 11.2 Immature Gran % (Auto) 1.1 H Neut % (Auto) 78.9 H Lymph % (Auto) 6.1 L [place] % (Auto) 6.4 Eos % (Auto) 6.9 H Baso % (Auto) 0.6 Lymph # (Auto) 0.5 L [place] # (Auto) 0.5 Eos # (Auto) 0.6 H Baso # (Auto) 0.1 Abs Immat Gran (auto) 0.09 H Absolute Neuts (auto) 6.3 Absolute Nucleated RBC 0.000 Nucleated RBC % (auto) 0.0 Sodium 132 L Potassium 4.5 Chloride 91 L Carbon Dioxide 24 Anion Gap 22 H BUN 115 H Creatinine 5.41 H* Estim Creat Clear Calc 8.5 Estimated GFR 8 POC Glucose 215 H 224 H Random Glucose 229 H Calcium 9.1 Microbiology Microbiology Results: Microbiology 01/19/25 07:38 Blood - Venous Blood Culture - Final No growth after 5 days. 01/19/25 07:14 Blood - Venous Blood Culture - Final No growth after 5 days. Procedures Date of Service Date of Service: 02/20/25 Assessment & Plan Assessment and plan (1) Acute kidney injury superimposed on CKD: Status: Acute Assessment and Plan: 79-year-old woman with acute kidney injury superimposed on chronic kidney disease due to tubular injury Urine sediments bland therefore glomerular nephritis or interstitial disease seem less likely. Shall keep on MWF HD Continue rest of current medication regimen Time Spent With Patient Time: Total time managing care of this patient today ____ minutes. Progress Note: Quality Stroke Does the patient have a stroke diagnosis?: Yes Reason for No Anti-thrombotic by Day Two: N/A - Med Ordered
--- NOTE | 2025-02-19 11:29 | MHC.CLN ---
F/U PT WITH NGT IN PLACE-TF CONTINUES PT WITH NPO DIET ORDER-WILL RE-START TF WHICH IS CURRENTLY RUNNING PER NSG PT TOLERATING TF WITHOUT ISSUE CONTINUE NEPRO AT MAX GOAL RATE 40ML/HR PROVIDES 1728KCALS (32.6KCALS/KG BASED ON ABW), 78G PROTEIN (1.5G/KG), 698 WATER FROM FORMULA WILL HOLD FREE WATER FLUSHES AT THIS TIME R/T LOW SERUM NA MONITOR LYTES AND TF TOLERANCE
--- NOTE | 2025-02-19 12:08 | P.PNIM_ITS ---
Subjective Subjective Date of Service: 02/19/25 Interval History: Seen and evaluated this morning more alert but interactive Tube feeding running On RA no other events Review of Systems Review of Systems: Yes all other systems are reviewed and are negative Physical Exam 2 Vital Signs: Vital Signs: Last Vital Signs Temp 98.5 F 02/19/25 08:00 Pulse 82 02/19/25 08:00 Resp 22 H 02/19/25 08:00 BP 171/68 H 02/19/25 08:00 Pulse Ox 99 02/19/25 08:00 O2 Del Method Room Air 02/19/25 08:00 O2 Flow Rate 2 02/14/25 19:00 FiO2 21 02/14/25 17:00 BMI result Body Mass Index 23.0 Const: Other: Constitutional : more awake, more interactive, not in distress Cardiovascular : no JVP, no lower extremity edema Respiratory : bilateral chest movement, not in resp distress Gastrointestinal: soft, lax, Non tender, NG tube in place Skin : Warm, Dry Neurological : more alert and interactive, open eyes to vocal stimuli, answers with yes\no, frail Objective Data Active Medications Amlodipine Besylate (Amlodipine Besylate 5 Mg Tablet) 5 mg G-TUBE DAILY [facility]; Protocol Last Admin: 02/18/25 08:57 Dose: 5 mg Documented By: ASHLEE Atorvastatin Calcium (Atorvastatin Calcium 80 Mg Tablet) 80 mg G-TUBE BEDTIME [facility] Last Admin: 02/18/25 23:45 Dose: 80 mg Documented By: MARIETTA Chlorhexidine Gluconate (Chlorhexidine Gluc Oral Rinse 15 Ml Mouthwash) 15 ml BUCCAL TID [facility] Last Admin: 02/18/25 23:47 Dose: Not Given Documented By: MARIETTA Non-Admin Reason: pt unable to follow commands Clonidine HCl (Clonidine Hcl 0.1 Mg Tablet) 0.1 mg G-TUBE BID [facility]; Protocol Last Admin: 02/18/25 23:46 Dose: 0.1 mg Documented By: MARIETTA Dextrose (Dextrose 50 % 25 Gm/50 Ml Syringe) 25 gm IVPUSH Q15M PRN; Protocol PRN Reason: per Hypoglycemia Standing Ord. Glucose (Glucose Gel 15 Gm Gel..Gram.) 15 gm PO Q15M PRN; Protocol PRN Reason: per Hypoglycemia Standing Ord. Hydralazine HCl (Hydralazine Hcl 20 Mg/Ml Vial) 10 mg IVPUSH Q4H PRN; Protocol PRN Reason: Hypertension Last Admin: 02/15/25 06:06 Dose: 10 mg Documented By: CHYNA Hydralazine HCl (Hydralazine Hcl 50 Mg Tablet) 50 mg G-TUBE QID [facility]; Protocol Last Admin: 02/18/25 23:46 Dose: 50 mg Documented By: MARIETTA Insulin Human Lispro (Insulin Lispro 100 Unit/Ml 3 Ml Vial) 0 unit SUBCUT Q6H [facility]; Protocol Last Admin: 02/19/25 06:22 Dose: 4 unit Documented By: MARIETTA Isosorbide Dinitrate (Isosorbide Dinitrate 20 Mg Tablet) 20 mg G-TUBE 0800,1300,1800 [facility]; Protocol Last Admin: 02/18/25 17:10 Dose: 20 mg Documented By: MICHELE Labetalol HCl (Labetalol Hcl 100 Mg Tablet) 100 mg G-TUBE DAILY [facility]; Protocol Last Admin: 02/18/25 08:55 Dose: 100 mg Documented By: ASHLEE Levothyroxine Sodium (Levothyroxine Sodium 125 Mcg Tablet) 125 mcg G-TUBE DAILY@0600 [facility] Last Admin: 02/19/25 04:47 Dose: 125 mcg Documented By: MARIETTA Omeprazole (Omeprazole/Na Bicarb Oral Susp 20 Mg/10 Ml Ud Cup) 40 mg PO BID@0630,1630 [facility] Last Admin: 02/19/25 04:46 Dose: 40 mg Documented By: MARIETTA Sodium Chloride (0.9 % Sodium Chloride Flush 3 Ml Syringe) 3 ml IVFLUSH QSHIFT [facility] Last Admin: 02/19/25 11:56 Dose: Not Given Documented By: TITI Non-Admin Reason: Off unit: Dialysis Labs 02/19/25 06:14 02/19/25 06:14 Labs: Laboratory Results - last 24 hr 02/18/25 02/19/25 02/19/25 17:11 00:00 06:14 MCV 88.8 MCH 29.2 MCHC 32.9 RDW 13.4 Plt Count 240 MPV 11.2 Immature Gran % (Auto) 1.1 H Neut % (Auto) 78.9 H Lymph % (Auto) 6.1 L [place] % (Auto) 6.4 Eos % (Auto) 6.9 H Baso % (Auto) 0.6 Lymph # (Auto) 0.5 L [place] # (Auto) 0.5 Eos # (Auto) 0.6 H Baso # (Auto) 0.1 Abs Immat Gran (auto) 0.09 H Absolute Neuts (auto) 6.3 Absolute Nucleated RBC 0.000 Nucleated RBC % (auto) 0.0 Anion Gap 22 H Estim Creat Clear Calc 8.5 Estimated GFR 8 POC Glucose 241 H 211 H Random Glucose 229 H Calcium 9.1 02/19/25 02/19/25 06:16 07:32 MCV MCH MCHC RDW Plt Count MPV Immature Gran % (Auto) Neut % (Auto) Lymph % (Auto) [place] % (Auto) Eos % (Auto) Baso % (Auto) Lymph # (Auto) [place] # (Auto) Eos # (Auto) Baso # (Auto) Abs Immat Gran (auto) Absolute Neuts (auto) Absolute Nucleated RBC Nucleated RBC % (auto) Anion Gap Estim Creat Clear Calc Estimated GFR POC Glucose 215 H 224 H Random Glucose Calcium Assessment and Plan (1) Pulmonary aspiration: Status: Acute (2) ESRD on hemodialysis: Status: Acute (3) Myopathy: Status: Acute (4) Renal failure: Status: Acute (5) Duodenal ulcer: Status: Acute (6) Acute on chronic anemia: Status: Acute Plan 79-year-old lady admitted with acute hypoxic respiratory failure requiring ventilatory support, likely secondary to acute on chronic combined systolic and diastolic congestive heart failure, improved with diuresis, extubated on 01/22/2025, further complicated by acute chronic CVA with significant encephalopathy, GI bleed. 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 improved Cardiology following continue antihypertensive regimen. Acute hypoxic respiratory failure secondary to pulmonary aspiration requiring ventilatory support REsolved, extubated on 02/14/2025. Healthcare proxy/family chose DNI\DNR Monitor End-stage renal disease on hemodialysis. Nephrology following, on dialysis monitor renal indices and urine output. diabetes mellitus subcutaneous insulin. Upper GI bleed with acute blood loss anemia secondary to duodenal ulcer requiring embolization continue PPI Prophylaxis: Compression therapy ACP: Discussed goals of care with HCP. They would like to continue therapy and give the patient a chance to recover understand she might need PEG tube placement for feeding and extensive PT once she is more interactive and aware. confirmed DNR\DNI status. The patient will need overnight stay pending improvement in mentation, tolerance of diet Quality Stroke Does the patient have a stroke diagnosis?: Yes Reason for No Anti-thrombotic by Day Two: N/A - Med Ordered VTE Prior VTE?: No VTE Risk Level:: Medical - moderate - high VTE Device Contraindication: N/A - Device Ordered VTE Drug Contraindication: Treatment Not Tolerated
--- NOTE | 2025-02-19 12:23 | MHC.CM.PN ---
EMR REVIEWED, PT W/NEW LEFT SIDED CVA, HF, AHRFD/T PULOMONARY ASPIRATION S/P VENTED IN ICU, PT STEP DOWN FROM ICU 02/15. PER HSOPITALIST ANTIC PT WILL HAVE PEG TUBE PLACED PRIOR TO DC, PT CURRENTLY ON HD MWF AND WILL LIKELY NEED NEW OUTPT HD ON DC, QIANA GAMBINOW UPDATED AND UNABLE TO ACCOMMODATE PEG TUBE/HD, PER P.T. EVAL REHAB POTENTIAL IS POOR, REF EXPANDED TO [facility] D/T LIKELY NEED FOR HD, CM WILL FOLLOW UP W/FAMILY, NO PLAN FOR DC AT THIS TIME, CM WILL CONT TO FOLLOW DC NEEDS.
[2025-02-19 13:37] LABS: Glucose, Whole Blood 276 mg/dL (60-115)
[2025-02-19] MEDS: amLODIPine Besylate 5 MG TABLET G-TUBE (13:38)
[2025-02-19] MEDS: Labetalol HCL 100 MG TABLET G-TUBE (13:39)
[2025-02-19] MEDS: Isosorbide Dinitrate 20 MG TABLET G-TUBE ×2 (13:39→18:04)
[2025-02-19] MEDS: hydrALAZINE HCl 50 MG TABLET G-TUBE ×3 (13:39→20:19)
[2025-02-19] MEDS: cloNIDine HCL 0.1 MG TABLET G-TUBE ×2 (13:40→20:19)
[2025-02-19 17:48] LABS: Glucose, Whole Blood 279 mg/dL (60-115)
[2025-02-19] MEDS: 0.9 % Sodium Chloride Flush 3 ML SYRINGE IVFLUSH ×2 (18:05→23:57)
[2025-02-19] MEDS: Atorvastatin Calcium 80 MG TABLET G-TUBE (20:19)
[2025-02-19] MEDS: Chlorhexidine Gluc Oral Rinse 15 ML MOUTHWASH BUCCAL (20:23)
[2025-02-19 23:46] LABS: Glucose, Whole Blood 187 mg/dL (60-115)
[2025-02-20 03:27] VITALS: BP 153/70; PULSE 82; RESP 20; TEMP 36.8; O2SAT 96
[2025-02-20] MEDS: Omeprazole/Na Bicarb Oral Susp 20 MG/10 ML UD Cup 40 MG PO ×2 (05:50→17:54)
[2025-02-20] MEDS: Insulin Lispro 100 UNIT/ML 3 ML VIAL SUBCUT ×3 (05:50→17:54)
[2025-02-20] MEDS: Levothyroxine Sodium 125 MCG TABLET G-TUBE (05:50)
[2025-02-20 05:56] LABS: Glucose, Whole Blood 187 mg/dL (60-115)
[2025-02-20 06:47] LABS: MANUAL DIFF FLAG NO
[2025-02-20 06:54] LABS: Basophils Absolute Auto 0.1 X10*3/uL (0.0-0.2); Basophils Percent Auto 0.6 % (0-2); Eosinophils Absolute Auto 0.4 X10*3/uL (0.0-0.4); Eosinophils Percent Auto 4.4 % (0-4); Hematocrit 23.7 % (37.0-47.0); Hemoglobin 8.1 g/dl (12.0-16.0); Imm Gran Pct Auto 1.2 % (0.0-0.4); Lymphocytes Absolute Auto 0.6 X10*3/uL (1.2-4.9); Lymphocytes Percent Auto 7.3 % (20-40); Mean Corpuscular HGB Conc 34.2 g/dl (31.0-35.0); Mean Corpuscular Volume 87.8 fL (80.0-98.0); Mean Platelet Volume 10.4 fL (9.4-12.3); Monocytes Absolute Auto 0.6 X10*3/uL (0.1-1.2); Monocytes Percent Auto 7.3 % (2-11); Neutrophils Absolute Auto 6.6 x10*3/uL (2.0-8.3); Neutrophils Percent Auto 79.2 % (45-73); Platelet Count 240 X10*3/uL (160-400); Red Cell Distribution Width 13.5 % (11.0-16.0); White Blood Count 8.4 X10*3/uL (4.8-10.8)
[2025-02-20 07:07] LABS: Anion Gap 19 (12-20); Blood Urea Nitrogen 72 mg/dL (9-16); Calcium 9.2 mg/dL (8.4-10.2); Carbon Dioxide 26 mmol/L (22-29); Chloride 94 mmol/L (96-108); Creatinine Clr Calc Pharmacy 12.3; Estimated Glomerular Filt Rate 12; Glucose Random 215 mg/dL (60-115); Potassium 4.3 mmol/L (3.3-5.1); Sodium 135 mmol/L (135-145)
[2025-02-20 07:27] VITALS: BP 159/67; PULSE 80; RESP 22; TEMP 36.6; O2SAT 97
[2025-02-20] MEDS: hydrALAZINE HCl 50 MG TABLET G-TUBE ×4 (09:32→20:46)
[2025-02-20] MEDS: cloNIDine HCL 0.1 MG TABLET G-TUBE ×2 (09:32→20:46)
[2025-02-20] MEDS: Labetalol HCL 100 MG TABLET G-TUBE (09:32)
[2025-02-20] MEDS: amLODIPine Besylate 10 MG TABLET G-TUBE (09:33)
[2025-02-20] MEDS: Isosorbide Dinitrate 20 MG TABLET G-TUBE ×3 (09:33→17:54)
[2025-02-20] MEDS: 0.9 % Sodium Chloride Flush 3 ML SYRINGE IVFLUSH ×3 (09:35→20:46)
--- NOTE | 2025-02-20 10:47 | MHC.CLN ---
CONSULT PT WITH NGT IN PLACE-TF CONTINUES NEPRO TF IS UNAVAILABLE IN FACILITY RECOMMEND SWITCHING FORMULA TO GLUCERNA AT MAX GOAL RATE 65ML/HR PROVIDES 1560KCALS (24KCALS/KG BASED ON IBW), 65G PROTEIN (1.0G/KG), 1330WATER FROM FORMULA WILL HOLD FREE WATER FLUSHES AT THIS TIME R/T HX LOW SERUM NA MONITOR LYTES AND TF TOLERANCE
[2025-02-20 11:31] VITALS: BP 113/52; PULSE 69; RESP 20; TEMP 36.4; O2SAT 96
--- NOTE | 2025-02-20 13:05 | P.PNIM_ITS ---
Subjective Subjective Date of Service: 02/20/25 Interval History: Seen and evaluated this morning more alert but interactive Tube feeding running On RA no other events Physical Exam 2 Vital Signs: Vital Signs: Last Vital Signs Temp 97.5 F 02/20/25 11:31 Pulse 69 02/20/25 11:31 Resp 20 02/20/25 11:31 BP 113/52 L 02/20/25 11:31 Pulse Ox 96 02/20/25 11:31 O2 Del Method Room Air 02/20/25 11:31 O2 Flow Rate 2 02/14/25 19:00 FiO2 21 02/14/25 17:00 BMI result Body Mass Index 23.0 Const: Other: Constitutional : more awake, more interactive, not in distress Cardiovascular : no JVP, no lower extremity edema Respiratory : bilateral chest movement, not in resp distress Gastrointestinal: soft, lax, Non tender, NG tube in place Skin : Warm, Dry Neurological : more alert and interactive, open eyes to vocal stimuli, answers with yes\no, frail Objective Data Active Medications Amlodipine Besylate (Amlodipine Besylate 10 Mg Tablet) 10 mg G-TUBE DAILY [facility]; Protocol Last Admin: 02/20/25 09:33 Dose: 10 mg Documented By: TITI Atorvastatin Calcium (Atorvastatin Calcium 80 Mg Tablet) 80 mg G-TUBE BEDTIME [facility] Last Admin: 02/19/25 20:19 Dose: 80 mg Documented By: RASHAWN Chlorhexidine Gluconate (Chlorhexidine Gluc Oral Rinse 15 Ml Mouthwash) 15 ml BUCCAL TID [facility] Last Admin: 02/20/25 10:26 Dose: Not Given Documented By: TITI Non-Admin Reason: pt unable to follow command Clonidine HCl (Clonidine Hcl 0.1 Mg Tablet) 0.1 mg G-TUBE BID [facility]; Protocol Last Admin: 02/20/25 09:32 Dose: 0.1 mg Documented By: TITI Dextrose (Dextrose 50 % 25 Gm/50 Ml Syringe) 25 gm IVPUSH Q15M PRN; Protocol PRN Reason: per Hypoglycemia Standing Ord. Glucose (Glucose Gel 15 Gm Gel..Gram.) 15 gm PO Q15M PRN; Protocol PRN Reason: per Hypoglycemia Standing Ord. Hydralazine HCl (Hydralazine Hcl 20 Mg/Ml Vial) 10 mg IVPUSH Q4H PRN; Protocol PRN Reason: Hypertension Last Admin: 02/15/25 06:06 Dose: 10 mg Documented By: CHYNA Hydralazine HCl (Hydralazine Hcl 50 Mg Tablet) 50 mg G-TUBE QID [facility]; Protocol Last Admin: 02/20/25 12:44 Dose: 50 mg Documented By: TITI Insulin Human Lispro (Insulin Lispro 100 Unit/Ml 3 Ml Vial) 0 unit SUBCUT Q6H [facility]; Protocol Last Admin: 02/20/25 12:44 Dose: 4 unit Documented By: TITI Isosorbide Dinitrate (Isosorbide Dinitrate 20 Mg Tablet) 20 mg G-TUBE 0800,1300,1800 [facility]; Protocol Last Admin: 02/20/25 12:44 Dose: 20 mg Documented By: TITI Labetalol HCl (Labetalol Hcl 100 Mg Tablet) 100 mg G-TUBE DAILY [facility]; Protocol Last Admin: 02/20/25 09:32 Dose: 100 mg Documented By: TITI Levothyroxine Sodium (Levothyroxine Sodium 125 Mcg Tablet) 125 mcg G-TUBE DAILY@0600 [facility] Last Admin: 02/20/25 05:50 Dose: 125 mcg Documented By: RASHAWN Omeprazole (Omeprazole/Na Bicarb Oral Susp 20 Mg/10 Ml Ud Cup) 40 mg PO BID@0630,1630 [facility] Last Admin: 02/20/25 05:50 Dose: 40 mg Documented By: RASHAWN Sodium Chloride (0.9 % Sodium Chloride Flush 3 Ml Syringe) 3 ml IVFLUSH QSHIFT [facility] Last Admin: 02/20/25 09:35 Dose: 3 ml Documented By: TITI Labs 02/20/25 06:35 02/20/25 06:35 Labs: Laboratory Results - last 24 hr 02/19/25 02/19/25 02/19/25 13:33 17:44 23:41 MCV MCH MCHC RDW Plt Count MPV Immature Gran % (Auto) Neut % (Auto) Lymph % (Auto) [place] % (Auto) Eos % (Auto) Baso % (Auto) Lymph # (Auto) [place] # (Auto) Eos # (Auto) Baso # (Auto) Abs Immat Gran (auto) Absolute Neuts (auto) Absolute Nucleated RBC Nucleated RBC % (auto) Anion Gap Estim Creat Clear Calc Estimated GFR POC Glucose 276 H 279 H 187 H Random Glucose Calcium 02/20/25 02/20/25 05:46 06:35 MCV 87.8 MCH 30.0 MCHC 34.2 RDW 13.5 Plt Count 240 MPV 10.4 Immature Gran % (Auto) 1.2 H Neut % (Auto) 79.2 H Lymph % (Auto) 7.3 L [place] % (Auto) 7.3 Eos % (Auto) 4.4 H Baso % (Auto) 0.6 Lymph # (Auto) 0.6 L [place] # (Auto) 0.6 Eos # (Auto) 0.4 Baso # (Auto) 0.1 Abs Immat Gran (auto) 0.10 H Absolute Neuts (auto) 6.6 Absolute Nucleated RBC 0.000 Nucleated RBC % (auto) 0.0 Anion Gap 19 Estim Creat Clear Calc 12.3 Estimated GFR 12 POC Glucose 187 H Random Glucose 215 H Calcium 9.2 Assessment and Plan (1) Pulmonary aspiration: Status: Acute (2) ESRD on hemodialysis: Status: Acute (3) Renal failure: Status: Acute (4) Duodenal ulcer: Status: Acute (5) Acute on chronic anemia: Status: Acute Plan 79-year-old lady admitted with acute hypoxic respiratory failure requiring ventilatory support, likely secondary to acute on chronic combined systolic and diastolic congestive heart failure, improved with diuresis, extubated on 01/22/2025, further complicated by acute chronic CVA with significant encephalopathy, GI bleed. 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 improved Cardiology following continue antihypertensive regimen Acute hypoxic respiratory failure secondary to pulmonary aspiration requiring ventilatory support REsolved, extubated on 02/14/2025. Healthcare proxy/family chose DNI\DNR Monitor End-stage renal disease on hemodialysis. Nephrology following, on dialysis monitor renal indices and urine output. diabetes mellitus subcutaneous insulin. Prophylaxis: Compression therapy ACP: Discussed goals of care with HCP. They would like to continue therapy and give the patient a chance to recover understand she might need PEG tube placement for feeding and extensive PT once she is more interactive and aware. confirmed DNR\DNI status. The patient will need overnight stay pending improvement in mentation, tolerance of diet Quality Stroke Does the patient have a stroke diagnosis?: Yes Reason for No Anti-thrombotic by Day Two: N/A - Med Ordered VTE Prior VTE?: No VTE Risk Level:: Medical - moderate - high VTE Device Contraindication: N/A - Device Ordered VTE Drug Contraindication: Treatment Not Tolerated
[2025-02-20 13:18] LABS: Glucose, Whole Blood 202 mg/dL (60-115)
--- NOTE | 2025-02-20 13:57 | PM.PNGS ---
Subjective Subjective Date of Service: 02/23/25 Interval history: No significant changes with regards to overall status she does not communicate verbally she opens eyes spontaneously tolerating NG tube feeds Physical Exam Vital Signs: Vital Signs: Last Vital Signs Temp 97.5 F 02/20/25 11:31 Pulse 69 02/20/25 11:31 Resp 20 02/20/25 11:31 BP 113/52 L 02/20/25 11:31 Pulse Ox 96 02/20/25 11:31 O2 Del Method Room Air 02/20/25 11:31 O2 Flow Rate 2 02/14/25 19:00 FiO2 21 02/14/25 17:00 BMI result Body Mass Index 23.0 Const: Other: very frail looking, not communicative, seems very drowsy and mildly short of breath Resp: Other: mildly short of breath Cardio: Rate: regular rate GI: Other: no obvious surgical scars on the left upper quadrant Palpation (GI): Soft to palpation, not firm and no guarding Objective Data Active Medications Amlodipine Besylate (Amlodipine Besylate 10 Mg Tablet) 10 mg G-TUBE DAILY [facility]; Protocol Last Admin: 02/20/25 09:33 Dose: 10 mg Documented By: TITI Atorvastatin Calcium (Atorvastatin Calcium 80 Mg Tablet) 80 mg G-TUBE BEDTIME [facility] Last Admin: 02/19/25 20:19 Dose: 80 mg Documented By: RASHAWN Chlorhexidine Gluconate (Chlorhexidine Gluc Oral Rinse 15 Ml Mouthwash) 15 ml BUCCAL TID [facility] Last Admin: 02/20/25 10:26 Dose: Not Given Documented By: TITI Non-Admin Reason: pt unable to follow command Clonidine HCl (Clonidine Hcl 0.1 Mg Tablet) 0.1 mg G-TUBE BID [facility]; Protocol Last Admin: 02/20/25 09:32 Dose: 0.1 mg Documented By: TITI Dextrose (Dextrose 50 % 25 Gm/50 Ml Syringe) 25 gm IVPUSH Q15M PRN; Protocol PRN Reason: per Hypoglycemia Standing Ord. Glucose (Glucose Gel 15 Gm Gel..Gram.) 15 gm PO Q15M PRN; Protocol PRN Reason: per Hypoglycemia Standing Ord. Hydralazine HCl (Hydralazine Hcl 20 Mg/Ml Vial) 10 mg IVPUSH Q4H PRN; Protocol PRN Reason: Hypertension Last Admin: 02/15/25 06:06 Dose: 10 mg Documented By: CHNYA Hydralazine HCl (Hydralazine Hcl 50 Mg Tablet) 50 mg G-TUBE QID [facility]; Protocol Last Admin: 02/20/25 12:44 Dose: 50 mg Documented By: TITI Insulin Human Lispro (Insulin Lispro 100 Unit/Ml 3 Ml Vial) 0 unit SUBCUT Q6H [facility]; Protocol Last Admin: 02/20/25 12:44 Dose: 4 unit Documented By: TITI Isosorbide Dinitrate (Isosorbide Dinitrate 20 Mg Tablet) 20 mg G-TUBE 0800,1300,1800 [facility]; Protocol Last Admin: 02/20/25 12:44 Dose: 20 mg Documented By: TITI Labetalol HCl (Labetalol Hcl 100 Mg Tablet) 100 mg G-TUBE DAILY [facility]; Protocol Last Admin: 02/20/25 09:32 Dose: 100 mg Documented By: TITI Levothyroxine Sodium (Levothyroxine Sodium 125 Mcg Tablet) 125 mcg G-TUBE DAILY@0600 [facility] Last Admin: 02/20/25 05:50 Dose: 125 mcg Documented By: RASHAWN Omeprazole (Omeprazole/Na Bicarb Oral Susp 20 Mg/10 Ml Ud Cup) 40 mg PO BID@0630,1630 [facility] Last Admin: 02/20/25 05:50 Dose: 40 mg Documented By: RASHAWN Sodium Chloride (0.9 % Sodium Chloride Flush 3 Ml Syringe) 3 ml IVFLUSH QSHIFT [facility] Last Admin: 02/20/25 09:35 Dose: 3 ml Documented By: TITI Labs 02/22/25 06:42 02/22/25 06:42 Labs: Laboratory Results - last 24 hr 02/19/25 02/19/25 02/20/25 17:44 23:41 05:46 MCV MCH MCHC RDW Plt Count MPV Immature Gran % (Auto) Neut % (Auto) Lymph % (Auto) [place] % (Auto) Eos % (Auto) Baso % (Auto) Lymph # (Auto) [place] # (Auto) Eos # (Auto) Baso # (Auto) Abs Immat Gran (auto) Absolute Neuts (auto) Absolute Nucleated RBC Nucleated RBC % (auto) Anion Gap Estim Creat Clear Calc Estimated GFR POC Glucose 279 H 187 H 187 H Random Glucose Calcium 02/20/25 02/20/25 06:35 11:33 MCV 87.8 MCH 30.0 MCHC 34.2 RDW 13.5 Plt Count 240 MPV 10.4 Immature Gran % (Auto) 1.2 H Neut % (Auto) 79.2 H Lymph % (Auto) 7.3 L [place] % (Auto) 7.3 Eos % (Auto) 4.4 H Baso % (Auto) 0.6 Lymph # (Auto) 0.6 L [place] # (Auto) 0.6 Eos # (Auto) 0.4 Baso # (Auto) 0.1 Abs Immat Gran (auto) 0.10 H Absolute Neuts (auto) 6.6 Absolute Nucleated RBC 0.000 Nucleated RBC % (auto) 0.0 Anion Gap 19 Estim Creat Clear Calc 12.3 Estimated GFR 12 POC Glucose 202 H Random Glucose 215 H Calcium 9.2 Procedures Date of Service Date of Service: 02/23/25 Progress Note: A&P Assessment and plan (1) Cerebrovascular accident: Status: Acute Assessment and Plan: with right-sided weakness not following instructions and has no oral intake therefore referred to me for PEG tube placement I had a long discussion with her daughter about this procedure she was made aware of the multiple comorbidities she is aware that the patient presents with significant perioperative risks for PEG tube placement with anesthesia she wants to discuss this with the rest of her siblings Time Spent With Patient Time: Total time managing care of this patient today ____ minutes. Quality Stroke Does the patient have a stroke diagnosis?: Yes Reason for No Anti-thrombotic by Day Two: N/A - Med Ordered VTE Prior VTE?: No VTE Risk Level:: Medical - moderate - high VTE Device Contraindication: N/A - Device Ordered VTE Drug Contraindication: Treatment Not Tolerated
--- NOTE | 2025-02-20 14:44 | MHC.SLORD ---
Speech Language Pathology Order Status: PACKAGE CLERK attempted swallow evaluation at bedside this afternoon. Pt lethargic and w/ decreased alertness. Oral care provided. Pt unable to follow commands to safely trial PO. When presented w/ trace amount of liquids via teaspoon, pt bit down on spoon. PACKAGE CLERK to re-evaluate tomorrow.
[2025-02-20 15:34] VITALS: BP 118/56; PULSE 68; RESP 18; TEMP 36.3; O2SAT 100
[2025-02-20 18:01] LABS: Glucose, Whole Blood 171 mg/dL (60-115)
[2025-02-20 19:53] VITALS: BP 135/63; PULSE 76; RESP 18; TEMP 36.5; O2SAT 100
[2025-02-20] MEDS: Atorvastatin Calcium 80 MG TABLET G-TUBE (20:46)
[2025-02-21] VITALS (8 sets, daily range): BP systolic 97–169; BP diastolic 46–72; PULSE 72–87; RESP 14–19; TEMP 36.1–36.9; O2SAT 95–99
[2025-02-21] MEDS: Insulin Lispro 100 UNIT/ML 3 ML VIAL SUBCUT ×4 (01:12→18:09)
[2025-02-21 04:49] LABS: Glucose, Whole Blood 170 mg/dL (60-115)
[2025-02-21] MEDS: Levothyroxine Sodium 125 MCG TABLET G-TUBE (06:08)
[2025-02-21] MEDS: Omeprazole/Na Bicarb Oral Susp 20 MG/10 ML UD Cup 40 MG PO (06:08)
[2025-02-21 07:11] LABS: MANUAL DIFF FLAG NO
[2025-02-21 07:19] LABS: Basophils Absolute Auto 0.1 X10*3/uL (0.0-0.2); Basophils Percent Auto 0.6 % (0-2); Eosinophils Absolute Auto 0.6 X10*3/uL (0.0-0.4); Eosinophils Percent Auto 5.9 % (0-4); Hematocrit 21.2 % (37.0-47.0); Hemoglobin 7.2 g/dl (12.0-16.0); Imm Gran Abs Auto 0.21 X10*3/uL (0.00-0.03); Imm Gran Pct Auto 2.2 % (0.0-0.4); Lymphocytes Absolute Auto 0.7 X10*3/uL (1.2-4.9); Lymphocytes Percent Auto 7.2 % (20-40); Mean Corpuscular Hemoglobin 29.4 pg (27.0-33.0); Mean Corpuscular Volume 86.5 fL (80.0-98.0); Mean Platelet Volume 10.5 fL (9.4-12.3); Monocytes Absolute Auto 0.9 X10*3/uL (0.1-1.2); Monocytes Percent Auto 9.3 % (2-11); Neutrophils Absolute Auto 7.1 x10*3/uL (2.0-8.3); Neutrophils Percent Auto 74.8 % (45-73); Platelet Count 256 X10*3/uL (160-400); Red Blood Count 2.45 X10*6/uL (4.20-5.50); Red Cell Distribution Width 13.7 % (11.0-16.0); White Blood Count 9.4 X10*3/uL (4.8-10.8)
[2025-02-21 07:40] LABS: Anion Gap 22 (12-20); Blood Urea Nitrogen 106 mg/dL (9-16); Calcium 8.5 mg/dL (8.4-10.2); Carbon Dioxide 25 mmol/L (22-29); Chloride 90 mmol/L (96-108); Creatinine Clr Calc Pharmacy 9.2; Estimated Glomerular Filt Rate 8; Glucose Random 225 mg/dL (60-115); Potassium 5.3 mmol/L (3.3-5.1); Sodium 132 mmol/L (135-145)
[2025-02-21 07:56] LABS: Glucose, Whole Blood 160 mg/dL (60-115)
[2025-02-21] MEDS: Labetalol HCL 100 MG TABLET G-TUBE (10:27)
[2025-02-21] MEDS: amLODIPine Besylate 10 MG TABLET G-TUBE (10:28)
[2025-02-21] MEDS: hydrALAZINE HCl 50 MG TABLET G-TUBE ×4 (10:28→19:47)
[2025-02-21] MEDS: Isosorbide Dinitrate 20 MG TABLET G-TUBE ×3 (10:28→18:06)
[2025-02-21] MEDS: cloNIDine HCL 0.1 MG TABLET G-TUBE ×2 (10:29→19:47)
[2025-02-21] MEDS: 0.9 % Sodium Chloride Flush 3 ML SYRINGE IVFLUSH ×3 (10:29→19:47)
--- NOTE | 2025-02-21 10:29 | HO.PM.IMPN ---
Subjective Subjective Date of Service: 02/21/25 Review of Systems Review of Systems: Yes Unobtainable due to mental condition Physical Exam Vital Signs: Vital Signs: Last Vital Signs Temp 97.0 F 02/21/25 09:51 Pulse 87 02/21/25 09:51 Resp 16 02/21/25 09:51 BP 169/72 H 02/21/25 09:51 Pulse Ox 99 02/21/25 09:51 O2 Del Method Room Air 02/21/25 09:51 O2 Flow Rate 2 02/14/25 19:00 FiO2 21 02/14/25 17:00 BMI result Body Mass Index 23.0 Alert tracking, following commands of blinking and closing eyes. dense right hemiplegia, weakness on left, not vocalizing Objective Data Active Medications Amlodipine Besylate (Amlodipine Besylate 10 Mg Tablet) 10 mg G-TUBE DAILY KENYA; Protocol Last Admin: 02/20/25 09:33 Dose: 10 mg Documented By: TITI Atorvastatin Calcium (Atorvastatin Calcium 80 Mg Tablet) 80 mg G-TUBE BEDTIME KENYA Last Admin: 02/20/25 20:46 Dose: 80 mg Documented By: JOSE Chlorhexidine Gluconate (Chlorhexidine Gluc Oral Rinse 15 Ml Mouthwash) 15 ml BUCCAL TID KENYA Last Admin: 02/20/25 22:37 Dose: Not Given Documented By: JOSE Non-Admin Reason: NPO; Clonidine HCl (Clonidine Hcl 0.1 Mg Tablet) 0.1 mg G-TUBE BID KENYA; Protocol Last Admin: 02/20/25 20:46 Dose: 0.1 mg Documented By: JOSE Dextrose (Dextrose 50 % 25 Gm/50 Ml Syringe) 25 gm IVPUSH Q15M PRN; Protocol PRN Reason: per Hypoglycemia Standing Ord. Glucose (Glucose Gel 15 Gm Gel..Gram.) 15 gm PO Q15M PRN; Protocol PRN Reason: per Hypoglycemia Standing Ord. Hydralazine HCl (Hydralazine Hcl 20 Mg/Ml Vial) 10 mg IVPUSH Q4H PRN; Protocol PRN Reason: Hypertension Last Admin: 02/15/25 06:06 Dose: 10 mg Documented By: CHYNA Hydralazine HCl (Hydralazine Hcl 50 Mg Tablet) 50 mg G-TUBE QID KENYA; Protocol Last Admin: 02/20/25 20:46 Dose: 50 mg Documented By: JOSE Insulin Human Lispro (Insulin Lispro 100 Unit/Ml 3 Ml Vial) 0 unit SUBCUT Q6H [facility]; Protocol Last Admin: 02/21/25 06:08 Dose: 2 unit Documented By: JOSE Isosorbide Dinitrate (Isosorbide Dinitrate 20 Mg Tablet) 20 mg G-TUBE 0800,1300,1800 [facility]; Protocol Last Admin: 02/20/25 17:54 Dose: 20 mg Documented By: TITI Labetalol HCl (Labetalol Hcl 100 Mg Tablet) 100 mg G-TUBE DAILY [facility]; Protocol Last Admin: 02/20/25 09:32 Dose: 100 mg Documented By: TITI Levothyroxine Sodium (Levothyroxine Sodium 125 Mcg Tablet) 125 mcg G-TUBE DAILY@0600 [facility] Last Admin: 02/21/25 06:08 Dose: 125 mcg Documented By: JOSE Omeprazole (Omeprazole/Na Bicarb Oral Susp 20 Mg/10 Ml Ud Cup) 40 mg PO BID@0630,1630 [facility] Last Admin: 02/21/25 06:08 Dose: 40 mg Documented By: JOSE Pantoprazole Sodium (Pantoprazole Sodium 40 Mg/10 Ml Vial) 40 mg IVPUSH BID@0630,1630 [facility] Sodium Chloride (0.9 % Sodium Chloride Flush 3 Ml Syringe) 3 ml IVFLUSH QSHIFT [facility] Last Admin: 02/20/25 20:46 Dose: 3 ml Documented By: JOSE Labs 02/21/25 06:27 02/21/25 06:27 Labs: Laboratory Results - last 24 hr 02/20/25 02/20/25 02/21/25 11:33 17:37 00:29 MCV MCH MCHC RDW Plt Count MPV Immature Gran % (Auto) Neut % (Auto) Lymph % (Auto) [place] % (Auto) Eos % (Auto) Baso % (Auto) Lymph # (Auto) [place] # (Auto) Eos # (Auto) Baso # (Auto) Abs Immat Gran (auto) Absolute Neuts (auto) Absolute Nucleated RBC Nucleated RBC % (auto) Anion Gap Estim Creat Clear Calc Estimated GFR POC Glucose 202 H 171 H 170 H Random Glucose Calcium 02/21/25 02/21/25 06:27 07:15 MCV 86.5 MCH 29.4 MCHC 34.0 RDW 13.7 Plt Count 256 MPV 10.5 Immature Gran % (Auto) 2.2 H Neut % (Auto) 74.8 H Lymph % (Auto) 7.2 L [place] % (Auto) 9.3 Eos % (Auto) 5.9 H Baso % (Auto) 0.6 Lymph # (Auto) 0.7 L [place] # (Auto) 0.9 Eos # (Auto) 0.6 H Baso # (Auto) 0.1 Abs Immat Gran (auto) 0.21 H Absolute Neuts (auto) 7.1 Absolute Nucleated RBC 0.000 Nucleated RBC % (auto) 0.0 Anion Gap 22 H Estim Creat Clear Calc 9.2 Estimated GFR 8 POC Glucose 160 H Random Glucose 225 H Calcium 8.5 D Assessment and Plan (1) Pulmonary aspiration: Status: Acute (2) ESRD on hemodialysis: Status: Acute (3) Renal failure: Status: Acute (4) Duodenal ulcer: Status: Acute (5) Acute on chronic anemia: Status: Acute Plan 79F PMH HTN, HLD, DM, CAD, CVA with right hemiparesis, CKD IV, hypothyroid, LUANA presented on 01/19/25 with AMS, hypoxia, chf. was intubated and admitted to ICU likely secondary to acute on chronic combined systolic and diastolic congestive heart failure, improved with diuresis, extubated on 01/22/2025, reintubated 01/29/25, extubated 02/14/25, further complicated by acute CVA with significant encephalopathy, dysphagia, right hemiplegia found on 04/08/25. course also complicated by GI bleed due to duodenal ulcer s'p embolization 01/30/25, also complicated by KAI/ATN started on HD 01/27/25. acute Toxic metabolic encephalopathy with new left-sided CVA on the background of prior CVA complicated by significant dysphagia altered, frail, not moving exremities, make eye contact and mumble yes\no on Statin continue Tube feeding not on ASA\Eliquis given GI bleed discussed goals of care with HCP; continue tube feed, consider PEG tube, changed to DNR\DNI, they would like to hold on restarting Eliquis at this stage Surgery consulted for PEG tube placement - family still to decide Upper GI bleed with acute blood loss anemia secondary to duodenal ulcer requiring embolization reported Lisa colored stool 02/20, monitor hgb continue PPI Acute on chronic combined systolic and diastolic congestive heart failure. improved Cardiology following continue antihypertensive regimen Acute hypoxic respiratory failure secondary to aspiration pneumonia requiring ventilatory support Resolved, extubated on 02/14/2025. Healthcare proxy/family chose DNI\DNR copmleted antibiotics Monitor KAI due to ATN on CKD IV hemodialysis. Nephrology following, on dialysis monitor renal indices and urine output. will need permacath diabetes mellitus subcutaneous insulin. Prophylaxis: Compression therapy due to gi bleed DNR/DNI reason for continued hospitalization:will need gtube and permacath Quality Stroke Does the patient have a stroke diagnosis?: Yes Reason for No Anti-thrombotic by Day Two: N/A - Med Ordered VTE Prior VTE?: No VTE Risk Level:: Medical - moderate - high VTE Device Contraindication: N/A - Device Ordered VTE Drug Contraindication: Treatment Not Tolerated
[2025-02-21 11:47] LABS: Glucose, Whole Blood 210 mg/dL (60-115)
--- NOTE | 2025-02-21 12:06 | P.CNNE_ITS ---
History of Present Illness Data of Consult Service Date: 02/21/25 Primary Care Provider: Tyree Amador MD [facility] Reason for consult: Stroke 79 years old woman who was admitted in hospital for CHF and was intubated. Her workup also revealed an acute ischemic infarction but because of multiple reasons she could not be treated with medicine like TNK. Now she was out of ICU extubated and consultation was requested for the stroke noted on MRI. She was unable to provide any history. Review of Systems 2 Review of Systems: Could not be done with [facility] Past Medical History Medical History (Updated 02/21/25 @ 12:09 by Monica Winter MD) Dementia Right hemiparesis Cerebrovascular accident Toe amputee Mild cognitive impairment Tremors of nervous system Obstructive sleep apnea C. difficile colitis Septic shock Arthritis Hyperlipidemia CKD (chronic kidney disease) Hypothyroid HTN (hypertension) CAD (coronary artery disease) Diabetes Amputation of toe H/O nephrolithotomy with removal of calculi Family History Family History Mother FH: lung cancer Father No problems noted. Family/Other Heart disease Family/Other Bladder cancer Surgical History Surgical History Hx of heart artery stent Social History Social History Household Members: Family Housing: House Do you presently have visiting nurse or other home services: Yes ([facility]) Alcohol intake: never Patient Tobacco Use Status: Never used Tobacco Advance Directives Date on File: 01/28/25 Meds Allergies Allergy/AdvReac Type Severity Reaction Status Date / Time pioglitazone [From Actos] Allergy Severe Anaphylaxis Verified 01/19/25 07:00 Active Medications: Current Medications Amlodipine Besylate (Amlodipine Besylate 10 Mg Tablet) 10 mg G-TUBE DAILY KENYA; Protocol Last Admin: 02/21/25 10:28 Dose: 10 mg Atorvastatin Calcium (Atorvastatin Calcium 80 Mg Tablet) 80 mg G-TUBE BEDTIME KENYA Last Admin: 02/20/25 20:46 Dose: 80 mg Chlorhexidine Gluconate (Chlorhexidine Gluc Oral Rinse 15 Ml Mouthwash) 15 ml BUCCAL TID KENYA Last Admin: 02/21/25 10:29 Dose: Not Given Clonidine HCl (Clonidine Hcl 0.1 Mg Tablet) 0.1 mg G-TUBE BID [facility]; Protocol Last Admin: 02/21/25 10:29 Dose: 0.1 mg Dextrose (Dextrose 50 % 25 Gm/50 Ml Syringe) 25 gm IVPUSH Q15M PRN; Protocol PRN Reason: per Hypoglycemia Standing Ord. Glucose (Glucose Gel 15 Gm Gel..Gram.) 15 gm PO Q15M PRN; Protocol PRN Reason: per Hypoglycemia Standing Ord. Hydralazine HCl (Hydralazine Hcl 20 Mg/Ml Vial) 10 mg IVPUSH Q4H PRN; Protocol PRN Reason: Hypertension Last Admin: 02/15/25 06:06 Dose: 10 mg Hydralazine HCl (Hydralazine Hcl 50 Mg Tablet) 50 mg G-TUBE QID [facility]; Protocol Last Admin: 02/21/25 10:28 Dose: 50 mg Insulin Human Lispro (Insulin Lispro 100 Unit/Ml 3 Ml Vial) 0 unit SUBCUT Q6H KENYA; Protocol Last Admin: 02/21/25 11:58 Dose: 4 unit Isosorbide Dinitrate (Isosorbide Dinitrate 20 Mg Tablet) 20 mg G-TUBE 0800,1300,1800 [facility]; Protocol Last Admin: 02/21/25 10:28 Dose: 20 mg Labetalol HCl (Labetalol Hcl 100 Mg Tablet) 100 mg G-TUBE DAILY [facility]; Protocol Last Admin: 02/21/25 10:27 Dose: 100 mg Levothyroxine Sodium (Levothyroxine Sodium 125 Mcg Tablet) 125 mcg G-TUBE DAILY@0600 [facility] Last Admin: 02/21/25 06:08 Dose: 125 mcg Omeprazole (Omeprazole/Na Bicarb Oral Susp 20 Mg/10 Ml Ud Cup) 40 mg PO BID@0630,1630 [facility] Last Admin: 02/21/25 06:08 Dose: 40 mg Pantoprazole Sodium (Pantoprazole Sodium 40 Mg/10 Ml Vial) 40 mg IVPUSH BID@0630,1630 [facility] Sodium Chloride (0.9 % Sodium Chloride Flush 3 Ml Syringe) 3 ml IVFLUSH QSHIFT [facility] Last Admin: 02/21/25 10:29 Dose: 3 ml Home Medications ?Medication ?Instructions ?Recorded ?Confirmed ?Last Taken ?Type alpha lipoic acid 200 mg capsule 600 mg PO BEDTIME 03/13/22 01/19/25 Unknown History bumetanide 1 mg tablet 1 mg PO Q48H 03/13/22 01/19/25 Unknown History hydralazine 50 mg tablet 75 mg PO QID 03/13/22 01/19/25 Unknown History ascorbic acid (vitamin C) 250 mg 250 mg PO BID 01/13/23 01/19/25 Unknown History tablet mecobalamin (vitamin B12) 1,000 1,000 mcg PO DAILY 01/13/23 01/19/25 Unknown History mcg chewable tablet omeprazole 20 mg capsule,delayed 40 mg PO DAILY@0630 01/13/23 01/19/25 Unknown History release sodium bicarbonate 650 mg tablet 1,300 mg PO TID 01/13/23 01/19/25 Unknown History amlodipine 10 mg tablet 10 mg PO DAILY 04/10/24 01/19/25 Unknown History atorvastatin 20 mg tablet 80 mg PO BEDTIME 04/10/24 01/19/25 Unknown History gabapentin 600 mg tablet 600 mg PO BEDTIME 04/10/24 01/19/25 Unknown History icosapent ethyl 1 gram capsule 1 g PO BID 08/30/24 01/19/25 Unknown History (Vascepa) acetaminophen 325 mg tablet 650 mg PO Q6H PRN Pain/Fever 01/19/25 01/19/25 Unknown History apixaban 2.5 mg tablet (Eliquis) 2.5 mg PO BID 01/19/25 01/19/25 Unknown History bisacodyl 10 mg rectal suppository 10 mg CA DAILY PRN Constipation 01/19/25 01/19/25 Unknown History cholecalciferol (vitamin D3) 50 50 mcg PO DAILY 01/19/25 01/19/25 Unknown History mcg (2,000 unit) tablet (Vitamin D3) clonidine HCl 0.1 mg tablet 0.1 mg PO BID 01/19/25 01/19/25 Unknown History docusate sodium 100 mg capsule 100 mg PO DAILY 01/19/25 01/19/25 Unknown History ferrous sulfate 137 mg (45 mg 137 mg PO DAILY 01/19/25 01/19/25 Unknown History iron) tablet,extended release insulin glargine 100 unit/mL (3 20 unit subcut BEDTIME 01/19/25 01/19/25 Unknown History mL) subcutaneous pen (Lantus Solostar U-100 Insulin) insulin lispro 100 unit/mL 1 sliding scale dose subcut 01/19/25 01/19/25 Unknown History subcutaneous pen (Humalog KwikPen USEASDIRECTD (U-100) Insulin) labetalol 100 mg tablet 100 mg PO DAILY 01/19/25 01/19/25 Unknown History levothyroxine 125 mcg tablet 125 mcg PO DAILY@0600 01/19/25 01/19/25 Unknown History magnesium hydroxide 400 mg/5 mL 5 ml PO DAILY PRN Constipation 01/19/25 01/19/25 Unknown History oral suspension (Milk of Magnesia) magnesium oxide 400 mg PO DAILY 01/19/25 01/19/25 Unknown History polyethylene glycol 3350 17 17 g PO DAILY 01/19/25 01/19/25 Unknown History gram/dose oral powder (Miralax) sennosides 8.6 mg tablet (senna) 17.2 mg PO BEDTIME Constipation 01/19/25 01/19/25 Unknown History Physical Exam 2 Vital Signs: Vital Signs: Last Vital Signs Temp 97.4 F 02/21/25 11:46 Pulse 81 02/21/25 11:46 Resp 14 02/21/25 11:46 BP 114/55 L 02/21/25 11:46 Pulse Ox 98 02/21/25 11:46 O2 Del Method Room Air 02/21/25 11:46 O2 Flow Rate 2 02/14/25 19:00 FiO2 21 02/14/25 17:00 BMI result Body Mass Index 23.0 Neuro: Other: She is alert and awake made eye contact seemed nervous and anxious but did not say of word and did not follow commands. Her left arm was almost continuously shaking. This was even when it was passively held. Deep tendon reflexes were absent. There was no gaze deviation or nystagmus. Plantars were flexor. Exam was limited. Results Labs 02/21/25 06:27 02/21/25 06:27 Labs: Short CBC 02/21/25 Range/Units 06:27 WBC 9.4 (4.8-10.8) X10*3/uL Hgb 7.2 L (12.0-16.0) g/dl Hct 21.2 L (37.0-47.0) % Plt Count 256 (160-400) X10*3/uL BMP 03/26/25 06:27 Sodium 132 L Potassium 5.3 H D Chloride 90 L Carbon Dioxide 25 BUN 106 H Creatinine 5.00 H* Calcium 8.5 D MRI of brain revealed a small left anterior limb of internal capsular infarct with a tiny area of restricted diffusion and cortical left parietal.. Microbiology Microbiology Results: Microbiology 01/19/25 07:38 Blood - Venous Blood Culture - Final No growth after 5 days. 01/19/25 07:14 Blood - Venous Blood Culture - Final No growth after 5 days. Assessment and Plan (1) Encephalopathy: Qualifiers: Encephalopathy type: unspecified encephalopathy Qualified Code(s): G 93.40 - Encephalopathy, unspecified Status: Acute 79 years old woman who was recently intubated for complications of CHF. MRI of brain revealed a small left basal ganglia and even smaller left parietal cortical ischemic lesion, probably embolic from cardiac source. At this time, she was not communicating or comprehending. She also had continuous left arm shaking. This raised possibility of nonconvulsive status epilepticus. My recommendation is to obtain an EEG. If EEG does not reveal epileptic tendency, repeat noncontrast MRI of brain is recommended. Procedures Date of Service Date of Service: 02/21/25
--- NOTE | 2025-02-21 12:09 | MHC.CLN ---
F/U PT WITH NGT IN PLACE-TF CONTINUES NEPRO TF IS AVAILABLE IN FACILITY RECOMMEND SWITCHING FORMULA BACK TO NEPRO AT MAX GOAL RATE 40ML/HR PROVIDES 1728KCALS, 78G PROTEIN (1.5G/KG), 698ML WATER FROM FORMULA WILL HOLD FREE WATER FLUSHES AT THIS TIME R/T HX LOW SERUM NA MONITOR LYTES AND TF TOLERANCE
--- NOTE | 2025-02-21 15:52 | MHC.CM.PN ---
EMR reviewed and per MD rounds, pt is not medically cleared for discharge due to pending g-tube and permacath placement.
[2025-02-21] MEDS: Pantoprazole Sodium 40 MG/10 ML VIAL IVPUSH (18:06)
[2025-02-21] MEDS: Atorvastatin Calcium 80 MG TABLET G-TUBE (19:47)
--- NOTE | 2025-02-21 21:36 | PM.PNNEP ---
Subjective Subjective Date of Service: 02/21/25 Interval history: Seen and evaluated this morning on HD. D/W HD RN. All recent data reviewed. Physical Exam Vital Signs: Vital Signs: Last Vital Signs Temp 98.2 F 02/21/25 19:07 Pulse 87 02/21/25 19:07 Resp 14 02/21/25 19:07 BP 110/54 L 02/21/25 19:07 Pulse Ox 98 02/21/25 19:07 O2 Del Method Room Air 02/21/25 19:07 O2 Flow Rate 2 02/14/25 19:00 FiO2 21 02/14/25 17:00 BMI result Body Mass Index 23.0 Const: General: no acute distress Resp: Auscultation: diminished lung sounds Cardio: Rate: regular rate GI: Palpation (GI): Soft to palpation Neuro: Other: Encephalopathic Objective Data Labs 02/21/25 06:27 02/21/25 06:27 Labs: Laboratory Results - last 24 hr 02/21/25 02/21/25 02/21/25 00:29 06:27 07:15 WBC 9.4 RBC 2.45 L Hgb 7.2 L Hct 21.2 L MCV 86.5 MCH 29.4 MCHC 34.0 RDW 13.7 Plt Count 256 MPV 10.5 Immature Gran % (Auto) 2.2 H Neut % (Auto) 74.8 H Lymph % (Auto) 7.2 L [place] % (Auto) 9.3 Eos % (Auto) 5.9 H Baso % (Auto) 0.6 Lymph # (Auto) 0.7 L [place] # (Auto) 0.9 Eos # (Auto) 0.6 H Baso # (Auto) 0.1 Abs Immat Gran (auto) 0.21 H Absolute Neuts (auto) 7.1 Absolute Nucleated RBC 0.000 Nucleated RBC % (auto) 0.0 Sodium 132 L Potassium 5.3 H D Chloride 90 L Carbon Dioxide 25 Anion Gap 22 H BUN 106 H Creatinine 5.00 H* Estim Creat Clear Calc 9.2 Estimated GFR 8 POC Glucose 170 H 160 H Random Glucose 225 H Calcium 8.5 D 02/21/25 11:30 WBC RBC Hgb Hct MCV MCH MCHC RDW Plt Count MPV Immature Gran % (Auto) Neut % (Auto) Lymph % (Auto) [place] % (Auto) Eos % (Auto) Baso % (Auto) Lymph # (Auto) [place] # (Auto) Eos # (Auto) Baso # (Auto) Abs Immat Gran (auto) Absolute Neuts (auto) Absolute Nucleated RBC Nucleated RBC % (auto) Sodium Potassium Chloride Carbon Dioxide Anion Gap BUN Creatinine Estim Creat Clear Calc Estimated GFR POC Glucose 210 H Random Glucose Calcium Microbiology Microbiology Results: Microbiology 01/19/25 07:38 Blood - Venous Blood Culture - Final No growth after 5 days. 01/19/25 07:14 Blood - Venous Blood Culture - Final No growth after 5 days. Procedures Date of Service Date of Service: 02/21/25 Assessment & Plan Assessment and plan (1) Acute kidney injury superimposed on CKD: Status: Acute Plan 79-year-old woman with acute kidney injury superimposed on chronic kidney disease due to tubular injury Urine sediments bland therefore glomerular nephritis or interstitial disease ruled out; Seen on HD Shall keep on MWF HD; Will need Permcath if decision is to continue HD;Continue rest of current management Progress Note: Quality Stroke Does the patient have a stroke diagnosis?: Yes Reason for No Anti-thrombotic by Day Two: N/A - Med Ordered
[2025-02-22] VITALS (9 sets, daily range): BP systolic 126–173; BP diastolic 58–74; PULSE 78–96; RESP 16–19; TEMP 36.2–36.7; O2SAT 97–98
--- NOTE | 2025-02-22 | EEG_ITS ---
This is a 16-channel EEG with an EKG lead. The patient is reported awake during the tracing. Background EEG rhythm is mostly in theta range 5 to 50 microvolt posteriorly lower amplitude fast anteriorly with frequent muscle artifacts, especially in anterior leads. No definite sharp wave spikes or paroxysmal tendency noted. No asymmetry noted. Photic stimulation does not produce any significant abnormality. Hyperventilation is not performed. Cardiac lead does not reveal any significant abnormality. IMPRESSION: Moderate generalized slowing with no evidence of seizure disorder. MD YESY Guajardo/BECKY / [phone]
--- NOTE | 2025-02-22 01:12 | PC.NURSE ---
Assumed care of this patient at 19:00. Please see shift assessment, tasks, and MAR for full details. Handoff report given to oncoming RN at 23:15.
[2025-02-22 04:22] LABS: Glucose, Whole Blood 256 mg/dL (60-115)
[2025-02-22 04:22] LABS: Glucose, Whole Blood 154 mg/dL (60-115)
[2025-02-22] MEDS: Pantoprazole Sodium 40 MG/10 ML VIAL IVPUSH ×2 (05:51→15:52)
[2025-02-22] MEDS: Insulin Lispro 100 UNIT/ML 3 ML VIAL SUBCUT ×2 (06:16→18:05)
[2025-02-22 06:48] LABS: Glucose, Whole Blood 220 mg/dL (60-115)
[2025-02-22 07:07] LABS: Hematocrit 21.9 % (37.0-47.0); Hemoglobin 7.4 g/dl (12.0-16.0); Mean Corpuscular HGB Conc 33.8 g/dl (31.0-35.0); Mean Corpuscular Hemoglobin 29.6 pg (27.0-33.0); Mean Corpuscular Volume 87.6 fL (80.0-98.0); Platelet Count 268 X10*3/uL (160-400); Red Cell Distribution Width 13.8 % (11.0-16.0); White Blood Count 9.4 X10*3/uL (4.8-10.8)
[2025-02-22 07:31] LABS: Anion Gap 18 (12-20); Blood Urea Nitrogen 68 mg/dL (9-16); Carbon Dioxide 27 mmol/L (22-29); Chloride 97 mmol/L (96-108); Estimated Glomerular Filt Rate 13; Glucose Random 226 mg/dL (60-115); Potassium 3.9 mmol/L (3.3-5.1); Sodium 138 mmol/L (135-145)
[2025-02-22] MEDS: 0.9 % Sodium Chloride Flush 3 ML SYRINGE IVFLUSH ×2 (08:04→15:52)
--- NOTE | 2025-02-22 10:57 | MHC.CM.PN ---
EMR REVIEWED, PER HOSPITALIST PT IMPROVING AND WILL NOT NEED PEG TUBE, PT WILL NEED DIALYSIS AND PERMACATH PENDING, CM CONTACTED PT'S DTR/HCP AUDREY AT NUMBER ON FILE AND AUDREY SAID SHE HAS BEEN SPEAKING W/PT'S OCCUPATIONAL THERAPY CO DIRECTOR AND GOAL IS FOR PT TO GO TO STR AND EVENTUALLY HAVE PERITONEAL DIALYSIS AT HOME, PT LIVES AUDREY, ADEN AND GKIDS. [facility] FOLLOWING AND UPDATED VIA [facility].
[2025-02-22 12:51] LABS: Glucose, Whole Blood 197 mg/dL (60-115)
[2025-02-22] MEDS: Isosorbide Dinitrate 20 MG TABLET G-TUBE ×2 (13:23→18:06)
[2025-02-22] MEDS: hydrALAZINE HCl 50 MG TABLET G-TUBE ×2 (13:23→18:05)
--- NOTE | 2025-02-22 14:51 | P.CONNP_ITS ---
History of Present Illness Reason for Consult Consult date: 02/22/25 Reason for consult: KAI on adv CKD and now ESRD Chief Complaint Chief complaint: respiratory Failure Review of Systems Review of Systems Could not be done with Yes all other systems are reviewed and are negative, unobtainable due to endotracheal tube, Unobtainable due to mental condition and Unobtainable due to mental status PMFSH Past Medical History Medical History (Updated 02/21/25 @ 12:09 by Monica Winter MD) Dementia Right hemiparesis Cerebrovascular accident Toe amputee Mild cognitive impairment Tremors of nervous system Obstructive sleep apnea C. difficile colitis Septic shock Arthritis Hyperlipidemia CKD (chronic kidney disease) Hypothyroid HTN (hypertension) CAD (coronary artery disease) Diabetes Amputation of toe H/O nephrolithotomy with removal of calculi Family History Family History Mother FH: lung cancer Father No problems noted. Family/Other Heart disease Family/Other Bladder cancer Surgical History Surgical History Hx of heart artery stent Social History Social History Household Members: Family Housing: House Do you presently have visiting nurse or other home services: Yes (VNA) Alcohol intake: never Patient Tobacco Use Status: Never used Tobacco Advance Directives Date on File: 01/28/25 Meds Allergies Allergy/AdvReac Type Severity Reaction Status Date / Time pioglitazone [From Actos] Allergy Severe Anaphylaxis Verified 01/19/25 07:00 Active Medications: Current Medications Amlodipine Besylate (Amlodipine Besylate 10 Mg Tablet) 10 mg G-TUBE DAILY [facility]; Protocol Last Admin: 02/22/25 08:02 Dose: Not Given Atorvastatin Calcium (Atorvastatin Calcium 80 Mg Tablet) 80 mg G-TUBE BEDTIME [facility] Last Admin: 02/21/25 19:47 Dose: 80 mg Chlorhexidine Gluconate (Chlorhexidine Gluc Oral Rinse 15 Ml Mouthwash) 15 ml BUCCAL TID [facility] Last Admin: 02/22/25 14:45 Dose: Not Given Clonidine HCl (Clonidine Hcl 0.1 Mg Tablet) 0.1 mg G-TUBE BID [facility]; Protocol Last Admin: 02/22/25 08:02 Dose: Not Given Dextrose (Dextrose 50 % 25 Gm/50 Ml Syringe) 25 gm IVPUSH Q15M PRN; Protocol PRN Reason: per Hypoglycemia Standing Ord. Glucose (Glucose Gel 15 Gm Gel..Gram.) 15 gm PO Q15M PRN; Protocol PRN Reason: per Hypoglycemia Standing Ord. Hydralazine HCl (Hydralazine Hcl 20 Mg/Ml Vial) 10 mg IVPUSH Q4H PRN; Protocol PRN Reason: Hypertension Last Admin: 02/15/25 06:06 Dose: 10 mg Hydralazine HCl (Hydralazine Hcl 50 Mg Tablet) 50 mg G-TUBE QID [facility]; Protocol Last Admin: 02/22/25 13:23 Dose: 50 mg Insulin Human Lispro (Insulin Lispro 100 Unit/Ml 3 Ml Vial) 0 unit SUBCUT Q6H [facility]; Protocol Last Admin: 02/22/25 12:39 Dose: Not Given Isosorbide Dinitrate (Isosorbide Dinitrate 20 Mg Tablet) 20 mg G-TUBE 0800,1300,1800 [facility]; Protocol Last Admin: 02/22/25 13:23 Dose: 20 mg Labetalol HCl (Labetalol Hcl 100 Mg Tablet) 100 mg G-TUBE DAILY [facility]; Protocol Last Admin: 02/22/25 08:03 Dose: Not Given Levothyroxine Sodium (Levothyroxine Sodium 125 Mcg Tablet) 125 mcg G-TUBE DAILY@0600 [facility] Last Admin: 02/22/25 05:50 Dose: Not Given Omeprazole (Omeprazole/Na Bicarb Oral Susp 20 Mg/10 Ml Ud Cup) 40 mg PO BID@0630,1630 [facility] Last Admin: 02/21/25 06:08 Dose: 40 mg Pantoprazole Sodium (Pantoprazole Sodium 40 Mg/10 Ml Vial) 40 mg IVPUSH BID@0630,1630 [facility] Last Admin: 02/22/25 05:51 Dose: 40 mg Sodium Chloride (0.9 % Sodium Chloride Flush 3 Ml Syringe) [facility] Last Admin: 02/22/25 08:04 Dose: 3 ml Home Medications ?Medication ?Instructions ?Recorded ?Confirmed ?Last Taken ?Type alpha lipoic acid 200 mg capsule 600 mg PO BEDTIME 03/13/22 01/19/25 Unknown History bumetanide 1 mg tablet 1 mg PO Q48H 03/13/22 01/19/25 Unknown History hydralazine 50 mg tablet 75 mg PO QID 03/13/22 01/19/25 Unknown History ascorbic acid (vitamin C) 250 mg 250 mg PO BID 01/13/23 01/19/25 Unknown History tablet mecobalamin (vitamin B12) 1,000 1,000 mcg PO DAILY 01/13/23 01/19/25 Unknown History mcg chewable tablet omeprazole 20 mg capsule,delayed 40 mg PO DAILY@0630 01/13/23 01/19/25 Unknown History release sodium bicarbonate 650 mg tablet 1,300 mg PO TID 01/13/23 01/19/25 Unknown History amlodipine 10 mg tablet 10 mg PO DAILY 04/10/24 01/19/25 Unknown History atorvastatin 20 mg tablet 80 mg PO BEDTIME 04/10/24 01/19/25 Unknown History gabapentin 600 mg tablet 600 mg PO BEDTIME 04/10/24 01/19/25 Unknown History icosapent ethyl 1 gram capsule 1 g PO BID 08/30/24 01/19/25 Unknown History (Vascepa) acetaminophen 325 mg tablet 650 mg PO Q6H PRN Pain/Fever 01/19/25 01/19/25 Unknown History apixaban 2.5 mg tablet (Eliquis) 2.5 mg PO BID 01/19/25 01/19/25 Unknown History bisacodyl 10 mg rectal suppository 10 mg [place] DAILY PRN Constipation 01/19/25 01/19/25 Unknown History cholecalciferol (vitamin D3) 50 50 mcg PO DAILY 01/19/25 01/19/25 Unknown History mcg (2,000 unit) tablet (Vitamin D3) clonidine HCl 0.1 mg tablet 0.1 mg PO BID 01/19/25 01/19/25 Unknown History docusate sodium 100 mg capsule 100 mg PO DAILY 01/19/25 01/19/25 Unknown History ferrous sulfate 137 mg (45 mg 137 mg PO DAILY 01/19/25 01/19/25 Unknown History iron) tablet,extended release insulin glargine 100 unit/mL (3 20 unit subcut BEDTIME 01/19/25 01/19/25 Unknown History mL) subcutaneous pen (Lantus Solostar U-100 Insulin) insulin lispro 100 unit/mL 1 sliding scale dose subcut 01/19/25 01/19/25 Unknown History subcutaneous pen (Humalog KwikPen USEASDIRECTD (U-100) Insulin) labetalol 100 mg tablet 100 mg PO DAILY 01/19/25 01/19/25 Unknown History levothyroxine 125 mcg tablet 125 mcg PO DAILY@0600 01/19/25 01/19/25 Unknown History magnesium hydroxide 400 mg/5 mL 5 ml PO DAILY PRN Constipation 01/19/25 01/19/25 Unknown History oral suspension (Milk of Magnesia) magnesium oxide 400 mg PO DAILY 01/19/25 01/19/25 Unknown History polyethylene glycol 3350 17 17 g PO DAILY 01/19/25 01/19/25 Unknown History gram/dose oral powder (Miralax) sennosides 8.6 mg tablet (senna) 17.2 mg PO BEDTIME Constipation 01/19/25 01/19/25 Unknown History Physical Exam Vital Signs: Last Vital Signs Temp 97.1 F 02/22/25 11:46 Pulse 79 02/22/25 11:46 Resp 18 02/22/25 11:46 BP 165/73 H 02/22/25 13:23 Pulse Ox 98 02/22/25 11:46 O2 Del Method Room Air 02/22/25 11:46 O2 Flow Rate 2 02/14/25 19:00 FiO2 21 02/14/25 17:00 BMI result Body Mass Index 23.0 Const Other: very frail looking, not communicative, seems very drowsy and mildly short of breath General: cooperative, healthy appearing, comfortable, no acute distress, well developed, alert, awake, ill appearing, lethargic and other ( encephalopathic) Nutritional Appearance: average body habitus Orientation/consciousness: patient oriented x3, lethargic and Other orientation findings ( oriented) HEENT Other: Nasogastric feeding tube in place, functioning Head: Yes normal to inspection, Yes normocephalic and Yes atraumatic Eyes General: appearance normal, both eyes and all related structures Sclerae: sclerae normal EOM: EOMs intact bilaterally Neck Other: No obviously apparent JVD Neck: Yes normal visual inspection, Yes full ROM, Yes no lymphadenopathy, Yes no meningeal signs, Yes trachea midline and Yes supple Lymphatic: no lymphadenopathy noted Chest Chest palpation & inspection: normal inspection of the chest Resp Other: mildly short of breath Effort & Inspection: normal respiratory effort, no audible wheezes, no cough, no respiratory distress and no use of accessory muscles Auscultation: clear to auscultation bilaterally, crackles (Mild bilateral) and diminished lung sounds Cardio Palpation: normal PMI and no palpable S3 Rate: regular rate and tachycardic Rhythm: regular rhythm and abnormal rhythm irregularly irregular Heart sounds: S1 normal heart sound present, S2 normal heart sound present, no gallops, no murmurs and no rubs GI Other: no obvious surgical scars on the left upper quadrant Inspection: Yes normal to inspection, No Abdominal wall edema and No distended Palpation (GI): Soft to palpation, not firm, nontender, no guarding, not rigid and Other GI palpation findings present ( Nontender) Auscultation: normal bowel sounds Back/Spine/Pelvis Other: unremarkable Skin Other: Pale and diaphoretic General skin exam: no rashes or lesions noted and other ( warm) Neuro Other: Encephalopathic General: patient oriented x3, tone normal, moves all extremities and no meningeal signs Motor exam (neuro): no asterixis Extrem Other: appreciable trace pitting edema to bilateral shins General: Yes normal to inspection, Yes full ROM, Yes capillary refill normal, Yes no clubbing, cyanosis or edema, Yes no pedal edema, No clubbing, No cyanosis and Yes edema (Trace bilateral) Psych Other: unable to assess Appearance: grossly normal Results Lab Results 02/22/25 06:42 02/22/25 06:42 Lab results: Chemistry 02/20/25 02/21/25 02/22/25 06:35 06:27 06:42 Sodium 135 132 L 138 Potassium 4.3 5.3 H D 3.9 D Carbon Dioxide 27 BUN 72 H 106 H 68 H Creatinine 3.71 H 5.00 H* 3.52 H Calcium 9.2 8.5 D 9.0 Hematology 02/20/25 02/21/25 02/22/25 06:35 06:27 06:42 WBC 8.4 9.4 9.4 Hgb 8.1 L 7.2 L 7.4 L Plt Count 240 256 268 Assessment and Plan (1) Acute kidney injury superimposed on CKD: Status: Acute Plan 79-year-old woman with acute kidney injury superimposed on chronic kidney disease due to tubular injury Urine sediments bland therefore glomerular nephritis or interstitial disease ruled out; Seen on HD Shall keep on MWF HD; Will need Permcath if decision is to continue HD;Continue rest of current management Procedures Date of Service Date of Service: 02/22/25
--- NOTE | 2025-02-22 14:56 | PM.CNNEP ---
History of Present Illness Reason for Consult Consult date: 02/22/25 Reason for consult: KAI on adv CKD and now ESRD Chief Complaint Chief complaint: respiratory Failure History of Present Illness Narrative: [facility] consulted to take over renal care for this PT who has been followed by Dr Colvin for years and acutually had been getting PT evaluated to start PD as an outpt Rec reveiwed and she had adv CKD 4 (eGFR 17) and was adm to [facility] with resp failure requiring ICU adm [facility]. She was adm 01/19/25 and has had compl hosp course with resp fialure req [facility] vent and [facility] CVA. Her daughter commmunicated that PT is under the care of AARON ( Dr Colvin) and so her renal care has been transferred over to [facility] [place] Her last HD was yesterday--she is on mwf schedule Daughter is at the bedside and very invovled in Mom care Richard states she and Mom have visited with [facility] RN educatoir re: Dialysis modality options and want to do PD PMH as noted with DM/HTN/CHF and now CVA Review of Systems Review of Systems Yes all other systems are reviewed and are negative, Unobtainable due to mental condition and Unobtainable due to mental status PMFSH Past Medical History Medical History (Updated 02/21/25 @ 12:09 by Monica Winter MD) Dementia Right hemiparesis Cerebrovascular accident Toe amputee Mild cognitive impairment Tremors of nervous system Obstructive sleep apnea C. difficile colitis Septic shock Arthritis Hyperlipidemia CKD (chronic kidney disease) Hypothyroid HTN (hypertension) CAD (coronary artery disease) Diabetes Amputation of toe H/O nephrolithotomy with removal of calculi Family History Family History Mother FH: lung cancer Father No problems noted. Family/Other Heart disease Family/Other Bladder cancer Surgical History Surgical History Hx of heart artery stent Social History Social History Household Members: Family Housing: House Do you presently have visiting nurse or other home services: Yes ([facility]NA) Alcohol intake: never Patient Tobacco Use Status: Never used Tobacco Advance Directives Date on File: 01/28/25 Meds Allergies Allergy/AdvReac Type Severity Reaction Status Date / Time pioglitazone [From Actos] Allergy Severe Anaphylaxis Verified 01/19/25 07:00 Active Medications: Current Medications Amlodipine Besylate (Amlodipine Besylate 10 Mg Tablet) 10 mg G-TUBE DAILY [facility]; Protocol Last Admin: 02/22/25 08:02 Dose: Not Given Atorvastatin Calcium (Atorvastatin Calcium 80 Mg Tablet) 80 mg G-TUBE BEDTIME [facility] Last Admin: 02/21/25 19:47 Dose: 80 mg Chlorhexidine Gluconate (Chlorhexidine Gluc Oral Rinse 15 Ml Mouthwash) 15 ml BUCCAL TID [facility] Last Admin: 02/22/25 14:45 Dose: Not Given Clonidine HCl (Clonidine Hcl 0.1 Mg Tablet) 0.1 mg G-TUBE BID [facility]; Protocol Last Admin: 02/22/25 08:02 Dose: Not Given Dextrose (Dextrose 50 % 25 Gm/50 Ml Syringe) 25 gm IVPUSH Q15M PRN; Protocol PRN Reason: per Hypoglycemia Standing Ord. Glucose (Glucose Gel 15 Gm Gel..Gram.) 15 gm PO Q15M PRN; Protocol PRN Reason: per Hypoglycemia Standing Ord. Hydralazine HCl (Hydralazine Hcl 20 Mg/Ml Vial) 10 mg IVPUSH Q4H PRN; Protocol PRN Reason: Hypertension Last Admin: 02/15/25 06:06 Dose: 10 mg Hydralazine HCl (Hydralazine Hcl 50 Mg Tablet) 50 mg G-TUBE QID [facility]; Protocol Last Admin: 02/22/25 13:23 Dose: 50 mg Insulin Human Lispro (Insulin Lispro 100 Unit/Ml 3 Ml Vial) 0 unit SUBCUT Q6H [facility]; Protocol Last Admin: 02/22/25 12:39 Dose: Not Given Isosorbide Dinitrate (Isosorbide Dinitrate 20 Mg Tablet) 20 mg G-TUBE 0800,1300,1800 [facility]; Protocol Last Admin: 02/22/25 13:23 Dose: 20 mg Labetalol HCl (Labetalol Hcl 100 Mg Tablet) 100 mg G-TUBE DAILY [facility]; Protocol Last Admin: 02/22/25 08:03 Dose: Not Given Levothyroxine Sodium (Levothyroxine Sodium 125 Mcg Tablet) 125 mcg G-TUBE DAILY@0600 [facility] Last Admin: 02/22/25 05:50 Dose: Not Given Omeprazole (Omeprazole/Na Bicarb Oral Susp 20 Mg/10 Ml Ud Cup) 40 mg PO BID@0630,1630 [facility] Last Admin: 02/21/25 06:08 Dose: 40 mg Pantoprazole Sodium (Pantoprazole Sodium 40 Mg/10 Ml Vial) 40 mg IVPUSH BID@0630,1630 [facility] Last Admin: 02/22/25 05:51 Dose: 40 mg Sodium Chloride (0.9 % Sodium Chloride Flush 3 Ml Syringe) 3 ml IVFLUSH QSHIFT [facility] Last Admin: 02/22/25 08:04 Dose: 3 ml Home Medications ?Medication ?Instructions ?Recorded ?Confirmed ?Last Taken ?Type alpha lipoic acid 200 mg capsule 600 mg PO BEDTIME 03/13/22 01/19/25 Unknown History bumetanide 1 mg tablet 1 mg PO Q48H 03/13/22 01/19/25 Unknown History hydralazine 50 mg tablet 75 mg PO QID 03/13/22 01/19/25 Unknown History ascorbic acid (vitamin C) 250 mg 250 mg PO BID 01/13/23 01/19/25 Unknown History tablet mecobalamin (vitamin B12) 1,000 1,000 mcg PO DAILY 01/13/23 01/19/25 Unknown History mcg chewable tablet omeprazole 20 mg capsule,delayed 40 mg PO DAILY@0630 01/13/23 01/19/25 Unknown History release sodium bicarbonate 650 mg tablet 1,300 mg PO TID 01/13/23 01/19/25 Unknown History amlodipine 10 mg tablet 10 mg PO DAILY 04/10/24 01/19/25 Unknown History atorvastatin 20 mg tablet 80 mg PO BEDTIME 04/10/24 01/19/25 Unknown History gabapentin 600 mg tablet 600 mg PO BEDTIME 04/10/24 01/19/25 Unknown History icosapent ethyl 1 gram capsule 1 g PO BID 08/30/24 01/19/25 Unknown History (Vascepa) acetaminophen 325 mg tablet 650 mg PO Q6H PRN Pain/Fever 01/19/25 01/19/25 Unknown History apixaban 2.5 mg tablet (Eliquis) 2.5 mg PO BID 01/19/25 01/19/25 Unknown History bisacodyl 10 mg rectal suppository 10 mg MS DAILY PRN Constipation 01/19/25 01/19/25 Unknown History cholecalciferol (vitamin D3) 50 50 mcg PO DAILY 01/19/25 01/19/25 Unknown History mcg (2,000 unit) tablet (Vitamin D3) clonidine HCl 0.1 mg tablet 0.1 mg PO BID 01/19/25 01/19/25 Unknown History docusate sodium 100 mg capsule 100 mg PO DAILY 01/19/25 01/19/25 Unknown History ferrous sulfate 137 mg (45 mg 137 mg PO DAILY 01/19/25 01/19/25 Unknown History iron) tablet,extended release insulin glargine 100 unit/mL (3 20 unit subcut BEDTIME 01/19/25 01/19/25 Unknown History mL) subcutaneous pen (Lantus Solostar U-100 Insulin) insulin lispro 100 unit/mL 1 sliding scale dose subcut 01/19/25 01/19/25 Unknown History subcutaneous pen (Humalog KwikPen USEASDIRECTD (U-100) Insulin) labetalol 100 mg tablet 100 mg PO DAILY 01/19/25 01/19/25 Unknown History levothyroxine 125 mcg tablet 125 mcg PO DAILY@0600 01/19/25 01/19/25 Unknown History magnesium hydroxide 400 mg/5 mL 5 ml PO DAILY PRN Constipation 01/19/25 01/19/25 Unknown History oral suspension (Milk of Magnesia) magnesium oxide 400 mg PO DAILY 01/19/25 01/19/25 Unknown History polyethylene glycol 3350 17 17 g PO DAILY 01/19/25 01/19/25 Unknown History gram/dose oral powder (Miralax) sennosides 8.6 mg tablet (senna) 17.2 mg PO BEDTIME Constipation 01/19/25 01/19/25 Unknown History Physical Exam Vital Signs: Last Vital Signs Temp 97.1 F 02/22/25 11:46 Pulse 79 02/22/25 11:46 Resp 18 02/22/25 11:46 BP 165/73 H 02/22/25 13:23 Pulse Ox 98 02/22/25 11:46 O2 Del Method Room Air 02/22/25 11:46 O2 Flow Rate 2 02/14/25 19:00 FiO2 21 02/14/25 17:00 BMI result Body Mass Index 23.0 Const General: cooperative, healthy appearing, comfortable, no acute distress, well developed, alert, awake, ill appearing, lethargic and other ( encephalopathic) Nutritional Appearance: average body habitus Orientation/consciousness: patient oriented x3, lethargic and Other orientation findings ( oriented) HEENT Head: Yes normal to inspection, Yes normocephalic and Yes atraumatic Eyes General: appearance normal, both eyes and all related structures Sclerae: sclerae normal EOM: EOMs intact bilaterally Neck Neck: Yes normal visual inspection, Yes full ROM, Yes no lymphadenopathy, Yes no meningeal signs, Yes trachea midline and Yes supple Lymphatic: no lymphadenopathy noted Chest Chest palpation & inspection: normal inspection of the chest Resp Effort & Inspection: normal respiratory effort, no audible wheezes, no cough, no respiratory distress and no use of accessory muscles Auscultation: clear to auscultation bilaterally, crackles (Mild bilateral) and diminished lung sounds Cardio Palpation: normal PMI and no palpable S3 Rate: regular rate and tachycardic Rhythm: regular rhythm and abnormal rhythm irregularly irregular Heart sounds: S1 normal heart sound present, S2 normal heart sound present, no gallops, no murmurs and no rubs GI Inspection: Yes normal to inspection, No Abdominal wall edema and No distended Palpation (GI): Soft to palpation, not firm, nontender, no guarding, not rigid and Other GI palpation findings present ( Nontender) Auscultation: normal bowel sounds Skin General skin exam: no rashes or lesions noted and other ( warm) Neuro General: patient oriented x3, tone normal, moves all extremities and no meningeal signs Motor exam (neuro): no asterixis Extrem General: Yes normal to inspection, Yes full ROM, Yes capillary refill normal, Yes no clubbing, cyanosis or edema, Yes no pedal edema, No clubbing, No cyanosis and Yes edema (Trace bilateral) Psych Appearance: grossly normal Results Lab Results 02/22/25 06:42 02/22/25 06:42 Lab results: Chemistry 02/20/25 02/21/25 02/22/25 06:35 06:27 06:42 Sodium 135 132 L 138 Potassium 4.3 5.3 H D 3.9 D Carbon Dioxide 27 BUN 72 H 106 H 68 H Creatinine 3.71 H 5.00 H* 3.52 H Calcium 9.2 8.5 D 9.0 Hematology 02/20/25 02/21/25 02/22/25 06:35 06:27 06:42 WBC 8.4 9.4 9.4 Hgb 8.1 L 7.2 L 7.4 L Plt Count 240 256 268 Assessment and Plan (1) Acute kidney injury superimposed on CKD: Status: Acute Plan 1. KAI on adv CKD and now ESRD and Dialysis dependent 2. Anemia: epo and ques Fe def 3. MBD of CKD: need to check PTH/vit D and Tx accordingly 4. Hemoaccess: still has temp line and needs PERMCATH which is scheduled for 02/23 5. Deconditioned: D/C disposition: will need to go Rehab and [facility] as we have HD on site; transition to PD will need to be put on hold and only once she gets stronger can we look at transition to PD REC: cont HDS 3x/wk; epo as ordered; check PTH Will follow with team D/W Dr Yun and daughter in detail Procedures Date of Service Date of Service: 02/22/25
--- NOTE | 2025-02-22 17:13 | MHC.SL.SWA ---
Speech Pathologist Impression: Risk of Aspiration Due to: Medically Fragile Neurological Condition History of Pneumonia Hx of Recent Extubation Reduced Cognition Dysphasia Diet Status: Liquid Consistency and Strategies for Safe Swallow: Liquid Intake Recommendation: [place] Thick Liquid Intake Strategies: Small Sips Solid Food Consistency: Dietary Recommendations: Pureed (NDD1) Additional Modifications to Solid Foods: Patient will need full assist at meals with strict aspiration precautions. Do not attempt if patient is lethargic, had reduced responsiveness. Oral Medication Intake: Crushed with Puree Please contact the pharmacy regarding appropriate crushable or liquid drug formulations that are available whenever modified delivery is recommended. Compensatory Strategies and Precautions to be Taken for Safe Swallow: Sitting Upright (90 deg) No Straw Liquids from Cup Liquids from Spoon Small Bites and Sips Alternate Liquids/Solids Rate of Ingestion Change Oral Check Supervision While Eating and Drinking for Safe Swallow: Total Assistance (1:1) Foods to Avoid: Single consistency to begin diet, may be able to advance if able to sustain intake. Swallowing Recommended Treatments: Compens. Strategy Educat. Recommendation for Speech: Inpatient Speech Therapy Speech Therapy through [facility] Speech Therapy through Rehab Facility Comment: Patient presented as minimally but appropriately verbal at times today, and able to follow simple directions. Patient presented with generalized weakness, but able to move all oral structures. Patient tolerated trials of Puree and nectar thick juice with no clinical signs of aspiration. Presents with a mild oral pharyngeal dysphagia, but continues at risk for aspiration given fragile medical state. Recommend START/UPGRADE diet to PUREE (NDD1) with NECTAR THICK liquids, pills crushed in puree. Patient will require 1-1 feeding with strict aspiration precautions. Do not attempt if patient is lethargic, has decreased engagement/responsiveness. Discontinue with clinical signs of aspiration. PREFINISH OPERATOR will continue to follow. MD notified in person (was present at end of eval) RN messaged. Frequency/Duration: Daily M-F Date Range for Service Req: Timeline to reassess: Agricultural Appraiser Clinican/Clinical Fellow: No Supervisory Statement: I have reviewed and agree with the student/clinical fellow's documentation: N/A Speech Language Pathologist: Carole Waldron M.A., CCC-PREFINISH OPERATOR
[2025-02-23] VITALS (18 sets, daily range): BP systolic 143–190; BP diastolic 55–90; PULSE 66–110; RESP 14–20; TEMP 36.3–37.4; O2SAT 97–100
[2025-02-23] MEDS: Insulin Lispro 100 UNIT/ML 3 ML VIAL SUBCUT ×2 (00:01→18:19)
[2025-02-23] MEDS: 0.9 % Sodium Chloride Flush 3 ML SYRINGE IVFLUSH ×4 (00:02→22:12)
[2025-02-23 01:14] LABS: Glucose, Whole Blood 152 mg/dL (60-115)
[2025-02-23] MEDS: HYDROmorphone HCl 0.5 MG/0.5 ML SYRINGE 0.25 MG IVPUSH (01:35)
[2025-02-23] MEDS: hydrALAZINE HCl 20 MG/ML VIAL 10 MG IVPUSH (04:32)
[2025-02-23] MEDS: Pantoprazole Sodium 40 MG/10 ML VIAL IVPUSH ×2 (05:37→18:18)
[2025-02-23] MEDS: ondansetron HCL 4 MG/2 ML VIAL IVPUSH (05:47)
[2025-02-23 08:15] LABS: Glucose, Whole Blood 138 mg/dL (60-115)
--- NOTE | 2025-02-23 09:23 | HO.PM.IMPN ---
Subjective Subjective Date of Service: 02/23/25 Review of Systems Review of Systems: Yes Unobtainable due to mental condition Physical Exam Vital Signs: Vital Signs: Last Vital Signs Temp 97.3 F 02/23/25 07:08 Pulse 106 H 02/23/25 07:08 Resp 18 02/23/25 07:08 BP 163/75 H 02/23/25 07:08 Pulse Ox 97 02/23/25 07:08 O2 Del Method Room Air 02/23/25 07:08 O2 Flow Rate 2 02/14/25 19:00 FiO2 21 02/14/25 17:00 BMI result Body Mass Index 23.0 Alert tracking, following commands of blinking and closing eyes. dense right hemiplegia, weakness on left, not vocalizing Objective Data Active Medications Amlodipine Besylate (Amlodipine Besylate 10 Mg Tablet) 10 mg G-TUBE DAILY [facility]; Protocol Last Admin: 02/23/25 09:13 Dose: Not Given Documented By: MICHELE Non-Admin Reason: NPO Atorvastatin Calcium (Atorvastatin Calcium 80 Mg Tablet) 80 mg G-TUBE BEDTIME [facility] Last Admin: 02/22/25 22:41 Dose: Not Given Documented By: BRONWYN Non-Admin Reason: inability to safely swallow Chlorhexidine Gluconate (Chlorhexidine Gluc Oral Rinse 15 Ml Mouthwash) 15 ml BUCCAL TID [facility] Last Admin: 02/23/25 09:13 Dose: Not Given Documented By: MICHELE Non-Admin Reason: difficulty with swishing and spitting Clonidine HCl (Clonidine Hcl 0.1 Mg Tablet) 0.1 mg G-TUBE BID [facility]; Protocol Last Admin: 02/23/25 09:14 Dose: Not Given Documented By: MICHELE Non-Admin Reason: NPO Dextrose (Dextrose 50 % 25 Gm/50 Ml Syringe) 25 gm IVPUSH Q15M PRN; Protocol PRN Reason: per Hypoglycemia Standing Ord. Glucose (Glucose Gel 15 Gm Gel..Gram.) 15 gm PO Q15M PRN; Protocol PRN Reason: per Hypoglycemia Standing Ord. Hydralazine HCl (Hydralazine Hcl 20 Mg/Ml Vial) 10 mg IVPUSH Q4H PRN; Protocol PRN Reason: Hypertension Last Admin: 02/23/25 04:32 Dose: 10 mg Documented By: VALERIA Hydralazine HCl (Hydralazine Hcl 50 Mg Tablet) 50 mg G-TUBE QID [facility]; Protocol Last Admin: 02/23/25 09:14 Dose: Not Given Documented By: MICHELE Non-Admin Reason: NPO Insulin Human Lispro (Insulin Lispro 100 Unit/Ml 3 Ml Vial) 0 unit SUBCUT Q6H [facility]; Protocol Last Admin: 02/23/25 05:33 Dose: Not Given Documented By: VALERIA Non-Admin Reason: POC 138 Isosorbide Dinitrate (Isosorbide Dinitrate 20 Mg Tablet) 20 mg G-TUBE 0800,1300,1800 [facility]; Protocol Last Admin: 02/23/25 09:13 Dose: Not Given Documented By: MICHELE Non-Admin Reason: NPO Labetalol HCl (Labetalol Hcl 100 Mg Tablet) 100 mg G-TUBE DAILY [facility]; Protocol Last Admin: 02/23/25 09:14 Dose: Not Given Documented By: MICHELE Non-Admin Reason: NPO Levothyroxine Sodium (Levothyroxine Sodium 125 Mcg Tablet) 125 mcg G-TUBE DAILY@0600 [facility] Last Admin: 02/23/25 05:42 Dose: Not Given Documented By: VALERIA Non-Admin Reason: Nausea Omeprazole (Omeprazole/Na Bicarb Oral Susp 20 Mg/10 Ml Ud Cup) 40 mg PO BID@0630,1630 [facility] Last Admin: 02/21/25 06:08 Dose: 40 mg Documented By: JOSE Pantoprazole Sodium (Pantoprazole Sodium 40 Mg/10 Ml Vial) 40 mg IVPUSH BID@0630,1630 [facility] Last Admin: 02/23/25 05:37 Dose: 40 mg Documented By: VALERIA Sodium Chloride (0.9 % Sodium Chloride Flush 3 Ml Syringe) 3 ml IVFLUSH QSHIFT [facility] Last Admin: 02/23/25 00:02 Dose: 3 ml Documented By: VALERIA Labs 02/22/25 06:42 02/22/25 06:42 Labs: Laboratory Results - last 24 hr 02/22/25 02/22/25 02/23/25 11:53 23:57 05:32 POC Glucose 197 H 152 H 138 H Assessment and Plan (1) Pulmonary aspiration: Status: Acute (2) ESRD on hemodialysis: Status: Acute (3) Renal failure: Status: Acute (4) Duodenal ulcer: Status: Acute (5) Acute on chronic anemia: Status: Acute Plan 79F PMH HTN, HLD, DM, CAD, CVA with right hemiparesis, CKD IV, hypothyroid, LUANA presented on 01/19/25 with AMS, hypoxia, chf. was intubated and admitted to ICU likely secondary to acute on chronic combined systolic and diastolic congestive heart failure, improved with diuresis, extubated on 01/22/2025, reintubated 01/29/25, extubated 02/14/25, further complicated by acute CVA with significant encephalopathy, dysphagia, right hemiplegia found on 04/08/25. course also complicated by GI bleed due to duodenal ulcer s'p embolization 01/30/25, also complicated by KAI/ATN started on HD 01/27/25. acute Toxic metabolic encephalopathy with new left-sided CVA on the background of prior CVA complicated by significant dysphagia altered, frail, not moving extremities, make eye contact and mumble yes\no on Statin continue Tube feeding not on ASA\Eliquis given GI bleed LEAD MANUFACTURING TECHNICIAN appreciated - now on pureed with nectar thick liquids neuro appreciated - eeg negative for seizure Upper GI bleed with acute blood loss anemia secondary to duodenal ulcer requiring embolization reported Lisa colored stool 02/20, monitor hgb continue PPI Acute on chronic combined systolic and diastolic congestive heart failure. improved Cardiology following continue antihypertensive regimen Acute hypoxic respiratory failure secondary to aspiration pneumonia requiring ventilatory support Resolved, extubated on 02/14/2025. Healthcare proxy/family chose DNI\DNR completed antibiotics Monitor KAI due to ATN in CKD IV hemodialysis. Nephrology following (sees Dr. Colvin outpatient, RTane to take over inpatient), on dialysis plan for permacath diabetes mellitus insulin. Prophylaxis: Compression therapy due to gi bleed DNR/DNI reason for continued hospitalization:will need permacath Quality Stroke Does the patient have a stroke diagnosis?: Yes Reason for No Anti-thrombotic by Day Two: N/A - Med Ordered VTE Prior VTE?: No VTE Risk Level:: Medical - moderate - high VTE Device Contraindication: N/A - Device Ordered VTE Drug Contraindication: Treatment Not Tolerated
[2025-02-23 11:40] LABS: Glucose, Whole Blood 185 mg/dL (60-115)
--- NOTE | 2025-02-23 12:13 | MHC.CLN ---
F/U PT TF ON HOLD R/T OR PROCEDURE-PLAN FOR PERMACATH NOTED NGT PULLED OUT 02/22/25 PROGRESS MAN RECOMMENDING PUREED WITH NT LIQ DIET IF TF TO RESUME; RECOMMEND RE-STARTING NEPRO AT MAX GOAL RATE 40ML/HR TO PROVIDE 1728KCALS, 78G PROTEIN (1.5G/KG), 698ML WATER FROM FORMULA HOLD FREE WATER FLUSHES AT THIS TIME R/T HX LOW SERUM NA MONITOR LYTES AND TF TOLERANCE CAN ALSO RESUME DIET WITH TF WILL REDUCE TF PO INTAKE IMPROVES RD CAN BE REACHED VIA TIGER CONNECT DURING OFF HOURS IF NEEDED
--- NOTE | 2025-02-23 12:39 | MHC.SLORD ---
Speech Language Pathology Order Status: Pt w/ NGT in place, PICTURE PAINTER recc'ed start diet Pureed solids/Clark Thick liquids yesterday. At this time TFs on hold and patient is NPO w/ plan for permacath. PICTURE PAINTER will continue to follow.
--- NOTE | 2025-02-23 15:57 | MHC.CM.PN ---
EMR reviewed and per MD rounds, pt is not medically cleared for discharge due to awaiting permacath placement.
[2025-02-23] MEDS: ceFAZolin Sodium/Dextrose,Iso 2 GM/50 ML PIGGYBACK IV (16:20)
[2025-02-23] MEDS: hydrALAZINE HCl 50 MG TABLET G-TUBE ×2 (18:18→22:11)
[2025-02-23] MEDS: Isosorbide Dinitrate 20 MG TABLET G-TUBE (18:19)
--- NOTE | 2025-02-23 18:56 | P.PNNP_ITS ---
Subjective Subjective Date of Service: 02/23/25 Interval history: Seen and examiend, events noted Pcath to be placed later today and HD reschedueld for 02/24 Physical Exam 2 Vital Signs: Vital Signs: Last Vital Signs Temp 99.3 F 02/23/25 14:59 Pulse 67 02/23/25 16:30 Resp 16 02/23/25 16:40 BP 190/67 H 02/23/25 18:19 Pulse Ox 100 02/23/25 16:40 O2 Del Method Room Air 02/23/25 16:40 O2 Flow Rate 2 02/14/25 19:00 FiO2 21 02/14/25 17:00 BMI result Body Mass Index 23.0 Const: General: cooperative, healthy appearing, comfortable, no acute distress, well developed, alert, awake, ill appearing, lethargic and other ( encephalopathic) Nutritional Appearance: average body habitus O rientation/consciousness: patient oriented x3, lethargic and Other orientation findings ( oriented) HEENT: Head: Yes normal to inspection, Yes normocephalic and Yes atraumatic Eyes: General: appearance normal, both eyes and all related structures S clerae: sclerae normal EOM: EOMs intact bilaterally Neck: Neck: Yes normal visual inspection, Yes full ROM, Yes no lymphadenopathy, Yes no meningeal signs, Yes trachea midline and Yes supple L ymphatic: no lymphadenopathy noted Chest: Chest palpation & inspection: normal inspection of the chest Resp: Effort & Inspection: normal respiratory effort, no audible wheezes, no cough, no respiratory distress and no use of accessory muscles Auscultation: clear to auscultation bilaterally, crackles (Mild bilateral) and diminished lung sounds Cardio: Palpation: normal PMI and no palpable S3 Rate: regular rate and tachycardic Rhythm: regular rhythm and abnormal rhythm irregularly irregular Heart sounds: S1 normal heart sound present, S2 normal heart sound present, no gallops, no murmurs and no rubs GI: Inspection: Yes normal to inspection, No Abdominal wall edema and No distended Palpation (GI): Soft to palpation, not firm, nontender, no guarding, not rigid and Other GI palpation findings present ( Nontender) A uscultation: normal bowel sounds Skin: General skin exam: no rashes or lesions noted and other ( warm) Neuro: General: patient oriented x3, tone normal, moves all extremities and no meningeal signs Motor exam (neuro): no asterixis Extrem: General: Yes normal to inspection, Yes full ROM, Yes capillary refill normal, Yes no clubbing, cyanosis or edema, Yes no pedal edema, No clubbing, No cyanosis and Yes edema (Trace bilateral) Psych: Appearance: grossly normal Objective Data Labs 02/22/25 06:42 02/22/25 06:42 Labs: Laboratory Results - last 24 hr 02/22/25 02/23/25 02/23/25 23:57 05:32 11:28 POC Glucose 152 H 138 H 185 H Microbiology Microbiology Results: Microbiology 01/19/25 07:38 Blood - Venous Blood Culture - Final No growth after 5 days. 01/19/25 07:14 Blood - Venous Blood Culture - Final No growth after 5 days. Procedures Date of Service Date of Service: 02/23/25 Assessment & Plan Assessment and plan (1) Acute kidney injury superimposed on CKD: Status: Acute Plan 1. KAI on adv CKD and now ESRD and Dialysis dependent 2. Anemia: epo and ques Fe def 3. MBD of CKD: need to check PTH/vit D and Tx accordingly 4. Hemoaccess: still has temp line and needs PERMCATH which is scheduled for 02/23 5. Deconditioned: D/C disposition: will need to go Rehab and [facility] as we have HD on site; transition to PD will need to be put on hold and only once she gets stronger can we look at transition to PD REC: cont HDS 3x/wk; epo as ordered; check PTH; Pcath later today and HD tomorrow Will follow with team Time Spent With Patient Time: Total time managing care of this patient today ____ minutes. Progress Note: Quality Stroke Does the patient have a stroke diagnosis?: Yes Reason for No Anti-thrombotic by Day Two: N/A - Med Ordered
[2025-02-23] MEDS: cloNIDine HCL 0.1 MG TABLET G-TUBE (22:11)
[2025-02-23] MEDS: Atorvastatin Calcium 80 MG TABLET G-TUBE (22:11)
[2025-02-24] MEDS: Insulin Lispro 100 UNIT/ML 3 ML VIAL SUBCUT ×3 (00:19→15:55)
[2025-02-24 02:02] LABS: Glucose, Whole Blood 178 mg/dL (60-115)
[2025-02-24 02:02] LABS: Glucose, Whole Blood 172 mg/dL (60-115)
[2025-02-24 04:00] VITALS: BP 172/78; PULSE 106; RESP 19; O2SAT 97
[2025-02-24] MEDS: Levothyroxine Sodium 125 MCG TABLET G-TUBE (05:50)
[2025-02-24] MEDS: Pantoprazole Sodium 40 MG/10 ML VIAL IVPUSH ×2 (05:50→15:55)
[2025-02-24 06:11] LABS: Glucose, Whole Blood 158 mg/dL (60-115)
[2025-02-24 06:52] LABS: Hematocrit 24.9 % (37.0-47.0); Mean Corpuscular HGB Conc 32.1 g/dl (31.0-35.0); Mean Corpuscular Hemoglobin 28.7 pg (27.0-33.0); Mean Corpuscular Volume 89.2 fL (80.0-98.0); Mean Platelet Volume 9.7 fL (9.4-12.3); Platelet Count 316 X10*3/uL (160-400); Red Blood Count 2.79 X10*6/uL (4.20-5.50); White Blood Count 4.3 X10*3/uL (4.8-10.8)
[2025-02-24 07:38] LABS: Anion Gap 21 (12-20); Blood Urea Nitrogen 71 mg/dL (9-16); Calcium 9.8 mg/dL (8.4-10.2); Carbon Dioxide 26 mmol/L (22-29); Chloride 99 mmol/L (96-108); Creatinine Clr Calc Pharmacy 10.8; Estimated Glomerular Filt Rate 10; Glucose Random 144 mg/dL (60-115); Potassium 4.5 mmol/L (3.3-5.1); Sodium 141 mmol/L (135-145)
[2025-02-24 08:36] LABS: Glucose, Whole Blood 150 mg/dL (60-115)
[2025-02-24] MEDS: 0.9 % Sodium Chloride Flush 3 ML SYRINGE IVFLUSH ×2 (09:43→19:36)
--- NOTE | 2025-02-24 09:53 | P.PNIM_ITS ---
Subjective Subjective Date of Service: 02/24/25 Review of Systems Review of Systems: Yes Unobtainable due to mental condition Physical Exam 2 Vital Signs: Vital Signs: Last Vital Signs Temp 97.4 F 02/23/25 23:53 Pulse 106 H 02/24/25 04:00 Resp 19 02/24/25 04:00 BP 172/78 H 02/24/25 04:00 Pulse Ox 97 02/24/25 04:00 O2 Del Method Room Air 02/24/25 04:00 O2 Flow Rate 2 02/14/25 19:00 FiO2 21 02/14/25 17:00 BMI result Body Mass Index 23.0 Const: General: cooperative, healthy appearing, comfortable, no acute distress, well developed, alert, awake, ill appearing, lethargic and other ( encephalopathic) Nutritional Appearance: average body habitus O rientation/consciousness: patient oriented x3, lethargic and Other orientation findings ( oriented) HEENT: Head: Yes normal to inspection, Yes normocephalic and Yes atraumatic Eyes: General: appearance normal, both eyes and all related structures S clerae: sclerae normal EOM: EOMs intact bilaterally Neck: Neck: Yes normal visual inspection, Yes full ROM, Yes no lymphadenopathy, Yes no meningeal signs, Yes trachea midline and Yes supple L ymphatic: no lymphadenopathy noted Chest: Chest palpation & inspection: normal inspection of the chest Resp: Effort & Inspection: normal respiratory effort, no audible wheezes, no cough, no respiratory distress and no use of accessory muscles Auscultation: clear to auscultation bilaterally, crackles (Mild bilateral) and diminished lung sounds Cardio: Palpation: normal PMI and no palpable S3 Rate: regular rate and tachycardic Rhythm: regular rhythm and abnormal rhythm irregularly irregular Heart sounds: S1 normal heart sound present, S2 normal heart sound present, no gallops, no murmurs and no rubs GI: Inspection: Yes normal to inspection, No Abdominal wall edema and No distended Palpation (GI): Soft to palpation, not firm, nontender, no guarding, not rigid and Other GI palpation findings present ( Nontender) A uscultation: normal bowel sounds Skin: General skin exam: no rashes or lesions noted and other ( warm) Neuro: General: patient oriented x3, tone normal, moves all extremities and no meningeal signs Motor exam (neuro): no asterixis Extrem: General: Yes normal to inspection, Yes full ROM, Yes capillary refill normal, Yes no clubbing, cyanosis or edema, Yes no pedal edema, No clubbing, No cyanosis and Yes edema (Trace bilateral) Psych: Appearance: grossly normal Objective Data Active Medications Amlodipine Besylate (Amlodipine Besylate 10 Mg Tablet) 10 mg G-TUBE DAILY [facility]; Protocol Last Admin: 02/23/25 09:13 Dose: Not Given Documented By: MICHELE Non-Admin Reason: NPO Atorvastatin Calcium (Atorvastatin Calcium 80 Mg Tablet) 80 mg G-TUBE BEDTIME [facility] Last Admin: 02/23/25 22:11 Dose: 80 mg Documented By: VALERIA Chlorhexidine Gluconate (Chlorhexidine Gluc Oral Rinse 15 Ml Mouthwash) 15 ml BUCCAL TID [facility] Last Admin: 02/24/25 09:43 Dose: Not Given Documented By: MATT Non-Admin Reason: Patient Refused Clonidine HCl (Clonidine Hcl 0.1 Mg Tablet) 0.1 mg G-TUBE BID [facility]; Protocol Last Admin: 02/23/25 22:11 Dose: 0.1 mg Documented By: VALERIA Dextrose (Dextrose 50 % 25 Gm/50 Ml Syringe) 25 gm IVPUSH Q15M PRN; Protocol PRN Reason: per Hypoglycemia Standing Ord. Glucose (Glucose Gel 15 Gm Gel..Gram.) 15 gm PO Q15M PRN; Protocol PRN Reason: per Hypoglycemia Standing Ord. Hydralazine HCl (Hydralazine Hcl 20 Mg/Ml Vial) 10 mg IVPUSH Q4H PRN; Protocol PRN Reason: Hypertension Last Admin: 02/23/25 04:32 Dose: 10 mg Documented By: VALERIA Hydralazine HCl (Hydralazine Hcl 50 Mg Tablet) 50 mg G-TUBE QID [facility]; Protocol Last Admin: 02/23/25 22:11 Dose: 50 mg Documented By: VALERIA Insulin Human Lispro (Insulin Lispro 100 Unit/Ml 3 Ml Vial) 0 unit SUBCUT Q6H [facility]; Protocol Last Admin: 02/24/25 05:50 Dose: 2 unit Documented By: VALERIA Isosorbide Dinitrate (Isosorbide Dinitrate 20 Mg Tablet) 20 mg G-TUBE 0800,1300,1800 [facility]; Protocol Last Admin: 02/24/25 09:43 Dose: Not Given Documented By: MATT Non-Admin Reason: Physician Approved Labetalol HCl (Labetalol Hcl 100 Mg Tablet) 100 mg G-TUBE DAILY [facility]; Protocol Last Admin: 02/23/25 09:14 Dose: Not Given Documented By: MICHELE Non-Admin Reason: NPO Levothyroxine Sodium (Levothyroxine Sodium 125 Mcg Tablet) 125 mcg G-TUBE DAILY@0600 [facility] Last Admin: 02/24/25 05:50 Dose: 125 mcg Documented By: VALERIA Omeprazole (Omeprazole/Na Bicarb Oral Susp 20 Mg/10 Ml Ud Cup) 40 mg PO BID@0630,1630 [facility] Last Admin: 02/21/25 06:08 Dose: 40 mg Documented By: JOSE Pantoprazole Sodium (Pantoprazole Sodium 40 Mg/10 Ml Vial) 40 mg IVPUSH BID@0630,1630 [facility] Last Admin: 02/24/25 05:50 Dose: 40 mg Documented By: VALERIA Sodium Chloride (0.9 % Sodium Chloride Flush 3 Ml Syringe) 3 ml IVFLUSH QSHIFT [facility] Last Admin: 02/24/25 09:43 Dose: 3 ml Documented By: MATT Labs 02/24/25 06:34 02/24/25 06:34 Labs: Laboratory Results - last 24 hr 02/23/25 02/23/25 02/24/25 11:28 18:12 00:13 MCV MCH MCHC RDW Plt Count MPV Absolute Nucleated RBC Nucleated RBC % (auto) Anion Gap Estim Creat Clear Calc Estimated GFR POC Glucose 185 H 178 H 172 H Random Glucose Calcium 02/24/25 02/24/25 02/24/25 05:26 06:34 07:26 MCV 89.2 MCH 28.7 MCHC 32.1 RDW 14.0 Plt Count 316 MPV 9.7 Absolute Nucleated RBC 0.000 Nucleated RBC % (auto) 0.0 Anion Gap 21 H Estim Creat Clear Calc 10.8 Estimated GFR 10 POC Glucose 158 H 150 H Random Glucose 144 H Calcium 9.8 D Assessment and Plan (1) Pulmonary aspiration: Status: Acute (2) ESRD on hemodialysis: Status: Acute (3) Renal failure: Status: Acute (4) Duodenal ulcer: Status: Acute (5) Acute on chronic anemia: Status: Acute Plan 79F PMH HTN, HLD, DM, CAD, CVA with right hemiparesis, CKD IV, hypothyroid, LUANA presented on 01/19/25 with AMS, hypoxia, chf. was intubated and admitted to ICU likely secondary to acute on chronic combined systolic and diastolic congestive heart failure, improved with diuresis, extubated on 01/22/2025, reintubated 01/29/25, extubated 02/14/25, further complicated by acute CVA with significant encephalopathy, dysphagia, right hemiplegia found on 04/08/25. course also complicated by GI bleed due to duodenal ulcer s'p embolization 01/30/25, also complicated by KAI/ATN started on HD 01/27/25. acute Toxic metabolic encephalopathy with new left-sided CVA on the background of prior CVA complicated by significant dysphagia altered, frail, not moving extremities, make eye contact and mumble yes\no on Statin continue Tube feeding not on ASA\Eliquis given GI bleed EXTENSION SERVICE SPECIALIST appreciated - now on pureed with nectar thick liquids neuro appreciated - eeg negative for seizure Upper GI bleed with acute blood loss anemia secondary to duodenal ulcer requiring embolization reported Lisa colored stool 02/20, monitor hgb - stable continue PPI Acute on chronic combined systolic and diastolic congestive heart failure. improved Cardiology following continue antihypertensive regimen Acute hypoxic respiratory failure secondary to aspiration pneumonia requiring ventilatory support Resolved, extubated on 02/14/2025. Healthcare proxy/family chose DNI\DNR completed antibiotics Monitor KAI due to ATN in CKD IV hemodialysis. Nephrology following (sees Dr. Colvin outpatient, RTane to take over inpatient), on dialysis s/p permacath diabetes mellitus insulin. Prophylaxis: Compression therapy due to gi bleed DNR/DNI reason for continued hospitalization:placement Quality Stroke Does the patient have a stroke diagnosis?: Yes Reason for No Anti-thrombotic by Day Two: N/A - Med Ordered VTE Prior VTE?: No VTE Risk Level:: Medical - moderate - high VTE Device Contraindication: N/A - Device Ordered VTE Drug Contraindication: Treatment Not Tolerated
[2025-02-24 11:53] VITALS: BP 152/58; PULSE 135; RESP 20; TEMP 36.2; O2SAT 98
[2025-02-24 12:20] LABS: Glucose, Whole Blood 160 mg/dL (60-115)
[2025-02-24 15:45] VITALS: BP 156/82; PULSE 115; RESP 18; TEMP 37.3; O2SAT 97
[2025-02-24] MEDS: hydrALAZINE HCl 50 MG TABLET G-TUBE ×2 (16:18→19:35)
[2025-02-24 18:56] LABS: Glucose, Whole Blood 151 mg/dL (60-115)
[2025-02-24] MEDS: cloNIDine HCL 0.1 MG TABLET G-TUBE (19:35)
[2025-02-24] MEDS: Atorvastatin Calcium 80 MG TABLET G-TUBE (19:35)
[2025-02-24 19:37] VITALS: BP 189/76; PULSE 114; RESP 16; TEMP 36.7; O2SAT 98
[2025-02-24 23:29] VITALS: BP 171/74; PULSE 113; RESP 96; TEMP 36.7; O2SAT 97
[2025-02-25] MEDS: Insulin Lispro 100 UNIT/ML 3 ML VIAL SUBCUT ×3 (00:59→13:25)
[2025-02-25 03:38] VITALS: BP 156/78; PULSE 108; RESP 18; TEMP 36.3; O2SAT 98
[2025-02-25 05:13] LABS: Glucose, Whole Blood 153 mg/dL (60-115)
[2025-02-25] MEDS: Levothyroxine Sodium 125 MCG TABLET G-TUBE (06:42)
[2025-02-25] MEDS: Pantoprazole Sodium 40 MG/10 ML VIAL IVPUSH ×2 (06:43→16:25)
[2025-02-25 07:51] VITALS: BP 155/77; PULSE 108; RESP 18; TEMP 36.9; O2SAT 98
[2025-02-25 08:19] LABS: Hematocrit 26.4 % (37.0-47.0); Hemoglobin 8.4 g/dl (12.0-16.0); Mean Corpuscular HGB Conc 31.8 g/dl (31.0-35.0); Mean Corpuscular Hemoglobin 28.9 pg (27.0-33.0); Mean Corpuscular Volume 90.7 fL (80.0-98.0); Mean Platelet Volume 9.8 fL (9.4-12.3); Platelet Count 352 X10*3/uL (160-400); Red Blood Count 2.91 X10*6/uL (4.20-5.50); Red Cell Distribution Width 14.3 % (11.0-16.0); White Blood Count 11.6 X10*3/uL (4.8-10.8)
[2025-02-25 08:43] LABS: Anion Gap 22 (12-20); Blood Urea Nitrogen 56 mg/dL (9-16); Calcium 9.5 mg/dL (8.4-10.2); Carbon Dioxide 26 mmol/L (22-29); Chloride 97 mmol/L (96-108); Creatinine Clr Calc Pharmacy 11.3; Estimated Glomerular Filt Rate 11; Glucose Random 167 mg/dL (60-115); Potassium 4.7 mmol/L (3.3-5.1); Sodium 140 mmol/L (135-145)
--- NOTE | 2025-02-25 08:53 | HO.PM.IMPN ---
Subjective Subjective Date of Service: 02/25/25 Review of Systems Review of Systems: Yes Unobtainable due to mental condition Physical Exam Vital Signs: Vital Signs: Last Vital Signs Temp 98.5 F 02/25/25 07:51 Pulse 108 H 02/25/25 07:51 Resp 18 02/25/25 07:51 BP 155/77 H 02/25/25 07:51 Pulse Ox 98 02/25/25 07:51 O2 Del Method Room Air 02/25/25 07:51 O2 Flow Rate 2 02/14/25 19:00 FiO2 21 02/14/25 17:00 BMI result Body Mass Index 23.0 Alert tracking, following commands of blinking and closing eyes. dense right hemiplegia, weakness on left, not vocalizing Const: General: alert, awake, ill appearing and other ( encephalopathic) Nutritional Appearance: average body habitus Eyes: Sclerae: sclerae normal EOM: EOMs intact bilaterally Neck: Neck: Yes normal visual inspection, Yes full ROM, Yes no lymphadenopathy, Yes trachea midline and Yes supple Lymphatic: no lymphadenopathy noted Chest: Chest palpation & inspection: normal inspection of the chest Resp: Effort & Inspection: normal respiratory effort, no audible wheezes, no cough, no respiratory distress and no use of accessory muscles Auscultation: clear to auscultation bilaterally, crackles (Mild bilateral) and diminished lung sounds Cardio: Palpation: normal PMI and no palpable S3 Rate: tachycardic Rhythm: regular rhythm and abnormal rhythm irregularly irregular Heart sounds: S1 normal heart sound present, S2 normal heart sound present, no gallops, no murmurs and no rubs GI: Inspection: Yes normal to inspection, No Abdominal wall edema and No distended Palpation (GI): Soft to palpation, not firm, nontender, no guarding, not rigid and Other GI palpation findings present ( Nontender) Auscultation: normal bowel sounds Skin: General skin exam: other ( warm) Extrem: General: No clubbing, No cyanosis and Yes edema (Trace bilateral) Objective Data Active Medications Amlodipine Besylate (Amlodipine Besylate 10 Mg Tablet) 10 mg G-TUBE DAILY [facility]; Protocol Last Admin: 02/24/25 12:26 Dose: Not Given Documented By: MATT Non-Admin Reason: Patient Refused Atorvastatin Calcium (Atorvastatin Calcium 80 Mg Tablet) 80 mg G-TUBE BEDTIME [facility] Last Admin: 02/24/25 19:35 Dose: 80 mg Documented By: MARIETTA Chlorhexidine Gluconate (Chlorhexidine Gluc Oral Rinse 15 Ml Mouthwash) 15 ml BUCCAL TID [facility] Last Admin: 02/24/25 19:34 Dose: Not Given Documented By: MARIETTA Non-Admin Reason: pt unable to follow commands Clonidine HCl (Clonidine Hcl 0.1 Mg Tablet) 0.1 mg G-TUBE BID [facility]; Protocol Last Admin: 02/24/25 19:35 Dose: 0.1 mg Documented By: MARIETTA Dextrose (Dextrose 50 % 25 Gm/50 Ml Syringe) 25 gm IVPUSH Q15M PRN; Protocol PRN Reason: per Hypoglycemia Standing Ord. Glucose (Glucose Gel 15 Gm Gel..Gram.) 15 gm PO Q15M PRN; Protocol PRN Reason: per Hypoglycemia Standing Ord. Hydralazine HCl (Hydralazine Hcl 20 Mg/Ml Vial) 10 mg IVPUSH Q4H PRN; Protocol PRN Reason: Hypertension Last Admin: 02/23/25 04:32 Dose: 10 mg Documented By: VALERIA Hydralazine HCl (Hydralazine Hcl 50 Mg Tablet) 50 mg G-TUBE QID [facility]; Protocol Last Admin: 02/24/25 19:35 Dose: 50 mg Documented By: MARIETTA Insulin Human Lispro (Insulin Lispro 100 Unit/Ml 3 Ml Vial) 0 unit SUBCUT Q6H [facility]; Protocol Last Admin: 02/25/25 06:42 Dose: 2 unit Documented By: MARIETTA Isosorbide Dinitrate (Isosorbide Dinitrate 20 Mg Tablet) 20 mg G-TUBE 0800,1300,1800 [facility]; Protocol Last Admin: 02/24/25 18:23 Dose: Not Given Documented By: MATT Non-Admin Reason: Patient Refused Labetalol HCl (Labetalol Hcl 100 Mg Tablet) 100 mg G-TUBE DAILY [facility]; Protocol Last Admin: 02/24/25 12:28 Dose: Not Given Documented By: MATT Non-Admin Reason: Patient Refused Levothyroxine Sodium (Levothyroxine Sodium 125 Mcg Tablet) 125 mcg G-TUBE DAILY@0600 [facility] Last Admin: 02/25/25 06:42 Dose: 125 mcg Documented By: MARIETTA Omeprazole (Omeprazole/Na Bicarb Oral Susp 20 Mg/10 Ml Ud Cup) 40 mg PO BID@0630,1630 [facility] Last Admin: 02/21/25 06:08 Dose: 40 mg Documented By: JOSE Pantoprazole Sodium (Pantoprazole Sodium 40 Mg/10 Ml Vial) 40 mg IVPUSH BID@0630,1630 [facility] Last Admin: 02/25/25 06:43 Dose: 40 mg Documented By: MARIETTA Sodium Chloride (0.9 % Sodium Chloride Flush 3 Ml Syringe) 3 ml IVFLUSH QSHIFT [facility] Last Admin: 02/24/25 19:36 Dose: 3 ml Documented By: MARIETTA Labs 02/25/25 07:05 02/25/25 07:05 Labs: Laboratory Results - last 24 hr 02/24/25 02/24/25 02/25/25 11:23 18:24 00:09 MCV MCH MCHC RDW Plt Count MPV Absolute Nucleated RBC Nucleated RBC % (auto) Anion Gap Estim Creat Clear Calc Estimated GFR POC Glucose 160 H 151 H 153 H Random Glucose Calcium 02/25/25 07:05 MCV 90.7 MCH 28.9 MCHC 31.8 RDW 14.3 Plt Count 352 MPV 9.8 Absolute Nucleated RBC 0.000 Nucleated RBC % (auto) 0.0 Anion Gap 22 H Estim Creat Clear Calc 11.3 Estimated GFR 11 POC Glucose Random Glucose 167 H Calcium 9.5 Assessment and Plan (1) Pulmonary aspiration: Status: Acute (2) ESRD on hemodialysis: Status: Acute (3) Renal failure: Status: Acute (4) Duodenal ulcer: Status: Acute (5) Acute on chronic anemia: Status: Acute Plan 79F PMH HTN, HLD, DM, CAD, CVA with right hemiparesis, CKD IV, hypothyroid, LUANA presented on 01/19/25 with AMS, hypoxia, chf. was intubated and admitted to ICU likely secondary to acute on chronic combined systolic and diastolic congestive heart failure, improved with diuresis, extubated on 01/22/2025, reintubated 01/29/25, extubated 02/14/25, further complicated by acute CVA with significant encephalopathy, dysphagia, right hemiplegia found on 04/08/25. course also complicated by GI bleed due to duodenal ulcer s'p embolization 01/30/25, also complicated by KAI/ATN started on HD 01/27/25. acute Toxic metabolic encephalopathy with new left-sided CVA on the background of prior CVA complicated by significant dysphagia altered, frail, not moving extremities, make eye contact and mumble yes\no on Statin continue Tube feeding not on ASA\Eliquis given GI bleed LAWYERS appreciated - now on pureed with nectar thick liquids neuro appreciated - eeg negative for seizure Upper GI bleed with acute blood loss anemia secondary to duodenal ulcer requiring embolization reported Lisa colored stool 02/20, monitor hgb - stable continue PPI Acute on chronic combined systolic and diastolic congestive heart failure. improved Cardiology following continue antihypertensive regimen Acute hypoxic respiratory failure secondary to aspiration pneumonia requiring ventilatory support Resolved, extubated on 02/14/2025. Healthcare proxy/family chose DNI\DNR completed antibiotics Monitor KAI due to ATN in CKD IV hemodialysis. Nephrology following (sees Dr. Colvin outpatient, RTane to take over inpatient), on dialysis s/p permacath diabetes mellitus insulin. Prophylaxis: Compression therapy due to gi bleed DNR/DNI reason for continued hospitalization:placement Quality Stroke Does the patient have a stroke diagnosis?: Yes Reason for No Anti-thrombotic by Day Two: N/A - Med Ordered VTE Prior VTE?: No VTE Risk Level:: Medical - moderate - high VTE Device Contraindication: N/A - Device Ordered VTE Drug Contraindication: Treatment Not Tolerated
[2025-02-25] MEDS: hydrALAZINE HCl 50 MG TABLET G-TUBE ×4 (09:26→20:25)
[2025-02-25] MEDS: cloNIDine HCL 0.1 MG TABLET G-TUBE ×2 (09:26→20:25)
[2025-02-25] MEDS: 0.9 % Sodium Chloride Flush 3 ML SYRINGE IVFLUSH ×3 (09:27→20:27)
[2025-02-25] MEDS: Labetalol HCL 100 MG TABLET G-TUBE (09:27)
[2025-02-25] MEDS: amLODIPine Besylate 10 MG TABLET G-TUBE (09:27)
[2025-02-25] MEDS: Chlorhexidine Gluc Oral Rinse 15 ML MOUTHWASH BUCCAL (09:31)
[2025-02-25 12:00] VITALS: BP 125/84; PULSE 92; RESP 18; TEMP 36.2; O2SAT 96
[2025-02-25 12:59] LABS: Glucose, Whole Blood 204 mg/dL (60-115)
[2025-02-25] MEDS: 0.9 % Sodium Chloride 500 ML IV (13:23)
[2025-02-25] MEDS: Isosorbide Dinitrate 20 MG TABLET G-TUBE ×2 (13:28→16:32)
[2025-02-25 16:00] VITALS: BP 130/60; PULSE 84; RESP 18; TEMP 36.4; O2SAT 99
[2025-02-25 19:35] VITALS: BP 162/74; PULSE 92; RESP 18; TEMP 37; O2SAT 98
[2025-02-25] MEDS: Atorvastatin Calcium 80 MG TABLET G-TUBE (20:26)
[2025-02-25 21:05] LABS: Glucose, Whole Blood 143 mg/dL (60-115)
[2025-02-26] VITALS (7 sets, daily range): BP systolic 90–163; BP diastolic 50–98; PULSE 79–97; RESP 14–19; TEMP 36–36.9; O2SAT 95–99
[2025-02-26 01:01] LABS: Glucose, Whole Blood 144 mg/dL (60-115)
[2025-02-26] MEDS: Insulin Lispro 100 UNIT/ML 3 ML VIAL SUBCUT (06:29)
[2025-02-26] MEDS: Levothyroxine Sodium 125 MCG TABLET G-TUBE (06:29)
[2025-02-26] MEDS: Pantoprazole Sodium 40 MG/10 ML VIAL IVPUSH ×2 (06:29→14:59)
[2025-02-26 08:12] LABS: Glucose, Whole Blood 165 mg/dL (60-115)
[2025-02-26] MEDS: Chlorhexidine Gluc Oral Rinse 15 ML MOUTHWASH BUCCAL ×2 (08:32→14:58)
[2025-02-26] MEDS: Labetalol HCL 100 MG TABLET G-TUBE (08:32)
[2025-02-26] MEDS: cloNIDine HCL 0.1 MG TABLET G-TUBE (08:32)
[2025-02-26] MEDS: Isosorbide Dinitrate 20 MG TABLET G-TUBE ×3 (08:33→16:53)
[2025-02-26] MEDS: amLODIPine Besylate 10 MG TABLET G-TUBE (08:33)
[2025-02-26] MEDS: 0.9 % Sodium Chloride Flush 3 ML SYRINGE IVFLUSH ×3 (08:33→20:30)
[2025-02-26] MEDS: hydrALAZINE HCl 50 MG TABLET G-TUBE ×2 (08:33→14:59)
--- NOTE | 2025-02-26 11:25 | MHC.CLN ---
F/U NOTED NO TF SINCE NGT PULLED OUT 02/22/25 DIRECTOR OF PROMOTIONS RECOMMENDING PUREED WITH NT LIQ DIET PO INTAKE POOR RANGING FROM 0-25% RECOMMEND ADDING GELATEIN TID TO INCREASE KCALS SUPP PROVIDES 480KCALS, 60G PROTEIN MONITOR PO INTAKE AND ENCOURAGE SUPPLEMENT
--- NOTE | 2025-02-26 11:53 | HO.PM.IMPN ---
Subjective Subjective Date of Service: 02/26/25 Review of Systems Review of Systems: Yes Unobtainable due to mental condition Physical Exam Vital Signs: Vital Signs: Last Vital Signs Temp 98.3 F 02/26/25 07:08 Pulse 96 02/26/25 07:08 Resp 18 02/26/25 07:08 BP 154/76 H 02/26/25 07:08 Pulse Ox 97 02/26/25 07:08 O2 Del Method Room Air 02/26/25 07:08 O2 Flow Rate 2 02/14/25 19:00 FiO2 21 02/14/25 17:00 BMI result Body Mass Index 23.0 More lethargic today, ill-appearing, not moving extremities. Objective Data Active Medications Amlodipine Besylate (Amlodipine Besylate 10 Mg Tablet) 10 mg G-TUBE DAILY [facility]; Protocol Last Admin: 02/26/25 08:33 Dose: 10 mg Documented By: INES Atorvastatin Calcium (Atorvastatin Calcium 80 Mg Tablet) 80 mg G-TUBE BEDTIME K[facility] Last Admin: 02/25/25 20:26 Dose: 80 mg Documented By: CHARLEEN Chlorhexidine Gluconate (Chlorhexidine Gluc Oral Rinse 15 Ml Mouthwash) 15 ml BUCCAL TID [facility] Last Admin: 02/26/25 08:32 Dose: 15 ml Documented By: INES Clonidine HCl (Clonidine Hcl 0.1 Mg Tablet) 0.1 mg G-TUBE BID [facility]; Protocol Last Admin: 02/26/25 08:32 Dose: 0.1 mg Documented By: INES Dextrose (Dextrose 50 % 25 Gm/50 Ml Syringe) 25 gm IVPUSH Q15M PRN; Protocol PRN Reason: per Hypoglycemia Standing Ord. Glucose (Glucose Gel 15 Gm Gel..Gram.) 15 gm PO Q15M PRN; Protocol PRN Reason: per Hypoglycemia Standing Ord. Hydralazine HCl (Hydralazine Hcl 20 Mg/Ml Vial) 10 mg IVPUSH Q4H PRN; Protocol PRN Reason: Hypertension Last Admin: 02/23/25 04:32 Dose: 10 mg Documented By: VALERIA Hydralazine HCl (Hydralazine Hcl 50 Mg Tablet) 50 mg G-TUBE QID [facility]; Protocol Last Admin: 02/26/25 08:33 Dose: 50 mg Documented By: INES Dextrose/Sodium Chloride (D51/2ns) 1,000 mls @ 50 mls/hr IVCONT .Q20H [facility] Insulin Human Lispro (Insulin Lispro 100 Unit/Ml 3 Ml Vial) 0 unit SUBCUT Q6H [facility]; Protocol Last Admin: 02/26/25 06:29 Dose: 2 unit Documented By: CHARLEEN Isosorbide Dinitrate (Isosorbide Dinitrate 20 Mg Tablet) 20 mg G-TUBE 0800,1300,1800 [facility]; Protocol Last Admin: 02/26/25 08:33 Dose: 20 mg Documented By: INES Labetalol HCl (Labetalol Hcl 100 Mg Tablet) 100 mg G-TUBE DAILY [facility]; Protocol Last Admin: 02/26/25 08:32 Dose: 100 mg Documented By: INES Levothyroxine Sodium (Levothyroxine Sodium 125 Mcg Tablet) 125 mcg G-TUBE DAILY@0600 [facility] Last Admin: 02/26/25 06:29 Dose: 125 mcg Documented By: CHARLEEN Omeprazole (Omeprazole/Na Bicarb Oral Susp 20 Mg/10 Ml Ud Cup) 40 mg PO BID@0630,1630 [facility] Last Admin: 02/21/25 06:08 Dose: 40 mg Documented By: JOSE Omeprazole (Omeprazole 40 Mg Capsule.) 40 mg PO BID@0630,1630 [facility] Pantoprazole Sodium (Pantoprazole Sodium 40 Mg/10 Ml Vial) 40 mg IVPUSH BID@0630,1630 [facility] Last Admin: 02/26/25 06:29 Dose: 40 mg Documented By: CHARLEEN Sodium Chloride (0.9 % Sodium Chloride Flush 3 Ml Syringe) 3 ml IVFLUSH QSHIFT [facility] Last Admin: 02/26/25 08:33 Dose: 3 ml Documented By: INES Labs 02/25/25 07:05 02/25/25 07:05 Labs: Laboratory Results - last 24 hr 02/25/25 02/25/25 02/26/25 11:40 18:05 00:23 POC Glucose 204 H 143 H 144 H 02/26/25 06:05 POC Glucose 165 H Assessment and Plan (1) Pulmonary aspiration: Status: Acute (2) ESRD on hemodialysis: Status: Acute (3) Renal failure: Status: Acute (4) Duodenal ulcer: Status: Acute (5) Acute on chronic anemia: Status: Acute Plan 79F PMH HTN, HLD, DM, CAD, CVA with right hemiparesis, CKD IV, hypothyroid, LUANA presented on 01/19/25 with AMS, hypoxia, chf. was intubated and admitted to ICU likely secondary to acute on chronic combined systolic and diastolic congestive heart failure, improved with diuresis, extubated on 01/22/2025, reintubated 01/29/25, extubated 02/14/25, further complicated by acute CVA with significant encephalopathy, dysphagia, right hemiplegia found on 04/08/25. course also complicated by GI bleed due to duodenal ulcer s'p embolization 01/30/25, also complicated by KAI/ATN started on HD 01/27/25. acute Toxic metabolic encephalopathy with new left-sided CVA on the background of prior CVA complicated by significant dysphagia altered, frail, not moving extremities, make eye contact and mumble yes\no though more lethargic today on Statin continue Tube feeding not on ASA\Eliquis given GI bleed MARKETING TECHNOLOGY SPECIALIST appreciated - now on pureed with nectar thick liquids - but poor intake, will start maintence fluids and montior neuro appreciated - eeg negative for seizure Upper GI bleed with acute blood loss anemia secondary to duodenal ulcer requiring embolization monitor hgb - stable continue PPI changed to po Acute on chronic combined systolic and diastolic congestive heart failure. improved Cardiology following continue antihypertensive regimen Acute hypoxic respiratory failure secondary to aspiration pneumonia requiring ventilatory support Resolved, extubated on 02/14/2025. Healthcare proxy/family chose DNI\DNR completed antibiotics Monitor KAI due to ATN in CKD IV hemodialysis. Nephrology following (sees Dr. Colvin outpatient, RTane has taken over inpatient), on dialysis s/p permacath diabetes mellitus insulin. Prophylaxis: Compression therapy due to gi bleed DNR/DNI reason for continued hospitalization:ams Quality Stroke Does the patient have a stroke diagnosis?: Yes Reason for No Anti-thrombotic by Day Two: N/A - Med Ordered VTE Prior VTE?: No VTE Risk Level:: Medical - moderate - high VTE Device Contraindication: N/A - Device Ordered VTE Drug Contraindication: Treatment Not Tolerated
[2025-02-26 13:08] LABS: Glucose, Whole Blood 148 mg/dL (60-115)
[2025-02-26] MEDS: Dextrose 5 % and 0.45 % NaCl 1,000 ML 50 ML IVCONT (13:08)
[2025-02-26 13:48] LABS: Venous Blood Gas Refer to POC result
[2025-02-26 13:48] LABS: VBG HCO3 34 mmol/L (22-26); VBG pCO2 38 mmHg; VBG pH 7.55 (7.32-7.43); VBG pO2 53 mmHg
--- NOTE | 2025-02-26 13:48 | MHC.CM.PN ---
PT REMAINS INPT FOR TREATMENT OF AMS DCS STR. PT WILL NEED A SNF THAT CAN ACCOMMODATE HD, [facility]WAM FOLLOWING
[2025-02-26] MEDS: Omeprazole 40 MG CAPSULE.DR PO (14:59)
--- NOTE | 2025-02-26 15:31 | MHC.SLORD ---
Speech Language Pathology Order Status: No DRUM BARKER OPERATOR tx today 02/26. DRUM BARKER OPERATOR to followup as indicated.
--- NOTE | 2025-02-26 16:10 | P.PNNP_ITS ---
Subjective Subjective Date of Service: 02/26/25 Interval history: Seen and examiend, events noted HD today Physical Exam 2 Vital Signs: Vital Signs: Last Vital Signs Temp 96.8 F 02/26/25 12:46 Pulse 84 02/26/25 12:46 Resp 16 02/26/25 12:46 BP 114/53 L 02/26/25 12:46 Pulse Ox 96 02/26/25 12:46 O2 Del Method Room Air 02/26/25 12:46 O2 Flow Rate 2 02/14/25 19:00 FiO2 21 02/14/25 17:00 BMI result Body Mass Index 23.0 Const: General: cooperative, healthy appearing, comfortable, no acute distress, well developed, alert, awake, ill appearing, lethargic and other ( encephalopathic) Nutritional Appearance: average body habitus O rientation/consciousness: patient oriented x3, lethargic and Other orientation findings ( oriented) HEENT: Head: Yes normal to inspection, Yes normocephalic and Yes atraumatic Eyes: General: appearance normal, both eyes and all related structures S clerae: sclerae normal EOM: EOMs intact bilaterally Neck: Neck: Yes normal visual inspection, Yes full ROM, Yes no lymphadenopathy, Yes no meningeal signs, Yes trachea midline and Yes supple L ymphatic: no lymphadenopathy noted Chest: Chest palpation & inspection: normal inspection of the chest Resp: Effort & Inspection: normal respiratory effort, no audible wheezes, no cough, no respiratory distress and no use of accessory muscles Auscultation: clear to auscultation bilaterally, crackles (Mild bilateral) and diminished lung sounds Cardio: Palpation: normal PMI and no palpable S3 Rate: regular rate and tachycardic Rhythm: regular rhythm and abnormal rhythm irregularly irregular Heart sounds: S1 normal heart sound present, S2 normal heart sound present, no gallops, no murmurs and no rubs GI: Inspection: Yes normal to inspection, No Abdominal wall edema and No distended Palpation (GI): Soft to palpation, not firm, nontender, no guarding, not rigid and Other GI palpation findings present ( Nontender) A uscultation: normal bowel sounds Skin: General skin exam: no rashes or lesions noted and other ( warm) Neuro: General: patient oriented x3, tone normal, moves all extremities and no meningeal signs Motor exam (neuro): no asterixis Extrem: General: Yes normal to inspection, Yes full ROM, Yes capillary refill normal, Yes no clubbing, cyanosis or edema, Yes no pedal edema, No clubbing, No cyanosis and Yes edema (Trace bilateral) Psych: Appearance: grossly normal Objective Data Labs 02/25/25 07:05 02/25/25 07:05 Labs: Laboratory Results - last 24 hr 02/25/25 02/26/25 02/26/25 18:05 00:23 06:05 VBG pH VBG pCO2 VBG pO2 VBG HCO3 VBG O2 Saturation VBG Base Excess POC Glucose 143 H 144 H 165 H 02/26/25 02/26/25 12:44 13:44 VBG pH 7.55 H VBG pCO2 38 VBG pO2 53 VBG HCO3 34 H VBG O2 Saturation 83.0 VBG Base Excess 11.0 POC Glucose 148 H Microbiology Microbiology Results: Microbiology 01/19/25 07:38 Blood - Venous Blood Culture - Final No growth after 5 days. 01/19/25 07:14 Blood - Venous Blood Culture - Final No growth after 5 days. Procedures Date of Service Date of Service: 02/26/25 Assessment & Plan Assessment and plan (1) Acute kidney injury superimposed on CKD: Status: Acute Plan 1. KAI on adv CKD and now ESRD and Dialysis dependent 2. Anemia: epo and ques Fe def 3. MBD of CKD: need to check PTH/vit D and Tx accordingly 4. Hemoaccess: s/p PERMCATH placement 5. Deconditioned: D/C disposition: will need to go Rehab and [facility] good [facility] as we have HD on site; transition to PD will need to be put on hold and only once she gets stronger can we look at transition to PD REC: cont HD 3x/wk; epo as ordered Will follow with team Time Spent With Patient Time: Total time managing care of this patient today ____ minutes. Progress Note: Quality Stroke Does the patient have a stroke diagnosis?: Yes Reason for No Anti-thrombotic by Day Two: N/A - Med Ordered
[2025-02-26 18:16] LABS: Glucose, Whole Blood 153 mg/dL (60-115)
[2025-02-26] MEDS: Atorvastatin Calcium 80 MG TABLET G-TUBE (20:30)
[2025-02-27] VITALS (12 sets, daily range): BP systolic 96–150; BP diastolic 49–67; PULSE 62–80; RESP 16–19; TEMP 36.3–37; O2SAT 98–100
[2025-02-27 01:18] LABS: Glucose, Whole Blood 114 mg/dL (60-115)
[2025-02-27] MEDS: Levothyroxine Sodium 125 MCG TABLET G-TUBE (06:00)
[2025-02-27] MEDS: Omeprazole 40 MG CAPSULE.DR PO ×2 (06:00→16:24)
[2025-02-27 06:12] LABS: Mean Corpuscular HGB Conc 32.2 g/dl (31.0-35.0); Mean Corpuscular Hemoglobin 29.3 pg (27.0-33.0); Mean Corpuscular Volume 91.1 fL (80.0-98.0); Mean Platelet Volume 9.6 fL (9.4-12.3); Platelet Count 305 X10*3/uL (160-400); Red Blood Count 2.25 X10*6/uL (4.20-5.50); Red Cell Distribution Width 14.6 % (11.0-16.0); White Blood Count 12.2 X10*3/uL (4.8-10.8)
[2025-02-27 06:21] LABS: Hemoglobin 6.6 g/dl (12.0-16.0)
[2025-02-27 06:22] LABS: Hematocrit 20.5 % (37.0-47.0)
[2025-02-27 06:31] LABS: Anion Gap 18 (12-20); Blood Urea Nitrogen 41 mg/dL (9-16); Calcium 8.5 mg/dL (8.4-10.2); Carbon Dioxide 25 mmol/L (22-29); Chloride 99 mmol/L (96-108); Estimated Glomerular Filt Rate 14; Glucose Random 160 mg/dL (60-115); Sodium 138 mmol/L (135-145)
[2025-02-27] MEDS: Insulin Lispro 100 UNIT/ML 3 ML VIAL SUBCUT ×2 (06:46→12:23)
[2025-02-27 07:57] LABS: Glucose, Whole Blood 159 mg/dL (60-115)
[2025-02-27] MEDS: Isosorbide Dinitrate 20 MG TABLET G-TUBE ×3 (08:07→18:02)
[2025-02-27] MEDS: hydrALAZINE HCl 50 MG TABLET G-TUBE ×3 (08:07→22:21)
[2025-02-27] MEDS: Chlorhexidine Gluc Oral Rinse 15 ML MOUTHWASH BUCCAL ×3 (08:07→22:18)
[2025-02-27] MEDS: Labetalol HCL 100 MG TABLET G-TUBE (08:07)
[2025-02-27] MEDS: amLODIPine Besylate 10 MG TABLET G-TUBE (08:07)
[2025-02-27] MEDS: 0.9 % Sodium Chloride Flush 3 ML SYRINGE IVFLUSH ×2 (08:08→16:24)
[2025-02-27] MEDS: cloNIDine HCL 0.1 MG TABLET G-TUBE ×2 (08:08→22:21)
[2025-02-27] MEDS: Dextrose 5 % and 0.45 % NaCl 1,000 ML 50 ML IVCONT (08:08)
[2025-02-27 11:08] LABS: Glucose, Whole Blood 167 mg/dL (60-115)
--- NOTE | 2025-02-27 11:26 | MHC.SLORD ---
Speech Language Pathology Order Status: Pt evaluated by CUSTOMER SERVICE TELLER for swallow on 02/22; recommended puree solids (NDD1), nectar thick liquids, and meds in puree. Per RN, pt is tolerating this diet recommendation. CUSTOMER SERVICE TELLER attempted to see pt this morning for re-evaluation. Pt too lethargic. RN to [place] CUSTOMER SERVICE TELLER when appropriate to participate.
--- NOTE | 2025-02-27 11:47 | HO.PM.IMPN ---
Subjective Subjective Date of Service: 02/27/25 Review of Systems Review of Systems: Yes Unobtainable due to mental condition Physical Exam Vital Signs: Vital Signs: Last Vital Signs Temp 98.1 F 02/27/25 11:05 Pulse 62 02/27/25 11:05 Resp 16 02/27/25 11:05 BP 98/49 L 02/27/25 11:05 Pulse Ox 100 02/27/25 11:05 O2 Del Method Room Air 02/27/25 11:05 O2 Flow Rate 2 02/14/25 19:00 FiO2 21 02/14/25 17:00 BMI result Body Mass Index 23.0 More alert today, following directions, answering one-word answers weekly, has some movement on the left side, no movement on right Objective Data Active Medications Amlodipine Besylate (Amlodipine Besylate 10 Mg Tablet) 10 mg G-TUBE DAILY [facility]; Protocol Last Admin: 02/27/25 08:07 Dose: 10 mg Documented By: CLAUDIA Atorvastatin Calcium (Atorvastatin Calcium 80 Mg Tablet) 80 mg G-TUBE BEDTIME [facility] Last Admin: 02/26/25 20:30 Dose: 80 mg Documented By: JOSE Chlorhexidine Gluconate (Chlorhexidine Gluc Oral Rinse 15 Ml Mouthwash) 15 ml BUCCAL TID KENYA Last Admin: 02/27/25 08:07 Dose: 15 ml Documented By: CLAUDIA Clonidine HCl (Clonidine Hcl 0.1 Mg Tablet) 0.1 mg G-TUBE BID [facility]; Protocol Last Admin: 02/27/25 08:08 Dose: 0.1 mg Documented By: CLAUDIA Dextrose (Dextrose 50 % 25 Gm/50 Ml Syringe) 25 gm IVPUSH Q15M PRN; Protocol PRN Reason: per Hypoglycemia Standing Ord. Glucose (Glucose Gel 15 Gm Gel..Gram.) 15 gm PO Q15M PRN; Protocol PRN Reason: per Hypoglycemia Standing Ord. Hydralazine HCl (Hydralazine Hcl 20 Mg/Ml Vial) 10 mg IVPUSH Q4H PRN; Protocol PRN Reason: Hypertension Last Admin: 02/23/25 04:32 Dose: 10 mg Documented By: VALERIA Hydralazine HCl (Hydralazine Hcl 50 Mg Tablet) 50 mg G-TUBE QID [facility]; Protocol Last Admin: 02/27/25 08:07 Dose: 50 mg Documented By: CLAUDIA Dextrose/Sodium Chloride (D51/2ns) 1,000 mls @ 50 mls/hr IVCONT .Q20H [facility] Last Admin: 02/27/25 08:08 Dose: 50 mls/hr Documented By: CLAUDIA Insulin Human Lispro (Insulin Lispro 100 Unit/Ml 3 Ml Vial) 0 unit SUBCUT Q6H [facility]; Protocol Last Admin: 02/27/25 06:46 Dose: 2 unit Documented By: JOSE Isosorbide Dinitrate (Isosorbide Dinitrate 20 Mg Tablet) 20 mg G-TUBE 0800,1300,1800 [facility]; Protocol Last Admin: 02/27/25 08:07 Dose: 20 mg Documented By: CLAUDIA Labetalol HCl (Labetalol Hcl 100 Mg Tablet) 100 mg G-TUBE DAILY [facility]; Protocol Last Admin: 02/27/25 08:07 Dose: 100 mg Documented By: CLAUDIA Levothyroxine Sodium (Levothyroxine Sodium 125 Mcg Tablet) 125 mcg G-TUBE DAILY@0600 [facility] Last Admin: 02/27/25 06:00 Dose: 125 mcg Documented By: JOSE Omeprazole (Omeprazole/Na Bicarb Oral Susp 20 Mg/10 Ml Ud Cup) 40 mg PO BID@0630,1630 [facility] Last Admin: 02/21/25 06:08 Dose: 40 mg Documented By: JOSE Omeprazole (Omeprazole 40 Mg Capsule.Dr) 40 mg PO BID@0630,1630 [facility] Last Admin: 02/27/25 06:00 Dose: 40 mg Documented By: JOSE Sodium Chloride (0.9 % Sodium Chloride Flush 3 Ml Syringe) 3 ml IVFLUSH QSHIFT [facility] Last Admin: 02/27/25 08:08 Dose: 3 ml Documented By: CLAUDIA Labs 02/27/25 05:18 02/27/25 05:18 Labs: Laboratory Results - last 24 hr 02/25/25 02/26/25 02/26/25 06:30 12:44 13:44 MCV MCH MCHC RDW Plt Count MPV Absolute Nucleated RBC Nucleated RBC % (auto) VBG pH 7.55 H VBG pCO2 38 VBG pO2 53 VBG HCO3 34 H VBG O2 Saturation 83.0 VBG Base Excess 11.0 Anion Gap Estim Creat Clear Calc Estimated GFR POC Glucose 167 H 148 H Random Glucose Calcium Blood Type Antibody Screen Crossmatch 02/26/25 02/26/25 02/27/25 17:59 23:25 05:18 MCV 91.1 MCH 29.3 MCHC 32.2 RDW 14.6 Plt Count 305 MPV 9.6 Absolute Nucleated RBC 0.000 Nucleated RBC % (auto) 0.0 VBG pH VBG pCO2 VBG pO2 VBG HCO3 VBG O2 Saturation VBG Base Excess Anion Gap 18 Estim Creat Clear Calc 14.0 Estimated GFR 14 POC Glucose 153 H 114 Random Glucose 160 H Calcium 8.5 D Blood Type Antibody Screen Crossmatch 02/27/25 02/27/25 06:00 07:47 MCV MCH MCHC RDW Plt Count MPV Absolute Nucleated RBC Nucleated RBC % (auto) VBG pH VBG pCO2 VBG pO2 VBG HCO3 VBG O2 Saturation VBG Base Excess Anion Gap Estim Creat Clear Calc Estimated GFR POC Glucose 159 H Random Glucose Calcium Blood Type A Positive Antibody Screen NEGATIVE Crossmatch See Detail Assessment and Plan (1) Pulmonary aspiration: Status: Acute (2) ESRD on hemodialysis: Status: Acute (3) Renal failure: Status: Acute (4) Duodenal ulcer: Status: Acute (5) Acute on chronic anemia: Status: Acute Plan 79F PMH HTN, HLD, DM, CAD, CVA with right hemiparesis, CKD IV, hypothyroid, LUANA presented on 01/19/25 with AMS, hypoxia, chf. was intubated and admitted to ICU likely secondary to acute on chronic combined systolic and diastolic congestive heart failure, improved with diuresis, extubated on 01/22/2025, reintubated 01/29/25, extubated 02/14/25, further complicated by acute CVA with significant encephalopathy, dysphagia, right hemiplegia found on 04/08/25. course also complicated by GI bleed due to duodenal ulcer s'p embolization 01/30/25, also complicated by KAI/ATN started on HD 01/27/25. acute Toxic metabolic encephalopathy with new left-sided CVA on the background of prior CVA complicated by significant dysphagia altered, frail, not moving extremities, make eye contact and mumble yes\no though generally appears more lethargic on dialysis dasy, today more alert on Statin continue Tube feeding not on ASA\Eliquis given GI bleed SIZE TESTER appreciated - now on pureed with nectar thick liquids - but poor intake, started maintence fluids and montior neuro appreciated - eeg negative for seizure Upper GI bleed with acute blood loss anemia secondary to duodenal ulcer requiring embolization monitor hgb - stable continue PPI changed to po Acute on chronic combined systolic and diastolic congestive heart failure. improved Cardiology following continue antihypertensive regimen Acute hypoxic respiratory failure secondary to aspiration pneumonia requiring ventilatory support Resolved, extubated on 02/14/2025. Healthcare proxy/family chose DNI\DNR completed antibiotics Monitor KAI due to ATN in CKD IV hemodialysis. Nephrology following (sees Dr. Colvin outpatient, RTane has taken over inpatient), on dialysis s/p permacath diabetes mellitus insulin. Prophylaxis: Compression therapy due to gi bleed DNR/DNI reason for continued hospitalization: not reliably eating Quality Stroke Does the patient have a stroke diagnosis?: Yes Reason for No Anti-thrombotic by Day Two: N/A - Med Ordered VTE Prior VTE?: No VTE Risk Level:: Medical - moderate - high VTE Device Contraindication: N/A - Device Ordered VTE Drug Contraindication: Treatment Not Tolerated
--- NOTE | 2025-02-27 11:48 | PM.EVENT ---
Event Note Date of Service: 02/27/25 Event Note: acute drop in hgb likely due to inflammation, no further bleed will transfuse 1 unit monitor Time Spent With Patient Time: Total time managing care of this patient today ____ minutes.
[2025-02-27 11:50] LABS: Glucose, Whole Blood 221 mg/dL (60-115)
[2025-02-27 17:58] LABS: Glucose, Whole Blood 117 mg/dL (60-115)
--- NOTE | 2025-02-27 21:58 | P.PNNP_ITS ---
Subjective Subjective Date of Service: 02/27/25 Interval history: Seen and examiend, events noted Physical Exam 2 Vital Signs: Vital Signs: Last Vital Signs Temp 98.3 F 02/27/25 19:41 Pulse 68 02/27/25 19:41 Resp 16 02/27/25 19:41 BP 134/61 02/27/25 19:41 Pulse Ox 100 02/27/25 19:41 O2 Del Method Nasal Cannula 02/27/25 19:41 O2 Flow Rate 2 02/27/25 19:41 FiO2 21 02/14/25 17:00 BMI result Body Mass Index 23.0 Const: General: cooperative, healthy appearing, comfortable, no acute distress, well developed, alert, awake, ill appearing, lethargic and other ( encephalopathic) Nutritional Appearance: average body habitus O rientation/consciousness: patient oriented x3, lethargic and Other orientation findings ( oriented) HEENT: Head: Yes normal to inspection, Yes normocephalic and Yes atraumatic Eyes: General: appearance normal, both eyes and all related structures S clerae: sclerae normal EOM: EOMs intact bilaterally Neck: Neck: Yes normal visual inspection, Yes full ROM, Yes no lymphadenopathy, Yes no meningeal signs, Yes trachea midline and Yes supple L ymphatic: no lymphadenopathy noted Chest: Chest palpation & inspection: normal inspection of the chest Resp: Effort & Inspection: normal respiratory effort, no audible wheezes, no cough, no respiratory distress and no use of accessory muscles Auscultation: clear to auscultation bilaterally, crackles (Mild bilateral) and diminished lung sounds Cardio: Palpation: normal PMI and no palpable S3 Rate: regular rate and tachycardic Rhythm: regular rhythm and abnormal rhythm irregularly irregular Heart sounds: S1 normal heart sound present, S2 normal heart sound present, no gallops, no murmurs and no rubs GI: Inspection: Yes normal to inspection, No Abdominal wall edema and No distended Palpation (GI): Soft to palpation, not firm, nontender, no guarding, not rigid and Other GI palpation findings present ( Nontender) A uscultation: normal bowel sounds Skin: General skin exam: no rashes or lesions noted and other ( warm) Neuro: General: patient oriented x3, tone normal, moves all extremities and no meningeal signs Motor exam (neuro): no asterixis Extrem: General: Yes normal to inspection, Yes full ROM, Yes capillary refill normal, Yes no clubbing, cyanosis or edema, Yes no pedal edema, No clubbing, No cyanosis and Yes edema (Trace bilateral) Psych: Appearance: grossly normal Objective Data Labs 02/27/25 05:18 02/27/25 05:18 Labs: Laboratory Results - last 24 hr 02/25/25 02/26/25 02/27/25 06:30 23:25 05:18 WBC 12.2 H RBC 2.25 L D Hgb 6.6 L* D Hct 20.5 L* D MCV 91.1 MCH 29.3 MCHC 32.2 RDW 14.6 Plt Count 305 MPV 9.6 Absolute Nucleated RBC 0.000 Nucleated RBC % (auto) 0.0 Sodium 138 Potassium 4.0 Chloride 99 Carbon Dioxide 25 Anion Gap 18 BUN 41 H Creatinine 3.27 H Estim Creat Clear Calc 14.0 Estimated GFR 14 POC Glucose 167 H 114 Random Glucose 160 H Calcium 8.5 D Blood Type Antibody Screen Crossmatch 02/27/25 02/27/25 02/27/25 06:00 07:47 11:24 WBC RBC Hgb Hct MCV MCH MCHC RDW Plt Count MPV Absolute Nucleated RBC Nucleated RBC % (auto) Sodium Potassium Chloride Carbon Dioxide Anion Gap BUN Creatinine Estim Creat Clear Calc Estimated GFR POC Glucose 159 H 221 H Random Glucose Calcium Blood Type A Positive Antibody Screen NEGATIVE Crossmatch See Detail 02/27/25 17:54 WBC RBC Hgb Hct MCV MCH MCHC RDW Plt Count MPV Absolute Nucleated RBC Nucleated RBC % (auto) Sodium Potassium Chloride Carbon Dioxide Anion Gap BUN Creatinine Estim Creat Clear Calc Estimated GFR POC Glucose 117 H Random Glucose Calcium Blood Type Antibody Screen Crossmatch Microbiology Microbiology Results: Microbiology 01/19/25 07:38 Blood - Venous Blood Culture - Final No growth after 5 days. 01/19/25 07:14 Blood - Venous Blood Culture - Final No growth after 5 days. Procedures Date of Service Date of Service: 02/27/25 Assessment & Plan Assessment and plan (1) Acute kidney injury superimposed on CKD: Status: Acute Plan 1. KAI on adv CKD and now ESRD and Dialysis dependent 2. Anemia: drop in Hb today, xfuse to keep Hb > 7.0; epo and ques Fe def 3. MBD of CKD: need to check PTH/vit D and Tx accordingly 4. Hemoaccess: s/p PERMCATH placement 5. Deconditioned: D/C disposition: will need to go Rehab and [facility] good [facility] as we have HD on site; transition to PD will need to be put on hold and only once she gets stronger can we look at transition to PD REC: cont HD 3x/wk; epo as ordered d/c planning Will follow with team Time Spent With Patient Time: Total time managing care of this patient today ____ minutes. Progress Note: Quality Stroke Does the patient have a stroke diagnosis?: Yes Reason for No Anti-thrombotic by Day Two: N/A - Med Ordered
[2025-02-27] MEDS: Atorvastatin Calcium 80 MG TABLET G-TUBE (22:16)
[2025-02-27 23:58] LABS: Glucose, Whole Blood 147 mg/dL (60-115)
[2025-02-28] VITALS (9 sets, daily range): BP systolic 120–157; BP diastolic 52–70; PULSE 64–83; RESP 16–18; TEMP 36.1–36.4; O2SAT 98–99
[2025-02-28 06:11] LABS: Glucose, Whole Blood 164 mg/dL (60-115)
[2025-02-28] MEDS: Insulin Lispro 100 UNIT/ML 3 ML VIAL SUBCUT (06:36)
[2025-02-28] MEDS: Levothyroxine Sodium 125 MCG TABLET G-TUBE (06:36)
[2025-02-28] MEDS: Omeprazole 40 MG CAPSULE.DR PO ×2 (06:36→16:34)
[2025-02-28 06:49] LABS: Hematocrit 28.1 % (37.0-47.0); Hemoglobin 9.6 g/dl (12.0-16.0); Mean Corpuscular HGB Conc 34.2 g/dl (31.0-35.0); Mean Corpuscular Hemoglobin 30.3 pg (27.0-33.0); Mean Corpuscular Volume 88.6 fL (80.0-98.0); Mean Platelet Volume 9.6 fL (9.4-12.3); Platelet Count 295 X10*3/uL (160-400); Red Blood Count 3.17 X10*6/uL (4.20-5.50); Red Cell Distribution Width 14.8 % (11.0-16.0); White Blood Count 12.9 X10*3/uL (4.8-10.8)
[2025-02-28 07:22] LABS: Anion Gap 20 (12-20); Blood Urea Nitrogen 60 mg/dL (9-16); Calcium 8.5 mg/dL (8.4-10.2); Carbon Dioxide 23 mmol/L (22-29); Chloride 100 mmol/L (96-108); Creatinine Clr Calc Pharmacy 10.2; Estimated Glomerular Filt Rate 9; Glucose Random 153 mg/dL (60-115); Magnesium 2.3 mg/dL (1.6-2.6); Potassium 4.3 mmol/L (3.3-5.1); Sodium 139 mmol/L (135-145)
[2025-02-28] MEDS: amLODIPine Besylate 10 MG TABLET G-TUBE (08:46)
[2025-02-28] MEDS: hydrALAZINE HCl 50 MG TABLET G-TUBE ×4 (08:48→21:59)
[2025-02-28] MEDS: Labetalol HCL 100 MG TABLET G-TUBE (08:49)
[2025-02-28] MEDS: Chlorhexidine Gluc Oral Rinse 15 ML MOUTHWASH BUCCAL ×3 (08:49→21:59)
[2025-02-28] MEDS: cloNIDine HCL 0.1 MG TABLET G-TUBE ×2 (08:49→21:52)
[2025-02-28] MEDS: Isosorbide Dinitrate 20 MG TABLET G-TUBE ×3 (08:49→18:47)
[2025-02-28] MEDS: 0.9 % Sodium Chloride Flush 3 ML SYRINGE IVFLUSH ×2 (08:56→16:35)
--- NOTE | 2025-02-28 10:25 | HO.PM.IMPN ---
Subjective Subjective Date of Service: 02/28/25 Interval History: fairly alert today - no complaints, just hoping to be discharged Physical Exam Vital Signs: Vital Signs: Last Vital Signs Temp 96.9 F 02/28/25 07:08 Pulse 70 02/28/25 07:08 Resp 18 02/28/25 07:08 BP 157/62 H 02/28/25 07:08 Pulse Ox 99 02/28/25 07:08 O2 Del Method Room Air 02/28/25 07:08 O2 Flow Rate 2 02/27/25 19:41 FiO2 21 02/14/25 17:00 BMI result Body Mass Index 23.0 alert, frail and ill appearing, fairly vocal able to softly speak full sentences, 2/5 strength on left, 0/5 right Objective Data Active Medications Amlodipine Besylate (Amlodipine Besylate 10 Mg Tablet) 10 mg G-TUBE DAILY [facility]; Protocol Last Admin: 02/28/25 08:46 Dose: 10 mg Documented By: INES Atorvastatin Calcium (Atorvastatin Calcium 80 Mg Tablet) 80 mg G-TUBE BEDTIME [facility] Last Admin: 02/27/25 22:16 Dose: 80 mg Documented By: CAROL Chlorhexidine Gluconate (Chlorhexidine Gluc Oral Rinse 15 Ml Mouthwash) 15 ml BUCCAL TID KENYA Last Admin: 02/28/25 08:49 Dose: 15 ml Documented By: INES Clonidine HCl (Clonidine Hcl 0.1 Mg Tablet) 0.1 mg G-TUBE BID [facility]; Protocol Last Admin: 02/28/25 08:49 Dose: 0.1 mg Documented By: INES Dextrose (Dextrose 50 % 25 Gm/50 Ml Syringe) 25 gm IVPUSH Q15M PRN; Protocol PRN Reason: per Hypoglycemia Standing Ord. Glucose (Glucose Gel 15 Gm Gel..Gram.) 15 gm PO Q15M PRN; Protocol PRN Reason: per Hypoglycemia Standing Ord. Hydralazine HCl (Hydralazine Hcl 20 Mg/Ml Vial) 10 mg IVPUSH Q4H PRN; Protocol PRN Reason: Hypertension Last Admin: 02/23/25 04:32 Dose: 10 mg Documented By: VALERIA Hydralazine HCl (Hydralazine Hcl 50 Mg Tablet) 50 mg G-TUBE QID [facility]; Protocol Last Admin: 02/28/25 08:48 Dose: 50 mg Documented By: INES Dextrose/Sodium Chloride (D51/2ns) 1,000 mls @ 50 mls/hr IVCONT .Q20H [facility] Last Admin: 02/28/25 05:25 Dose: Not Given Documented By: CAROL Non-Admin Reason: IV Running Insulin Human Lispro (Insulin Lispro 100 Unit/Ml 3 Ml Vial) 0 unit SUBCUT Q6H [facility]; Protocol Last Admin: 02/28/25 06:36 Dose: 2 unit Documented By: CAROL Isosorbide Dinitrate (Isosorbide Dinitrate 20 Mg Tablet) 20 mg G-TUBE 0800,1300,1800 [facility]; Protocol Last Admin: 02/28/25 08:49 Dose: 20 mg Documented By: INES Labetalol HCl (Labetalol Hcl 100 Mg Tablet) 100 mg G-TUBE DAILY [facility]; Protocol Last Admin: 02/28/25 08:49 Dose: 100 mg Documented By: INES Levothyroxine Sodium (Levothyroxine Sodium 125 Mcg Tablet) 125 mcg G-TUBE DAILY@0600 [facility] Last Admin: 02/28/25 06:36 Dose: 125 mcg Documented By: CAROL Omeprazole (Omeprazole/Na Bicarb Oral Susp 20 Mg/10 Ml Ud Cup) 40 mg PO BID@0630,1630 [facility] Last Admin: 02/21/25 06:08 Dose: 40 mg Documented By: JOSE Omeprazole (Omeprazole 40 Mg Capsule.Dr) 40 mg PO BID@0630,1630 [facility] Last Admin: 02/28/25 06:36 Dose: 40 mg Documented By: CAROL Sodium Chloride (0.9 % Sodium Chloride Flush 3 Ml Syringe) 3 ml IVFLUSH QSHIFT [facility] Last Admin: 02/28/25 08:56 Dose: 3 ml Documented By: INES Labs 02/28/25 05:59 02/28/25 05:58 Labs: Laboratory Results - last 24 hr 02/25/25 02/27/25 02/27/25 06:30 07:47 11:24 MCV MCH MCHC RDW Plt Count MPV Absolute Nucleated RBC Nucleated RBC % (auto) Anion Gap Estim Creat Clear Calc Estimated GFR POC Glucose 167 H 221 H Random Glucose Calcium Magnesium Blood Type A Positive Antibody Screen NEGATIVE Crossmatch See Detail 02/27/25 02/27/25 02/28/25 17:54 23:54 05:58 MCV MCH MCHC RDW Plt Count MPV Absolute Nucleated RBC Nucleated RBC % (auto) Anion Gap 20 Estim Creat Clear Calc 10.2 Estimated GFR 9 POC Glucose 117 H 147 H Random Glucose 153 H Calcium 8.5 Magnesium 2.3 Blood Type Antibody Screen Crossmatch 02/28/25 02/28/25 05:59 06:06 MCV 88.6 MCH 30.3 MCHC 34.2 RDW 14.8 Plt Count 295 MPV 9.6 Absolute Nucleated RBC 0.000 Nucleated RBC % (auto) 0.0 Anion Gap Estim Creat Clear Calc Estimated GFR POC Glucose 164 H Random Glucose Calcium Magnesium Blood Type Antibody Screen Crossmatch Assessment and Plan (1) Pulmonary aspiration: Status: Acute (2) ESRD on hemodialysis: Status: Acute (3) Renal failure: Status: Acute (4) Duodenal ulcer: Status: Acute (5) Acute on chronic anemia: Status: Acute Plan 79F PMH HTN, HLD, DM, CAD, CVA with right hemiparesis, CKD IV, hypothyroid, LUANA presented on 01/19/25 with AMS, hypoxia, chf. was intubated and admitted to ICU likely secondary to acute on chronic combined systolic and diastolic congestive heart failure, improved with diuresis, extubated on 01/22/2025, reintubated 01/29/25, extubated 02/14/25, further complicated by acute CVA with significant encephalopathy, dysphagia, right hemiplegia found on 04/08/25. course also complicated by GI bleed due to duodenal ulcer s'p embolization 01/30/25, also complicated by KAI/ATN started on HD 01/27/25. acute Toxic metabolic encephalopathy with new left-sided CVA on the background of prior CVA complicated by significant dysphagia mental status improved over last few days, fairly alert and talking softly short sentences on Statin not on ASA\Eliquis given GI bleed EXECUTIVE COACH appreciated - now on pureed with nectar thick liquids - but poor intake neuro appreciated - eeg negative for seizure Upper GI bleed with acute blood loss anemia secondary to duodenal ulcer requiring embolization monitor hgb - received another unit 02/27/25, hgb improved appropriately continue PPI changed to po Acute on chronic combined systolic and diastolic congestive heart failure. improved continue antihypertensive regimen Acute hypoxic respiratory failure secondary to aspiration pneumonia requiring ventilatory support Resolved, extubated on 02/14/2025. Healthcare proxy/family chose DNI\DNR completed antibiotics now on room air KAI due to ATN in CKD IV hemodialysis. Nephrology following (sees Dr. Colvin outpatient, RTane has taken over inpatient), on dialysis s/p permacath, will need rehab bed with HD diabetes mellitus insulin Prophylaxis: Compression therapy due to gi bleed DNR/DNI reason for continued hospitalization: not reliably eating, awaiting hd rehab bed Quality Stroke Does the patient have a stroke diagnosis?: Yes Reason for No Anti-thrombotic by Day Two: N/A - Med Ordered VTE Prior VTE?: No VTE Risk Level:: Medical - moderate - high VTE Device Contraindication: N/A - Device Ordered VTE Drug Contraindication: Treatment Not Tolerated
--- NOTE | 2025-02-28 11:56 | MHC.CLN ---
F/U PO INTAKE CONSISTENTLY 25% DIET RX; PUREED WITH NT LIQ DIET PT RECEIVING GELATEIN TID TO INCREASE KCALS SUPP PROVIDES 480KCALS, 60G PROTEIN MONITOR PO INTAKE AND ENCOURAGE SUPPLEMENT
--- NOTE | 2025-02-28 12:13 | MHC.CM.PN ---
Addendum entered by Rajni Franklin 02/28/25 16:17: Pts daughter Aida requested a referral be sent to [facility], referral sent, in review. Aida declined [facility] bed offer. Original Note: This CM met with pt to discuss discharge plans, pt awake, but not engaging in conversation. This CM called pts daughter/HCP Shravan to discuss discharge plan and review current bed offers: [facility] following but do not have a bed currently, [facility] [place] has offered a bed, [facility] unable to accept. Pt is not appropriate for acute rehab as she is not able to tolerate 3 hours of rehab daily. Shravan is not sure about [facility] and would like to look into it more, she doesn't have a rehab preference, but would like to review more of them, this CM emailed Shravan a list of local facilities to review. Shravan states she would not like her mother to return to [place] or [facility] as she stated the care wasn't good at either of those facilities.
[2025-02-28 12:25] LABS: Glucose, Whole Blood 143 mg/dL (60-115)
--- NOTE | 2025-02-28 13:52 | MHC.SLORD ---
Speech Language Pathology Order Status: PROFILE SHAPER OPERATOR returned to see pt in afternoon, pt more verbal but refused PO. TRAIN STATION SERVER and RN consulted, noting pt is refusing PO but has been tolerating meds in [facility] [place]. PROFILE SHAPER OPERATOR continues to follow, pt will need both dysphagia and dysarthria treatment in post acute rehab setting.
--- NOTE | 2025-02-28 17:42 | P.PNNP_ITS ---
Subjective Subjective Date of Service: 02/28/25 Interval history: Seen and examined, evnts noted Physical Exam 2 Vital Signs: Vital Signs: Last Vital Signs Temp 97.2 F 02/28/25 14:54 Pulse 65 02/28/25 14:54 Resp 18 02/28/25 14:54 BP 153/70 H 02/28/25 14:54 Pulse Ox 99 02/28/25 14:54 O2 Del Method Room Air 02/28/25 14:54 O2 Flow Rate 2 02/27/25 19:41 FiO2 21 02/14/25 17:00 BMI result Body Mass Index 23.0 Const: General: cooperative, comfortable, no acute distress, well developed, alert, awake, ill appearing, lethargic and other ( encephalopathic) N utritional Appearance: average body habitus Orientation/consciousness: p atient oriented x3, lethargic and Other orientation findings ( oriented) HEENT: Head: Yes normal to inspection, Yes normocephalic and Yes atraumatic Eyes: General: appearance normal, both eyes and all related structures S clerae: sclerae normal EOM: EOMs intact bilaterally Neck: Neck: Yes normal visual inspection, Yes full ROM, Yes no lymphadenopathy, Yes no meningeal signs, Yes trachea midline and Yes supple L ymphatic: no lymphadenopathy noted Chest: Chest palpation & inspection: normal inspection of the chest Resp: Effort & Inspection: normal respiratory effort, no audible wheezes, no cough, no respiratory distress and no use of accessory muscles Auscultation: clear to auscultation bilaterally, crackles (Mild bilateral) and diminished lung sounds Cardio: Palpation: normal PMI and no palpable S3 Rate: regular rate and tachycardic Rhythm: regular rhythm and abnormal rhythm irregularly irregular Heart sounds: S1 normal heart sound present, S2 normal heart sound present, no gallops, no murmurs and no rubs GI: Inspection: Yes normal to inspection, No Abdominal wall edema and No distended Palpation (GI): Soft to palpation, not firm, nontender, no guarding, not rigid and Other GI palpation findings present ( Nontender) A uscultation: normal bowel sounds Skin: General skin exam: no rashes or lesions noted and other ( warm) Neuro: General: patient oriented x3, tone normal, moves all extremities and no meningeal signs Motor exam (neuro): no asterixis Extrem: General: Yes normal to inspection, Yes full ROM, Yes capillary refill normal, Yes no clubbing, cyanosis or edema, Yes no pedal edema, No clubbing, No cyanosis and Yes edema (Trace bilateral) Psych: Appearance: grossly normal Objective Data Labs 02/28/25 05:59 02/28/25 05:58 Labs: Laboratory Results - last 24 hr 02/27/25 02/27/25 02/28/25 17:54 23:54 05:58 WBC RBC Hgb Hct MCV MCH MCHC RDW Plt Count MPV Absolute Nucleated RBC Nucleated RBC % (auto) Sodium 139 Potassium 4.3 Chloride 100 Carbon Dioxide 23 Anion Gap 20 BUN 60 H Creatinine 4.51 H* Estim Creat Clear Calc 10.2 Estimated GFR 9 POC Glucose 117 H 147 H Random Glucose 153 H Calcium 8.5 Magnesium 2.3 02/28/25 02/28/25 02/28/25 05:59 06:06 12:22 WBC 12.9 H RBC 3.17 L D Hgb 9.6 L D Hct 28.1 L D MCV 88.6 MCH 30.3 MCHC 34.2 RDW 14.8 Plt Count 295 MPV 9.6 Absolute Nucleated RBC 0.000 Nucleated RBC % (auto) 0.0 Sodium Potassium Chloride Carbon Dioxide Anion Gap BUN Creatinine Estim Creat Clear Calc Estimated GFR POC Glucose 164 H 143 H Random Glucose Calcium Magnesium Microbiology Microbiology Results: Microbiology 01/19/25 07:38 Blood - Venous Blood Culture - Final No growth after 5 days. 01/19/25 07:14 Blood - Venous Blood Culture - Final No growth after 5 days. Procedures Date of Service Date of Service: 02/28/25 Assessment & Plan Assessment and plan (1) Acute kidney injury superimposed on CKD: Status: Acute Plan 1. KAI on adv CKD and now ESRD and Dialysis dependent 2. Anemia: drop in Hb, xfuse to keep Hb > 7.0; epo and ques Fe def 3. MBD of CKD: need to check PTH/vit D and Tx accordingly 4. Hemoaccess: s/p [facility] placement 5. Deconditioned: D/C disposition: will need to go Rehab and [facility] good [facility] as we have HD on site; transition to PD will need to be put on hold and only once she gets stronger can we look at transition to PD REC: cont HD 3x/wk; epo as ordered d/c planning Will follow with team Time Spent With Patient Time: Total time managing care of this patient today ____ minutes. Progress Note: Quality Stroke Does the patient have a stroke diagnosis?: Yes Reason for No Anti-thrombotic by Day Two: N/A - Med Ordered
[2025-02-28 18:43] LABS: Glucose, Whole Blood 103 mg/dL (60-115)
[2025-02-28] MEDS: Dextrose 5 % and 0.45 % NaCl 1,000 ML 50 ML IVCONT (20:00)
[2025-02-28] MEDS: Atorvastatin Calcium 80 MG TABLET G-TUBE (21:52)
[2025-03-01] VITALS (8 sets, daily range): BP systolic 105–165; BP diastolic 52–72; PULSE 68–78; RESP 16–18; TEMP 36.2–36.6; O2SAT 96–99; BMI 20.2
[2025-03-01 01:03] LABS: Glucose, Whole Blood 154 mg/dL (60-115)
[2025-03-01] MEDS: Insulin Lispro 100 UNIT/ML 3 ML VIAL SUBCUT ×3 (01:20→18:26)
[2025-03-01 06:01] LABS: Glucose, Whole Blood 140 mg/dL (60-115)
[2025-03-01 06:11] LABS: Hematocrit 27.2 % (37.0-47.0); Hemoglobin 9.2 g/dl (12.0-16.0); Mean Corpuscular HGB Conc 33.8 g/dl (31.0-35.0); Mean Corpuscular Volume 88.6 fL (80.0-98.0); Mean Platelet Volume 9.3 fL (9.4-12.3); Platelet Count 243 X10*3/uL (160-400); Red Blood Count 3.07 X10*6/uL (4.20-5.50); Red Cell Distribution Width 14.5 % (11.0-16.0)
[2025-03-01 06:23] LABS: Anion Gap 17 (12-20); Blood Urea Nitrogen 35 mg/dL (9-16); Calcium 8.2 mg/dL (8.4-10.2); Carbon Dioxide 24 mmol/L (22-29); Chloride 102 mmol/L (96-108); Estimated Glomerular Filt Rate 16; Glucose Random 135 mg/dL (60-115); Potassium 3.6 mmol/L (3.3-5.1); Sodium 139 mmol/L (135-145)
[2025-03-01] MEDS: Omeprazole 40 MG CAPSULE.DR PO ×2 (06:35→17:55)
[2025-03-01] MEDS: Levothyroxine Sodium 125 MCG TABLET G-TUBE (06:36)
[2025-03-01] MEDS: cloNIDine HCL 0.1 MG TABLET G-TUBE (09:18)
[2025-03-01] MEDS: Isosorbide Dinitrate 20 MG TABLET G-TUBE ×3 (09:18→17:55)
[2025-03-01] MEDS: hydrALAZINE HCl 50 MG TABLET G-TUBE ×3 (09:18→17:55)
[2025-03-01] MEDS: Labetalol HCL 100 MG TABLET G-TUBE (09:18)
[2025-03-01] MEDS: amLODIPine Besylate 10 MG TABLET G-TUBE (09:18)
[2025-03-01 11:08] LABS: Glucose, Whole Blood 193 mg/dL (60-115)
--- NOTE | 2025-03-01 11:20 | MHC.SL.SWA ---
Speech Pathologist Impression: Risk of Aspiration Due to: Medically Fragile Neurological Condition History of Pneumonia Hx of Recent Extubation Reduced Cognition Dysphasia Diet Status: Recommend UPGRADE diet to Ground Mechanical (NDD2) with THIN liquids, pills whole in puree or with liquid. Patient continues to need full 1-1 assistance at all meals. Liquid Consistency and Strategies for Safe Swallow: Liquid Intake Recommendation: Thin Liquid Intake Strategies: Small Sips Solid Food Consistency: Dietary Recommendations: Grnd/Mech Altered (NDD2) Additional Modifications to Solid Foods: Do not attempt if patient presents as overly lethargic. Aspiration precautions. Oral Medication Intake: Whole with Puree Please contact the pharmacy regarding appropriate crushable or liquid drug formulations that are available whenever modified delivery is recommended. Compensatory Strategies and Precautions to be Taken for Safe Swallow: Sitting Upright (90 deg) Liquids from Cup Liquids from Straw Small Bites and Sips Alternate Liquids/Solids Supervision While Eating and Drinking for Safe Swallow: Total Assistance (1:1) Foods to Avoid: Difficult to chew solids, mixed consistencies Swallowing Recommended Treatments: Compens. Strategy Educat. Recommendation for Speech: Inpatient Speech Therapy Speech Therapy through A Speech Therapy through Rehab Facility Comment: Patient seen at breakfast this morning. Patient appeared to be sleeping but woke when lights put on and spoken to, and willing to try some breakfast. Patient was minimally verbal, but comments, when they occurred, were appropriate/coherent (e.g. when mentioned the aguilar of eggs are very high responded I know. ). Patient did initially grimace at purees on tray, but then did accept bites of egg when then were mixed/broken from the block of puree. Patient ate all of the eggs, 1/2 of the nutritional gelatin on tray, took sips of nectar thick juice by cup sip and straw sip, all with normal oral and pharyngeal phases of swallow. Patient given trials of softened cracker in puree, producing slow rotary chew, chewing somewhat prolonged, but thorough, followed by timely swallow. Patient also given sips of water by tsp, cup sip and straw sip, all producing timely swallow, no clinical signs of aspiration. Recommend UPGRADE diet to Ground Mechanical (NDD2) with THIN liquids, pills whole in puree or with liquid. Patient continues to need full 1-1 assistance at all meals. Patient should continue to be regularly followed by PREFLIGHT MECHANIC, will likely be able to upgrade diet further if tolerated. MD/RD notified of recommendation by secure text, RN in person, white board adjusted in room. Frequency/Duration: Daily M-F Date Range for Service Req: Timeline to reassess: Senior Information Security Analyst Clinican/Clinical Fellow: No Supervisory Statement: I have reviewed and agree with the student/clinical fellow's documentation: N/A Speech Language Pathologist: Carole Waldron M.A., CCC-PREFLIGHT MECHANIC
--- NOTE | 2025-03-01 12:20 | MHC.CM.PN ---
Addendum entered by Rajni Franklin 03/01/25 13:47: This CM called pts daughter Jose, she accepts bed offer from [facility] for 03/02. She stated if [facility] happens to offer a bed they would consider that facility also. Original Note: Tentative STR bed offer received from [facility], they state they will likely have a bed available tomorrow 03/02. This CM emailed pts daughter Jose to confirm if she will accept this bed offer, awaiting response from daughter.
--- NOTE | 2025-03-01 13:03 | P.PNIM_ITS ---
Subjective Subjective Date of Service: 03/01/25 Interval History: seen and evaluated alert and interactive more than before able to tolerate NDD2 no other events Review of Systems Review of Systems: Yes all other systems are reviewed and are negative Physical Exam 2 Vital Signs: Vital Signs: Last Vital Signs Temp 97.3 F 03/01/25 11:14 Pulse 78 03/01/25 11:14 Resp 18 03/01/25 11:14 BP 149/68 H 03/01/25 11:14 Pulse Ox 97 03/01/25 11:14 O2 Del Method Room Air 03/01/25 11:14 O2 Flow Rate 2 02/27/25 19:41 FiO2 21 02/14/25 17:00 BMI result Body Mass Index 20.2 Const: Other: Constitutional : more awake and interactive, not in distress Cardiovascular : no JVP, no lower extremity edema Respiratory : bilateral chest movement, not in resp distress Gastrointestinal: soft, lax, Non tender, NG tube in place Skin : Warm, Dry Neurological : more alert and interactive, speech more fluent and comprehensive, wiggling toes, power +2 RUE but no power in LUE Objective Data Active Medications Amlodipine Besylate (Amlodipine Besylate 10 Mg Tablet) 10 mg G-TUBE DAILY KENYA; Protocol Last Admin: 03/01/25 09:18 Dose: 10 mg Documented By: ASHLEE Atorvastatin Calcium (Atorvastatin Calcium 80 Mg Tablet) 80 mg G-TUBE BEDTIME KENYA Last Admin: 02/28/25 21:52 Dose: 80 mg Documented By: CAROL Clonidine HCl (Clonidine Hcl 0.1 Mg Tablet) 0.1 mg G-TUBE BID KENYA; Protocol Last Admin: 03/01/25 09:18 Dose: 0.1 mg Documented By: ASHLEE Dextrose (Dextrose 50 % 25 Gm/50 Ml Syringe) 25 gm IVPUSH Q15M PRN; Protocol PRN Reason: per Hypoglycemia Standing Ord. Glucose (Glucose Gel 15 Gm Gel..Gram.) 15 gm PO Q15M PRN; Protocol PRN Reason: per Hypoglycemia Standing Ord. Hydralazine HCl (Hydralazine Hcl 20 Mg/Ml Vial) 10 mg IVPUSH Q4H PRN; Protocol PRN Reason: Hypertension Last Admin: 02/23/25 04:32 Dose: 10 mg Documented By: HO.THOMPSM Hydralazine HCl (Hydralazine Hcl 50 Mg Tablet) 50 mg G-TUBE QID [facility]; Protocol Last Admin: 03/01/25 11:56 Dose: 50 mg Documented By: ASHLEE Dextrose/Sodium Chloride (D51/2ns) 1,000 mls @ 50 mls/hr IVCONT .Q20H [facility] Last Admin: 02/28/25 20:00 Dose: 50 mls/hr Documented By: CAROL Insulin Human Lispro (Insulin Lispro 100 Unit/Ml 3 Ml Vial) 0 unit SUBCUT Q6H [facility]; Protocol Last Admin: 03/01/25 11:56 Dose: 2 unit Documented By: ASHLEE Isosorbide Dinitrate (Isosorbide Dinitrate 20 Mg Tablet) 20 mg G-TUBE 0800,1300,1800 [facility]; Protocol Last Admin: 03/01/25 11:56 Dose: 20 mg Documented By: ASHLEE Labetalol HCl (Labetalol Hcl 100 Mg Tablet) 100 mg G-TUBE DAILY [facility]; Protocol Last Admin: 03/01/25 09:18 Dose: 100 mg Documented By: ASHLEE Levothyroxine Sodium (Levothyroxine Sodium 125 Mcg Tablet) 125 mcg G-TUBE DAILY@0600 [facility] Last Admin: 03/01/25 06:36 Dose: 125 mcg Documented By: CAROL Omeprazole (Omeprazole/Na Bicarb Oral Susp 20 Mg/10 Ml Ud Cup) 40 mg PO BID@0630,1630 [facility] Last Admin: 02/21/25 06:08 Dose: 40 mg Documented By: JOSE Omeprazole (Omeprazole 40 Mg Capsule.Dr) 40 mg PO BID@0630,1630 [facility] Last Admin: 03/01/25 06:35 Dose: 40 mg Documented By: CAROL Sodium Chloride (0.9 % Sodium Chloride Flush 3 Ml Syringe) 3 ml IVFLUSH QSHIFT [facility] Last Admin: 03/01/25 07:25 Dose: Not Given Documented By: ASHLEE Non-Admin Reason: Previously Administered Labs 03/01/25 05:54 03/01/25 05:54 Labs: Laboratory Results - last 24 hr 02/28/25 03/01/25 03/01/25 18:39 00:58 05:54 MCV 88.6 MCH 30.0 MCHC 33.8 RDW 14.5 Plt Count 243 MPV 9.3 L Absolute Nucleated RBC 0.000 Nucleated RBC % (auto) 0.0 Anion Gap 17 Estim Creat Clear Calc 15.0 Estimated GFR 16 POC Glucose 103 154 H Random Glucose 135 H Calcium 8.2 L 03/01/25 03/01/25 05:55 11:04 MCV MCH MCHC RDW Plt Count MPV Absolute Nucleated RBC Nucleated RBC % (auto) Anion Gap Estim Creat Clear Calc Estimated GFR POC Glucose 140 H 193 H Random Glucose Calcium Assessment and Plan (1) Encephalopathy: Status: Acute (2) Pulmonary aspiration: Status: Acute (3) ESRD on hemodialysis: Status: Acute Plan 79F PMH HTN, HLD, DM, CAD, CVA with right hemiparesis, CKD IV, hypothyroid, LUANA presented on 01/19/25 with AMS, hypoxia, chf. was intubated and admitted to ICU likely secondary to acute on chronic combined systolic and diastolic congestive heart failure, improved with diuresis, extubated on 01/22/2025, reintubated 01/29/25, extubated 02/14/25, further complicated by acute CVA with significant encephalopathy, dysphagia, right hemiplegia found on 04/08/25. course also complicated by GI bleed due to duodenal ulcer s'p embolization 01/30/25, also complicated by KAI/ATN started on HD 01/27/25. acute Toxic metabolic encephalopathy with new left-sided CVA on the background of prior CVA complicated by significant dysphagia mental status improved over last few days, fairly alert and talking softly short sentences on Statin not on ASA\Eliquis given GI bleed LEAD EMBEDDED SOFTWARE ENGINEER appreciated - advance to NDD2 with thin liquids neuro appreciated - eeg negative for seizure Upper GI bleed with acute blood loss anemia secondary to duodenal ulcer requiring embolization monitor hgb - received another unit 02/27/25, hgb improved appropriately continue PPI changed to po Acute on chronic combined systolic and diastolic congestive heart failure. improved continue antihypertensive regimen Acute hypoxic respiratory failure secondary to aspiration pneumonia requiring ventilatory support Resolved, extubated on 02/14/2025. Healthcare proxy/family chose DNI\DNR completed antibiotics now on room air KAI due to ATN in CKD IV hemodialysis. Nephrology following (sees Dr. Colvin outpatient, RTane has taken over inpatient), on dialysis s/p permacath, will need rehab bed with HD diabetes mellitus insulin Prophylaxis: Compression therapy due to gi bleed DNR/DNI reason for continued hospitalization: not reliably eating, awaiting hd rehab bed Quality Stroke Does the patient have a stroke diagnosis?: Yes Reason for No Anti-thrombotic by Day Two: N/A - Med Ordered VTE Prior VTE?: No VTE Risk Level:: Medical - moderate - high VTE Device Contraindication: N/A - Device Ordered VTE Drug Contraindication: Treatment Not Tolerated
--- NOTE | 2025-03-01 14:09 | PM.PNNEP ---
Subjective Subjective Date of Service: 03/01/25 Interval history: seen and examined d/w daughter at bedside no complaints Physical Exam Vital Signs: Vital Signs: Last Vital Signs Temp 97.3 F 03/01/25 11:14 Pulse 78 03/01/25 11:14 Resp 18 03/01/25 11:14 BP 149/68 H 03/01/25 11:14 Pulse Ox 97 03/01/25 11:14 O2 Del Method Room Air 03/01/25 11:14 O2 Flow Rate 2 02/27/25 19:41 FiO2 21 02/14/25 17:00 BMI result Body Mass Index 20.2 Const: General: no acute distress HEENT: Head: Yes normocephalic and Yes atraumatic Resp: Auscultation: diminished lung sounds Cardio: Heart sounds: S1 normal heart sound present and S2 normal heart sound present GI: Palpation (GI): Soft to palpation and nontender Extrem: Right upper extremity: edema Objective Data Labs 03/01/25 05:54 03/01/25 05:54 Labs: Laboratory Results - last 24 hr 02/28/25 03/01/25 03/01/25 18:39 00:58 05:54 WBC 12.0 H RBC 3.07 L Hgb 9.2 L Hct 27.2 L MCV 88.6 MCH 30.0 MCHC 33.8 RDW 14.5 Plt Count 243 MPV 9.3 L Absolute Nucleated RBC 0.000 Nucleated RBC % (auto) 0.0 Sodium 139 Potassium 3.6 Chloride 102 Carbon Dioxide 24 Anion Gap 17 BUN 35 H Creatinine 2.88 H Estim Creat Clear Calc 15.0 Estimated GFR 16 POC Glucose 103 154 H Random Glucose 135 H Calcium 8.2 L 03/01/25 03/01/25 05:55 11:04 WBC RBC Hgb Hct MCV MCH MCHC RDW Plt Count MPV Absolute Nucleated RBC Nucleated RBC % (auto) Sodium Potassium Chloride Carbon Dioxide Anion Gap BUN Creatinine Estim Creat Clear Calc Estimated GFR POC Glucose 140 H 193 H Random Glucose Calcium Microbiology Microbiology Results: Microbiology 01/19/25 07:38 Blood - Venous Blood Culture - Final No growth after 5 days. 01/19/25 07:14 Blood - Venous Blood Culture - Final No growth after 5 days. Procedures Date of Service Date of Service: 03/01/25 Assessment & Plan Assessment and plan (1) ESRD (end stage renal disease): Status: Acute (2) HFrEF (heart failure with reduced ejection fraction): Status: Acute (3) Anemia: Status: Acute Plan advanced CKD now ESRD followed by Dr Colvin ultimately interested in PD known HFrEF LVEF 29% and diastolic dysfunction nephrogenic anemia REC HD in am renal diet P binders [facility] in progress [facility] Time Spent With Patient Time: Total time managing care of this patient today ____ minutes. Progress Note: Quality Stroke Does the patient have a stroke diagnosis?: Yes Reason for No Anti-thrombotic by Day Two: N/A - Med Ordered
[2025-03-01] MEDS: Dextrose 5 % and 0.45 % NaCl 1,000 ML 50 ML IVCONT (15:50)
[2025-03-01 17:57] LABS: Glucose, Whole Blood 174 mg/dL (60-115)
[2025-03-01] MEDS: cloNIDine HCL 0.1 MG TABLET PO (22:27)
[2025-03-01] MEDS: Atorvastatin Calcium 80 MG TABLET PO (22:27)
[2025-03-01] MEDS: hydrALAZINE HCl 50 MG TABLET PO (22:30)
[2025-03-01] MEDS: 0.9 % Sodium Chloride Flush 3 ML SYRINGE IVFLUSH (22:31)
[2025-03-02] VITALS: BP 142/65; PULSE 65; RESP 19; TEMP 36.6; O2SAT 96
[2025-03-02 00:23] LABS: Glucose, Whole Blood 171 mg/dL (60-115)
[2025-03-02] MEDS: Insulin Lispro 100 UNIT/ML 3 ML VIAL SUBCUT (01:10)
[2025-03-02 03:42] VITALS: BP 133/63; PULSE 63; RESP 19; TEMP 36.7; O2SAT 98
[2025-03-02] MEDS: Levothyroxine Sodium 125 MCG TABLET PO (06:15)
[2025-03-02] MEDS: Omeprazole 40 MG CAPSULE.DR PO (06:15)
[2025-03-02 06:35] LABS: Glucose, Whole Blood 129 mg/dL (60-115)
[2025-03-02 08:00] VITALS: BP 162/72; PULSE 56; RESP 16; TEMP 36; O2SAT 99
--- NOTE | 2025-03-02 08:00 | PC.NURSE ---
Patient taken to dialysis at this time in bed.
--- NOTE | 2025-03-02 09:10 | MHC.CM.PN ---
PT HAS OUTPT HD SLOT AT [facility] T//WED FIRST SHIFT PER NEPHROLOGY, SILVESTRE ERAZO NOW UNSURE IF THEY WILL TAKE HER, [facility]
[2025-03-02 09:38] LABS: MANUAL DIFF FLAG NO
[2025-03-02 09:42] LABS: Basophils Absolute Auto 0.1 X10*3/uL (0.0-0.2); Basophils Percent Auto 0.7 % (0-2); Eosinophils Absolute Auto 0.1 X10*3/uL (0.0-0.4); Hemoglobin 8.3 g/dl (12.0-16.0); Imm Gran Abs Auto 0.36 X10*3/uL (0.00-0.03); Imm Gran Pct Auto 3.7 % (0.0-0.4); Lymphocytes Absolute Auto 0.7 X10*3/uL (1.2-4.9); Lymphocytes Percent Auto 7.4 % (20-40); Mean Corpuscular HGB Conc 33.2 g/dl (31.0-35.0); Mean Corpuscular Hemoglobin 30.1 pg (27.0-33.0); Mean Corpuscular Volume 90.6 fL (80.0-98.0); Mean Platelet Volume 9.7 fL (9.4-12.3); Monocytes Absolute Auto 0.6 X10*3/uL (0.1-1.2); Monocytes Percent Auto 6.6 % (2-11); Neutrophils Absolute Auto 7.8 x10*3/uL (2.0-8.3); Neutrophils Percent Auto 80.6 % (45-73); Platelet Count 229 X10*3/uL (160-400); Red Blood Count 2.76 X10*6/uL (4.20-5.50); Red Cell Distribution Width 14.6 % (11.0-16.0); White Blood Count 9.7 X10*3/uL (4.8-10.8)
[2025-03-02 09:57] LABS: Anion Gap 12 (12-20); Blood Urea Nitrogen 47 mg/dL (9-16); Calcium 7.7 mg/dL (8.4-10.2); Carbon Dioxide 26 mmol/L (22-29); Chloride 101 mmol/L (96-108); Creatinine Clr Calc Pharmacy 11.7; Estimated Glomerular Filt Rate 12; Glucose Random 141 mg/dL (60-115); Potassium 3.7 mmol/L (3.3-5.1); Sodium 135 mmol/L (135-145)
[2025-03-02] MEDS: Dextrose 5 % and 0.45 % NaCl 1,000 ML 50 ML IVCONT (10:12)
--- NOTE | 2025-03-02 11:41 | MHC.SL.SWA ---
Speech Pathologist Impression: Risk of Aspiration, Oropharyngeal Dysphagia Risk of Aspiration Due to: Medically Fragile Neurological Condition History of Pneumonia Hx of Recent Extubation Reduced Cognition Dysphasia Diet Status: Continue on Ground Mechanical (NDD2) diet with THIN liquids, pills whole in puree or with liquid. Patient continues to need full 1-1 assistance at all meals. Liquid Consistency and Strategies for Safe Swallow: Liquid Intake Recommendation: Thin Liquid Intake Strategies: Small Sips Solid Food Consistency: Dietary Recommendations: Grnd/Mech Altered (NDD2) Additional Modifications to Solid Foods: Do not attempt if patient presents as overly lethargic. Aspiration precautions. Oral Medication Intake: Whole with Puree Please contact the pharmacy regarding appropriate crushable or liquid drug formulations that are available whenever modified delivery is recommended. Compensatory Strategies and Precautions to be Taken for Safe Swallow: Sitting Upright (90 deg) Liquids from Cup Liquids from Straw Small Bites and Sips Alternate Liquids/Solids Supervision While Eating and Drinking for Safe Swallow: Total Assistance (1:1) Foods to Avoid: Difficult to chew solids, mixed consistencies Swallowing Recommended Treatments: Compens. Strategy Educat. Recommendation for Speech: Inpatient Speech Therapy Speech Therapy through [facility] Speech Therapy through Rehab Facility Frequency/Duration: Daily M-F Date Range for Service Req: Timeline to reassess: Packing Inspector Clinican/Clinical Fellow: Yes: Farhana Ford Supervisory Statement: I have reviewed and agree with the student/clinical fellow's documentation: Yes Speech Language Pathologist: Carmita Hurtado M.A., CCC-BUSINESS ACCOUNT SPECIALIST
[2025-03-02 12:00] VITALS: BP 182/64; PULSE 72; RESP 18; TEMP 36.1; O2SAT 100
[2025-03-02 12:17] VITALS: BMI 20.2
--- NOTE | 2025-03-02 12:21 | MHC.CLN ---
F/U PO INTAKE 25% CONSISTENTLY DIET UPGRADED TO MS GRD PER WEB INTERFACE DEVELOPER PT RECEIVING GELATEIN TID TO INCREASE KCALS PROVIDES 480KCALS, 60G PROTEIN NEW DTI COCCYX NOTED WILL START ENSURE CLEAR BID TO PROMOTE WOUND HEALING SUPP TO PROVIDE 480KCALS, 16G PROTEIN MONITOR PO INTAKE AND ENCOURAGE SUPPLEMENTS SEE ALSO FULL CLINICAL NUTRITION ASSESSMENT
[2025-03-02] MEDS: amLODIPine Besylate 10 MG TABLET PO (12:37)
[2025-03-02] MEDS: Labetalol HCL 100 MG TABLET PO (12:37)
[2025-03-02] MEDS: Isosorbide Dinitrate 20 MG TABLET PO ×2 (12:37→17:12)
[2025-03-02] MEDS: cloNIDine HCL 0.1 MG TABLET PO ×2 (12:37→20:01)
[2025-03-02] MEDS: hydrALAZINE HCl 50 MG TABLET PO ×3 (12:37→20:01)
[2025-03-02] MEDS: 0.9 % Sodium Chloride Flush 3 ML SYRINGE IVFLUSH ×2 (12:38→17:12)
[2025-03-02 12:40] LABS: Glucose, Whole Blood 144 mg/dL (60-115)
--- NOTE | 2025-03-02 12:59 | MHC.CM.PN ---
IMM 03/02/25, PT MEDICALLY CLEARED TO DC TO [facility] AT [facility], ERIN CONTACTED PT'S DTR AUDREY AT NUMBER ON FILE AND AUDREY IS AGREEABLE TO RADHA GONZALEZ FOR BLS TRANSPORT AT 5:30PM
--- NOTE | 2025-03-02 13:28 | PM.DS ---
DS: Providers Provider Date of Service: 03/02/25 Date of admission: 01/19/25 09:34 Date of discharge: 03/02/25 Primary care physician: Tyree Amador MD Consults: 01/20/25 08:49 Consult to Cardiology Routine Consulting Provider: Delvin Peralta Reason for consultation: ?New-Onset HF 01/23/25 08:23 Consult to Nephrology Routine Consulting Provider: [facility] Reason for consultation: KAI on CKD Has provider been notified: No 01/30/25 10:06 Consult to Gastroenterology Routine Consulting Provider: Ra Clay Reason for consultation: upper GI bleed Has provider been notified: No 02/16/25 10:18 Consult to Wound Care Routine Reason for consultation: DTI to coccyx 02/17/25 15:50 Consult to General Surgery Routine Consulting Provider: [facility] Reason for consultation: PEG tube placement. 02/21/25 11:20 Consult to Neurology Routine Consulting Provider: [facility] Reason for consultation: stroke 02/06/25 02/22/25 12:55 Consult to Nephrology Routine Consulting Provider: [facility] Reason for consultation: ATN, now on HD 03/01/25 19:04 Consult to Wound Care Routine Reason for consultation: re-assess wounds to coccyx/[place] area DS: Diagnosis Discharge Diagnosis (1) ESRD (end stage renal disease): Status: Acute (2) HFrEF (heart failure with reduced ejection fraction): Status: Acute (3) Anemia: Status: Acute (4) Encephalopathy: Status: Acute (5) Pulmonary aspiration: Status: Acute (6) ESRD on hemodialysis: Status: Acute (7) Duodenal ulcer: Status: Acute (8) Acute on chronic anemia: Status: Acute (9) UGIB (upper gastrointestinal bleed): Status: Acute (10) Hypernatremia: Status: Acute (11) Metabolic encephalopathy: Status: Acute (12) NSTEMI (non-ST elevated myocardial infarction): Status: Acute (13) Acute combined systolic and diastolic congestive heart failure: Status: Acute (14) Pulmonary edema: Status: Acute (15) Acute hypoxic respiratory failure: Status: Acute (16) Sacral decubitus ulcer, stage II: Status: Acute DS: Summary Hospital Course Hospital Course: The patient had prolonged hospital stay. for full details please return to EMR. Admission note HPI Patient is a 79 Y F w/ hypertension, hyperlipidemia, diabetes mellitus, c/b CAD, prior CVA c/b R hemiparesis, hypothyroidism, and LUANA presenting from nursing facility to emergency department on 01/19 w/ obtundation, found to be hypoxic; in emergency department, patient intubated, found to have CT C c/f pulmonary edema and/or pneumonia. Hospital course A 79 years old lady with PMH HTN, HLD, DM, CAD, CVA with right hemiparesis, CKD IV, hypothyroid, LUANA presented on 01/19/25 with AMS, hypoxia, chf. was intubated and admitted to ICU likely secondary to acute on chronic combined systolic and diastolic congestive heart failure, improved with diuresis, extubated on 01/22/2025, reintubated 01/29/25, extubated 02/14/25, further complicated by acute CVA with significant encephalopathy, dysphagia, right hemiplegia found on 04/08/25. course also complicated by GI bleed due to duodenal ulcer s'p embolization 01/30/25, also complicated by KAI/ATN started on HD 01/27/25. # acute Toxic metabolic encephalopathy with new left-sided CVA on the background of prior CVA complicated by significant dysphagia EEG negative for seizure. MR brain Acute infarcts in the left basal ganglia and left posterior parietal lobe. CT head Moderate changes of small vessel ischemia. Old lacunar type infarcts bilateral basal ganglia and bilateral thalami. mental status improved over last few days, fairly alert and talking softly short sentences and ability to tolerate more diet as she was followed by [employer] team. advanced to NDD2 with thin liquids. restarted on Statin. not on ASA\Eliquis given GI bleed. Discussed with her HCP who would like to discuss that with her backup sawyer as outpatient. PT recommended STR. will be discharged for therapy. Will need aspiration precautions all the time and follow up with [employer]. # Upper GI bleed with acute blood loss anemia secondary to duodenal ulcer requiring embolization. received blood trnasfusion with Hb improved appropriately. Treated with IV Pantoprazole. continue Omeprazole on discharge. # Acute on chronic combined systolic and diastolic congestive heart failure. improved . continue antihypertensive regimen. Fluid management per dialysis. # Acute hypoxic respiratory failure secondary to aspiration pneumonia requiring ventilatory support. Resolved, extubated on 02/14/2025. Healthcare proxy/family chose DNI\DNR completed antibiotics treatment for pneumonia while inpatient. now on room air # KAI due to ATN in CKD IV hemodialysis. Nephrology following. sees Dr. Colvin outpatient, on dialysis MWF. s/p permacath, will need to follow with nephrology as outpatient # Sacral ulcer stage II. noted while inpatient. Use silver alginate to wound bed, gauze, abd and paper tape. recurrent rotation in bed. Discharge plan Decrease Gabapentin to 100 mg and increase as tolerated Continue to hold Eliquis, to discuss the need with cardiology given new dialysis. Hold Insulin Glargine, to reassess the need as outpatient. Use SSI for now Hydralazine 50 mg three times a day Isosorbide binitrate 20 mg three times a day Omeprazole 40 mg daily Physical therapy as tolerated Follow with nephrology for outpatient dialysis Time Attestation Discharge Coordination Time (in mins): 54 Quality: Safe Use of Opioids Does Pt have an Active Cancer Diagnosis on the Problem List?: No Quality: Stroke Does the patient have a stroke diagnosis?: No Physical Exam Vital Signs: Vital Signs: Last Vital Signs Temp 96.8 F 03/02/25 08:00 Pulse 56 03/02/25 08:00 Resp 16 03/02/25 08:00 BP 162/72 H 03/02/25 08:00 Pulse Ox 99 03/02/25 08:00 O2 Del Method Room Air 03/02/25 08:00 O2 Flow Rate 2 02/27/25 19:41 FiO2 21 02/14/25 17:00 BMI result Body Mass Index 20.2 Const: Other: Constitutional : more awake and interactive, not in distress Cardiovascular : no JVP, no lower extremity edema Respiratory : bilateral chest movement, not in resp distress Gastrointestinal: soft, lax, Non tender Skin : Warm, Dry, Dialysis catheter in place Neurological : more alert and interactive, speech more fluent and comprehensive, wiggling toes, power +2 RUE but no power in LUE DS: Data Data Completed and Pending Labs on day of discharge: Laboratory Results - last 24 hr 03/01/25 03/02/25 03/02/25 17:52 00:19 06:29 WBC RBC Hgb Hct MCV MCH MCHC RDW Plt Count MPV Immature Gran % (Auto) Neut % (Auto) Lymph % (Auto) [place] % (Auto) Eos % (Auto) Baso % (Auto) Lymph # (Auto) [place] # (Auto) Eos # (Auto) Baso # (Auto) Abs Immat Gran (auto) Absolute Neuts (auto) Absolute Nucleated RBC Nucleated RBC % (auto) Sodium Potassium Chloride Carbon Dioxide Anion Gap BUN Creatinine Estim Creat Clear Calc Estimated GFR POC Glucose 174 H 171 H 129 H Random Glucose Calcium 03/02/25 03/02/25 09:12 12:31 WBC 9.7 RBC 2.76 L Hgb 8.3 L Hct 25.0 L MCV 90.6 MCH 30.1 MCHC 33.2 RDW 14.6 Plt Count 229 MPV 9.7 Immature Gran % (Auto) 3.7 H Neut % (Auto) 80.6 H Lymph % (Auto) 7.4 L [place] % (Auto) 6.6 Eos % (Auto) 1.0 Baso % (Auto) 0.7 Lymph # (Auto) 0.7 L [place] # (Auto) 0.6 Eos # (Auto) 0.1 Baso # (Auto) 0.1 Abs Immat Gran (auto) 0.36 H Absolute Neuts (auto) 7.8 Absolute Nucleated RBC 0.000 Nucleated RBC % (auto) 0.0 Sodium 135 Potassium 3.7 Chloride 101 Carbon Dioxide 26 Anion Gap 12 BUN 47 H Creatinine 3.70 H Estim Creat Clear Calc 11.7 Estimated GFR 12 POC Glucose 144 H Random Glucose 141 H Calcium 7.7 L D Imaging MRI - head: Radiologist's impression: ITS Impressions Head CT 01/19/25 08:11 IMPRESSION: 1. No acute intracranial abnormality. Stable chronic white matter changes likely related to small vessel ischemia. 2. Endotracheal tube and enteric tube course to the oropharynx. 3. Moderate degenerative arthropathy left TM joint. Electronically signed by: Lon Spears MD 01/19/2025 09:15 AM [facility] Chest CT 01/19/25 08:33 IMPRESSION: 1. ET tube, and OG tube in good position. 2. Small layering pleural effusions bilaterally. 3. Mild cardiomegaly, with diffuse consolidations oriented dependently involving the majority of the bilateral posterior upper lobes and lower lobes. Air bronchograms present. Associated upper lobe groundglass opacities with interposed smooth interlobular septal thickening (crazy paving appearance) is highly suggestive of interstitial and alveolar pulmonary edema in this setting. Multifocal pneumonia is not excluded given the appearance. No pneumothorax. 4. Extensive atheromatous coronary and arterial calcifications. Enlarged main pulmonary artery suggests increased pulmonary pressures. 5. Low attenuating prominent mediastinal lymph nodes, nonspecific, but can be seen in the setting of CHF. 6. Cholelithiasis. 7. Enlarged portal veins, likely on the basis of increased right heart pressures. 8. Moderate to severe atrophy of the pancreas. 9. Additional ancillary findings as detailed in the body of the report. Electronically signed by: Lno Spears MD 01/19/2025 09:28 AM EST RP Renal Ultrasound 01/23/25 16:14 IMPRESSION: 1. Moderate to severe diffuse right renal atrophy. 2. No hydronephrosis of either kidney. 3. 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 4. Incidental note made of echogenic sludge with tiny gallstones layering within the gallbladder. Electronically signed by: Lon Spears MD 01/23/2025 04:57 PM EST RP Chest X-Ray 01/24/25 13:10 IMPRESSION: Feeding tube ending likely in the stomach region. Electronically signed by: George Johnson MD 01/24/2025 02:01 PM EST RP Chest X-Ray 01/30/25 09:25 IMPRESSION: Endotracheal tube is at the jeremías facing the right bronchus and needs withdrawal at least by 2 cm. Right central venous catheter and enteric tube are in good position. The lungs are clear. Electronically signed by: Rony Viera MD 01/30/2025 09:40 AM EST RP Embolization 01/30/25 17:51 IMPRESSION: Angiogram does not demonstrate evidence of active extravasation or arterial abnormality. However, given clinical scenario, we elected to empirically embolize the gastroduodenal artery. This was successfully done with detachable coils. RECOMMENDATION: Acute right leg straight for 4 hours and monitor right groin puncture site. Electronically signed by: Mayank De La Rosa MD 01/30/2025 05:32 PM EST RP Abdomen X-Ray 02/07/25 11:50 IMPRESSION: 1. No acute findings of the abdomen. 2. GI clips previously seen in the region of the duodenal bulb at migrated distally and are now located directly overlying the mid sacrum. This could potentially be within sigmoid colon or small bowel. 3. GDA coil mass. 4. Temperature probe within the rectum. Electronically signed by: Lon Spears MD 02/07/2025 12:11 PM EDT RP Brain MRI 02/07/25 14:45 IMPRESSION: Acute infarcts in the left basal ganglia and left posterior parietal lobe. Electronically signed by: Fred Arias MD 02/07/2025 03:47 PM EDT RP Chest X-Ray 02/14/25 14:03 IMPRESSION: Lines and tubes in place as described. No acute cardiopulmonary abnormality. Electronically signed by: Fred Arias MD 02/14/2025 02:53 PM EDT RP Head CT 02/26/25 15:31 IMPRESSION: 1. No acute intracranial abnormality. 2. Moderate changes of small vessel ischemia. Old lacunar type infarcts bilateral basal ganglia and bilateral thalami. 3. Mildly age advanced cerebral and cerebellar involutional changes. 4. MRI could be performed for more definitive evaluation. Electronically signed by: Lon Spears MD 02/26/2025 04:20 PM EDT RP Discharge Plan Discharge Anticipated Discharge Date/Time: 03/02/25 13:14 Patient Disposition: [facility] Discharge Diagnosis: Acute renal failure on Dialysis Blood loss anemia from Duodenal ulcer Aspiration pneumonia Referrals: [facility] [Outside] - 1 Day (SHORT TERM REHAB ) Tyree Amador MD [Primary Care Provider] - 1 Week Discharge Medications: New isosorbide dinitrate 20 mg Tablet 20 mg PO TID@0800,1300,1800 Qty: 90 0RF Protocol: Hold for SBP< HOLD for SBP < : 90 gabapentin 100 mg Capsule 100 mg PO BEDTIME Qty: 90 0RF Konvomep 2-84 mg/mL Suspension For Reconstitution 20 ml PO DAILY 30 Days Qty: 600 0RF Continued sennosides [senna] 8.6 mg Tablet 17.2 mg PO BEDTIME clonidine HCl 0.1 mg tablet 0.1 mg PO BID acetaminophen 325 mg Tablet 650 mg PO Q6H PRN (Reason: Pain/Fever) magnesium hydroxide [Milk of Magnesia] 400 mg/5 mL Suspension 5 ml PO DAILY PRN (Reason: Constipation) bisacodyl 10 mg Suppository 10 mg RI DAILY PRN (Reason: Constipation) levothyroxine 125 mcg tablet 125 mcg PO DAILY@0600 docusate sodium 100 mg Capsule 100 mg PO DAILY polyethylene glycol 3350 [Miralax] 17 gram/dose Powder 17 g PO DAILY labetalol 100 mg Tablet 100 mg PO DAILY insulin lispro [Humalog KwikPen Insulin] 100 unit/mL Insulin Pen 1 sliding scale dose SUBCUT USEASDIRECTD Protocol: Insulin Correction Scale Less than or equal to 110 ---- Give (units): 0 111 to 150 Give (units): 0 151 to 200 Give (units): 2 201 to 250 Give (units): 4 251 to 300 Give (units): 6 301 to 350 Give (units): 8 Greater than 350 Give (units): 10 Call MD if Blood Glucose > : 350 cholecalciferol (vitamin D3) [Vitamin D3] 50 mcg (2,000 unit) Tablet 50 mcg PO DAILY magnesium oxide 400 mg magnesium Tablet 400 mg PO DAILY alpha lipoic acid 200 mg capsule 600 mg PO BEDTIME mecobalamin (vitamin B12) 1,000 mcg tablet,chewable 1,000 mcg PO DAILY ascorbic acid (vitamin C) 250 mg tablet 250 mg PO BID atorvastatin 20 mg tablet 80 mg PO BEDTIME amlodipine 10 mg tablet 10 mg PO DAILY icosapent ethyl [Vascepa] 1 gram capsule 1 g PO BID Changed hydralazine 50 mg tablet 50 mg PO QID Qty: 90 0RF Held gabapentin 600 mg tablet 600 mg PO BEDTIME Hold Instructions: Advance to 600 mg as tolerated. Rx Instructions: qid Discontinued ferrous sulfate 137 mg (45 mg iron) Tablet Extended Release 137 mg PO DAILY insulin glargine [Lantus Solostar U-100 Insulin] 100 unit/mL (3 mL) Insulin Pen 20 unit SUBCUT BEDTIME Eliquis 2.5 mg tablet 2.5 mg PO BID bumetanide 1 mg tablet 1 mg PO Q48H omeprazole 20 mg capsule,delayed release(DR/EC) 40 mg PO DAILY@0630 sodium bicarbonate 650 mg tablet 1,300 mg PO TID Discharge Orders: Discharge Order (Routine); Ordered 03/02/25 Ordered By: Alma Christiansen Diet: Diabetic diet Activity on Discharge: As tolerated Stand Alone Forms: Patient Portal Discharge page Print Language: Macedonian Care Plan Goals: Decrease Gabapentin to 100 mg and increase as tolerated Continue to hold Eliquis, to discuss the need with cardiology given new dialysis. Hold Insulin Glargine, to reassess the need as outpatient. Use SSI for now Hydralazine 50 mg three times a day Isosorbide binitrate 20 mg three times a day Omeprazole 40 mg daily Physical therapy as tolerated Follow with nephrology for outpatient dialysis Health Concerns: Acute stroke GI bleed and duodenal ulcer Dysphagia Plan of Treatment: Speech therapy Blood pressure control PHysical therapy Dialysis Assessment: as above
--- NOTE | 2025-03-02 14:50 | PM.PROC ---
Brief Operative Note Date of procedure: 02/23/25 Pre-op diagnosis: Needs alf acces for HD Post-op diagnosis: same Procedure: Right IJ 23 cm Permacath placed with tip in right Atrium. Ok for use. See dictation in PACS for full report. Procedure performed by Dr. De La Rosa
[2025-03-02 15:27] VITALS: BP 131/63; PULSE 68; RESP 15; TEMP 36.2; O2SAT 99
--- NOTE | 2025-03-02 17:39 | PM.PNNEP ---
Subjective Subjective Date of Service: 03/02/25 Interval history: Seen and exmaied, events noted Physical Exam Vital Signs: Vital Signs: Last Vital Signs Temp 97.2 F 03/02/25 15:27 Pulse 68 03/02/25 15:27 Resp 15 03/02/25 15:27 BP 131/63 03/02/25 15:27 Pulse Ox 99 03/02/25 15:27 O2 Del Method Room Air 03/02/25 15:27 O2 Flow Rate 2 02/27/25 19:41 FiO2 21 02/14/25 17:00 BMI result Body Mass Index 20.2 Const: General: cooperative, healthy appearing, comfortable, no acute distress, well developed, alert, awake, ill appearing, lethargic and other ( encephalopathic) Nutritional Appearance: average body habitus Orientation/consciousness: patient oriented x3, lethargic and Other orientation findings ( oriented) HEENT: Head: Yes normal to inspection, Yes normocephalic and Yes atraumatic Eyes: General: appearance normal, both eyes and all related structures Sclerae: sclerae normal EOM: EOMs intact bilaterally Neck: Neck: Yes normal visual inspection, Yes full ROM, Yes no lymphadenopathy, Yes no meningeal signs, Yes trachea midline and Yes supple Lymphatic: no lymphadenopathy noted Chest: Chest palpation & inspection: normal inspection of the chest Resp: Effort & Inspection: normal respiratory effort, no audible wheezes, no cough, no respiratory distress and no use of accessory muscles Auscultation: clear to auscultation bilaterally, crackles (Mild bilateral) and diminished lung sounds Cardio: Palpation: normal PMI and no palpable S3 Rate: regular rate and tachycardic Rhythm: regular rhythm and abnormal rhythm irregularly irregular Heart sounds: S1 normal heart sound present, S2 normal heart sound present, no gallops, no murmurs and no rubs GI: Inspection: Yes normal to inspection, No Abdominal wall edema and No distended Palpation (GI): Soft to palpation, not firm, nontender, no guarding, not rigid and Other GI palpation findings present ( Nontender) Auscultation: normal bowel sounds Skin: General skin exam: no rashes or lesions noted and other ( warm) Neuro: General: patient oriented x3, tone normal, moves all extremities and no meningeal signs Motor exam (neuro): no asterixis Extrem: General: Yes normal to inspection, Yes full ROM, Yes capillary refill normal, Yes no clubbing, cyanosis or edema, Yes no pedal edema, No clubbing, No cyanosis and Yes edema (Trace bilateral) Right upper extremity: edema Psych: Appearance: grossly normal Objective Data Labs 03/02/25 09:12 03/02/25 09:12 Labs: Laboratory Results - last 24 hr 03/01/25 03/02/25 03/02/25 17:52 00:19 06:29 WBC RBC Hgb Hct MCV MCH MCHC RDW Plt Count MPV Immature Gran % (Auto) Neut % (Auto) Lymph % (Auto) Will % (Auto) Eos % (Auto) Baso % (Auto) Lymph # (Auto) Will # (Auto) Eos # (Auto) Baso # (Auto) Abs Immat Gran (auto) Absolute Neuts (auto) Absolute Nucleated RBC Nucleated RBC % (auto) Sodium Potassium Chloride Carbon Dioxide Anion Gap BUN Creatinine Estim Creat Clear Calc Estimated GFR POC Glucose 174 H 171 H 129 H Random Glucose Calcium 03/02/25 03/02/25 09:12 12:31 WBC 9.7 RBC 2.76 L Hgb 8.3 L Hct 25.0 L MCV 90.6 MCH 30.1 MCHC 33.2 RDW 14.6 Plt Count 229 MPV 9.7 Immature Gran % (Auto) 3.7 H Neut % (Auto) 80.6 H Lymph % (Auto) 7.4 L Will % (Auto) 6.6 Eos % (Auto) 1.0 Baso % (Auto) 0.7 Lymph # (Auto) 0.7 L Will # (Auto) 0.6 Eos # (Auto) 0.1 Baso # (Auto) 0.1 Abs Immat Gran (auto) 0.36 H Absolute Neuts (auto) 7.8 Absolute Nucleated RBC 0.000 Nucleated RBC % (auto) 0.0 Sodium 135 Potassium 3.7 Chloride 101 Carbon Dioxide 26 Anion Gap 12 BUN 47 H Creatinine 3.70 H Estim Creat Clear Calc 11.7 Estimated GFR 12 POC Glucose 144 H Random Glucose 141 H Calcium 7.7 L D Microbiology Microbiology Results: Microbiology 01/19/25 07:38 Blood - Venous Blood Culture - Final No growth after 5 days. 01/19/25 07:14 Blood - Venous Blood Culture - Final No growth after 5 days. Procedures Date of Service Date of Service: 03/02/25 Assessment & Plan Assessment and plan (1) ESRD (end stage renal disease): Status: Acute (2) HFrEF (heart failure with reduced ejection fraction): Status: Acute (3) Anemia: Status: Acute Plan advanced CKD now ESRD followed by Dr Colvin ultimately interested in PD known HFrEF LVEF 29% and diastolic dysfunction nephrogenic anemia REC HD 3x/wk renal diet P binders [facility] placement in progress (will need rehab [facility] or [facility]) [facility] spot [facility] 1 shift Time Spent With Patient Time: Total time managing care of this patient today ____ minutes. Progress Note: Quality Stroke Does the patient have a stroke diagnosis?: No Reason for No Anti-thrombotic by Day Two: N/A - Med Ordered
[2025-03-02 19:57] VITALS: BP 147/63; PULSE 82; RESP 16; TEMP 36.3; O2SAT 100
[2025-03-02] MEDS: Gabapentin 100 MG CAPSULE PO (20:00)
[2025-03-02] MEDS: Atorvastatin Calcium 80 MG TABLET PO (20:01)
[2025-03-02 21:01] LABS: Glucose, Whole Blood 178 mg/dL (60-115)
== END 2025-03-02 21:00 | disposition skilled nursing facility (03) | DRG 270 ==
LOC: HO.ED 09:19 → HO.EDOVER 09:39 → HO.ICU 09:47 → HO.IMC 02-15 10:52
PROVIDERS: Internal Medicine; Internal Medicine Critical Care Medicine; Internal Medicine Nephrology; Internal Medicine Pulmonary Disease; Nurse Practitioner Family; Physician Assistant Medical; Registered Nurse Community Health; Student in an Organized Health Care Education/Training Program; Admitting Provider Internal Medicine Critical Care Medicine; Emergency Provider Emergency Medicine; PCP Internal Medicine; Visit Provider Student in an Organized Health Care Education/Training Program
PROC: 0DJ08ZZ Inspection of Upper Intestinal Tract, Via Natural or Artificial Opening Endoscopic (ICD-10-PCS; CPT 43235; principal; 2025-01-30 13:00)
PROC: 04L23DZ Occlusion of Gastric Artery with Intraluminal Device, Percutaneous Approach (ICD-10-PCS; principal; 2025-01-30 15:30)
PROC: 0JH63XZ Insertion of Tunneled Vascular Access Device into Chest Subcutaneous Tissue and Fascia, Percutaneous Approach (ICD-10-PCS; principal; 2025-02-23 13:00)
DX: I13.2 Hypertensive heart and chronic kidney disease with heart failure and with stage 5 chronic kidney disease, or end stage renal disease (principal); G92.8 Other toxic encephalopathy; I50.43 Acute on chronic combined systolic (congestive) and diastolic (congestive) heart failure; J96.01 Acute respiratory failure with hypoxia; J18.9 Pneumonia, unspecified organism; R57.8 Other shock; K26.0 Acute duodenal ulcer with hemorrhage; I63.81 Other cerebral infarction due to occlusion or stenosis of small artery; N18.6 End stage renal disease; N17.0 Acute kidney failure with tubular necrosis; J69.0 Pneumonitis due to inhalation of food and vomit; D62 Acute posthemorrhagic anemia; I69.351 Hemiplegia and hemiparesis following cerebral infarction affecting right dominant side; E87.0 Hyperosmolality and hypernatremia; G72.81 Critical illness myopathy; I16.0 Hypertensive urgency; E11.65 Type 2 diabetes mellitus with hyperglycemia; I25.10 Atherosclerotic heart disease of native coronary artery without angina pectoris; E87.6 Hypokalemia; Z66 Do not resuscitate; E03.9 Hypothyroidism, unspecified; I48.0 Paroxysmal atrial fibrillation; L89.152 Pressure ulcer of sacral region, stage 2; E78.5 Hyperlipidemia, unspecified; I07.1 Rheumatic tricuspid insufficiency; E11.22 Type 2 diabetes mellitus with diabetic chronic kidney disease; N25.0 Renal osteodystrophy; G47.33 Obstructive sleep apnea (adult) (pediatric); D63.1 Anemia in chronic kidney disease; Z20.822 Contact with and (suspected) exposure to COVID-19; Z95.5 Presence of coronary angioplasty implant and graft; Z79.4 Long term (current) use of insulin; Z79.890 Hormone replacement therapy; Z79.899 Other long term (current) drug therapy
CPT/HCPCS: 0241U; 36415; 36558; 37242; 70450; 70553; 71045; 71250; 74018; 76775; 80048; 80053; 80076; 80202; 81001; 82040; 82272; 82803; 82947; 83605; 83690; 83735; 83880; 84100; 84443; 84478; 84484; 85007; 85014; 85018; 85025; 85027; 85610; 85730; 86140; 86704; 86706; 86850; 86900; 86901; 86923; 87040; 87070; 87340; 87493; 90999; 92526; 92610; 93005; 93306; 94002; 94003; 94640; 94660; 94799; 95816; 97110; 97162; 99285; A9585; C1750; C1760; C1769; C1770; C1887; C1889; C1894; J0131; J0171; J0295; J0360; J0651; J0690; J1160; J1171; J1644; J1920; J1939; J1940; J2020; J2250; J2404; J2405; J2470; J2543; J2704; J2765; J2997; J3010; J3370; J3480; P9016; P9047; Q5106; Q9967

== ENCOUNTER → 2025-01-19 06:51 | Outpatient (BNV) | payer MEDICARE, OTHER, SELFPAY | PROVIDERS: Admitting Provider Internal Medicine Critical Care Medicine; Emergency Provider Emergency Medicine; PCP Internal Medicine; Visit Provider Internal Medicine | DX: R94.31 Abnormal electrocardiogram [ECG] [EKG] (principal) | CPT/HCPCS: 93010 ==

== ENCOUNTER → 2025-01-19 06:52 | Outpatient (BNV) | payer MEDICARE, OTHER, SELFPAY | PROVIDERS: Emergency Provider Emergency Medicine; Visit Provider Radiology Diagnostic Radiology | DX: J96.01 Acute respiratory failure with hypoxia (principal); R41.82 Altered mental status, unspecified; R06.02 Shortness of breath | CPT/HCPCS: 70450; 71250 ==

== ENCOUNTER 2025-01-19 09:34 | Outpatient (BNV) | payer MEDICARE, OTHER, SELFPAY | END 2025-01-24 13:10 | PROVIDERS: Admitting Provider Internal Medicine Critical Care Medicine; Emergency Provider Emergency Medicine; PCP Internal Medicine; Visit Provider Radiology Diagnostic Radiology | DX: J96.01 Acute respiratory failure with hypoxia (principal); Z93.1 Gastrostomy status | CPT/HCPCS: 71045 ==

== ENCOUNTER 2025-01-19 09:34 | Outpatient (BNV) | payer MEDICARE, OTHER, SELFPAY | END 2025-01-29 17:22 | PROVIDERS: Admitting Provider Internal Medicine Critical Care Medicine; Emergency Provider Emergency Medicine; PCP Internal Medicine; Visit Provider Radiology Vascular & Interventional Radiology | DX: R91.8 Other nonspecific abnormal finding of lung field (principal); Z99.11 Dependence on respirator [ventilator] status | CPT/HCPCS: 71045 ==

== ENCOUNTER 2025-01-19 09:34 | Outpatient (BNV) | payer MEDICARE, OTHER, SELFPAY | END 2025-02-14 14:03 | PROVIDERS: Admitting Provider Internal Medicine Critical Care Medicine; Emergency Provider Emergency Medicine; PCP Internal Medicine; Visit Provider Radiology Diagnostic Radiology | DX: Z46.59 Encounter for fitting and adjustment of other gastrointestinal appliance and device (principal) | CPT/HCPCS: 71045 ==

== ENCOUNTER 2025-01-19 09:34 | Outpatient (BNV) | payer MEDICARE, OTHER, SELFPAY | END 2025-02-06 20:55 | PROVIDERS: Admitting Provider Internal Medicine Critical Care Medicine; Emergency Provider Emergency Medicine; PCP Internal Medicine; Visit Provider Student in an Organized Health Care Education/Training Program | DX: G93.40 Encephalopathy, unspecified (principal) | CPT/HCPCS: 70450 ==

== ENCOUNTER 2025-01-19 09:34 | Outpatient (BNV) | payer MEDICARE, OTHER, SELFPAY | END 2025-01-23 16:14 | PROVIDERS: Admitting Provider Internal Medicine Critical Care Medicine; Emergency Provider Emergency Medicine; PCP Internal Medicine; Visit Provider Radiology Diagnostic Radiology | DX: N17.9 Acute kidney failure, unspecified (principal); N26.1 Atrophy of kidney (terminal); N28.1 Cyst of kidney, acquired; K82.8 Other specified diseases of gallbladder | CPT/HCPCS: 76775 ==

== ENCOUNTER 2025-01-19 09:34 | Outpatient (BNV) | payer MEDICARE, OTHER, SELFPAY | END 2025-02-04 07:52 | PROVIDERS: Admitting Provider Internal Medicine Critical Care Medicine; Emergency Provider Emergency Medicine; PCP Internal Medicine; Visit Provider Internal Medicine | DX: I48.92 Unspecified atrial flutter (principal); R94.31 Abnormal electrocardiogram [ECG] [EKG] | CPT/HCPCS: 93010 ==

== ENCOUNTER 2025-01-19 09:34 | Outpatient (BNV) | payer MEDICARE, OTHER, SELFPAY | END 2025-02-26 15:31 | PROVIDERS: Admitting Provider Internal Medicine Critical Care Medicine; Emergency Provider Emergency Medicine; PCP Internal Medicine; Visit Provider Radiology Diagnostic Radiology | DX: R41.82 Altered mental status, unspecified (principal) | CPT/HCPCS: 70450 ==

== ENCOUNTER 2025-01-19 09:34 | Outpatient (BNV) | payer MEDICARE, OTHER, SELFPAY | END 2025-02-23 16:00 | PROVIDERS: Admitting Provider Internal Medicine Critical Care Medicine; Emergency Provider Emergency Medicine; PCP Internal Medicine; Visit Provider Student in an Organized Health Care Education/Training Program | DX: N18.6 End stage renal disease (principal) | CPT/HCPCS: 36558; 76937; 77001 ==

== ENCOUNTER 2025-01-19 09:34 | Outpatient (BNV) | payer MEDICARE, OTHER, SELFPAY | END 2025-01-30 09:08 | PROVIDERS: Admitting Provider Internal Medicine Critical Care Medicine; Emergency Provider Emergency Medicine; PCP Internal Medicine; Visit Provider Radiology Diagnostic Radiology | DX: K92.2 Gastrointestinal hemorrhage, unspecified (principal); Z98.890 Other specified postprocedural states | CPT/HCPCS: 36247; 36248; 37244; 75726; 75774; 76937 ==

== ENCOUNTER 2025-01-19 09:34 | Outpatient (BNV) | payer MEDICARE, OTHER, SELFPAY | END 2025-02-07 11:50 | PROVIDERS: Admitting Provider Internal Medicine Critical Care Medicine; Emergency Provider Emergency Medicine; PCP Internal Medicine; Visit Provider Radiology Diagnostic Radiology | DX: G93.40 Encephalopathy, unspecified (principal); I63.81 Other cerebral infarction due to occlusion or stenosis of small artery; K94.23 Gastrostomy malfunction; I72.8 Aneurysm of other specified arteries; Z97.8 Presence of other specified devices | CPT/HCPCS: 70553; 74018 ==

== ENCOUNTER 2025-01-19 09:34 | Outpatient (BNV) | payer MEDICARE, OTHER, SELFPAY | END 2025-01-27 12:48 | PROVIDERS: Admitting Provider Internal Medicine Critical Care Medicine; Emergency Provider Emergency Medicine; PCP Internal Medicine; Visit Provider Radiology Vascular & Interventional Radiology | DX: R06.02 Shortness of breath (principal); Z95.828 Presence of other vascular implants and grafts | CPT/HCPCS: 71045 ==

== ENCOUNTER 2025-01-19 09:34 | Outpatient (BNV) | payer MEDICARE, OTHER, SELFPAY | END 2025-02-03 11:55 | PROVIDERS: Admitting Provider Internal Medicine Critical Care Medicine; Emergency Provider Emergency Medicine; PCP Internal Medicine; Visit Provider Radiology Diagnostic Radiology | DX: I51.7 Cardiomegaly (principal) | CPT/HCPCS: 71045 ==

== ENCOUNTER → 2025-01-19 09:34 | Outpatient (BNV) | payer MEDICARE, OTHER, SELFPAY | PROVIDERS: Admitting Provider Internal Medicine Critical Care Medicine; Emergency Provider Emergency Medicine; PCP Internal Medicine; Visit Provider Internal Medicine | DX: I50.41 Acute combined systolic (congestive) and diastolic (congestive) heart failure (principal); J96.01 Acute respiratory failure with hypoxia; I21.4 Non-ST elevation (NSTEMI) myocardial infarction | CPT/HCPCS: 99223 ==

== ENCOUNTER → 2025-01-19 09:34 | Outpatient (BNV) | payer MEDICARE, OTHER, SELFPAY | PROVIDERS: Admitting Provider Internal Medicine Critical Care Medicine; Emergency Provider Emergency Medicine; PCP Internal Medicine; Visit Provider Student in an Organized Health Care Education/Training Program | DX: T17.900A Unspecified foreign body in respiratory tract, part unspecified causing asphyxiation, initial encounter (principal); N18.6 End stage renal disease; Z99.2 Dependence on renal dialysis; K26.9 Duodenal ulcer, unspecified as acute or chronic, without hemorrhage or perforation; D64.9 Anemia, unspecified; K92.2 Gastrointestinal hemorrhage, unspecified | CPT/HCPCS: 99232 ==

== ENCOUNTER → 2025-01-19 09:34 | Outpatient (BNV) | payer MEDICARE, OTHER, SELFPAY | PROVIDERS: Admitting Provider Internal Medicine Critical Care Medicine; Emergency Provider Emergency Medicine; PCP Internal Medicine; Visit Provider Internal Medicine Pulmonary Disease | DX: G93.41 Metabolic encephalopathy (principal); F01.A0 Vascular dementia, mild, without behavioral disturbance, psychotic disturbance, mood disturbance, and anxiety; I50.41 Acute combined systolic (congestive) and diastolic (congestive) heart failure; I25.10 Atherosclerotic heart disease of native coronary artery without angina pectoris; N17.9 Acute kidney failure, unspecified; N18.9 Chronic kidney disease, unspecified; E11.9 Type 2 diabetes mellitus without complications; E03.9 Hypothyroidism, unspecified | CPT/HCPCS: 99291 ==

== ENCOUNTER → 2025-01-19 09:34 | Outpatient (BNV) | payer MEDICARE, OTHER, SELFPAY | PROVIDERS: Admitting Provider Internal Medicine Critical Care Medicine; Emergency Provider Emergency Medicine; PCP Internal Medicine; Visit Provider Internal Medicine Nephrology | DX: N17.9 Acute kidney failure, unspecified (principal); N18.9 Chronic kidney disease, unspecified; I50.41 Acute combined systolic (congestive) and diastolic (congestive) heart failure | CPT/HCPCS: 99223; 99232 ==

== ENCOUNTER → 2025-01-19 09:34 | Outpatient (BNV) | payer MEDICARE, OTHER, SELFPAY | PROVIDERS: Admitting Provider Internal Medicine Critical Care Medicine; Emergency Provider Emergency Medicine; PCP Internal Medicine; Visit Provider Psychiatry & Neurology Neurology | DX: G93.40 Encephalopathy, unspecified (principal) | CPT/HCPCS: 99222 ==

== ENCOUNTER → 2025-01-19 09:34 | Outpatient (BNV) | payer MEDICARE, OTHER, SELFPAY | PROVIDERS: Admitting Provider Internal Medicine Critical Care Medicine; Emergency Provider Emergency Medicine; PCP Internal Medicine; Visit Provider Internal Medicine | DX: D64.9 Anemia, unspecified (principal); I21.4 Non-ST elevation (NSTEMI) myocardial infarction; J96.01 Acute respiratory failure with hypoxia; N18.9 Chronic kidney disease, unspecified; K92.2 Gastrointestinal hemorrhage, unspecified; K26.0 Acute duodenal ulcer with hemorrhage | CPT/HCPCS: 43236; 99223; 99233 ==

== ENCOUNTER → 2025-01-19 09:34 | Outpatient (BNV) | payer MEDICARE, OTHER, SELFPAY | PROVIDERS: Admitting Provider Internal Medicine Critical Care Medicine; Emergency Provider Emergency Medicine; PCP Internal Medicine; Visit Provider Surgery | DX: J96.90 Respiratory failure, unspecified, unspecified whether with hypoxia or hypercapnia (principal); G93.41 Metabolic encephalopathy; I63.9 Cerebral infarction, unspecified | CPT/HCPCS: 99222 ==

== ENCOUNTER → 2025-01-19 09:34 | Outpatient (BNV) | payer MEDICARE, OTHER, SELFPAY | PROVIDERS: Admitting Provider Internal Medicine Critical Care Medicine; Emergency Provider Emergency Medicine; PCP Internal Medicine; Visit Provider Internal Medicine Critical Care Medicine | DX: I50.41 Acute combined systolic (congestive) and diastolic (congestive) heart failure (principal); J96.01 Acute respiratory failure with hypoxia; J81.0 Acute pulmonary edema | CPT/HCPCS: 99223; 99291 ==

== ENCOUNTER 2025-03-22 05:55 | Outpatient (REF) | payer MEDICARE, SELFPAY ==
--- OUTSIDE RECORDS SUMMARY | 2025-03-22 05:57 | XMS_ITS | Encounter Summary ---
Author Organization [facility] Address [address] [place] [address] Care Team Providers [employer] Driver Name Role Phone Anil Bettencourt MD Primary Care Provider [phone] Encounter Details Date Type Department Care Team ([facility] Contact Info) Description 11/20/[address] [facility] - Main Lab [address] [place] [address] Horace Solomon MD [address] [place] [id number] Encounter for other general examination Social History [...] for your loved ones. For example, child study team director or elderly care for an older adult? [...] on file documented as of this encounter Procedures Procedure [...] pcg LAB HEMETOLOGY METHOD 11/20/2024 11:01 AM [facility] MCHC 33.1 32.0 - 37.0 g/dL LAB HEMETOLOGY METHOD 11/20/2024 11:01 AM [facility] RDW 13.2 11.0 - 15.0 % LAB HEMETOLOGY METHOD 11/20/2024 11:01 AM [facility] Platelets 335 130 - 400 K/mcL LAB HEMETOLOGY METHOD 11/20/2024 11:01 AM [facility] MPV 10.3 7.0 - 11.0 FL LAB HEMETOLOGY METHOD 11/20/2024 11:01 AM EST [facility] NRBC 0.0 <1.0 % LAB HEMETOLOGY METHOD 11/20/2024 11:01 AM EST [facility] NRBC Absolute 0.00 <0.10 K/mcL LAB HEMETOLOGY METHOD 11/20/2024 11:01 AM EST [facility] Blood Venous blood specimen / Unknown Venipuncture / Unknown 11/20/2024 6:45 AM EST 11/20/2024 8:25 AM EST us Horace Solomon MD LAB BLOOD ORDERABLES Final Res ult [facility] [address] [place] [address], [place] [phone] * (ABNORMAL) Basic metabolic panel (11/20/2024 6:45 AM EST) Sodium 137 133 - 145 mmol/L LAB CHEMISTRY METHOD 11/20/2024 11:21 AM [facility] Potassium 3.7 3.5 - 5.5 mmol/L LAB CHEMISTRY METHOD 11/20/2024 11:21 AM [facility] Chloride 101 96 - 110 mmol/L [...] mg/dL LAB CHEMISTRY METHOD 11/20/2024 11:21 AM EST [facility] eGFR 12(L) >=60 mL/min/1. 73m2 LAB CHEMISTRY METHOD 11/20/2024 11:21 AM EST [facility] Comment:Calculation based on the??Chronic Kidney Disease Epidemiology Collaboration (CKD-EPI) equation refit??without adjustment for race. BUN/Creatinine Ratio 18.5 LAB CHEMISTRY METHOD 11/20/2024 11:21 AM EST [facility] Calcium 8.6 8.5 - 10.5 mg/dL LAB CHEMISTRY METHOD 11/20/2024 11:21 AM [facility] Blood Venous blood specimen / Unknown Venipuncture / Unknown 11/20/2024 6:45 AM EST 11/20/2024 8:25 AM EST us Horace Solomon MD LAB BLOOD ORDERABLES Final Res ult [facility] [address] [place] [address], documented in this encounter Visit Diagnoses Diagnosis Encounter for other general examination documented in this encounter Additional Health Concerns Infection Onset Date Last Indicated Resolved Time Respiratory Rule-Out 11/26/2024 11/26/2024 024 6:03 PM EST Gastrointestinal Rule-Out 11/30/2024 11/30/2024 7:06 PM EST Assessment Noted Time PHQ-9 Depression Total Score: 0 10/30/20 24 10:57 PM EST documented as of this encounter Care Teams [employer] Driver Relationship Specialty Start Date End Date Anil Bettencourt MD [address] [place] [id number] PCP - General 08/02/01 documented as of this encounter
--- OUTSIDE RECORDS SUMMARY | 2025-03-22 05:57 | XMS_ITS | Encounter Summary ---
Author Organization [facility] [place] [address] Care Team Providers Care Crown Wheel Assembler Name Role Phone Anil Bettencourt MD Primary Care Provider [phone] Encounter Details Date Type Department Care Team (Late st Contact Info) Description 01/04/2025 Lab Requisition [facility] - Main Lab [address] [facility] [place] [address] Social History Tobacco Use Types [...] loved ones. For example, child and adolescent psychologist or elderly care for an older adult? [...] documented as of this encounter Care Teams Crown Wheel Assembler Relationship Specialty Start Date End Date Anil Bettencourt MD [address] [place] [address] PCP - General 08/02/01 documented as of this encounter
--- OUTSIDE RECORDS SUMMARY | 2025-03-22 05:57 | XMS_ITS | Encounter Summary ---
Author Organization [facility] Address [address] [place] [address] Care Team Providers Care Hydro Plant Technician Name Role Phone Anil Bettencourt MD Primary Care Provider [phone] Encounter Details Date Type Department Care Team (Latest Contact Info) Description 01/06/2025 Lab Requisition [facility] - Main Lab [address] [place] [address] Tyree Amador MD [address] [place] [phone] Type 2 diabetes mellitus with hyperglycemia (CMS/HCC V24, CMS/HCC V28); Chronic kidney disease, unspecified Social History Tobacco [...] for your loved ones. For example, children's choir director or elderly care for an older [...] EST Type 2 diabetes mellitus with hyperglycemia ([facility]/HCC) Chronic kidney disease, unspecified BASIC METABOLIC PANEL Routine 01/08/2025 6:08 AM EST Type 2 diabetes mellitus with hyperglycemia ([facility]/HCC) Chronic kidney disease, unspecified documented in this encounter Results * (ABNORMAL) Complete blood count (01/08/2025 6:09 AM EST) WBC 6.4 4.8 - 10.8 K/mcL LAB HEMETOLOGY METHOD 01/08/2025 2:34 PM [facility] LAB RBC 3.00(L) 3.80 - 4.80 M/mcL LAB HEMETOLOGY METHOD 01/08/2025 2:34 PM [facility] LAB Hemoglobin 8.8(L) 11.5 - 16.0 g/dL LAB HEMETOLOGY METHOD 01/08/2025 2:34 PM [facility] LAB Hematocrit 27.9(L) 35.0 - 47.0 % LAB HEMETOLOGY METHOD 01/08/2025 2:34 PM [facility] LAB MCV 94.6 79.0 - 98.0 FL LAB HEMETOLOGY METHOD 01/08/2025 2:34 PM [facility] LAB MCH 29.8 27.0 - 32.0 pcg LAB HEMETOLOGY METHOD 01/08/2025 2:34 PM [facility] LAB MCHC 31.5(L) 32.0 - 37.0 g/dL LAB HEMETOLOGY METHOD 01/08/2025 2:34 PM [facility] LAB RDW 14.0 11.0 - 15.0 % LAB HEMETOLOGY METHOD 01/08/2025 2:34 PM [facility] LAB Platelets 253 130 - 400 K/mcL LAB HEMETOLOGY METHOD 01/08/2025 2:34 PM EST [facility] LAB MPV 11.0 7.0 - 11.0 FL LAB HEMETOLOGY METHOD 01/08/2025 2:34 PM EST [facility] LAB NRBC 0.0 <1.0 % LAB HEMETOLOGY METHOD 01/08/2025 2:34 PM EST [facility] LAB NRBC Absolute 0.00 <0.10 K/mcL LAB HEMETOLOGY METHOD 01/08/2025 2:34 PM [facility] LAB Blood Venous blood specimen / Unknown Venipuncture / Unknown 01/08/2025 6:09 AM EST 01/08/2025 1:30 PM EST Tyree Amador MD LAB BLOOD ORDERABLES Final Resu lt [facility] LAB [address] [place] [address], [place] [phone] * (ABNORMAL) Basic metabolic panel (01/08/2025 6:08 AM EST) Sodium 142 133 - 145 mmol/L LAB CHEMISTRY METHOD 01/08/2025 4:38 PM [facility] LAB Potassium 3.7 3.5 - 5.5 mmol/L LAB CHEMISTRY METHOD 01/08/2025 4:38 PM [facility] LAB Chloride 108 96 - 110 mmol/L LAB CHEMISTRY METHOD 01/08/2025 4:38 PM [facility] LAB CO2 23 21 - 32 mmol/L LAB CHEMISTRY METHOD 01/08/2025 4:38 PM [facility] LAB Anion Gap 11 3 - 11 LAB CHEMISTRY METHOD 01/08/2025 4:38 PM [facility] LAB Glucose 93 70 - 100 mg/dL LAB CHEMISTRY METHOD 01/08/2025 4:38 PM EST [facility] LAB BUN 41(H) 5 - 25 mg/dL LAB CHEMISTRY METHOD 01/08/2025 4:38 PM [facility] LAB Creatinine 2.58(H) 0.50 - 1.10 mg/dL LAB CHEMISTRY METHOD 01/08/2025 4:38 PM [facility] LAB eGFR 18(L) >=60 mL/min/1. 73m2 LAB CHEMISTRY METHOD 01/08/2025 4:38 PM [facility] LAB Comment:Calculation based on the??Chronic Kidney Disease Epidemiology Collaboration (CKD-EPI) equation refit??without adjustment for race. BUN/Creatinine Ratio 15.9 LAB CHEMISTRY METHOD 01/08/2025 4:38 PM [facility] LAB Calcium 8.6 8.5 - 10.5 mg/dL LAB CHEMISTRY METHOD 01/08/2025 4:38 PM [facility] LAB Blood Venous blood specimen / Unknown Venipuncture / Unknown 01/08/2025 6:08 AM EST 01/08/2025 1:32 PM EST us Tyere Amador MD LAB BLOOD ORDERABLES Final Resu lt [facility] LAB [address] [place] [address], documented in this encounter Visit Diagnoses Diagnosis Type 2 diabetes mellitus with hyperglycemia (CMS/HCC V24, CMS/HCC V28) Chronic kidney disease, unspecified documented in this encounter Additional Health Concerns Assessment Noted Time PHQ-9 Depression Total Score: 0 10/30/20 24 10:57 PM EST documented as of this encounter Care Teams Hydro Plant Technician Relationship Specialty Start Date End Date Anil Bettencourt MD [address] [place] [address] PCP - General 08/02/01 documented as of this encounter
--- OUTSIDE RECORDS SUMMARY | 2025-03-22 05:57 | XMS_ITS | Encounter Summary ---
Author Organization [facility] Address [address] [place] [address] Care Team Providers Care Special Events Planner Name Role Phone Anil Bettencourt MD Primary Care Provider [phone] Encounter Details Date Type Department Care Team ([facility] Contact Info) Description 11/18/2024 Lab Requisition [facility] - Main Lab [address] [facility] [address] [place] [address] Horace Solomon MD [address] [place] [address] Encounter for other general examination Social History [...] your loved ones. For example, child welfare assistant or elderly care for an older [...] CBC auto differential (11/18/2024 6:02 AM EST) [facility] WBC 7.0 4.8 - 10.8 K/mcL LAB HEMETOLOGY METHOD 11/18/2024 10:18 AM [facility] LAB RBC 3.00(L) 3.80 - 4.80 M/mcL LAB HEMETOLOGY METHOD 11/18/2024 10:18 AM [facility] LAB Hemoglobin 8.8(L) 11.5 - 16.0 g/dL LAB HEMETOLOGY METHOD 11/18/2024 10:18 AM [facility] LAB Hematocrit 26.8(L) 35.0 - 47.0 % LAB HEMETOLOGY METHOD 11/18/2024 10:18 AM [facility] LAB MCV 90.8 79.0 - 98.0 FL LAB HEMETOLOGY METHOD 11/18/2024 10:18 AM [facility] LAB MCH 29.8 27.0 - 32.0 pcg LAB HEMETOLOGY METHOD 11/18/2024 10:18 AM [facility] LAB MCHC 32.8 32.0 - 37.0 g/dL LAB HEMETOLOGY METHOD 11/18/2024 10:18 AM [facility] LAB RDW 13.2 11.0 - 15.0 % LAB HEMETOLOGY METHOD 11/18/2024 10:18 AM [facility] LAB Platelets 352 130 - 400 K/mcL LAB HEMETOLOGY METHOD 11/18/2024 10:18 AM [facility] LAB MPV 10.5 7.0 - 11.0 FL LAB HEMETOLOGY METHOD 11/18/2024 10:18 AM [facility] LAB NRBC 0.0 <1.0 % LAB HEMETOLOGY METHOD 11/18/2024 10:18 AM [facility] LAB NRBC Absolute 0.00 <0.10 K/mcL LAB HEMETOLOGY METHOD 11/18/2024 10:18 AM [facility] LAB Neutrophils Relative 74.3 % LAB HEMETOLOGY METHOD 11/18/2024 10:18 AM [facility] LAB Lymphocytes Relative 9.5 % LAB HEMETOLOGY METHOD 11/18/2024 10:18 AM [facility] Monocytes Relative 11.1 % LAB HEMETOLOGY METHOD 11/18/2024 10:18 AM [facility] LAB Eosinophils Relative 2.7 % LAB HEMETOLOGY METHOD 11/18/2024 10:18 AM [facility] Basophils Relative 1.0 % LAB HEMETOLOGY METHOD 11/18/2024 10:18 AM [facility] LAB Immature Granulocytes Relative 1.4 % LAB HEMETOLOGY METHOD 11/18/2024 10:18 AM [facility] LAB Neutrophils Absolute 5.23 1.50 - 7.00 K/mcL LAB HEMETOLOGY METHOD 11/18/2024 10:18 AM [facility] LAB Lymphocytes Absolute 0.67(L) 1.00 - 5.00 K/mcL LAB HEMETOLOGY METHOD 11/18/2024 10:18 AM EST [facility] LAB Monocytes Absolute 0.78 0.20 - 1.00 K/[facility] LAB HEMETOLOGY METHOD 11/18/2024 10:18 AM EST [facility] LAB Eosinophils Absolute 0.19 0.00 - 0.50 K/[facility] LAB HEMETOLOGY METHOD 11/18/2024 10:18 AM EST [facility] LAB Basophils Absolute 0.07 0.00 - 0.20 K/[facility] LAB HEMETOLOGY METHOD 11/18/2024 10:18 AM EST [facility] LAB Immature Granulocytes Absolute 0.10(H) 0.00 - 0.03 K/[facility] LAB HEMETOLOGY METHOD 11/18/2024 10:18 AM EST [facility] LAB Blood Venous blood specimen / Unknown Venipuncture / Unknown 11/18/2024 6:02 AM EST 11/18/2024 9:16 AM EST Horace Solomon MD LAB BLOOD ORDERABLES Final Res ult [facility] LAB [address] [place] [address], [place] [phone] * Magnesium (11/18/2024 6:02 AM EST) Magnesium 2.0 1.9 - 2.6 mg/dL LAB CHEMISTRY METHOD 11/18/2024 10:40 AM EST [facility] LAB Blood Venous blood specimen / Unknown Venipuncture / Unknown 11/18/2024 6:02 AM EST 11/18/2024 9:16 AM EST us Horace Solomon MD LAB BLOOD ORDERABLES Final Res ult [facility] LAB [address] [place] [address], [place] [phone] * Folate (11/18/2024 6:02 AM EST) Pathologist [facility] Folate 7.3 2.8 - 17.0 ng/ml LAB CHEMISTRY METHOD 11/18/2024 11:02 AM EST [facility] LAB Blood Venous blood specimen / Unknown Venipuncture / Unknown 11/18/2024 6:02 AM EST 11/18/2024 9:16 AM EST Horace Solomon MD LAB BLOOD ORDERABLES Final Res ult [facility] [address] [place] [address], [place] [phone] * (ABNORMAL) Vitamin B12 (11/18/2024 6:02 AM EST) [facility] Vitamin B-12 951(H) 250 - 900 pcg/mL LAB CHEMISTRY METHOD 11/18/2024 11:02 AM EST [facility] LAB Blood Venous blood specimen / Unknown Venipuncture / Unknown 11/18/2024 6:02 AM EST 11/18/2024 9:16 AM EST Horace Solomon MD LAB BLOOD ORDERABLES Final Res ult [facility] [address] [place] [address], [place] [phone] * (ABNORMAL) Basic metabolic panel (11/18/2024 6:02 AM EST) [facility] Sodium 136 133 - 145 mmol/L LAB CHEMISTRY METHOD 11/18/2024 10:40 AM EST [facility] LAB Potassium 3.8 3.5 - 5.5 mmol/L LAB CHEMISTRY METHOD 11/18/2024 10:40 AM EST [facility] LAB Chloride 102 96 - 110 mmol/L LAB CHEMISTRY METHOD 11/18/2024 10:40 AM EST [facility] LAB CO2 27 21 - 32 mmol/L LAB CHEMISTRY METHOD 11/18/2024 10:40 AM [facility] LAB Anion Gap 7 3 - 11 LAB CHEMISTRY METHOD 11/18/2024 10:40 AM [facility] LAB Glucose 102(H) 70 - 100 mg/dL LAB CHEMISTRY METHOD 11/18/2024 10:40 AM [facility] LAB BUN 64(H) 5 - 25 mg/dL LAB CHEMISTRY METHOD 11/18/2024 10:40 AM [facility] LAB Creatinine 3.36(H) 0.50 - 1.10 mg/dL LAB CHEMISTRY METHOD 11/18/2024 10:40 AM [facility] LAB eGFR 13(L) >=60 mL/min/1. 73m2 LAB CHEMISTRY METHOD 11/18/2024 10:40 AM [facility] LAB Comment:Calculation based on the??Chronic Kidney Disease Epidemiology Collaboration (CKD-EPI) equation refit??without adjustment for race. BUN/Creatinine Ratio 19.0 LAB CHEMISTRY METHOD 11/18/2024 10:40 AM [facility] LAB Calcium 9.0 8.5 - 10.5 mg/dL LAB CHEMISTRY METHOD 11/18/2024 10:40 AM [facility] LAB Blood Venous blood specimen / Unknown Venipuncture / Unknown 11/18/2024 6:02 AM EST 11/18/2024 9:16 AM EST us Horace Solomon MD LAB BLOOD ORDERABLES Final Res ult [facility] LAB [address] [place] [address], documented in this encounter Visit Diagnoses Diagnosis Encounter for other general examination documented in this encounter Additional Health Concerns Infection Onset Date Last Indicated Resolved Time Respiratory Rule-Out 11/26/2024 11/26/2024 024 6:03 PM EST Gastrointestinal Rule-Out 11/30/2024 11/30/2024 7:06 PM EST Assessment Noted Time PHQ-9 Depression Total Score: 0 10/30/20 10:57 PM EST documented as of this encounter Care Teams Special Events Planner Relationship Specialty Start Date End Date Anil Bettencourt MD [address] [place] [address] PCP - General 08/02/01 documented as of this encounter
[2025-03-22 05:58] LABS: MANUAL DIFF FLAG NO
--- OUTSIDE RECORDS SUMMARY | 2025-03-22 05:58 | XMS_ITS | Encounter Summary ---
Author Organization [facility] Address [address] [place] [address] Care Team Providers Care Signals Analyst Name Role Phone Anil Bettencourt MD Primary Care Provider [phone] Encounter Details Date Type Department Care Team ([facility] Contact Info) Description 11/24/2024 Lab Requisition [facility] - Main Lab [address] [place] [address] Horace Solomon MD [address] [place] [address] Encounter for other general examination Social History [...] your loved ones. For example, child life therapist or elderly care for an older [...] K/mcL LAB HEMETOLOGY METHOD 11/24/2024 11:00 AM [facility] LAB RBC 2.60(L) 3.80 - 4.80 M/mcL LAB HEMETOLOGY METHOD 11/24/2024 11:00 AM [facility] LAB Hemoglobin 7.9(L) 11.5 - 16.0 g/dL LAB HEMETOLOGY METHOD 11/24/2024 11:00 AM [facility] LAB Hematocrit 24.4(L) 35.0 - 47.0 % LAB HEMETOLOGY METHOD 11/24/2024 11:00 AM [facility] LAB MCV 92.8 79.0 - 98.0 FL LAB HEMETOLOGY METHOD 11/24/2024 11:00 AM [facility] LAB MCH 30.0 27.0 - 32.0 pcg LAB HEMETOLOGY METHOD 11/24/2024 11:00 AM [facility] LAB MCHC 32.4 32.0 - 37.0 g/dL LAB HEMETOLOGY METHOD 11/24/2024 11:00 AM [facility] LAB RDW 13.5 11.0 - 15.0 % LAB HEMETOLOGY METHOD 11/24/2024 11:00 AM [facility] LAB Platelets 315 130 - 400 K/mcL LAB HEMETOLOGY METHOD 11/24/2024 11:00 AM [facility] LAB MPV 10.5 7.0 - 11.0 FL LAB HEMETOLOGY METHOD 11/24/2024 11:00 AM EST [facility] NRBC 0.0 <1.0 % LAB HEMETOLOGY METHOD 11/24/2024 11:00 AM EST [facility] NRBC Absolute 0.00 <0.10 K/mcL LAB HEMETOLOGY METHOD 11/24/2024 11:00 AM EST [facility] Blood Venous blood specimen / Unknown Venipuncture / Unknown 11/24/2024 5:55 AM EST 11/24/2024 8:56 AM EST us Horace Solomon MD LAB BLOOD ORDERABLES Final Res ult [facility] [address] [place] [address], [place] [phone] * (ABNORMAL) Basic metabolic panel (11/24/2024 5:55 AM EST) Sodium 139 133 - 145 mmol/L LAB CHEMISTRY METHOD 11/24/2024 10:25 AM [facility] LAB Potassium 3.5 3.5 - 5.5 mmol/L LAB CHEMISTRY METHOD 11/24/2024 10:25 AM [facility] LAB Chloride 106 96 - 110 mmol/L LAB CHEMISTRY METHOD 11/24/2024 10:25 AM [facility] LAB CO2 24 21 - 32 mmol/L LAB CHEMISTRY METHOD 11/24/2024 10:25 AM [facility] LAB Anion Gap 9 3 - 11 LAB CHEMISTRY METHOD 11/24/2024 10:25 AM [facility] LAB Glucose 100 70 - 100 mg/dL LAB CHEMISTRY METHOD 11/24/2024 10:25 AM [facility] BUN 66(H) 5 - 25 mg/dL LAB CHEMISTRY METHOD 11/24/2024 10:25 AM [facility] LAB Creatinine 3.30(H) 0.50 - 1.10 mg/dL LAB CHEMISTRY METHOD 11/24/2024 10:25 AM [facility] LAB eGFR 14(L) >=60 mL/min/1. 73m2 LAB CHEMISTRY METHOD 11/24/2024 10:25 AM EST [facility] Comment:Calculation based on the??Chronic Kidney Disease Epidemiology Collaboration (CKD-EPI) equation refit??without adjustment for race. BUN/Creatinine Ratio 20.0 LAB CHEMISTRY METHOD 11/24/2024 10:25 AM EST [facility] Calcium 8.6 8.5 - 10.5 mg/dL LAB CHEMISTRY METHOD 11/24/2024 10:25 AM [facility] LAB Blood Venous blood specimen / Unknown Venipuncture / Unknown 11/24/2024 5:55 AM EST 11/24/2024 8:56 AM EST us Horace Solomon MD LAB BLOOD ORDERABLES Final Res ult [facility] [address] [place] [address], documented in this encounter Visit Diagnoses Diagnosis Encounter for other general examination documented in this encounter Additional Health Concerns Infection Onset Date Last Indicated Resolved Time Respiratory Rule-Out 11/26/2024 11/26/2024 024 6:03 PM EST Gastrointestinal Rule-Out 11/30/2024 11/30/2024 7:06 PM EST Assessment Noted Time PHQ-9 Depression Total Score: 0 10/30/20 24 10:57 PM EST documented as of this encounter Care Teams Signals Analyst Relationship Specialty Start Date End Date Anil Bettencourt MD [address] [place] [id number] PCP - General 08/02/01 documented as of this encounter
--- OUTSIDE RECORDS SUMMARY | 2025-03-22 05:58 | XMS_ITS | Encounter Summary ---
Author Organization [facility] Address [address] [place] [address] Care Team Providers Care Ems Helicopter Pilot Name Role Phone Anil Bettencourt MD Primary Care Provider [phone] Encounter Details Date Type Department Care Team ([facility] Contact Info) Description 11/15/2024 Lab Requisition [facility] - Main Lab [address] [place] [address] Horace Solomon MD [address] [place] [address] Encounter for other general examination Social History [...] your loved ones. For example, child development assistant or elderly care for an older [...] LAB CHEMISTRY METHOD 11/15/2024 11:[address] [facility] Blood Venous blood specimen / Unknown Venipuncture / Unknown 11/15/2024 5:15 AM EST 11/15/2024 9:57 AM EST us Horace Solomon MD LAB BLOOD ORDERABLES Final Res ult [facility] [address] [place] [address], documented in this encounter Visit Diagnoses Diagnosis Encounter for other general examination documented in this encounter Additional Health Concerns Infection Onset Date Last Indicated Resolved Time Respiratory Rule-Out 11/26/2024 11/26/2024 024 6:03 PM EST Gastrointestinal Rule-Out 11/30/2024 11/30/2024 7:06 PM EST Assessment Noted Time PHQ-9 Depression Total Score: 0 10/30/20 24 10:57 PM EST documented as of this encounter Care Teams Ems Helicopter Pilot Relationship Specialty Start Date End Date Anil Bettencourt MD [address] [place] [address] PCP - General 08/02/01 documented as of this encounter
--- OUTSIDE RECORDS SUMMARY | 2025-03-22 05:58 | XMS_ITS | Encounter Summary ---
Author Organization [facility] Address [address] [place] [address] Care Team Providers Care Corporate Executive Chef Name Role Phone Anil Bettencourt MD Primary Care Provider [phone] Encounter Details Date Type Department Care Team (Latest Contact Info) Description 01/17/2025 Lab Requisition [facility] - Main Lab [address] [place] [address] Tyree Amador MD [address] [place] [phone] Type 2 diabetes mellitus with hyperglycemia [...] your loved ones. For example, child care team lead or elderly care for an older adult? [...] Type 2 diabetes mellitus with hyperglycemia ([facility]/HCC) Chronic kidney disease, unspecified BASIC METABOLIC PANEL Routine 01/18/2025 5:08 AM EST Type 2 diabetes mellitus with hyperglycemia ([facility]/HCC) Chronic kidney disease, unspecified documented in this encounter Results * (ABNORMAL) Complete blood count (01/18/2025 6:08 AM EST) WBC 9.8 4.8 - 10.8 K/mcL LAB HEMETOLOGY METHOD 01/18/2025 9:41 AM [facility] LAB RBC 2.70(L) 3.80 - 4.80 M/mcL LAB HEMETOLOGY METHOD 01/18/2025 9:41 AM [facility] Hemoglobin 8.2(L) 11.5 - 16.0 g/dL LAB HEMETOLOGY METHOD 01/18/2025 9:41 AM [facility] LAB Hematocrit 26.2(L) 35.0 - 47.0 % LAB HEMETOLOGY METHOD 01/18/2025 9:41 AM [facility] LAB MCV 96.0 79.0 - 98.0 FL LAB HEMETOLOGY METHOD 01/18/2025 9:41 AM [facility] LAB MCH 30.0 27.0 - 32.0 pcg LAB HEMETOLOGY METHOD 01/18/2025 9:41 AM [facility] LAB MCHC 31.3(L) 32.0 - 37.0 g/dL LAB HEMETOLOGY METHOD 01/18/2025 9:41 AM [facility] RDW 14.3 11.0 - 15.0 % LAB HEMETOLOGY METHOD 01/18/2025 9:41 AM [facility] LAB Platelets 207 130 - 400 K/mcL LAB HEMETOLOGY METHOD 01/18/2025 9:41 AM EST [facility] MPV 11.1(H) 7.0 - 11.0 FL LAB HEMETOLOGY METHOD 01/18/2025 9:41 AM EST [facility] NRBC 0.0 <1.0 % LAB HEMETOLOGY METHOD 01/18/2025 9:41 AM EST [facility] NRBC Absolute 0.00 <0.10 K/mcL LAB HEMETOLOGY METHOD 01/18/2025 9:41 AM [facility] LAB Blood Venous blood specimen / Unknown 01/18/2025 6:08 AM EST 01/18/2025 9:21 AM EST us Tyree Amador MD LAB BLOOD ORDERABLES Final Resu lt [facility] [address] [place] [address], [place] [phone] * (ABNORMAL) Basic metabolic panel (01/18/2025 5:08 AM EST) Sodium 140 133 - 145 mmol/L LAB CHEMISTRY METHOD 01/18/2025 9:50 AM [facility] Potassium 3.6 3.5 - 5.5 mmol/L LAB CHEMISTRY METHOD 01/18/2025 9:50 AM [facility] Chloride 106 96 - 110 mmol/L LAB CHEMISTRY METHOD 01/18/2025 9:50 AM [facility] CO2 24 21 - 32 mmol/L LAB CHEMISTRY METHOD 01/18/2025 9:50 AM [facility] Anion Gap 10 3 - 11 LAB CHEMISTRY METHOD 01/18/2025 9:50 AM [facility] Glucose 122(H) 70 - 100 mg/dL LAB CHEMISTRY METHOD 01/18/2025 9:50 AM EST [facility] BUN 43(H) 5 - 25 mg/dL LAB CHEMISTRY METHOD 01/18/2025 9:50 AM [facility] Creatinine 2.82(H) 0.50 - 1.10 mg/dL LAB CHEMISTRY METHOD 01/18/2025 9:50 AM [facility] eGFR 17(L) >=60 mL/min/1. 73m2 LAB CHEMISTRY METHOD 01/18/2025 9:50 AM [facility] LAB Comment:Calculation based on the??Chronic Kidney Disease Epidemiology Collaboration (CKD-EPI) equation refit??without adjustment for race. BUN/Creatinine Ratio 15.2 LAB CHEMISTRY METHOD 01/18/2025 9:50 AM [facility] Calcium 8.3(L) 8.5 - 10.5 mg/dL LAB CHEMISTRY METHOD 01/18/2025 9:50 AM [facility] Blood Venous blood specimen / Unknown 01/18/2025 5:08 AM EST 01/18/2025 9:20 AM EST us Tyree Amador MD LAB BLOOD ORDERABLES Final Resu lt [facility] [address] [place] [address], documented in this encounter Visit Diagnoses Diagnosis Type 2 diabetes mellitus with hyperglycemia (CMS/HCC V24, CMS/HCC V28) Chronic kidney disease, unspecified documented in this encounter Additional Health Concerns Assessment Noted Time PHQ-9 Depression Total Score: 0 10/30/20 24 10:57 PM EST documented as of this encounter Care Teams Corporate Executive Chef Relationship Specialty Start Date End Date Anil Bettencourt MD [address] [place] [address] PCP - General 08/02/01 documented as of this encounter
--- OUTSIDE RECORDS SUMMARY | 2025-03-22 05:58 | XMS_ITS | Encounter Summary ---
Author Organization [facility] Address [address] [place] [address] Care Team Providers Care Computational Linguist Name Role Phone Anil Bettencourt MD Primary Care Provider [phone] Encounter Details Date Type Department Care Team (Latest Contact Info) Description 01/20/2025 Lab Requisition [facility] - Main Lab [address] [place] [address] Tyree Amador MD [address] [place] [address] Chronic kidney disease, unspecified; Type 2 diabetes mellitus with hyperglycemia (CMS/HCC V24, CMS/HCC V28) Social History Tobacco Use Types Packs/Day Years [...] care for your loved ones. For example, housekeeper child care or elderly care for an older [...] as of this encounter Visit Diagnoses Diagnosis Chronic kidney disease, unspecified Type 2 diabetes mellitus with hyperglycemia ([facility] V24, [facility] V28) documented in this encounter Additional Health Concerns Assessment Noted Time PHQ-9 Depression Total Score: 0 10/30/20 10:57 PM EST documented as of this encounter Care Teams Computational Linguist Relationship Specialty Start Date End Date Anil Bettencourt MD [address] [place] [address] PCP - General 08/02/01 documented as of this encounter
--- OUTSIDE RECORDS SUMMARY | 2025-03-22 05:58 | XMS_ITS | Encounter Summary ---
Author Organization [facility] Address [address] [place] [address] Care Team Providers Care Epoxy Specialist Name Role Phone Anil Bettencourt MD Primary Care Provider [phone] Encounter Details Date Type Department Care Team ([facility] Contact Info) Description 11/26/2024 Lab Requisition [facility] - Main Lab [address] [place] [address] Horace Solomon MD [address] [place] [address] Encounter for other general examination Social History [...] for your loved ones. For example, children's attendant or elderly care for an older [...] Detected LAB MICROBIOLOGY METHOD 11/26/2024 6:03 PM [facility] Influenza A PCR Not Detected Not Detected LAB MICROBIOLOGY METHOD 11/26/2024 6:03 PM [facility] Influenza B PCR Not Detected Not Detected LAB MICROBIOLOGY METHOD 11/26/2024 6:03 PM [facility] Coronavirus 229E Not Detected Not Detected LAB MICROBIOLOGY METHOD 11/26/2024 6:03 PM [facility] Coronavirus HKU1 Not Detected Not Detected LAB MICROBIOLOGY METHOD 11/26/2024 6:03 PM [facility] Coronavirus OC43 Not Detected Not Detected LAB MICROBIOLOGY METHOD 11/26/2024 6:03 PM [facility] Coronavirus NL63 Not Detected Not Detected LAB MICROBIOLOGY METHOD 11/26/2024 6:03 PM [facility] Parainfluenza Virus 1 Not Detected Not Detected LAB MICROBIOLOGY METHOD 11/26/2024 6:03 PM [facility] Parainfluenza Virus 2 Not Detected Not Detected LAB MICROBIOLOGY METHOD 11/26/2024 6:03 PM [facility] Parainfluenza Virus 3 Not Detected Not Detected LAB MICROBIOLOGY METHOD 11/26/2024 6:03 PM [facility] Parainfluenza Virus 4 Not Detected Not Detected LAB MICROBIOLOGY METHOD 11/26/2024 6:03 PM [facility] RSV PCR Not Detected Not Detected LAB MICROBIOLOGY METHOD 11/26/2024 6:03 PM [facility] Human Metapneumovirus A and B Not Detected Not Detected LAB MICROBIOLOGY METHOD 11/26/2024 6:03 PM EST [facility] Rhinovirus/Entero virus Not Detected Not Detected LAB MICROBIOLOGY METHOD 11/26/2024 6:03 PM EST [facility] Bordetella pertussis Not Detected Not Detected LAB MICROBIOLOGY METHOD 11/26/2024 6:03 PM EST [facility] Bordetella parapertussis Not Detected Not Detected LAB MICROBIOLOGY METHOD 11/26/2024 6:03 PM EST [facility] Mycoplasma pneumo by PCR Not Detected Not Detected LAB MICROBIOLOGY METHOD 11/26/2024 6:03 PM EST [facility] Chlamydia pneumoniae Not Detected Not Detected LAB MICROBIOLOGY METHOD 11/26/2024 6:03 PM [facility] SARS COV-2 Not Detected Not Detected LAB MICROBIOLOGY METHOD 11/26/2024 6:03 PM [facility] Swab 11/26/2024 12:3 0 PM EST 11/26/2024 1:41 PM EST [facility] - 11/26/2024 6:03 PM EST Testing was performed using the [employer] Respiratory Pathogen PCR Assay. All results must [...] MICROBIOLOGY - GENERAL ORD ERABLES Final Result [facility] [address] [place] [address], documented in this encounter Visit Diagnoses Diagnosis Encounter for other general examination documented in this encounter Additional Health Concerns Infection Onset Date Last Indicated Resolved Time Respiratory Rule-Out 11/26/2024 11/26/2024 024 6:03 PM EST Gastrointestinal Rule-Out 11/30/2024 11/30/2024 7:06 PM EST Assessment Noted Time PHQ-9 Depression Total Score: 0 10/30/20 10:57 PM EST documented as of this encounter Care Teams Epoxy Specialist Relationship Specialty Start Date End Date Anil Bettencourt MD [address] [place] [address] PCP - General 08/02/01 documented as of this encounter
--- OUTSIDE RECORDS SUMMARY | 2025-03-22 05:58 | XMS_ITS | Encounter Summary ---
Author Organization [facility] Address [address] [place] [address] Care Team Providers Care Electronics Department Manager Name Role Phone Anil Bettencourt MD Primary Care Provider [phone] Encounter Details Date Type Department Care Team ([facility] st Contact Info) Description 11/16/[address] [facility] - Main Lab [address] [place] [address] Horace Solomon MD [address] [place] [address] Encounter for other general examination Social History [...] for your loved ones. For example, children's minister or elderly care for an older adult? [...] as of this encounter Plan of Treatment Scheduled Orders Name Type Priority Associated Diagnoses [...] ng/mL LAB CHEMISTRY METHOD 11/16/2024 5:36 PM [facility] Blood Venous blood specimen / Unknown Venipuncture / Unknown 11/16/2024 8:06 AM EST 11/16/2024 9:12 AM EST us Horace Solomon MD LAB BLOOD ORDERABLES Final Res ult [facility] [address] [place] [address], * (ABNORMAL) Iron and TIBC (11/16/2024 8:06 AM EST) Iron 32(L) 40 - 150 mcg/dL LAB CHEMISTRY METHOD 11/16/2024 5:36 PM EST [facility] TIBC 208(L) 250 - 450 mcg/dL LAB CHEMISTRY METHOD 11/16/2024 5:36 PM EST [facility] Iron Saturation 15 15 - 50 % LAB CHEMISTRY METHOD 11/16/2024 5:36 PM EST [facility] Blood Venous blood specimen / Unknown Venipuncture / Unknown 11/16/2024 8:06 AM EST 11/16/2024 9:12 AM EST Horace Solomon MD LAB BLOOD ORDERABLES Final Res ult [facility] [address] [place] [address], [place] [phone] * (ABNORMAL) Complete blood count (11/16/2024 8:06 AM EST) WBC 7.0 4.8 - 10.8 K/mcL LAB HEMETOLOGY METHOD 11/16/2024 10:12 AM [facility] RBC 3.10(L) 3.80 - 4.80 M/mcL LAB HEMETOLOGY METHOD 11/16/2024 10:12 AM [facility] Hemoglobin 9.4(L) 11.5 - 16.0 g/dL LAB HEMETOLOGY METHOD 11/16/2024 10:12 AM [facility] Hematocrit 28.8(L) 35.0 - 47.0 % LAB HEMETOLOGY METHOD 11/16/2024 10:12 AM [facility] MCV 92.0 79.0 - 98.0 FL LAB HEMETOLOGY METHOD 11/16/2024 10:12 AM [facility] MCH 30.0 27.0 - 32.0 pcg LAB HEMETOLOGY METHOD 11/16/2024 10:12 AM [facility] MCHC 32.6 32.0 - 37.0 g/dL LAB HEMETOLOGY METHOD 11/16/2024 10:12 AM [facility] RDW 13.2 11.0 - 15.0 % LAB HEMETOLOGY METHOD 11/16/2024 10:12 AM [facility] Platelets 334 130 - 400 K/mcL LAB HEMETOLOGY METHOD 11/16/2024 10:12 AM EST [facility] MPV 10.6 7.0 - 11.0 FL LAB HEMETOLOGY METHOD 11/16/2024 10:12 AM EST [facility] NRBC 0.0 <1.0 % LAB HEMETOLOGY METHOD 11/16/2024 10:12 AM EST [facility] NRBC Absolute 0.00 <0.10 K/mcL LAB HEMETOLOGY METHOD 11/16/2024 10:12 AM [facility] Blood Venous blood specimen / Unknown Venipuncture / Unknown 11/16/2024 8:06 AM EST 11/16/2024 9:12 AM EST us Horace Solomon MD LAB BLOOD ORDERABLES Final Res ult [facility] [address] [place] [address], [place] [phone] * (ABNORMAL) Comprehensive metabolic panel (11/16/2024 8:06 AM EST) Sodium 141 133 - 145 mmol/L LAB CHEMISTRY METHOD 11/16/2024 10:46 AM [facility] Potassium 4.1 3.5 - 5.5 mmol/L LAB CHEMISTRY METHOD 11/16/2024 10:46 AM [facility] Chloride 105 96 - 110 mmol/L LAB CHEMISTRY METHOD 11/16/2024 10:46 AM [facility] CO2 25 21 - 32 mmol/L LAB CHEMISTRY METHOD 11/16/2024 10:46 AM [facility] Anion Gap 11 3 - 11 LAB CHEMISTRY METHOD 11/16/2024 10:46 AM [facility] Glucose 153(H) 70 - 100 mg/dL LAB CHEMISTRY METHOD 11/16/2024 10:46 AM [facility] BUN 61(H) 5 - 25 mg/dL LAB CHEMISTRY METHOD 11/16/2024 10:46 AM [facility] Creatinine 3.25(H) 0.50 - 1.10 mg/dL LAB CHEMISTRY METHOD 11/16/2024 10:46 AM [facility] eGFR 14(L) >=60 mL/min/1. 73m2 LAB CHEMISTRY METHOD 11/16/2024 10:46 AM [facility] Comment:Calculation based on the??Chronic Kidney Disease Epidemiology Collaboration (CKD-EPI) equation refit??without adjustment for race. BUN/Creatinine Ratio 18.8 LAB CHEMISTRY METHOD 11/16/2024 10:46 AM [facility] Calcium 9.1 8.5 - 10.5 mg/dL LAB CHEMISTRY METHOD 11/16/2024 10:46 AM [facility] AST (SGOT) 10 10 - 42 unit/L LAB CHEMISTRY METHOD 11/16/2024 10:46 AM [facility] ALT (SGPT) 11 10 - 60 unit/L LAB CHEMISTRY METHOD 11/16/2024 10:46 AM [facility] Alkaline Phosphatase 150(H) 42 - 121 unit/L LAB CHEMISTRY METHOD 11/16/2024 10:46 AM [facility] Total Protein 6.6 6.0 - 8.0 g/dL LAB CHEMISTRY METHOD 11/16/2024 10:46 AM [facility] Albumin 3.0(L) 3.2 - 5.0 g/dL LAB CHEMISTRY METHOD 11/16/2024 10:46 AM [facility] Total Bilirubin 0.8 0.0 - 1.4 mg/dL LAB CHEMISTRY METHOD 11/16/2024 10:46 AM [facility] Blood Venous blood specimen / Unknown Venipuncture / Unknown 11/16/2024 8:06 AM EST 11/16/2024 9:12 AM EST us Horace Solomon MD LAB BLOOD ORDERABLES Final Res ult [facility] [address] [place] [address], documented in this encounter Visit Diagnoses Diagnosis Encounter for other general examination documented in this encounter Additional Health Concerns Infection Onset Date Last Indicated Resolved Time Respiratory Rule-Out 11/26/2024 11/26/2024 024 6:03 PM EST Gastrointestinal Rule-Out 11/30/2024 11/30/2024 7:06 PM EST Assessment Noted Time PHQ-9 Depression Total Score: 0 10/30/20 24 10:57 PM EST documented as of this encounter Care Teams Electronics Department Manager Relationship Specialty Start Date End Date Anil Bettencourt MD [address] [place] [address] PCP - General 08/02/01 documented as of this encounter
--- OUTSIDE RECORDS SUMMARY | 2025-03-22 05:58 | XMS_ITS | Encounter Summary ---
Author Organization [facility] [address] Care Team Providers Care Education And Training Coordinator Name Role Phone Anil Bettencourt MD Primary Care Provider [phone] Encounter Details Date Type Department Care Team (Late st Contact Info) Description 11/20/2024 Lab Requisition [facility] - Main Lab [address] [facility] [place] [address] Social History Tobacco Use Types [...] documented as of this encounter Care Teams Education And Training Coordinator Relationship Specialty Start Date End Date Anil Bettencourt MD [address] [place] [address] PCP - General 08/02/01 documented as of this encounter
--- OUTSIDE RECORDS SUMMARY | 2025-03-22 05:58 | XMS_ITS | Encounter Summary ---
Author Organization [facility] Address [address] [place] [address] Care Team Providers Care Jig And Fixture Builder Name Role Phone Anil Bettencourt MD Primary Care Provider [phone] Encounter Details Date Type Department Care Team ([facility] Contact Info) Description 11/17/2024 Lab Requisition [facility] - Main Lab [address] [place] [address] Horace Solomon MD [address] [place] [address] Encounter for other general examination Social History [...] care for your loved ones. For example, manager child or elderly care for an older adult? [...] LAB CHEMISTRY METHOD 11/17/2024 12:13 PM EST [facility] Blood Venous blood specimen / Unknown Venipuncture / Unknown 11/17/2024 7:32 AM EST 11/17/2024 10:54 AM EST us Horace Solomon MD LAB BLOOD ORDERABLES Final Res ult [facility] [address] [place] [address], documented in this encounter Visit Diagnoses Diagnosis Encounter for other general examination documented in this encounter Additional Health Concerns Infection Onset Date Last Indicated Resolved Time Respiratory Rule-Out 11/26/2024 11/26/2024 024 6:03 PM EST Gastrointestinal Rule-Out 11/30/2024 11/30/2024 7:06 PM EST Assessment Noted Time PHQ-9 Depression Total Score: 0 10/30/20 24 10:57 PM EST documented as of this encounter Care Teams Jig And Fixture Builder Relationship Specialty Start Date End Date Anil Bettencourt MD [address] [place] [address] PCP - General 08/02/01 documented as of this encounter
--- OUTSIDE RECORDS SUMMARY | 2025-03-22 05:58 | XMS_ITS | Encounter Summary ---
Author Organization [facility] Address [address] [facility] [address] [place] [address] Phone Care Team Providers Care Infectious Diseases Physician Name Role Phone Jacques Cline MD Primary Care Provider [phone] Reason for Visit * Reason Comments Med Refill Encounter Details Date Type Department Care Team (Late st Contact Info) Description 11/04/2024 Refill [facility] [address] [facility] [address] [place] [address] Joel Colvin MD [address] [facility] [address] [place] [address] Social History Tobacco Use Types Packs/Day Years [...] on filedocumented in this encounter Care Teams Infectious Diseases Physician Relationship Specialty Start Date End Date Jacques Cline MD [address] [facility] [address] [place] [address] PCP - General Nephrology 04/29/22 documented as of this encounter
--- OUTSIDE RECORDS SUMMARY | 2025-03-22 05:58 | XMS_ITS | Encounter Summary ---
Author Organization [facility] [place] [address] Care Team Providers Care Tiltrotor Crew Chief Name Role Phone Anil Bettencourt MD Primary Care Provider [phone] Encounter Details Date Type Department Care Team (Late st Contact Info) Description 11/23/2024 Lab Requisition [facility] - Main Lab [address] [facility] [place] [address] Horace Solomon MD [address] [place] [phone] Other diseases of stomach and duodenum; Encounter [...] LAB CHEMISTRY METHOD 11/23/2024 10:21 AM EST [facility] Urine Urine specimen obtained by clean catch procedure / Unknown 11/22/2024 7:55 PM EST 11/23/2024 9:24 AM EST Horace Solomon MD LAB URINE ORDERABLES Final Res ult Performing Organization Address City/[facility]/ZIP Co de Phone Number [facility] [address] [place] [address], [place] [phone] * Protein, urine, random (11/22/2024 7:55 PM EST) Protein, Urine 177 mg/dL LAB CHEMISTRY METHOD 11/23/2024 10:21 AM EST [facility] Urine Urine specimen obtained by clean catch procedure / Unknown 11/22/2024 7:55 PM EST 11/23/2024 9:24 AM EST us Horace Solomon MD LAB URINE ORDERABLES Final Res ult [facility] [address] [place] [address], [place] [phone] documented in this encounter Visit Diagnoses Diagnosis [...] documented as of this encounter Care Teams Tiltrotor Crew Chief Relationship Specialty Start Date End Date Anil Bettencourt MD [address] [place] [address] PCP - General 08/02/01 documented as of this encounter
--- OUTSIDE RECORDS SUMMARY | 2025-03-22 05:58 | XMS_ITS | Encounter Summary ---
Author Organization [facility] Address [address] [place] [address] Care Team Providers Care Network Operations Analyst Name Role Phone Anil Bettencourt MD Primary Care Provider [phone] Encounter Details Date Type Department Care Team (Latest Contact Info) Description 01/10/2025 Lab Requisition [facility] - Main Lab [address] [place] [address] Tyree Amador MD [address] [place] [address] Type 2 diabetes mellitus with hyperglycemia [...] your loved ones. For example, child care development specialist or elderly care for an older [...] EST Type 2 diabetes mellitus with hyperglycemia ([facility]/HCC) Chronic kidney disease, unspecified BASIC METABOLIC PANEL Routine 01/11/2025 5:48 AM EST Type 2 diabetes mellitus with hyperglycemia ([facility]/HCC) Chronic kidney disease, unspecified documented in this encounter Results * (ABNORMAL) Basic metabolic panel (01/11/2025 5:48 AM EST) Sodium 140 133 - 145 mmol/L LAB CHEMISTRY METHOD 01/11/2025 11:04 AM [facility] Potassium 4.3 3.5 - 5.5 mmol/L LAB CHEMISTRY METHOD 01/11/2025 11:04 AM [facility] Comment:Hemolysis present Chloride 110 96 - 110 mmol/L LAB CHEMISTRY METHOD 01/11/2025 11:04 AM [facility] CO2 24 21 - 32 mmol/L LAB CHEMISTRY METHOD 01/11/2025 11:04 AM [facility] Anion Gap 6 3 - 11 LAB CHEMISTRY METHOD 01/11/2025 11:04 AM [facility] Glucose 78 70 - 100 mg/dL LAB CHEMISTRY METHOD 01/11/2025 11:04 AM [facility] BUN 44(H) 5 - 25 mg/dL LAB CHEMISTRY METHOD 01/11/2025 11:04 AM [facility] Creatinine 2.75(H) 0.50 - 1.10 mg/dL LAB CHEMISTRY METHOD 01/11/2025 11:04 AM [facility] eGFR 17(L) >=60 mL/min/1. 73m2 LAB CHEMISTRY METHOD 01/11/2025 11:04 AM [facility] Comment:Calculation based on the??Chronic Kidney Disease Epidemiology Collaboration (CKD-EPI) equation refit??without adjustment for race. BUN/Creatinine Ratio 16.0 LAB CHEMISTRY METHOD 01/11/2025 11:04 AM EST [facility] Calcium 8.7 8.5 - 10.5 mg/dL LAB CHEMISTRY METHOD 01/11/2025 11:04 AM [facility] Blood Venous blood specimen / Unknown Venipuncture / Unknown 01/11/2025 5:48 AM EST 01/11/2025 10:20 AM EST us Tyree Amador MD LAB BLOOD ORDERABLES Final Resu lt [facility] [address] [place] [address], [place] [phone] * (ABNORMAL) Complete blood count (01/11/2025 5:48 AM EST) WBC 5.8 4.8 - 10.8 K/mcL LAB HEMETOLOGY METHOD 01/11/2025 10:45 AM [facility] RBC 3.00(L) 3.80 - 4.80 M/mcL LAB HEMETOLOGY METHOD 01/11/2025 10:45 AM [facility] Hemoglobin 8.8(L) 11.5 - 16.0 g/dL LAB HEMETOLOGY METHOD 01/11/2025 10:45 AM [facility] Hematocrit 27.9(L) 35.0 - 47.0 % LAB HEMETOLOGY METHOD 01/11/2025 10:45 AM [facility] MCV 94.6 79.0 - 98.0 FL LAB HEMETOLOGY METHOD 01/11/2025 10:45 AM [facility] MCH 29.8 27.0 - 32.0 pcg LAB HEMETOLOGY METHOD 01/11/2025 10:45 AM [facility] MCHC 31.5(L) 32.0 - 37.0 g/dL LAB HEMETOLOGY METHOD 01/11/2025 10:45 AM EST [facility] RDW 14.1 11.0 - 15.0 % LAB HEMETOLOGY METHOD 01/11/2025 10:45 AM EST [facility] Platelets 246 130 - 400 K/mcL LAB HEMETOLOGY METHOD 01/11/2025 10:45 AM EST [facility] MPV 11.3(H) 7.0 - 11.0 FL LAB HEMETOLOGY METHOD 01/11/2025 10:45 AM EST [facility] NRBC 0.0 <1.0 % LAB HEMETOLOGY METHOD 01/11/2025 10:45 AM EST [facility] NRBC Absolute 0.00 <0.10 K/mcL LAB HEMETOLOGY METHOD 01/11/2025 10:45 AM EST [facility] Blood Venous blood specimen / Unknown Venipuncture / Unknown 01/11/2025 5:48 AM EST 01/11/2025 10:20 AM EST us Tyree Amador MD LAB BLOOD ORDERABLES Final Resu lt [facility] [address] [place] [address], documented in this encounter Visit Diagnoses Diagnosis Type 2 diabetes mellitus with hyperglycemia (CMS/HCC V24, CMS/HCC V28) Chronic kidney disease, unspecified documented in this encounter Additional Health Concerns Assessment Noted Time PHQ-9 Depression Total Score: 0 10/30/20 24 10:57 PM EST documented as of this encounter Care Teams Network Operations Analyst Relationship Specialty Start Date End Date Anil Bettencourt MD [address] [place] [phone] PCP - General 08/02/01 documented as of this encounter
--- OUTSIDE RECORDS SUMMARY | 2025-03-22 05:58 | XMS_ITS | Encounter Summary ---
Author Organization [facility] Address [address] [place] [address] Care Team Providers Care Freight Flow Sales Leader Name Role Phone Anil Bettencourt MD Primary Care Provider [phone] Encounter Details Date Type Department Care Team ([facility] Contact Info) Description 11/23/2024 Lab Requisition [facility] - Main Lab [address] [place] [address] Horace Solomon MD [address] [place] [id number] Encounter for other general examination Social History [...] your loved ones. For example, child welfare specialist or elderly care for an older [...] K/mcL LAB HEMETOLOGY METHOD 11/23/2024 9:50 AM [facility] RBC 2.60(L) 3.80 - 4.80 M/mcL LAB HEMETOLOGY METHOD 11/23/2024 9:50 AM [facility] Hemoglobin 7.9(L) 11.5 - 16.0 g/dL LAB HEMETOLOGY METHOD 11/23/2024 9:50 AM [facility] Hematocrit 23.9(L) 35.0 - 47.0 % LAB HEMETOLOGY METHOD 11/23/2024 9:50 AM [facility] MCV 90.9 79.0 - 98.0 FL LAB HEMETOLOGY METHOD 11/23/2024 9:50 AM [facility] MCH 30.0 27.0 - 32.0 pcg LAB HEMETOLOGY METHOD 11/23/2024 9:50 AM [facility] MCHC 33.1 32.0 - 37.0 g/dL LAB HEMETOLOGY METHOD 11/23/2024 9:50 AM [facility] RDW 13.2 11.0 - 15.0 % LAB HEMETOLOGY METHOD 11/23/2024 9:50 AM [facility] Platelets 328 130 - 400 K/mcL LAB HEMETOLOGY METHOD 11/23/2024 9:50 AM [facility] MPV 10.3 7.0 - 11.0 FL LAB HEMETOLOGY METHOD 11/23/2024 9:50 AM EST [facility] NRBC 0.0 <1.0 % LAB HEMETOLOGY METHOD 11/23/2024 9:50 AM EST [facility] NRBC Absolute 0.00 <0.10 K/mcL LAB HEMETOLOGY METHOD 11/23/2024 9:50 AM EST [facility] Blood Venous blood specimen / Unknown Venipuncture / Unknown 11/23/2024 6:01 AM EST 11/23/2024 8:50 AM EST us Horace Solomon MD LAB BLOOD ORDERABLES Final Res ult [facility] [address] [place] [address], [place] [phone] * (ABNORMAL) Comprehensive metabolic panel (11/23/2024 6:01 AM EST) Sodium 140 133 - 145 mmol/L LAB CHEMISTRY METHOD 11/23/2024 10:06 AM [facility] Potassium 3.6 3.5 - 5.5 mmol/L LAB CHEMISTRY METHOD 11/23/2024 10:06 AM [facility] Chloride 105 96 - 110 mmol/L LAB CHEMISTRY METHOD 11/23/2024 10:06 AM [facility] CO2 27 21 - 32 mmol/L LAB CHEMISTRY METHOD 11/23/2024 10:06 AM [facility] Anion Gap 8 3 - 11 LAB CHEMISTRY METHOD 11/23/2024 10:06 AM [facility] Glucose 134(H) 70 - 100 mg/dL LAB CHEMISTRY METHOD 11/23/2024 10:06 AM [facility] BUN 69(H) 5 - 25 mg/dL LAB CHEMISTRY METHOD 11/23/2024 10:06 AM [facility] Creatinine 3.62(H) 0.50 - 1.10 mg/dL LAB CHEMISTRY METHOD 11/23/2024 10:06 AM [facility] eGFR 12(L) >=60 mL/min/1. 73m2 LAB CHEMISTRY METHOD 11/23/2024 10:06 AM [facility] Comment:Calculation based on the??Chronic Kidney Disease Epidemiology Collaboration (CKD-EPI) equation refit??without adjustment for race. BUN/Creatinine Ratio 19.1 LAB CHEMISTRY METHOD 11/23/2024 10:06 AM [facility] Calcium 8.6 8.5 - 10.5 mg/dL LAB CHEMISTRY METHOD 11/23/2024 10:06 AM [facility] AST (SGOT) 13 10 - 42 unit/L LAB CHEMISTRY METHOD 11/23/2024 10:06 AM [facility] ALT (SGPT) 11 10 - 60 unit/L LAB CHEMISTRY METHOD 11/23/2024 10:06 AM [facility] Alkaline Phosphatase 160(H) 42 - 121 unit/L LAB CHEMISTRY METHOD 11/23/2024 10:06 AM [facility] Total Protein 6.2 6.0 - 8.0 g/dL LAB CHEMISTRY METHOD 11/23/2024 10:06 AM [facility] Albumin 2.7(L) 3.2 - 5.0 g/dL LAB CHEMISTRY METHOD 11/23/2024 10:06 AM [facility] Total Bilirubin 0.5 0.0 - 1.4 mg/dL LAB CHEMISTRY METHOD 11/23/2024 10:06 AM [facility] Blood Venous blood specimen / Unknown Venipuncture / Unknown 11/23/2024 6:01 AM EST 11/23/2024 8:50 AM EST us Horace Solomon MD LAB BLOOD ORDERABLES Final Res ult [facility] [address] [place] [address], documented in this encounter Visit Diagnoses Diagnosis Encounter for other general examination documented in this encounter Additional Health Concerns Infection Onset Date Last Indicated Resolved Time Respiratory Rule-Out 11/26/2024 11/26/2024 024 6:03 PM EST Gastrointestinal Rule-Out 11/30/2024 11/30/2024 7:06 PM EST Assessment Noted Time PHQ-9 Depression Total Score: 0 10/30/20 24 10:57 PM EST documented as of this encounter Care Teams Freight Flow Sales Leader Relationship Specialty Start Date End Date Anil Bettencourt MD [address] [place] [address] PCP - General 08/02/01 documented as of this encounter
--- OUTSIDE RECORDS SUMMARY | 2025-03-22 05:58 | XMS_ITS | Clinical Summary ---
Author Organization [facility] Address [address] [place] [address] Phone Care Team Providers Care Silk Examiner Name Role Phone Jacques Cline MD Primary Care Provider [phone] Allergies Active Allergy Reactions Criticality Noted Date [...] 0 Refills, Maintenance, 11/20/21 15:05:00 EST, Gel, [facility] 3, Partial fill upon [...] APPLY TO AFFECTED AREA TWICE DAILY Active [place]-3 Fatty Acids (FISH OIL PO) Take by [...] 02/02/2022 Obstructive sleep apnea 01/29/2022 Overview (04/29/2022): [facility] diagnostic polysomnogram 01/13/2022. Weight 166; BMI 28.AHI [...] 11/18/2021 Coronary arteriosclerosis 08/05/2016 Overview (10/28/2021): hosp 8 chest pain. . mibi abnormal. PTCA RCA [...] Encounters Date Type Department Care Team Description 03/06/2025 Treatment [facility] [address] [address] Carlos Siddiqui MD End stage renal disease; Dependence on renal dialysis from Last 3 Months Immunizations Immunization Administration Dates Next Due H1N1 Inj 12/02/2009 [...] Maintenance Due Date Last Done Comments Hepatitis B Vaccine (1 of 5 - Risk Dialysis 4-dose series) 1965 Diabetes: Ophthalmology Exam 01/01/2025 Diabetes: Pedal Pulse Checked 01/01/2025 Diabetes: Sensory Foot Exam 01/01/2025 Diabetes: Visual Foot Exam 01/01/2025 Diabetes: Hemoglobin A1C 06/05/2025 03/06/2025, 10/29 Pneumococcal Vaccine: 50+ Years Completed 08/24/2017, 02/21/2016, 11/08/2007, Additional history exists Pneumococcal Vaccine: Peds ( 0 to 5 Years) and At-Risk Patients (6 to 49 Years) Discontinued 08/24/2017, 02/21/2016, 11/08/2007, Additional history exists Influenza Vaccine Completed 10/31/2024, , 11/04/2021, Additional history exists Procedures Procedure Name Priority Date/Time Associated Diagnosis Comments ALUMINUM LEVEL Routine 03/06/2025 3:00 AM EDT HEPATITIS C ABS W/REFLEX RNA DETECTR Routine 03/06/2025 3:00 AM EDT HEPATITIS B CORE AB TOTAL Routine 03/06/2025 3:00 AM EDT CONFIRMATION TEST HCV Routine 03/06/2025 3:00 AM EDT HEPATITIS B SURFACE ANTIGEN W/REFL CONFIRM Routine 03/06/2025 3:00 AM EDT TRANSFERRIN SATURATION Routine 3:00 AM EDT URIC ACID Routine 03/06/2025 3:00 AM EDT PROTEIN, TOTAL, SERUM Routine 03/06/2025 3:00 AM EDT MAGNESIUM Routine 03/06/2025 3:00 AM EDT LIPID PANEL Routine 03/06/2025 3:00 AM EDT ELECTROLYTE PANEL Routine 03/06/2025 3:0 0 AM EDT LACTATE DEHYDROGENASE Routine 03/06/2025 3:00 AM EDT BILIRUBIN, TOTAL Routine 03/06/2025 3:00 AM EDT LIH (HC) Routine 03/06/2025 3:00 AM EDT CREATININE, SERUM Routine 03/06/2025 3:0 0 AM EDT GLUCOSE, RANDOM Routine 03/06/2025 3:00 AM EDT AST Routine 03/06/2025 3:00 AM EDT ALT Routine 03/06/2025 3:00 AM EDT ALKALINE PHOSPHATASE Routine 03/06/2025 3:00 AM EDT CALCIUM PHOSPHORUS PRODUCT, ADJUSTED (HC) Routine 03/06/2025 3:00 AM EDT VITAMIN D 25 HYDROXY Routine 03/06/2025 3:00 AM EDT FERRITIN Routine 03/06/2025 3:00 AM EDT HEPATITIS B SURFACE ANTIBODY QUANT Routine 03/06/2025 3:00 AM EDT PTH, INTACT Routine 03/06/2025 3:00 AM EDT HEMOGLOBIN A1C Routine 03/06/2025 3:00 AM EDT KT/V NATURAL LOG, URR (HC) Routine 03/06/2025 3:00 AM EDT CBC AND DIFFERENTIAL Routine 03/06/2025 3:00 AM EDT from Last 3 Months Results * Confirmation Test HCV (03/06/2025 3:00 AM EDT) Hep C Ab Confirmation Not needed [facility] 03/06/2025 3:00 AM EDT 03/07/2025 3:03 PM EDT Carlos Siddiqui MD LAB BLOOD ORDERABLES Final Result Performing Organization Address [facility] Co de Phone Number [facility] [address] [place] [address] * LIH (03/06/2025 3:00 AM EDT) Pathologist [facility] Lipemia Normal Normal [facility] Icterus Normal Normal [facility] Hemolysis Normal Normal [facility] 03/06/2025 3:00 AM EDT 03/07/2025 3:32 PM EDT Carlos Siddiqui MD LAB HISTORICA [id number] RESULTS Final Result Performing Organization Address [facility] de Phone Number [facility] [address] [place] [address] * (ABNORMAL) Kt/V Natural Log, URR (03/06/2025 3:00 AM EDT) Pathologist [facility] Treatment Time 210 min [facility] Pre-Weight, lb 60.6 kg [facility] Post-Weight, lb 61.0 kg [facility] Ultrafiltration Rate See Comment(A A) <=13 mL/kg/hr [facility] Comment: Unable to calculate due to post-weight greater than pre-weight. Recommend achieving Ultrafiltration Rate (UFR) <=10 mL/kg/hr References: Heide BURKETT et al. Kidney Int. 2010; 79(2):250-257 BUN Post Dialysis 12 7 - 25 mg/dL [facility] BUN 61(H) 7 - 25 mg/dL [facility] UREA REDUCTION RATIO (%) 80 >=65 % [facility] Kt/V Natural Log 1.76 >=1.2 [facility] 03/06/2025 3:00 AM EDT 03/07/2025 1:15 PM EDT Carlos Siddiqui MD LAB HISTORICA [id number] RESULTS Final Result Performing Organization Address [facility] de Phone Number [facility] [address] [place] [address] * (ABNORMAL) Calcium Phosphorus Product, Adjusted (03/06/2025 3:00 AM EDT) Albumin 3.3(L) 3.6 - 5.4 g/dL [facility] Calcium 8.2(L) 8.6 - 10.3 mg/dL [facility] Phosphorus, Serum 7.4(H) 2.5 - 5.0 mg/dL [facility] Ca*PO4 60.7(A) <55.0 mg2/dL2 [facility] Calcium, Adjusted Total 8.8 8.6 - 10.3 mg/dL [facility] CA*PO4 CORRCTD 65.1(A) <55.0 mg2/dL2 [facility] 03/06/2025 3:00 AM EDT 03/07/2025 3:32 PM EDT us Carlos Siddiqui MD LAB HISTORICA [id number] RESULTS Final Result Performing Organization Address [facility] de Phone Number [facility] [address] [place] [address] * HEPATITIS C ABS W/REFLEX RNA DETECTR (03/06/2025 3:00 AM EDT) Hep C Virus Ab Non-Reacti ve Non-Reacti ve [facility] 03/06/2025 3:00 AM EDT 03/07/2025 3:32 PM EDT Carlos Siddiqui MD LAB HISTORICA [id number] RESULTS Final Result Performing Organization Address [facility] de Phone Number [facility] [address] [place] [address] * Hepatitis B Surface Ag w/Reflex Confirmation (03/06/2025 3:00 AM EDT) Hep B Surface Antigen Negative Negative [facility] 03/06/2025 3:00 AM EDT 03/07/2025 3:32 PM EDT Carlos Siddiqui MD LAB BLOOD ORDERABLES Final Result Performing Organization Address [facility] Co de Phone Number [facility] [address] [place] [address] * (ABNORMAL) TSAT (03/06/2025 3:00 AM EDT) Pathologist [facility] Iron 33(L) 50 - 170 ug/dL [facility] Transferrin 120(L) 250 - 380 mg/dL [facility] TIBC 168(L) 211 - 406 ug/dL [facility] Iron Saturation (TSat) 20(L) 22 - 52 % [facility] 03/06/2025 3:00 AM EDT 03/07/2025 3:32 PM EDT Carlos Siddiqui MD LAB BLOOD ORDERABLES Final Result Performing Organization Address [facility] Co de Phone Number [facility] [address] [place] [address] * Hepatitis B Core Antibody, Total (03/06/2025 3:00 AM EDT) Pathologist [facility] HBc Total Ab, S Negative Negative [facility] 03/06/2025 3:00 AM EDT 03/07/2025 3:32 PM EDT Carlos Siddiqui MD LAB BLOOD ORDERABLES Final Result Performing Organization Address [facility] Co de Phone Number [facility] [address] [place] [address] * (ABNORMAL) Aluminum level (03/06/2025 3:00 AM EDT) Pathologist [facility] Aluminum 21(H) 1 - 20 ug/L [facility] Comment:Verified by repeat a nalysis 03/06/2025 3:00 AM EDT 03/07/2025 3:18 PM EDT Carlos Siddiqui MD LAB BLOOD ORDERABLES Final Result Performing Organization Address [facility] de Phone Number [facility] [address] [place] [address] * Vitamin D 25 Hydroxy (03/06/2025 3:00 AM EDT) [facility] Vitamin D, 25-Hydroxy 33 30 - 100 ng/mL [facility] Comment: Status ? Adult ?? Pediatric Deficient: ? <20 ? <15 Insufficient: ??20-29 ?? 15-19 Sufficient: ?30-100 ??20-100 03/06/2025 3:00 AM EDT 03/07/2025 3:32 PM EDT Carlos Siddiqui MD LAB BLOOD ORDERABLES Final Result Performing Organization Address [facility] de Phone Number [facility] [address] [place] [address] * (ABNORMAL) Hepatitis B Surface Antibody (03/06/2025 3:00 AM EDT) [facility] Hep B Surface Antibody <4(A) mIU/mL [facility] Comment: Interpretation: <10: No Immunity >=10: Probable Immunity 03/06/2025 3:00 AM EDT 03/07/2025 3:32 PM EDT Carlos Siddiqui MD LAB BLOOD ORDERABLES Final Result Performing Organization Address [facility] de Phone Number [facility] [address] [place] [address] * (ABNORMAL) CBC and Differential (03/06/2025 3:00 AM EDT) [facility] DIFFERENTIAL MANUAL, 2 Not Indicated [facility] White Blood Cells 9.2 4.0 - 10.0 K/uL [facility] RBC 2.71(L) 3.93 - 5.22 M/uL [facility] Hgb 8.2(L) 11.2 - 15.7 g/dL [facility] Hemoglobin x 3 24.6(L) 33.6 - 47.1 g/dL [facility] Hematocrit 24.7(L) 34.1 - 44.9 % [facility] MCV 91.1 79.4 - 94.8 fL [facility] MCH 30.3 25.6 - 32.2 pg [facility] MCHC 33.2 32.2 - 35.5 g/dL [facility] Platelets 236 182 - 369 K/uL [facility] RDW 15.0(H) 11.7 - 14.4 % [facility] Neutrophils Relative 82.4(H) 34.0 - 71.1 % [facility] Lymphocytes Relative 8.2(L) 19.3 - 51.7 % [facility] Monocytes 6.4 4.7 - 12.5 % [facility] Eosinophils Relative 1.2 0.7 - 5.8 % [facility] Basophils Relative 0.9 0.1 - 1.2 % [facility] Immature Granulocytes 0.9 0.0 - 1.0 % [facility] 03/06/2025 3:00 AM EDT 03/07/2025 3:03 PM EDT Carlos Siddiqui MD LAB BLOOD ORDERABLES Final Result Performing Organization Address [facility] Co de Phone Number [facility] [address] [place] [address] * (ABNORMAL) Uric Acid (03/06/2025 3:00 AM EDT) Uric Acid 10.2(H) 2.3 - 6.6 mg/dL [facility] 03/06/2025 3:00 AM EDT 03/07/2025 3:32 PM EDT Carlos Siddiqui MD LAB BLOOD ORDERABLES Final Result Performing Organization Address [facility] Co de Phone Number [facility] [address] [place] [address] * ALT (03/06/2025 3:00 AM EDT) ALT (SGPT) 13 10 - 49 U/L [facility] 03/06/2025 3:00 AM EDT 03/07/2025 3:32 PM EDT us Carlos Siddiqui MD LAB BLOOD ORDERABLES Final Result Performing Organization Address [facility] de Phone Number [facility] [address] [place] [address] * AST (03/06/2025 3:00 AM EDT) AST (SGOT) 23 <34 U/L [facility] 03/06/2025 3:00 AM EDT 03/07/2025 3:32 PM EDT us Carlos Siddiqui MD LAB BLOOD ORDERABLES Final Result Performing Organization Address [facility] de Phone Number [facility] [address] [place] [address] * Protein, total (03/06/2025 3:00 AM EDT) Total Protein 6.4 6.4 - 8.9 g/dL [facility] 03/06/2025 3:00 AM EDT 03/07/2025 3:32 PM EDT us Carlos Siddiqui MD LAB BLOOD ORDERABLES Final Result Performing Organization Address [facility] de Phone Number [facility] [address] [place] [address] * (ABNORMAL) Alkaline phosphatase (03/06/2025 3:00 AM EDT) Alkaline Phosphatase 165(H) 46 - 116 U/L [facility] 03/06/2025 3:00 AM EDT 03/07/2025 3:32 PM EDT us Carlos Siddiqui MD LAB BLOOD ORDERABLES Final Result Performing Organization Address [facility] Co de Phone Number [facility] [address] [place] [address] * PTH, Intact (03/06/2025 3:00 AM EDT) Pathologist [facility] PTH, Intact 203 160 - 721 pg/mL [facility] Comment: Suggested (KDIGO) ESRD maintenance range is two to nine times the upper normal limit (80.1 pg/mL) for the laboratory. 03/06/2025 3:00 AM EDT 03/07/2025 3:32 PM EDT us Carlos Siddiqui MD LAB BLOOD ORDERABLES Final Result Performing Organization Address [facility] de Phone Number [facility] [address] [place] [address] * Magnesium (03/06/2025 3:00 AM EDT) Pathologist [facility] Magnesium 2.4 1.9 - 2.7 mg/dL [facility] 03/06/2025 3:00 AM EDT 03/07/2025 3:32 PM EDT us Carlos Siddiqui MD LAB BLOOD ORDERABLES Final Result Performing Organization Address [facility] de Phone Number [facility] [address] [place] [address] * (ABNORMAL) Lactate dehydrogenase (03/06/2025 3:00 AM EDT) Pathologist [facility] LDH 279(H) 120 - 246 U/L [facility] 03/06/2025 3:00 AM EDT 03/07/2025 3:32 PM EDT us Carlos Siddiqui MD LAB BLOOD ORDERABLES Final Result Performing Organization Address [facility] de Phone Number [facility] [address] [place] [address] * (ABNORMAL) Hemoglobin A1c (03/06/2025 3:00 AM EDT) Hemoglobin A1C 6.0(H) <5.7 % [facility] Comment: Methodology: Enzymatic HbA1c (NGSP %) ?Suggested Diagnosis >6.4% ? Diabetic 5.7-6.4% ?Pre-Diabetic <5.7% ? Non-Diabetic Diabetic Glucose Control Evaluation: Therapeutic action suggested at >8.0% ADA recommends a glycemic goal of <7.0% 03/06/2025 3:00 AM EDT 03/07/2025 3:03 PM EDT Carlos Siddiqui MD LAB BLOOD ORDERABLES Final Result Performing Organization Address [facility] de Phone Number [facility] [address] [place] [address] * (ABNORMAL) Glucose, random (03/06/2025 3:00 AM EDT) Glucose 112(H) 74 - 109 mg/dL [facility] 03/06/2025 3:00 AM EDT 03/07/2025 3:32 PM EDT Carlos Siddiqui MD LAB BLOOD ORDERABLES Final Result Performing Organization Address [facility] de Phone Number [facility] [address] [place] [address] * (ABNORMAL) Ferritin (03/06/2025 3:00 AM EDT) Ferritin 685(H) 10 - 291 ng/mL [facility] 03/06/2025 3:00 AM EDT 03/07/2025 3:32 PM EDT Carlos Siddiqui MD LAB BLOOD ORDERABLES Final Result Performing Organization Address [facility] de Phone Number [facility] [address] [place] [address] * (ABNORMAL) Creatinine, serum (03/06/2025 3:00 AM EDT) Creatinine 5.76(H) 0.55 - 1.02 mg/dL [facility] 03/06/2025 3:00 AM EDT 03/07/2025 3:32 PM EDT Carlos Siddiqui MD LAB BLOOD ORDERABLES Final Result Performing Organization Address [facility] de Phone Number [facility] [address] [place] [address] * Bilirubin, total (03/06/2025 3:00 AM EDT) Total Bilirubin 0.5 0.3 - 1.2 mg/dL [facility] 03/06/2025 3:00 AM EDT 03/07/2025 3:32 PM EDT Carlos Siddiqui MD LAB BLOOD ORDERABLES Final Result Performing Organization Address [facility] de Phone Number [facility] [address] [place] [address] * (ABNORMAL) Lipid panel (03/06/2025 3:00 AM EDT) Cholesterol 108 <200 mg/dL [facility] Comment: Optimal: ?<200 Borderline: ? 200-239 High Risk: ?>239 Triglycerides 180(A) <150 mg/dL [facility] Comment: Optimal: ?<150 Borderline High: ??150-199 High: ? 200-499 Very High: ?>499 HDL 17(A) >59 mg/dL [facility] Comment: Optimal: >59 High Risk: <40 LDL-Calc 55 <100 mg/dL [facility] Comment: Optimal: ?<100 Above Optimal: ?100-129 Borderline High: ??130-159 High: ? 160-189 Very High: ?>189 VLDL Cholesterol Jose Antonio 36(A) <30 mg/dL [facility] Comment: Optimal: ?<30 Borderline High: ??30-39 High: ? 40-99 Very High: ?>99 Chol/HDL Ratio 6.4(A) <3.3 [facility] Comment: Optimal: ?<3.3 High Risk: ?>6.2 03/06/2025 3:00 AM EDT 03/07/2025 3:32 PM EDT Carlos Siddiqui MD LAB BLOOD ORDERABLES Final Result Performing Organization Address [facility] Co de Phone Number [facility] [address] [place] [address] * (ABNORMAL) Electrolyte panel (03/06/2025 3:00 AM EDT) Sodium 135(L) 136 - 145 mEq/L [facility] Potassium 5.6(H) 3.4 - 5.0 mEq/L [facility] Chloride 98 98 - 107 mEq/L [facility] Bicarbonate (CO2) 23 21 - 31 mEq/L [facility] Anion Gap 14 3 - 14 mEq/L [facility] 03/06/2025 3:00 AM EDT 03/07/2025 3:32 PM EDT Carlos Siddiqui MD LAB BLOOD ORDERABLES Final Result Performing Organization Address [facility] Co de Phone Number [facility] [address] [place] [address] from Last 3 Months Insurance Medicare [employer] Medicare [facility] Medicare Care Teams Silk Examiner Relationship Specialty Start Date End Date Jacques Cline MD [address] [phone] PCP - General Nephrology 04/29/22
--- OUTSIDE RECORDS SUMMARY | 2025-03-22 05:58 | XMS_ITS | Encounter Summary ---
Author Organization [facility] Address [address] [place] [address] Care Team Providers Care Molding Plasterer Name Role Phone Anil Bettencourt MD Primary Care Provider [phone] Encounter Details Date Type Department Care Team ([facility] Contact Info) Description 11/21/2024 Lab Requisition [facility] - Main Lab [address] [place] [address] Horace Solomon MD [address] [place] [phone] Encounter for other general examination Social History [...] your loved ones. For example, child nutrition manager or elderly care for an older adult? [...] mmol/L LAB CHEMISTRY METHOD 11/21/2024 10:44 AM [facility] Potassium 3.7 3.5 - 5.5 mmol/L LAB CHEMISTRY METHOD 11/21/2024 10:44 AM [facility] Chloride 103 96 - 110 mmol/L LAB CHEMISTRY METHOD 11/21/2024 10:44 AM [facility] CO2 27 21 - 32 mmol/L LAB CHEMISTRY METHOD 11/21/2024 10:44 AM [facility] Anion Gap 9 3 - 11 LAB CHEMISTRY METHOD 11/21/2024 10:44 AM [facility] Glucose 137(H) 70 - 100 mg/dL LAB CHEMISTRY METHOD 11/21/2024 10:44 AM [facility] BUN 67(H) 5 - 25 mg/dL LAB CHEMISTRY METHOD 11/21/2024 10:44 AM [facility] Creatinine 3.59(H) 0.50 - 1.10 mg/dL LAB CHEMISTRY METHOD 11/21/2024 10:44 AM [facility] eGFR 12(L) >=60 mL/min/1. 73m2 LAB CHEMISTRY METHOD 11/21/2024 10:44 AM [facility] Comment:Calculation based on the??Chronic Kidney Disease Epidemiology Collaboration (CKD-EPI) equation refit??without adjustment for race. BUN/Creatinine Ratio 18.7 LAB CHEMISTRY METHOD 11/21/2024 10:44 AM [facility] Calcium 8.3(L) 8.5 - 10.5 mg/dL LAB CHEMISTRY METHOD 11/21/2024 10:44 AM [facility] Blood Venous blood specimen / Unknown Venipuncture / Unknown 11/21/2024 5:25 AM EST 11/21/2024 9:37 AM EST us Horace Solomon MD LAB BLOOD ORDERABLES Final Res ult [facility] [address] [place] [address], documented in this encounter Visit Diagnoses Diagnosis Encounter for other general examination documented in this encounter Additional Health Concerns Infection Onset Date Last Indicated Resolved Time Respiratory Rule-Out 11/26/2024 11/26/2024 024 6:03 PM EST Gastrointestinal Rule-Out 11/30/2024 11/30/2024 7:06 PM EST Assessment Noted Time PHQ-9 Depression Total Score: 0 10/30/20 24 10:57 PM EST documented as of this encounter Care Teams Molding Plasterer Relationship Specialty Start Date End Date Anil Bettencourt MD [address] [place] [address] PCP - General 08/02/01 documented as of this encounter
--- OUTSIDE RECORDS SUMMARY | 2025-03-22 05:58 | XMS_ITS | Clinical Summary ---
Author Organization [facility] Address [address] [place], [place] [address] Phone Care Team Providers Care Printing Technician Name Role Phone Anil Bettencourt MD Primary Care Provider [phone] Allergies Active Allergy Reactions Criticality Noted Date [...] capsule Take 2 Caps by mouth daily. 3 Active blood-glucose meter,continuou s misc 1 Device [...] units 301-350: 4 units >351-: 5 units 4 Active insulin degludec (Tresiba FlexTouch U-100) 100 unit/mL (3 mL) injection pen 34 Units at bedtime. 3 Active lifitegrast (Xiidra) 5 % dropperette apply 2 Drops to the eye 2 times daily. Active MAGNESIUM GLUCONATE ORAL Take 200 mg by mouth at bedtime. Active multivitamin (MULTIPLE VITAMINS ORAL) Brain health 1 daily Active apixaban (ELIQUIS) 2.5 mg tablet Take [...] (one) time each day. 90 each 1 4 Active amLODIPine (NORVASC) 10 mg tablet TAKE 1 TABLET BY MOUTH EVERY DAY 90 tablet 1 5 Active gabapentin (NEURONTIN) 300 mg capsule Take 1 capsule (300 mg total) by mouth at bedtime. at bedtime Active atorvastatin (LIPITOR) 80 mg tablet Take 1 tablet (80 mg total) by mouth 1 (one) time each day. 90 each 1 5 025 Active metoprolol succinate (TOPROL-XL) 50 mg 24 hr tablet Take 1 tablet (50 mg total) by mouth 1 (one) time each day. Do not crush or chew. 90 each 1 5 025 Active Additional Information Patient not taking.Reported on 2024 hydrALAZINE (APRESOLINE) 50 mg tablet Take 1 tablet (50 mg total) by mouth 3 (three) times a day. 270 tablet 5 Active cloNIDine (CATAPRES) 0.1 mg tablet Take 1 tablet (0.1 mg total) by mouth 2 (two) times a day. 180 each 3 5 026 Active sodium bicarbonate 650 mg tablet TAKE 2 TABLETS BY MOUTH 3 TIMES DAILY FOR 360 DAYS. 4 025 Active Problems Problem Noted Date Diagnosed Date CKD (chronic kidney disease) stage 4, GFR 15-29 ml/min (CMS/[facility] V24, CMS/[facility] V28) 2024 Atrial fibrillation (CMS/[facility] V24, CMS/[facility] V28) 0 03/26/2022 Assessment & Plan (10/23/2024 12:41 PM [...] lead Obstructive sleep apnea 01/29/2022 Overview (08/31/2024): [facility] diagnostic polysomnogram 01/13/2022. Weight 166; BMI 28.AHI [...] Orders: ECG 12 lead Ascending aorta dilatation ([facility] V24) 016 Overview (08/31/2024): 3.7 cm by echo 07/14. CT 1 yr 09/14 echo normal aorta. Mild diastolic dysfunction. Normal EF Stasis eczema 08/26/2015 Nuclear sclerosis 03/22/2015 Overview (08/31/2024): Dr Carpio report 06/14/06 Controlled type 2 diabetes m ellitus with renal manifestation (CMS/HCC V24, CMS/HCC V28) 03/15/2014 Overview (08/31/2024): A1C 7.7, Microalbumin 263 and GFR 40 on 02/08/14. Type 2 diabetes mellitus wit h neurological manifestations, controlled (CMS/HCC V24, CMS/HCC V28) 03/15/2014 Overview (08/31/2024): Foot neuropathy. GERD (gastroesophageal reflux disease) 2 Overview (08/31/2024): Barium swallow 11/09 Shoulder pain 07/23/2008 Overview (08/31/2024): right Murmur 03/29/2008 Overview (08/31/2024): Echo 07/05--mild to mod AI, Stable 01/08 07/14 mild AI. Osteopenia 11/11/2007 Overview (08/31/2024): Stable by bone density 11/05--progression borderline osteoporosis [...] than 70 mg/dL. Microalbuminuria 01/12/2006 Diabetic polyneuropathy ([facility]/HCC V24, CMS/[facility] V2 8) 01/12/2006 Assessment & Plan (10/23/2024 12:41 PM EST): I defer management of diabetes with complications to the primary care team Essential hypertension, benign 09/07/2005 Hypothyroidism 09/07/2005 Resolved Problems Problem Noted Date Diagnosed Date Resolved Date CKD (chronic kidney disease) , stage III (CMS/HCC V24, CMS/HCC V28) 08/12/2004 2024 Assessment & Plan (10/23/2024 12:41 PM EST): Followed by Dr. Colvin. Patient is treated with low-dose Eliquis. Encounters Date Type Department Care Team Description 01/25/2025 Telephone [facility] [address] [place] [address] Albert Webber NP 01/20/2025 Lab Requisition [facility] [address] [place] [address] Tyree Amador MD Chronic kidney disease, unspecified; Type 2 diabetes mellitus with hyperglycemia ([facility]/HCC V24, [facility]/HCC V28) 01/17/2025 Lab Requisition [facility] [address] [place] [phone] Tyree Amador MD Type 2 diabetes mellitus with hyperglycemia (CMS/HCC V24, CMS/HCC V28); Chronic kidney disease, unspecified 01/17/[address] [phone] Anil Bettencourt MD Hospital Follow-up 01/13/2025 Lab Requisition [facility] [address] [place] [phone] Tyree Amador MD Chronic kidney disease, unspecified; Type 2 diabetes mellitus with hyperglycemia (CMS/HCC V24, CMS/HCC V28) 01/10/2025 Lab Requisition [facility] [address] [place] [phone] Tyree Amador MD Type 2 diabetes mellitus with hyperglycemia ([facility]/HCC V24, CMS/HCC V28); Chronic kidney disease, unspecified 01/08/[address] [phone] Anil Bettencourt MD Faxed Order [id number] 01/08/[address] [phone] Anil Bettencourt MD Faxed Order [id number] 01/06/[address] [facility] [address] [place] [address] Tyree Amador MD Type 2 diabetes mellitus with hyperglycemia ([facility] V24, [facility] V28); Chronic kidney disease, unspecified 01/04/2025 Lab Requisition [facility] [address] [place] [phone] 01/04/2025 Lab Requisition [facility] [address] [place] [phone] Tyree Amador MD Chronic kidney disease, unspecified from Last 3 Months Immunizations Name Administration [...] Bivalent, Or iginal + Ba.1 (Non-US Trademark COMIRNATY Bivalent) 11/16/2022 Pneumococcal conjugate 13 va lent [...] Abnormal mammogram 12/16/2001 KAI (acute kidney injury) ([facility] V24) Anemia Astigmatism 04/2005 C. difficile colitis Candidiasis [...] age-related cataract type, unspecified laterality 05/07/2004 Sepsis ([facility] V24, [facility] V28) Sleep apnea Symptomatic menopausal or fe male climacteric states 06/19/2002 Type II or unspecified type diabetes mellitus with renal manifestations, uncontrolled(250.42) ([facility] V24, [facility] V28) 03/15/2014 Type II or unspecified type diabetes mellitus with ketoacidosis, uncontrolled(250.12) ([facility] V24, [facility] V28) 06/04/2005 mellitus without mention of complication, not stated as uncontrolled Hypothyroidism [...] for your loved ones. For example, children's aide or elderly care for an older adult? [...] 12/05/2024 10:23 AM EST Plan of Treatment Health Maintenance Due Date Last Done Comments Hepatitis A Vaccines (1 of 2 - Risk 2-dose series) 1964 Hepatitis B Vaccines (1 of 3 - Risk 3-dose series) 2005 Zoster Vaccines (2 of 3) 02/13/2011 2010 RSV Immunization Adult Patients (1 - 1-dose 75+ series) 2020 Medicare [...] age to complete this topic Meningococcal B Vaccine Aged Out No l onger eligible based on patient's age to complete [...] 5:38 AM EST Chronic kidney disease, unspecified HEMOGLOBIN A1C Routine 11/11/2024 6:47 AM EST Encounter for other general examination HM FALLS RISK ASSESSMENT Routine 05/25/2024 LIPID PANEL Routine 05/19/2024 HM URINE ALBUMIN CREATININE RATIO Routine 05/11/2024 DIABETES [...] 6:08 AM EST) Only the most recent of5 resultswithin the time period is included. WBC 9.8 4.8 - 10.8 K/mcL LAB HEMETOLOGY METHOD 01/18/2025 9:41 AM [facility] RBC 2.70(L) 3.80 - 4.80 M/mcL LAB HEMETOLOGY METHOD 01/18/2025 9:41 AM [facility] Hemoglobin 8.2(L) 11.5 - 16.0 g/dL LAB HEMETOLOGY METHOD 01/18/2025 9:41 AM [facility] Hematocrit 26.2(L) 35.0 - 47.0 % LAB HEMETOLOGY METHOD 01/18/2025 9:41 AM [facility] MCV 96.0 79.0 - 98.0 FL LAB HEMETOLOGY METHOD 01/18/2025 9:41 AM [facility] MCH 30.0 27.0 - 32.0 pcg LAB HEMETOLOGY METHOD 01/18/2025 9:41 AM [facility] MCHC 31.3(L) 32.0 - 37.0 g/dL LAB HEMETOLOGY METHOD 01/18/2025 9:41 AM [facility] RDW 14.3 11.0 - 15.0 % LAB HEMETOLOGY METHOD 01/18/2025 9:41 AM EST [facility] Platelets 207 130 - 400 K/mcL LAB HEMETOLOGY METHOD 01/18/2025 9:41 AM EST [facility] MPV 11.1(H) 7.0 - 11.0 FL LAB HEMETOLOGY METHOD 01/18/2025 9:41 AM EST [facility] NRBC 0.0 <1.0 % LAB HEMETOLOGY METHOD 01/18/2025 9:41 AM EST [facility] NRBC Absolute 0.00 <0.10 K/mcL LAB HEMETOLOGY METHOD 01/18/2025 9:41 AM [facility] Blood Venous blood specimen / Unknown 01/18/2025 6:08 AM EST 01/18/2025 9:21 AM EST us Tyree Amador MD LAB BLOOD ORDERABLES Final Resu lt [facility] [address] [place] [address], * (ABNORMAL) Basic metabolic panel (01/18/2025 5:08 AM EST) Only the most recent of3 resultswithin the time period is included. Sodium 140 133 - 145 mmol/L LAB CHEMISTRY METHOD 01/18/2025 9:50 AM [facility] Potassium 3.6 3.5 - 5.5 mmol/L LAB CHEMISTRY METHOD 01/18/2025 9:50 AM [facility] Chloride 106 96 - 110 mmol/L LAB CHEMISTRY METHOD 01/18/2025 9:50 AM [facility] CO2 24 21 - 32 mmol/L LAB CHEMISTRY METHOD 01/18/2025 9:50 AM [facility] Anion Gap 10 3 - 11 LAB CHEMISTRY METHOD 01/18/2025 9:50 AM EST [facility] Glucose 122(H) 70 - 100 mg/dL LAB CHEMISTRY METHOD 01/18/2025 9:50 AM [facility] BUN 43(H) 5 - 25 mg/dL LAB CHEMISTRY METHOD 01/18/2025 9:50 AM [facility] Creatinine 2.82(H) 0.50 - 1.10 mg/dL LAB CHEMISTRY METHOD 01/18/2025 9:50 AM [facility] eGFR 17(L) >=60 mL/min/1. 73m2 LAB CHEMISTRY METHOD 01/18/2025 9:50 AM [facility] Comment:Calculation based on the??Chronic Kidney Disease Epidemiology Collaboration (CKD-EPI) equation refit??without adjustment for race. BUN/Creatinine Ratio 15.2 LAB CHEMISTRY METHOD 01/18/2025 9:50 AM [facility] Calcium 8.3(L) 8.5 - 10.5 mg/dL LAB CHEMISTRY METHOD 01/18/2025 9:50 AM [facility] Blood Venous blood specimen / Unknown 01/18/2025 5:08 AM EST 01/18/2025 9:20 AM EST us Tyree Amador MD LAB BLOOD ORDERABLES Final Resu lt [facility] [address] [place] [address], * (ABNORMAL) Comprehensive metabolic panel (01/15/2025 6:08 AM EST) Only the most recent of2 resultswithin the time period is included. Sodium 143 133 - 145 mmol/L LAB CHEMISTRY METHOD 01/15/2025 10:44 AM [facility] Potassium 4.0 3.5 - 5.5 mmol/L LAB CHEMISTRY METHOD 01/15/2025 10:44 AM [facility] Comment:Hemolysis present Chloride 109 96 - 110 mmol/L LAB CHEMISTRY METHOD 01/15/2025 10:44 AM [facility] CO2 25 21 - 32 mmol/L LAB CHEMISTRY METHOD 01/15/2025 10:44 AM [facility] Anion Gap 9 3 - 11 LAB CHEMISTRY METHOD 01/15/2025 10:44 AM [facility] Glucose 123(H) 70 - 100 mg/dL LAB CHEMISTRY METHOD 01/15/2025 10:44 AM [facility] BUN 42(H) 5 - 25 mg/dL LAB CHEMISTRY METHOD 01/15/2025 10:44 AM [facility] Creatinine 2.88(H) 0.50 - 1.10 mg/dL LAB CHEMISTRY METHOD 01/15/2025 10:44 AM [facility] eGFR 16(L) >=60 mL/min/1. 73m2 LAB CHEMISTRY METHOD 01/15/2025 10:44 AM [facility] Comment:Calculation based on the??Chronic Kidney Disease Epidemiology Collaboration (CKD-EPI) equation refit??without adjustment for race. BUN/Creatinine Ratio 14.6 LAB CHEMISTRY METHOD 01/15/2025 10:44 AM [facility] Calcium 8.5 8.5 - 10.5 mg/dL LAB CHEMISTRY METHOD 01/15/2025 10:44 AM [facility] AST (SGOT) 21 10 - 42 unit/L LAB CHEMISTRY METHOD 01/15/2025 10:44 AM [facility] Comment:Hemolysis present ALT (SGPT) 12 10 - 60 unit/L LAB CHEMISTRY METHOD 01/15/2025 10:44 AM [facility] Alkaline Phosphatase 157(H) 42 - 121 unit/L LAB CHEMISTRY METHOD 01/15/2025 10:44 AM [facility] Total Protein 6.4 6.0 - 8.0 g/dL LAB CHEMISTRY METHOD 01/15/2025 10:44 AM [facility] Albumin 3.0(L) 3.2 - 5.0 g/dL LAB CHEMISTRY METHOD 01/15/2025 10:44 AM EST [facility] Total Bilirubin 0.7 0.0 - 1.4 mg/dL LAB CHEMISTRY METHOD 01/15/2025 10:44 AM EST [facility] Blood Venous blood specimen / Unknown Venipuncture / Unknown 01/15/2025 6:08 AM EST 01/15/2025 9:46 AM EST Tyree Amador MD LAB BLOOD ORDERABLES Final Resu lt [facility] [address] [place] [address], [place] [phone] * (ABNORMAL) Hemoglobin A1c (11/11/2024 6:47 AM EST) Pathologist [facility] Hemoglobin A1C 6.7(H) <6.5 % LAB CHEMISTRY METHOD 11/12/2024 8:18 AM EST [facility] Mean Bld Glu Estim. 146 mg/dL LAB CHEMISTRY METHOD 11/12/2024 8:18 AM EST [facility] Blood Venous blood specimen / Unknown Venipuncture / Unknown 11/11/2024 6:47 AM EST 11/11/2024 10:56 AM EST Horace Solomon MD LAB BLOOD ORDERABLES Final Res ult [facility] [address] [place] [address], [place] [phone] * Hm Falls Risk Assessment (05/25/2024) Pathologist [facility] Falls Risk Assessment abstracted Phyllis Bishop MD HEALTH MAINTENANCE Final Result * (ABNORMAL) Lipid panel (05/19/2024) Pathologist [facility] LDL/HDL Ratio 7(A) 0 - 4 Triglycerides 468(A) 0 - 150 mg/dL Cholesterol 201(A) 0 - 200 mg/dL HDL 27(A) >=40 mg/dL LDL Cholesterol 81 0 - 100 mg/dL Blood Venous blood specimen / Unknown Result [facility] LAB BLOOD ORDERABLES Yady l Result * Urine Albumin Creatinine Ratio (05/11/2024) [facility] Urine Albumin Creatinine Ratio abstracted Result [facility] HEALTH MAINTENANCE Final Result * Diabetes Eye Exam (01/18/2024) [facility] Diabetes: Annual Retina Eye Exam abstracted Result [facility] HEALTH MAINTENANCE Final Result * Diabetes Foot Exam (11/18/2023) [facility] Diabetes: Annual Foot Exam abstracted Result [facility] HEALTH MAINTENANCE Final Result * DXA BONE [...] (World Health Organization Fracture Risk Assessment) [facility] Department of Internal Medicine recommends using National [...] (World Health Organization Fracture Risk Assessment) [facility] Department of Internal Medicine recommendsusing National Osteoporosis [...] Res ult * Hepatitis C Screening (10/12/2013) [facility] Hepatitis C Screening abstracted Historical Provider HEALTH MAINTENANCE Final Result from Last 3 Months or Most Recently Relevant to Health Maintenance Insurance MEDICARE [facility] Advance Directives Documents on File Type Date Recorded Patient Commission Sales Associate Expl anation Health Care Decision (hx) 03/24/2024 [...] (hx) 06/07/2021 AD NAGEL DIRECTIVE Care Teams Printing Technician Relationship Specialty Start Date End Date Anil Bettencourt MD [address] [place] [id number] PCP - General 08/02/01
--- OUTSIDE RECORDS SUMMARY | 2025-03-22 05:58 | XMS_ITS | Encounter Summary ---
Author Organization [facility] Address [address] [place] [address] Care Team Providers Care Steamer Operator Name Role Phone Anil Bettencourt MD Primary Care Provider [phone] Encounter Details Date Type Department Care Team ([facility] Contact Info) Description 11/11/2024 Lab Requisition [facility] - Main Lab [address] [place] [address] Horace Solomon MD [address] [place] [phone] Encounter for other general examination Social History [...] your loved ones. For example, child development director or elderly care for an older [...] K/mcL LAB HEMETOLOGY METHOD 11/11/2024 1:40 PM [facility] RBC 3.20(L) 3.80 - 4.80 M/mcL LAB HEMETOLOGY METHOD 11/11/2024 1:40 PM [facility] Hemoglobin 9.7(L) 11.5 - 16.0 g/dL LAB HEMETOLOGY METHOD 11/11/2024 1:40 PM [facility] Hematocrit 30.3(L) 35.0 - 47.0 % LAB HEMETOLOGY METHOD 11/11/2024 1:40 PM [facility] MCV 93.5 79.0 - 98.0 FL LAB HEMETOLOGY METHOD 11/11/2024 1:40 PM [facility] MCH 29.9 27.0 - 32.0 pcg LAB HEMETOLOGY METHOD 11/11/2024 1:40 PM [facility] MCHC 32.0 32.0 - 37.0 g/dL LAB HEMETOLOGY METHOD 11/11/2024 1:40 PM [facility] RDW 13.3 11.0 - 15.0 % LAB HEMETOLOGY METHOD 11/11/2024 1:40 PM [facility] Platelets 313 130 - 400 K/mcL LAB HEMETOLOGY METHOD 11/11/2024 1:40 PM [facility] MPV 10.5 7.0 - 11.0 FL LAB HEMETOLOGY METHOD 11/11/2024 1:40 PM [facility] NRBC 0.0 <1.0 % LAB HEMETOLOGY METHOD 11/11/2024 1:40 PM [facility] NRBC Absolute 0.00 <0.10 K/mcL LAB HEMETOLOGY METHOD 11/11/2024 1:40 PM [facility] Neutrophils Relative 75.5 % LAB HEMETOLOGY METHOD 11/11/2024 1:40 PM [facility] Lymphocytes Relative 10.7 % LAB HEMETOLOGY METHOD 11/11/2024 1:40 PM [facility] Monocytes Relative 9.9 % LAB HEMETOLOGY METHOD 11/11/2024 1:40 PM [facility] Eosinophils Relative 1.5 % LAB HEMETOLOGY METHOD 11/11/2024 1:40 PM [facility] Basophils Relative 1.1 % LAB HEMETOLOGY METHOD 11/11/2024 1:40 PM [facility] Immature Granulocytes Relative 1.3 % LAB HEMETOLOGY METHOD 11/11/2024 1:40 PM [facility] Neutrophils Absolute 5.64 1.50 - 7.00 K/mcL LAB HEMETOLOGY METHOD 11/11/2024 1:40 PM [facility] Lymphocytes Absolute 0.80(L) 1.00 - 5.00 K/mcL LAB HEMETOLOGY METHOD 11/11/2024 1:40 PM [facility] Monocytes Absolute 0.74 0.20 - 1.00 K/mcL LAB HEMETOLOGY METHOD 11/11/2024 1:40 PM EST [facility] Eosinophils Absolute 0.11 0.00 - 0.50 K/mcL LAB HEMETOLOGY METHOD 11/11/2024 1:40 PM EST [facility] Basophils Absolute 0.08 0.00 - 0.20 K/mcL LAB HEMETOLOGY METHOD 11/11/2024 1:40 PM EST [facility] Immature Granulocytes Absolute 0.10(H) 0.00 - 0.03 K/[facility] LAB HEMETOLOGY METHOD 11/11/2024 1:40 PM EST [facility] Blood Venous blood specimen / Unknown Venipuncture / Unknown 11/11/2024 6:47 AM EST 11/11/2024 10:56 AM EST Horace Solomon MD LAB BLOOD ORDERABLES Final Res ult [facility] [address] [place] [address], [place] [phone] * (ABNORMAL) Hemoglobin A1c (11/11/2024 6:47 AM EST) Hemoglobin A1C 6.7(H) <6.5 % LAB CHEMISTRY METHOD 11/12/2024 8:18 AM EST [facility] Mean Bld Glu Estim. 146 mg/dL LAB CHEMISTRY METHOD 11/12/2024 8:18 AM EST [facility] Blood Venous blood specimen / Unknown Venipuncture / Unknown 11/11/2024 6:47 AM EST 11/11/2024 10:56 AM EST Horace Solomon MD LAB BLOOD ORDERABLES Final Res ult [facility] [address] [place] [address], [place] [phone] * (ABNORMAL) Magnesium (11/11/2024 6:47 AM EST) Magnesium 1.7(L) 1.9 - 2.6 mg/dL LAB CHEMISTRY METHOD 11/11/2024 12:37 PM [facility] Blood Venous blood specimen / Unknown Venipuncture / Unknown 11/11/2024 6:47 AM EST 11/11/2024 10:56 AM EST us Horace Solomon MD LAB BLOOD ORDERABLES Final Res ult [facility] [address] [place] [address], [place] [phone] * (ABNORMAL) Comprehensive metabolic panel (11/11/2024 6:47 AM EST) Pathologist [facility] Sodium 141 133 - 145 mmol/L LAB CHEMISTRY METHOD 11/11/2024 12:37 PM [facility] Potassium 4.2 3.5 - 5.5 mmol/L LAB CHEMISTRY METHOD 11/11/2024 12:37 PM [facility] Chloride 107 96 - 110 mmol/L LAB CHEMISTRY METHOD 11/11/2024 12:37 PM [facility] CO2 23 21 - 32 mmol/L LAB CHEMISTRY METHOD 11/11/2024 12:37 PM [facility] Anion Gap 11 3 - 11 LAB CHEMISTRY METHOD 11/11/2024 12:37 PM [facility] Glucose 147(H) 70 - 100 mg/dL LAB CHEMISTRY METHOD 11/11/2024 12:37 PM [facility] BUN 63(H) 5 - 25 mg/dL LAB CHEMISTRY METHOD 11/11/2024 12:37 PM [facility] Creatinine 3.11(H) 0.50 - 1.10 mg/dL LAB CHEMISTRY METHOD 11/11/2024 12:37 PM [facility] eGFR 15(L) >=60 mL/min/1. 73m2 LAB CHEMISTRY METHOD 11/11/2024 12:37 PM [facility] Comment:Calculation based on the??Chronic Kidney Disease Epidemiology Collaboration (CKD-EPI) equation refit??without adjustment for race. BUN/Creatinine Ratio 20.3 LAB CHEMISTRY METHOD 11/11/2024 12:37 PM [facility] Calcium 8.6 8.5 - 10.5 mg/dL LAB CHEMISTRY METHOD 11/11/2024 12:37 PM [facility] AST (SGOT) 11 10 - 42 unit/L LAB CHEMISTRY METHOD 11/11/2024 12:37 PM [facility] ALT (SGPT) 6(L) 10 - 60 unit/L LAB CHEMISTRY METHOD 11/11/2024 12:37 PM [facility] Alkaline Phosphatase 134(H) 42 - 121 unit/L LAB CHEMISTRY METHOD 11/11/2024 12:37 PM [facility] Total Protein 6.7 6.0 - 8.0 g/dL LAB CHEMISTRY METHOD 11/11/2024 12:37 PM [facility] Albumin 3.1(L) 3.2 - 5.0 g/dL LAB CHEMISTRY METHOD 11/11/2024 12:37 PM [facility] Total Bilirubin 1.0 0.0 - 1.4 mg/dL LAB CHEMISTRY METHOD 11/11/2024 12:37 PM [facility] Blood Venous blood specimen / Unknown Venipuncture / Unknown 11/11/2024 6:47 AM EST 11/11/2024 10:56 AM EST us Horace Solomon MD LAB BLOOD ORDERABLES Final Res ult [facility] [address] [place] [address], [place] [phone] documented in this encounter Visit Diagnoses Diagnosis Encounter for other general examination documented in this encounter Additional Health Concerns Infection Onset Date Last Indicated Resolved Time Respiratory Rule-Out 11/26/2024 11/26/2024 024 6:03 PM EST Gastrointestinal Rule-Out 11/30/2024 11/30/2024 7:06 PM EST Assessment Noted Time PHQ-9 Depression Total Score: 0 10/30/20 24 10:57 PM EST documented as of this encounter Care Teams Steamer Operator Relationship Specialty Start Date End Date Anil Bettencourt MD [address] [place] [address] PCP - General 08/02/01 documented as of this encounter
--- OUTSIDE RECORDS SUMMARY | 2025-03-22 05:58 | XMS_ITS | Encounter Summary ---
Author Organization [facility] Address [address] [place] [address] Care Team Providers Care Salt Manager Name Role Phone Anil Bettencourt MD Primary Care Provider [phone] Encounter Details Date Type Department Care Team (Latest Contact Info) Description 01/13/2025 Lab Requisition [facility] - Main Lab [address] [place] [address] Tyree Amador MD [address] [place] [address] Chronic kidney disease, unspecified; Type 2 [...] your loved ones. For example, child and family counselor or elderly care for an older adult? [...] Type 2 diabetes mellitus with hyperglycemia (CMS/HCC) COMPREHENSIVE METABOLIC PANEL Routine 01/15/2025 6:08 AM EST Chronic kidney disease, unspecified Type 2 diabetes mellitus with hyperglycemia (CMS/HCC) documented in this encounter Results * (ABNORMAL) Comprehensive metabolic panel (01/15/2025 6:08 AM EST) Sodium 143 133 - 145 mmol/L LAB CHEMISTRY METHOD 01/15/2025 10:44 AM [facility] Potassium 4.0 3.5 - 5.5 mmol/L LAB CHEMISTRY METHOD 01/15/2025 10:44 AM [facility] Comment:Hemolysis present Chloride 109 96 - 110 mmol/L LAB CHEMISTRY METHOD 01/15/2025 10:44 AM [facility] CO2 25 21 - 32 mmol/L LAB CHEMISTRY METHOD 01/15/2025 10:44 AM [facility] Anion Gap 9 3 - 11 LAB CHEMISTRY METHOD 01/15/2025 10:44 AM [facility] Glucose 123(H) 70 - 100 mg/dL LAB CHEMISTRY METHOD 01/15/2025 10:44 AM [facility] BUN 42(H) 5 - 25 mg/dL LAB CHEMISTRY METHOD 01/15/2025 10:44 AM [facility] Creatinine 2.88(H) 0.50 - 1.10 mg/dL LAB CHEMISTRY METHOD 01/15/2025 10:44 AM [facility] eGFR 16(L) >=60 mL/min/1. 73m2 LAB CHEMISTRY METHOD 01/15/2025 10:44 AM [facility] Comment:Calculation based on the??Chronic Kidney Disease Epidemiology Collaboration (CKD-EPI) equation refit??without adjustment for race. BUN/Creatinine Ratio 14.6 LAB CHEMISTRY METHOD 01/15/2025 10:44 AM [facility] Calcium 8.5 8.5 - 10.5 mg/dL LAB CHEMISTRY METHOD 01/15/2025 10:44 AM [facility] AST (SGOT) 21 10 - 42 unit/L LAB CHEMISTRY METHOD 01/15/2025 10:44 AM [facility] Comment:Hemolysis present ALT (SGPT) 12 10 - 60 unit/L LAB CHEMISTRY METHOD 01/15/2025 10:44 AM [facility] Alkaline Phosphatase 157(H) 42 - 121 unit/L LAB CHEMISTRY METHOD 01/15/2025 10:44 AM [facility] Total Protein 6.4 6.0 - 8.0 g/dL LAB CHEMISTRY METHOD 01/15/2025 10:44 AM [facility] Albumin 3.0(L) 3.2 - 5.0 g/dL LAB CHEMISTRY METHOD 01/15/2025 10:44 AM [facility] Total Bilirubin 0.7 0.0 - 1.4 mg/dL LAB CHEMISTRY METHOD 01/15/2025 10:44 AM [facility] Blood Venous blood specimen / Unknown Venipuncture / Unknown 01/15/2025 6:08 AM EST 01/15/2025 9:46 AM EST us Tyree Amador MD LAB BLOOD ORDERABLES Final Resu lt [facility] [address] [place] [address], * (ABNORMAL) Complete blood count (01/15/2025 6:08 AM EST) WBC 6.1 4.8 - 10.8 K/mcL LAB HEMETOLOGY METHOD 01/15/2025 10:33 AM [facility] RBC 2.80(L) 3.80 - 4.80 M/mcL LAB HEMETOLOGY METHOD 01/15/2025 10:33 AM [facility] Hemoglobin 8.4(L) 11.5 - 16.0 g/dL LAB HEMETOLOGY METHOD 01/15/2025 10:33 AM [facility] Hematocrit 26.2(L) 35.0 - 47.0 % LAB HEMETOLOGY METHOD 01/15/2025 10:33 AM [facility] MCV 93.6 79.0 - 98.0 FL LAB HEMETOLOGY METHOD 01/15/2025 10:33 AM [facility] MCH 30.0 27.0 - 32.0 pcg LAB HEMETOLOGY METHOD 01/15/2025 10:33 AM [facility] MCHC 32.1 32.0 - 37.0 g/dL LAB HEMETOLOGY METHOD 01/15/2025 10:33 AM [facility] RDW 14.0 11.0 - 15.0 % LAB HEMETOLOGY METHOD 01/15/2025 10:33 AM [facility] Platelets 225 130 - 400 K/mcL LAB HEMETOLOGY METHOD 01/15/2025 10:33 AM [facility] MPV 11.8(H) 7.0 - 11.0 FL LAB HEMETOLOGY METHOD 01/15/2025 10:33 AM [facility] NRBC 0.0 <1.0 % LAB HEMETOLOGY METHOD 01/15/2025 10:33 AM [facility] NRBC Absolute 0.00 <0.10 K/mcL LAB HEMETOLOGY METHOD 01/15/2025 10:33 AM [facility] Blood Venous blood specimen / Unknown Venipuncture / Unknown 01/15/2025 6:08 AM EST 01/15/2025 9:50 AM EST us Tyree Amador MD LAB BLOOD ORDERABLES Final Resu lt [facility] [address] [place] [address], [place] [phone] documented in this encounter Visit Diagnoses Diagnosis Chronic kidney disease, unspecified Type 2 diabetes mellitus with hyperglycemia (CMS/HCC V24, CMS/HCC V28) documented in this encounter Additional Health Concerns Assessment Noted Time PHQ-9 Depression Total Score: 0 10/30/20 24 10:57 PM EST documented as of this encounter Care Teams Salt Manager Relationship Specialty Start Date End Date Anil Bettencourt MD [address] [place] [id number] PCP - General 08/02/01 documented as of this encounter
[2025-03-22 06:32] LABS: Basophils Absolute Auto 0.1 X10*3/uL (0.0-0.2); Eosinophils Absolute Auto 0.2 X10*3/uL (0.0-0.4); Eosinophils Percent Auto 2.3 % (0-4); Hematocrit 25.6 % (37.0-47.0); Hemoglobin 8.5 g/dl (12.0-16.0); Imm Gran Abs Auto 0.07 X10*3/uL (0.00-0.03); Lymphocytes Absolute Auto 0.8 X10*3/uL (1.2-4.9); Lymphocytes Percent Auto 11.4 % (20-40); Mean Corpuscular HGB Conc 33.2 g/dl (31.0-35.0); Mean Corpuscular Hemoglobin 29.1 pg (27.0-33.0); Mean Corpuscular Volume 87.7 fL (80.0-98.0); Mean Platelet Volume 10.7 fL (9.4-12.3); Monocytes Absolute Auto 0.4 X10*3/uL (0.1-1.2); Monocytes Percent Auto 5.6 % (2-11); Neutrophils Absolute Auto 5.6 x10*3/uL (2.0-8.3); Neutrophils Percent Auto 78.7 % (45-73); Platelet Count 150 X10*3/uL (160-400); Red Blood Count 2.92 X10*6/uL (4.20-5.50); Red Cell Distribution Width 16.5 % (11.0-16.0); White Blood Count 7.1 X10*3/uL (4.8-10.8)
[2025-03-22 06:36] LABS: Estimated Average Glucose 105 mg/dL; Hemoglobin A1c % 5.3 % (<6.0); Total Hemoglobin (HGBA1C) 2290.6727 umol/L
[2025-03-22 06:46] LABS: Alanine Aminotransferase < 6 U/L (0-31); Albumin Level 2.9 g/dL (3.5-5.0); Alkaline Phosphatase 156 U/L (39-117); Anion Gap 15 (12-20); Aspartate Amino Transferase 26 U/L (5-31); Bilirubin Total 0.8 mg/dL (0.0-1.0); Blood Urea Nitrogen 31 mg/dL (9-16); Calcium 7.8 mg/dL (8.4-10.2); Carbon Dioxide 26 mmol/L (22-29); Chloride 101 mmol/L (96-108); Estimated Glomerular Filt Rate 15; Glucose Random 78 mg/dL (60-115); Potassium 3.5 mmol/L (3.3-5.1); Sodium 138 mmol/L (135-145)
== END 2025-03-22 05:56 | disposition home or self-care (01) ==
LOC: HO.MMNH2L 05:55
PROVIDERS: Visit Provider Student in an Organized Health Care Education/Training Program
DX: E11.9 Type 2 diabetes mellitus without complications (principal); N18.6 End stage renal disease
CPT/HCPCS: 36415; 80053; 83036; 85025

== ENCOUNTER 2025-03-26 05:47 | Outpatient (REF) | payer MEDICARE, SELFPAY ==
[2025-03-26 05:48] LABS: MANUAL DIFF FLAG NO
--- OUTSIDE RECORDS SUMMARY | 2025-03-26 05:50 | XMS_ITS | Encounter Summary ---
Author Organization [facility] Address [address] [place] [address] Care Team Providers Care Director Of Marketing [employer] Performance Ads Name Role Phone Anil Bettencourt MD Primary Care Provider [phone] Encounter Details Date Type Department Care Team (Latest Contact Info) Description 01/06/2025 Lab Requisition [facility] - Main Lab [address] [place] [address] Tyree Amador MD [address] [place] [phone] Type 2 diabetes mellitus with hyperglycemia [...] your loved ones. For example, early childhood services coordinator or elderly care for an older [...] EST Type 2 diabetes mellitus with hyperglycemia ([facility]/HCC) Chronic kidney disease, unspecified BASIC METABOLIC PANEL Routine 01/08/2025 6:08 AM EST Type 2 diabetes mellitus with hyperglycemia ([facility]/HCC) Chronic kidney disease, unspecified documented in this encounter Results * (ABNORMAL) Complete blood count (01/08/2025 6:09 AM EST) WBC 6.4 4.8 - 10.8 K/mcL LAB HEMETOLOGY METHOD 01/08/2025 2:[address] [facility] RBC 3.00(L) 3.80 - 4.80 M/mcL LAB HEMETOLOGY METHOD 01/08/2025 2:[address] [facility] Hemoglobin 8.8(L) 11.5 - 16.0 g/dL LAB HEMETOLOGY METHOD 01/08/2025 2:[address] [facility] Hematocrit 27.9(L) 35.0 - 47.0 % LAB HEMETOLOGY METHOD 01/08/2025 2:[address] [facility] MCV 94.6 79.0 - 98.0 FL LAB HEMETOLOGY METHOD 01/08/2025 2:[address] [facility] MCH 29.8 27.0 - 32.0 pcg LAB HEMETOLOGY METHOD 01/08/2025 2:[address] [facility] MCHC 31.5(L) 32.0 - 37.0 g/dL LAB HEMETOLOGY METHOD 01/08/2025 2:[address] [facility] RDW 14.0 11.0 - 15.0 % LAB HEMETOLOGY METHOD 01/08/2025 2:[address] [facility] Platelets 253 130 - 400 [...] K/mcL LAB HEMETOLOGY METHOD 01/08/2025 2:[address] [facility] Blood Venous blood specimen / Unknown Venipuncture / Unknown 01/08/2025 6:09 AM EST 01/08/2025 1:30 PM EST Tyree Amador MD LAB BLOOD ORDERABLES Final Resu lt [facility] [address] [place] [address], [place] [phone] * (ABNORMAL) Basic metabolic panel (01/08/2025 6:08 AM EST) Sodium 142 133 - 145 mmol/L LAB CHEMISTRY METHOD 01/08/2025 4:[address] [facility] Potassium 3.7 3.5 - 5.5 mmol/L LAB CHEMISTRY METHOD 01/08/2025 4:[address] [facility] Chloride 108 96 - 110 mmol/L LAB CHEMISTRY METHOD 01/08/2025 4:[address] [facility] CO2 23 21 - 32 mmol/L LAB CHEMISTRY METHOD 01/08/2025 4:[address] [facility] Anion Gap 11 3 - 11 LAB CHEMISTRY METHOD 01/08/2025 4:[address] [facility] Glucose 93 70 - 100 mg/dL LAB CHEMISTRY METHOD 01/08/2025 4:38 PM EST [facility] BUN 41(H) 5 - 25 mg/dL LAB CHEMISTRY METHOD 01/08/2025 4:[address] [facility] Creatinine 2.58(H) 0.50 - 1.10 mg/dL LAB CHEMISTRY METHOD 01/08/2025 4:[address] [facility] eGFR 18(L) >=60 mL/min/1. 73m2 LAB CHEMISTRY METHOD 01/08/2025 4:[address] [facility] Comment:Calculation based on the??Chronic Kidney Disease Epidemiology Collaboration (CKD-EPI) equation refit??without adjustment for race. BUN/Creatinine Ratio 15.9 LAB CHEMISTRY METHOD 01/08/2025 4:[address] [facility] Calcium 8.6 8.5 - 10.5 mg/dL LAB CHEMISTRY METHOD 01/08/2025 4:[address] [facility] Blood Venous blood specimen / Unknown Venipuncture / Unknown 01/08/2025 6:08 AM EST 01/08/2025 1:32 PM EST us Tyree Amador MD LAB BLOOD ORDERABLES Final Resu lt [facility] [address] [place] [address], documented in this encounter Visit Diagnoses Diagnosis Type 2 diabetes mellitus with hyperglycemia (CMS/HCC V24, CMS/HCC V28) Chronic kidney disease, unspecified documented in this encounter Additional Health Concerns Assessment Noted Time PHQ-9 Depression Total Score: 0 10/30/20 24 10:57 PM EST documented as of this encounter Care Teams Director Of Marketing [employer] Performance Ads Relationship Specialty Start Date End Date Anil Bettencourt MD [address] [place] [address] PCP - General 08/02/01 documented as of this encounter
--- OUTSIDE RECORDS SUMMARY | 2025-03-26 05:50 | XMS_ITS | Encounter Summary ---
Author Organization [facility] Address [address] [place] [address] Care Team Providers Care Joist Setter Name Role Phone Anil Bettencourt MD Primary Care Provider Encounter Details Date Type Department Care Team ([facility] Contact Info) Description 11/20/2024 Lab Requisition [facility] - Main Lab [address] [place] [address] Horcae Solomon MD [address] [place] [address] Encounter for other general examination Social History [...] for your loved ones. For example, child day care center worker or elderly care for an older [...] K/mcL LAB HEMETOLOGY METHOD 11/20/2024 11:01 AM [facility] RBC 2.80(L) 3.80 - 4.80 M/mcL LAB HEMETOLOGY METHOD 11/20/2024 11:01 AM [facility] Hemoglobin 8.4(L) 11.5 - 16.0 g/dL LAB HEMETOLOGY METHOD 11/20/2024 11:01 AM [facility] Hematocrit 25.4(L) 35.0 - 47.0 % LAB HEMETOLOGY METHOD 11/20/2024 11:01 AM [facility] MCV 91.4 79.0 - 98.0 FL LAB HEMETOLOGY METHOD 11/20/2024 11:01 AM [facility] MCH 30.2 27.0 - 32.0 pcg LAB HEMETOLOGY METHOD 11/20/2024 11:01 AM [facility] MCHC 33.1 32.0 - 37.0 g/dL LAB HEMETOLOGY METHOD 11/20/2024 11:01 AM [facility] RDW 13.2 11.0 - 15.0 % LAB HEMETOLOGY METHOD 11/20/2024 11:01 AM [facility] Platelets 335 130 - 400 K/mcL LAB HEMETOLOGY METHOD 11/20/2024 11:01 AM [facility] MPV 10.3 7.0 - 11.0 [...] [facility] [address] [place] [address], [place] [phone] * (ABNORMAL) Basic metabolic panel (11/20/2024 6:45 AM EST) Sodium 137 133 - 145 mmol/L LAB CHEMISTRY METHOD 11/20/2024 11:21 AM [facility] Potassium 3.7 3.5 - 5.5 mmol/L LAB CHEMISTRY METHOD 11/20/2024 11:21 AM [facility] Chloride 101 96 - 110 mmol/L LAB CHEMISTRY METHOD 11/20/2024 11:21 AM [facility] CO2 29 21 - 32 mmol/L LAB CHEMISTRY METHOD 11/20/2024 11:21 AM [facility] Anion Gap 7 3 - 11 LAB CHEMISTRY METHOD 11/20/2024 11:21 AM [facility] Glucose 110(H) 70 - 100 mg/dL LAB CHEMISTRY METHOD 11/20/2024 11:21 AM [facility] BUN 68(H) 5 - 25 mg/dL LAB CHEMISTRY METHOD 11/20/2024 11:21 AM [facility] Creatinine 3.68(H) 0.50 - 1.10 [...] mg/dL LAB CHEMISTRY METHOD 11/20/2024 11:21 AM [facility] Blood Venous blood specimen / Unknown Venipuncture / Unknown 11/20/2024 6:45 AM EST 11/20/2024 8:25 AM EST us Horace Solomon MD LAB BLOOD ORDERABLES Final Res ult [facility] [address] [place] [address], documented in this encounter Visit Diagnoses Diagnosis Encounter for other general examination documented in this encounter Additional Health Concerns Infection Onset Date Last Indicated Resolved Time Respiratory Rule-Out 11/26/2024 11/26/2024 024 6:03 PM EST Gastrointestinal Rule-Out 11/30/2024 11/30/2024 7:06 PM EST Assessment Noted Time PHQ-9 Depression Total Score: 0 10/30/20 24 10:57 PM EST documented as of this encounter Care Teams Joist Setter Relationship Specialty Start Date End Date Anil Bettencourt MD [address] [place] [phone] PCP - General 08/02/01 documented as of this encounter
--- OUTSIDE RECORDS SUMMARY | 2025-03-26 05:50 | XMS_ITS | Encounter Summary ---
Author Organization [facility] Address [address] [place] [address] Care Team Providers Care Computer Application Developer Name Role Phone Anil Bettencourt MD Primary Care Provider [phone] Encounter Details Date Type Department Care Team ([facility] Contact Info) Description 11/15/2024 Lab Requisition [facility] - Main Lab [address] [place] [address] Horace Solomon MD [address] [place] [address] Encounter for other general examination Social History [...] your loved ones. For example, child care supervisor or elderly care for an older adult? [...] LAB CHEMISTRY METHOD 11/15/2024 11:02 AM EST [facility] Blood Venous blood specimen / Unknown Venipuncture / Unknown 11/15/2024 5:15 AM EST 11/15/2024 9:57 AM EST us Horace Solomon MD LAB BLOOD ORDERABLES Final Res ult [facility] [address] [place] [address], documented in this encounter Visit Diagnoses Diagnosis Encounter for other general examination documented in this encounter Additional Health Concerns Infection Onset Date Last Indicated Resolved Time Respiratory Rule-Out 11/26/2024 11/26/2024 024 6:03 PM EST Gastrointestinal Rule-Out 11/30/2024 11/30/2024 7:06 PM EST Assessment Noted Time PHQ-9 Depression Total Score: 0 10/30/20 24 10:57 PM EST documented as of this encounter Care Teams Computer Application Developer Relationship Specialty Start Date End Date Anil Bettencourt MD [address] [place] [address] PCP - General 08/02/01 documented as of this encounter
--- OUTSIDE RECORDS SUMMARY | 2025-03-26 05:50 | XMS_ITS | Encounter Summary ---
Author Organization [facility] Address [address] [facility] [address] [place] [address] Phone Care Team Providers Care Home Appliance Washing Machine Mechanic Name Role Phone Jacques Cline MD Primary Care Provider [phone] Reason for Visit * Reason Comments Med Refill Encounter Details Date Type Department Care Team (Late st Contact Info) Description 11/04/2024 Refill [facility] [address] [facility] [address] [place] [address] Joel Colvin MD [address] [facility] [address] [place] [address] Social History Tobacco Use Types [...] on filedocumented in this encounter Care Teams Home Appliance Washing Machine Mechanic Relationship Specialty Start Date End Date Jacques Cline MD [address] [facility] [address] [place] [address] PCP - General Nephrology 04/29/22 documented as of this encounter
--- OUTSIDE RECORDS SUMMARY | 2025-03-26 05:50 | XMS_ITS | Clinical Summary ---
Author Organization [facility] [employer] [facility] Address [address] [place], [place] [address] Phone Care Team Providers Care Punchboard Stuffer Name Role Phone Anil Bettencourt MD Primary Care Provider [phone] Allergies Active Allergy Reactions Criticality Noted Date [...] stage 4, GFR 15-29 ml/min (CMS/[facility] V24, CMS/[facility] V28) 2024 Atrial fibrillation (CMS/[facility] V24, CMS/[facility] V28) 0 03/26/2022 Assessment & [...] lead Obstructive sleep apnea 01/29/2022 Overview (08/31/2024): [facility] diagnostic polysomnogram 01/13/2022. Weight 166; [...] Orders: ECG 12 lead Ascending aorta dilatation ([facility] V24) 016 Overview (08/31/2024): 3.7 [...] than 70 mg/dL. Microalbuminuria 01/12/2006 Diabetic polyneuropathy ([facility]/HCC V24, CMS/[facility] V2 8) 01/12/2006 Assessment & [...] Type Department Care Team Description 01/25/2025 Telephone [facility] Cardiology [facility] [address] [place] [address] Albert Webber NP 01/20/2025 Lab Requisition [facility] [address] [place] [address] Tyree Amador MD Chronic kidney disease, unspecified; Type 2 diabetes mellitus with hyperglycemia ([facility]/HCC V24, [facility]/HCC V28) 01/17/2025 Lab Requisition [facility] [address] [place] [phone] Tyree Amador MD Type 2 diabetes mellitus with hyperglycemia (CMS/HCC V24, CMS/HCC V28); Chronic kidney disease, unspecified 01/17/[address] [phone] Anil Bettencourt MD Hospital Follow-up 01/13/2025 Lab Requisition [facility] [address] [place] [phone] Tyree Amador MD Chronic kidney disease, unspecified; Type 2 diabetes mellitus with hyperglycemia (CMS/HCC V24, CMS/HCC V28) 01/10/2025 Lab Requisition [facility] [address] [place] [phone] Tyree Amador MD Type 2 diabetes mellitus with hyperglycemia ([facility]/HCC V24, CMS/HCC V28); Chronic kidney disease, unspecified 01/08/[address] [phone] Anil Bettencourt MD Faxed Order [id number] 01/08/[address] [phone] Anil Bettencourt MD Faxed Order [id number] 01/06/2025 Lab Requisition [facility] Lab [address] [place] [address] Tyree Amador MD Type 2 diabetes mellitus with hyperglycemia ([facility] V24, [facility] V28); Chronic kidney disease, unspecified 01/04/2025 Lab Requisition [facility] [address] [place] [phone] 01/04/2025 Lab Requisition [facility] [address] [place] [phone] Tyree Amador MD Chronic kidney disease, unspecified [...] Abnormal mammogram 12/16/2001 KAI (acute kidney injury) ([facility] V24) Anemia Astigmatism 04/2005 C. [...] age-related cataract type, unspecified laterality 05/07/2004 Sepsis ([facility] V24, [facility] V28) Sleep apnea Symptomatic menopausal or fe male climacteric states 06/19/2002 Type II or unspecified type diabetes mellitus with renal manifestations, uncontrolled(250.42) ([facility] V24, [facility] V28) 03/15/2014 Type II or unspecified type diabetes mellitus with ketoacidosis, uncontrolled(250.12) ([facility] V24, [facility] V28) 06/04/2005 mellitus without mention [...] K/mcL LAB HEMETOLOGY METHOD 01/18/2025 9:41 AM [facility] RBC 2.70(L) 3.80 - 4.80 M/mcL LAB HEMETOLOGY METHOD 01/18/2025 9:41 AM [facility] LAB Hemoglobin 8.2(L) 11.5 - 16.0 g/dL LAB HEMETOLOGY METHOD 01/18/2025 9:41 AM [facility] LAB Hematocrit 26.2(L) 35.0 - 47.0 % LAB HEMETOLOGY METHOD 01/18/2025 9:41 AM [facility] LAB MCV 96.0 79.0 - 98.0 FL LAB HEMETOLOGY METHOD 01/18/2025 9:41 AM [facility] LAB MCH 30.0 27.0 - 32.0 pcg LAB HEMETOLOGY METHOD 01/18/2025 9:41 AM [facility] LAB MCHC 31.3(L) 32.0 - 37.0 g/dL LAB HEMETOLOGY METHOD 01/18/2025 9:41 AM [facility] LAB RDW 14.3 11.0 - 15.0 % LAB HEMETOLOGY METHOD 01/18/2025 9:41 AM EST [facility] Platelets 207 130 - 400 K/mcL LAB HEMETOLOGY METHOD 01/18/2025 9:41 AM EST [facility] MPV 11.1(H) 7.0 - 11.0 FL LAB HEMETOLOGY METHOD 01/18/2025 9:41 AM EST [facility] NRBC 0.0 <1.0 % LAB HEMETOLOGY METHOD 01/18/2025 9:41 AM EST [facility] NRBC Absolute 0.00 <0.10 K/mcL LAB HEMETOLOGY METHOD 01/18/2025 9:41 AM [facility] LAB Blood Venous blood specimen / Unknown 01/18/2025 6:08 AM EST 01/18/2025 9:21 AM EST us Tyree Amador MD LAB BLOOD ORDERABLES Final Resu lt [facility] [address] [place] [address], * (ABNORMAL) Basic metabolic panel (01/18/2025 5:08 AM EST) Only the most recent of3 resultswithin the time period is included. Sodium 140 133 - 145 mmol/L LAB CHEMISTRY METHOD 01/18/2025 9:50 AM [facility] Potassium 3.6 3.5 - 5.5 mmol/L LAB CHEMISTRY METHOD 01/18/2025 9:50 AM [facility] Chloride 106 96 - 110 mmol/L LAB CHEMISTRY METHOD 01/18/2025 9:50 AM [facility] CO2 24 21 - 32 mmol/L LAB CHEMISTRY METHOD 01/18/2025 9:50 AM [facility] Anion Gap 10 3 - 11 LAB CHEMISTRY METHOD 01/18/2025 9:50 AM EST [facility] Glucose 122(H) 70 - 100 mg/dL LAB CHEMISTRY METHOD 01/18/2025 9:50 AM [facility] BUN 43(H) 5 - 25 mg/dL LAB CHEMISTRY METHOD 01/18/2025 9:50 AM [facility] Creatinine 2.82(H) 0.50 - 1.10 mg/dL LAB CHEMISTRY METHOD 01/18/2025 9:50 AM [facility] LAB eGFR 17(L) >=60 mL/min/1. 73m2 LAB CHEMISTRY METHOD 01/18/2025 9:50 AM [facility] LAB Comment:Calculation based on the??Chronic Kidney Disease Epidemiology Collaboration (CKD-EPI) equation refit??without adjustment for race. BUN/Creatinine Ratio 15.2 LAB CHEMISTRY METHOD 01/18/2025 9:50 AM [facility] Calcium 8.3(L) 8.5 - 10.5 mg/dL LAB CHEMISTRY METHOD 01/18/2025 9:50 AM [facility] Blood Venous blood specimen / Unknown 01/18/2025 5:08 AM EST 01/18/2025 9:20 AM EST us Tyree Amador MD LAB BLOOD ORDERABLES Final Resu lt [facility] [address] [place] [address], * (ABNORMAL) Comprehensive metabolic panel (01/15/2025 6:08 AM EST) Only the most recent of2 resultswithin the time period is included. Sodium 143 133 - 145 mmol/L LAB CHEMISTRY METHOD 01/15/2025 10:44 AM [facility] Potassium 4.0 3.5 - 5.5 mmol/L LAB CHEMISTRY METHOD 01/15/2025 10:44 AM [facility] LAB Comment:Hemolysis present Chloride 109 96 - 110 mmol/L LAB CHEMISTRY METHOD 01/15/2025 10:44 AM [facility] CO2 25 21 - 32 mmol/L LAB CHEMISTRY METHOD 01/15/2025 10:44 AM [facility] Anion Gap 9 3 - 11 LAB CHEMISTRY METHOD 01/15/2025 10:44 AM [facility] Glucose 123(H) 70 - 100 mg/dL LAB CHEMISTRY METHOD 01/15/2025 10:44 AM [facility] BUN 42(H) 5 - 25 mg/dL LAB CHEMISTRY METHOD 01/15/2025 10:44 AM [facility] Creatinine 2.88(H) 0.50 - 1.10 mg/dL LAB CHEMISTRY METHOD 01/15/2025 10:44 AM [facility] eGFR 16(L) >=60 mL/min/1. 73m2 LAB CHEMISTRY METHOD 01/15/2025 10:44 AM [facility] Comment:Calculation based on the??Chronic Kidney Disease Epidemiology Collaboration (CKD-EPI) equation refit??without adjustment for race. BUN/Creatinine Ratio 14.6 LAB CHEMISTRY METHOD 01/15/2025 10:44 AM [facility] Calcium 8.5 8.5 - 10.5 mg/dL LAB CHEMISTRY METHOD 01/15/2025 10:44 AM [facility] AST (SGOT) 21 10 - 42 unit/L LAB CHEMISTRY METHOD 01/15/2025 10:44 AM [facility] LAB Comment:Hemolysis present ALT (SGPT) 12 10 - 60 unit/L LAB CHEMISTRY METHOD 01/15/2025 10:44 AM [facility] Alkaline Phosphatase 157(H) 42 - 121 unit/L LAB CHEMISTRY METHOD 01/15/2025 10:44 AM [facility] Total Protein 6.4 6.0 - 8.0 g/dL LAB CHEMISTRY METHOD 01/15/2025 10:44 AM [facility] Albumin 3.0(L) 3.2 - 5.0 g/dL LAB CHEMISTRY METHOD 01/15/2025 10:44 AM EST [facility] Total Bilirubin 0.7 0.0 - 1.4 mg/dL LAB CHEMISTRY METHOD 01/15/2025 10:44 AM EST [facility] Blood Venous blood specimen / Unknown Venipuncture / Unknown 01/15/2025 6:08 AM EST 01/15/2025 9:46 AM EST Tyree Amador MD LAB BLOOD ORDERABLES Final Resu lt [facility] [address] [place] [address], [place] [phone] * (ABNORMAL) Hemoglobin A1c (11/11/2024 6:47 AM EST) Pathologist [facility] Hemoglobin A1C 6.7(H) <6.5 % LAB CHEMISTRY METHOD 11/12/2024 8:18 AM EST [facility] Mean Bld Glu Estim. 146 mg/dL LAB CHEMISTRY METHOD 11/12/2024 8:18 AM EST [facility] Blood Venous blood specimen / Unknown Venipuncture / Unknown 11/11/2024 6:47 AM EST 11/11/2024 10:56 AM EST Horace Solomon MD LAB BLOOD ORDERABLES Final Res ult [facility] [address] [place] [address], [place] [phone] * Hm Falls Risk Assessment (05/25/2024) Pathologist [facility] Falls Risk Assessment abstracted Phyllis Bishop MD HEALTH MAINTENANCE Final Result * (ABNORMAL) Lipid panel (05/19/2024) Pathologist [facility] LDL/HDL Ratio 7(A) 0 - 4 Triglycerides 468(A) 0 - 150 mg/dL Cholesterol 201(A) 0 - 200 mg/dL HDL 27(A) >=40 mg/dL LDL Cholesterol 81 0 - 100 mg/dL Blood Venous blood specimen / Unknown Result [facility] LAB BLOOD ORDERABLES Yady l Result * Urine Albumin Creatinine Ratio (05/11/2024) [facility] Urine Albumin Creatinine Ratio abstracted Result [facility] HEALTH MAINTENANCE Final Result * Diabetes Eye Exam (01/18/2024) [facility] Diabetes: Annual Retina Eye Exam abstracted Result [facility] HEALTH MAINTENANCE Final Result * Diabetes Foot Exam (11/18/2023) [facility] Diabetes: Annual Foot Exam abstracted Result [facility] HEALTH MAINTENANCE Final Result * DXA BONE [...] (World Health Organization Fracture Risk Assessment) [facility] Department of Internal Medicine recommends using National [...] (World Health Organization Fracture Risk Assessment) [facility] Department of Internal Medicine recommendsusing National Osteoporosis [...] fracture risk by FRAX. Jaida Barron MD [facility] DXA PROCEDURES Final Res ult * Hepatitis C Screening (10/12/2013) [facility] Hepatitis C Screening abstracted Historical Provider HEALTH MAINTENANCE Final Result from Last 3 Months or Most Recently Relevant to Health Maintenance Insurance MEDICARE COUNT INCLUDES THE [facility] Advance Directives Documents on File Type Date Recorded Patient Smooth And [employer] Expl anation Health Care Decision (hx) 03/24/2024 [...] (hx) 06/07/2021 AD NAGEL DIRECTIVE Care Teams Punchboard Stuffer Relationship Specialty Start Date End Date Anil Bettencourt MD [address] [place] [id number] PCP - General 08/02/01
--- OUTSIDE RECORDS SUMMARY | 2025-03-26 05:50 | XMS_ITS | Encounter Summary ---
Author Organization [facility] [address] Care Team Providers Care Buck Swamper Name Role Phone Anil Bettencourt MD Primary Care Provider [phone] Encounter Details Date Type Department Care Team (Late st Contact Info) Description 01/04/2025 Lab Requisition [facility] Lab [address] [facility] [place] [address] Social History Tobacco Use Types [...] documented as of this encounter Care Teams Buck Swamper Relationship Specialty Start Date End Date Anil Bettencourt MD [address] [place] [phone] PCP - General 08/02/01 documented as of this encounter
--- OUTSIDE RECORDS SUMMARY | 2025-03-26 05:50 | XMS_ITS | Encounter Summary ---
Author Organization [facility] [address] Address [address] [place] [address] Care Team Providers Care Production Metal Sprayer Name Role Phone Anil Bettencourt MD Primary Care Provider [phone] Encounter Details Date Type Department Care Team ([facility] st Contact Info) Description 11/16/2024 Lab Requisition [facility] - Main Lab [address] [place] [address] Horace Solomon MD [address] [place] [phone] Encounter for other general examination Social History [...] for your loved ones. For example, child attendant or elderly care for an older [...] ng/mL LAB CHEMISTRY METHOD 11/16/2024 5:36 PM [facility] Blood Venous blood specimen / Unknown Venipuncture / Unknown 11/16/2024 8:06 AM EST 11/16/2024 9:12 AM EST us Horace Solomon MD LAB BLOOD ORDERABLES Final Res ult [facility] [address] [place] [address], * (ABNORMAL) Iron and TIBC (11/16/2024 8:06 AM EST) Iron 32(L) 40 - 150 mcg/dL LAB CHEMISTRY METHOD 11/16/2024 5:36 PM EST [facility] TIBC 208(L) 250 - 450 mcg/dL LAB CHEMISTRY METHOD 11/16/2024 5:36 PM EST [facility] Iron Saturation 15 15 - 50 % LAB CHEMISTRY METHOD 11/16/2024 5:36 PM EST [facility] Blood Venous blood specimen / Unknown Venipuncture / Unknown 11/16/2024 8:06 AM EST 11/16/2024 9:12 AM EST Horace Solomon MD LAB BLOOD ORDERABLES Final Res ult [facility] [address] [place] [address], [place] [phone] * (ABNORMAL) Complete blood count (11/16/2024 8:06 AM EST) WBC 7.0 4.8 - 10.8 K/mcL LAB HEMETOLOGY METHOD 11/16/2024 10:12 AM [facility] RBC 3.10(L) 3.80 - 4.80 M/mcL LAB HEMETOLOGY METHOD 11/16/2024 10:12 AM [facility] Hemoglobin 9.4(L) 11.5 - 16.0 g/dL LAB HEMETOLOGY METHOD 11/16/2024 10:12 AM [facility] Hematocrit 28.8(L) 35.0 - 47.0 % LAB HEMETOLOGY METHOD 11/16/2024 10:12 AM [facility] MCV 92.0 79.0 - 98.0 FL LAB HEMETOLOGY METHOD 11/16/2024 10:12 AM [facility] MCH 30.0 27.0 - 32.0 pcg LAB HEMETOLOGY METHOD 11/16/2024 10:12 AM [facility] MCHC 32.6 32.0 - 37.0 g/dL LAB HEMETOLOGY METHOD 11/16/2024 10:12 AM [facility] RDW 13.2 11.0 - 15.0 % LAB HEMETOLOGY METHOD 11/16/2024 10:12 AM [facility] Platelets 334 130 - 400 K/mcL LAB HEMETOLOGY METHOD 11/16/2024 10:12 AM EST [facility] MPV 10.6 7.0 - 11.0 FL LAB HEMETOLOGY METHOD 11/16/2024 10:12 AM EST [facility] NRBC 0.0 <1.0 % LAB HEMETOLOGY METHOD 11/16/2024 10:12 AM EST [facility] NRBC Absolute 0.00 <0.10 K/mcL LAB HEMETOLOGY METHOD 11/16/2024 10:12 AM [facility] Blood Venous blood specimen / Unknown Venipuncture / Unknown 11/16/2024 8:06 AM EST 11/16/2024 9:12 AM EST us Horace Solomon MD LAB BLOOD ORDERABLES Final Res ult [facility] [address] [place] [address], [place] [phone] * (ABNORMAL) Comprehensive metabolic panel (11/16/2024 8:06 AM EST) Sodium 141 133 - 145 mmol/L LAB CHEMISTRY METHOD 11/16/2024 10:46 AM [facility] Potassium 4.1 3.5 - 5.5 mmol/L LAB CHEMISTRY METHOD 11/16/2024 10:46 AM [facility] Chloride 105 96 - 110 mmol/L LAB CHEMISTRY METHOD 11/16/2024 10:46 AM [facility] CO2 25 21 - 32 mmol/L LAB CHEMISTRY METHOD 11/16/2024 10:46 AM [facility] Anion Gap 11 3 - 11 LAB CHEMISTRY METHOD 11/16/2024 10:46 AM [facility] Glucose 153(H) 70 - 100 mg/dL LAB CHEMISTRY METHOD 11/16/2024 10:46 AM [facility] BUN 61(H) 5 - 25 mg/dL LAB CHEMISTRY METHOD 11/16/2024 10:46 AM [facility] Creatinine 3.25(H) 0.50 - 1.10 mg/dL LAB CHEMISTRY METHOD 11/16/2024 10:46 AM [facility] eGFR 14(L) >=60 mL/min/1. 73m2 LAB CHEMISTRY METHOD 11/16/2024 10:46 AM [facility] Comment:Calculation based on the??Chronic Kidney Disease Epidemiology Collaboration (CKD-EPI) equation refit??without adjustment for race. BUN/Creatinine Ratio 18.8 LAB CHEMISTRY METHOD 11/16/2024 10:46 AM [facility] Calcium 9.1 8.5 - 10.5 mg/dL LAB CHEMISTRY METHOD 11/16/2024 10:46 AM [facility] AST (SGOT) 10 10 - 42 unit/L LAB CHEMISTRY METHOD 11/16/2024 10:46 AM [facility] ALT (SGPT) 11 10 - 60 unit/L LAB CHEMISTRY METHOD 11/16/2024 10:46 AM [facility] Alkaline Phosphatase 150(H) 42 - 121 unit/L LAB CHEMISTRY METHOD 11/16/2024 10:46 AM [facility] Total Protein 6.6 6.0 - 8.0 g/dL LAB CHEMISTRY METHOD 11/16/2024 10:46 AM [facility] Albumin 3.0(L) 3.2 - 5.0 g/dL LAB CHEMISTRY METHOD 11/16/2024 10:46 AM [facility] Total Bilirubin 0.8 0.0 - 1.4 mg/dL LAB CHEMISTRY METHOD 11/16/2024 10:46 AM [facility] Blood Venous blood specimen / Unknown Venipuncture / Unknown 11/16/2024 8:06 AM EST 11/16/2024 9:12 AM EST us Horace Solomon MD LAB BLOOD ORDERABLES Final Res ult [facility] [address] [place] [address], documented in this encounter Visit Diagnoses Diagnosis Encounter for other general examination documented in this encounter Additional Health Concerns Infection Onset Date Last Indicated Resolved Time Respiratory Rule-Out 11/26/2024 11/26/2024 024 6:03 PM EST Gastrointestinal Rule-Out 11/30/2024 11/30/2024 7:06 PM EST Assessment Noted Time PHQ-9 Depression Total Score: 0 10/30/20 24 10:57 PM EST documented as of this encounter Care Teams Production Metal Sprayer Relationship Specialty Start Date End Date Anil Bettencourt MD [address] [place] [address] PCP - General 08/02/01 documented as of this encounter
--- OUTSIDE RECORDS SUMMARY | 2025-03-26 05:50 | XMS_ITS | Encounter Summary ---
Author Organization [facility] [place] [address] Care Team Providers Care Soaker Soda Worker Name Role Phone Anil Bettencourt MD Primary Care Provider [phone] Encounter Details Date Type Department Care Team (Late st Contact Info) Description 01/04/2025 Lab Requisition [facility] - Main Lab [address] [place] [address] Tyree Amador MD [address] [place] [phone] Chronic kidney disease, unspecified Social History [...] for your loved ones. For example, child support investigator or elderly care for an older adult? [...] mmol/L LAB CHEMISTRY METHOD 01/04/2025 12:08 PM [facility] Potassium 3.7 3.5 - 5.5 mmol/L LAB CHEMISTRY METHOD 01/04/2025 12:08 PM [facility] Chloride 104 96 - 110 mmol/L LAB CHEMISTRY METHOD 01/04/2025 12:08 PM [facility] CO2 26 21 - 32 mmol/L LAB CHEMISTRY METHOD 01/04/2025 12:08 PM [facility] Anion Gap 11 3 - 11 LAB CHEMISTRY METHOD 01/04/2025 12:08 PM [facility] Glucose 70 70 - 100 mg/dL LAB CHEMISTRY METHOD 01/04/2025 12:08 PM [facility] BUN 45(H) 5 - 25 mg/dL LAB CHEMISTRY METHOD 01/04/2025 12:08 PM [facility] Creatinine 3.05(H) 0.50 - 1.10 mg/dL LAB CHEMISTRY METHOD 01/04/2025 12:08 PM [facility] eGFR 15(L) >=60 mL/min/1. 73m2 LAB CHEMISTRY METHOD 01/04/2025 12:08 PM [facility] Comment:Calculation based on the??Chronic Kidney Disease Epidemiology Collaboration (CKD-EPI) equation refit??without adjustment for race. BUN/Creatinine Ratio 14.8 LAB CHEMISTRY METHOD 01/04/2025 12:08 PM [facility] Calcium 8.2(L) 8.5 - 10.5 mg/dL LAB CHEMISTRY METHOD 01/04/2025 12:08 PM [facility] AST (SGOT) 12 10 - 42 unit/L LAB CHEMISTRY METHOD 01/04/2025 12:08 PM [facility] ALT (SGPT) 14 10 - 60 unit/L LAB CHEMISTRY METHOD 01/04/2025 12:08 PM [facility] Alkaline Phosphatase 115 42 - 121 unit/L LAB CHEMISTRY METHOD 01/04/2025 12:08 PM [facility] Total Protein 6.2 6.0 - 8.0 g/dL LAB CHEMISTRY METHOD 01/04/2025 12:08 PM [facility] Albumin 3.2 3.2 - 5.0 g/dL LAB CHEMISTRY METHOD 01/04/2025 12:08 PM [facility] Total Bilirubin 0.6 0.0 - 1.4 mg/dL LAB CHEMISTRY METHOD 01/04/2025 12:08 PM [facility] Blood Venous blood specimen / Unknown Venipuncture / Unknown 01/04/2025 5:38 AM EST 01/04/2025 11:15 AM EST us Tyree Amador MD LAB BLOOD ORDERABLES Final Resu lt [facility] [address] [place] [address], * (ABNORMAL) Complete blood count (01/04/2025 5:38 AM EST) WBC 5.6 4.8 - 10.8 K/mcL LAB HEMETOLOGY METHOD 01/04/2025 11:43 AM [facility] RBC 3.00(L) 3.80 - 4.80 M/mcL LAB HEMETOLOGY METHOD 01/04/2025 11:43 AM [facility] Hemoglobin 9.0(L) 11.5 - 16.0 g/dL LAB HEMETOLOGY METHOD 01/04/2025 11:43 AM [facility] Hematocrit 27.6(L) 35.0 - 47.0 % LAB HEMETOLOGY METHOD 01/04/2025 11:43 AM [facility] MCV 92.0 79.0 - 98.0 FL LAB HEMETOLOGY METHOD 01/04/2025 11:43 AM [facility] MCH 30.0 27.0 - 32.0 pcg LAB HEMETOLOGY METHOD 01/04/2025 11:43 AM [facility] MCHC 32.6 32.0 - 37.0 g/dL LAB HEMETOLOGY METHOD 01/04/2025 11:43 AM [facility] RDW 13.8 11.0 - 15.0 % LAB HEMETOLOGY METHOD 01/04/2025 11:43 AM [facility] Platelets 201 130 - 400 K/mcL LAB HEMETOLOGY METHOD 01/04/2025 11:43 AM [facility] MPV 10.3 7.0 - 11.0 FL LAB HEMETOLOGY METHOD 01/04/2025 11:43 AM [facility] NRBC 0.0 <1.0 % LAB HEMETOLOGY METHOD 01/04/2025 11:43 AM [facility] NRBC Absolute 0.00 <0.10 K/mcL LAB HEMETOLOGY METHOD 01/04/2025 11:43 AM [facility] Blood Venous blood specimen / Unknown Venipuncture / Unknown 01/04/2025 5:38 AM EST 01/04/2025 11:15 AM EST us Tyree Amador MD LAB BLOOD ORDERABLES Final Resu lt [facility] [address] [place] [address], documented in this encounter Visit Diagnoses Diagnosis Chronic kidney disease, unspecified documented in this encounter Additional Health Concerns Assessment Noted Time PHQ-9 Depression Total Score: 0 10/30/20 24 10:57 PM EST documented as of this encounter Care Teams Soaker Soda Worker Relationship Specialty Start Date End Date Anil Bettencourt MD [address] [place] [phone] PCP - General 08/02/01 documented as of this encounter
--- OUTSIDE RECORDS SUMMARY | 2025-03-26 05:50 | XMS_ITS | Encounter Summary ---
Author Organization [facility] Address [address] [place] [address] Care Team Providers Care Lunch Counter Manager Name Role Phone Anil Bettencourt MD Primary Care Provider [phone] Encounter Details Date Type Department Care Team ([facility] Contact Info) Description 11/21/2024 Lab Requisition [facility] - Main Lab [address] [place] [address] Horace Solomon MD [address] [place] [id number] Encounter for other general examination Social History [...] your loved ones. For example, child welfare caseworker or elderly care for an older adult? [...] mmol/L LAB CHEMISTRY METHOD 11/21/2024 10:44 AM [facility] Potassium 3.7 3.5 - 5.5 mmol/L LAB CHEMISTRY METHOD 11/21/2024 10:44 AM [facility] Chloride 103 96 - 110 mmol/L LAB CHEMISTRY METHOD 11/21/2024 10:44 AM [facility] CO2 27 21 - 32 mmol/L LAB CHEMISTRY METHOD 11/21/2024 10:44 AM [facility] Anion Gap 9 3 - 11 LAB CHEMISTRY METHOD 11/21/2024 10:44 AM [facility] Glucose 137(H) 70 - 100 mg/dL LAB CHEMISTRY METHOD 11/21/2024 10:44 AM [facility] BUN 67(H) 5 - 25 mg/dL LAB CHEMISTRY METHOD 11/21/2024 10:44 AM [facility] Creatinine 3.59(H) 0.50 - 1.10 mg/dL LAB CHEMISTRY METHOD 11/21/2024 10:44 AM [facility] eGFR 12(L) >=60 mL/min/1. 73m2 LAB CHEMISTRY METHOD 11/21/2024 10:44 AM [facility] Comment:Calculation based on the??Chronic Kidney Disease Epidemiology Collaboration (CKD-EPI) equation refit??without adjustment for race. BUN/Creatinine Ratio 18.7 LAB CHEMISTRY METHOD 11/21/2024 10:44 AM [facility] Calcium 8.3(L) 8.5 - 10.5 mg/dL LAB CHEMISTRY METHOD 11/21/2024 10:44 AM [facility] Blood Venous blood specimen / Unknown Venipuncture / Unknown 11/21/2024 5:25 AM EST 11/21/2024 9:37 AM EST us Horace Solomon MD LAB BLOOD ORDERABLES Final Res ult [facility] [address] [place] [address], documented in this encounter Visit Diagnoses Diagnosis Encounter for other general examination documented in this encounter Additional Health Concerns Infection Onset Date Last Indicated Resolved Time Respiratory Rule-Out 11/26/2024 11/26/2024 024 6:03 PM EST Gastrointestinal Rule-Out 11/30/2024 11/30/2024 7:06 PM EST Assessment Noted Time PHQ-9 Depression Total Score: 0 10/30/20 24 10:57 PM EST documented as of this encounter Care Teams Lunch Counter Manager Relationship Specialty Start Date End Date Anil Bettencourt MD [address] [place] [address] PCP - General 08/02/01 documented as of this encounter
--- OUTSIDE RECORDS SUMMARY | 2025-03-26 05:50 | XMS_ITS | Encounter Summary ---
Author Organization [facility] Address [address] [place] [address] Care Team Providers Care Sustainable Communities Designer Name Role Phone Anil Bettencourt MD Primary Care Provider [phone] Encounter Details Date Type Department Care Team ([facility] Contact Info) Description 11/11/2024 Lab Requisition [facility] - Main Lab [address] [place] [address] Horace Solomon MD [address] [place] [phone] Encounter for other general examination Social History [...] for your loved ones. For example, child psychology teacher or elderly care for an older [...] K/mcL LAB HEMETOLOGY METHOD 11/11/2024 1:40 PM [facility] RBC 3.20(L) 3.80 - 4.80 M/mcL LAB HEMETOLOGY METHOD 11/11/2024 1:40 PM [facility] Hemoglobin 9.7(L) 11.5 - 16.0 g/dL LAB HEMETOLOGY METHOD 11/11/2024 1:40 PM [facility] Hematocrit 30.3(L) 35.0 - 47.0 % LAB HEMETOLOGY METHOD 11/11/2024 1:40 PM [facility] MCV 93.5 79.0 - 98.0 FL LAB HEMETOLOGY METHOD 11/11/2024 1:40 PM [facility] MCH 29.9 27.0 - 32.0 pcg LAB HEMETOLOGY METHOD 11/11/2024 1:40 PM [facility] MCHC 32.0 32.0 - 37.0 g/dL LAB HEMETOLOGY METHOD 11/11/2024 1:40 PM [facility] RDW 13.3 11.0 - 15.0 % LAB HEMETOLOGY METHOD 11/11/2024 1:40 PM [facility] Platelets 313 130 - 400 K/mcL LAB HEMETOLOGY METHOD 11/11/2024 1:40 PM [facility] MPV 10.5 7.0 - 11.0 FL LAB HEMETOLOGY METHOD 11/11/2024 1:40 PM [facility] NRBC 0.0 <1.0 % LAB HEMETOLOGY METHOD 11/11/2024 1:40 PM [facility] NRBC Absolute 0.00 <0.10 K/mcL LAB HEMETOLOGY METHOD 11/11/2024 1:40 PM [facility] Neutrophils Relative 75.5 % LAB HEMETOLOGY METHOD 11/11/2024 1:40 PM [facility] Lymphocytes Relative 10.7 % LAB HEMETOLOGY METHOD 11/11/2024 1:40 PM [facility] Monocytes Relative 9.9 % LAB HEMETOLOGY METHOD 11/11/2024 1:40 PM [facility] Eosinophils Relative 1.5 % LAB HEMETOLOGY METHOD 11/11/2024 1:40 PM [facility] Basophils Relative 1.1 % LAB HEMETOLOGY METHOD 11/11/2024 1:40 PM [facility] Immature Granulocytes Relative 1.3 % LAB HEMETOLOGY METHOD 11/11/2024 1:40 PM [facility] Neutrophils Absolute 5.64 1.50 - 7.00 K/mcL LAB HEMETOLOGY METHOD 11/11/2024 1:40 PM [facility] Lymphocytes Absolute 0.80(L) 1.00 - 5.00 K/mcL LAB HEMETOLOGY METHOD 11/11/2024 1:40 PM [facility] Monocytes Absolute 0.74 0.20 - 1.00 K/mcL LAB HEMETOLOGY METHOD 11/11/2024 1:40 PM EST [facility] Eosinophils Absolute 0.11 0.00 - 0.50 K/mcL LAB HEMETOLOGY METHOD 11/11/2024 1:40 PM EST [facility] Basophils Absolute 0.08 0.00 - 0.20 K/mcL LAB HEMETOLOGY METHOD 11/11/2024 1:40 PM EST [facility] Immature Granulocytes Absolute 0.10(H) 0.00 - 0.03 K/[facility] LAB HEMETOLOGY METHOD 11/11/2024 1:40 PM EST [facility] Blood Venous blood specimen / Unknown Venipuncture / Unknown 11/11/2024 6:47 AM EST 11/11/2024 10:56 AM EST Horace Solomon MD LAB BLOOD ORDERABLES Final Res ult [facility] [address] [place] [address], [place] [phone] * (ABNORMAL) Hemoglobin A1c (11/11/2024 6:47 AM EST) Hemoglobin A1C 6.7(H) <6.5 % LAB CHEMISTRY METHOD 11/12/2024 8:18 AM EST [facility] Mean Bld Glu Estim. 146 mg/dL LAB CHEMISTRY METHOD 11/12/2024 8:18 AM EST [facility] Blood Venous blood specimen / Unknown Venipuncture / Unknown 11/11/2024 6:47 AM EST 11/11/2024 10:56 AM EST Horace Solomon MD LAB BLOOD ORDERABLES Final Res ult [facility] [address] [place] [address], [place] [phone] * (ABNORMAL) Magnesium (11/11/2024 6:47 AM EST) Magnesium 1.7(L) 1.9 - 2.6 mg/dL LAB CHEMISTRY METHOD 11/11/2024 12:37 PM [facility] Blood Venous blood specimen / Unknown Venipuncture / Unknown 11/11/2024 6:47 AM EST 11/11/2024 10:56 AM EST us Horace Solomon MD LAB BLOOD ORDERABLES Final Res ult [facility] [address] [place] [address], [place] [phone] * (ABNORMAL) Comprehensive metabolic panel (11/11/2024 6:47 AM EST) Pathologist [facility] Sodium 141 133 - 145 mmol/L LAB CHEMISTRY METHOD 11/11/2024 12:37 PM [facility] Potassium 4.2 3.5 - 5.5 mmol/L LAB CHEMISTRY METHOD 11/11/2024 12:37 PM [facility] Chloride 107 96 - 110 mmol/L LAB CHEMISTRY METHOD 11/11/2024 12:37 PM [facility] CO2 23 21 - 32 mmol/L LAB CHEMISTRY METHOD 11/11/2024 12:37 PM [facility] Anion Gap 11 3 - 11 LAB CHEMISTRY METHOD 11/11/2024 12:37 PM [facility] Glucose 147(H) 70 - 100 mg/dL LAB CHEMISTRY METHOD 11/11/2024 12:37 PM [facility] BUN 63(H) 5 - 25 mg/dL LAB CHEMISTRY METHOD 11/11/2024 12:37 PM [facility] Creatinine 3.11(H) 0.50 - 1.10 mg/dL LAB CHEMISTRY METHOD 11/11/2024 12:37 PM [facility] eGFR 15(L) >=60 mL/min/1. 73m2 LAB CHEMISTRY METHOD 11/11/2024 12:37 PM [facility] Comment:Calculation based on the??Chronic Kidney Disease Epidemiology Collaboration (CKD-EPI) equation refit??without adjustment for race. BUN/Creatinine Ratio 20.3 LAB CHEMISTRY METHOD 11/11/2024 12:37 PM [facility] Calcium 8.6 8.5 - 10.5 mg/dL LAB CHEMISTRY METHOD 11/11/2024 12:37 PM [facility] AST (SGOT) 11 10 - 42 unit/L LAB CHEMISTRY METHOD 11/11/2024 12:37 PM [facility] ALT (SGPT) 6(L) 10 - 60 unit/L LAB CHEMISTRY METHOD 11/11/2024 12:37 PM [facility] Alkaline Phosphatase 134(H) 42 - 121 unit/L LAB CHEMISTRY METHOD 11/11/2024 12:37 PM [facility] Total Protein 6.7 6.0 - 8.0 g/dL LAB CHEMISTRY METHOD 11/11/2024 12:37 PM [facility] Albumin 3.1(L) 3.2 - 5.0 g/dL LAB CHEMISTRY METHOD 11/11/2024 12:37 PM [facility] Total Bilirubin 1.0 0.0 - 1.4 mg/dL LAB CHEMISTRY METHOD 11/11/2024 12:37 PM [facility] Blood Venous blood specimen / Unknown Venipuncture / Unknown 11/11/2024 6:47 AM EST 11/11/2024 10:56 AM EST us Horace Solomon MD LAB BLOOD ORDERABLES Final Res ult [facility] [address] [place] [address], [place] [phone] documented in this encounter Visit Diagnoses Diagnosis Encounter for other general examination documented in this encounter Additional Health Concerns Infection Onset Date Last Indicated Resolved Time Respiratory Rule-Out 11/26/2024 11/26/2024 024 6:03 PM EST Gastrointestinal Rule-Out 11/30/2024 11/30/2024 7:06 PM EST Assessment Noted Time PHQ-9 Depression Total Score: 0 10/30/20 24 10:57 PM EST documented as of this encounter Care Teams Sustainable Communities Designer Relationship Specialty Start Date End Date Anil Bettencourt MD [address] [place] [id number] PCP - General 08/02/01 documented as of this encounter
--- OUTSIDE RECORDS SUMMARY | 2025-03-26 05:50 | XMS_ITS | Encounter Summary ---
Author Organization [facility] Address [address] [place] [address] Care Team Providers Care Rack Loader Name Role Phone Anil Bettencourt MD Primary Care Provider [phone] Encounter Details Date Type Department Care Team ([facility] Contact Info) Description 11/17/2024 Lab Requisition [facility] - Main Lab [address] [place] [address] Horace Solomon MD [address] [place] [phone] Encounter for other general examination Social History [...] your loved ones. For example, child support officer or elderly care for an older adult? [...] LAB CHEMISTRY METHOD 11/17/2024 12:13 PM EST [facility] Blood Venous blood specimen / Unknown Venipuncture / Unknown 11/17/2024 7:32 AM EST 11/17/2024 10:54 AM EST us Horace Solomon MD LAB BLOOD ORDERABLES Final Res ult [facility] [address] [place] [address], documented in this encounter Visit Diagnoses Diagnosis Encounter for other general examination documented in this encounter Additional Health Concerns Infection Onset Date Last Indicated Resolved Time Respiratory Rule-Out 11/26/2024 11/26/2024 024 6:03 PM EST Gastrointestinal Rule-Out 11/30/2024 11/30/2024 7:06 PM EST Assessment Noted Time PHQ-9 Depression Total Score: 0 10/30/20 24 10:57 PM EST documented as of this encounter Care Teams Rack Loader Relationship Specialty Start Date End Date Anil Bettencourt MD [address] [place] [phone] PCP - General 08/02/01 documented as of this encounter
--- OUTSIDE RECORDS SUMMARY | 2025-03-26 05:50 | XMS_ITS | Encounter Summary ---
Author Organization [facility] [place] [address] Care Team Providers Care Physician Recruiter Name Role Phone Anil Bettencourt MD Primary Care Provider Encounter Details Date Type Department Care Team (Late st Contact Info) Description 11/20/2024 Lab Requisition [facility] - Main Lab [address] [facility] [place] [address] Social History Tobacco Use Types [...] your loved ones. For example, child care specialist or elderly care for an older [...] documented as of this encounter Care Teams Physician Recruiter Relationship Specialty Start Date End Date Anil Bettencourt MD [address] [place] [address] PCP - General 08/02/01 documented as of this encounter
--- OUTSIDE RECORDS SUMMARY | 2025-03-26 05:50 | XMS_ITS | Clinical Summary ---
Author Organization [facility] Address [address] [place] [address] Phone Care Team Providers Care Composite Bond Worker Name Role Phone Jacques Cline MD Primary Care Provider [phone] Allergies Active Allergy Reactions Criticality Noted Date [...] 0 Refills, Maintenance, 11/20/21 15:05:00 EST, Gel, [facility] 3, Partial fill upon patient request if [...] APPLY TO AFFECTED AREA TWICE DAILY Active [place]-3 Fatty Acids (FISH OIL PO) Take by [...] 02/02/2022 Obstructive sleep apnea 01/29/2022 Overview (04/29/2022): [facility] diagnostic polysomnogram 01/13/2022. Weight 166; BMI 28.AHI [...] Encounters Date Type Department Care Team Description 03/22/2025 Orders Only [facility] [address] [place] [phone] Carlos Siddiqui MD 03/22/2025 Treatment [facility] [address] [phone] Carlos Siddiqui MD End stage renal disease; Dependence on renal dialysis 03/06/2025 Treatment [facility] [address] [phone] Carlos Siddiqui MD End stage renal disease; [...] Procedure Name Priority Date/Time Associated Diagnosis Comments HEMOGLOBIN Routine 03/22/2025 3:00 AM EDT ALUMINUM LEVEL Routine 03/06/2025 3:00 AM EDT [...] EDT from Last 3 Months Results * (ABNORMAL) Hemoglobin (03/22/2025 3:00 AM EDT) Hgb 8.6(L) 11.2 - 15.7 g/dL [facility] Hemoglobin x 3 25.8(L) 33.6 - 47.1 g/dL [facility] 03/22/2025 3:00 AM EDT 03/23/2025 12:59 PM EDT us Carlos Siddiqui MD LAB BLOOD ORDERABLES Final Result [facility] [address] [place] [address] * Confirmation Test HCV (03/06/2025 3:00 AM EDT) Hep C Ab Confirmation Not needed [facility] 03/06/2025 3:00 AM EDT 03/07/2025 3:03 PM EDT Carlos Siddiqui MD LAB BLOOD ORDERABLES Final Result [facility] [address] [place] [address] * LIH (03/06/2025 3:00 AM EDT) Lipemia Normal Normal [facility] Icterus Normal Normal [facility] Hemolysis Normal Normal [facility] 03/06/2025 3:00 AM EDT 03/07/2025 3:32 PM EDT us Carlos Siddiqui MD LAB HISTORICA [id number] RESULTS Final Result Performing Organization Address [facility] Co de Phone Number [facility] [address] [place] [address] * (ABNORMAL) Kt/V Natural Log, URR (03/06/2025 3:00 AM EDT) Treatment Time 210 min [facility] Pre-Weight, lb [...] 3:00 AM EDT 03/07/2025 1:15 PM EDT us Carlos Siddiqui MD LAB HISTORICA [id number] RESULTS Final Result Performing Organization Address [facility] de Phone Number [facility] [address] [place] [address] * (ABNORMAL) Calcium Phosphorus Product, Adjusted (03/06/2025 [...] PM EDT Carlos Siddiqui MD LAB HISTORICA [id number] RESULTS Final Result Performing Organization Address [facility] de Phone Number [facility] [address] [place] [address] * HEPATITIS C ABS W/REFLEX RNA DETECTR (03/06/2025 3:00 AM EDT) Pathologist [facility] Hep C Virus Ab Non-Reacti ve Non-Reacti ve [facility] 03/06/2025 3:00 AM EDT 03/07/2025 3:32 PM EDT Carlos Siddiqui MD LAB HISTORICA [id number] RESULTS Final Result Performing Organization Address [facility] de Phone Number [facility] [address] [place] [address] * Hepatitis B Surface Ag w/Reflex Confirmation (03/06/2025 3:00 AM EDT) [facility] Hep B Surface Antigen Negative Negative [facility] 03/06/2025 3:00 AM EDT 03/07/2025 3:32 PM EDT Carlos Siddiqui MD LAB BLOOD ORDERABLES Final Result Performing Organization Address [facility] de Phone Number [facility] [address] [place] [address] * (ABNORMAL) TSAT (03/06/2025 3:00 AM EDT) Pathologist [facility] Iron 33(L) 50 - 170 ug/dL [facility] Transferrin 120(L) 250 - 380 mg/dL [facility] TIBC 168(L) 211 - 406 ug/dL [facility] Iron Saturation (TSat) 20(L) 22 - 52 % [facility] 03/06/2025 3:00 AM EDT 03/07/2025 3:32 PM EDT us Carlos Siddiqui MD LAB BLOOD ORDERABLES Final Result Performing Organization Address [facility] de Phone Number [facility] [address] [place] [address] * Hepatitis B Core Antibody, Total (03/06/2025 3:00 AM EDT) HBc Total Ab, S Negative Negative [facility] 03/06/2025 3:00 AM EDT 03/07/2025 3:32 PM EDT Carlos Siddiqui MD LAB BLOOD ORDERABLES Final Result Performing Organization Address [facility] de Phone Number [facility] [address] [place] [address] * (ABNORMAL) Aluminum level (03/06/2025 3:00 AM EDT) Aluminum 21(H) 1 - 20 ug/L [facility] Comment:Verified by repeat a nalysis 03/06/2025 3:00 AM EDT 03/07/2025 3:18 PM EDT Carlos Siddiqui MD LAB BLOOD ORDERABLES Final Result Performing Organization Address [facility] de Phone Number [facility] [address] [place] [address] * Vitamin D 25 Hydroxy (03/06/2025 3:00 AM EDT) Vitamin D, 25-Hydroxy 33 30 - 100 ng/mL [facility] Comment: Status ? Adult ?? Pediatric Deficient: ? <20 ? <15 Insufficient: ??20-29 ?? 15-19 Sufficient: ?30-100 ??20-100 03/06/2025 3:00 AM EDT 03/07/2025 3:32 PM EDT Carlos Siddiqui MD LAB BLOOD ORDERABLES Final Result Performing Organization Address [facility] Co de Phone Number [facility] [address] [place] [address] * (ABNORMAL) Hepatitis B Surface Antibody (03/06/2025 3:00 AM EDT) Pathologist [facility] Hep B Surface Antibody <4(A) mIU/mL [facility] Comment: Interpretation: <10: No Immunity >=10: Probable Immunity 03/06/2025 3:00 AM EDT 03/07/2025 3:32 PM EDT us Carlos Siddiqui MD LAB BLOOD ORDERABLES Final Result Performing Organization Address [facility] de Phone Number [facility] [address] [place] [address] * (ABNORMAL) CBC and Differential (03/06/2025 3:00 AM EDT) [facility] DIFFERENTIAL MANUAL, 2 Not Indicated [facility] White [...] BLOOD ORDERABLES Final Result Performing Organization Address [facility] Co de Phone Number [facility] [address] [place] [address] * (ABNORMAL) Uric Acid (03/06/2025 3:00 AM EDT) Uric Acid 10.2(H) 2.3 - 6.6 mg/dL [facility] 03/06/2025 3:0 0 AM EDT 03/07/2025 3:32 PM EDT Carlos Siddiqui MD LAB BLOOD ORDERABLES Final Result Performing Organization Address [facility] de Phone Number [facility] [address] [place] [address] * ALT (03/06/2025 3:00 AM EDT) ALT (SGPT) 13 10 - 49 U/L [facility] 03/06/2025 3:00 AM EDT 03/07/2025 3:32 PM EDT Carlos Siddiqui MD LAB BLOOD ORDERABLES Final Result Performing Organization Address [facility] de Phone Number [facility] [address] [place] [address] * AST (03/06/2025 3:00 AM EDT) AST (SGOT) 23 <34 U/L [facility] 03/06/2025 3:00 AM EDT 03/07/2025 3:32 PM EDT us Carlos Siddiqui MD LAB BLOOD ORDERABLES Final Result Performing Organization Address [facility] Co de Phone Number [facility] [address] [place] [address] * Protein, total (03/06/2025 3:00 AM EDT) Total Protein 6.4 6.4 - 8.9 g/dL [facility] 03/06/2025 3:00 AM EDT 03/07/2025 3:32 PM EDT us Carlos Siddiqiu MD LAB BLOOD ORDERABLES Final Result Performing Organization Address [facility] de Phone Number [facility] [address] [place] [address] * (ABNORMAL) Alkaline phosphatase (03/06/2025 3:00 AM EDT) Alkaline Phosphatase 165(H) 46 - 116 U/L [facility] 03/06/2025 3:00 AM EDT 03/07/2025 3:32 PM EDT us Carlos Siddiqui MD LAB BLOOD ORDERABLES Final Result Performing Organization Address [facility] de Phone Number [facility] [address] [place] [address] * PTH, Intact (03/06/2025 3:00 AM EDT) PTH, Intact 203 160 - 721 pg/mL [facility] Comment: Suggested (KDIGO) ESRD maintenance range is two to nine times the upper normal limit (80.1 pg/mL) for the laboratory. 03/06/2025 3:00 AM EDT 03/07/2025 3:32 PM EDT us Carlos Siddiqui MD LAB BLOOD ORDERABLES Final Result Performing Organization Address [facility] Co de Phone Number [facility] [address] [place] [address] * Magnesium (03/06/2025 3:00 AM EDT) Magnesium 2.4 1.9 - 2.7 mg/dL [facility] 03/06/2025 3:00 AM EDT 03/07/2025 3:32 PM EDT Carlos Siddiqui MD LAB BLOOD ORDERABLES Final Result Performing Organization Address [facility] de Phone Number [facility] [address] [place] [address] * (ABNORMAL) Lactate dehydrogenase (03/06/2025 3:00 AM EDT) Pathologist [facility] LDH 279(H) 120 - 246 U/L [facility] 03/06/2025 3:00 AM EDT 03/07/2025 3:32 PM EDT Carlos Siddiqui MD LAB BLOOD ORDERABLES Final Result Performing Organization Address [facility] de Phone Number [facility] [address] [place] [address] * (ABNORMAL) Hemoglobin A1c (03/06/2025 3:00 AM [...] BLOOD ORDERABLES Final Result Performing Organization Address [facility]/State/ZIP Co de Phone Number [facility] [address] [place] [address] * (ABNORMAL) Glucose, random (03/06/2025 3:00 AM EDT) Glucose 112(H) 74 - 109 mg/dL [facility] 03/06/2025 3:00 AM EDT 03/07/2025 3:32 PM EDT us Carlos Siddiqui MD LAB BLOOD ORDERABLES Final Result Performing Organization Address [facility] de Phone Number [facility] [address] [place] [address] * (ABNORMAL) Ferritin (03/06/2025 3:00 AM EDT) Ferritin 685(H) 10 - 291 ng/mL [facility] 03/06/2025 3:00 AM EDT 03/07/2025 3:32 PM EDT us Carlos Siddiqui MD LAB BLOOD ORDERABLES Final Result Performing Organization Address [facility] de Phone Number [facility] [address] [place] [address] * (ABNORMAL) Creatinine, serum (03/06/2025 3:00 AM EDT) Creatinine 5.76(H) 0.55 - 1.02 mg/dL [facility] 03/06/2025 3:00 AM EDT 03/07/2025 3:32 PM EDT us Carlos Siddiqui MD LAB BLOOD ORDERABLES Final Result Performing Organization Address [facility] Co de Phone Number [facility] [address] [place] [address] * Bilirubin, total (03/06/2025 3:00 AM EDT) Total Bilirubin 0.5 0.3 - 1.2 mg/dL [facility] 03/06/2025 3:00 AM EDT 03/07/2025 3:32 PM EDT us Carlos Siddiqui MD LAB BLOOD ORDERABLES Final Result [facility] [address] [place] [address] * (ABNORMAL) Lipid panel (03/06/2025 3:00 AM [...] BLOOD ORDERABLES Final Result Performing Organization Address [facility] Co de Phone Number [facility] [address] [place] [address] * (ABNORMAL) Electrolyte panel (03/06/2025 3:00 AM [...] BLOOD ORDERABLES Final Result Performing Organization Address [facility] Co de Phone Number [facility] [address] [place] [address] from Last 3 Months Insurance Medicare [facility] Medicare [facility] Medicare Care Teams Composite Bond Worker Relationship Specialty Start Date End Date Jacques Cline MD [address] [phone] PCP - General Nephrology 04/29/22
--- OUTSIDE RECORDS SUMMARY | 2025-03-26 05:50 | XMS_ITS | Encounter Summary ---
Author Organization [facility] Address [address] [place] [address] Care Team Providers Care Methods And Procedures Analyst Name Role Phone Anil Bettencourt MD Primary Care Provider [phone] Encounter Details Date Type Department Care Team ([facility] Description 11/18/2024 Lab Requisition [facility] - Main Lab [address] [place] [address] Horace Solomon MD [address] [place] [phone] Encounter for other general examination Social History [...] your loved ones. For example, child welfare worker or elderly care for an older [...] CBC auto differential (11/18/2024 6:02 AM EST) [facility] WBC 7.0 4.8 - 10.8 K/mcL LAB [...] LAB HEMETOLOGY METHOD 11/18/2024 10:18 AM EST [facility] Monocytes Absolute 0.78 0.20 - 1.00 K/[facility] LAB HEMETOLOGY METHOD 11/18/2024 10:18 AM EST [facility] Eosinophils Absolute 0.19 0.00 - 0.50 K/[facility] LAB HEMETOLOGY METHOD 11/18/2024 10:18 AM EST [facility] Basophils Absolute 0.07 0.00 - 0.20 K/[facility] LAB HEMETOLOGY METHOD 11/18/2024 10:[address] [facility] Immature Granulocytes Absolute 0.10(H) 0.00 - 0.03 K/[facility] LAB HEMETOLOGY METHOD 11/18/2024 10:18 AM EST [facility] Blood Venous blood specimen / Unknown Venipuncture / Unknown 11/18/2024 6:02 AM EST 11/18/2024 9:16 AM EST Horace Solomon MD LAB BLOOD ORDERABLES Final Res ult [facility] [address] [place] [address], [place] [phone] * Magnesium (11/18/2024 6:02 AM EST) Magnesium 2.0 1.9 - 2.6 mg/dL LAB CHEMISTRY METHOD 11/18/2024 10:40 AM EST [facility] Blood Venous blood specimen / Unknown Venipuncture / Unknown 11/18/2024 6:02 AM EST 11/18/2024 9:16 AM EST us Horace Solomon MD LAB BLOOD ORDERABLES Final Res ult [facility] [address] [place] [address], [place] [phone] * Folate (11/18/2024 6:02 AM EST) Pathologist [facility] Folate 7.3 2.8 - 17.0 ng/ml LAB CHEMISTRY METHOD 11/18/2024 11:02 AM EST [facility] Blood Venous blood specimen / Unknown Venipuncture / Unknown 11/18/2024 6:02 AM EST 11/18/2024 9:16 AM EST Horace Solomon MD LAB BLOOD ORDERABLES Final Res ult [facility] [address] [place] [address], [place] [phone] * (ABNORMAL) Vitamin B12 (11/18/2024 6:02 AM EST) [facility] Vitamin B-12 951(H) 250 - 900 pcg/mL LAB CHEMISTRY METHOD 11/18/2024 11:02 AM EST [facility] Blood Venous blood specimen / Unknown Venipuncture / Unknown 11/18/2024 6:02 AM EST 11/18/2024 9:16 AM EST Horace Solomon MD LAB BLOOD ORDERABLES Final Res ult [facility] [address] [place] [address], [place] [phone] * (ABNORMAL) Basic metabolic panel (11/18/2024 6:02 AM EST) [facility] Sodium 136 133 - 145 mmol/L LAB CHEMISTRY METHOD 11/18/2024 10:40 AM EST [facility] Potassium 3.8 3.5 - 5.5 mmol/L LAB CHEMISTRY METHOD 11/18/2024 10:40 AM EST [facility] Chloride 102 96 - 110 mmol/L LAB CHEMISTRY METHOD 11/18/2024 10:40 AM EST [facility] CO2 27 21 [...] Res ult [facility] [address] [place] [address], documented in this encounter Visit Diagnoses Diagnosis Encounter for other general examination documented in this encounter Additional Health Concerns Infection Onset Date Last Indicated Resolved Time Respiratory Rule-Out 11/26/2024 11/26/2024 024 6:03 PM EST Gastrointestinal Rule-Out 11/30/2024 11/30/2024 7:06 PM EST Assessment Noted Time PHQ-9 Depression Total Score: 0 10/30/20 10:57 PM EST documented as of this encounter Care Teams Methods And Procedures Analyst Relationship Specialty Start Date End Date Anil Bettencourt MD [address] [place] [address] PCP - General 08/02/01 documented as of this encounter
--- OUTSIDE RECORDS SUMMARY | 2025-03-26 05:51 | XMS_ITS | Encounter Summary ---
Author Organization [facility] Address [address] [address] Phone Care Team Providers Care Bag Bailer Name Role Phone Jacques Cline MD Primary Care Provider [phone] Encounter Details Date Type Department Care Team (Late st Contact Info) Description 03/22/2025 Orders Only [facility] [address] [phone] Carlos Siddiqui MD [address] [phone] Social History Tobacco Use Types Packs/Day [...] Comments HEMOGLOBIN Routine 03/22/2025 3:00 AM EDT documented in this encounter Results * (ABNORMAL) Hemoglobin (03/22/2025 3:00 AM EDT) Hgb 8.6(L) 11.2 - 15.7 g/dL [facility] Hemoglobin x 3 25.8(L) 33.6 - 47.1 g/dL [facility] 03/22/2025 3:00 AM EDT 03/23/2025 12:59 PM EDT us Carlos Siddiqui MD LAB BLOOD ORDERABLES Final Result [facility] [address] [place] [address] documented in this encounter Visit Diagnoses Not on filedocumented in this encounter Care Teams Bag Bailer Relationship Specialty Start Date End Date Jacques Cline MD [address] [phone] PCP - General Nephrology 04/29/22 documented as of this encounter
--- OUTSIDE RECORDS SUMMARY | 2025-03-26 05:51 | XMS_ITS | Encounter Summary ---
Author Organization [facility] Address [address] [place] [address] Care Team Providers Care Telecommunications Facility Examiner Name Role Phone Anil Bettencourt MD Primary Care Provider [phone] Encounter Details Date Type Department Care Team (Latest Contact Info) Description 01/17/2025 Lab Requisition [facility] - Main Lab [address] [place] [address] Tyree Amador MD [address] [place] [phone] Type 2 diabetes mellitus with hyperglycemia [...] for your loved ones. For example, child psychometrist or elderly care for an older adult? [...] EST Type 2 diabetes mellitus with hyperglycemia ([facility]/HCC) Chronic kidney disease, unspecified BASIC METABOLIC PANEL Routine 01/18/2025 5:08 AM EST Type 2 diabetes mellitus with hyperglycemia ([facility]/HCC) Chronic kidney disease, unspecified documented in this encounter Results * (ABNORMAL) Complete blood count (01/18/2025 6:08 AM EST) WBC 9.8 4.8 - 10.8 K/mcL LAB HEMETOLOGY METHOD 01/18/2025 9:41 AM [facility] RBC 2.70(L) 3.80 - 4.80 M/mcL LAB HEMETOLOGY METHOD 01/18/2025 9:41 AM [facility] Hemoglobin 8.2(L) 11.5 - 16.0 g/dL LAB HEMETOLOGY METHOD 01/18/2025 9:41 AM [facility] Hematocrit 26.2(L) 35.0 - 47.0 % LAB HEMETOLOGY METHOD 01/18/2025 9:41 AM [facility] MCV 96.0 79.0 - 98.0 FL LAB HEMETOLOGY METHOD 01/18/2025 9:41 AM [facility] MCH 30.0 27.0 - 32.0 pcg LAB HEMETOLOGY METHOD 01/18/2025 9:41 AM [facility] MCHC 31.3(L) 32.0 - 37.0 g/dL LAB HEMETOLOGY METHOD 01/18/2025 9:41 AM [facility] RDW 14.3 11.0 - 15.0 % LAB HEMETOLOGY METHOD 01/18/2025 9:41 AM [facility] Platelets 207 130 - 400 K/mcL LAB HEMETOLOGY METHOD 01/18/2025 9:41 AM EST [facility] MPV 11.1(H) 7.0 - 11.0 FL LAB HEMETOLOGY METHOD 01/18/2025 9:41 AM EST [facility] NRBC 0.0 <1.0 % LAB HEMETOLOGY METHOD 01/18/2025 9:41 AM EST [facility] NRBC Absolute 0.00 <0.10 K/mcL LAB HEMETOLOGY METHOD 01/18/2025 9:41 AM [facility] Blood Venous blood specimen / Unknown 01/18/2025 6:08 AM EST 01/18/2025 9:21 AM EST us Tyree Amador MD LAB BLOOD ORDERABLES Final Resu lt [facility] [address] [place] [address], [place] [phone] * (ABNORMAL) Basic metabolic panel (01/18/2025 5:08 AM EST) Sodium 140 133 - 145 mmol/L LAB CHEMISTRY METHOD 01/18/2025 9:50 AM [facility] Potassium 3.6 3.5 - 5.5 mmol/L LAB CHEMISTRY METHOD 01/18/2025 9:50 AM [facility] Chloride 106 96 - 110 mmol/L LAB CHEMISTRY METHOD 01/18/2025 9:50 AM [facility] CO2 24 21 - 32 mmol/L LAB CHEMISTRY METHOD 01/18/2025 9:50 AM [facility] Anion Gap 10 3 - 11 LAB CHEMISTRY METHOD 01/18/2025 9:50 AM [facility] Glucose 122(H) 70 - 100 mg/dL LAB CHEMISTRY METHOD 01/18/2025 9:50 AM EST [facility] BUN 43(H) 5 - 25 mg/dL LAB CHEMISTRY METHOD 01/18/2025 9:50 AM [facility] Creatinine 2.82(H) 0.50 - 1.10 mg/dL LAB CHEMISTRY METHOD 01/18/2025 9:50 AM [facility] eGFR 17(L) >=60 mL/min/1. 73m2 LAB CHEMISTRY METHOD 01/18/2025 9:50 AM [facility] Comment:Calculation based on the??Chronic Kidney Disease Epidemiology Collaboration (CKD-EPI) equation refit??without adjustment for race. BUN/Creatinine Ratio 15.2 LAB CHEMISTRY METHOD 01/18/2025 9:50 AM [facility] Calcium 8.3(L) 8.5 - 10.5 mg/dL LAB CHEMISTRY METHOD 01/18/2025 9:50 AM [facility] Blood Venous blood specimen / Unknown 01/18/2025 5:08 AM EST 01/18/2025 9:20 AM EST us Tyree Amador MD LAB BLOOD ORDERABLES Final Resu lt [facility] [address] [place] [address], documented in this encounter Visit Diagnoses Diagnosis Type 2 diabetes mellitus with hyperglycemia (CMS/HCC V24, CMS/HCC V28) Chronic kidney disease, unspecified documented in this encounter Additional Health Concerns Assessment Noted Time PHQ-9 Depression Total Score: 0 10/30/20 24 10:57 PM EST documented as of this encounter Care Teams Telecommunications Facility Examiner Relationship Specialty Start Date End Date Anil Bettencourt MD [address] [place] [address] PCP - General 08/02/01 documented as of this encounter
--- OUTSIDE RECORDS SUMMARY | 2025-03-26 05:51 | XMS_ITS | Encounter Summary ---
Author Organization [facility] Address [address] [place] [address] Care Team Providers Care Sr Community Manager Name Role Phone Anil Bettencourt MD Primary Care Provider [phone] Encounter Details Date Type Department Care Team (Latest Contact Info) Description 01/13/2025 Lab Requisition [facility] - Main Lab [address] [place] [address] Tyree Amador MD [address] [place] [address] Chronic kidney disease, unspecified; Type 2 [...] mmol/L LAB CHEMISTRY METHOD 01/15/2025 10:44 AM [facility] Potassium 4.0 3.5 - 5.5 mmol/L LAB CHEMISTRY METHOD 01/15/2025 10:44 AM [facility] Comment:Hemolysis present Chloride 109 96 - 110 mmol/L LAB CHEMISTRY METHOD 01/15/2025 10:44 AM [facility] CO2 25 21 - 32 mmol/L LAB CHEMISTRY METHOD 01/15/2025 10:44 AM [facility] Anion Gap 9 3 - 11 LAB CHEMISTRY METHOD 01/15/2025 10:44 AM [facility] Glucose 123(H) 70 - 100 mg/dL LAB CHEMISTRY METHOD 01/15/2025 10:44 AM [facility] BUN 42(H) 5 - 25 mg/dL LAB CHEMISTRY METHOD 01/15/2025 10:44 AM [facility] Creatinine 2.88(H) 0.50 - 1.10 mg/dL LAB CHEMISTRY METHOD 01/15/2025 10:44 AM [facility] eGFR 16(L) >=60 mL/min/1. 73m2 LAB CHEMISTRY METHOD 01/15/2025 10:44 AM [facility] Comment:Calculation based on the??Chronic Kidney Disease Epidemiology Collaboration (CKD-EPI) equation refit??without adjustment for race. BUN/Creatinine Ratio 14.6 LAB CHEMISTRY METHOD 01/15/2025 10:44 AM [facility] Calcium 8.5 8.5 - 10.5 mg/dL LAB CHEMISTRY METHOD 01/15/2025 10:44 AM [facility] AST (SGOT) 21 10 - 42 unit/L LAB CHEMISTRY METHOD 01/15/2025 10:44 AM [facility] Comment:Hemolysis present ALT (SGPT) 12 10 - 60 unit/L LAB CHEMISTRY METHOD 01/15/2025 10:44 AM [facility] Alkaline Phosphatase 157(H) 42 - 121 unit/L LAB CHEMISTRY METHOD 01/15/2025 10:44 AM [facility] Total Protein 6.4 6.0 - 8.0 g/dL LAB CHEMISTRY METHOD 01/15/2025 10:44 AM [facility] Albumin 3.0(L) 3.2 - 5.0 g/dL LAB CHEMISTRY METHOD 01/15/2025 10:44 AM [facility] Total Bilirubin 0.7 0.0 - 1.4 mg/dL LAB CHEMISTRY METHOD 01/15/2025 10:44 AM [facility] Blood Venous blood specimen / Unknown Venipuncture / Unknown 01/15/2025 6:08 AM EST 01/15/2025 9:46 AM EST us Tyree Amador MD LAB BLOOD ORDERABLES Final Resu lt [facility] [address] [place] [address], * (ABNORMAL) Complete blood count (01/15/2025 6:08 AM EST) WBC 6.1 4.8 - 10.8 K/mcL LAB HEMETOLOGY METHOD 01/15/2025 10:33 AM [facility] RBC 2.80(L) 3.80 - 4.80 M/mcL LAB HEMETOLOGY METHOD 01/15/2025 10:33 AM [facility] Hemoglobin 8.4(L) 11.5 - 16.0 g/dL LAB HEMETOLOGY METHOD 01/15/2025 10:33 AM [facility] Hematocrit 26.2(L) 35.0 - 47.0 % LAB HEMETOLOGY METHOD 01/15/2025 10:33 AM [facility] MCV 93.6 79.0 - 98.0 FL LAB HEMETOLOGY METHOD 01/15/2025 10:33 AM [facility] MCH 30.0 27.0 - 32.0 pcg LAB HEMETOLOGY METHOD 01/15/2025 10:33 AM [facility] MCHC 32.1 32.0 - 37.0 g/dL LAB HEMETOLOGY METHOD 01/15/2025 10:33 AM [facility] RDW 14.0 11.0 - 15.0 % LAB HEMETOLOGY METHOD 01/15/2025 10:33 AM [facility] Platelets 225 130 - 400 K/mcL LAB HEMETOLOGY METHOD 01/15/2025 10:33 AM [facility] MPV 11.8(H) 7.0 - 11.0 FL LAB HEMETOLOGY METHOD 01/15/2025 10:33 AM [facility] NRBC 0.0 <1.0 % LAB HEMETOLOGY METHOD 01/15/2025 10:33 AM [facility] NRBC Absolute 0.00 <0.10 K/mcL LAB HEMETOLOGY METHOD 01/15/2025 10:33 AM [facility] Blood Venous blood specimen / Unknown Venipuncture / Unknown 01/15/2025 6:08 AM EST 01/15/2025 9:50 AM EST us Tyree Amador MD LAB BLOOD ORDERABLES Final Resu lt [facility] [address] [place] [address], [place] [phone] documented in this encounter Visit Diagnoses Diagnosis Chronic kidney disease, unspecified Type 2 diabetes mellitus with hyperglycemia (CMS/HCC V24, CMS/HCC V28) documented in this encounter Additional Health Concerns Assessment Noted Time PHQ-9 Depression Total Score: 0 10/30/20 24 10:57 PM EST documented as of this encounter Care Teams Sr Community Manager Relationship Specialty Start Date End Date Anil Bettencourt MD [address] [place] [address] PCP - General 08/02/01 documented as of this encounter
--- OUTSIDE RECORDS SUMMARY | 2025-03-26 05:51 | XMS_ITS | Encounter Summary ---
Author Organization [facility] Address [address] [place] [address] Care Team Providers Care Senior Investigator Name Role Phone Anil Bettencourt MD Primary Care Provider [phone] Encounter Details Date Type Department Care Team (Latest Contact Info) Description 01/20/2025 Lab Requisition [facility] - Main Lab [address] [place] [address] Tyree Amador MD [address] [place] [phone] Chronic kidney disease, unspecified; Type 2 [...] for your loved ones. For example, children's tutor or elderly care for an older adult? [...] unspecified Type 2 diabetes mellitus with hyperglycemia ([facility] V24, [facility] V28) documented in this encounter Additional Health Concerns Assessment Noted Time PHQ-9 Depression Total Score: 0 10/30/20 10:57 PM EST documented as of this encounter Care Teams Senior Investigator Relationship Specialty Start Date End Date Anil Bettencourt MD [address] [place] [address] PCP - General 08/02/01 documented as of this encounter
--- OUTSIDE RECORDS SUMMARY | 2025-03-26 05:51 | XMS_ITS | Encounter Summary ---
Author Organization [facility] Address [address] [place] [address] Care Team Providers Care Knot Picker Cloth Name Role Phone Anil Bettencourt MD Primary Care Provider [phone] Encounter Details Date Type Department Care Team ([facility] Contact Info) Description 11/24/2024 Lab Requisition [facility] - Main Lab [address] [place] [address] Horace Solomon MD [address] [place] [address] Encounter for other general examination Social History [...] K/mcL LAB HEMETOLOGY METHOD 11/24/2024 11:00 AM [facility] RBC 2.60(L) 3.80 - 4.80 M/mcL LAB HEMETOLOGY METHOD 11/24/2024 11:00 AM [facility] Hemoglobin 7.9(L) 11.5 - 16.0 g/dL LAB HEMETOLOGY METHOD 11/24/2024 11:00 AM [facility] Hematocrit 24.4(L) 35.0 - 47.0 % LAB HEMETOLOGY METHOD 11/24/2024 11:00 AM [facility] MCV 92.8 79.0 - 98.0 FL LAB HEMETOLOGY METHOD 11/24/2024 11:00 AM [facility] MCH 30.0 27.0 - 32.0 pcg LAB HEMETOLOGY METHOD 11/24/2024 11:00 AM [facility] MCHC 32.4 32.0 - 37.0 g/dL LAB HEMETOLOGY METHOD 11/24/2024 11:00 AM [facility] RDW 13.5 11.0 - 15.0 % LAB HEMETOLOGY METHOD 11/24/2024 11:00 AM [facility] Platelets 315 130 - 400 K/mcL LAB HEMETOLOGY METHOD 11/24/2024 11:00 AM [facility] MPV 10.5 7.0 - 11.0 FL LAB HEMETOLOGY METHOD 11/24/2024 11:00 AM EST [facility] NRBC 0.0 <1.0 % LAB HEMETOLOGY METHOD 11/24/2024 11:00 AM EST [facility] NRBC Absolute 0.00 <0.10 K/mcL LAB HEMETOLOGY METHOD 11/24/2024 11:00 AM EST [facility] Blood Venous blood specimen / Unknown Venipuncture / Unknown 11/24/2024 5:55 AM EST 11/24/2024 8:56 AM EST us Horace Solomon MD LAB BLOOD ORDERABLES Final Res ult [facility] [address] [place] [address], [place] [phone] * (ABNORMAL) Basic metabolic panel (11/24/2024 5:55 AM EST) Sodium 139 133 - 145 mmol/L LAB CHEMISTRY METHOD 11/24/2024 10:25 AM [facility] Potassium 3.5 3.5 - 5.5 mmol/L LAB CHEMISTRY METHOD 11/24/2024 10:25 AM [facility] Chloride 106 96 - 110 mmol/L LAB CHEMISTRY METHOD 11/24/2024 10:25 AM [facility] CO2 24 21 - 32 mmol/L LAB CHEMISTRY METHOD 11/24/2024 10:25 AM [facility] Anion Gap 9 3 - 11 LAB CHEMISTRY METHOD 11/24/2024 10:25 AM [facility] Glucose 100 70 - 100 mg/dL LAB CHEMISTRY METHOD 11/24/2024 10:25 AM [facility] BUN 66(H) 5 - 25 mg/dL LAB CHEMISTRY METHOD 11/24/2024 10:25 AM [facility] Creatinine 3.30(H) 0.50 - 1.10 mg/dL LAB CHEMISTRY METHOD 11/24/2024 10:25 AM [facility] eGFR 14(L) >=60 mL/min/1. 73m2 LAB CHEMISTRY METHOD 11/24/2024 10:25 AM EST [facility] Comment:Calculation based on the??Chronic Kidney Disease Epidemiology Collaboration (CKD-EPI) equation refit??without adjustment for race. BUN/Creatinine Ratio 20.0 LAB CHEMISTRY METHOD 11/24/2024 10:25 AM EST [facility] Calcium 8.6 8.5 - 10.5 mg/dL LAB CHEMISTRY METHOD 11/24/2024 10:25 AM [facility] Blood Venous blood specimen / Unknown Venipuncture / Unknown 11/24/2024 5:55 AM EST 11/24/2024 8:56 AM EST us Horace Solomon MD LAB BLOOD ORDERABLES Final Res ult [facility] [address] [place] [address], documented in this encounter Visit Diagnoses Diagnosis Encounter for other general examination documented in this encounter Additional Health Concerns Infection Onset Date Last Indicated Resolved Time Respiratory Rule-Out 11/26/2024 11/26/2024 024 6:03 PM EST Gastrointestinal Rule-Out 11/30/2024 11/30/2024 7:06 PM EST Assessment Noted Time PHQ-9 Depression Total Score: 0 10/30/20 24 10:57 PM EST documented as of this encounter Care Teams Knot Picker Cloth Relationship Specialty Start Date End Date Anil Bettencourt MD [address] [place] [address] PCP - General 08/02/01 documented as of this encounter
--- OUTSIDE RECORDS SUMMARY | 2025-03-26 05:51 | XMS_ITS | Encounter Summary ---
Author Organization [facility] Address [address] [address] Phone Care Team Providers Care Medical Numerical Control Operator Name Role Phone Jacques Cline MD Primary Care Provider [phone] Encounter Details Date Type Department Care Team (Late st Contact Info) Description 03/22/2025 Treatment [facility]. [address] [address] Jaylene Siddiqui MD [facility] [address] End stage renal disease; Dependence on renal dialysis Social History Tobacco Use Types Packs/Day Years [...] on file documented as of this encounter Miscellaneous Notes * Dialysis Note - Jaylene Siddiqui MD - 03/22/2025 12:00 AM EDT BASIC NOTE Patient: Radha Wright : 1945 Note Author: JAYLENE SIDDIQUI MD Service Date: 03/22/2025 This patient was personally seen for a basic visit as part of routine monthly dialysis care for end stage renal disease. Attending Special Skills Officer: JAYLENE SIDDIQUI MD Dialysis Location: [facility] Schedule: Shift: 1 OVERVIEW Patient is stable. ADEQUACY ASSESSMENT Kt/V, Natural Log 1.76 (03/06/25) UREA REDUCTION RATIO (%) 80 (03/06/25) BUN 61 (03/06/25) BUN Post Dialysis 12 (03/06/25) Creatinine 5.76 (03/06/25) Bicarbonate (CO2) 23 (03/06/25) Sodium 135 (03/06/25) ANEMIA ASSESSMENT Hgb 8.2 (03/06/25) Iron Saturation (TSat) 20 (03/06/25) Ferritin 685 (03/06/25) Iron 33 (03/06/25) TIBC 168 (03/06/25) MCV 91.1 (03/06/25) Platelets 236 (03/06/25) BMM ASSESSMENT Calcium, Adjusted Total 8.8 03/06/25 Calcium 8.2 03/06/25 Phosphorus, Serum 7.4 03/06/25 Ca*PO4 60.7 03/06/25 PTH, Intact 203 03/06/25 Vitamin D, 25-Hydroxy 33 03/06/25 Magnesium 2.4 03/06/25 Alkaline Phosphatase 165 03/06/25 Aluminum 21 03/06/25 NUTRITION ASSESSMENT Albumin 3.3 03/06/25 Potassium 5.6 03/06/25 Hemoglobin A1C 6.0 03/06/25 ADDITIONAL LABS White Blood Cells 9.2 (03/06/25) Cholesterol 108 (03/06/25) HDL 17 (03/06/25) LDL-Calc 55 (03/06/25) Triglycerides 180 (03/06/25) Hep B Surface Antibody <4 (03/06/25) Uric Acid 10.2 (03/06/25) Signed by: JAYLENE SIDDIQUI MD on 03/22/2025 at 02:21:45 PM Transcribed by: JAYLENE SIDDIQUI MD on 03/22/2025 at 02:21:45 PM documented in this encounter Plan of Treatment Not on file documented as of this encounter Visit Diagnoses Diagnosis End stage renal disease Dependence on renal dialysis documented in this encounter Care Teams Medical Numerical Control Operator Relationship Specialty Start Date End Date Jacques Cline MD [address] [phone] PCP - General Nephrology 04/29/22 documented as of this encounter
--- OUTSIDE RECORDS SUMMARY | 2025-03-26 05:51 | XMS_ITS | Encounter Summary ---
Author Organization [facility] Address [address] [place] [address] Care Team Providers Care Store Facility Technician Name Role Phone Anil Bettencourt MD Primary Care Provider [phone] Encounter Details Date Type Department Care Team (Latest Contact Info) Description 01/10/2025 Lab Requisition [facility] - Main Lab [address] [place] [address] Tyree Amador MD [address] [place] [phone] Type 2 diabetes mellitus with hyperglycemia [...] EST Type 2 diabetes mellitus with hyperglycemia ([facility]/HCC) Chronic kidney disease, unspecified BASIC METABOLIC PANEL Routine 01/11/2025 5:48 AM EST Type 2 diabetes mellitus with hyperglycemia ([facility]/HCC) Chronic kidney disease, unspecified documented in this encounter Results * (ABNORMAL) Basic metabolic panel (01/11/2025 5:48 AM EST) Sodium 140 133 - 145 mmol/L LAB CHEMISTRY METHOD 01/11/2025 11:04 AM [facility] Potassium 4.3 3.5 - 5.5 mmol/L LAB CHEMISTRY METHOD 01/11/2025 11:04 AM [facility] Comment:Hemolysis present Chloride 110 96 - 110 mmol/L LAB CHEMISTRY METHOD 01/11/2025 11:04 AM [facility] CO2 24 21 - 32 mmol/L LAB CHEMISTRY METHOD 01/11/2025 11:04 AM [facility] Anion Gap 6 3 - 11 LAB CHEMISTRY METHOD 01/11/2025 11:04 AM [facility] Glucose 78 70 - 100 mg/dL LAB CHEMISTRY METHOD 01/11/2025 11:04 AM [facility] BUN 44(H) 5 - 25 mg/dL LAB CHEMISTRY METHOD 01/11/2025 11:04 AM [facility] Creatinine 2.75(H) 0.50 - 1.10 mg/dL LAB CHEMISTRY METHOD 01/11/2025 11:04 AM [facility] eGFR 17(L) >=60 mL/min/1. 73m2 LAB CHEMISTRY METHOD 01/11/2025 11:04 AM [facility] Comment:Calculation based on the??Chronic Kidney Disease Epidemiology Collaboration (CKD-EPI) equation refit??without adjustment for race. BUN/Creatinine Ratio 16.0 LAB CHEMISTRY METHOD 01/11/2025 11:04 AM EST [facility] Calcium 8.7 8.5 - 10.5 mg/dL LAB CHEMISTRY METHOD 01/11/2025 11:04 AM [facility] Blood Venous blood specimen / Unknown Venipuncture / Unknown 01/11/2025 5:48 AM EST 01/11/2025 10:20 AM EST us Tyree Amador MD LAB BLOOD ORDERABLES Final Resu lt [facility] [address] [place] [address], [place] [phone] * (ABNORMAL) Complete blood count (01/11/2025 5:48 AM EST) WBC 5.8 4.8 - 10.8 K/mcL LAB HEMETOLOGY METHOD 01/11/2025 10:45 AM [facility] RBC 3.00(L) 3.80 - 4.80 M/mcL LAB HEMETOLOGY METHOD 01/11/2025 10:45 AM [facility] Hemoglobin 8.8(L) 11.5 - 16.0 g/dL LAB HEMETOLOGY METHOD 01/11/2025 10:45 AM [facility] Hematocrit 27.9(L) 35.0 - 47.0 % LAB HEMETOLOGY METHOD 01/11/2025 10:45 AM [facility] MCV 94.6 79.0 - 98.0 FL LAB HEMETOLOGY METHOD 01/11/2025 10:45 AM [facility] MCH 29.8 27.0 - 32.0 pcg LAB HEMETOLOGY METHOD 01/11/2025 10:45 AM [facility] MCHC 31.5(L) 32.0 - 37.0 g/dL LAB HEMETOLOGY METHOD 01/11/2025 10:45 AM EST [facility] RDW 14.1 11.0 - 15.0 % LAB HEMETOLOGY METHOD 01/11/2025 10:45 AM EST [facility] Platelets 246 130 - 400 K/mcL LAB HEMETOLOGY METHOD 01/11/2025 10:45 AM EST [facility] MPV 11.3(H) 7.0 - 11.0 FL LAB HEMETOLOGY METHOD 01/11/2025 10:45 AM EST [facility] NRBC 0.0 <1.0 % LAB HEMETOLOGY METHOD 01/11/2025 10:45 AM EST [facility] NRBC Absolute 0.00 <0.10 K/mcL LAB HEMETOLOGY METHOD 01/11/2025 10:45 AM EST [facility] Blood Venous blood specimen / Unknown Venipuncture / Unknown 01/11/2025 5:48 AM EST 01/11/2025 10:20 AM EST us Tyree Amador MD LAB BLOOD ORDERABLES Final Resu lt [facility] [address] [place] [address], documented in this encounter Visit Diagnoses Diagnosis Type 2 diabetes mellitus with hyperglycemia (CMS/HCC V24, CMS/HCC V28) Chronic kidney disease, unspecified documented in this encounter Additional Health Concerns Assessment Noted Time PHQ-9 Depression Total Score: 0 10/30/20 24 10:57 PM EST documented as of this encounter Care Teams Store Facility Technician Relationship Specialty Start Date End Date Anil Bettencourt MD [address] [place] [address] PCP - General 08/02/01 documented as of this encounter
--- OUTSIDE RECORDS SUMMARY | 2025-03-26 05:51 | XMS_ITS | Encounter Summary ---
Author Organization [facility] Address [address] [place] [address] Care Team Providers Care Employment Programs Analyst Name Role Phone Anil Bettencourt MD Primary Care Provider [phone] Encounter Details Date Type Department Care Team ([facility] Contact Info) Description 11/26/2024 Lab Requisition [facility] - Main Lab [address] [place] [address] Horace Solomon MD [address] [place] [address] Encounter for other general examination Social History [...] your loved ones. For example, child development specialist or elderly care for an [...] LAB MICROBIOLOGY METHOD 11/26/2024 6:03 PM [facility] Influenza A PCR Not Detected Not Detected LAB MICROBIOLOGY METHOD 11/26/2024 6:03 PM [facility] Influenza B PCR Not Detected Not Detected LAB MICROBIOLOGY METHOD 11/26/2024 6:03 PM [facility] Coronavirus 229E Not Detected Not Detected LAB MICROBIOLOGY METHOD 11/26/2024 6:03 PM [facility] Coronavirus HKU1 Not Detected Not Detected LAB MICROBIOLOGY METHOD 11/26/2024 6:03 PM [facility] Coronavirus OC43 Not Detected Not Detected LAB MICROBIOLOGY METHOD 11/26/2024 6:03 PM [facility] Coronavirus NL63 Not Detected Not Detected LAB MICROBIOLOGY METHOD 11/26/2024 6:03 PM [facility] Parainfluenza Virus 1 Not Detected Not Detected LAB MICROBIOLOGY METHOD 11/26/2024 6:03 PM [facility] Parainfluenza Virus 2 Not Detected Not Detected LAB MICROBIOLOGY METHOD 11/26/2024 6:03 PM [facility] Parainfluenza Virus 3 Not Detected Not Detected LAB MICROBIOLOGY METHOD 11/26/2024 6:03 PM [facility] Parainfluenza Virus 4 Not Detected Not Detected LAB MICROBIOLOGY METHOD 11/26/2024 6:03 PM [facility] RSV PCR Not Detected Not Detected LAB MICROBIOLOGY METHOD 11/26/2024 6:03 PM [facility] Human Metapneumovirus A and B Not Detected Not Detected LAB MICROBIOLOGY METHOD 11/26/2024 6:03 PM EST [facility] Rhinovirus/Entero virus Not Detected Not Detected LAB MICROBIOLOGY METHOD 11/26/2024 6:03 PM EST [facility] Bordetella pertussis Not Detected Not Detected LAB MICROBIOLOGY METHOD 11/26/2024 6:03 PM EST [facility] Bordetella parapertussis Not Detected Not Detected LAB MICROBIOLOGY METHOD 11/26/2024 6:03 PM EST [facility] Mycoplasma pneumo by PCR Not Detected Not Detected LAB MICROBIOLOGY METHOD 11/26/2024 6:03 PM EST [facility] Chlamydia pneumoniae Not Detected Not Detected LAB MICROBIOLOGY METHOD 11/26/2024 6:03 PM [facility] SARS COV-2 Not Detected Not Detected LAB MICROBIOLOGY METHOD 11/26/2024 6:03 PM [facility] Swab 11/26/2024 12:3 0 PM EST 11/26/2024 1:41 PM EST [facility] - 11/26/2024 6:03 PM EST Testing was performed using the [employer] Respiratory Pathogen PCR Assay. All results must [...] MICROBIOLOGY - GENERAL ORD ERABLES Final Result [facility] [address] [place] [address], documented in this encounter Visit Diagnoses Diagnosis Encounter for other general examination documented in this encounter Additional Health Concerns Infection Onset Date Last Indicated Resolved Time Respiratory Rule-Out 11/26/2024 11/26/2024 024 6:03 PM EST Gastrointestinal Rule-Out 11/30/2024 11/30/2024 7:06 PM EST Assessment Noted Time PHQ-9 Depression Total Score: 0 10/30/20 10:57 PM EST documented as of this encounter Care Teams Employment Programs Analyst Relationship Specialty Start Date End Date Anil Bettencourt MD [address] [place] [address] PCP - General 08/02/01 documented as of this encounter
--- OUTSIDE RECORDS SUMMARY | 2025-03-26 05:51 | XMS_ITS | Encounter Summary ---
Author Organization [facility] Address [address] [place] [address] Care Team Providers Care Racecourse Barrier Attendant Name Role Phone Anil Bettencourt MD Primary Care Provider [phone] Encounter Details Date Type Department Care Team ([facility] Contact Info) Description 11/23/2024 Lab Requisition [facility] - Main Lab [address] [place] [address] Horace Solomon MD [address] [place] [address] Encounter for other general examination Social History [...] your loved ones. For example, child adolescent psychiatrist or elderly care for an older adult? [...] K/mcL LAB HEMETOLOGY METHOD 11/23/2024 9:50 AM [facility] RBC 2.60(L) 3.80 - 4.80 M/mcL LAB HEMETOLOGY METHOD 11/23/2024 9:50 AM [facility] Hemoglobin 7.9(L) 11.5 - 16.0 g/dL LAB HEMETOLOGY METHOD 11/23/2024 9:50 AM [facility] Hematocrit 23.9(L) 35.0 - 47.0 % LAB HEMETOLOGY METHOD 11/23/2024 9:50 AM [facility] MCV 90.9 79.0 - 98.0 FL LAB HEMETOLOGY METHOD 11/23/2024 9:50 AM [facility] MCH 30.0 27.0 - 32.0 pcg LAB HEMETOLOGY METHOD 11/23/2024 9:50 AM [facility] MCHC 33.1 32.0 - 37.0 g/dL LAB HEMETOLOGY METHOD 11/23/2024 9:50 AM [facility] RDW 13.2 11.0 - 15.0 % LAB HEMETOLOGY METHOD 11/23/2024 9:50 AM [facility] Platelets 328 130 - 400 K/mcL LAB HEMETOLOGY METHOD 11/23/2024 9:50 AM [facility] MPV 10.3 7.0 - 11.0 FL LAB HEMETOLOGY METHOD 11/23/2024 9:50 AM EST [facility] NRBC 0.0 <1.0 % LAB HEMETOLOGY METHOD 11/23/2024 9:50 AM EST [facility] NRBC Absolute 0.00 <0.10 K/mcL LAB HEMETOLOGY METHOD 11/23/2024 9:50 AM EST [facility] Blood Venous blood specimen / Unknown Venipuncture / Unknown 11/23/2024 6:01 AM EST 11/23/2024 8:50 AM EST us Horace Solomon MD LAB BLOOD ORDERABLES Final Res ult [facility] [address] [place] [address], [place] [phone] * (ABNORMAL) Comprehensive metabolic panel (11/23/2024 6:01 AM EST) Sodium 140 133 - 145 mmol/L LAB CHEMISTRY METHOD 11/23/2024 10:06 AM [facility] Potassium 3.6 3.5 - 5.5 mmol/L LAB CHEMISTRY METHOD 11/23/2024 10:06 AM [facility] Chloride 105 96 - 110 mmol/L LAB CHEMISTRY METHOD 11/23/2024 10:06 AM [facility] CO2 27 21 - 32 mmol/L LAB CHEMISTRY METHOD 11/23/2024 10:06 AM [facility] Anion Gap 8 3 - 11 LAB CHEMISTRY METHOD 11/23/2024 10:06 AM [facility] Glucose 134(H) 70 - 100 mg/dL LAB CHEMISTRY METHOD 11/23/2024 10:06 AM [facility] BUN 69(H) 5 - 25 mg/dL LAB CHEMISTRY METHOD 11/23/2024 10:06 AM [facility] Creatinine 3.62(H) 0.50 - 1.10 mg/dL LAB CHEMISTRY METHOD 11/23/2024 10:06 AM [facility] eGFR 12(L) >=60 mL/min/1. 73m2 LAB CHEMISTRY METHOD 11/23/2024 10:06 AM [facility] Comment:Calculation based on the??Chronic Kidney Disease Epidemiology Collaboration (CKD-EPI) equation refit??without adjustment for race. BUN/Creatinine Ratio 19.1 LAB CHEMISTRY METHOD 11/23/2024 10:06 AM [facility] Calcium 8.6 8.5 - 10.5 mg/dL LAB CHEMISTRY METHOD 11/23/2024 10:06 AM [facility] AST (SGOT) 13 10 - 42 unit/L LAB CHEMISTRY METHOD 11/23/2024 10:06 AM [facility] ALT (SGPT) 11 10 - 60 unit/L LAB CHEMISTRY METHOD 11/23/2024 10:06 AM [facility] Alkaline Phosphatase 160(H) 42 - 121 unit/L LAB CHEMISTRY METHOD 11/23/2024 10:06 AM [facility] Total Protein 6.2 6.0 - 8.0 g/dL LAB CHEMISTRY METHOD 11/23/2024 10:06 AM [facility] Albumin 2.7(L) 3.2 - 5.0 g/dL LAB CHEMISTRY METHOD 11/23/2024 10:06 AM [facility] Total Bilirubin 0.5 0.0 - 1.4 mg/dL LAB CHEMISTRY METHOD 11/23/2024 10:06 AM [facility] Blood Venous blood specimen / Unknown Venipuncture / Unknown 11/23/2024 6:01 AM EST 11/23/2024 8:50 AM EST us Horace Solomon MD LAB BLOOD ORDERABLES Final Res ult [facility] [address] [place] [address], documented in this encounter Visit Diagnoses Diagnosis Encounter for other general examination documented in this encounter Additional Health Concerns Infection Onset Date Last Indicated Resolved Time Respiratory Rule-Out 11/26/2024 11/26/2024 024 6:03 PM EST Gastrointestinal Rule-Out 11/30/2024 11/30/2024 7:06 PM EST Assessment Noted Time PHQ-9 Depression Total Score: 0 10/30/20 24 10:57 PM EST documented as of this encounter Care Teams Racecourse Barrier Attendant Relationship Specialty Start Date End Date Anil Bettencourt MD [address] [place] [address] PCP - General 08/02/01 documented as of this encounter
--- OUTSIDE RECORDS SUMMARY | 2025-03-26 05:51 | XMS_ITS | Encounter Summary ---
Author Organization [facility] [place] [place] [address] Care Team Providers Care Coagulating Drying Supervisor Name Role Phone Anil Bettencourt MD Primary Care Provider [phone] Encounter Details Date Type Department Care Team (Late st Contact Info) Description 11/23/[address] [facility] - Main Lab [address] [place] [address] Horace Solomon MD [address] [place] [phone] Other diseases of stomach and duodenum; Encounter [...] LAB CHEMISTRY METHOD 11/23/2024 10:21 AM EST [facility] Urine Urine specimen obtained by clean catch procedure / Unknown 11/22/2024 7:55 PM EST 11/23/2024 9:24 AM EST Horace Solomon MD LAB URINE ORDERABLES Final Res ult Performing Organization Address City/[facility]/ZIP Co de Phone Number [facility] [address] [place] [address], [place] [phone] * Protein, urine, random (11/22/2024 7:55 PM EST) Protein, Urine 177 mg/dL LAB CHEMISTRY METHOD 11/23/2024 10:21 AM EST [facility] Urine Urine specimen obtained by clean catch procedure / Unknown 11/22/2024 7:55 PM EST 11/23/2024 9:24 AM EST us Horace Solomon MD LAB URINE ORDERABLES Final Res ult [facility] [address] [place] [address], [place] [phone] documented in this encounter Visit Diagnoses Diagnosis [...] documented as of this encounter Care Teams Coagulating Drying Supervisor Relationship Specialty Start Date End Date Anil Btetencourt MD [address] [place] [address] PCP - General 08/02/01 documented as of this encounter
[2025-03-26 06:12] LABS: Basophils Absolute Auto 0.1 X10*3/uL (0.0-0.2); Basophils Percent Auto 0.8 % (0-2); Eosinophils Absolute Auto 0.1 X10*3/uL (0.0-0.4); Eosinophils Percent Auto 1.3 % (0-4); Hematocrit 25.2 % (37.0-47.0); Hemoglobin 8.2 g/dl (12.0-16.0); Imm Gran Abs Auto 0.07 X10*3/uL (0.00-0.03); Imm Gran Pct Auto 0.8 % (0.0-0.4); Lymphocytes Absolute Auto 0.6 X10*3/uL (1.2-4.9); Lymphocytes Percent Auto 7.1 % (20-40); Mean Corpuscular HGB Conc 32.5 g/dl (31.0-35.0); Mean Corpuscular Hemoglobin 29.8 pg (27.0-33.0); Mean Corpuscular Volume 91.6 fL (80.0-98.0); Mean Platelet Volume 10.4 fL (9.4-12.3); Monocytes Absolute Auto 0.7 X10*3/uL (0.1-1.2); Monocytes Percent Auto 7.8 % (2-11); Neutrophils Absolute Auto 7.2 x10*3/uL (2.0-8.3); Neutrophils Percent Auto 82.2 % (45-73); Platelet Count 114 X10*3/uL (160-400); Red Blood Count 2.75 X10*6/uL (4.20-5.50); White Blood Count 8.8 X10*3/uL (4.8-10.8)
[2025-03-26 06:38] LABS: Anion Gap 16 (12-20); Blood Urea Nitrogen 27 mg/dL (9-16); Calcium 7.7 mg/dL (8.4-10.2); Carbon Dioxide 23 mmol/L (22-29); Chloride 104 mmol/L (96-108); Estimated Glomerular Filt Rate 17; Glucose Random 136 mg/dL (60-115); Potassium 3.8 mmol/L (3.3-5.1); Sodium 139 mmol/L (135-145)
== END 2025-03-26 05:48 | disposition home or self-care (01) ==
LOC: HO.MMNH2L 05:47
PROVIDERS: Visit Provider Student in an Organized Health Care Education/Training Program
DX: N18.6 End stage renal disease (principal); E11.9 Type 2 diabetes mellitus without complications
CPT/HCPCS: 36415; 80048; 85025

== ENCOUNTER 2025-04-16 05:36 | Outpatient (REF) | payer MEDICARE, SELFPAY ==
[2025-04-16 05:33] LABS: MANUAL DIFF FLAG NO
--- OUTSIDE RECORDS SUMMARY | 2025-04-16 05:38 | XMS_ITS | Encounter Summary ---
Author Organization [facility] Address [address] [place] [address] Care Team Providers Care Pi/Senior Research Associate Name Role Phone Anil Bettencourt MD Primary Care Provider Encounter Details Date Type Department Care Team ([facility] Contact Info) Description 11/17/2024 Lab Requisition [facility] - Main Lab [address] [place] [address] Horace Solomon MD [address] [place] [place] [address] Encounter for other general examination Social History [...] your loved ones. For example, early childhood coordinator or elderly care for an older [...] LAB CHEMISTRY METHOD 11/17/2024 12:13 PM EST [facility] Blood Venous blood specimen / Unknown Venipuncture / Unknown 11/17/2024 7:32 AM EST 11/17/2024 10:54 AM EST us Horace Solomon MD LAB BLOOD ORDERABLES Final Res ult [facility] [address] [place] [address], documented in this encounter Visit Diagnoses Diagnosis Encounter for other general examination documented in this encounter Additional Health Concerns Infection Onset Date Last Indicated Resolved Time Respiratory Rule-Out 11/26/2024 11/26/2024 024 6:03 PM EST Gastrointestinal Rule-Out 11/30/2024 11/30/2024 7:06 PM EST Assessment Noted Time PHQ-9 Depression Total Score: 0 10/30/20 24 10:57 PM EST documented as of this encounter Care Teams Pi/Senior Research Associate Relationship Specialty Start Date End Date Anil Bettencourt MD [address] [place] [address] PCP - General 08/02/01 documented as of this encounter
--- OUTSIDE RECORDS SUMMARY | 2025-04-16 05:38 | XMS_ITS | Encounter Summary ---
Author Organization [facility] Address [address] [facility] [address] [place] [address] Phone Care Team Providers Care Duck Bill Operator Name Role Phone Jacques Cline MD Primary Care Provider [phone] Reason for Visit * Reason Comments Med Refill Encounter Details Date Type Department Care Team (Late st Contact Info) Description 11/04/2024 Refill [facility] [address] [facility] [address] [place] [address] Joel Colvin MD [address] [facility] [address] [place] [phone] Social History Tobacco Use Types Packs/Day Years [...] on filedocumented in this encounter Care Teams Duck Bill Operator Relationship Specialty Start Date End Date Jacques Cline MD [address] [facility] [address] [place] [address] PCP - General Nephrology 04/29/22 documented as of this encounter
--- OUTSIDE RECORDS SUMMARY | 2025-04-16 05:38 | XMS_ITS | Encounter Summary ---
Author Organization [facility] Address [address] [place] [address] Care Team Providers Care Teacher Of The Emotionally Disturbed Name Role Phone Anil Bettencourt MD Primary Care Provider [phone] Encounter Details Date Type Department Care Team ([facility] Contact Info) Description 11/16/2024 Lab Requisition [facility] - Main Lab [address] [place] [address] Horace Solomon MD [address] [place] [address] Encounter for other general examination Social History [...] care for your loved ones. For example, childcare attendant or elderly care for an [...] ng/mL LAB CHEMISTRY METHOD 11/16/2024 5:36 PM [facility] Blood Venous blood specimen / Unknown Venipuncture / Unknown 11/16/2024 8:06 AM EST 11/16/2024 9:12 AM EST us Horace Solomon MD LAB BLOOD ORDERABLES Final Res ult [facility] [address] [place] [address], * (ABNORMAL) Iron and TIBC (11/16/2024 8:06 AM EST) Iron 32(L) 40 - 150 mcg/dL LAB CHEMISTRY METHOD 11/16/2024 5:36 PM EST [facility] TIBC 208(L) 250 - 450 mcg/dL LAB CHEMISTRY METHOD 11/16/2024 5:36 PM EST [facility] Iron Saturation 15 15 - 50 % LAB CHEMISTRY METHOD 11/16/2024 5:36 PM EST [facility] Blood Venous blood specimen / Unknown Venipuncture / Unknown 11/16/2024 8:06 AM EST 11/16/2024 9:12 AM EST Horace Solomon MD LAB BLOOD ORDERABLES Final Res ult [facility] [address] [place] [address], [place] [phone] * (ABNORMAL) Complete blood count (11/16/2024 8:06 AM EST) WBC 7.0 4.8 - 10.8 K/mcL LAB HEMETOLOGY METHOD 11/16/2024 10:12 AM [facility] RBC 3.10(L) 3.80 - 4.80 M/mcL LAB HEMETOLOGY METHOD 11/16/2024 10:12 AM [facility] Hemoglobin 9.4(L) 11.5 - 16.0 g/dL LAB HEMETOLOGY METHOD 11/16/2024 10:12 AM [facility] Hematocrit 28.8(L) 35.0 - 47.0 % LAB HEMETOLOGY METHOD 11/16/2024 10:12 AM [facility] MCV 92.0 79.0 - 98.0 FL LAB HEMETOLOGY METHOD 11/16/2024 10:12 AM [facility] MCH 30.0 27.0 - 32.0 pcg LAB HEMETOLOGY METHOD 11/16/2024 10:12 AM [facility] MCHC 32.6 32.0 - 37.0 g/dL LAB HEMETOLOGY METHOD 11/16/2024 10:12 AM [facility] RDW 13.2 11.0 - 15.0 % LAB HEMETOLOGY METHOD 11/16/2024 10:12 AM [facility] Platelets 334 130 - 400 K/mcL LAB HEMETOLOGY METHOD 11/16/2024 10:12 AM EST [facility] MPV 10.6 7.0 - 11.0 FL LAB HEMETOLOGY METHOD 11/16/2024 10:12 AM EST [facility] NRBC 0.0 <1.0 % LAB HEMETOLOGY METHOD 11/16/2024 10:12 AM EST [facility] NRBC Absolute 0.00 <0.10 K/mcL LAB HEMETOLOGY METHOD 11/16/2024 10:12 AM [facility] Blood Venous blood specimen / Unknown Venipuncture / Unknown 11/16/2024 8:06 AM EST 11/16/2024 9:12 AM EST us Horace Solomon MD LAB BLOOD ORDERABLES Final Res ult [facility] [address] [place] [address], [place] [phone] * (ABNORMAL) Comprehensive metabolic panel (11/16/2024 8:06 AM EST) Sodium 141 133 - 145 mmol/L LAB CHEMISTRY METHOD 11/16/2024 10:46 AM [facility] Potassium 4.1 3.5 - 5.5 mmol/L LAB CHEMISTRY METHOD 11/16/2024 10:46 AM [facility] Chloride 105 96 - 110 mmol/L LAB CHEMISTRY METHOD 11/16/2024 10:46 AM [facility] CO2 25 21 - 32 mmol/L LAB CHEMISTRY METHOD 11/16/2024 10:46 AM [facility] Anion Gap 11 3 - 11 LAB CHEMISTRY METHOD 11/16/2024 10:46 AM [facility] Glucose 153(H) 70 - 100 mg/dL LAB CHEMISTRY METHOD 11/16/2024 10:46 AM [facility] BUN 61(H) 5 - 25 mg/dL LAB CHEMISTRY METHOD 11/16/2024 10:46 AM [facility] Creatinine 3.25(H) 0.50 - 1.10 mg/dL LAB CHEMISTRY METHOD 11/16/2024 10:46 AM [facility] eGFR 14(L) >=60 mL/min/1. 73m2 LAB CHEMISTRY METHOD 11/16/2024 10:46 AM [facility] Comment:Calculation based on the??Chronic Kidney Disease Epidemiology Collaboration (CKD-EPI) equation refit??without adjustment for race. BUN/Creatinine Ratio 18.8 LAB CHEMISTRY METHOD 11/16/2024 10:46 AM [facility] Calcium 9.1 8.5 - 10.5 mg/dL LAB CHEMISTRY METHOD 11/16/2024 10:46 AM [facility] AST (SGOT) 10 10 - 42 unit/L LAB CHEMISTRY METHOD 11/16/2024 10:46 AM [facility] ALT (SGPT) 11 10 - 60 unit/L LAB CHEMISTRY METHOD 11/16/2024 10:46 AM [facility] Alkaline Phosphatase 150(H) 42 - 121 unit/L LAB CHEMISTRY METHOD 11/16/2024 10:46 AM [facility] Total Protein 6.6 6.0 - 8.0 g/dL LAB CHEMISTRY METHOD 11/16/2024 10:46 AM [facility] Albumin 3.0(L) 3.2 - 5.0 g/dL LAB CHEMISTRY METHOD 11/16/2024 10:46 AM [facility] Total Bilirubin 0.8 0.0 - 1.4 mg/dL LAB CHEMISTRY METHOD 11/16/2024 10:46 AM [facility] Blood Venous blood specimen / Unknown Venipuncture / Unknown 11/16/2024 8:06 AM EST 11/16/2024 9:12 AM EST us Horace Solomon MD LAB BLOOD ORDERABLES Final Res ult [facility] [address] [place] [address], documented in this encounter Visit Diagnoses Diagnosis Encounter for other general examination documented in this encounter Additional Health Concerns Infection Onset Date Last Indicated Resolved Time Respiratory Rule-Out 11/26/2024 11/26/2024 024 6:03 PM EST Gastrointestinal Rule-Out 11/30/2024 11/30/2024 7:06 PM EST Assessment Noted Time PHQ-9 Depression Total Score: 0 10/30/20 24 10:57 PM EST documented as of this encounter Care Teams Teacher Of The Emotionally Disturbed Relationship Specialty Start Date End Date Anil Bettencourt MD [address] [place] [address] PCP - General 08/02/01 documented as of this encounter
--- OUTSIDE RECORDS SUMMARY | 2025-04-16 05:38 | XMS_ITS | Encounter Summary ---
Author Organization [facility] Address [address] [place] [address] Care Team Providers Care Ict Support Engineer Name Role Phone Anil Bettencourt MD Primary Care Provider [phone] Encounter Details Date Type Department Care Team (Latest Contact Info) Description 01/06/2025 Lab Requisition [facility] - Main Lab [address] [place] [address] Tyree Amador MD [address] [place] [phone] Type 2 diabetes mellitus with hyperglycemia [...] for your loved ones. For example, children's nursery assistant or elderly care for an older [...] EST Type 2 diabetes mellitus with hyperglycemia ([facility]/HCC) Chronic kidney disease, unspecified BASIC METABOLIC PANEL Routine 01/08/2025 6:08 AM EST Type 2 diabetes mellitus with hyperglycemia ([facility]/HCC) Chronic kidney disease, unspecified documented in this encounter Results * (ABNORMAL) Complete blood count (01/08/2025 6:09 AM EST) WBC 6.4 4.8 - 10.8 K/mcL LAB HEMETOLOGY METHOD 01/08/2025 2:34 PM [facility] RBC 3.00(L) 3.80 - 4.80 M/mcL LAB HEMETOLOGY METHOD 01/08/2025 2:34 PM [facility] Hemoglobin 8.8(L) 11.5 - 16.0 g/dL LAB HEMETOLOGY METHOD 01/08/2025 2:34 PM [facility] Hematocrit 27.9(L) 35.0 - 47.0 % LAB HEMETOLOGY METHOD 01/08/2025 2:34 PM [facility] MCV 94.6 79.0 - 98.0 FL LAB HEMETOLOGY METHOD 01/08/2025 2:34 PM [facility] MCH 29.8 27.0 - 32.0 pcg LAB HEMETOLOGY METHOD 01/08/2025 2:34 PM [facility] MCHC 31.5(L) 32.0 - 37.0 g/dL LAB HEMETOLOGY METHOD 01/08/2025 2:34 PM [facility] RDW 14.0 11.0 - 15.0 % LAB HEMETOLOGY METHOD 01/08/2025 2:34 PM [facility] Platelets 253 130 - 400 K/mcL [...] K/mcL LAB HEMETOLOGY METHOD 01/08/2025 2:34 PM [facility] Blood Venous blood specimen / Unknown Venipuncture / Unknown 01/08/2025 6:09 AM EST 01/08/2025 1:30 PM EST Tyree Amador MD LAB BLOOD ORDERABLES Final Resu lt [facility] [address] [place] [address], [place] [phone] * (ABNORMAL) Basic metabolic panel (01/08/2025 6:08 AM EST) Sodium 142 133 - 145 mmol/L LAB CHEMISTRY METHOD 01/08/2025 4:38 PM [facility] Potassium 3.7 3.5 - 5.5 mmol/L LAB CHEMISTRY METHOD 01/08/2025 4:38 PM [facility] Chloride 108 96 - 110 mmol/L LAB CHEMISTRY METHOD 01/08/2025 4:38 PM [facility] CO2 23 21 - 32 mmol/L LAB CHEMISTRY METHOD 01/08/2025 4:38 PM [facility] Anion Gap 11 3 - 11 LAB CHEMISTRY METHOD 01/08/2025 4:38 PM [facility] Glucose 93 70 - 100 mg/dL LAB CHEMISTRY METHOD 01/08/2025 4:38 PM EST [facility] BUN 41(H) 5 - 25 mg/dL LAB CHEMISTRY METHOD 01/08/2025 4:38 PM [facility] Creatinine 2.58(H) 0.50 - 1.10 mg/dL LAB CHEMISTRY METHOD 01/08/2025 4:38 PM [facility] eGFR 18(L) >=60 mL/min/1. 73m2 LAB CHEMISTRY METHOD 01/08/2025 4:38 PM [facility] Comment:Calculation based on the??Chronic Kidney Disease Epidemiology Collaboration (CKD-EPI) equation refit??without adjustment for race. BUN/Creatinine Ratio 15.9 LAB CHEMISTRY METHOD 01/08/2025 4:38 PM [facility] Calcium 8.6 8.5 - 10.5 mg/dL LAB CHEMISTRY METHOD 01/08/2025 4:38 PM [facility] Blood Venous blood specimen / Unknown Venipuncture / Unknown 01/08/2025 6:08 AM EST 01/08/2025 1:32 PM EST us Tyree Amador MD LAB BLOOD ORDERABLES Final Resu lt [facility] [address] [place] [address], documented in this encounter Visit Diagnoses Diagnosis Type 2 diabetes mellitus with hyperglycemia (CMS/HCC V24, CMS/HCC V28) Chronic kidney disease, unspecified documented in this encounter Additional Health Concerns Assessment Noted Time PHQ-9 Depression Total Score: 0 10/30/20 24 10:57 PM EST documented as of this encounter Care Teams Ict Support Engineer Relationship Specialty Start Date End Date Anil Bettencourt MD [address] [place] [address] PCP - General 08/02/01 documented as of this encounter
--- OUTSIDE RECORDS SUMMARY | 2025-04-16 05:38 | XMS_ITS | Encounter Summary ---
Author Organization [facility] Address [address] [place] [address] Care Team Providers Care Energy Broker Name Role Phone Anil Bettencourt MD Primary Care Provider [phone] Encounter Details Date Type Department Care Team ([facility] Contact Info) Description 11/20/2024 Lab Requisition [facility] - Main Lab [address] [place] [address] Horace Solomon MD [address] [place] [address] Encounter for other general examination Social History [...] for your loved ones. For example, children's program coordinator or elderly care for an older [...] K/mcL LAB HEMETOLOGY METHOD 11/20/2024 11:01 AM [facility] RBC 2.80(L) 3.80 - 4.80 M/mcL LAB HEMETOLOGY METHOD 11/20/2024 11:01 AM [facility] Hemoglobin 8.4(L) 11.5 - 16.0 g/dL LAB HEMETOLOGY METHOD 11/20/2024 11:01 AM [facility] Hematocrit 25.4(L) 35.0 - 47.0 % LAB HEMETOLOGY METHOD 11/20/2024 11:01 AM [facility] MCV 91.4 79.0 - 98.0 FL LAB HEMETOLOGY METHOD 11/20/2024 11:01 AM [facility] MCH 30.2 27.0 - 32.0 pcg LAB HEMETOLOGY METHOD 11/20/2024 11:01 AM [facility] MCHC 33.1 32.0 - 37.0 g/dL LAB HEMETOLOGY METHOD 11/20/2024 11:01 AM [facility] RDW 13.2 11.0 - 15.0 % LAB HEMETOLOGY METHOD 11/20/2024 11:01 AM [facility] Platelets 335 130 - 400 K/mcL LAB HEMETOLOGY METHOD 11/20/2024 11:01 AM [facility] MPV 10.3 7.0 - [...] [facility] [address] [place] [address], [place] [phone] * (ABNORMAL) Basic metabolic panel (11/20/2024 6:45 AM EST) Sodium 137 133 - 145 mmol/L LAB CHEMISTRY METHOD 11/20/2024 11:21 AM [facility] Potassium 3.7 3.5 - 5.5 mmol/L LAB CHEMISTRY METHOD 11/20/2024 11:21 AM [facility] Chloride 101 96 - 110 mmol/L LAB CHEMISTRY METHOD 11/20/2024 11:21 AM [facility] CO2 29 21 - 32 mmol/L LAB CHEMISTRY METHOD 11/20/2024 11:21 AM [facility] Anion Gap 7 3 - 11 LAB CHEMISTRY METHOD 11/20/2024 11:21 AM [facility] Glucose 110(H) 70 - 100 mg/dL LAB CHEMISTRY METHOD 11/20/2024 11:21 AM [facility] BUN 68(H) 5 - 25 mg/dL LAB CHEMISTRY METHOD 11/20/2024 11:21 AM [facility] Creatinine 3.68(H) 0.50 - 1.10 mg/dL [...] mg/dL LAB CHEMISTRY METHOD 11/20/2024 11:21 AM [facility] Blood Venous blood specimen / Unknown Venipuncture / Unknown 11/20/2024 6:45 AM EST 11/20/2024 8:25 AM EST us Horace Solomon MD LAB BLOOD ORDERABLES Final Res ult [facility] [address] [place] [address], documented in this encounter Visit Diagnoses Diagnosis Encounter for other general examination documented in this encounter Additional Health Concerns Infection Onset Date Last Indicated Resolved Time Respiratory Rule-Out 11/26/2024 11/26/2024 024 6:03 PM EST Gastrointestinal Rule-Out 11/30/2024 11/30/2024 7:06 PM EST Assessment Noted Time PHQ-9 Depression Total Score: 0 10/30/20 24 10:57 PM EST documented as of this encounter Care Teams Energy Broker Relationship Specialty Start Date End Date Anil Bettencourt MD [address] [place] [phone] PCP - General 08/02/01 documented as of this encounter
--- OUTSIDE RECORDS SUMMARY | 2025-04-16 05:38 | XMS_ITS | Encounter Summary ---
Author Organization [facility] Address [address] [address] Phone Care Team Providers Care Wood Shingle Roofer Name Role Phone Jacques Cline MD Primary Care Provider [phone] Encounter Details Date Type Department Care Team (Late st Contact Info) Description 04/12/2025 Treatment [facility]. [address] [address] Jaylene Siddiqui MD [address] [address] End stage renal disease; Dependence [...] Dialysis Note - Jaylene Siddiqui MD - 04/12/2025 12:00 AM EDT BASIC NOTE Patient: Radha Wright : 1945 Note Author: JAYLENE SIDDIQUI MD Service Date: 04/12/2025 This patient was personally seen for a basic visit as part of routine monthly dialysis care for end stage renal disease. Attending Accounting Assistant: JAYLENE SIDDIQUI MD Dialysis Location: [facility] Schedule: Shift: 1 OVERVIEW Patient is stable. ADEQUACY ASSESSMENT Kt/V, Natural Log 1.84 (04/05/25) 1.76 (03/06/25) UREA REDUCTION RATIO (%) 81 (04/05/25) 80 (03/06/25) BUN 31 (04/05/25) 61 (03/06/25) BUN Post Dialysis 6 (04/05/25) 12 (03/06/25) Creatinine 2.76 (04/05/25) 5.76 (03/06/25) Bicarbonate (CO2) 28 (04/05/25) 23 (03/06/25) Sodium 136 (04/05/25) 135 (03/06/25) ANEMIA ASSESSMENT Hgb 6.6 (04/05/25) 7.5 (03/24/25) 8.6 (03/22/25) Iron Saturation (TSat) 32 (04/05/25) 20 (03/06/25) Ferritin 1,537 (04/05/25) 685 (03/06/25) Iron 35 (04/05/25) 33 (03/06/25) TIBC 108 (04/05/25) 168 (03/06/25) MCV 97.3 (04/05/25) 91.1 (03/06/25) Platelets 280 (04/05/25) 236 (03/06/25) BMM ASSESSMENT Calcium, Adjusted Total 8.8 04/05/25 8.8 03/06/25 Calcium 8.0 04/05/25 8.2 03/06/25 Phosphorus, Serum 2.9 04/05/25 7.4 03/06/25 Ca*PO4 23.2 04/05/25 60.7 03/06/25 PTH, Intact 203 03/06/25 Vitamin D, 25-Hydroxy 33 03/06/25 Magnesium 2.2 04/05/25 2.4 03/06/25 Alkaline Phosphatase 140 04/05/25 165 03/06/25 Aluminum 21 03/06/25 NUTRITION ASSESSMENT Albumin 3.0 04/05/25 3.3 03/06/25 Potassium 4.0 04/05/25 5.6 03/06/25 Hemoglobin A1C 6.0 03/06/25 ADDITIONAL LABS White Blood Cells 6.4 (04/05/25) 9.2 (03/06/25) Cholesterol 108 (03/06/25) HDL 17 (03/06/25) LDL-Calc 55 (03/06/25) Triglycerides 180 (03/06/25) Hep B Surface Antibody <4 (03/06/25) Uric Acid 10.2 (03/06/25) Signed by: JAYLENE SIDDIQUI MD on 04/12/2025 at 10:08:01 PM Transcribed by: JAYLENE SIDDIQUI MD on 04/12/2025 at 10:08:01 PM documented in this encounter Plan of Treatment Not on file documented as of this encounter Visit Diagnoses Diagnosis End stage renal disease Dependence on renal dialysis documented in this encounter Care Teams Wood Shingle Roofer Relationship Specialty [place] [address] [place] [id number] PCP - General Nephrology 04/29/22 documented as of this encounter
--- OUTSIDE RECORDS SUMMARY | 2025-04-16 05:38 | XMS_ITS | Encounter Summary ---
Author Organization [facility] Address [address] [place] [address] Care Team Providers Care Installation Supervisor Name Role Phone Anil Bettencourt MD Primary Care Provider [phone] Encounter Details Date Type Department Care Team ([facility] Contact Info) Description 11/18/[address] [facility] - Main Lab [address] [place] [address] Hoarce Solomon MD [address] [place] [address] Encounter for other general examination Social History [...] for your loved ones. For example, child psychologist or elderly care for an older [...] CBC auto differential (11/18/2024 6:02 AM EST) [facility] WBC 7.0 4.8 - 10.8 K/mcL LAB HEMETOLOGY METHOD 11/18/2024 10:18 AM [facility] RBC 3.00(L) 3.80 - 4.80 M/mcL LAB HEMETOLOGY METHOD 11/18/2024 10:18 AM [facility] LAB Hemoglobin 8.8(L) 11.5 - 16.0 g/dL LAB HEMETOLOGY METHOD 11/18/2024 10:18 AM [facility] LAB Hematocrit 26.8(L) 35.0 - 47.0 % LAB HEMETOLOGY METHOD 11/18/2024 10:18 AM [facility] LAB MCV 90.8 79.0 - 98.0 FL LAB HEMETOLOGY METHOD 11/18/2024 10:18 AM [facility] LAB MCH 29.8 27.0 - 32.0 pcg LAB HEMETOLOGY METHOD 11/18/2024 10:18 AM [facility] LAB MCHC 32.8 32.0 - 37.0 g/dL LAB HEMETOLOGY METHOD 11/18/2024 10:18 AM [facility] LAB RDW 13.2 11.0 - 15.0 % LAB HEMETOLOGY METHOD 11/18/2024 10:18 AM [facility] LAB Platelets 352 130 - 400 K/mcL LAB HEMETOLOGY METHOD 11/18/2024 10:18 AM [facility] LAB MPV 10.5 7.0 - 11.0 FL LAB HEMETOLOGY METHOD 11/18/2024 10:18 AM [facility] NRBC 0.0 <1.0 % LAB HEMETOLOGY METHOD 11/18/2024 10:18 AM [facility] LAB NRBC Absolute 0.00 <0.10 K/mcL LAB HEMETOLOGY METHOD 11/18/2024 10:18 AM [facility] Neutrophils Relative 74.3 % LAB HEMETOLOGY METHOD 11/18/2024 10:18 AM [facility] Lymphocytes Relative 9.5 % LAB HEMETOLOGY METHOD 11/18/2024 10:18 AM [facility] Monocytes Relative 11.1 % LAB HEMETOLOGY METHOD 11/18/2024 10:18 AM [facility] Eosinophils Relative 2.7 % LAB HEMETOLOGY METHOD 11/18/2024 10:18 AM [facility] Basophils Relative 1.0 % LAB HEMETOLOGY METHOD 11/18/2024 10:18 AM [facility] Immature Granulocytes Relative 1.4 % LAB HEMETOLOGY METHOD 11/18/2024 10:18 AM [facility] Neutrophils Absolute 5.23 1.50 - 7.00 K/mcL LAB HEMETOLOGY METHOD 11/18/2024 10:18 AM [facility] Lymphocytes Absolute 0.67(L) 1.00 - 5.00 K/mcL LAB HEMETOLOGY METHOD 11/18/2024 10:[address] [facility] Monocytes Absolute 0.78 0.20 - 1.00 K/[facility] LAB HEMETOLOGY METHOD 11/18/2024 10:[address] [facility] Eosinophils Absolute 0.19 0.00 - 0.50 K/[facility] LAB HEMETOLOGY METHOD 11/18/2024 10:[address] [facility] Basophils Absolute 0.07 0.00 - 0.20 K/[facility] LAB HEMETOLOGY METHOD 11/18/2024 10:18 AM EST [facility] Immature Granulocytes Absolute 0.10(H) 0.00 - 0.03 K/[facility] LAB HEMETOLOGY METHOD 11/18/2024 10:[address] [facility] Blood Venous blood specimen / Unknown Venipuncture / Unknown 11/18/2024 6:02 AM EST 11/18/2024 9:16 AM EST Horace Solomon MD LAB BLOOD ORDERABLES Final Res ult [facility] [address] [place] [address], [place] [phone] * Magnesium (11/18/2024 6:02 AM EST) Magnesium 2.0 1.9 - 2.6 mg/dL LAB CHEMISTRY METHOD 11/18/2024 10:[address] [facility] Blood Venous blood specimen / Unknown Venipuncture / Unknown 11/18/2024 6:02 AM EST 11/18/2024 9:16 AM EST us Horace Solomon MD LAB BLOOD ORDERABLES Final Res ult [facility] [address] [place] [address], [place] [phone] * Folate (11/18/2024 6:02 AM EST) Pathologist [facility] Folate 7.3 2.8 - 17.0 ng/ml LAB CHEMISTRY METHOD 11/18/2024 11:[address] [facility] Blood Venous blood specimen / Unknown Venipuncture / Unknown 11/18/2024 6:02 AM EST 11/18/2024 9:16 AM EST Horace Solomon MD LAB BLOOD ORDERABLES Final Res ult [facility] [address] [place] [address], [place] [phone] * (ABNORMAL) Vitamin B12 (11/18/2024 6:02 AM EST) [facility] Vitamin B-12 951(H) 250 - 900 pcg/mL LAB CHEMISTRY METHOD 11/18/2024 11:[address] [facility] Blood Venous blood specimen / Unknown Venipuncture / Unknown 11/18/2024 6:02 AM EST 11/18/2024 9:16 AM EST Horace Solomon MD LAB BLOOD ORDERABLES Final Res ult [facility] [address] [place] [address], [place] [phone] * (ABNORMAL) Basic metabolic panel (11/18/2024 6:02 AM EST) [facility] Sodium 136 133 - 145 mmol/L LAB CHEMISTRY METHOD 11/18/2024 10:[address] [facility] Potassium 3.8 3.5 - 5.5 mmol/L LAB CHEMISTRY METHOD 11/18/2024 10:[address] [facility] Chloride 102 96 - 110 mmol/L LAB CHEMISTRY METHOD 11/18/2024 10:[address] [facility] CO2 27 21 - 32 mmol/L LAB CHEMISTRY METHOD 11/18/2024 10:40 AM [facility] Anion Gap 7 3 - 11 LAB CHEMISTRY METHOD 11/18/2024 10:40 AM [facility] Glucose 102(H) 70 - 100 mg/dL LAB CHEMISTRY METHOD 11/18/2024 10:40 AM [facility] BUN 64(H) 5 - 25 mg/dL LAB CHEMISTRY METHOD 11/18/2024 10:40 AM [facility] Creatinine 3.36(H) 0.50 - 1.10 mg/dL LAB CHEMISTRY METHOD 11/18/2024 10:40 AM [facility] eGFR 13(L) >=60 mL/min/1. 73m2 LAB CHEMISTRY METHOD 11/18/2024 10:40 AM [facility] LAB Comment:Calculation based on the??Chronic Kidney Disease Epidemiology Collaboration (CKD-EPI) equation refit??without adjustment for race. BUN/Creatinine Ratio 19.0 LAB CHEMISTRY METHOD 11/18/2024 10:40 AM [facility] Calcium 9.0 8.5 - 10.5 mg/dL LAB CHEMISTRY METHOD 11/18/2024 10:40 AM [facility] Blood Venous blood specimen / Unknown Venipuncture / Unknown 11/18/2024 6:02 AM EST 11/18/2024 9:16 AM EST us Horace Solomon MD LAB BLOOD ORDERABLES Final Res ult [facility] [address] [place] [address], documented in this encounter Visit Diagnoses Diagnosis Encounter for other general examination documented in this encounter Additional Health Concerns Infection Onset Date Last Indicated Resolved Time Respiratory Rule-Out 11/26/2024 11/26/2024 024 6:03 PM EST Gastrointestinal Rule-Out 11/30/2024 11/30/2024 7:06 PM EST Assessment Noted Time PHQ-9 Depression Total Score: 0 10/30/20 10:57 PM EST documented as of this encounter Care Teams Installation Supervisor Relationship Specialty Start Date End Date Anil Bettencourt MD [address] [place] [address] PCP - General 08/02/01 documented as of this encounter
--- OUTSIDE RECORDS SUMMARY | 2025-04-16 05:38 | XMS_ITS | Encounter Summary ---
Author Organization [facility] [place] [address] Care Team Providers Care Client Relationship Manager Name Role Phone Anil Bettencourt MD Primary Care Provider [phone] Encounter Details Date Type Department Care Team (Late st Contact Info) Description 01/04/2025 Lab Requisition [facility] - Main Lab [address] [place] [address] Tyree Amador MD [address] [place] [address] Chronic kidney disease, unspecified Social History [...] for your loved ones. For example, child therapist or elderly care for an older [...] mmol/L LAB CHEMISTRY METHOD 01/04/2025 12:[address] [facility] Potassium 3.7 3.5 - 5.5 mmol/L LAB CHEMISTRY METHOD 01/04/2025 12:[address] [facility] Chloride 104 96 - 110 mmol/L LAB CHEMISTRY METHOD 01/04/2025 12:[address] [facility] CO2 26 21 - 32 mmol/L LAB CHEMISTRY METHOD 01/04/2025 12:[address] [facility] Anion Gap 11 3 - 11 LAB CHEMISTRY METHOD 01/04/2025 12:[address] [facility] Glucose 70 70 - 100 mg/dL LAB CHEMISTRY METHOD 01/04/2025 12:[address] [facility] BUN 45(H) 5 - 25 mg/dL LAB CHEMISTRY METHOD 01/04/2025 12:[address] [facility] Creatinine 3.05(H) 0.50 - 1.10 mg/dL LAB CHEMISTRY METHOD 01/04/2025 12:[address] [facility] eGFR 15(L) >=60 mL/min/1. 73m2 LAB CHEMISTRY METHOD 01/04/2025 12:[address] [facility] Comment:Calculation based on the??Chronic Kidney Disease Epidemiology Collaboration (CKD-EPI) equation refit??without adjustment for race. BUN/Creatinine Ratio 14.8 LAB CHEMISTRY METHOD 01/04/2025 12:[address] [facility] Calcium 8.2(L) 8.5 - 10.5 mg/dL LAB CHEMISTRY METHOD 01/04/2025 12:[address] [facility] AST (SGOT) 12 10 - 42 unit/L LAB CHEMISTRY METHOD 01/04/2025 12:[address] [facility] ALT (SGPT) 14 10 - 60 unit/L LAB CHEMISTRY METHOD 01/04/2025 12:[address] [facility] Alkaline Phosphatase 115 42 - 121 unit/L LAB CHEMISTRY METHOD 01/04/2025 12:[address] [facility] Total Protein 6.2 6.0 - 8.0 g/dL LAB CHEMISTRY METHOD 01/04/2025 12:[address] [facility] Albumin 3.2 3.2 - 5.0 g/dL LAB CHEMISTRY METHOD 01/04/2025 12:[address] [facility] Total Bilirubin 0.6 0.0 - 1.4 mg/dL LAB CHEMISTRY METHOD 01/04/2025 12:[address] [facility] Blood Venous blood specimen / Unknown Venipuncture / Unknown 01/04/2025 5:38 AM EST 01/04/2025 11:15 AM EST us Tyree Amador MD LAB BLOOD ORDERABLES Final Resu lt [facility] [address] [place] [address], * (ABNORMAL) Complete blood count (01/04/2025 5:38 AM EST) WBC 5.6 4.8 - 10.8 K/mcL LAB HEMETOLOGY METHOD 01/04/2025 11:[address] [facility] RBC 3.00(L) 3.80 - 4.80 M/mcL LAB HEMETOLOGY METHOD 01/04/2025 11:[address] [facility] Hemoglobin 9.0(L) 11.5 - 16.0 g/dL LAB HEMETOLOGY METHOD 01/04/2025 11:[address] [facility] Hematocrit 27.6(L) 35.0 - 47.0 % LAB HEMETOLOGY METHOD 01/04/2025 11:[address] [facility] MCV 92.0 79.0 - 98.0 FL LAB HEMETOLOGY METHOD 01/04/2025 11:[address] [facility] MCH 30.0 27.0 - 32.0 pcg LAB HEMETOLOGY METHOD 01/04/2025 11:[address] [facility] MCHC 32.6 32.0 - 37.0 g/dL LAB HEMETOLOGY METHOD 01/04/2025 11:[address] [facility] RDW 13.8 11.0 - 15.0 % LAB HEMETOLOGY METHOD 01/04/2025 11:[address] [facility] Platelets 201 130 - 400 K/mcL LAB HEMETOLOGY METHOD 01/04/2025 11:[address] [facility] MPV 10.3 7.0 - 11.0 FL LAB HEMETOLOGY METHOD 01/04/2025 11:[address] [facility] NRBC 0.0 <1.0 % LAB HEMETOLOGY METHOD 01/04/2025 11:[address] [facility] NRBC Absolute 0.00 <0.10 K/mcL LAB HEMETOLOGY METHOD 01/04/2025 11:[address] [facility] Blood Venous blood specimen / Unknown Venipuncture / Unknown 01/04/2025 5:38 AM EST 01/04/2025 11:15 AM EST us Tyree Amador MD LAB BLOOD ORDERABLES Final Resu lt [facility] LAB [address] [place] [address], documented in this encounter Visit Diagnoses Diagnosis Chronic kidney disease, unspecified documented in this encounter Additional Health Concerns Assessment Noted Time PHQ-9 Depression Total Score: 0 10/30/20 24 10:57 PM EST documented as of this encounter Care Teams Client Relationship Manager Relationship Specialty Start Date End Date Anil Bettencourt MD [address] [place] [address] PCP - General 08/02/01 documented as of this encounter
--- OUTSIDE RECORDS SUMMARY | 2025-04-16 05:38 | XMS_ITS | Encounter Summary ---
Author Organization [facility] [place] [address] Care Team Providers Care Glass Washer Name Role Phone Anil Bettencourt MD Primary Care Provider Encounter Details Date Type Department Care Team (Late st Contact Info) Description 01/04/[address] [facility] - Main Lab [address] [facility] [place] [address] Social History Tobacco Use Types [...] care for your loved ones. For example, director child abuse therapy or elderly care for an older adult? [...] as of this encounter Care Teams Glass Washer Relationship Specialty Start Date End Date Anil Bettencourt MD [address] [place] [address] PCP - General 08/02/01 documented as of this encounter
--- OUTSIDE RECORDS SUMMARY | 2025-04-16 05:39 | XMS_ITS | Encounter Summary ---
Author Organization [facility] Address [address] [place] [address] Care Team Providers Care Coverstitch Elastic Attacher Name Role Phone Anil Bettencourt MD Primary Care Provider [phone] Encounter Details Date Type Department Care Team (Late st Contact Info) Description 11/23/2024 Lab Requisition [facility] - Main Lab [address] [place] [address] Horace Solomon MD [address] [place] [phone] Other diseases of stomach and duodenum; Encounter [...] your loved ones. For example, child care associate or elderly care for an older adult? [...] LAB CHEMISTRY METHOD 11/23/2024 10:21 AM EST [facility] Urine Urine specimen obtained by clean catch procedure / Unknown 11/22/2024 7:55 PM EST 11/23/2024 9:24 AM EST Horace Solomon MD LAB URINE ORDERABLES Final Res ult Performing Organization Address City/[facility]/ZIP Co de Phone Number [facility] [address] [place] [address], [place] [phone] * Protein, urine, random (11/22/2024 7:55 PM EST) Protein, Urine 177 mg/dL LAB CHEMISTRY METHOD 11/23/2024 10:21 AM EST [facility] Urine Urine specimen obtained by clean catch procedure / Unknown 11/22/2024 7:55 PM EST 11/23/2024 9:24 AM EST us Hoarce Solomon MD LAB URINE ORDERABLES Final Res ult [facility] [address] [place] [address], [place] [phone] documented in this encounter Visit Diagnoses Diagnosis [...] documented as of this encounter Care Teams Coverstitch Elastic Attacher Relationship Specialty Start Date End Date Anil Bettencourt MD [address] [place] [id number] PCP - General 08/02/01 documented as of this encounter
--- OUTSIDE RECORDS SUMMARY | 2025-04-16 05:39 | XMS_ITS | Encounter Summary ---
Author Organization [facility] [place] [address] Care Team Providers Care Network Support Name Role Phone Anil Bettencourt MD Primary Care Provider [phone] Encounter Details Date Type Department Care Team (Late st Contact Info) Description 11/20/2024 Lab Requisition [facility] - Main Lab [address] [facility] [place] [address] Social History Tobacco Use Types [...] as of this encounter Care Teams Network Support Relationship Specialty Start Date End Date Anil Bettencourt MD [address] [place] [address] PCP - General 08/02/01 documented as of this encounter
--- OUTSIDE RECORDS SUMMARY | 2025-04-16 05:39 | XMS_ITS | Encounter Summary ---
Author Organization [facility] Address [address] [place] [address] Care Team Providers Care Fretted Instruments Inspector Name Role Phone Anil Bettencourt MD Primary Care Provider [phone] Encounter Details Date Type Department Care Team (Latest Contact Info) Description 01/13/2025 Lab Requisition [facility] - Main Lab [address] [place] [address] Tyree Amador MD [address] [place] [address] Chronic kidney disease, unspecified; Type 2 [...] care for your loved ones. For example, attendant children's institution or elderly care for an older adult? [...] mmol/L LAB CHEMISTRY METHOD 01/15/2025 10:44 AM [facility] Potassium 4.0 3.5 - 5.5 mmol/L LAB CHEMISTRY METHOD 01/15/2025 10:44 AM [facility] Comment:Hemolysis present Chloride 109 96 - 110 mmol/L LAB CHEMISTRY METHOD 01/15/2025 10:44 AM [facility] CO2 25 21 - 32 mmol/L LAB CHEMISTRY METHOD 01/15/2025 10:44 AM [facility] Anion Gap 9 3 - 11 LAB CHEMISTRY METHOD 01/15/2025 10:44 AM [facility] Glucose 123(H) 70 - 100 mg/dL LAB CHEMISTRY METHOD 01/15/2025 10:44 AM [facility] BUN 42(H) 5 - 25 mg/dL LAB CHEMISTRY METHOD 01/15/2025 10:44 AM [facility] Creatinine 2.88(H) 0.50 - 1.10 mg/dL LAB CHEMISTRY METHOD 01/15/2025 10:44 AM [facility] eGFR 16(L) >=60 mL/min/1. 73m2 LAB CHEMISTRY METHOD 01/15/2025 10:44 AM [facility] Comment:Calculation based on the??Chronic Kidney Disease Epidemiology Collaboration (CKD-EPI) equation refit??without adjustment for race. BUN/Creatinine Ratio 14.6 LAB CHEMISTRY METHOD 01/15/2025 10:44 AM [facility] Calcium 8.5 8.5 - 10.5 mg/dL LAB CHEMISTRY METHOD 01/15/2025 10:44 AM [facility] AST (SGOT) 21 10 - 42 unit/L LAB CHEMISTRY METHOD 01/15/2025 10:44 AM [facility] Comment:Hemolysis present ALT (SGPT) 12 10 - 60 unit/L LAB CHEMISTRY METHOD 01/15/2025 10:44 AM [facility] Alkaline Phosphatase 157(H) 42 - 121 unit/L LAB CHEMISTRY METHOD 01/15/2025 10:44 AM [facility] Total Protein 6.4 6.0 - 8.0 g/dL LAB CHEMISTRY METHOD 01/15/2025 10:44 AM [facility] Albumin 3.0(L) 3.2 - 5.0 g/dL LAB CHEMISTRY METHOD 01/15/2025 10:44 AM [facility] Total Bilirubin 0.7 0.0 - 1.4 mg/dL LAB CHEMISTRY METHOD 01/15/2025 10:44 AM [facility] Blood Venous blood specimen / Unknown Venipuncture / Unknown 01/15/2025 6:08 AM EST 01/15/2025 9:46 AM EST us Tyree Amador MD LAB BLOOD ORDERABLES Final Resu lt [facility] [address] [place] [address], * (ABNORMAL) Complete blood count (01/15/2025 6:08 AM EST) WBC 6.1 4.8 - 10.8 K/mcL LAB HEMETOLOGY METHOD 01/15/2025 10:33 AM [facility] RBC 2.80(L) 3.80 - 4.80 M/mcL LAB HEMETOLOGY METHOD 01/15/2025 10:33 AM [facility] Hemoglobin 8.4(L) 11.5 - 16.0 g/dL LAB HEMETOLOGY METHOD 01/15/2025 10:33 AM [facility] Hematocrit 26.2(L) 35.0 - 47.0 % LAB HEMETOLOGY METHOD 01/15/2025 10:33 AM [facility] MCV 93.6 79.0 - 98.0 FL LAB HEMETOLOGY METHOD 01/15/2025 10:33 AM [facility] MCH 30.0 27.0 - 32.0 pcg LAB HEMETOLOGY METHOD 01/15/2025 10:33 AM [facility] MCHC 32.1 32.0 - 37.0 g/dL LAB HEMETOLOGY METHOD 01/15/2025 10:33 AM [facility] RDW 14.0 11.0 - 15.0 % LAB HEMETOLOGY METHOD 01/15/2025 10:33 AM [facility] Platelets 225 130 - 400 K/mcL LAB HEMETOLOGY METHOD 01/15/2025 10:33 AM [facility] MPV 11.8(H) 7.0 - 11.0 FL LAB HEMETOLOGY METHOD 01/15/2025 10:33 AM [facility] NRBC 0.0 <1.0 % LAB HEMETOLOGY METHOD 01/15/2025 10:33 AM [facility] NRBC Absolute 0.00 <0.10 K/mcL LAB HEMETOLOGY METHOD 01/15/2025 10:33 AM [facility] Blood Venous blood specimen / Unknown Venipuncture / Unknown 01/15/2025 6:08 AM EST 01/15/2025 9:50 AM EST us Tyree Amador MD LAB BLOOD ORDERABLES Final Resu lt [facility] [address] [place] [address], [place] [phone] documented in this encounter Visit Diagnoses Diagnosis Chronic kidney disease, unspecified Type 2 diabetes mellitus with hyperglycemia (CMS/HCC V24, CMS/HCC V28) documented in this encounter Additional Health Concerns Assessment Noted Time PHQ-9 Depression Total Score: 0 10/30/20 24 10:57 PM EST documented as of this encounter Care Teams Fretted Instruments Inspector Relationship Specialty Start Date End Date Anil Bettencourt MD [address] [place] [id number] PCP - General 08/02/01 documented as of this encounter
--- OUTSIDE RECORDS SUMMARY | 2025-04-16 05:39 | XMS_ITS | Encounter Summary ---
Author Organization [facility] Address [address] [place] [address] Care Team Providers Care Cancellation Clerk Name Role Phone Anil Bettencourt MD Primary Care Provider [phone] Encounter Details Date Type Department Care Team ([facility] Contact Info) Description 11/11/2024 Lab Requisition [facility] - Main Lab [address] [place] [address] Horace Solomon MD [address] [place] [phone] Encounter for other general examination Social History [...] your loved ones. For example, child care teacher or elderly care for an older [...] K/mcL LAB HEMETOLOGY METHOD 11/11/2024 1:40 PM [facility] RBC 3.20(L) 3.80 - 4.80 M/mcL LAB HEMETOLOGY METHOD 11/11/2024 1:40 PM [facility] Hemoglobin 9.7(L) 11.5 - 16.0 g/dL LAB HEMETOLOGY METHOD 11/11/2024 1:40 PM [facility] Hematocrit 30.3(L) 35.0 - 47.0 % LAB HEMETOLOGY METHOD 11/11/2024 1:40 PM [facility] MCV 93.5 79.0 - 98.0 FL LAB HEMETOLOGY METHOD 11/11/2024 1:40 PM [facility] MCH 29.9 27.0 - 32.0 pcg LAB HEMETOLOGY METHOD 11/11/2024 1:40 PM [facility] MCHC 32.0 32.0 - 37.0 g/dL LAB HEMETOLOGY METHOD 11/11/2024 1:40 PM [facility] RDW 13.3 11.0 - 15.0 % LAB HEMETOLOGY METHOD 11/11/2024 1:40 PM [facility] Platelets 313 130 - 400 K/mcL LAB HEMETOLOGY METHOD 11/11/2024 1:40 PM [facility] MPV 10.5 7.0 - 11.0 FL LAB HEMETOLOGY METHOD 11/11/2024 1:40 PM [facility] NRBC 0.0 <1.0 % LAB HEMETOLOGY METHOD 11/11/2024 1:40 PM [facility] NRBC Absolute 0.00 <0.10 K/mcL LAB HEMETOLOGY METHOD 11/11/2024 1:40 PM [facility] Neutrophils Relative 75.5 % LAB HEMETOLOGY METHOD 11/11/2024 1:40 PM [facility] Lymphocytes Relative 10.7 % LAB HEMETOLOGY METHOD 11/11/2024 1:40 PM [facility] Monocytes Relative 9.9 % LAB HEMETOLOGY METHOD 11/11/2024 1:40 PM [facility] Eosinophils Relative 1.5 % LAB HEMETOLOGY METHOD 11/11/2024 1:40 PM [facility] Basophils Relative 1.1 % LAB HEMETOLOGY METHOD 11/11/2024 1:40 PM [facility] Immature Granulocytes Relative 1.3 % LAB HEMETOLOGY METHOD 11/11/2024 1:40 PM [facility] Neutrophils Absolute 5.64 1.50 - 7.00 K/mcL LAB HEMETOLOGY METHOD 11/11/2024 1:40 PM [facility] Lymphocytes Absolute 0.80(L) 1.00 - 5.00 K/mcL LAB HEMETOLOGY METHOD 11/11/2024 1:40 PM [facility] Monocytes Absolute 0.74 0.20 - 1.00 K/mcL LAB HEMETOLOGY METHOD 11/11/2024 1:40 PM EST [facility] Eosinophils Absolute 0.11 0.00 - 0.50 K/mcL LAB HEMETOLOGY METHOD 11/11/2024 1:40 PM EST [facility] Basophils Absolute 0.08 0.00 - 0.20 K/mcL LAB HEMETOLOGY METHOD 11/11/2024 1:40 PM EST [facility] Immature Granulocytes Absolute 0.10(H) 0.00 - 0.03 K/[facility] LAB HEMETOLOGY METHOD 11/11/2024 1:40 PM EST [facility] Blood Venous blood specimen / Unknown Venipuncture / Unknown 11/11/2024 6:47 AM EST 11/11/2024 10:56 AM EST Horace Solomon MD LAB BLOOD ORDERABLES Final Res ult [facility] [address] [place] [address], [place] [phone] * (ABNORMAL) Hemoglobin A1c (11/11/2024 6:47 AM EST) Hemoglobin A1C 6.7(H) <6.5 % LAB CHEMISTRY METHOD 11/12/2024 8:18 AM EST [facility] Mean Bld Glu Estim. 146 mg/dL LAB CHEMISTRY METHOD 11/12/2024 8:18 AM EST [facility] Blood Venous blood specimen / Unknown Venipuncture / Unknown 11/11/2024 6:47 AM EST 11/11/2024 10:56 AM EST Horace Solomon MD LAB BLOOD ORDERABLES Final Res ult [facility] [address] [place] [address], [place] [phone] * (ABNORMAL) Magnesium (11/11/2024 6:47 AM EST) Magnesium 1.7(L) 1.9 - 2.6 mg/dL LAB CHEMISTRY METHOD 11/11/2024 12:37 PM [facility] Blood Venous blood specimen / Unknown Venipuncture / Unknown 11/11/2024 6:47 AM EST 11/11/2024 10:56 AM EST us Horace Solomon MD LAB BLOOD ORDERABLES Final Res ult [facility] [address] [place] [address], [place] [phone] * (ABNORMAL) Comprehensive metabolic panel (11/11/2024 6:47 AM EST) Pathologist [facility] Sodium 141 133 - 145 mmol/L LAB CHEMISTRY METHOD 11/11/2024 12:37 PM [facility] Potassium 4.2 3.5 - 5.5 mmol/L LAB CHEMISTRY METHOD 11/11/2024 12:37 PM [facility] Chloride 107 96 - 110 mmol/L LAB CHEMISTRY METHOD 11/11/2024 12:37 PM [facility] CO2 23 21 - 32 mmol/L LAB CHEMISTRY METHOD 11/11/2024 12:37 PM [facility] Anion Gap 11 3 - 11 LAB CHEMISTRY METHOD 11/11/2024 12:37 PM [facility] Glucose 147(H) 70 - 100 mg/dL LAB CHEMISTRY METHOD 11/11/2024 12:37 PM [facility] BUN 63(H) 5 - 25 mg/dL LAB CHEMISTRY METHOD 11/11/2024 12:37 PM [facility] Creatinine 3.11(H) 0.50 - 1.10 mg/dL LAB CHEMISTRY METHOD 11/11/2024 12:37 PM [facility] eGFR 15(L) >=60 mL/min/1. 73m2 LAB CHEMISTRY METHOD 11/11/2024 12:37 PM [facility] Comment:Calculation based on the??Chronic Kidney Disease Epidemiology Collaboration (CKD-EPI) equation refit??without adjustment for race. BUN/Creatinine Ratio 20.3 LAB CHEMISTRY METHOD 11/11/2024 12:37 PM [facility] Calcium 8.6 8.5 - 10.5 mg/dL LAB CHEMISTRY METHOD 11/11/2024 12:37 PM [facility] AST (SGOT) 11 10 - 42 unit/L LAB CHEMISTRY METHOD 11/11/2024 12:37 PM [facility] ALT (SGPT) 6(L) 10 - 60 unit/L LAB CHEMISTRY METHOD 11/11/2024 12:37 PM [facility] Alkaline Phosphatase 134(H) 42 - 121 unit/L LAB CHEMISTRY METHOD 11/11/2024 12:37 PM [facility] Total Protein 6.7 6.0 - 8.0 g/dL LAB CHEMISTRY METHOD 11/11/2024 12:37 PM [facility] Albumin 3.1(L) 3.2 - 5.0 g/dL LAB CHEMISTRY METHOD 11/11/2024 12:37 PM [facility] Total Bilirubin 1.0 0.0 - 1.4 mg/dL LAB CHEMISTRY METHOD 11/11/2024 12:37 PM [facility] Blood Venous blood specimen / Unknown Venipuncture / Unknown 11/11/2024 6:47 AM EST 11/11/2024 10:56 AM EST us Horace Solomon MD LAB BLOOD ORDERABLES Final Res ult [facility] [address] [place] [address], [place] [phone] documented in this encounter Visit Diagnoses Diagnosis Encounter for other general examination documented in this encounter Additional Health Concerns Infection Onset Date Last Indicated Resolved Time Respiratory Rule-Out 11/26/2024 11/26/2024 024 6:03 PM EST Gastrointestinal Rule-Out 11/30/2024 11/30/2024 7:06 PM EST Assessment Noted Time PHQ-9 Depression Total Score: 0 10/30/20 24 10:57 PM EST documented as of this encounter Care Teams Cancellation Clerk Relationship Specialty Start Date End Date Anil Bettencourt MD [address] [place] [id number] PCP - General 08/02/01 documented as of this encounter
--- OUTSIDE RECORDS SUMMARY | 2025-04-16 05:39 | XMS_ITS | Encounter Summary ---
Author Organization [facility] Address [address] [place] [address] Care Team Providers Care Licensed Psychologist Name Role Phone Anil Bettencourt MD Primary Care Provider [phone] Encounter Details Date Type Department Care Team (Latest Contact Info) Description 01/17/2025 Lab Requisition [facility] - Main Lab [address] [place] [address] Tyree Amador MD [address] [place] [phone] Type 2 diabetes mellitus with hyperglycemia [...] EST Type 2 diabetes mellitus with hyperglycemia ([facility]/HCC) Chronic kidney disease, unspecified BASIC METABOLIC PANEL Routine 01/18/2025 5:08 AM EST Type 2 diabetes mellitus with hyperglycemia ([facility]/HCC) Chronic kidney disease, unspecified documented in this encounter Results * (ABNORMAL) Complete blood count (01/18/2025 6:08 AM EST) WBC 9.8 4.8 - 10.8 K/mcL LAB HEMETOLOGY METHOD 01/18/2025 9:41 AM [facility] RBC 2.70(L) 3.80 - 4.80 M/mcL LAB HEMETOLOGY METHOD 01/18/2025 9:41 AM [facility] Hemoglobin 8.2(L) 11.5 - 16.0 g/dL LAB HEMETOLOGY METHOD 01/18/2025 9:41 AM [facility] Hematocrit 26.2(L) 35.0 - 47.0 % LAB HEMETOLOGY METHOD 01/18/2025 9:41 AM [facility] MCV 96.0 79.0 - 98.0 FL LAB HEMETOLOGY METHOD 01/18/2025 9:41 AM [facility] MCH 30.0 27.0 - 32.0 pcg LAB HEMETOLOGY METHOD 01/18/2025 9:41 AM [facility] MCHC 31.3(L) 32.0 - 37.0 g/dL LAB HEMETOLOGY METHOD 01/18/2025 9:41 AM [facility] RDW 14.3 11.0 - 15.0 % LAB HEMETOLOGY METHOD 01/18/2025 9:41 AM [facility] Platelets 207 130 - 400 K/mcL LAB HEMETOLOGY METHOD 01/18/2025 9:41 AM EST [facility] MPV 11.1(H) 7.0 - 11.0 FL LAB HEMETOLOGY METHOD 01/18/2025 9:41 AM EST [facility] NRBC 0.0 <1.0 % LAB HEMETOLOGY METHOD 01/18/2025 9:41 AM EST [facility] NRBC Absolute 0.00 <0.10 K/mcL LAB HEMETOLOGY METHOD 01/18/2025 9:41 AM [facility] Blood Venous blood specimen / Unknown 01/18/2025 6:08 AM EST 01/18/2025 9:21 AM EST us Tyree Amador MD LAB BLOOD ORDERABLES Final Resu lt [facility] [address] [place] [address], [place] [phone] * (ABNORMAL) Basic metabolic panel (01/18/2025 5:08 AM EST) Sodium 140 133 - 145 mmol/L LAB CHEMISTRY METHOD 01/18/2025 9:50 AM [facility] Potassium 3.6 3.5 - 5.5 mmol/L LAB CHEMISTRY METHOD 01/18/2025 9:50 AM [facility] Chloride 106 96 - 110 mmol/L LAB CHEMISTRY METHOD 01/18/2025 9:50 AM [facility] CO2 24 21 - 32 mmol/L LAB CHEMISTRY METHOD 01/18/2025 9:50 AM [facility] Anion Gap 10 3 - 11 LAB CHEMISTRY METHOD 01/18/2025 9:50 AM [facility] Glucose 122(H) 70 - 100 mg/dL LAB CHEMISTRY METHOD 01/18/2025 9:50 AM EST [facility] BUN 43(H) 5 - 25 mg/dL LAB CHEMISTRY METHOD 01/18/2025 9:50 AM [facility] Creatinine 2.82(H) 0.50 - 1.10 mg/dL LAB CHEMISTRY METHOD 01/18/2025 9:50 AM [facility] eGFR 17(L) >=60 mL/min/1. 73m2 LAB CHEMISTRY METHOD 01/18/2025 9:50 AM [facility] Comment:Calculation based on the??Chronic Kidney Disease Epidemiology Collaboration (CKD-EPI) equation refit??without adjustment for race. BUN/Creatinine Ratio 15.2 LAB CHEMISTRY METHOD 01/18/2025 9:50 AM [facility] Calcium 8.3(L) 8.5 - 10.5 mg/dL LAB CHEMISTRY METHOD 01/18/2025 9:50 AM [facility] Blood Venous blood specimen / Unknown 01/18/2025 5:08 AM EST 01/18/2025 9:20 AM EST us Tyree Amador MD LAB BLOOD ORDERABLES Final Resu lt [facility] [address] [place] [address], documented in this encounter Visit Diagnoses Diagnosis Type 2 diabetes mellitus with hyperglycemia (CMS/HCC V24, CMS/HCC V28) Chronic kidney disease, unspecified documented in this encounter Additional Health Concerns Assessment Noted Time PHQ-9 Depression Total Score: 0 10/30/20 24 10:57 PM EST documented as of this encounter Care Teams Licensed Psychologist Relationship Specialty Start Date End Date Anil Bettencourt MD [address] [place] [address] PCP - General 08/02/01 documented as of this encounter
--- OUTSIDE RECORDS SUMMARY | 2025-04-16 05:39 | XMS_ITS | Encounter Summary ---
Author Organization [facility] Address [address] [place] [address] Care Team Providers Care Rack Pusher Name Role Phone Anil Bettencourt MD Primary Care Provider [phone] Encounter Details Date Type Department Care Team ([facility] Contact Info) Description 11/26/2024 Lab Requisition [facility] - Main Lab [address] [place] [address] Horace Solomon MD [address] [place] [phone] Encounter for other general examination Social History [...] your loved ones. For example, early childhood education worker or elderly care for an older [...] Detected LAB MICROBIOLOGY METHOD 11/26/2024 6:03 PM [facility] Influenza A PCR Not Detected Not Detected LAB MICROBIOLOGY METHOD 11/26/2024 6:03 PM [facility] Influenza B PCR Not Detected Not Detected LAB MICROBIOLOGY METHOD 11/26/2024 6:03 PM [facility] Coronavirus 229E Not Detected Not Detected LAB MICROBIOLOGY METHOD 11/26/2024 6:03 PM [facility] Coronavirus HKU1 Not Detected Not Detected LAB MICROBIOLOGY METHOD 11/26/2024 6:03 PM [facility] Coronavirus OC43 Not Detected Not Detected LAB MICROBIOLOGY METHOD 11/26/2024 6:03 PM [facility] Coronavirus NL63 Not Detected Not Detected LAB MICROBIOLOGY METHOD 11/26/2024 6:03 PM [facility] Parainfluenza Virus 1 Not Detected Not Detected LAB MICROBIOLOGY METHOD 11/26/2024 6:03 PM [facility] Parainfluenza Virus 2 Not Detected Not Detected LAB MICROBIOLOGY METHOD 11/26/2024 6:03 PM [facility] Parainfluenza Virus 3 Not Detected Not Detected LAB MICROBIOLOGY METHOD 11/26/2024 6:03 PM [facility] Parainfluenza Virus 4 Not Detected Not Detected LAB MICROBIOLOGY METHOD 11/26/2024 6:03 PM [facility] RSV PCR Not Detected Not Detected LAB MICROBIOLOGY METHOD 11/26/2024 6:03 PM [facility] Human Metapneumovirus A and B Not Detected Not Detected LAB MICROBIOLOGY METHOD 11/26/2024 6:03 PM EST [facility] Rhinovirus/Entero virus Not Detected Not Detected LAB MICROBIOLOGY METHOD 11/26/2024 6:03 PM EST [facility] Bordetella pertussis Not Detected Not Detected LAB MICROBIOLOGY METHOD 11/26/2024 6:03 PM EST [facility] Bordetella parapertussis Not Detected Not Detected LAB MICROBIOLOGY METHOD 11/26/2024 6:03 PM EST [facility] Mycoplasma pneumo by PCR Not Detected Not Detected LAB MICROBIOLOGY METHOD 11/26/2024 6:03 PM EST [facility] Chlamydia pneumoniae Not Detected Not Detected LAB MICROBIOLOGY METHOD 11/26/2024 6:03 PM [facility] SARS COV-2 Not Detected Not Detected LAB MICROBIOLOGY METHOD 11/26/2024 6:03 PM [facility] Swab 11/26/2024 12:3 0 PM EST 11/26/2024 1:41 PM EST [facility] - 11/26/2024 6:03 PM EST Testing was performed using the [employer] Respiratory Pathogen PCR Assay. All results must [...] MICROBIOLOGY - GENERAL ORD ERABLES Final Result [facility] [address] [place] [address], documented in this encounter Visit Diagnoses Diagnosis Encounter for other general examination documented in this encounter Additional Health Concerns Infection Onset Date Last Indicated Resolved Time Respiratory Rule-Out 11/26/2024 11/26/2024 024 6:03 PM EST Gastrointestinal Rule-Out 11/30/2024 11/30/2024 7:06 PM EST Assessment Noted Time PHQ-9 Depression Total Score: 0 10/30/20 10:57 PM EST documented as of this encounter Care Teams Rack Pusher Relationship Specialty Start Date End Date Anil Bettencourt MD [address] [place] [address] PCP - General 08/02/01 documented as of this encounter
--- OUTSIDE RECORDS SUMMARY | 2025-04-16 05:39 | XMS_ITS | Clinical Summary ---
Author Organization [facility] Address [address] [facility] [address] [place], [place] [address] Phone Care Team Providers Care Concrete Foreman Name Role Phone Anil Bettencourt MD Primary Care Provider [phone] Allergies Active Allergy Reactions Criticality Noted Date [...] time each day. 90 each 1 5 06/03/20 25 Active metoprolol succinate (TOPROL-XL) 50 mg 24 hr tablet Take 1 tablet (50 mg total) by mouth 1 (one) time each day. Do not crush or chew. 90 each 1 5 06/03/20 25 Active Additional Information Patient not taking.Reported on 2024 hydrALAZINE (APRESOLINE) 50 mg tablet Take 1 tablet (50 mg total) by mouth 3 (three) times a day. 270 tablet 5 Active cloNIDine (CATAPRES) 0.1 mg tablet Take 1 tablet (0.1 mg total) by mouth 2 (two) times a day. 180 each 3 5 01/01/20 26 Active Active Problems Problem Noted Date Diagnosed Date CKD (chronic kidney disease) stage 4, GFR 15-29 ml/min (CMS/HCC V24, CMS/HCC V28) 2024 Atrial fibrillation (CMS/[facility] V24, CMS/[facility] V28) 0 03/26/2022 Assessment & [...] lead Obstructive sleep apnea 01/29/2022 Overview (08/31/2024): [facility] diagnostic polysomnogram 01/13/2022. Weight 166; BMI 28.AHI [...] Orders: ECG 12 lead Ascending aorta dilatation ([facility] V24) 016 Overview (08/31/2024): 3.7 cm by echo 07/14. CT 1 yr 09/14 echo normal aorta. Mild diastolic dysfunction. Normal EF Stasis eczema 08/26/2015 Nuclear sclerosis 03/22/2015 Overview (08/31/2024): Dr Carpio report 06/14/06 Controlled type 2 diabetes m ellitus with renal manifestation ([facility] V24, CMS/[facility] V28) 03/15/2014 Overview (08/31/2024): A1C 7.7, Microalbumin [...] than 70 mg/dL. Microalbuminuria 01/12/2006 Diabetic polyneuropathy (CMS/HCC V24, CMS/HCC V2 8) 01/12/2006 Assessment & Plan (10/23/2024 [...] Type Department Care Team Description 01/25/2025 Telephone [facility] [address] [place] [address] Albert Webber NP 01/20/2025 Lab Requisition [facility] [address] [place] [address] Tyree Amador MD Chronic kidney disease, unspecified; Type 2 diabetes mellitus with hyperglycemia ([facility] V24, [facility] V28) 01/17/2025 Lab Requisition [facility] [address] [place] [address] Tyree Amador MD Type 2 diabetes mellitus with hyperglycemia ([facility] V24, [facility] V28); Chronic kidney disease, unspecified 01/17/2025 Telephone [facility] [place] [address] [place] [address] Anil Bettencourt MD [facility] Follow-up from Last 3 Months Immunizations Name Administration [...] Abnormal mammogram 12/16/2001 KAI (acute kidney injury) ([facility] V24) Anemia Astigmatism 04/2005 C. [...] age-related cataract type, unspecified laterality 05/07/2004 Sepsis ([facility] V24, [facility] V28) Sleep apnea Symptomatic menopausal or fe male climacteric states 06/19/2002 Type II or unspecified type diabetes mellitus with renal manifestations, uncontrolled(250.42) ([facility] V24, [facility] V28) 03/15/2014 Type II or unspecified type diabetes mellitus with ketoacidosis, uncontrolled(250.12) ([facility] V24, [facility] V28) 06/04/2005 mellitus without mention [...] for your loved ones. For example, child caregiver or elderly care for an older adult? [...] with hyperglycemia (CMS/HCC) Chronic kidney disease, unspecified HEMOGLOBIN A1C Routine 11/11/2024 6:47 AM EST Encounter for other general examination FALLS RISK ASSESSMENT Routine 05/25/2024 LIPID PANEL [...] 9:41 AM EST [facility] RBC 2.70(L) 3.80 - 4.80 M/mcL LAB HEMETOLOGY METHOD 01/18/2025 9:41 AM EST [facility] Hemoglobin 8.2(L) 11.5 - 16.0 g/dL LAB HEMETOLOGY METHOD 01/18/2025 9:41 AM EST [facility] Hematocrit 26.2(L) 35.0 - 47.0 % LAB HEMETOLOGY METHOD 01/18/2025 9:41 AM [facility] MCV 96.0 79.0 - 98.0 FL LAB HEMETOLOGY METHOD 01/18/2025 9:41 AM EST [facility] MCH 30.0 27.0 - 32.0 pcg LAB HEMETOLOGY METHOD 01/18/2025 9:41 AM [facility] MCHC 31.3(L) 32.0 - 37.0 g/dL LAB HEMETOLOGY METHOD 01/18/2025 9:41 AM [facility] RDW 14.3 11.0 - 15.0 % LAB HEMETOLOGY METHOD 01/18/2025 9:41 AM [facility] Platelets 207 130 - 400 K/mcL LAB HEMETOLOGY METHOD 01/18/2025 9:41 AM [facility] MPV 11.1(H) 7.0 - 11.0 FL LAB HEMETOLOGY METHOD 01/18/2025 9:41 AM [facility] NRBC 0.0 <1.0 % LAB HEMETOLOGY METHOD 01/18/2025 9:41 AM EST [facility] NRBC Absolute 0.00 <0.10 K/mcL LAB HEMETOLOGY METHOD 01/18/2025 9:41 AM [facility] Blood Venous blood specimen / Unknown 01/18/2025 6:08 AM EST 01/18/2025 9:21 AM EST us Tyree Amador MD LAB BLOOD ORDERABLES Final Resu lt [facility] [address] [place] [address], [place] [phone] * (ABNORMAL) Basic metabolic panel (01/18/2025 5:08 AM EST) Sodium 140 133 - 145 mmol/L LAB CHEMISTRY METHOD 01/18/2025 9:50 AM [facility] Potassium 3.6 3.5 - 5.5 mmol/L LAB CHEMISTRY METHOD 01/18/2025 9:50 AM [facility] Chloride 106 96 - 110 mmol/L LAB CHEMISTRY METHOD 01/18/2025 9:50 AM [facility] CO2 24 21 - 32 mmol/L LAB CHEMISTRY METHOD 01/18/2025 9:50 AM [facility] Anion Gap 10 3 - 11 LAB CHEMISTRY METHOD 01/18/2025 9:50 AM [facility] Glucose 122(H) 70 - 100 mg/dL LAB CHEMISTRY METHOD 01/18/2025 9:50 AM [facility] BUN 43(H) 5 - 25 mg/dL LAB CHEMISTRY METHOD 01/18/2025 9:50 AM [facility] Creatinine 2.82(H) 0.50 - 1.10 mg/dL LAB CHEMISTRY METHOD 01/18/2025 9:50 AM [facility] eGFR 17(L) >=60 mL/min/1. 73m2 LAB CHEMISTRY METHOD 01/18/2025 9:50 AM [facility] Comment:Calculation based on the??Chronic Kidney Disease Epidemiology Collaboration (CKD-EPI) equation refit??without adjustment for race. BUN/Creatinine Ratio 15.2 LAB CHEMISTRY METHOD 01/18/2025 9:50 AM [facility] Calcium 8.3(L) 8.5 - 10.5 mg/dL LAB CHEMISTRY METHOD 01/18/2025 9:50 AM [facility] Blood Venous blood specimen / Unknown 01/18/2025 5:08 AM EST 01/18/2025 9:20 AM EST Tyree Amador MD LAB BLOOD ORDERABLES Final Resu lt [facility] [address] [place] [address], [place] [phone] * (ABNORMAL) Hemoglobin A1c (11/11/2024 6:47 AM EST) [facility] Hemoglobin A1C 6.7(H) <6.5 % LAB CHEMISTRY METHOD 11/12/2024 8:18 AM EST [facility] Mean Bld Glu Estim. 146 mg/dL LAB CHEMISTRY METHOD 11/12/2024 8:18 AM EST [facility] Blood Venous blood specimen / Unknown Venipuncture / Unknown 11/11/2024 6:47 AM EST 11/11/2024 10:56 AM EST Horace Solomon MD LAB BLOOD ORDERABLES Final Res ult [facility] [address] [place] [address], * Falls Risk Assessment (05/25/2024) [facility] Falls Risk Assessment abstracted Historical Provider HEALTH MAINTENANCE Final Result * (ABNORMAL) Lipid panel (05/19/2024) [facility] LDL/HDL Ratio 7(A) 0 - 4 Triglycerides 468(A) 0 - 150 mg/dL Cholesterol 201(A) 0 - 200 mg/dL HDL 27(A) >=40 mg/dL LDL Cholesterol 81 0 - 100 mg/dL Blood Venous blood specimen / Unknown Historical Provider LAB BLOOD ORDERABLES Yady l Result * Urine Albumin Creatinine Ratio (05/11/2024) Pathologist [facility] Urine Albumin Creatinine Ratio abstracted Historical Provider MD HEALTH MAINTENANCE Final Result * Diabetes Eye Exam (01/18/2024) [facility] Diabetes: Annual Retina Eye Exam abstracted [facility] Provider MD HEALTH MAINTENANCE Final Result * Diabetes Foot Exam (11/18/2023) [facility] Diabetes: Annual Foot Exam abstracted [facility] Provider HEALTH MAINTENANCE Final Result * [...] (World Health Organization Fracture Risk Assessment) [facility] Department of Internal Medicine recommends using [...] on the World Health Organization criteria, Radha schroederbe classified as having osteopenia. This patient has a 20% risk of majorosteoporotic fracture and a 4.5% risk of hip fracture over the next 10years. (World Health Organization Fracture Risk Assessment) [facility] Department of Internal Medicine recommendsusing National [...] fracture risk by FRAX. Jaida Barron MD IMG DXA PROCEDURES Final Res ult * Hepatitis C Screening (10/12/2013) [facility] Hepatitis C Screening abstracted Historical Provider HEALTH MAINTENANCE Final Result from Last 3 Months or Most Recently Relevant to Health Maintenance Insurance MEDICARE [facility] Advance Directives Documents on File Type Date Recorded Patient Chain Tender Expl anation Health Care Decision (hx) 03/24/2024 [...] (hx) 06/07/2021 AD NAGEL DIRECTIVE Care Teams Concrete Foreman Relationship Specialty Start Date End Date Anil Bettencourt MD [address] [place] [address] PCP - General 08/02/01
--- OUTSIDE RECORDS SUMMARY | 2025-04-16 05:39 | XMS_ITS | Encounter Summary ---
Author Organization [facility] Address [address] [place] [address] Care Team Providers Care Honey Blender Name Role Phone Anil Bettencourt MD Primary Care Provider [phone] Encounter Details Date Type Department Care Team ([facility] Contact Info) Description 11/24/2024 Lab Requisition [facility] - Main Lab [address] [place] [address] Horace Solomon MD [address] [place] [address] Encounter for other general examination Social History [...] K/mcL LAB HEMETOLOGY METHOD 11/24/2024 11:00 AM [facility] RBC 2.60(L) 3.80 - 4.80 M/mcL LAB HEMETOLOGY METHOD 11/24/2024 11:00 AM [facility] Hemoglobin 7.9(L) 11.5 - 16.0 g/dL LAB HEMETOLOGY METHOD 11/24/2024 11:00 AM [facility] Hematocrit 24.4(L) 35.0 - 47.0 % LAB HEMETOLOGY METHOD 11/24/2024 11:00 AM [facility] MCV 92.8 79.0 - 98.0 FL LAB HEMETOLOGY METHOD 11/24/2024 11:00 AM [facility] MCH 30.0 27.0 - 32.0 pcg LAB HEMETOLOGY METHOD 11/24/2024 11:00 AM [facility] MCHC 32.4 32.0 - 37.0 g/dL LAB HEMETOLOGY METHOD 11/24/2024 11:00 AM [facility] RDW 13.5 11.0 - 15.0 % LAB HEMETOLOGY METHOD 11/24/2024 11:00 AM [facility] Platelets 315 130 - 400 K/mcL LAB HEMETOLOGY METHOD 11/24/2024 11:00 AM [facility] MPV 10.5 7.0 - 11.0 FL LAB HEMETOLOGY METHOD 11/24/2024 11:00 AM EST [facility] NRBC 0.0 <1.0 % LAB HEMETOLOGY METHOD 11/24/2024 11:00 AM EST [facility] NRBC Absolute 0.00 <0.10 K/mcL LAB HEMETOLOGY METHOD 11/24/2024 11:00 AM EST [facility] Blood Venous blood specimen / Unknown Venipuncture / Unknown 11/24/2024 5:55 AM EST 11/24/2024 8:56 AM EST us Horace Solomon MD LAB BLOOD ORDERABLES Final Res ult [facility] [address] [place] [address], [place] [phone] * (ABNORMAL) Basic metabolic panel (11/24/2024 5:55 AM EST) Sodium 139 133 - 145 mmol/L LAB CHEMISTRY METHOD 11/24/2024 10:25 AM [facility] Potassium 3.5 3.5 - 5.5 mmol/L LAB CHEMISTRY METHOD 11/24/2024 10:25 AM [facility] Chloride 106 96 - 110 mmol/L LAB CHEMISTRY METHOD 11/24/2024 10:25 AM [facility] CO2 24 21 - 32 mmol/L LAB CHEMISTRY METHOD 11/24/2024 10:25 AM [facility] Anion Gap 9 3 - 11 LAB CHEMISTRY METHOD 11/24/2024 10:25 AM [facility] Glucose 100 70 - 100 mg/dL LAB CHEMISTRY METHOD 11/24/2024 10:25 AM [facility] BUN 66(H) 5 - 25 mg/dL LAB CHEMISTRY METHOD 11/24/2024 10:25 AM [facility] Creatinine 3.30(H) 0.50 - 1.10 mg/dL LAB CHEMISTRY METHOD 11/24/2024 10:25 AM [facility] eGFR 14(L) >=60 mL/min/1. 73m2 LAB CHEMISTRY METHOD 11/24/2024 10:25 AM EST [facility] Comment:Calculation based on the??Chronic Kidney Disease Epidemiology Collaboration (CKD-EPI) equation refit??without adjustment for race. BUN/Creatinine Ratio 20.0 LAB CHEMISTRY METHOD 11/24/2024 10:25 AM EST [facility] Calcium 8.6 8.5 - 10.5 mg/dL LAB CHEMISTRY METHOD 11/24/2024 10:25 AM [facility] Blood Venous blood specimen / Unknown Venipuncture / Unknown 11/24/2024 5:55 AM EST 11/24/2024 8:56 AM EST us Horace Solomon MD LAB BLOOD ORDERABLES Final Res ult [facility] [address] [place] [address], documented in this encounter Visit Diagnoses Diagnosis Encounter for other general examination documented in this encounter Additional Health Concerns Infection Onset Date Last Indicated Resolved Time Respiratory Rule-Out 11/26/2024 11/26/2024 024 6:03 PM EST Gastrointestinal Rule-Out 11/30/2024 11/30/2024 7:06 PM EST Assessment Noted Time PHQ-9 Depression Total Score: 0 10/30/20 24 10:57 PM EST documented as of this encounter Care Teams Honey Blender Relationship Specialty Start Date End Date Anil Bettencourt MD [address] [place] [address] PCP - General 08/02/01 documented as of this encounter
--- OUTSIDE RECORDS SUMMARY | 2025-04-16 05:39 | XMS_ITS | Encounter Summary ---
Author Organization [facility] Address [address] [place] [address] Care Team Providers Care Body Coverer Name Role Phone Anil Bettencourt MD Primary Care Provider [phone] Encounter Details Date Type Department Care Team ([facility] Contact Info) Description 11/15/2024 Lab Requisition [facility] - Main Lab [address] [place] [address] Horace Solomon MD [address] [place] [address] Encounter for other general examination Social History [...] LAB CHEMISTRY METHOD 11/15/2024 11:02 AM EST [facility] Blood Venous blood specimen / Unknown Venipuncture / Unknown 11/15/2024 5:15 AM EST 11/15/2024 9:57 AM EST us Horace Solomon MD LAB BLOOD ORDERABLES Final Res ult [facility] [address] [place] [address], documented in this encounter Visit Diagnoses Diagnosis Encounter for other general examination documented in this encounter Additional Health Concerns Infection Onset Date Last Indicated Resolved Time Respiratory Rule-Out 11/26/2024 11/26/2024 024 6:03 PM EST Gastrointestinal Rule-Out 11/30/2024 11/30/2024 7:06 PM EST Assessment Noted Time PHQ-9 Depression Total Score: 0 10/30/20 24 10:57 PM EST documented as of this encounter Care Teams Body Coverer Relationship Specialty Start Date End Date Anil Bettencourt MD [address] [place] [address] PCP - General 08/02/01 documented as of this encounter
--- OUTSIDE RECORDS SUMMARY | 2025-04-16 05:39 | XMS_ITS | Encounter Summary ---
Author Organization [facility] Address [address] [place] [address] Care Team Providers Care Conveyor Tender Name Role Phone Anil Bettencourt MD Primary Care Provider [phone] Encounter Details Date Type Department Care Team (Latest Contact Info) Description 01/10/2025 Lab Requisition [facility] - Main Lab [address] [place] [address] Tyree Amador MD [address] [place] [phone] Type 2 diabetes mellitus with hyperglycemia [...] EST Type 2 diabetes mellitus with hyperglycemia ([facility]) Chronic kidney disease, unspecified BASIC METABOLIC PANEL Routine 01/11/2025 5:48 AM EST Type 2 diabetes mellitus with hyperglycemia ([facility]) Chronic kidney disease, unspecified documented in this encounter Results * (ABNORMAL) Basic metabolic panel (01/11/2025 5:48 AM EST) Sodium 140 133 - 145 mmol/L LAB CHEMISTRY METHOD 01/11/2025 11:04 AM [facility] Potassium 4.3 3.5 - 5.5 mmol/L LAB CHEMISTRY METHOD 01/11/2025 11:04 AM [facility] Comment:Hemolysis present Chloride 110 96 - 110 mmol/L LAB CHEMISTRY METHOD 01/11/2025 11:04 AM [facility] CO2 24 21 - 32 mmol/L LAB CHEMISTRY METHOD 01/11/2025 11:04 AM [facility] Anion Gap 6 3 - 11 LAB CHEMISTRY METHOD 01/11/2025 11:04 AM [facility] Glucose 78 70 - 100 mg/dL LAB CHEMISTRY METHOD 01/11/2025 11:04 AM [facility] BUN 44(H) 5 - 25 mg/dL LAB CHEMISTRY METHOD 01/11/2025 11:04 AM [facility] Creatinine 2.75(H) 0.50 - 1.10 mg/dL LAB CHEMISTRY METHOD 01/11/2025 11:04 AM [facility] eGFR 17(L) >=60 mL/min/1. 73m2 LAB CHEMISTRY METHOD 01/11/2025 11:04 AM [facility] Comment:Calculation based on the??Chronic Kidney Disease Epidemiology Collaboration (CKD-EPI) equation refit??without adjustment for race. BUN/Creatinine Ratio 16.0 LAB CHEMISTRY METHOD 01/11/2025 11:04 AM EST [facility] Calcium 8.7 8.5 - 10.5 mg/dL LAB CHEMISTRY METHOD 01/11/2025 11:04 AM [facility] Blood Venous blood specimen / Unknown Venipuncture / Unknown 01/11/2025 5:48 AM EST 01/11/2025 10:20 AM EST us Tyree Amador MD LAB BLOOD ORDERABLES Final Resu lt [facility] [address] [place] [address], [place] [phone] * (ABNORMAL) Complete blood count (01/11/2025 5:48 AM EST) WBC 5.8 4.8 - 10.8 K/mcL LAB HEMETOLOGY METHOD 01/11/2025 10:45 AM [facility] RBC 3.00(L) 3.80 - 4.80 M/mcL LAB HEMETOLOGY METHOD 01/11/2025 10:45 AM [facility] Hemoglobin 8.8(L) 11.5 - 16.0 g/dL LAB HEMETOLOGY METHOD 01/11/2025 10:45 AM [facility] Hematocrit 27.9(L) 35.0 - 47.0 % LAB HEMETOLOGY METHOD 01/11/2025 10:45 AM [facility] MCV 94.6 79.0 - 98.0 FL LAB HEMETOLOGY METHOD 01/11/2025 10:45 AM [facility] MCH 29.8 27.0 - 32.0 pcg LAB HEMETOLOGY METHOD 01/11/2025 10:45 AM [facility] MCHC 31.5(L) 32.0 - 37.0 g/dL LAB HEMETOLOGY METHOD 01/11/2025 10:45 AM EST [facility] RDW 14.1 11.0 - 15.0 % LAB HEMETOLOGY METHOD 01/11/2025 10:45 AM EST [facility] Platelets 246 130 - 400 K/mcL LAB HEMETOLOGY METHOD 01/11/2025 10:45 AM EST [facility] MPV 11.3(H) 7.0 - 11.0 FL LAB HEMETOLOGY METHOD 01/11/2025 10:45 AM EST [facility] NRBC 0.0 <1.0 % LAB HEMETOLOGY METHOD 01/11/2025 10:45 AM EST [facility] NRBC Absolute 0.00 <0.10 K/mcL LAB HEMETOLOGY METHOD 01/11/2025 10:45 AM EST [facility] Blood Venous blood specimen / Unknown Venipuncture / Unknown 01/11/2025 5:48 AM EST 01/11/2025 10:20 AM EST us Tyree Amador MD LAB BLOOD ORDERABLES Final Resu lt [facility] [address] [place] [address], documented in this encounter Visit Diagnoses Diagnosis Type 2 diabetes mellitus with hyperglycemia (CMS/HCC V24, CMS/HCC V28) Chronic kidney disease, unspecified documented in this encounter Additional Health Concerns Assessment Noted Time PHQ-9 Depression Total Score: 0 10/30/20 24 10:57 PM EST documented as of this encounter Care Teams Conveyor Tender Relationship Specialty Start Date End Date Anil Bettencourt MD [address] [place] [address] PCP - General 08/02/01 documented as of this encounter
--- OUTSIDE RECORDS SUMMARY | 2025-04-16 05:39 | XMS_ITS | Clinical Summary ---
Author Organization [facility] Address [address] [place] [address] Phone Care Team Providers Care Group Leader Wafer Polishing Name Role Phone Jacques Cline MD Primary Care Provider [phone] Allergies Active Allergy Reactions Criticality Noted Date [...] 0 Refills, Maintenance, 11/20/21 15:05:00 EST, Gel, [facility], Partial fill upon patient request if [...] APPLY TO AFFECTED AREA TWICE DAILY Active [place]rapevine-3 Fatty Acids (FISH OIL PO) Take by [...] 02/02/2022 Obstructive sleep apnea 01/29/2022 Overview (04/29/2022): [facility] diagnostic polysomnogram 01/13/2022. Weight 166; BMI [...] 11/18/2021 Coronary arteriosclerosis 08/05/2016 Overview (10/28/2021): hosp 8/16 chest pain. . mibi abnormal. PTCA RCA [...] Encounters Date Type Department Care Team Description 04/12/2025 Treatment [facility] [address] [address] Carlos Siddiqui MD End stage renal disease; Dependence on renal dialysis 04/05/2025 Treatment [facility] [address] [address] Carlos Siddiqui MD End stage renal disease; Dependence on renal dialysis 03/27/2025 Treatment [facility] [address] [address] Carlos Siddiqui MD End stage renal disease; Dependence on renal dialysis 03/22/2025 Orders Only [facility] [address] [place] [address] Carlos Siddiqui MD 03/22/2025 Treatment [facility] [address] [place] [address] Carlos Siddiqui MD End stage renal disease; Dependence on renal dialysis 03/06/2025 Treatment [facility] [address] [address] Carlos Siddiqui MD End stage renal disease; Dependence on renal dialysis from Last 3 Months Immunizations Immunization Administration Dates Next Due H1N1 Inj 12/02/2009 H1N1 Inj Preservative Free 12/02/2009 Influenza Split High Dose Pr eservative Free IM 11/04/2021,08/26/2018,08/24/2017,09/01,08/26/2015 Influenza, Quadrivalent, Wit h Preservative 09/01/2021,09/05/2019,08/29/2018,08/31 Influenza, Unspecified 10/21/2020,2018,09/05/2019,08/26,08/24/2017,09/01/2016,09/29/2015 ,08/26/2015,10/16/2014,08/29/2014,09/30,08/29/2013,10/06/2012,,09/01/2010,08/29/2009,09/11/2008,,11/01/2006,09/07/2005 Moderna SARS-COV-2 01/06/2022, 2,02/04/2021,01/07 Pneumococcal Conjugate 13-Valent [...] Procedure Name Priority Date/Time Associated Diagnosis Comments TEST CANCELED (HC) Routine 04/12/2025 3: 00 AM EDT HEPATITIS B SURFACE ANTIGEN W/REFL CONFIRM Routine 04/05/2025 3:00 AM EDT PROTEIN, TOTAL, SERUM Routine 04/05/2025 3:00 AM EDT TRANSFERRIN SATURATION Routine 3:00 AM EDT MAGNESIUM Routine 04/05/2025 3:00 AM EDT ELECTROLYTE PANEL Routine 04/05/2025 3:0 0 AM EDT LIH (HC) Routine 04/05/2025 3:00 AM EDT LACTATE DEHYDROGENASE Routine 04/05/2025 3:00 AM EDT GLUCOSE, RANDOM Routine 04/05/2025 3:00 AM EDT CREATININE, SERUM Routine 04/05/2025 3:0 0 AM EDT BILIRUBIN, TOTAL Routine 04/05/2025 3:00 AM EDT BUN/CREATININE RATIO Routine 04/05/2025 3:00 AM EDT ALT Routine 04/05/2025 3:00 AM EDT ALKALINE PHOSPHATASE Routine 04/05/2025 3:00 AM EDT AST Routine 04/05/2025 3:00 AM EDT CALCIUM PHOSPHORUS PRODUCT, ADJUSTED (HC) Routine 04/05/2025 3:00 AM EDT FERRITIN Routine 04/05/2025 3:00 AM EDT CBC AND DIFFERENTIAL Routine 04/05/2025 3:00 AM EDT KT/V NATURAL LOG, URR (HC) Routine 04/05/2025 3:00 AM EDT HEMOGLOBIN Routine 03/24/2025 3:00 AM EDT COLLECTION DATE (HC) Routine 03/24/2025 3:00 AM EDT HEMOGLOBIN Routine 03/22/2025 3:00 AM EDT ALUMINUM [...] EDT from Last 3 Months Results * Test Canceled (04/12/2025 3:00 AM EDT) Test Cancelled See Comment [facility] Comment: Possible interferences present. ??Pre-dialysis chemistry specimen is consistent with a contaminated, diluted, or post-dialysis sample. 04/12/2025 3:00 AM EDT Carlos Siddiqui MD LAB HISTORICA [id number] RESULTS Final Result Performing Organization Address City/[facility]/ZIP Co de Phone Number APS [facility] [address] [place] [address] * LIH (04/05/2025 3:00 AM EDT) Only the most recent of2 resultswithin the time period is included. Lipemia Normal Normal [facility] Icterus Normal Normal [facility] Hemolysis Normal Normal [facility] 04/05/2025 3:00 AM EDT 04/06/2025 5:19 PM EDT Carlos Siddiqui MD LAB HISTORICA [id number] RESULTS Final Result Performing Organization Address [facility] de Phone Number [facility]PS [facility] [address] [place] [address] * (ABNORMAL) Kt/V Natural Log, URR (04/05/2025 3:00 AM EDT) Only the most recent of2 resultswithin the time period is included. Pathologist [facility] Treatment Time 196 min [facility] Pre-Weight, lb 60.3 kg [facility] Post-Weight, lb 59.3 kg [facility] Ultrafiltration Rate 5 <=13 mL/kg/hr [facility] Comment: Recommend achieving Ultrafiltration Rate (UFR) <=10 mL/kg/hr References: Heide BURKETT et al. Kidney Int. 2010; 79(2):250-257 BUN 31(H) 7 - 25 mg/dL [facility] BUN Post Dialysis 6(L) 7 - 25 mg/dL [facility] UREA REDUCTION RATIO (%) 81 >=65 % [facility] Kt/V Natural Log 1.84 >=1.2 [facility] 04/05/2025 3:00 AM EDT 04/06/2025 5:16 PM EDT Carlos Siddiqui MD LAB HISTORICA [id number] RESULTS Final Result Performing Organization Address [facility] Co de Phone Number [facility] [address] [place] [address] * (ABNORMAL) Calcium Phosphorus Product, Adjusted (04/05/2025 3:00 AM EDT) Only the most recent of2 resultswithin the time period is included. Albumin 3.0(L) 3.6 - 5.4 g/dL [facility] Calcium 8.0(L) 8.6 - 10.3 mg/dL [facility] Phosphorus, Serum 2.9 2.5 - 5.0 mg/dL [facility] Ca*PO4 23.2 <55.0 mg2/dL2 [facility] Calcium, Adjusted Total 8.8 8.6 - 10.3 mg/dL [facility] CA*PO4 CORRCTD 25.5 <55.0 mg2/dL2 [facility] 04/05/2025 3:00 AM EDT 04/06/2025 5:19 PM EDT us Carlos Siddiqui MD LAB HISTORICA [id number] RESULTS Final Result Performing Organization Address [facility] de Phone Number [facility] [address] [place] [address] * Hepatitis B Surface Ag w/Reflex Confirmation (04/05/2025 3:00 AM EDT) Only the most recent of2 resultswithin the time period is included. Pathologist [facility] Hep B Surface Antigen Negative Negative [facility] 04/05/2025 3:00 AM EDT 04/06/2025 5:19 PM EDT Carlos Siddiqui MD LAB BLOOD ORDERABLES Final Result Performing Organization Address [facility] de Phone Number [facility] [address] [place] [address] * BUN/CREATININE RATIO (04/05/2025 3:00 AM EDT) BUN/Creatinine Ratio 11.2 <=23.0 [facility] 04/05/2025 3:00 AM EDT 04/06/2025 5:19 PM EDT Carlos Siddiqui MD LAB HISTORICA [id number] RESULTS Final Result Performing Organization Address [facility] de Phone Number [facility] [address] [place] [address] * (ABNORMAL) TSAT (04/05/2025 3:00 AM EDT) Only the most recent of2 resultswithin the time period is included. Iron 35(L) 50 - 170 ug/dL [facility] Transferrin 77(L) 250 - 380 mg/dL [facility] TIBC 108(L) 211 - 406 ug/dL [facility] Iron Saturation (TSat) 32 22 - 52 % [facility] 04/05/2025 3:00 AM EDT 04/06/2025 5:19 PM EDT Carlos Siddiqui MD LAB BLOOD ORDERABLES Final Result Performing Organization Address [facility] de Phone Number [facility] [address] [place] [address] * (ABNORMAL) CBC and Differential (04/05/2025 3:00 AM EDT) Only the most recent of2 resultswithin the time period is included. DIFFERENTIAL MANUAL, 2 Not Indicated [facility] White Blood Cells 6.4 4.0 - 10.0 K/uL [facility] RBC 2.23(L) 3.93 - 5.22 M/uL [facility] Hgb 6.6(L) 11.2 - 15.7 g/dL [facility] Hemoglobin x 3 19.8(L) 33.6 - 47.1 g/dL [facility] Hematocrit 21.7(L) 34.1 - 44.9 % [facility] MCV 97.3(H) 79.4 - 94.8 fL [facility] MCH 29.6 25.6 - 32.2 pg [facility] MCHC 30.4(L) 32.2 - 35.5 g/dL [facility] RDW 18.6(H) 11.7 - 14.4 % [facility] Platelets 280 182 - 369 K/uL [facility] Neutrophils Relative 79.8(H) 34.0 - 71.1 % [facility] Lymphocytes Relative 10.4(L) 19.3 - 51.7 % [facility] Monocytes 7.9 4.7 - 12.5 % [facility] Eosinophils Relative 0.8 0.7 - 5.8 % [facility] Basophils Relative 0.6 0.1 - 1.2 % [facility] Immature Granulocytes 0.5 0.0 - 1.0 % [facility] 04/05/2025 3:00 AM EDT 04/06/2025 5:20 PM EDT us Carlos Siddiqui MD LAB BLOOD ORDERABLES Final Result Performing Organization Address [facility] de Phone Number [facility] [address] [place] [address] * ALT (04/05/2025 3:00 AM EDT) Only the most recent of2 resultswithin the time period is included. ALT (SGPT) 14 10 - 49 U/L [facility] 04/05/2025 3:00 AM EDT 04/06/2025 5:19 PM EDT us Carlos Siddiqui MD LAB BLOOD ORDERABLES Final Result Performing Organization Address [facility] de Phone Number [facility] [address] [place] [address] * AST (04/05/2025 3:00 AM EDT) Only the most recent of2 resultswithin the time period is included. AST (SGOT) 19 <34 U/L [facility] 04/05/2025 3:00 AM EDT 04/06/2025 5:19 PM EDT us Carlos Siddiqui MD LAB BLOOD ORDERABLES Final Result Performing Organization Address [facility] Co de Phone Number [facility] [address] [place] [address] * (ABNORMAL) Protein, total (04/05/2025 3:00 AM EDT) Only the most recent of2 resultswithin the time period is included. Total Protein 5.9(L) 6.4 - 8.9 g/dL [facility] 04/05/2025 3:00 AM EDT 04/06/2025 5:19 PM EDT Carlos Siddiqui MD LAB BLOOD ORDERABLES Final Result Performing Organization Address [facility] Co de Phone Number [facility] [address] [place] [address] * (ABNORMAL) Alkaline phosphatase (04/05/2025 3:00 AM EDT) Only the most recent of2 resultswithin the time period is included. Alkaline Phosphatase 140(H) 46 - 116 U/L [facility] 04/05/2025 3:00 AM EDT 04/06/2025 5:19 PM EDT Carlos Siddiqui MD LAB BLOOD ORDERABLES Final Result Performing Organization Address [facility] Co de Phone Number [facility] [address] [place] [address] * Magnesium (04/05/2025 3:00 AM EDT) Only the most recent of2 resultswithin the time period is included. Magnesium 2.2 1.9 - 2.7 mg/dL [facility] 04/05/2025 3:00 AM EDT 04/06/2025 5:19 PM EDT Carlos Siddiqui MD LAB BLOOD ORDERABLES Final Result Performing Organization Address [facility] Co de Phone Number [facility] [address] [place] [address] * (ABNORMAL) Lactate dehydrogenase (04/05/2025 3:00 AM EDT) Only the most recent of2 resultswithin the time period is included. LDH 262(H) 120 - 246 U/L [facility] 04/05/2025 3:00 AM EDT 04/06/2025 5:19 PM EDT Carlos Siddiqui MD LAB BLOOD ORDERABLES Final Result Performing Organization Address [facility] Co de Phone Number [facility] [address] [place] [address] * (ABNORMAL) Glucose, random (04/05/2025 3:00 AM EDT) Only the most recent of2 resultswithin the time period is included. Glucose 109(H) 70 - 99 mg/dL [facility] Comment: ADA guidelines outline the following fasting glucose ranges: Normal: ? <100 Prediabetes: 100-125 Diabetes: ? >125 04/05/2025 3:00 AM EDT 04/06/2025 5:19 PM EDT Carlos Siddiqui MD LAB BLOOD ORDERABLES Final Result Performing Organization Address [facility] de Phone Number [facility] [address] [place] [address] * (ABNORMAL) Ferritin (04/05/2025 3:00 AM EDT) Only the most recent of2 resultswithin the time period is included. Ferritin 1,537(H) 10 - 291 ng/mL [facility] 04/05/2025 3:00 AM EDT 04/06/2025 5:19 PM EDT Carlos Siddiqui MD LAB BLOOD ORDERABLES Final Result Performing Organization Address [facility] Co de Phone Number [facility] [address] [place] [address] * (ABNORMAL) Creatinine, serum (04/05/2025 3:00 AM EDT) Only the most recent of2 resultswithin the time period is included. Creatinine 2.76(H) 0.55 - 1.02 mg/dL [facility] 04/05/2025 3:00 AM EDT 04/06/2025 5:19 PM EDT us Carlos Siddiqui MD LAB BLOOD ORDERABLES Final Result Performing Organization Address [facility] Co de Phone Number [facility] [address] [place] [address] * Bilirubin, total (04/05/2025 3:00 AM EDT) Only the most recent of2 resultswithin the time period is included. Total Bilirubin 0.5 0.3 - 1.2 mg/dL [facility] 04/05/2025 3:00 AM EDT 04/06/2025 5:19 PM EDT Carlos Siddiqui MD LAB BLOOD ORDERABLES Final Result Performing Organization Address [facility] de Phone Number [facility] [address] [place] [address] * Electrolyte panel (04/05/2025 3:00 AM EDT) Only the most recent of2 resultswithin the time period is included. Sodium 136 136 - 145 mEq/L [facility] Potassium 4.0 3.4 - 5.0 mEq/L [facility] Chloride 98 98 - 107 mEq/L [facility] Bicarbonate (CO2) 28 21 - 31 mEq/L [facility] Anion Gap 10 3 - 14 mEq/L [facility] 04/05/2025 3:00 AM EDT 04/06/2025 5:19 PM EDT us Carlos Siddiqui MD LAB BLOOD ORDERABLES Final Result Performing Organization Address [facility] Co de Phone Number [facility] [address] [place] [address] * Collection Date (03/24/2025 3:00 AM EDT) Collection Date See Comment [facility] Comment: Patient sample received may exceed specimen stability, based on the collection date electronically provided. ??When reviewing patient results, verify collection information and consider specimen stability before acting on any critical or panic results. 03/24/2025 3:00 AM EDT Carlos Siddiqui MD LAB HISTORICA [id number] RESULTS Final Result Performing Organization Address [facility] Co de Phone Number [facility] [address] [place] [address] * (ABNORMAL) Hemoglobin (03/24/2025 3:00 AM EDT) Only the most recent of2 resultswithin the time period is included. Hgb 7.5(L) 11.2 - 15.7 g/dL [facility] Hemoglobin x 3 22.5(L) 33.6 - 47.1 g/dL [facility] 03/24/2025 3:00 AM EDT 03/27/2025 12:43 PM EDT Carlos Siddiqui MD LAB BLOOD ORDERABLES Final Result Performing Organization Address [facility] de Phone Number [facility] [address] [place] [address] * Confirmation Test HCV (03/06/2025 3:00 AM EDT) Hep C Ab Confirmation Not needed [facility] 03/06/2025 3:00 AM EDT 03/07/2025 3:03 PM EDT us Carlos Siddiqui MD LAB BLOOD ORDERABLES Final Result Performing Organization Address [facility] de Phone Number [facility] [address] [place] [address] * HEPATITIS C ABS W/REFLEX RNA DETECTR (03/06/2025 3:00 AM EDT) [facility] Hep C Virus Ab Non-Reacti ve Non-Reacti ve [facility] 03/06/2025 3:00 AM EDT 03/07/2025 3:32 PM EDT us Carlos Siddiqui MD LAB HISTORICA [id number] RESULTS Final Result Performing Organization Address [facility] de Phone Number [facility] [address] [place] [address] * Hepatitis B Core Antibody, Total (03/06/2025 3:00 AM EDT) [facility] HBc Total Ab, S Negative Negative [facility] 03/06/2025 3:00 AM EDT 03/07/2025 3:32 PM EDT Carlos Siddiqui MD LAB BLOOD ORDERABLES Final Result Performing Organization Address [facility] de Phone Number [facility] [address] [place] [address] * (ABNORMAL) Aluminum level (03/06/2025 3:00 AM EDT) [facility] Aluminum 21(H) 1 - 20 ug/L [facility] Comment:Verified by repeat a nalysis 03/06/2025 3:00 AM EDT 03/07/2025 3:18 PM EDT Carlos Siddiqui MD LAB BLOOD ORDERABLES Final Result Performing Organization Address [facility] de Phone Number [facility] [address] [place] [address] * Vitamin D 25 Hydroxy (03/06/2025 3:00 AM EDT) [facility] Vitamin D, 25-Hydroxy 33 30 - 100 ng/mL [facility] Comment: Status ? Adult ?? Pediatric Deficient: ? <20 ? <15 Insufficient: ??20-29 ?? 15-19 Sufficient: ?30-100 ??20-100 03/06/2025 3:00 AM EDT 03/07/2025 3:32 PM EDT us Carlos Siddiqui MD LAB BLOOD ORDERABLES Final Result Performing Organization Address [facility] de Phone Number [facility] [address] [place] [address] * (ABNORMAL) Hepatitis B Surface Antibody (03/06/2025 3:00 AM EDT) Hep B Surface Antibody <4(A) mIU/mL [facility] Comment: Interpretation: <10: No Immunity >=10: Probable Immunity 03/06/2025 3:00 AM EDT 03/07/2025 3:32 PM EDT us Carlos Siddiqui MD LAB BLOOD ORDERABLES Final Result Performing Organization Address [facility] de Phone Number [facility] [address] [place] [address] * (ABNORMAL) Uric Acid (03/06/2025 3:00 AM EDT) Uric Acid 10.2(H) 2.3 - 6.6 mg/dL [facility] 03/06/2025 3:00 AM EDT 03/07/2025 3:32 PM EDT us Carlos Siddiqui MD LAB BLOOD ORDERABLES Final Result Performing Organization Address [facility] de Phone Number [facility] [address] [place] [address] * PTH, Intact (03/06/2025 3:00 AM EDT) PTH, Intact 203 160 - 721 pg/mL [facility] Comment: Suggested (KDIGO) ESRD maintenance range is two to nine times the upper normal limit (80.1 pg/mL) for the laboratory. 03/06/2025 3:00 AM EDT 03/07/2025 3:32 PM EDT Carlos Siddiqui MD LAB BLOOD ORDERABLES Final Result Performing Organization Address [facility] de Phone Number [facility] [address] [place] [address] * (ABNORMAL) Hemoglobin A1c (03/06/2025 3:00 AM EDT) Hemoglobin A1C 6.0(H) <5.7 % [facility] Comment: Methodology: Enzymatic HbA1c (NGSP %) ?Suggested Diagnosis >6.4% ? Diabetic 5.7-6.4% ?Pre-Diabetic <5.7% ? Non-Diabetic Diabetic Glucose Control Evaluation: Therapeutic action suggested at >8.0% ADA recommends a glycemic goal of <7.0% 03/06/2025 3:00 AM EDT 03/07/2025 3:03 PM EDT us Carlos Siddiqui MD LAB BLOOD ORDERABLES Final Result Performing Organization Address [facility] de Phone Number [facility] [address] [place] [address] * (ABNORMAL) Lipid panel (03/06/2025 3:00 AM [...] ORDERABLES Final Result [facility] [address] [place] [address] from Last 3 Months Insurance Medicare [facility] Medicare [facility] [place] [phone] Medicare Care Teams Group Leader Wafer Polishing Relationship Specialty Start Date End Date Jacques Cline MD [address] [address] PCP - General Nephrology 04/29/22
--- OUTSIDE RECORDS SUMMARY | 2025-04-16 05:39 | XMS_ITS | Encounter Summary ---
Author Organization [facility] Address [address] [place] [address] Care Team Providers Care Inside Sales Agent Name Role Phone Anil Bettencourt MD Primary Care Provider [phone] Encounter Details Date Type Department Care Team ([facility] Contact Info) Description 11/21/2024 Lab Requisition [facility] - Main Lab [address] [place] [address] Horace Solomon MD [address] [place] [id number] Encounter for other general examination Social History [...] your loved ones. For example, child care worker or elderly care for an older [...] mmol/L LAB CHEMISTRY METHOD 11/21/2024 10:44 AM [facility] Potassium 3.7 3.5 - 5.5 mmol/L LAB CHEMISTRY METHOD 11/21/2024 10:44 AM [facility] Chloride 103 96 - 110 mmol/L LAB CHEMISTRY METHOD 11/21/2024 10:44 AM [facility] CO2 27 21 - 32 mmol/L LAB CHEMISTRY METHOD 11/21/2024 10:44 AM [facility] Anion Gap 9 3 - 11 LAB CHEMISTRY METHOD 11/21/2024 10:44 AM [facility] Glucose 137(H) 70 - 100 mg/dL LAB CHEMISTRY METHOD 11/21/2024 10:44 AM [facility] BUN 67(H) 5 - 25 mg/dL LAB CHEMISTRY METHOD 11/21/2024 10:44 AM [facility] Creatinine 3.59(H) 0.50 - 1.10 mg/dL LAB CHEMISTRY METHOD 11/21/2024 10:44 AM [facility] eGFR 12(L) >=60 mL/min/1. 73m2 LAB CHEMISTRY METHOD 11/21/2024 10:44 AM [facility] Comment:Calculation based on the??Chronic Kidney Disease Epidemiology Collaboration (CKD-EPI) equation refit??without adjustment for race. BUN/Creatinine Ratio 18.7 LAB CHEMISTRY METHOD 11/21/2024 10:44 AM [facility] Calcium 8.3(L) 8.5 - 10.5 mg/dL LAB CHEMISTRY METHOD 11/21/2024 10:44 AM [facility] Blood Venous blood specimen / Unknown Venipuncture / Unknown 11/21/2024 5:25 AM EST 11/21/2024 9:37 AM EST us Horace Solomon MD LAB BLOOD ORDERABLES Final Res ult [facility] [address] [place] [address], documented in this encounter Visit Diagnoses Diagnosis Encounter for other general examination documented in this encounter Additional Health Concerns Infection Onset Date Last Indicated Resolved Time Respiratory Rule-Out 11/26/2024 11/26/2024 024 6:03 PM EST Gastrointestinal Rule-Out 11/30/2024 11/30/2024 7:06 PM EST Assessment Noted Time PHQ-9 Depression Total Score: 0 10/30/20 24 10:57 PM EST documented as of this encounter Care Teams Inside Sales Agent Relationship Specialty Start Date End Date Anil Bettencourt MD [address] [place] [address] PCP - General 08/02/01 documented as of this encounter
--- OUTSIDE RECORDS SUMMARY | 2025-04-16 05:39 | XMS_ITS | Data Portability ---
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 Plan of Treatment Reminders Order Date Submit Date Provider Last Modified By Organization Details Last Modified Time Details Appointments None recorded. Lab wet mount, vaginal 2021 022 elva In-Office Order, Internal Use Only DO Not Attach Compendium DO Not Attach Compendium, Do Not Delete/merge, [id number] 11:55:35 pap test, thinprep, cervical 2021 022 [email or web address] [facility], Cytopathology Service, [address] [place], [address], 2 07:27:53 pap test, thinprep, cervical 2019 020 [email or web address] [facility], Cytopathology Service, [address] [place], [address], 0 07:39:38 Referral None recorded. Procedures None recorded. Surgeries None recorded. Imaging MAMMO, screening , digital, bilateral 2021 022 [facility] ([facility]), [address] [place], [address], 2 19:14:49 bone density 2021 022 [facility] ([facility]), [address] [place], [address], 2 19:24:13 MAMMO, screening , digital, bilateral 2019 020 [facility] ([facility]), [address] [facility] [place], [address], 2 07:56:40 bone density 2019 020 [facility] ([facility]), [address] [place], [address], 2 07:32:33 Medication Orders terconazo le 0.4 % vaginal cream 2021 022 [facility]/Ph[facility]acy #[id number], [address] [place], [address], 2 10:22:20 Gynazole- 1 2 % vaginal cream 2021 022 [id number], [address] [place], [address], 2 10:22:20 Patient TargetsNo targets recorded. Patient Instructions Encounter Date Encounter Id Patient Instructions Last Modified By Organization Details Last Modified Time 04/29/2020 [id number] atrophic vaginit is: care instructions Not available 04/29/2020 13:32:33 She is here for annual exam, she has a different toe infected now, due to her sugars, and her neuropathy bothers her. She is seeing a research computing specialist. Her sugars are in better control now. note from 2018: She is here for annual exam. She is seeing a vascular surgeon for head of biology management of her chronic right toe infection, since November. Her diabetes has been up and down her last A1C was 6.5. No pmb since 2013 when emb was negative, weakly proliferative endometrium. She had a CT scan of the foot in November. 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 the chronic wetness of the vulva is quite improved, that is great. She appears to be doing well. She is advised to get 1500 mg of calcium daily into her diet and supplements combined. We discussed the benefits of adequate vitamin D supplementation to at least 400 units daily, daily aerobic exercise of 30 minutes, and stress reduction. Monthly self breast exam was taught, and stressed, and is advised to call if she discovers any new mass in the breast. Seat belt use for herself and passengers advised. The significant health benefits of becoming and remainig fit, with an optimal BMI, were also discussed. We discussed the potential reduction in chronic discomfort, the diminished risks of hypertension, diabetes, and heart disease with the proper weight management, and improved mobility as she ages. Strategies to reach and maintain her target weight wer discussed in detail, all questions answered. Not available 04/29/2020 13:32:55 04/29/2022 [id number] vaginal yeast infection: care instructions Not available 04/29/2022 10:22:17 atrophic vaginit is: care instructions Not available 04/29/2022 10:22:17 learning about healthy weight Not available 04/29/2022 10:22:17 She is here for annual exam, her diabetes is under better control, and she has no active foot infection this time. She was in the hospital for a month in January, for C Dif, now has vaginal pruritus. She is sad, her , and her [id number] also his was from [place], he was not vaccinated and had uncontrolled diabetes and HTN. note from 2019: She is here for annual exam, she has a different toe infected now, due to her sugars, and her neuropathy bothers her. She is seeing a research computing specialist. Her sugars are in better control now. _ She appears to be doing well. She is advised to get 1500 mg of calcium daily into her diet and supplements combined. There is a health benefit with adequate vitamin D supplementation to at least 400 units daily, daily aerobic exercise of 30 minutes, and stress reduction. Monthly self breast exam was taught, and stressed, and is advised to call if she discovers any new mass in the breast. She has a symptomatic monilia vaginal infection, after weeks of antibiotics to treat C Dif. She prefers the one day vaginal cream if possible but the aguilar is not registering on the form here, so will call in Terazol 7 and Gynazole 1 and she can pick up operator whichever she prefers once she know the cost. Not available 04/29/2022 11:20:11 10/05/2022 [id number] chronic kidney disease: care instructions Not available 10/05/2022 11:30:32 learning about chronic kidney disease Not available 10/05/2022 11:30:32 This visit is a phone telehealth visit. The patient consented to the visit by phone. The patient was at home at the time of the call and the provider and patient were the only people on the line. I was at [address] [place] [address], [facility] [address], [place], at the time of the call. She has had worsening osteopenia, her T score of her left hip dropped from -1.5 to -1.9 since 2018. She is also concerned because Dr. Colvin may be starting her on dialysis soon and she has a number of good questions about that. We discussed her diagnosis of osteopenia. We reviewed the results of her bone density test, with reference to the computer images. We discussed the way that standard deviation is used for diagnosis, and what this means to her as she ages. Adequate calcium intake of 1500 mg daily, weight bearing exercise three times a week, and vitamin D supplementation of at least 400 units daily is suggested. She is advised to avoid tobacco, coffee, and steroids if possible. Benefits of an active lifestyle discussed as well. All questions answered. We discussed the different forms of medical treatment for osteoporosis, in case she might need this in the future. She will repeat the bone density testing in 2 years to assess her progress.She is aware that if her bone density diminished significantly in the intervening 2 years she may need medical therapy at that time. She is encouraged to try this preventive therapy first. Return for routine annual exam as scheduled. We also discussed her chronic renal disease, and issues, all questions answered to the best of my ability. I advised her to set up a telehealth with Dr. Colvin as she does have very good and reasonable questions that he can likely answer for her. She will do that. The patient was agreeable to this plan. She is aware of the limitations caused by the covid restrictions, and this phone call, but was appreciative of the efforts to complete the evaluation. Face to face discussion for 30 minutes. Not available 10/05/2022 11:33:22 Reason for Referral None Reported. Results Created Date Observation Date Name Description Value Unit Range Abnormal Flag Note LastModifiedBy Organization Detail LastModifiedTime 04/29/20 20 04/29/2020 pap test, thinp rep, cervi finn [id number] ThinP rep Pap, Image d: NEGAT [place] FOR SQUAM OUS INTRA EPITH ELIAL LESIO N AND MALIG MELINA . Atrop hy. Mercer Yadira Montalvo CT( CP) (Case elect jeremy laz thaddeus d 05 01 2020) ADEQU ACY: Satis facto ry Endoc ervic al/tr ansfo rmati on zone compo nent prese nt. SOURC E: ThinP rep Pap HPV IF ASCUS , Cervi finn, Image d CLINI FINN INFOR MATIO N: HPV If Diagn osis of ASCUS . LMP 4-30- 18 = NEG. Z12.4 Not Available [facility] [address] [place], [address], 05/01/2020 16:02:27 04/29/20 22 04/29/2022 PAP1C ASE [id number] ThinP rep Pap, Image d: NEGAT [place] FOR SQUAM OUS INTRA EPITH ELIAL LESIO N AND MALIG MELINA . Atrop hy with infla mmati on is prese nt. Abund ant parti ally obscu ring acute infla mmato ry cells are prese nt. Rene garcia CT( CP) (Case elect jeremy laz thaddeus d 05 08 2022) ADEQU ACY: Satis facto ry . SOURC E: ThinP rep Pap HPV IF Ascus : Refle x 16 and 18, Cervi finn, Image d CLINI FINN INFOR MATIO N: HPV If Diagn osis of ASCUS . Z12.4 Not Available [facility] [address] [place], [address], 05/08/2022 14:35:35 04/30/20 22 04/30/2022 wet mount , vagin al Clue Cells negati ve Not Available In-Office Order Internal Use Only DO Not Attach Compendium DO Not Attach Compendium, Do Not Delete/merge, [id number] 04/29/2022 10:21:11 04/30/20 22 04/30/2022 wet mount , vagin al Trichomonas negati ve Not Available In-Office Order Internal Use Only DO Not Attach Compendium DO Not Attach Compendium, Do Not Delete/merge, [id number] 04/29/2022 10:21:11 04/30/20 22 04/30/2022 wet mount , vagin al Hyphae positi ve Not Available In-Office Order Internal Use Only DO Not Attach Compendium DO Not Attach Compendium, Do Not Delete/merge, [id number] 04/29/2022 10:21:11 04/30/20 22 04/30/2022 wet mount , vagin al atrophic epithelium positi ve Not Available In-Office Order Internal Use Only DO Not Attach Compendium DO Not Attach Compendium, Do Not Delete/merge, [id number] 04/29/2022 10:21:11 09/11/20 22 09/11/2022 MAMMO , scree mikel, digit al, bilat eral No observ ation record ed. Not Available 08/29 14:30:29 09/14/20 22 09/11/2022 bone densi ty No observ ation record ed. [email or web address] Not Available 2021 10:08:19 09/21/20 22 07/05/2018 bone densi ty No observ ation record ed. [email or web address] [facility] [address] [place], [address], 10/01/2022 10:06:10 09/20/20 23 09/20/2023 MAMMO , scree mikel, digit al, bilat eral No observ ation record ed. [email or web address] Not Available 2022 10:28:20 10/07/20 23 10/07/2023 US, breas t No observ ation record ed. [address], [address], 10/08/2023 10:59:01 10/07/20 23 10/07/2023 MAMMO , diagn ostic , digit al, unila teral No observ ation record ed. [address], [address], 10/08/2023 10:59:00 09/28/20 24 09/28/2024 MAMMO , scree mikel, digit al, bilat eral No observ ation record ed. [address], [address], 09/29/2024 08:07:06 Result Notes None recorded. Problems Name Problem SNOMED Code Status Onset Date Resolution Date Notes Provider Name and Address Organization Details Recorded Time Oligoovulatory dysfunctional uterine bleeding 862278527 Active Jaida Barron MD [address] [facility],[address], [place], [address], [place] [facility], 6 08:50:43 Senile osteopenia 78870483 Active Jaida Barron MD [address] [facility],[address], [place], [address], [place] - [facility], 6 08:50:43 Hypertensive disorder 30591872 Active 2019 DVAID Nuñez in [facility], 0 13:01:11 Chronic renal failure 24228255 Active 2021 DAVID Brenner [facility], 2 10:00:03 Swollen abdomen 30191230 Active Jaida Barron MD [address] [facility],[address], [place], [address], [place] [facility], 6 08:50:43 Problem Notes None recorded. Procedures Surgical History Date Name Laterality Status Provider Name and Address Organization Details Recorded Time 9 Most Recent Mammogram completed Vivian Henderson in [facility], 04/29/2022 07:42:28 8 partial amputation of right toe completed Abby Marcum [place] [facility], 10/05/2022 10:01:04 7 Other completed Vivian Mauricio [place] - [facility], 03/28/2018 10:03:41 6 Medicare Annual completed Sera Martin [place] [facility], 03/23/2016 08:26:34 5 Medicare Annual completed Sera Martin [place] - [facility], 03/21/2015 08:26:36 4 Other completed Sera Martin [place] - [facility], 03/21/2015 08:37:21 4 Endometrial Biopsy completed Jaida Barron MD [address] [place] [address],[address], [place], [address], [place] [facility], 04/12/2014 15:53:34 Imaging Results Imaging Date Name Status LastModified by Organiz ation Details LastModified Time 09/11/2022 MAMMO, screening, digital, bilateral completed Information not available 09/13/2022 14:30:29 09/11/2022 bone density completed Information not available 10/01/2022 10:08:19 07/05/2018 bone density completed [email or web address] [address], [address], 10/01/2022 10:06:10 09/20/2023 MAMMO, screening, digital, bilateral completed [email or web address] Information not available 09/21/2023 10:28:20 10/07/2023 US, breast completed [address], [address], 10/08/2023 10:59:01 10/07/2023 MAMMO, diagnostic, digital, unilateral completed [address], [address], 10/08/2023 10:59:00 09/28/2024 MAMMO, screening, digital, bilateral completed [address], [address], 09/29/2024 08:07:06 Procedure Notes None recorded. Medical Equipment None Reported. Allergies Allergen ID Allergen Name Allergen Category Reaction Reaction Severity Criticality Documentation Date Start Date Code Code System Note Provider Name and Address Organization Details Recorded Time adhesive tape environme nt,medica tion photosens itivity Not available Not available 03/28/2018 65711 UNK surgi finn tape. DAVID Nuñez in [facility], 8 09:55:28 7861 Actos medicatio n myalgias (muscle pain) Not available Not available 03/17/2013 37782 2 RxNorm DAVID Nuñez in [facility], 3 07:44:29 7901 Macrobid medicatio n rash Not available Not available 03/17/2013 08473 1 RxNorm high sugar DAVID Nuñez in [facility], 3 11:05:32 Medications Name Sig Start Date Stop Date Status Note LastModified by Organization Details LastModified Time amoxicillin 500 mg capsule TAKE 1 CAPSULE BY MOUTH THREE TIMES A DAY UNTIL FINISHED 04/29 completed Not Available Not Available Not Available fluconazole 100 mg tablet TAKE 1 TABLET BY MOUTH EVERY DAY. START 07/03/2104/29 completed Not Available Not Available Not Available silver sulfadiazin e 1 % topical cream 04/29 completed Not Available Not Available Not Available metformin 500 mg tablet active Not Available Not Available Not Available terconazole 0.4 % vaginal cream INSERT 1 APPLICATO RFUL VAGINALLY EVERY DAY FOR 7 DAYS active Not Available Not Available No t Available atorvastati n 80 mg tablet TAKE 1 TABLET BY MOUTH EVERY DAY 10/05 completed Not Available Not Available Not Available gabapentin 600 mg tablet TAKE 1 TABLET BY MOUTH TWICE A DAY active Not Available Not Available No t Available doxycycline hyclate 100 mg capsule 04/29 completed Not Available Not Available Not Available atorvastati n 20 mg tablet TAKE 1 TABLET BY MOUTH EVERY DAY active Not Available Not Available No t Available clindamycin HCl 300 mg capsule 03/28 completed Not Available Not Available Not Available ammonium lactate 12 % lotion APPYL TO LEGS/FEET 1 TO 2 TIMES DAILY active Not Available Not Available No t Available triamcinolo ne acetonide 0.5 % topical cream APPLY TO AFFECTED AREA TWICE DAILY active Not Available Not Available No t Available azithromyci n 250 mg tablet TAKE 1 TABLET BY MOUTH A SINGLE DOSE 10/05 completed Not Available Not Available Not Available ibuprofen 800 mg tablet TAKE 1 TABLET BY MOUTH EVERY 6 HOURS NEEDED FOR PAIN 04/29 completed Not Available Not Available Not Available Novolin N NPH U-100 Insulin isophane 100 unit/mL subcutaneou s susp active Not Available Not Available Not Available fluconazole 150 mg tablet TAKE 1 TABLET ONCE. REPEAT IN 72 HOURS IF STILL SYMPTOMAT IC 10/05 completed Not Available Not Available Not Available metoprolol succinate ER 50 mg tablet,exte nded release 24 hr 03/28 completed Not Available Not Available Not Available cimetidine 400 mg tablet TAKE 1 TABLET BY MOUTH TWICE A DAY active Not Available Not Available No t Available hydrocodone 5 mg-acetamin ophen 325 mg tablet 04/29 completed Not Available Not Available Not Available spironolact one 25 mg-hydrochl orothiazide 25 mg tablet 03/28 completed Not Available Not Available Not Available lisinopril 20 mg tablet active Not Available Not Available Not Available glipizide 10 mg tablet active Not Available Not Available Not Available alendronate 70 mg tablet TAKE 1 TABLET BY MOUTH ONCE A WEEK. 06/15 completed Not Available Not Available Not Available metoprolol succinate ER 100 mg tablet,exte nded release 24 hr TAKE 1 TABLET BY MOUTH EVERY DAY active Not Available Not Available No t Available prednisone 5 mg tablet active Not Available Not Available Not Available clobetasol 0.05 % topical cream active Not Available Not Available Not Available thiamine HCl (vitamin B1) 100 mg tablet TAKE 1 TABLET BY MOUTH EVERY DAY active Not Available Not Available No t Available amlodipine 2.5 mg tablet TAKE 1 TABLET EVERY DAY 03/28 completed Not Available Not Available Not Available clopidogrel 75 mg tablet TAKE 1 TABLET BY MOUTH EVERY DAY active Not Available Not Available No t Available Aspir-Low 81 mg tablet,deuce yed release 04/29 completed Not Available Not Available Not Available amlodipine 5 mg tablet TAKE 1 TABLET BY MOUTH EVERY DAY 04/29 completed Not Available Not Available Not Available allopurinol 100 mg tablet TAKE 2 TABLETS BY MOUTH EVERY DAY active Not Available Not Available No t Available sulfamethox azole 800 mg-trimetho prim 160 mg tablet 03/28 completed Not Available Not Available Not Available tramadol 50 mg tablet 04/29 completed Not Available Not Available Not Available triamterene 37.5 mg-hydrochl orothiazide 25 mg capsule active Not Available Not Available Not Available spironolact one 25 mg tablet TAKE 1 TABLET BY MOUTH EVERY 48 HOURS active Not Available Not Available No t Available vancomycin 125 mg capsule TAKE 1 CAPSULE BY MOUTH EVERY 6 HOURS 04/29 completed Not Available Not Available Not Available levothyroxi ne 100 mcg tablet 03/28 completed Not Available Not Available Not Available methenamine hippurate 1 gram tablet TAKE 1 TABLET BY MOUTH EVERY DAY active Not Available Not Available No t Available pravastatin 80 mg tablet TAKE 1 TABLET BY MOUTH EVERY DAY 04/29 completed Not Available Not Available Not Available prednisolon e acetate 1 % eye drops,suspe nsion 03/28 completed Not Available Not Available Not Available hydrocortis one valerate 0.2 % topical ointment active Not Available Not Available Not Available sodium bicarbonate 650 mg tablet TAKE 2 TABLETS BY MOUTH 3 TIMES A DAY active Not Available Not Available No t Available amlodipine 10 mg tablet TAKE 1 TABLET BY MOUTH EVERY DAY active Not Available Not Available No t Available gemfibrozil 600 mg tablet TAKE 1 TABLET BY MOUTH 2 TIMES DAILY. 04/29 completed Not Available Not Available Not Available cephalexin 500 mg capsule TAKE 1 CAPSULE BY MOUTH TWICE A DAY FOR 7 DAYS 10/05 completed Not Available Not Available Not Available pantoprazol e 40 mg tablet,deuce yed release 03/28 completed Not Available Not Available Not Available indomethaci n 25 mg capsule 04/29 completed Not Available Not Available Not Available lisinopril 30 mg tablet TAKE HALF A TABLET BY MOUTH TWICE A DAY 03/28 completed Not Available Not Available Not Available docusate sodium 100 mg capsule TAKE 1 CAPSULE BY MOUTH TWICE A DAY FOR 10 DAYS active Not Available Not Available No t Available gabapentin 300 mg capsule TAKE 1 CAPSULE BY MOUTH TWICE A DAY active Not Available Not Available No t Available omeprazole 20 mg capsule,del ayed release TAKE 1 CAPSULE BY MOUTH EVERY DAY active Not Available Not Available No t Available bumetanide 1 mg tablet TAKE 1 TABLET BY MOUTH EVERY 48 HOURS. active Not Available Not Available No t Available hydrocortis one 2.5 % topical cream APPLY TO AFFECTED AREA TWICE A DAY active Not Available Not Available No t Available hydralazine 50 mg tablet TAKE 1 TABLET BY MOUTH TWICE A DAY active Not Available Not Available No t Available hydrochloro thiazide 25 mg tablet TAKE 1 TABLET EVERY DAY 03/28 completed Not Available Not Available Not Available Baby Aspirin 81 mg chewable tablet Chew 1 tablet every day by oral route. 03/28 completed Not Available Not Available Not Available ibuprofen 600 mg tablet active Not Available Not Available Not Available cefuroxime axetil 500 mg tablet 03/28 completed Not Available Not Available Not Available levofloxaci n 750 mg tablet TAKE 1 TABLET BY MOUTH EVERY 24 HOURS FOR 3 DAYS 04/29 completed Not Available Not Available Not Available losartan 100 mg tablet 04/29 completed Not Available Not Available Not Available lisinopril 2.5 mg tablet TAKE 1 TABLET BY MOUTH EVERY DAY active Not Available Not Available No t Available doxycycline hyclate 100 mg tablet TAKE 1 TABLET BY MOUTH TWICE A DAY DIRECTED 04/29 completed Not Available Not Available Not Available calcitriol 0.25 mcg capsule TAKE 1 CAPSULE BY MOUTH EVERY OTHER DAY active Not Available Not Available No t Available glipizide 5 mg tablet active Not Available Not Available No t Available thiamine HCl (vitamin B1) 50 mg tablet TAKE 1 TABLET BY MOUTH EVERY DAY active Not Available Not Available No t Available levothyroxi ne 112 mcg tablet TAKE 1 TABLET BY MOUTH EVERY DAY active Not Available Not Available No t Available amoxicillin 875 mg-potassiu m clavulanate 125 mg tablet TAKE 1 TABLET BY MOUTH TWICE A DAY FOR 3 DAYS 04/29 completed Not Available Not Available Not Available amoxicillin 500 mg-potassiu m clavulanate 125 mg tablet TAKE 1 TABLET BY MOUTH TWICE A DAY FOR 5 DAYS 10/05 completed Not Available Not Available Not Available oxycodone 5 mg tablet TAKE 1 TABLET EVERY 6 HOURS FOR 3 DAYS NEEDED FOR SEVERE PAIN active Not Available Not Available No t Available olmesartan 20 mg tablet TAKE 1 TABLET BY MOUTH EVERY DAY 04/29 completed Not Available Not Available Not Available olmesartan 40 mg tablet TAKE 1 TABLET BY MOUTH EVERY DAY active Not Available Not Available No t Available Novolog FlexPen U-100 Insulin aspart 100 unit/mL (3 mL) subcutaneou s INJECT 6-45 UNITS 3 TIMES A DAY BEFORE MEALS active Not Available Not Available No t Available Restasis 0.05 % eye drops in a dropperette PLACE 1 DROP INTO BOTH EYES TWICE A DAY active Not Available Not Available No t Available Vigamox 0.5 % eye drops active Not Available Not Available Not Available calcium 04/29 completed Not Available Not Available Not Available Vitamin D3 active Not Available Not Av ailable Not Available Calcium 500 + D active Not Available Not Available Not Available alpha lipoic acid active Not Available Not Available Not Available BD Insulin Syringe Ultra-Fine 0.5 mL 30 gauge x 1/2 active Not Available Not Available Not Available BD Ultra-Fine Short Pen Needle 31 gauge x 5/16 INJECT 25 UNITS DIRECTED 2 TIMES DAILY. TEST TWICE DAILY DIRECTED active Not Available Not Available No t Available peg 3350-electr olytes 236 gram-22.74 gram-6.74 gram-5.86 gram solution active Not Available Not Available Not Available Lantus Solostar U-100 Insulin 100 unit/mL (3 mL) subcutaneou s pen active Not Available Not Available Not Available clopidogrel 300 mg tablet TAKE 1 TABLET BY MOUTH EVERY DAY ONE DOSE active Not Available Not Available No t Available ferrous fumarate 325 mg (106 mg iron) tablet Take by oral route. active Not Available Not Available No t Available OneTouch Delica Lancets 33 gauge USE TO TEST BLOOD GLUCOSE 5 TIMES PER DAY active Not Available Not Available No t Available Brilinta 90 mg tablet TAKE 1 TABLET BY MOUTH TWICE A DAY 04/29 completed Not Available Not Available Not Available OneTouch Verio test strips TO TEST BLOOD GLUCOSE 5X A DAY active Not Available Not Available No t Available Gynazole-1 2 % vaginal cream INSERT 1 APPLICATO RFUL EVERY DAY BY VAGINAL ROUTE FOR 1 DAY. active Not Available Not Available No t Available Vascepa 1 gram capsule TAKE 2 CAPS BY MOUTH 2 TIMES DAILY WITH FOOD. SWALLOW WHOLE. DON'T CHEW/OPEN / DISSOLVE/ CRUSH active Not Available Not Available No t Available Eliquis 5 mg tablet TAKE 1 TABLET BY MOUTH TWICE A DAY active Not Available Not Available No t Available Prolensa 0.07 % eye drops 03/28 completed Not Available Not Available Not Available Digest Probiotic (S.boulardi i) 250 mg capsule TAKE 1 CAPSULE BY MOUTH 2 TIMES A DAY FOR 14 DAYS *OTC NOT COVERED* active Not Available Not Available No t Available Humulin N NPH U-100 Insulin KwikPen 100 unit/mL (3 mL) subcutaneou s INJECT SUBCUTANE OUSLY 40 UNITS IN THE MORNING AND 64 UNITS IN THE AFTERNOON 04/29 completed Not Available Not Available Not Available OneTouch Verio IQ Meter DIRECTED active Not Available Not Available No t Available Tresiba FlexTouch U-100 insulin 100 unit/mL (3 mL) subcutaneou s pen INJECT 40 UNITS IN THE MORNING AND 40 UNITS IN THE EVENING SUBCUTANE OUSLY active Not Available Not Available No t Available Xiidra 5 % eye drops in a dropperette INSTILL 1 DROP IN BOTH EYES TWICE A DAY active Not Available Not Available No t Available Firvanq 25 mg/mL oral solution TAKE 5ML BY MOUTH EVERY 6 HOURS FOR 7 DAYS. DISCARD REMAINDER 04/29 completed Not Available Not Available Not Available BD Rosita 2nd Gen Pen Needle 32 gauge x /32 USE DIRECTED TO INJECT INSULIN 5 TIMES A DAY active Not Available Not Available No t Available OneTouch Delica Plus Lancing Device kit USE DIRECTED active Not Available Not Available No t Available Fluzone High-Dose Quad (PF) 240 mcg/0.7 mL IM syringe PHARMACY ADMINISTE RED active Not Available Not Available No t Available Vitals Date Recorded Body height Body temperature Body mass index (BMI) Body weight Heart rate Systolic blood pressure Diastolic blood pressure Provider Name and Address Organization Details Last Updated DateTime 0 166.37 cm 97 [degF] 30.2 kg/m2 04715 g 60 /min 145 mm[Hg] 51 mm[Hg] Vivian Henderson in [facility], 0 12:56:42 Date Recorded Body height Provider Name an d Address Organization Details Last Updated DateTime 02/04/2021 166.37 cm Abby Osegueraalex Abdullahi es in [facility], 02/04/2021 09:08:28 Date Recorded Body weight Body mass index (BMI) Body height Body temperature Heart rate Systolic blood pressure Diastolic blood pressure Provider Name and Address Organization Details Last Updated DateTime 2 78076.7 6 g 24.9 kg/m2 166.37 cm 97.9 [degF] 74 /min 157 mm[Hg] 61 mm[Hg] Vivian Henderson in [facility], 2 09:52:32 Date Recorded Body height Provider Name an d Address Organization Details Last Updated DateTime 10/05/2022 166.37 cm Abby Jossue Abdullahi es in [facility], 10/05/2022 09:58:12 Social History Question Answer Notes LastModified by Organizat ion Details LastModified Time Tobacco Smoking Status Never Smoker Not Available [facility] 10/01/2020 03:19:42 What Is Your Level Of Caffeine Consumption? Occasional [id number] Information not available 10/01/2020 In The 14 Days Before Symptom Onset, Have You Had Close Contact With A Laboratory-confir med COVID-19 While That Case Was Ill? No Information not available 04/29/2022 In The 14 Days Before Symptom Onset, Have You Had Close Contact With A Person Who Is Under Investigation For COVID-19 While That Person Was Ill? No Information not available 04/29/2022 Have You Been To An Area Known To Be High Risk For COVID-19? No Information not available 04/29/2022 What Type Of Diet Are You Following? REGULAR [id number] Information not available 10/01/2020 Which Illicit Or Recreational Drugs Have You Used? No [id number] Information not available 10/01/2020 Do You Reside In Or Have You Traveled To An Area Where Ebola Virus Transmission Is Active? No [id number] Information not available 10/01/2020 Education 4 Year College Informatio n not available 03/17/2013 How Many Days In The Past Year Have You Had A Heavy Drinking Consumption (4+ Female, 5+ Male)? 0 Information no t available 03/28/2018 Are There Any Guns Present In Your Home? No Information not available 04/29/2022 High Number Of Sexual Partners No Information not available 03/28/2018 To Which Gender Do You Self-identify? Female Information not available 03/28/2018 Marital Status Informatio n not available 04/29/2022 What Was The Date Of Your Most Recent Tobacco Screening? 06/15/2019 [id number] Information not available 10/01/2020 What Is Your Relationship Status? Information not available 04/29/2022 Are You Sexually Active? No [id number] Information not available 10/01/2020 How Much Tobacco Do You Smoke? No [id number] Information not available 10/01/2020 General Stress Level Medium Information not available 03/17/2013 How Many Years Have You Smoked Tobacco? 0 [id number] Information not available 10/01/2020 Have You Recently (within The Last 12 Weeks, Or During A Current ) Traveled To Or Lived In A Zika-affected Area? No Information not available 03/28/2018 Sex: Female Functional Status Question Answer Note LastModified by Organizat ion Details LastModified Time Do you use any illicit or recreational drugs? No Information not available 04/29/2022 What is your level of alcohol consumption? None [id number] Information not available 10/01/2020 Do you or have you ever used smokeless tobacco? Never used smokeless tobacco [id number] Information not available 10/01/2020 Are you currently employed? No Information not available 04/29/2022 What is your occupation? retired [id number] Information not available 10/01/2020 Do you or have you ever used e-cigarettes or vape? Never used electronic cigarettes [id number] Information not available 10/01/2020 What is your exercise level? None [id number] Information not available 10/01/2020 Mental Status Question Answer Note LastModified by Organization D etails LastModified Time Do you feel stressed (tense, restless, nervous, or anxious, or unable to sleep at night)? [id number] Information not available 04/29/2022 Family History Relationship Description Onset Age of this Age Resolved Age Notes LastModified by Organization Details LastModified Time Father Malignant neoplastic disease malorie marie (previ ously record ed as Cancer ) Not available 03/23/2016 08:49:25 Brother Myocardial infarction previo usly record ed as Heart Attack ([place]) Not available 03/23/2016 08:49:25 Brother Kidney disease cancer . [email or web address] Not available 03/28/2018 10:04:08 Maternal Aunt Malignant tumor of breast previo usly record ed as Breast Cancer Not available 03/23/2016 08:49:25 Mother Malignant neoplasm of lung previo usly record ed as Lung Cancer Not available 03/23/2016 08:49:25 Medical History Condition Response Anesthesia complications N High Blood Pressure Y Candidate for MyRisk panel N Autoimmune Condition N Kidney or Bladder Problems Y Thyroid Problems Y Depression N Lung Disease N GI Problems Y Defects or Inherited Disease N Anemia N History of Ovarian Cancer N History of Breast Cancer N [place] exposure N BRCA testing in past N Osteopenia Y Psychiatric Illness N Anxiety Disorder N Diabetes Y Arthritis Y Headaches or Migraines Y Infertility N Asthma N History of Cancer N Endometriosis N Hepatitis N Heart Disease N Hypertension Y Osteoporosis N Gynecological History Statement/Question Response If Post Menopausal, Age at Menopause 58 Most Recent Bone Density Menses Monthly N Age at Menarche 13 Most Recent Mammogram 02/23/2019 Age at First Child 30 Obstetrics History GPAL:G 3 P 3 0 0 3 Type Value Full Term 3 Living 3 Total 3 Immunizations Vaccine Type Date Status Note Provider Nam e and Address Organization Details Recorded Time COVID-19, mRNA, LNP-S, PF, 100 mcg/0.5mL dose or 50 mcg/0.25mL dose 1 completed Jaida Barron MD [address] [facility],[address], [place], [address], [place] [facility], 01/07/2021 09:30:58 Influenza, split virus, trivalent, preservative 10/01/201 3 completed Sera cain [place] [facility], 03/19/2014 13:10:35 COVID-19, mRNA, LNP-S, PF, 100 mcg/0.5mL dose or 50 mcg/0.25mL dose 1 completed Jaida Barron MD [address], [place], [address], [place] [facility], 02/04/2021 09:18:15 Influenza, split virus, trivalent, preservative 4 completed Sera cain [place] [facility], 03/21/2015 08:35:46 Influenza, split virus, trivalent, preservative 5 completed Sera cain [place] [facility], 03/23/2016 08:36:11 Influenza, split virus, quadrivalent, preservative 7 completed Vivian Meczywor null [place] - [facility], 03/28/2018 10:02:11 Influenza, split virus, quadrivalent, preservative 8 completed Sera cain [place] [facility], 06/15/2019 10:37:27 Influenza, split virus, quadrivalent, preservative 9 completed Vivian Meczywor null [place] [facility], 04/29/2020 13:00:51 COVID-19, mRNA, LNP-S, PF, 100 mcg/0.5mL dose or 50 mcg/0.25mL dose 2 completed Vivian Meczywor null [place] [facility], 04/29/2022 09:51:59 Influenza, split virus, quadrivalent, preservative 1 completed Vivian Meczywor null [place] [facility], 04/29/2022 09:52:19 Past Encounters Encounter ID Performer Location Encounter Start Date Encounter Closed Date Diagnosis/Indication Diagnosis SNOMED-CT Code Diagnosis ICD10 Code Diagnosis Note [id number] MD JAIDA New MD [address] [place] [address],[address] [place] [address] 03/17/2013 10:20:03 03/17/2013 15:55:45 [id number] MD JAIDA New MD [address] [place] [address],[place] [address] 03/19/2014 12:54:24 03/19/2014 15:42:11 Screening for malignant neoplasm of cervix 319274200 Screening mammography 90201400 Swollen abdomen [id number] MD JAIDA New MD [address] [place] [address],[place] [address] 04/12/2014 12:55:54 04/12/2014 16:01:51 Oligoovulatory dysfunctional uterine bleeding [id number] MD JAIDA New MD [address] [place] [address],[address] [place] [facility] [id number] 03/21/2015 08:20:12 03/21/2015 13:12:02 Screening for malignant neoplasm of cervix 005013902 Screening for cancer [id number] MD JAIDA New MD [address] [place] [address],[address] [address] 03/23/2016 08:19:30 03/23/2016 12:59:54 Screening for malignant neoplasm of cervix 763233801 Z12.4 [id number] MD JAIDA New MD [address] [place] [address],[place] [address] 03/28/2018 09:34:22 03/28/2018 15:06:17 Screening for malignant neoplasm of cervix 312858944 Z12.4 Screening mammography 24 402622 Z12.31 Cares for self 933428910 Z76.89 [id number] MD JAIDA New MD [address] [place] [address],[place] [address] 06/15/2019 10:16:31 06/15/2019 13:16:01 Normoprolactinemic galactorrhea 973290904 N64.3 [id number] MD JAIDA NewLLAN MD [address] [place] [address] [place] [address] 04/29/2020 12:50:24 04/29/2020 13:43:00 Screening for malignant neoplasm of cervix 832857066 Z12.4 Screening mammography 24 443531 Z12.31 Screening for osteoporosis 394131037 Z13.820 [id number] MD JAIDA New MD [address] [place] [address],[facility] [place] [address] 01/07/2021 09:04:34 01/07/2021 09:52:22 Administration of viral vaccine 59952835 Z23 [id number] MD JAIDA New MD [address] [place] [address], [place] [address] 02/04/2021 09:01:10 02/04/2021 10:21:02 Administration of viral vaccine 38986847 Z23 [id number] MD JAIDA New MD [address] [place] [address],[facility] [place] [address] 04/29/2022 09:42:48 04/29/2022 11:55:45 Screening for malignant neoplasm of cervix 877174060 Z12.4 Screening mammography 24 442841 Z12.31 Screening for osteoporosis 821261667 N95.8 Candidal vulvovaginitis 60753870 B37.3 [id number] MD JAIDA New MD [address] [place] [address] [place] [address] 10/05/2022 09:57:10 10/05/2022 13:38:35 Senile osteopenia 04629876 M85.852 Chronic renal failure 90 913492 N18.4 Health Concerns Section Related Observation LastModified by Organization Detai ls LastModified Time None Recorded Concern Status LastModified by Organization Details LastModified Time None Recorded Advance Directives Directive None Recorded Payers Encounter Date Sequence Insurance Name Policy Number Policy Murphy Covered Member ID Murphy Member ID Guarantor Name 04/29/2020 1 MEDICARE B-[place]: [facility] Radha [place] [id number] Radha Adriana 04/29/2020 2 UNICARE - GIC - MEDICARE EXTENSION (INDEMNITY) [id number] Matt [place] [id number] Radha [place] 01/07/2021 1 [place]ATIONAL [employer] Radha Adriana [id number] Radha [place] 01/07/2021 2 UNICARE - GIC - MEDICARE EXTENSION (INDEMNITY) [id number] Matt [place] [id number] Radha [place] 02/04/2021 1 [place]MENT [place] Radha [place] [id number] Radha [place] 02/04/2021 2 UNICARE - GIC - MEDICARE EXTENSION (INDEMNITY) [id number] Matt [place] [id number] Radha Adriana 04/29/2022 2 UNICARE - SENIOR SERVICES PLAN F (MEDICARE SUPPLEMENT) [id number] Radha [place] [id number] Radha [place] 04/29/2022 1 [place]ERNMENT [place] Radha [place] [id number] Radha [place] 10/05/2022 2 UNICARE - SENIOR SERVICES PLAN F (MEDICARE SUPPLEMENT) [id number] Radha Adriana [id number] Radha [place] 10/05/2022 1 [place]ATIONAL [place]OVERNMENT SERVICES Radha [place] [id number] Radha [place] Notes Date Note Type Note Provider Name and Address Organization Details Recorded Time 04/29/2020 text/html She is here for annual exam, she has a different toe infected now, due to her sugars, and her neuropathy bothers her. She is seeing a research computing specialist. Her sugars are in better control now. note from 2018: She is here for annual exam. She is seeing a vascular surgeon for head of biology management of her chronic right toe infection, since November. Her diabetes has been up and down her last A1C was 6.5. No pmb since 2013 when emb was negative, weakly proliferative endometrium. She had a CT scan of the foot in November. 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 Jaida Barron MD [address] [place] [address],[address], [place], [address], [employer] [place] in [facility], 04/29/2020 13:33:53 04/29/2022 text/html She is here for annual exam, her diabetes is under better control, and she has no active foot infection this time. She was in the hospital for a month in January, for C Dif, now has vaginal pruritus. She is sad, her , and her [id number] also his was from [place], he was not vaccinated and had uncontrolled diabetes and HTN. note from 2020: She is here for annual exam, she has a different toe infected now, due to her sugars, and her neuropathy bothers her. She is seeing a research computing specialist.Her sugars are in better control now. Jaida Barron MD [address] [facility],[address], [place], [address], [employer] [facility] [place] in [facility], 04/29/2022 11:20:44 10/05/2022 text/html This visit is a phone telehealth visit. The patient consented to the visit by phone.The patient was at home at the time of the call and the provider and patient were the only people on the line.I was at [address] [facility], [address], [place], [place], at the time of the call. She has had worsening osteopenia, her T score of her left hip dropped from -1.5 to -1.9 since 2018. She is also concerned because Dr. Colvin may be starting her on dialysis soon and she has a number of good questions about that. Jaida Barron MD [address] [facility],[address], [place], [address], [employer] in [facility], 10/05/2022 11:33:46 OBGyn Episode No OBEpisode recorded.
--- OUTSIDE RECORDS SUMMARY | 2025-04-16 05:39 | XMS_ITS | Encounter Summary ---
Author Organization [facility] Address [address] [place] [address] Care Team Providers Care Stock Mixer Name Role Phone Anil Bettencourt MD Primary Care Provider [phone] Encounter Details Date Type Department Care Team (Latest Contact Info) Description 01/20/2025 Lab Requisition [facility] - Main Lab [address] [place] [address] Tyree Amador MD [address] [place] [address] Chronic kidney disease, unspecified; Type 2 [...] loved ones. For example, child and family services specialist or elderly care for an older [...] unspecified Type 2 diabetes mellitus with hyperglycemia ([facility] V24, [facility] V28) documented in this encounter Additional Health Concerns Assessment Noted Time PHQ-9 Depression Total Score: 0 10/30/20 10:57 PM EST documented as of this encounter Care Teams Stock Mixer Relationship Specialty Start Date End Date Anil Bettencourt MD [address] [place] [address] PCP - General 08/02/01 documented as of this encounter
--- OUTSIDE RECORDS SUMMARY | 2025-04-16 05:39 | XMS_ITS | Encounter Summary ---
Author Organization [facility] Address [address] [place] [address] Care Team Providers Care Certified Meeting Professional Name Role Phone Anil Bettencourt MD Primary Care Provider [phone] Encounter Details Date Type Department Care Team ([facility] Contact Info) Description 11/23/2024 Lab Requisition [facility] - Main Lab [address] [place] [address] Horace Solomon MD [address] [place] [address] Encounter for other general examination Social History [...] K/mcL LAB HEMETOLOGY METHOD 11/23/2024 9:50 AM [facility] RBC 2.60(L) 3.80 - 4.80 M/mcL LAB HEMETOLOGY METHOD 11/23/2024 9:50 AM [facility] Hemoglobin 7.9(L) 11.5 - 16.0 g/dL LAB HEMETOLOGY METHOD 11/23/2024 9:50 AM [facility] Hematocrit 23.9(L) 35.0 - 47.0 % LAB HEMETOLOGY METHOD 11/23/2024 9:50 AM [facility] MCV 90.9 79.0 - 98.0 FL LAB HEMETOLOGY METHOD 11/23/2024 9:50 AM [facility] MCH 30.0 27.0 - 32.0 pcg LAB HEMETOLOGY METHOD 11/23/2024 9:50 AM [facility] MCHC 33.1 32.0 - 37.0 g/dL LAB HEMETOLOGY METHOD 11/23/2024 9:50 AM [facility] RDW 13.2 11.0 - 15.0 % LAB HEMETOLOGY METHOD 11/23/2024 9:50 AM [facility] Platelets 328 130 - 400 K/mcL LAB HEMETOLOGY METHOD 11/23/2024 9:50 AM [facility] MPV 10.3 7.0 - 11.0 FL LAB HEMETOLOGY METHOD 11/23/2024 9:50 AM EST [facility] NRBC 0.0 <1.0 % LAB HEMETOLOGY METHOD 11/23/2024 9:50 AM EST [facility] NRBC Absolute 0.00 <0.10 K/mcL LAB HEMETOLOGY METHOD 11/23/2024 9:50 AM EST [facility] Blood Venous blood specimen / Unknown Venipuncture / Unknown 11/23/2024 6:01 AM EST 11/23/2024 8:50 AM EST us Horace Solomon MD LAB BLOOD ORDERABLES Final Res ult [facility] [address] [place] [address], [place] [phone] * (ABNORMAL) Comprehensive metabolic panel (11/23/2024 6:01 AM EST) Sodium 140 133 - 145 mmol/L LAB CHEMISTRY METHOD 11/23/2024 10:06 AM [facility] Potassium 3.6 3.5 - 5.5 mmol/L LAB CHEMISTRY METHOD 11/23/2024 10:06 AM [facility] Chloride 105 96 - 110 mmol/L LAB CHEMISTRY METHOD 11/23/2024 10:06 AM [facility] CO2 27 21 - 32 mmol/L LAB CHEMISTRY METHOD 11/23/2024 10:06 AM [facility] Anion Gap 8 3 - 11 LAB CHEMISTRY METHOD 11/23/2024 10:06 AM [facility] Glucose 134(H) 70 - 100 mg/dL LAB CHEMISTRY METHOD 11/23/2024 10:06 AM [facility] BUN 69(H) 5 - 25 mg/dL LAB CHEMISTRY METHOD 11/23/2024 10:06 AM [facility] Creatinine 3.62(H) 0.50 - 1.10 mg/dL LAB CHEMISTRY METHOD 11/23/2024 10:06 AM [facility] eGFR 12(L) >=60 mL/min/1. 73m2 LAB CHEMISTRY METHOD 11/23/2024 10:06 AM [facility] Comment:Calculation based on the??Chronic Kidney Disease Epidemiology Collaboration (CKD-EPI) equation refit??without adjustment for race. BUN/Creatinine Ratio 19.1 LAB CHEMISTRY METHOD 11/23/2024 10:06 AM [facility] Calcium 8.6 8.5 - 10.5 mg/dL LAB CHEMISTRY METHOD 11/23/2024 10:06 AM [facility] AST (SGOT) 13 10 - 42 unit/L LAB CHEMISTRY METHOD 11/23/2024 10:06 AM [facility] ALT (SGPT) 11 10 - 60 unit/L LAB CHEMISTRY METHOD 11/23/2024 10:06 AM [facility] Alkaline Phosphatase 160(H) 42 - 121 unit/L LAB CHEMISTRY METHOD 11/23/2024 10:06 AM [facility] Total Protein 6.2 6.0 - 8.0 g/dL LAB CHEMISTRY METHOD 11/23/2024 10:06 AM [facility] Albumin 2.7(L) 3.2 - 5.0 g/dL LAB CHEMISTRY METHOD 11/23/2024 10:06 AM [facility] Total Bilirubin 0.5 0.0 - 1.4 mg/dL LAB CHEMISTRY METHOD 11/23/2024 10:06 AM [facility] Blood Venous blood specimen / Unknown Venipuncture / Unknown 11/23/2024 6:01 AM EST 11/23/2024 8:50 AM EST us Horace Solomon MD LAB BLOOD ORDERABLES Final Res ult [facility] [address] [place] [address], documented in this encounter Visit Diagnoses Diagnosis Encounter for other general examination documented in this encounter Additional Health Concerns Infection Onset Date Last Indicated Resolved Time Respiratory Rule-Out 11/26/2024 11/26/2024 024 6:03 PM EST Gastrointestinal Rule-Out 11/30/2024 11/30/2024 7:06 PM EST Assessment Noted Time PHQ-9 Depression Total Score: 0 10/30/20 24 10:57 PM EST documented as of this encounter Care Teams Certified Meeting Professional Relationship Specialty Start Date End Date Anil Bettencourt MD [address] [place] [address] PCP - General 08/02/01 documented as of this encounter
[2025-04-16 06:22] LABS: Basophils Absolute Auto 0.1 X10*3/uL (0.0-0.2); Basophils Percent Auto 0.5 % (0-2); Eosinophils Absolute Auto 0.1 X10*3/uL (0.0-0.4); Eosinophils Percent Auto 0.9 % (0-4); Hematocrit 24.5 % (37.0-47.0); Hemoglobin 7.6 g/dl (12.0-16.0); Imm Gran Abs Auto 0.16 X10*3/uL (0.00-0.03); Imm Gran Pct Auto 1.4 % (0.0-0.4); Lymphocytes Absolute Auto 0.6 X10*3/uL (1.2-4.9); Mean Corpuscular Hemoglobin 29.9 pg (27.0-33.0); Mean Corpuscular Volume 96.5 fL (80.0-98.0); Mean Platelet Volume 9.7 fL (9.4-12.3); Monocytes Absolute Auto 0.7 X10*3/uL (0.1-1.2); Monocytes Percent Auto 6.4 % (2-11); Neutrophils Absolute Auto 9.6 x10*3/uL (2.0-8.3); Neutrophils Percent Auto 85.8 % (45-73); Platelet Count 239 X10*3/uL (160-400); Red Blood Count 2.54 X10*6/uL (4.20-5.50); White Blood Count 11.2 X10*3/uL (4.8-10.8)
[2025-04-16 06:44] LABS: Anion Gap 18 (12-20); Blood Urea Nitrogen 37 mg/dL (9-16); Calcium 8.3 mg/dL (8.4-10.2); Carbon Dioxide 22 mmol/L (22-29); Chloride 100 mmol/L (96-108); Estimated Glomerular Filt Rate 15; Glucose Random 110 mg/dL (60-115); Potassium 4.8 mmol/L (3.3-5.1); Sodium 135 mmol/L (135-145)
== END 2025-04-16 05:37 | disposition home or self-care (01) ==
LOC: HO.MMNH2L 05:36
PROVIDERS: Visit Provider Student in an Organized Health Care Education/Training Program
DX: E11.22 Type 2 diabetes mellitus with diabetic chronic kidney disease (principal); N18.6 End stage renal disease
CPT/HCPCS: 36415; 80048; 85025